=== PATIENT | female | born 1950 | race Caucasian/White ===

== ENCOUNTER → 2016-09-26 | Outpatient (CLI) | payer OTHER ==
[~2016-09-26] MED LIST: AMOX875T PO; ASPI81TA28 PO; BUPR150T7 PO; BUSP-8 PO; CALCTAB5 PO; CYAN100020 PO; DSY100 PO; FLNIN NAE; FOLI1TAB8 PO; HYDR-5688 PO; HYDR12.56 PO; HYDR1TAB2 PO; HYDR25CA PO; LEVO75TA5 PO; LISI-461 PO; MAGIC1 PO; METO5TAB2 PO; MTH25 PO; OMEP20CA59 PO; PHYT100T PO; POTA20TA16 PO; PRC4 PO; RANI300T PO; RGL5 PO; SENNTAB13 PO
--- NOTE | 2016-09-26 14:32 | DIAGNOSTIC IMAGING REPORT ---
VIDEO SWALLOW HISTORY: Dysphagia PHARYNGEAL ESOPHAGEAL DYSPHAGIA TECHNIQUE: Video fluoroscopic evaluation of swallowing was performed in the AP and lateral projections by the speech pathology staff. The patient is fed nectar-thick and thin liquid barium, a barium coated wafer, and barium pudding. FLUOROSCOPY TIME: 3.5 minutes. COMPARISON STUDY: 02/21/2009 FINDINGS: Unremarkable oral and hypopharyngeal motility. No evidence for aspiration. Mild esophageal dysmotility and/or spasm. Operative findings of the gastroesophageal junction consistent with a prior Americo fundoplication. Mild gastroesophageal reflux. IMPRESSION: 1. No aspiration identified. Postoperative change gastroesophageal junction. Mild gastroesophageal reflux. Mild esophageal dysmotility 2. Please see the speech pathologist report for detailed findings and recommendations. Electronically signed by: Oliver Cisse M.D. 09/26/2016 2:30 PM Dictated Date/Time: 09/26/2016 2:27 PM
--- NOTE | 2016-09-27 15:15 | SWALLOWING EVALUATION ---
HISTORY: This 66 year-old woman was referred for a VFSS at [facility] in order to rule out aspiration and address c/o food becoming "stuck" in her throat and esophagus. The patient has a PMH significant for Americo fundoplication, gastroparesis, GERD, hypertension, falls, LE edema, and rhabdomyolysis. Currently the patient's diet level is regular. PROCEDURE: The patient was seen in the Radiology Department of [facility] for the VFSS. Cursory examination of the oral cavity revealed an upper partial of adequate fit, natural lowers in good condition. Movement of the articulators was WNL. The patient was seated on a stool and was viewed in both the Anterior-Posterior (A-P) and Lateral planes. Volitional phonation exercises completed in the A-P plane revealed bilateral vocal fold movement and vocal intensity within functional limits. In the lateral plane, the patient was given the following boluses: 1 tsp. thin liquid barium x 2, single swallow thin liquid barium self-presented from a cup, sequential swallows of thin liquid barium self-presented from a straw, 1 tsp. nectar-thick liquid barium, single swallow nectar-thick liquid barium self-presented from a cup, 1 tsp. barium pudding, and 1 club cracker with barium paste. The patient was then repositioned into the A-P plane and given the following boluses: 1 tsp. nectar-thick liquid barium and 1 tsp. barium pudding. RESULTS: Oral Stage: There was no anterior loss of bolus, indicating good lip closure. The patient was able to maintain a cohesive liquid bolus upon command without any lateral or posterior loss. Mastication was timely and efficient. Lingual motion for bolus transport was mildly slow. There was trace retention lining the tongue after the swallow. The initiation of the pharyngeal swallow occurred when the bolus head reached the valleculae. Pharyngeal Stage: Soft palate elevation was complete. Laryngeal elevation revealed complete superior movement of the thyroid cartilage with complete approximation of the arytenoids to the epiglottic base. Anterior hyoid excursion, epiglottic deflection, and laryngeal vestibular closure were complete. The pharyngeal stripping wave was present and complete. Pharyngeal contraction in the A-P plane was complete. The opening to the pharyngoesophageal segment (PES) was complete with distention and duration of the opening, no obstruction of bolus flow. Trace retention was located between the tongue base and pharyngeal wall during the swallow, indicating mild impairment. There was trace retention lining the base of the tongue and pyriforms after the swallow. There was no evidence of laryngeal penetration or aspiration during this study. Esophageal Stage: There was noted esophageal retention (mid-distal) with retrograde flow below the PES. SUMMARY/RECOMMENDATIONS: This patient presents with normal lester-pharyngeal swallowing mechanics. The patient presents with s/s esophageal dysfunction. The following is recommended: 1. Regular "slippery" diet 2. Aspiration and GERD precautions, straws OK 3. Small frequent meals. Frequent rest breaks and alternating solids and liquids throughout the meal. Begin each meal with a warm, decaffeinated beverage. 4. Follow up with PCP and GI as indicated with any increased difficulty. A summary of the results and recommendations was discussed with the patient and understanding was verbalized. The patient was provided with both verbal and written education re: a slippery diet, used with individual with esophageal dysfunction to assist with comfort while eating. These included examples of different "slippery" food consistencies and strategies for swallow safety as outlined above. Verbal understanding was given. Thank you for referral of this patient. Please contact me at if any additional information is needed.
== END | disposition home or self-care (01) ==
LOC: C.RAD 13:46
PROVIDERS: ATTEND Internal Medicine
DX: R13.14 Dysphagia, pharyngoesophageal phase (principal); K21.9 Gastro-esophageal reflux disease without esophagitis; K22.4 Dyskinesia of esophagus

== ENCOUNTER 2017-03-31 17:41 | Emergency (ER) | payer OTHER ==
[~2017-03-31] VITALS: Ht 162.6 cm; Wt 105.1 kg
[~2017-03-31 17:41] MED LIST changes: -AMOX875T PO; -FOLI1TAB8 PO; -HYDR-5688 PO; -MAGIC1 PO; -METO5TAB2 PO; -MTH25 PO; -PHYT100T PO; -PRC4 PO
[2017-03-31 17:44] VITALS: TEMP 36.9; Ht 162.6 cm; Wt 105.1 kg
[2017-03-31] MEDS ORDERED: MAGIC1 PO (18:44)
--- NOTE | 2017-03-31 18:51 | EMERGENCY ROOM VISIT NOTE ---
ED Visit Note First contact with patient: 18:17 CHIEF COMPLAINT: Mouth ulcer HISTORY OF PRESENT ILLNESS: This 66-year-old female patient presents to the emergency department with her daughter, complaining of an ulcer on her left upper gum x1 week. The patient states since she initially noticed the ulcer, she has been doing salt water gargles, using dental gel, and taking a medication with lidocaine which her daughter gave her. She states she feels that the ulcer is spreading, and getting larger toward her intercom on the roof of her mouth. The patient does state she recently had her knee replaced and back surgery, so is concerned that she could have an infection that may spread to the surgical sites. The patient denies recent illness, fever, chills, nausea , diarrhea, constipation. She also denies drainage from the lesion. The patient has not taken any OTC pain medications. She has not seen her family doctor or dentist regarding the lesion. The patient does wear dentures, however she has been unable to wear them since she initially noticed the ulcer. REVIEW OF SYSTEMS: A 6-system review of systems was performed with positives and pertinent negatives listed in the history of present illness. All other systems were reviewed and are negative. ALLERGIES: Morphine, statins MEDICATIONS: Reglan, Lortab, Prilosec, Wellbutrin, buspirone, lisinopril, potassium supplement, Synthroid, Flonase, aspirin, calcium, ranitidine, vitamin B12, trazodone, hydroxyzine, stool softener plus laxative. I did personally review the patient's medications with her. PMH: Chronic pain, depression, anxiety, hypertension, hypothyroidism, hypokalemia, GERD, seasonal allergies SOCIAL HISTORY: The patient lives locally with her family. She denies drug, alcohol, tobacco use. PHYSICAL EXAM: VITALS: Vitals are noted on the nurse's note and reviewed by myself. Vital signs stable. GENERAL: 36-year-old female, in no acute distress, nondiaphoretic, well- developed well-nourished. SKIN: Capillary reflex less than 2 seconds. HEENT: Normocephalic. PERRLA. EOMI. Nares patent. Mucous membranes moist. Approximately 1 cm ulcer noted noted on left upper gum. Patient does not have natural teeth. There is no drainage, discharge, bleeding coming from the ulceration at this time. Neck is supple without nuchal rigidity. HEART: Regular rate and rhythm without murmurs gallops or rubs. LUNGS: Clear to auscultation bilaterally without wheezes, rales or rhonchi. No retractions or accessory muscle use. MUSCULOSKELETAL: No gross musculoskeletal defects. No pedal edema. No calf tenderness. NEURO: Patient was alert and oriented to person place and time. Normal sensation to light and sharp touch. Deep tendon reflexes 2+ throughout. No focal neurological deficits. EMERGENCY DEPARTMENT COURSE: The patient was seen and evaluated as above. I discussed with her proper treatment for ulcers, and also discussed with her the most likely viral etiology of illness. I advised her of home care instructions , and strongly encouraged her to follow up outpatient with her primary care provider and/or dentist. DIFFERENTIAL DIAGNOSIS: Tench mouth, abscess, bacterial infection, viral infection, HIV, diabetes skin lesion, malignancy, and others DIAGNOSIS: Mouth ulcer DISCHARGE INSTRUCTIONS & TREATMENT: For pain control, you can use the following [id number]-[id number] medicines (if >12 yo): - Regular strength (325mg/tab) Tylenol (acetaminophen) 2 tabs every 4-6 hours as needed. Do not exceed 12 tablets in a 24 hour period. Avoid taking more than 4 grams (4000 mg) of Tylenol per day. This includes any other sources of acetaminophen you may take on a regular basis. - Regular strength (200 mg/tab) Advil (ibuprofen) 1-2 tabs every 4-6 hours as needed. Do not exceed a dose of 3200 mg per day. Use Magic swizzle as directed for discomfort of your mouth related to mouth ulcer. Do not wear dentures until lesion has completely resolved. Eat soft, lukewarm foods until lesion has resolved. Please follow-up with your primary care provider at your regularly scheduled appointment on April 03, this week, for further evaluation and care. Return to the emergency department if you experience fever, chills, nausea, vomiting, body aches, drainage from the lesion, or other associated symptoms. Problem List Medical Problems: (1) Anemia Status: Chronic (2) Anxiety Status: Chronic (3) Depression Status: Chronic (4) Diverticulitis Of Colon With Hemorrhage Status: Resolved (5) Dyslipidemia Status: Chronic (6) Gastroparesis Status: Chronic (7) GERD (gastroesophageal reflux disease) Status: Chronic (8) Hiatal hernia Status: Chronic (9) History of Americo fundoplication Status: Resolved (10) HTN (hypertension) Status: Chronic (11) Hypothyroidism Status: Chronic Surgical Problems: (1) H/O nasal septoplasty Status: Resolved (2) H/O total knee replacement Permanent Comment: bilateral Status: Resolved (3) History of cholecystectomy Status: Resolved (4) History of Americo fundoplication Status: Resolved Current/Historical Medications Scheduled Aspirin (Aspirin Ec), 81 MG PO DAILY Bupropion Hcl (Wellbutrin Sr), 150 MG PO DAILY Buspirone Hcl (Buspirone Hcl), 20 MG PO TID Calcium (Caltrate), 600 MG PO BID Cyanocobalamin (Vitamin B12), 1,000 MCG PO DAILY Fluticasone Propionate (Fluticasone Propionate), 2 SPRAY JOSE LUIS DAILY Hydrochlorothiazide (Hctz), 1 CAP PO DAILY Hydrocodone/Acetaminophen 5MG/500MG (Lortab 5MG/500MG), 1 TABLET PO Q4-6HR PRN Hydroxyzine Pamoate (Vistaril), 1 CAP PO DAILY Levothyroxine Sodium (Levothyroxine Sodium), 75 MCG PO DAILY Lisinopril (Lisinopril), 10 MG PO DAILY Metoclopramide (Reglan *), 5 MG PO ACHS Omeprazole (Prilosec), 20 MG PO DAILY Potassium Ext Rel (Klor-Con), 20 MEQ PO DAILY Ranitidine Hcl (Zantac), 300 MG PO HS Sennosides-Docusate Sodium (Stool Softener Plus Laxat), 4 TABS PO HS Trazodone HCl (Trazodone HCl), 200 MG PO HS Scheduled PRN Diphenhy/Alum/Mag/Sucralfa (Magic Swizzle - Diphenhy/Alum/Mag/Sucralfa), 1 TSP PO Q4H PRN for Pain Allergies Coded Allergies: Morphine (Verified Adverse Reaction, Intermediate, HYPOTENSION, 03/31/17) Statins (Verified Adverse Reaction, Intermediate, SHORTNESS OF BREATH, 07/08) Rhabdomyolysis Vital Signs Date Time Temp Pulse Resp B/P (MAP) Pulse Ox O2 Delivery O2 Flow Rate FiO2 03/31/17 18:59 79 16 143/81 96 03/31/17 17:44 36.9 88 20 122/73 95 Room Air Departure Information Impression Primary Impression: Mouth ulceration Dispostion Home / Self-Care Condition GOOD Prescriptions Diphenhy/Alum/Mag/Sucralfa (Magic Swizzle - Diphenhy/Alum/Mag/Sucralfa) Susp 1 TSP PO Q4H Y for Pain, #200 ML 1 Refill 30ML DIPHENHYDRAMINE SLN 12.5/5ML 60ML MAALOX 4GM CARAFATE SWISH AND SPIT Prov: June Cannon PA-C 03/31/17 Referrals Rae Dominguez M.D. (PCP) Patient Instructions My [facility], Sores Mouth Ch Additional Instructions For pain control, you can use the following hpbo-rni-flvbflf medicines (if >12 yo): - Regular strength (325mg/tab) Tylenol (acetaminophen) 2 tabs every 4-6 hours as needed. Do not exceed 12 tablets in a 24 hour period. Avoid taking more than 4 grams (4000 mg) of Tylenol per day. This includes any other sources of acetaminophen you may take on a regular basis. - Regular strength (200 mg/tab) Advil (ibuprofen) 1-2 tabs every 4-6 hours as needed. Do not exceed a dose of 3200 mg per day. Use Magic swizzle as directed for discomfort of your mouth related to mouth ulcer. Do not wear dentures until lesion has completely resolved. Eat soft, lukewarm foods until lesion has resolved. Please follow-up with your primary care provider at your regularly scheduled appointment on April 03, this week, for further evaluation and care. Return to the emergency department if you experience fever, chills, nausea, vomiting, body aches, drainage from the lesion, or other associated symptoms.
[2017-03-31 18:59] VITALS: BP 143/81; PULSE 79; O2SAT 96
== END 2017-03-31 19:00 | disposition home or self-care (01) ==
LOC: C.EDB 17:41 → C.EDD 19:00
DX: K06.8 Other specified disorders of gingiva and edentulous alveolar ridge (principal); Z98.890 Other specified postprocedural states; Z79.899 Other long term (current) drug therapy; G89.29 Other chronic pain; F32.9 Major depressive disorder, single episode, unspecified; F41.9 Anxiety disorder, unspecified; I10 Essential (primary) hypertension; E03.9 Hypothyroidism, unspecified; E87.6 Hypokalemia; K21.9 Gastro-esophageal reflux disease without esophagitis; D64.9 Anemia, unspecified; E78.5 Hyperlipidemia, unspecified; K31.84 Gastroparesis; Z96.653 Presence of artificial knee joint, bilateral; Z90.49 Acquired absence of other specified parts of digestive tract; Z79.82 Long term (current) use of aspirin

== ENCOUNTER 2017-06-26 12:46 | Emergency (ER) | payer OTHER ==
[~2017-06-26] VITALS: Ht 162.6 cm; Wt 103.4 kg
[~2017-06-26 12:46] MED LIST changes: +MAGIC1 PO
[2017-06-26 12:55] VITALS: TEMP 36.6; Ht 162.6 cm; Wt 103.4 kg
--- NOTE | 2017-06-26 13:16 | EMERGENCY ROOM VISIT NOTE ---
History First contact with patient: 13:06 Chief Complaint: FLANK PAIN Stated Complaint: PAIN IN LOWER LEFT SIDE History of Present Illness The patient is a 66 year old female who presents to the Emergency Room with complaints of lower abdominal pain which started approx 3 days prior . She states that the pain is a cramping nature with gradual onset and affects the LLQ > RLQ. The patient states that it is a 4/10 pain with no specific aggravating factors. The patient notes that she has a history of diverticulitis and this is similar in nature to previous episodes. She has a history of cholecystectomy and hiatal hernia repair. The patient also notes that she has no history of nephrolithiasis. She denies change in bowel habits, hematuria, hematochezia, fever or chest pain. Review of Systems A 10 point review of systems was completed and negative aside from above Past Medical/Surgical History Medical Problems: (1) Anemia (2) Anxiety (3) Depression (4) Diverticulitis Of Colon With Hemorrhage (5) Dyslipidemia (6) Gastroparesis (7) GERD (gastroesophageal reflux disease) (8) Hiatal hernia (9) History of Americo fundoplication (10) HTN (hypertension) (11) Hypothyroidism (12) Myopathy Surgical Problems: (1) H/O nasal septoplasty (2) H/O total knee replacement (3) History of cholecystectomy (4) History of Americo fundoplication Family History Cancer Diabetes mellitus Gallbladder disease Heart disease Hypertension Kidney disease Kidney stones Social History Smoking Status: Never Smoker Smokeless Tobacco Use: No Alcohol Use: occasionally Drug Use: none Marital Status: Housing Status: lives with family Occupation Status: retired Current/Historical Medications Scheduled Amoxicillin & Pot Clavulanate (Augmentin 875-125 mg), 1 TAB PO BID Aspirin (Aspirin Ec), 81 MG PO DAILY Bupropion Hcl (Wellbutrin Sr), 150 MG PO DAILY Buspirone Hcl (Buspirone Hcl), 20 MG PO TID Cyanocobalamin (Vitamin B12), 1,000 MCG PO DAILY Cyproheptadine HCl (Cyproheptadine HCl), 4 MG PO DAILY Folic Acid (Folvite), 1 MG PO DAILY Levothyroxine Sodium (Levothyroxine Sodium), 75 MCG PO DAILY Lisinopril (Lisinopril), 10 MG PO DAILY Methotrexate (Methotrexate), 6 TAB PO WK Metoclopramide Hcl (Metoclopramide Hcl), 5 MG PO TID Omeprazole (Prilosec), 20 MG PO DAILY Phytonadione (Vitamin K), 200 MCG PO DAILY Potassium Ext Rel (Klor-Con), 20 MEQ PO DAILY Trazodone HCl (Trazodone HCl), 200 MG PO HS Scheduled PRN Hydrocodone/Acetaminophen 5MG/325MG ([place] 5MG/325MG), 1 TAB PO Q4H PRN for Pain Allergies morphine, statins Physical Exam Vital Signs Date Time Temp Pulse Resp B/P (MAP) Pulse Ox O2 Delivery O2 Flow Rate FiO2 06/26/17 14:04 74 18 167/96 96 Room Air 06/26/17 12:55 36.6 75 18 159/86 97 Room Air Physical Exam General: ambulatory, not in acute distress Skin: no rashes noted, no suspicious lesions, no areas of inflammations/ lacerations/ erythema noted CVS: S1/ S2 noted, RRR, no rubs/ murmurs noted, no cyanosis RVS: Clear throughout bilaterally, not in acute respiratory distress, no wheezing/ rales/ crackles noted ENT: no erythema/ injection/ ulcerations noted in the pharynx, no lymphadenopathy Neck: inspection WNL, full ROM of neck ABD: BSx4, mild pain/ tenderness on palpation to lower abdomen without rebound , no organomegaly, negative salazar's, psoas, Rovsing, CVA tenderness MSK: inspection of all limbs WNL, motor and sensation intact in all limbs, no swelling/ pain on palpation of joints NVS: PERRL, EOMI, sensation intact in all extremities Lymph: No lymphadenopathy palpable Medical Decision & Procedures ER Provider Diagnostic Interpretation: [~ rep ct add3]] CT OF THE ABDOMEN AND PELVIS WITHOUT CONTRAST, STONE PROTOCOL CLINICAL HISTORY: Left lower quadrant abdominal pain. COMPARISON STUDY: CT of the abdomen and pelvis April 30, 2009. TECHNIQUE: Helical axial images of the abdomen and pelvis were obtained without IV or oral contrast according to renal stone protocol. A dose lowering technique was utilized adhering to the principles of ALARA. FINDINGS: Visualized portions of the lower chest demonstrate a small hiatal hernia and a trace left pleural effusion. No renal, ureteral or bladder calculi are present. There is no hydronephrosis or hydroureter. Evaluation of the remainder of the abdomen and pelvis is suboptimal on this unenhanced exam. There is no biliary ductal dilatation status post cholecystectomy. Unenhanced images of liver, spleen, adrenal glands and pancreas are normal. There is no evidence for a bowel obstruction. There is extensive colonic diverticulosis. There is minimal infiltration adjacent to a diverticulum of the posterior aspect of the distal descending colon shown best on axial image 313 of 481. This reflects mild acute diverticulitis. No free air or abscess is present. There is no lymphadenopathy. No suspicious skeletal lesions are identified. Postoperative findings within the lumbar spine are noted. IMPRESSION: 1. Mild acute diverticulitis of the distal descending colon. No free air or abscess. 2. No urinary calculi or hydronephrosis. 3. Small hiatal hernia and trace left pleural effusion. Laboratory Results 06/26/17 13:11 Red Blood Count 3.63, Mean Corpuscular Volume 94.2, Mean Corpuscular Hemoglobin 30.9, Mean Corpuscular Hemoglobin Concent 32.7, Mean Platelet Volume 8.4, Neutrophils (%) (Auto) 50.7, Lymphocytes (%) (Auto) 33.0, Monocytes (%) (Auto) 11.9, Eosinophils (%) (Auto) 3.8, Basophils (%) (Auto) 0.4, Neutrophils # (Auto ) 5.19, Lymphocytes # (Auto) 3.38, Monocytes # (Auto) 1.22, Eosinophils # (Auto ) 0.39, Basophils # (Auto) 0.04 06/26/17 13:11 Test 06/26/17 13:06 06/26/17 13:11 Creatine Kinase MB Ratio (0-3.0) White Blood Count 10.24 K/uL (4.8-10.8) Red Blood Count 3.63 M/uL (4.2-5.4) Hemoglobin 11.2 g/dL (12.0-16.0) Hematocrit 34.2 % (37-47) Mean Corpuscular Volume 94.2 fL (80-100) Mean Corpuscular Hemoglobin 30.9 pg (25-34) Mean Corpuscular Hemoglobin Concent 32.7 g/dl (32-36) Platelet Count 275 K/uL (130-400) Mean Platelet Volume 8.4 fL (7.4-10.4) Neutrophils (%) (Auto) 50.7 % Lymphocytes (%) (Auto) 33.0 % Monocytes (%) (Auto) 11.9 % Eosinophils (%) (Auto) 3.8 % Basophils (%) (Auto) 0.4 % Neutrophils # (Auto) 5.19 K/uL (1.4-6.5) Lymphocytes # (Auto) 3.38 K/uL (1.2-3.4) Monocytes # (Auto) 1.22 K/uL (0.11-0.59) Eosinophils # (Auto) 0.39 K/uL (0-0.5) Basophils # (Auto) 0.04 K/uL (0-0.2) RDW Standard Deviation 49.5 fL (36.4-46.3) RDW Coefficient of Variation 14.6 % (11.5-14.5) Immature Granulocyte % (Auto) 0.2 % Immature Granulocyte # (Auto) 0.02 K/uL (0.00-0.02) Urine Color YELLOW Urine Appearance CLEAR (CLEAR) Urine pH 6.0 (4.5-7.5) Urine Specific [place] 1.010 (1.000-1.030) Urine Protein NEG (NEG) Urine Glucose (UA) NEG (NEG) Urine Ketones NEG (NEG) Urine Occult Blood NEG (NEG) Urine Nitrite NEG (NEG) Urine Bilirubin NEG (NEG) Urine Urobilinogen NEG (NEG) Urine Leukocyte Esterase NEG (NEG) Anion Gap 9.0 mmol/L (3-11) Est Creatinine Clear Calc Drug Dose 81.1 ml/min Estimated GFR () 88.3 Estimated GFR (Non- 76.2 BUN/Creatinine Ratio 10.5 (10-20) Calcium Level 8.6 mg/dl (8.5-10.1) Total Bilirubin 0.2 mg/dl (0.2-1) Aspartate Amino Transf (AST/SGOT) 23 U/L (15-37) Alanine Aminotransferase (ALT/SGPT) 35 U/L (12-78) Alkaline Phosphatase 69 U/L (45-117) Creatine Kinase MB 37.8 ng/ml (0.5-3.6) Troponin I < 0.015 ng/ml (0-0.045) Total Protein 7.2 gm/dl (6.4-8.2) Albumin 3.2 gm/dl (3.4-5.0) Globulin 4.0 gm/dl (2.5-4.0) Albumin/Globulin Ratio 0.8 (0.9-2) Lipase 120 U/L (73-393) Medications Administered Medications (Trade) Dose Ordered Sig/Michel Route Start Time Stop Time Status Last Admin Dose Admin Sodium Chloride 1,000 ml @ 999 mls/hr Q1H1M ONCE IV 06/26/17 14:00 06/26/17 15:00 06/26/17 14:04 999 MLS/HR ED Course 1300: Patient was assessed by resident 1400: NSS 1 L bolus x 1 1415: Augmentin 875 mg x 1 PO and discussed results with patient, agreeable to d /c Medical Decision Differential diagnosis: Etiologies such as appendicitis, diverticulitis, PUD, biliary pathology, UTI, pancreatitis, obstruction, mesenteric ischemia, aortic pathology, infections, inflammatory bowel disease, renal colic, as well as others were entertained. This is a 66 yo f that is suffering from LLQ pain. CBC did not reveal any leukocytosis however did reveal an anemia of 11 however this hgb is better than her BL of 9.5-10. The patient's CMP was unremarkable and no acute processes noted. Troponin was negative with an elevated CKMB. The patient has a chronically elevated CKMB and is actually better than her BL. The patient has a normal lipase making pancreatitis unlikely. UA was unremarkable. Ct abd reflective of acute diverticulitis. Patient was given Augmentin along with a script and discussed discharge with patient along with red flags. Patient reflected understanding and was d/c home. Blood Pressure Screening Patient's blood pressure: Elevated blood pressure Blood pressure disposition: Elevated BP felt to be situational, Referred to PCP Impression Primary Impression: Diverticulitis Departure Information Dispostion Home / Self-Care Condition GOOD Prescriptions Amoxicillin & Pot Clavulanate (Augmentin 875-125 mg) 1 Tab Tab 1 TAB PO BID for 10 Days, #20 TAB Prov: Chula Ledbetter MD 06/26/17 Referrals Rae Dominguez M.D. (PCP) Patient Instructions My [facility] Problem Qualifiers Primary Impression: Diverticulitis Diverticulitis site: large intestine Diverticulitis bleeding: without bleeding Diverticulitis complication: without perforation or abscess Qualified Codes: K57.32 - Diverticulitis of large intestine without perforation or abscess without bleeding
[2017-06-26] MEDS ORDERED: FOLI1TAB7 PO (13:35)
[2017-06-26] MEDS ORDERED: PHYT100T PO (13:35)
[2017-06-26] MEDS ORDERED: HYDR-5688 PO (13:35)
[2017-06-26] MEDS ORDERED: PRC4 PO (13:35)
[2017-06-26] MEDS ORDERED: MTH25 PO (13:35)
[2017-06-26] MEDS ORDERED: METO5TAB2 PO (13:35)
[2017-06-26 13:37] LABS: BASO % 0.4 %; BASO ABS # 0.04 K/uL (0-0.2); COMPLETE YES; EOS % 3.8 %; HEMATOCRIT 34.2 % (37-47); IG% 0.2 %; LYMPH ABS # 3.38 K/uL (1.2-3.4); MEAN CELL VOLUME 94.2 fL (80-100); MEAN CORPUSCULAR HEMOGLOBIN 30.9 pg (25-34); MEAN CORPUSCULAR HGB CONC 32.7 g/dl (32-36); MEAN PLATELET VOLUME 8.4 fL (7.4-10.4); MONO % 11.9 %; NEUT % 50.7 %; PLATELET COUNT 275 K/uL (130-400); RED BLOOD COUNT 3.63 M/uL (4.2-5.4); WHITE BLOOD COUNT 10.24 K/uL (4.8-10.8)
[2017-06-26 13:41] LABS: URINE APPEARANCE CLEAR (CLEAR); URINE BILIRUBIN NEG (NEG); URINE COLOR YELLOW; URINE NITRITE NEG (NEG); UROBILINOGEN NEG (NEG); ZZUR CULT IF INDIC CLEAN CATCH NO
[2017-06-26 13:45] LABS: ALT/SGPT 35 U/L (12-78); BLOOD UREA NITROGEN 9 mg/dl (7-18); BUN/CREATININE RATIO 10.5 (10-20); CALCIUM 8.6 mg/dl (8.5-10.1); CARBON DIOXIDE 21 mmol/L (21-32); CHLORIDE 106 mmol/L (98-107); CREATININE 0.81 mg/dl (0.60-1.20); GLUCOSE 111 mg/dl (70-99); POTASSIUM 3.9 mmol/L (3.5-5.1); SODIUM 136 mmol/L (136-145)
[2017-06-26 13:50] LABS: ALB/GLOB RATIO 0.8 (0.9-2); ALKALINE PHOSPHATASE 69 U/L (45-117); AST/SGOT 23 U/L (15-37)
[2017-06-26 13:51] LABS: MANUAL MICROSCOPIC REQUIRED? NO; REVIEW REQ? NO
[2017-06-26] MEDS ORDERED: SODIUM CHLORIDE 0.9% 1000ML 1,000 ML IV ONE (14:00)
[2017-06-26 14:04] VITALS: BP 167/96; PULSE 74; O2SAT 96
--- NOTE | 2017-06-26 14:07 | DIAGNOSTIC IMAGING REPORT ---
CT OF THE ABDOMEN AND PELVIS WITHOUT CONTRAST, STONE PROTOCOL CLINICAL HISTORY: Left lower quadrant abdominal pain. COMPARISON STUDY: CT of the abdomen and pelvis April 30, 2009. TECHNIQUE: Helical axial images of the abdomen and pelvis were obtained without IV or oral contrast according to renal stone protocol. A dose lowering technique was utilized adhering to the principles of ALARA. FINDINGS: Visualized portions of the lower chest demonstrate a small hiatal hernia and a trace left pleural effusion. No renal, ureteral or bladder calculi are present. There is no hydronephrosis or hydroureter. Evaluation of the remainder of the abdomen and pelvis is suboptimal on this unenhanced exam. There is no biliary ductal dilatation status post cholecystectomy. Unenhanced images of liver, spleen, adrenal glands and pancreas are normal. There is no evidence for a bowel obstruction. There is extensive colonic diverticulosis. There is minimal infiltration adjacent to a diverticulum of the posterior aspect of the distal descending colon shown best on axial image 313 of 481. This reflects mild acute diverticulitis. No free air or abscess is present. There is no lymphadenopathy. No suspicious skeletal lesions are identified. Postoperative findings within the lumbar spine are noted. IMPRESSION: 1. Mild acute diverticulitis of the distal descending colon. No free air or abscess. 2. No urinary calculi or hydronephrosis. 3. Small hiatal hernia and trace left pleural effusion. Electronically signed by: Ahsan Mejia M.D. 06/26/2017 2:05 PM Dictated Date/Time: 06/26/2017 1:59 PM
[2017-06-26] MEDS ORDERED: AMOXICILLIN/CLAVULANATE TAB 875 MG TAB PO ONE (14:15)
[2017-06-26] MEDS ORDERED: AMOX875T PO (14:24)
--- NOTE | 2017-06-26 14:54 | EMERGENCY ROOM VISIT NOTE ---
History Report prepared by Pauline: Satinder Garcia Under the Supervision of: Dr. Shayne Jewell D.O. First contact with patient: 13:06 Chief Complaint: FLANK PAIN Stated Complaint: PAIN IN LOWER LEFT SIDE History of Present Illness The patient is a 66 year old female who presents to the Emergency Room with complaints of intermittent LLQ abdominal pain that began 3 days ago. She rates her pain mild in severity. She has a past medical history of diverticulitis and believes that she may be having episode of this. She denies any abnormal urinary symptoms, hematuria, hematochezia, melena, nausea, vomiting, diarrhea, or fevers. Source of History: patient Onset: 3 days ago Position: abdomen (LLQ) Symptom Intensity: mild Quality: other (Cramping) Timing: constant Associated Symptoms: No fevers, No nausea, No vomiting, No diarrhea, No urinary symptoms Review of Systems See HPI for pertinent positives & negatives. A total of 10 systems reviewed and were otherwise negative. Past Medical & Surgical Medical Problems: (1) Anemia (2) Anxiety (3) Depression (4) Diverticulitis Of Colon With Hemorrhage (5) Dyslipidemia (6) Gastroparesis (7) GERD (gastroesophageal reflux disease) (8) Hiatal hernia (9) History of Americo fundoplication (10) HTN (hypertension) (11) Hypothyroidism (12) Myopathy Surgical Problems: (1) H/O nasal septoplasty (2) H/O total knee replacement (3) History of cholecystectomy (4) History of Americo fundoplication Family History Cancer Diabetes mellitus Gallbladder disease Heart disease Hypertension Kidney disease Kidney stones Social History Smoking Status: Never Smoker Alcohol Use: occasionally Drug Use: none Marital Status: Housing Status: lives with family Occupation Status: retired Current/Historical Medications Scheduled Amoxicillin & Pot Clavulanate (Augmentin 875-125 mg), 1 TAB PO BID Aspirin (Aspirin Ec), 81 MG PO DAILY Bupropion Hcl (Wellbutrin Sr), 150 MG PO DAILY Buspirone Hcl (Buspirone Hcl), 20 MG PO TID Cyanocobalamin (Vitamin B12), 1,000 MCG PO DAILY Cyproheptadine HCl (Cyproheptadine HCl), 4 MG PO DAILY Folic Acid (Folvite), 1 MG PO DAILY Levothyroxine Sodium (Levothyroxine Sodium), 75 MCG PO DAILY Lisinopril (Lisinopril), 10 MG PO DAILY Methotrexate (Methotrexate), 6 TAB PO WK Metoclopramide Hcl (Metoclopramide Hcl), 5 MG PO TID Omeprazole (Prilosec), 20 MG PO DAILY Phytonadione (Vitamin K), 200 MCG PO DAILY Potassium Ext Rel (Klor-Con), 20 MEQ PO DAILY Trazodone HCl (Trazodone HCl), 200 MG PO HS Scheduled PRN Hydrocodone/Acetaminophen 5MG/325MG ([place] 5MG/325MG), 1 TAB PO Q4H PRN for Pain Allergies Coded Allergies: Morphine (Verified Adverse Reaction, Intermediate, HYPOTENSION, 03/31/17) Statins (Verified Adverse Reaction, Intermediate, SHORTNESS OF BREATH, 07/08) Rhabdomyolysis Physical Exam Vital Signs Date Time Temp Pulse Resp B/P (MAP) Pulse Ox O2 Delivery O2 Flow Rate FiO2 06/26/17 14:04 74 18 167/96 96 Room Air 06/26/17 12:55 36.6 75 18 159/86 97 Room Air Physical Exam CONSTITUTIONAL/VITAL SIGNS: Reviewed / noted above. GENERAL: Non-toxic in appearance. INTEGUMENTARY: Warm, dry, and [place]. HEAD: Normocephalic. EYES: without scleral icterus or trauma. ENT/OROPHARYNX: clear and moist. LYMPHADENOPATHY/NECK: Is supple without lymphadenopathy or meningismus. RESPIRATORY: Lungs clear and equal. CARDIOVASCULAR: Regular rate and rhythm. GI/ABDOMEN: Soft with mild LLQ tenderness. No organomegaly or pulsatile mass. No rebound or guarding. Normal bowel sounds. EXTREMITIES: Warm and well perfused. BACK: No CVA tenderness. NEUROLOGICAL: Intact without focal deficits. PSYCHIATRIC: normal affect. MUSCULOSKELETAL: Normally developed with good muscle tone. Medical Decision & Procedures ER Provider Diagnostic Interpretation: Radiology results as stated below per my review and radiologist interpretation: CT OF THE ABDOMEN AND PELVIS WITHOUT CONTRAST, STONE PROTOCOL CLINICAL HISTORY: Left lower quadrant abdominal pain. COMPARISON STUDY: CT of the abdomen and pelvis April 30, 2009. TECHNIQUE: Helical axial images of the abdomen and pelvis were obtained without IV or oral contrast according to renal stone protocol. A dose lowering technique was utilized adhering to the principles of ALARA. FINDINGS: Visualized portions of the lower chest demonstrate a small hiatal hernia and a trace left pleural effusion. No renal, ureteral or bladder calculi are present. There is no hydronephrosis or hydroureter. Evaluation of the remainder of the abdomen and pelvis is suboptimal on this unenhanced exam. There is no biliary ductal dilatation status post cholecystectomy. Unenhanced images of liver, spleen, adrenal glands and pancreas are normal. There is no evidence for a bowel obstruction. There is extensive colonic diverticulosis. There is minimal infiltration adjacent to a diverticulum of the posterior aspect of the distal descending colon shown best on axial image 313 of 481. This reflects mild acute diverticulitis. No free air or abscess is present. There is no lymphadenopathy. No suspicious skeletal lesions are identified. Postoperative findings within the lumbar spine are noted. IMPRESSION: 1. Mild acute diverticulitis of the distal descending colon. No free air or abscess. 2. No urinary calculi or hydronephrosis. 3. Small hiatal hernia and trace left pleural effusion. Electronically signed by: Ahsan Mejia M.D. 06/26/2017 2:05 PM Dictated Date/Time: 06/26/2017 1:59 PM Laboratory Results 06/26/17 13:11 Red Blood Count 3.63, Mean Corpuscular Volume 94.2, Mean Corpuscular Hemoglobin 30.9, Mean Corpuscular Hemoglobin Concent 32.7, Mean Platelet Volume 8.4, Neutrophils (%) (Auto) 50.7, Lymphocytes (%) (Auto) 33.0, Monocytes (%) (Auto) 11.9, Eosinophils (%) (Auto) 3.8, Basophils (%) (Auto) 0.4, Neutrophils # (Auto ) 5.19, Lymphocytes # (Auto) 3.38, Monocytes # (Auto) 1.22, Eosinophils # (Auto ) 0.39, Basophils # (Auto) 0.04 06/26/17 13:11 Test 06/26/17 13:06 06/26/17 13:11 Creatine Kinase MB Ratio (0-3.0) White Blood Count 10.24 K/uL (4.8-10.8) Red Blood Count 3.63 M/uL (4.2-5.4) Hemoglobin 11.2 g/dL (12.0-16.0) Hematocrit 34.2 % (37-47) Mean Corpuscular Volume 94.2 fL (80-100) Mean Corpuscular Hemoglobin 30.9 pg (25-34) Mean Corpuscular Hemoglobin Concent 32.7 g/dl (32-36) Platelet Count 275 K/uL (130-400) Mean Platelet Volume 8.4 fL (7.4-10.4) Neutrophils (%) (Auto) 50.7 % Lymphocytes (%) (Auto) 33.0 % Monocytes (%) (Auto) 11.9 % Eosinophils (%) (Auto) 3.8 % Basophils (%) (Auto) 0.4 % Neutrophils # (Auto) 5.19 K/uL (1.4-6.5) Lymphocytes # (Auto) 3.38 K/uL (1.2-3.4) Monocytes # (Auto) 1.22 K/uL (0.11-0.59) Eosinophils # (Auto) 0.39 K/uL (0-0.5) Basophils # (Auto) 0.04 K/uL (0-0.2) RDW Standard Deviation 49.5 fL (36.4-46.3) RDW Coefficient of Variation 14.6 % (11.5-14.5) Immature Granulocyte % (Auto) 0.2 % Immature Granulocyte # (Auto) 0.02 K/uL (0.00-0.02) Urine Color YELLOW Urine Appearance CLEAR (CLEAR) Urine pH 6.0 (4.5-7.5) Urine Specific Broadbent 1.010 (1.000-1.030) Urine Protein NEG (NEG) Urine Glucose (UA) NEG (NEG) Urine Ketones NEG (NEG) Urine Occult Blood NEG (NEG) Urine Nitrite NEG (NEG) Urine Bilirubin NEG (NEG) Urine Urobilinogen NEG (NEG) Urine Leukocyte Esterase NEG (NEG) Anion Gap 9.0 mmol/L (3-11) Est Creatinine Clear Calc Drug Dose 81.1 ml/min Estimated GFR () 88.3 Estimated GFR (Non- 76.2 BUN/Creatinine Ratio 10.5 (10-20) Calcium Level 8.6 mg/dl (8.5-10.1) Total Bilirubin 0.2 mg/dl (0.2-1) Aspartate Amino Transf (AST/SGOT) 23 U/L (15-37) Alanine Aminotransferase (ALT/SGPT) 35 U/L (12-78) Alkaline Phosphatase 69 U/L (45-117) Creatine Kinase MB 37.8 ng/ml (0.5-3.6) Troponin I < 0.015 ng/ml (0-0.045) Total Protein 7.2 gm/dl (6.4-8.2) Albumin 3.2 gm/dl (3.4-5.0) Globulin 4.0 gm/dl (2.5-4.0) Albumin/Globulin Ratio 0.8 (0.9-2) Lipase 120 U/L (73-393) Laboratory results as stated above per my review. Medications Administered Medications (Trade) Dose Ordered Sig/Michel Route Start Time Stop Time Status Last Admin Dose Admin Sodium Chloride 1,000 ml @ 999 mls/hr Q1H1M ONCE IV 06/26/17 14:00 06/26/17 15:00 06/26/17 14:04 999 MLS/HR Amoxicillin/ Clavulanate Potassium (Augmentin Tab) 875 mg NOW ONCE PO 06/26/17 14:15 06/26/17 14:17 DC 06/26/17 14:42 875 MG ED Course 1306: Previous medical records were reviewed. The patient was evaluated in room C7. A complete history and physical examination was performed. 1400: Sodium Chloride 1000 ml @ 999 mls/hr IV 1415: Augmentin Tab 875 mg PO 1435: On reevaluation, the patient is resting. I discussed the results and findings with the patient. She verbalized agreement of the treatment plan. She was discharged home. Medical Decision Differential considered: pancreatitis, hepatitis, or acute cholecystitis, AAA, UTI, pyelonephritis, kidney stones, appendicitis, diverticulitis, shingles, bowel obstruction mesenteric ischemia, intussusception,hernia, ovarian torsion, ruptured ovarian cyst. This is a 66-year-old female who presents to the ED with a chief complaint of left lower quadrant abdominal pain for the past 3 days. The patient reports history of diverticulitis. She denies any nausea, vomiting or diarrhea. She does not have fevers or urinary symptoms. Her exam reveals left lower quadrant abdominal tenderness. A CT scan reveals mild acute descending colonic diverticulitis. CBC and complete metabolic panel were normal and lipase is normal. Urine did not show infection. The patient was treated with Augmentin. She is felt to be stable for discharge and outpatient follow-up. Medication Reconcilliation Current Medication List: was personally reviewed by me Blood Pressure Screening Patient's blood pressure: Elevated blood pressure Blood pressure disposition: Elevated BP felt to be situational Impression Primary Impression: Diverticulitis Scribe Attestation The scribe's documentation has been prepared under my direction and personally reviewed by me in its entirety. I confirm that the note above accurately reflects all work, treatment, procedures, and medical decision making performed by me. Departure Information Dispostion Home / Self-Care Prescriptions Amoxicillin & Pot Clavulanate (Augmentin 875-125 mg) 1 Tab Tab 1 TAB PO BID for 10 Days, #20 TAB Prov: Chula Ledbetter MD 06/26/17 Referrals Rae Dominguez M.D. (PCP) Forms HOME CARE DOCUMENTATION FORM, IMPORTANT VISIT INFORMATION Patient Instructions My [facility] Additional Instructions You have been diagnosed with diverticulitis. We recommend a clear liquid diet for the next 24 hours and slowly advance diet as tolerated. You will be placed on Augmentin for treatment of the diverticulitis. Take this twice a day with food as this can cause stomach upset as well as diarrhea. If you develop worsening of changing symptoms please return to the ED. Please follow with PCP over the next week Problem Qualifiers Primary Impression: Diverticulitis Diverticulitis site: large intestine Diverticulitis bleeding: without bleeding Diverticulitis complication: without perforation or abscess Qualified Codes: K57.32 - Diverticulitis of large intestine without perforation or abscess without bleeding
== END 2017-06-26 14:54 | disposition home or self-care (01) ==
LOC: C.EDB 12:46 → C.EDC 14:54
DX: K57.32 Diverticulitis of large intestine without perforation or abscess without bleeding (principal); D64.9 Anemia, unspecified; F41.9 Anxiety disorder, unspecified; F32.9 Major depressive disorder, single episode, unspecified; E78.5 Hyperlipidemia, unspecified; K21.9 Gastro-esophageal reflux disease without esophagitis; I10 Essential (primary) hypertension; E03.9 Hypothyroidism, unspecified; Z83.3 Family history of diabetes mellitus; Z82.49 Family history of ischemic heart disease and other diseases of the circulatory system; Z79.82 Long term (current) use of aspirin

== ENCOUNTER 2017-10-28 14:30 | Inpatient (IN) | payer OTHER ==
[~2017-10-28] VITALS: Ht 160 cm; Wt 100.0 kg
[~2017-10-28 14:30] MED LIST changes: -CALCTAB5 PO; -FLNIN NAE; +FOLI1TAB8 PO; +HYDR-5688 PO; -HYDR12.56 PO; -HYDR1TAB2 PO; -HYDR25CA PO; -MAGIC1 PO; +METO5TAB2 PO; +MTH25 PO; +PHYT100T PO; +PRC4 PO; -RANI300T PO; -RGL5 PO; -SENNTAB13 PO
[2017-10-28 16:47] VITALS: BP 143/68; PULSE 81; TEMP 36.6; O2SAT 96; Ht 160 cm; Wt 100.0 kg
[2017-10-28] MEDS ORDERED: POLYETHYLENE (MIRALAX) 17 GM PACK PO PRN (17:30)
[2017-10-28] MEDS ORDERED: ACETAMINOPHEN 325 MG TAB PO PRN (17:30)
[2017-10-28] MEDS ORDERED: ONDANSETRON INJ 2 MG/ML 2 ML VIAL IV PRN (17:30)
[2017-10-28] MEDS ORDERED: SENNTAB13 PO (17:31)
[2017-10-28] MEDS ORDERED: FERR50TA3 (17:31)
[2017-10-28 17:59] LABS: HEMATOCRIT 30.7 % (37-47); HEMOGLOBIN 10.5 g/dL (12.0-16.0); MEAN CELL VOLUME 94.2 fL (80-100); MEAN CORPUSCULAR HEMOGLOBIN 32.2 pg (25-34); MEAN CORPUSCULAR HGB CONC 34.2 g/dl (32-36); MEAN PLATELET VOLUME 8.2 fL (7.4-10.4); PLATELET COUNT 255 K/uL (130-400); RED CELL DISTRIBUTION WIDTH CV 15.1 % (11.5-14.5); RED CELL DISTRIBUTION WIDTH SD 50.8 fL (36.4-46.3); WHITE BLOOD COUNT 9.74 K/uL (4.8-10.8)
[2017-10-28 18:25] LABS: INR 0.9 (0.9-1.1)
[2017-10-28 18:30] LABS: CALCIUM 8.7 mg/dl (8.5-10.1); CREATININE 0.72 mg/dl (0.60-1.20); POTASSIUM 4.4 mmol/L (3.5-5.1)
[2017-10-28] MEDS ORDERED: FLUT0.15 NAE (18:30)
[2017-10-28] MEDS ORDERED: MULT-190 PO (18:30)
[2017-10-28] MEDS ORDERED: MENA1CAP PO (18:30)
[2017-10-28] MEDS ORDERED: FERR325T5 PO (18:30)
[2017-10-28] MEDS ORDERED: RANI300T2 PO (18:30)
[2017-10-28] MEDS ORDERED: DOCUSATE SODIUM/SENNA 50/8.6MG TAB PO PRN (18:45)
[2017-10-28] MEDS: HYDROCODONE/ACETAMIN 5/325MG TAB PO PRN (19:35)
[2017-10-28] MEDS: TRAZODONE HCL 100 MG TAB PO SCH (20:47)
[2017-10-28] MEDS: ENOXAPARIN 40 MG/0.4 ML SYR SQ SCH (20:48)
[2017-10-28] MEDS: METOCLOPRAMIDE HCL 5 MG TAB PO SCH (20:50)
[2017-10-28] MEDS: RANITIDINE HCL 150 MG TAB PO SCH (20:50)
--- NOTE | 2017-10-28 23:21 | History and Physical ---
History & Physical Date & Time of Service: Oct 28, 2017 at 22:50 Chief Complaint: Hyponatremia Primary Care Physician: Rae Dominguez M.D. History of Present Illness Source: patient, clinic records, hospital records Pt is 67 y/o F with PMH HTN, polymyositis on methotrexate, OA, anxiety, depression, hyperlipidemia seen as direct admission for hyponatremia. Pt been seen by PCP and seen by Dr Bustamante today for hyponatremia. on 10/16/17 Na was 125, on 10/23/17 Na was 125, today was 123 out pt. Pt admits has been drinking approx 10 cups water, juice, tea and just started drinking this much over past couple of weeks. She states "I'm just bored so I go get something to drink". Denies excessive thirst. She states tried to cut back over past several days, but she is unsure exactly how much she is drinking, maybe 6 cups daily? Reports some intermittent frontal DUKE past couple of weeks, resolves with aleve. Follows with Dr Garcia for polymyositis. Uses hydrocodone daily and aleve prn. She reports chronic leg weakness with walking and chronic fatigue. Denies worsening. uses a cane sometimes to assist in walking. Pt lives in basement apartment of [facility] and states is able to do her ADLs. Denies fever/chills, diaphoresis, N/V/D/C, dizziness, syncope, vision changes, neck pain, CP, SOB, orthopnea, palpitations, cough, sore throat, choking, otalgia, rhinorrhea, abdominal pain, paresthesias, extremity edema, rashes, urinary symptoms, muscle cramps. Past Medical/Surgical History Medical Problems: (1) Anemia Status: Chronic (2) Anxiety Status: Chronic (3) Depression Status: Chronic (4) Diverticulitis Of Colon With Hemorrhage Status: Resolved (5) Dyslipidemia Status: Chronic (6) Gastroparesis Status: Chronic (7) GERD (gastroesophageal reflux disease) Status: Chronic (8) Hiatal hernia Status: Chronic (9) History of Americo fundoplication Status: Resolved (10) HTN (hypertension) Status: Chronic (11) Hypothyroidism Status: Chronic (12) Osteoarthritis Status: Chronic (13) Polymyositis Status: Chronic (14) Rhabdomyolysis Status: Resolved (15) Shortness of breath Status: Resolved Surgical Problems: (1) H/O nasal septoplasty Status: Resolved (2) H/O total knee replacement Permanent Comment: bilateral Status: Resolved (3) History of cholecystectomy Status: Resolved (4) History of Ameirco fundoplication Status: Resolved Family History Cancer Diabetes mellitus Gallbladder disease Heart disease Hypertension Kidney disease Kidney stones Social History Smoking Status: Never Smoker Smokeless Tobacco Use: No Alcohol Use: occasionally (1 glass a wine a month) Drug Use: none Marital Status: Housing status: other (lives alone in ) Occupational Status: retired Immunizations History of Influenza Vaccine: No Influenza Vaccine Date: Aug 30, 2009 History of Tetanus Vaccine?: Yes History of Pneumococcal: No History of Hepatitis B Vaccine: No Multi-Drug Resistant Organisms History of MDRO: No Allergies Coded Allergies: Morphine (Verified Adverse Reaction, Intermediate, HYPOTENSION, 03/31/17) Statins (Verified Adverse Reaction, Intermediate, SHORTNESS OF BREATH, 07/08) Rhabdomyolysis Home Medications Scheduled Aspirin (Aspirin Ec), 81 MG PO DAILY Bupropion Hcl (Wellbutrin Sr), 150 MG PO DAILY Buspirone Hcl (Buspirone Hcl), 20 MG PO TID Cyanocobalamin (Vitamin B12), 1,000 MCG PO DAILY Cyproheptadine HCl (Cyproheptadine HCl), 4 MG PO DAILY Ferrous Sulfate (Ferrous Sulfate), 1 TAB PO DAILY Fluticasone Propionate (Nasal) (Flonase Allergy Relief), 2 SPRAYS JOSE LUIS DAILY Folic Acid (Folvite), 1 MG PO DAILY Levothyroxine Sodium (Levothyroxine Sodium), 75 MCG PO DAILY Lisinopril (Lisinopril), 10 MG PO DAILY Menaquinone-7 (Vitamin K2), 1 CAP PO DAILY Methotrexate (Methotrexate), 20 MG PO WK Metoclopramide Hcl (Metoclopramide Hcl), 5 MG PO TID Ocuvite Preservision (Ocuvite Preservision), 1 TAB PO DAILY Omeprazole (Prilosec), 20 MG PO DAILY Potassium Ext Rel (Klor-Con), 20 MEQ PO DAILY Ranitidine (Zantac), 300 MG PO HS Trazodone HCl (Trazodone HCl), 200 MG PO HS Scheduled PRN Hydrocodone/Acetaminophen 5MG/325MG ([place] 5MG/325MG), 1 TAB PO Q4H PRN for Pain Sennosides-Docusate Sodium (Stool Softener Plus Laxat), 1 TAB PO DAILY PRN for Constipation Review of Systems See HPI for pertinent positives & negatives. All other systems reviewed and were otherwise negative Physical Exam Vital Signs Date Time Temp Pulse Resp B/P (MAP) Pulse Ox O2 Delivery O2 Flow Rate FiO2 10/28/17 16:47 36.6 81 18 143/68 96 Room Air General Appearance: WD/WN, no apparent distress Head: normocephalic, atraumatic Eyes: normal inspection, PERRL, EOMI, sclerae normal ENT: hearing grossly normal, pharynx normal, + pertinent finding (mucous membranes moist) Neck: supple, no JVD, trachea midline Respiratory/Chest: lungs clear, normal breath sounds, no respiratory distress Cardiovascular: regular rate, rhythm, no murmur, normal peripheral pulses Abdomen/GI: normal bowel sounds, non tender, soft Extremities/Musculoskelatal: normal inspection, no calf tenderness, normal capillary refill, no pedal edema, non-tender Neurologic/Psych: alert, normal mood/affect, oriented x 3 Skin: normal color, warm/dry Diagnostics Laboratory Results Results Past 24 Hours Test 10/28/17 17:42 10/28/17 19:14 Range/Units White Blood Count 9.74 4.8-10.8 K/uL Red Blood Count 3.26 4.2-5.4 M/uL Hemoglobin 10.5 12.0-16.0 g/dL Hematocrit 30.7 37-47 % Mean Corpuscular Volume 94.2 80-100 fL Mean Corpuscular Hemoglobin 32.2 25-34 pg Mean Corpuscular Hemoglobin Concent 34.2 32-36 g/dl RDW Standard Deviation 50.8 36.4-46.3 fL RDW Coefficient of Variation 15.1 11.5-14.5 % Platelet Count 255 130-400 K/uL Mean Platelet Volume 8.2 7.4-10.4 fL Prothrombin Time 9.8 9.0-12.0 SECONDS Prothromb Time International Ratio 0.9 0.9-1.1 Sodium Level 124 136-145 mmol/L Potassium Level 4.4 3.5-5.1 mmol/L Chloride Level 94 98-107 mmol/L Carbon Dioxide Level 22 21-32 mmol/L Anion Gap 8.0 3-11 mmol/L Blood Urea Nitrogen 15 7-18 mg/dl Creatinine 0.72 0.60-1.20 mg/dl Est Creatinine Clear Calc Drug Dose 86.7 ml/min Estimated GFR () 101.1 Estimated GFR (Non- 87.3 BUN/Creatinine Ratio 21.2 10-20 Random Glucose 89 70-99 mg/dl Osmolality 265 280-300 mOsm/kg Calcium Level 8.7 8.5-10.1 mg/dl Magnesium Level 1.8 1.8-2.4 mg/dl Urine Osmolality 188 500-800 mOms/kg Impression Assessment and Plan Hyponatremia Pt with hyponatremia past couple weeks (Na: 126-123). has had increased oral fluid intake secondary to boredom. has TSH WNL out pt. Suspect cause pt too much fluid intake. -urine and serum osmolality -fluid restriction 1200ml -repeat electrolytes and monitor -nephrology consult Polymyositis Follows with Dr Garcia -continue methotrexate -continue hydrocodone prn pain Anxiety/Depression pt follows with psychiatrist. stable -continue Wellbutrin, BuSpar, trazodone HS HTN stable -continue lisinopril Chronic Anemia Hgb: 10.5 (baseline ~11). No active bleeding -continue iron, folic acid Hypothyroidism -continue levothyroxine GERD -continue ranitidine, PPI, Reglan DVT Prophylaxis -lovenox Disposition admit med/surg DNR as per discussion with pt Follows with Dr Rae Dominguez for routine care Pt was seen with Dr Taveras. See addendum ATTENDING ADDENDUM ; pt seen and examined, care co ordinated with Niharika Knox PA-C 67 yo F sent as a direct admit by nephrology for Hyponatremia pt denies of any symptom of dizzy spell ,confusion , headache or visual problem Na 123 pt reports of increased fluid intake -Drinks ~10 cups water every day ordered for fluid restriction follow BMP Nephrology consult requested please refer to Niharika Knox PA-C documentation for further discussion of other issues Agatha Taveras MD Level of Care Med/Surg Advanced Directives Existing Living Will: Yes Existing Power of Marine Rigger: Yes Resuscitation Status DO NOT RESUSCITATE VTE Prophylaxis VTE Risk Assessment Done? Y/N: Yes Risk Level: Moderate Given or contraindicated: Enoxaparin (Lovenox)SQ Additional Copies To Rae Dominguez M.D.
[2017-10-28] MEDS: FLUTICASONE PROPIONATE NA SPR 16 GM BTL NAE SCH (23:51)
[2017-10-29 00:19] LABS: CALCIUM 8.2 mg/dl (8.5-10.1); CREATININE 1.08 mg/dl (0.60-1.20); POTASSIUM 4.5 mmol/L (3.5-5.1)
[2017-10-29 00:24] VITALS: BP 105/63; PULSE 74; TEMP 36.9; O2SAT 96
[2017-10-29] MEDS: LEVOTHYROXINE 75 MCG TAB PO SCH (05:56)
[2017-10-29 07:05] LABS: HEMATOCRIT 29.1 % (37-47); HEMOGLOBIN 9.7 g/dL (12.0-16.0); MEAN CELL VOLUME 95.7 fL (80-100); MEAN CORPUSCULAR HEMOGLOBIN 31.9 pg (25-34); MEAN CORPUSCULAR HGB CONC 33.3 g/dl (32-36); PLATELET COUNT 240 K/uL (130-400); RED CELL DISTRIBUTION WIDTH CV 15.5 % (11.5-14.5); RED CELL DISTRIBUTION WIDTH SD 53.4 fL (36.4-46.3)
[2017-10-29 07:09] VITALS: BP 142/82; PULSE 72; TEMP 36.4; O2SAT 93
[2017-10-29 07:31] LABS: CALCIUM 8.1 mg/dl (8.5-10.1); CREATININE 0.84 mg/dl (0.60-1.20); POTASSIUM 4.3 mmol/L (3.5-5.1)
[2017-10-29] MEDS: ASPIRIN 81 MG ECTAB PO SCH (07:48)
[2017-10-29] MEDS: PANTOprazole SOD 40 MG TAB PO SCH (07:48)
[2017-10-29] MEDS: CYANOCOBALAMIN 500 MCG TAB (VIT B-12) PO SCH (07:48)
[2017-10-29] MEDS: FERROUS SULFATE 325 MG TAB PO SCH (07:49)
[2017-10-29] MEDS: CEROVITE ADV FORMULA TAB PO SCH (07:49)
[2017-10-29] MEDS: CYPROHEPTADINE HCL 4 MG TAB PO SCH (07:49)
[2017-10-29] MEDS: BuPROPion SR 150 MG TABCR PO SCH (07:50)
[2017-10-29] MEDS: LISINOPRIL 10 MG TAB PO SCH (07:50)
[2017-10-29] MEDS: POTASSIUM CHLORIDE 20 MEQ TABCR PO SCH (07:50)
[2017-10-29] MEDS: FLUTICASONE PROPIONATE NA SPR 16 GM BTL NAE SCH ×2 (07:51→09:00)
[2017-10-29] MEDS: METOCLOPRAMIDE HCL 5 MG TAB PO SCH ×3 (07:51→20:52)
[2017-10-29] MEDS ORDERED: [UNRECOGNIZED DRUG - OTHER] PO SCH (09:00)
[2017-10-29] MEDS: SODIUM CHLORIDE 0.9% 1000ML 1,000 ML IV SCH (10:04)
--- NOTE | 2017-10-29 10:09 | NEPHROLOGY CONSULTATION ---
DATE OF CONSULTATION: 10/29/2017 ATTENDING OF RECORD: Dr. Woods. REASON FOR CONSULTATION: Hyponatremia. HISTORY OF PRESENT ILLNESS: This is a 67-year-old female who I saw in my outpatient clinic yesterday for the first time for hyponatremia. The patient does have underlying hypertension diagnosed in her 30s. No diabetes. No tobacco. She does have a history of osteoarthritis and polymyositis and follows with rheumatology, Dr. Moyer, who evaluated the patient yesterday as well. She has been on methotrexate since the summer. She takes Aleve every couple weeks. She does also have a history of anxiety and depression and is on Wellbutrin, trazodone, BuSpar as well as cyproheptadine. The patient drinks more water recently, which she states out of boredom. The patient's sodium levels were found to be low and despite restricting fluids, sodium levels continue to drop. Sodium level was down to 123 in the setting of restricting the fluids even further and decided to directly admit the patient to the hospital. The patient's sodium level was 124 last night and is up to 125 this morning. The patient is currently on a fluid restriction of 1200 mL. The patient feels that she is restricting her fluids much more here in the hospital than she had been. PAST MEDICAL HISTORY: Hypertension, osteoarthritis, polymyositis, anxiety, and depression. PAST SURGICAL HISTORY: Arthroscopy of the knee, cholecystectomy, and nasal septal repair. FAMILY HISTORY: Significant for diabetes and colon cancer. REVIEW OF SYSTEMS: Positive fatigue. No change in weight. Positive slight headaches. No shortness of breath. No chest pain. No edema. No nausea or vomiting. Positive intermittent abdominal pain. No nocturia. She does have arthritis in the hands and low back. No seizures. No tremors. No rash. No itching. All other review of systems otherwise negative. SOCIAL HISTORY: The patient is . No smoking. Rarely uses alcohol. No drugs. CURRENT MEDICATIONS: Methotrexate 20 mg weekly, aspirin 81 mg a day, Wellbutrin 150 mg daily, cyproheptadine 4 mg daily, iron sulfate 325 daily, Flonase 2 sprays daily, folic acid 1 mg daily, lisinopril 10 mg daily, multivitamin daily, potassium 20 mEq daily, Protonix 40 mg daily, vitamin B12 of 1000 mcg daily, Synthroid 75 mcg daily, Lovenox 40 mg at night, Reglan 5 mg p.o. t.i.d., trazodone 200 mg at night, BuSpar 20 mg p.o. t.i.d., and Zantac 300 mg at night. PHYSICAL EXAMINATION: VITAL SIGNS: Temperature 36.4, pulse 72, respiratory rate 18, blood pressure 142/82, and satting 93% on room air. GENERAL: Awake, alert, and oriented x3. EYES: No scleral icterus. ENT: Moist mucous membranes. NECK: Supple. PULMONARY: Clear to auscultation. CARDIAC: Regular rate and rhythm. ABDOMEN: Bowel sounds positive. Soft and nontender. EXTREMITIES: No clubbing, cyanosis or edema. NEUROLOGICALLY: Nonfocal. DERMATOLOGIC: No rash or ulcers noted. LABORATORY DATA: Sodium level is 125, potassium 4.3, chloride is 95, bicarbonate is 24, BUN 17, creatinine 0.84, glucose 95, and calcium is 8.1. Urine osmolality is 188. INR is 0.9. Hemoglobin level is 9.7. IMPRESSION AND PLAN: Hyponatremia. For now, doing a 1200-mL fluid restriction trying to raise the sodium levels up into the 130s. The patient is asymptomatic with no neurologic deficits and no role for 3% normal saline. Given the fact that the urine osmolality is 188, we would like to add normal saline at 50 mL an hour to see if we can help continue to improve the sodium levels in the setting of fluid restriction. I would continue fluid restriction as an outpatient and recheck sodium levels as an outpatient once the sodium levels stabilized above 130 and stable for discharge. Thyroid levels have been checked recently and were good. The patient is up to date with cancer screenings and was not on any medications provoking the hyponatremia. I feel that she may have an element of syndrome of inappropriate antidiuretic hormone of unclear etiology at baseline and has worsened in the setting of increased fluid intake. I appreciate the consultation. JEROD
[2017-10-29] MEDS: HYDROCODONE/ACETAMIN 5/325MG TAB PO PRN ×2 (14:10→23:38)
[2017-10-29] MEDS ORDERED: ROPINIROLE HCL 1 MG TAB PO PRN (15:45)
--- NOTE | 2017-10-29 15:48 | Progress Note ---
Medicine Progress Note Date & Time of Visit: Oct 29, 2017 at 15:45. Subjective seen sitting up in bed, comfortable states she feels better than yesterday feels fine overall except for mild headache, improving denies other symptoms Objective Last 8 Hrs Date Time Temp Pulse Resp B/P (MAP) Pulse Ox O2 Delivery O2 Flow Rate FiO2 10/29/17 08:00 Room Air Physical Exam: General- oriented x 3, not in distress, speaks in sentences with no effort Head- atraumatic Eyes- PERRL, EOMI, anicteric ENT- oropharynx clear Neck- supple, no JVD, no adenopathy, no thyromegaly Lungs- clear breath sounds bilaterally Heart- regular rhythm; no murmur, normal rate Abdomen- normal bowel sounds, soft, nontender Extremities- no pretibial edema, no calf tenderness; peripheral pulses intact Neuro- alert, oriented x 3; no gross focal deficits Skin- warm & dry Laboratory Results: Last 24 Hours Test 10/28/17 17:42 10/28/17 19:14 10/28/17 23:30 10/29/17 06:50 White Blood Count 9.74 K/uL 7.90 K/uL Red Blood Count 3.26 M/uL 3.04 M/uL Hemoglobin 10.5 g/dL 9.7 g/dL Hematocrit 30.7 % 29.1 % Mean Corpuscular Volume 94.2 fL 95.7 fL Mean Corpuscular Hemoglobin 32.2 pg 31.9 pg Mean Corpuscular Hemoglobin Concent 34.2 g/dl 33.3 g/dl RDW Standard Deviation 50.8 fL 53.4 fL RDW Coefficient of Variation 15.1 % 15.5 % Platelet Count 255 K/uL 240 K/uL Mean Platelet Volume 8.2 fL 8.0 fL Prothrombin Time 9.8 SECONDS Prothromb Time International Ratio 0.9 Sodium Level 124 mmol/L 126 mmol/L 125 mmol/L Potassium Level 4.4 mmol/L 4.5 mmol/L 4.3 mmol/L Chloride Level 94 mmol/L 95 mmol/L 95 mmol/L Carbon Dioxide Level 22 mmol/L 24 mmol/L 24 mmol/L Anion Gap 8.0 mmol/L 7.0 mmol/L 6.0 mmol/L Blood Urea Nitrogen 15 mg/dl 16 mg/dl 17 mg/dl Creatinine 0.72 mg/dl 1.08 mg/dl 0.84 mg/dl Est Creatinine Clear Calc Drug Dose 86.7 ml/min 57.8 ml/min 74.3 ml/min Estimated GFR () 101.1 61.9 83.9 Estimated GFR (Non- 87.3 53.5 72.4 BUN/Creatinine Ratio 21.2 15.2 19.9 Random Glucose 89 mg/dl 115 mg/dl 95 mg/dl Osmolality 265 mOsm/kg Calcium Level 8.7 mg/dl 8.2 mg/dl 8.1 mg/dl Magnesium Level 1.8 mg/dl Urine Osmolality 188 mOms/kg Assessment & Plan Hyponatremia Pt with hyponatremia past couple weeks (Na: 126-123). has had increased oral fluid intake secondary to boredom. has TSH WNL out pt. Suspect cause pt too much fluid intake. -- likely from Polydipsia, possible SIADH Fluid restriction, trial of NSS -- repeat Na in Am -- Dr. Bustamante on board Polymyositis Follows with Dr Garcia -continue methotrexate -continue hydrocodone prn pain Anxiety/Depression pt follows with psychiatrist. stable -continue Wellbutrin, BuSpar, trazodone HS HTN stable -continue lisinopril Chronic Anemia Hgb: 10.5 (baseline ~11). No active bleeding -continue iron, folic acid Hypothyroidism -continue levothyroxine GERD -continue ranitidine, PPI, Reglan DVT Prophylaxis -lovenox Disposition anticipate d/c home when medically stable Current Inpatient Medications: Current Inpatient Medications Medications (Trade) Dose Ordered Sig/Michel Route Start Time Stop Time Status Last Admin Dose Admin Enoxaparin Sodium (Lovenox Inj) 40 mg QPM SQ 10/28/17 21:00 11/27/17 20:59 10/28/17 20:48 40 MG Acetaminophen (Tylenol Tab) 650 mg Q4H PRN PO 10/28/17 17:30 11/27/17 17:29 Polyethylene (Miralax Powder Packet) 17 gm DAILY PRN PO 10/28/17 17:30 11/27/17 17:29 Ondansetron HCl (Zofran Inj) 4 mg Q6H PRN IV 10/28/17 17:30 11/27/17 17:29 Aspirin (Ecotrin Tab) 81 mg DAILY PO 10/29/17 09:00 3/9/18 08:59 10/29/17 07:48 81 MG Bupropion HCl (Wellbutrin-Sr Tab) 150 mg DAILY PO 10/29/17 09:00 11/28/17 08:59 10/29/17 07:50 150 MG Cyproheptadine HCl (Periactin Tab) 4 mg DAILY PO 10/29/17 09:00 11/28/17 08:59 10/29/17 07:49 4 MG Ferrous Sulfate (Feosol Tab) 325 mg DAILY PO 10/29/17 09:00 11/28/17 08:59 10/29/17 07:49 325 MG Fluticasone Propionate (Flonase Nasal [place]) 2 sprays DAILY JOSE LUIS 10/29/17 09:00 11/28/17 08:59 10/28/17 23:51 2 SPRAYS Folic Acid (Folvite Tab) 1 mg DAILY PO 10/29/17 09:00 11/28/17 08:59 10/29/17 07:49 1 MG Acetaminophen/ Hydrocodone Bitart ([place] 5/325 Tab) 1 tab Q4H PRN PO 10/28/17 18:45 11/11/17 18:44 10/29/17 14:10 1 TAB Levothyroxine Sodium (Synthroid Tab) 75 mcg DAILYBB PO 10/29/17 06:30 11/28/17 06:29 10/29/17 05:56 75 MCG Lisinopril (Zestril Tab) 10 mg DAILY PO 10/29/17 09:00 11/28/17 08:59 10/29/17 07:50 10 MG Metoclopramide HCl (Reglan Tab) 5 mg TID PO 10/28/17 21:00 11/27/17 20:59 10/29/17 14:04 5 MG Multivitamins/ Minerals (Multivitamin W/ Minerals Tab) 1 tab DAILY PO 10/29/17 09:00 11/28/17 08:59 10/29/17 07:49 1 TAB Potassium Chloride (Klor-Con Tab) 20 meq DAILY PO 10/29/17 09:00 11/28/17 08:59 10/29/17 07:50 20 MEQ Senna/Docusate Sodium (Senokot S Tab) 1 tab DAILY PRN PO 10/28/17 18:45 11/27/17 18:44 Trazodone HCl (Desyrel Tab) 200 mg HS PO 10/28/17 21:00 11/27/17 20:59 10/28/17 20:47 200 MG Buspirone HCl (Buspar Tab) 20 mg TID PO 10/28/17 21:00 11/27/17 20:59 10/29/17 14:05 20 MG Pantoprazole Sodium (Protonix Tab) 40 mg DAILY PO 10/29/17 09:00 11/28/17 08:59 10/29/17 07:48 40 MG Ranitidine HCl (zANTac TAB) 300 mg HS PO 10/28/17 21:00 11/27/17 20:59 10/28/17 20:50 300 MG Methotrexate (Methotrexate Tab) 20 mg Fr@0900 PO 10/31/17 09:00 11/30/17 08:59 Cyanocobalamin (Vitamin B-12 Tab) 1,000 mcg DAILY PO 10/29/17 09:00 11/28/17 08:59 10/29/17 07:48 1,000 MCG Sodium Chloride 1,000 ml @ 50 mls/hr Q20H IV 10/29/17 09:30 11/28/17 09:29 10/29/17 10:04 50 MLS/HR
[2017-10-29 15:50] VITALS: BP 126/74; PULSE 64; TEMP 36.3; O2SAT 95
[2017-10-29] MEDS: TRAZODONE HCL 100 MG TAB PO SCH (20:52)
[2017-10-29] MEDS: RANITIDINE HCL 150 MG TAB PO SCH (20:52)
[2017-10-29] MEDS: ENOXAPARIN 40 MG/0.4 ML SYR SQ SCH (20:53)
[2017-10-29 22:30] VITALS: BP 117/81; PULSE 63; TEMP 36.5; O2SAT 95
[2017-10-30] MEDS: FLUTICASONE PROPIONATE NA SPR 16 GM BTL NAE SCH ×2 (01:25→08:11)
[2017-10-30] MEDS: SODIUM CHLORIDE 0.9% 1000ML 1,000 ML IV SCH (05:40)
[2017-10-30] MEDS: LEVOTHYROXINE 75 MCG TAB PO SCH (05:46)
[2017-10-30 07:28] VITALS: BP 129/79; PULSE 57; TEMP 36.4; O2SAT 95
[2017-10-30] MEDS: CYANOCOBALAMIN 500 MCG TAB (VIT B-12) PO SCH (08:05)
[2017-10-30] MEDS: ASPIRIN 81 MG ECTAB PO SCH (08:05)
[2017-10-30] MEDS: METOCLOPRAMIDE HCL 5 MG TAB PO SCH ×2 (08:06→14:07)
[2017-10-30] MEDS: FERROUS SULFATE 325 MG TAB PO SCH (08:06)
[2017-10-30] MEDS: CYPROHEPTADINE HCL 4 MG TAB PO SCH (08:07)
[2017-10-30] MEDS: CEROVITE ADV FORMULA TAB PO SCH (08:07)
[2017-10-30] MEDS: BuPROPion SR 150 MG TABCR PO SCH (08:09)
[2017-10-30] MEDS: PANTOprazole SOD 40 MG TAB PO SCH (08:09)
[2017-10-30] MEDS: LISINOPRIL 10 MG TAB PO SCH (08:10)
[2017-10-30] MEDS: POTASSIUM CHLORIDE 20 MEQ TABCR PO SCH (08:12)
[2017-10-30 08:13] LABS: ALT/SGPT 24 U/L (12-78); BLOOD UREA NITROGEN 19 mg/dl (7-18); CALCIUM 8.6 mg/dl (8.5-10.1); CARBON DIOXIDE 24 mmol/L (21-32); CREATININE 0.85 mg/dl (0.60-1.20); GLUCOSE 80 mg/dl (70-99); POTASSIUM 4.3 mmol/L (3.5-5.1); SODIUM 131 mmol/L (136-145)
[2017-10-30 08:16] LABS: ALKALINE PHOSPHATASE 49 U/L (45-117); AST/SGOT 17 U/L (15-37); TOTAL PROTEIN 6.6 gm/dl (6.4-8.2)
[2017-10-30] MEDS: HYDROCODONE/ACETAMIN 5/325MG TAB PO PRN (11:25)
--- NOTE | 2017-10-30 14:32 | Progress Note ---
Medicine Progress Note Date & Time of Visit: Oct 30, 2017 at 14:28. Subjective patient seen resting in bed, comfortable alert, oriented in good spirits denies dizziness, nausea, abdominal pain no other symptoms states she is ready and would like to be discharged today Objective Last 8 Hrs Date Time Temp Pulse Resp B/P (MAP) Pulse Ox O2 Delivery O2 Flow Rate FiO2 10/30/17 07:28 36.4 57 18 129/79 (96) 95 Room Air 10/30/17 07:26 Room Air Physical Exam: General- oriented x 3, not in distress, speaks in sentences with no effort Eyes- anicteric Neck- supple, no JVD Lungs- clear breath sounds bilaterally, no rales/wheezes Heart- regular rhythm; no murmur, normal rate Abdomen- normal bowel sounds, soft, nontender Extremities- no pretibial edema, no calf tenderness Neuro- alert, oriented x 3; no gross focal deficits Skin- warm & dry Laboratory Results: Last 24 Hours Test 10/30/17 07:08 Sodium Level 131 mmol/L Potassium Level 4.3 mmol/L Chloride Level 100 mmol/L Carbon Dioxide Level 24 mmol/L Anion Gap 7.0 mmol/L Blood Urea Nitrogen 19 mg/dl Creatinine 0.85 mg/dl Est Creatinine Clear Calc Drug Dose 73.4 ml/min Estimated GFR () 82.8 Estimated GFR (Non- 71.4 BUN/Creatinine Ratio 22.1 Random Glucose 80 mg/dl Calcium Level 8.6 mg/dl Total Bilirubin 0.2 mg/dl Direct Bilirubin < 0.1 mg/dl Aspartate Amino Transf (AST/SGOT) 17 U/L Alanine Aminotransferase (ALT/SGPT) 24 U/L Alkaline Phosphatase 49 U/L Total Creatine Kinase 382 U/L Total Protein 6.6 gm/dl Albumin 3.0 gm/dl Assessment & Plan Hyponatremia - Pt with hyponatremia past couple weeks (Na: 126-123). has had increased oral fluid intake -- likely from Polydipsia, possible SIADH placed on Fluid restriction, IV NSS -- Na improved from 125 to 131 -- Dr. Bustamante consulted -- recommend to continue fluid restriction 1500ml/day repeat Na on Friday c/o PCP Polymyositis Follows with Dr Garcia -continue methotrexate -continue hydrocodone prn pain Anxiety/Depression pt follows with psychiatrist. stable -continue Wellbutrin, BuSpar, trazodone HS HTN stable -continue lisinopril Chronic Anemia Hgb: 10.5 (baseline ~11). No active bleeding -continue iron, folic acid Hypothyroidism -continue levothyroxine GERD -continue ranitidine, PPI, Reglan DVT Prophylaxis -lovenox Disposition d/c home ff up with PCP in 3-5 days Current Inpatient Medications: Current Inpatient Medications Medications (Trade) Dose Ordered Sig/Michel Route Start Time Stop Time Status Last Admin Dose Admin Enoxaparin Sodium (Lovenox Inj) 40 mg QPM SQ 10/28/17 21:00 11/27/17 20:59 10/29/17 20:53 40 MG Acetaminophen (Tylenol Tab) 650 mg Q4H PRN PO 10/28/17 17:30 11/27/17 17:29 Polyethylene (Miralax Powder Packet) 17 gm DAILY PRN PO 10/28/17 17:30 11/27/17 17:29 10/29/17 23:37 17 GM Ondansetron HCl (Zofran Inj) 4 mg Q6H PRN IV 10/28/17 17:30 11/27/17 17:29 Aspirin (Ecotrin Tab) 81 mg DAILY PO 10/29/17 09:00 11/28/17 08:59 10/30/17 08:05 81 MG Bupropion HCl (Wellbutrin-Sr Tab) 150 mg DAILY PO 10/29/17 09:00 11/28/17 08:59 10/30/17 08:09 150 MG Cyproheptadine HCl (Periactin Tab) 4 mg DAILY PO 10/29/17 09:00 11/28/17 08:59 10/30/17 08:07 4 MG Ferrous Sulfate (Feosol Tab) 325 mg DAILY PO 10/29/17 09:00 11/28/17 08:59 10/30/17 08:06 325 MG Fluticasone Propionate (Flonase Nasal [place]) 2 sprays DAILY JOSE LUIS 10/29/17 09:00 11/28/17 08:59 10/30/17 01:25 2 SPRAYS Folic Acid (Folvite Tab) 1 mg DAILY PO 10/29/17 09:00 11/28/17 08:59 10/30/17 08:09 1 MG Acetaminophen/ Hydrocodone Bitart ([place] 5/325 Tab) 1 tab Q4H PRN PO 10/28/17 18:45 11/11/17 18:44 10/30/17 11:25 1 TAB Levothyroxine Sodium (Synthroid Tab) 75 mcg DAILYBB PO 10/29/17 06:30 11/28/17 06:29 10/30/17 05:46 75 MCG Lisinopril (Zestril Tab) 10 mg DAILY PO 10/29/17 09:00 11/28/17 08:59 10/30/17 08:10 10 MG Metoclopramide HCl (Reglan Tab) 5 mg TID PO 10/28/17 21:00 11/27/17 20:59 10/30/17 14:07 5 MG Multivitamins/ Minerals (Multivitamin W/ Minerals Tab) 1 tab DAILY PO 10/29/17 09:00 11/28/17 08:59 10/30/17 08:07 1 TAB Potassium Chloride (Klor-Con Tab) 20 meq DAILY PO 10/29/17 09:00 11/28/17 08:59 10/30/17 08:12 20 MEQ Senna/Docusate Sodium (Senokot S Tab) 1 tab DAILY PRN PO 10/28/17 18:45 11/27/17 18:44 10/29/17 20:51 1 TAB Trazodone HCl (Desyrel Tab) 200 mg HS PO 10/28/17 21:00 11/27/17 20:59 10/29/17 20:52 200 MG Buspirone HCl (Buspar Tab) 20 mg TID PO 10/28/17 21:00 11/27/17 20:59 10/30/17 14:06 20 MG Pantoprazole Sodium (Protonix Tab) 40 mg DAILY PO 10/29/17 09:00 11/28/17 08:59 10/30/17 08:09 40 MG Ranitidine HCl (zANTac TAB) 300 mg HS PO 10/28/17 21:00 11/27/17 20:59 10/29/17 20:52 300 MG Methotrexate (Methotrexate Tab) 20 mg Fr@0900 PO 10/31/17 09:00 11/30/17 08:59 Cyanocobalamin (Vitamin B-12 Tab) 1,000 mcg DAILY PO 10/29/17 09:00 11/28/17 08:59 10/30/17 08:05 1,000 MCG Sodium Chloride 1,000 ml @ 50 mls/hr Q20H IV 10/29/17 09:30 11/28/17 09:29 10/30/17 05:40 50 MLS/HR Ropinirole HCl (Requip Tab) 0.5 mg HS PRN PO 10/29/17 15:45 11/28/17 15:44 10/30/17 00:09 0.5 MG
--- NOTE | 2017-10-30 14:41 | Discharge Instructions ---
Discharge Instructions Date of Service Oct 30, 2017. Admission Reason for Admission: Hyponatremia Discharge Discharge Diagnosis / Problem: HYPONATREMIA Discharge Goals Goal(s): Diagnostic testing, Therapeutic intervention Activity Recommendations Activity Limitations: resume your previous activity Driving or Machine Use: NO DRIVING UNTIL SEEN BY PRIMARY CARE PHYSICIAN . Instructions / Follow-Up Instructions / Follow-Up RESTRICT YOUR TOTAL FLUID INTAKE TO NOT MORE THAN 1,500ML / DAY. CALL PRIMARY CARE PHYSICIAN OR RETURN TO THE ER IMMEDIATELY IF WITH WORSENING OF SYMPTOMS, WEAKNESS, DIZZINESS, CONFUSION, DROWSINESS. FOLLOW UP WITH PRIMARY CARE PHYSICIAN DR. PAREKH (ASSOCIATE OF DR. VALENTIN PETERSON) ON Friday11/03/17 AT 10:0AM. Current Hospital Diet Patient's current hospital diet: AHA Diet (Heart Healthy) Discharge Diet Recommended Diet: AHA Diet (Heart Healthy) Fluid Restriction: 1500 ml (6 cups) Pending Studies Studies pending at discharge: yes List of pending studies: REPEAT SODIUM LEVEL ON Friday11/03/17 C/O PRIMARY CARE PHYSICIAN Medical Emergencies . Who to Call and When: Medical Emergencies: If at any time you feel your situation is an emergency, please call 911 immediately. . Non-Emergent Contact Non-Emergency issues call your: Primary Care Provider Call Non-Emergent contact if: you have a fever, you have any medication questions . . "Provider Documentation" section prepared by García Woods. . VTE Core Measure Inpt VTE Proph given/why not?: Enoxaparin (Lovenox)SQ
--- NOTE | 2017-10-30 14:42 | Discharge Summary ---
Discharge Summary Date of Service Oct 30, 2017. Discharge Summary Admission Date: Oct 28, 2017 at 17:39 Discharge Date: Oct 30, 2017 Discharge Disposition: Home Principal Diagnosis: Hyponatremia Secondary Diagnoses/Problems: Please refer to hospital course below. Consultations: Nephrology Dr. Bustamante Pending Studies/Follow-Up: Please refer to hospital course below. Medication Reconciliation Continued Medications: Aspirin (Aspirin Ec) 81 Mg Tab 81 MG PO DAILY Bupropion Hcl (Wellbutrin Sr) 150 Mg Tab 150 MG PO DAILY, TAB Buspirone Hcl (Buspirone Hcl) 10 Mg Tab 20 MG PO TID, TAB Cyanocobalamin (Vitamin B12) 1,000 Mcg Tab 1000 MCG PO DAILY Cyproheptadine HCl (Cyproheptadine HCl) 4 Mg Tab 4 MG PO DAILY Ferrous Sulfate (Ferrous Sulfate) 325 Mg Tab 1 TAB PO DAILY Fluticasone Propionate (Nasal) (Flonase Allergy Relief) 50 Mcg/Act Spr 2 SPRAYS JOSE LUIS DAILY Folic Acid (Folvite) 1 Mg Tab 1 MG PO DAILY, TAB Hydrocodone/Acetaminophen 5MG/325MG ([place] 5MG/325MG) Tab 1 TAB PO Q4H PRN for Pain Levothyroxine Sodium (Levothyroxine Sodium) 75 Mcg Tab 75 MCG PO DAILY, #30 Lisinopril (Lisinopril) 10 Mg Tab 10 MG PO DAILY, #30 Menaquinone-7 (Vitamin K2) 100 Mcg Cap 1 CAP PO DAILY Methotrexate (Methotrexate) 2.5 Mg Tab 20 MG PO WK TAKES ON FRIDAY Metoclopramide Hcl (Metoclopramide Hcl) 5 Mg Tab 5 MG PO TID 30 minutes before meals Ocuvite Preservision (Ocuvite Preservision) 1 Tab Tab 1 TAB PO DAILY, TAB Omeprazole (Prilosec) 20 Mg Capcr 20 MG PO DAILY Potassium Ext Rel (Klor-Con) 20 Meq Tabcr 20 MEQ PO DAILY, #30 Ranitidine (Zantac) 300 Mg Tab 300 MG PO HS, TAB Sennosides-Docusate Sodium (Stool Softener Plus Laxat) 1 Tab Tab 1 TAB PO DAILY PRN for Constipation Trazodone HCl (Trazodone HCl) 100 Mg Tab 200 MG PO HS Admission Information HPI (per Admitting provider): Pt is 67 y/o F with PMH HTN, polymyositis on methotrexate, OA, anxiety, depression, hyperlipidemia seen as direct admission for hyponatremia. Pt been seen by PCP and seen by Dr Bustamante today for hyponatremia. on 10/16/17 Na was 125, on 10/23/17 Na was 125, today was 123 out pt. Pt admits has been drinking approx 10 cups water, juice, tea and just started drinking this much over past couple of weeks. She states "I'm just bored so I go get something to drink". Denies excessive thirst. She states tried to cut back over past several days, but she is unsure exactly how much she is drinking, maybe 6 cups daily? Reports some intermittent frontal DUKE past couple of weeks, resolves with aleve. Follows with Dr Garcia for polymyositis. Uses hydrocodone daily and aleve prn. She reports chronic leg weakness with walking and chronic fatigue. Denies worsening. uses a cane sometimes to assist in walking. Pt lives in basement apartment of [facility] and states is able to do her ADLs. Denies fever/chills, diaphoresis, N/V/D/C, dizziness, syncope, vision changes, neck pain, CP, SOB, orthopnea, palpitations, cough, sore throat, choking, otalgia, rhinorrhea, abdominal pain, paresthesias, extremity edema, rashes, urinary symptoms, muscle cramps. Physical Exam (per Admitting): General Appearance: WD/WN, no apparent distress Head: normocephalic, atraumatic Eyes: normal inspection, PERRL, EOMI, sclerae normal ENT: hearing grossly normal, pharynx normal, + pertinent finding (mucous membranes moist) Neck: supple, no JVD, trachea midline Respiratory/Chest: lungs clear, normal breath sounds, no respiratory distress Cardiovascular: regular rate, rhythm, no murmur, normal peripheral pulses Abdomen/GI: normal bowel sounds, non tender, soft Extremities/Musculoskelatal: normal inspection, no calf tenderness, normal capillary refill, no pedal edema, non-tender Neurologic/Psych: alert, normal mood/affect, oriented x 3 Skin: normal color, warm/dry Hospital Course Hyponatremia - Pt with hyponatremia past couple weeks (Na: 126-123). has had increased oral fluid intake -- likely from Polydipsia, possible SIADH placed on Fluid restriction, IV NSS Nephro consulted Dr. Bustamante -- Na improved from 125 to 131 -- recommend to continue fluid restriction 1500ml/day repeat Na on Friday11/03/17 c/o PCP Polymyositis Follows with Dr Garcia -continue methotrexate -continue hydrocodone prn pain Anxiety/Depression pt follows with psychiatrist. stable -continue Wellbutrin, BuSpar, trazodone HS HTN stable -continue lisinopril Chronic Anemia Hgb: 10.5 (baseline ~11). No active bleeding -continue iron, folic acid Hypothyroidism -continue levothyroxine GERD -continue ranitidine, PPI, Reglan Disposition d/c home ff up with PCP in 3-5 days Total time spent on discharge = This includes examination of the patient, discharge planning, medication reconciliation, and communication with other providers. Discharge Instructions Discharge Instructions Date of Service Oct 30, 2017. Admission Reason for Admission: Hyponatremia Discharge Discharge Diagnosis / Problem: HYPONATREMIA Discharge Goals Goal(s): Diagnostic testing, Therapeutic intervention Activity Recommendations Activity Limitations: resume your previous activity Driving or Machine Use: NO DRIVING UNTIL SEEN BY PRIMARY CARE PHYSICIAN . Instructions / Follow-Up Instructions / Follow-Up RESTRICT YOUR TOTAL FLUID INTAKE TO NOT MORE THAN 1,500ML / DAY. CALL PRIMARY CARE PHYSICIAN OR RETURN TO THE ER IMMEDIATELY IF WITH WORSENING OF SYMPTOMS, WEAKNESS, DIZZINESS, CONFUSION, DROWSINESS. FOLLOW UP WITH PRIMARY CARE PHYSICIAN DR. PAREKH (ASSOCIATE OF DR. VALENTIN PETERSON) ON Friday11/03/17 AT 10:0AM. Current Hospital Diet Patient's current hospital diet: AHA Diet (Heart Healthy) Discharge Diet Recommended Diet: AHA Diet (Heart Healthy) Fluid Restriction: 1500 ml (6 cups) Pending Studies Studies pending at discharge: yes List of pending studies: REPEAT SODIUM LEVEL ON Friday11/03/17 C/O PRIMARY CARE PHYSICIAN
[2017-10-30 15:13] VITALS: BP 129/79; PULSE 57; TEMP 36.4; O2SAT 95
[2017-10-31] MEDS ORDERED: METHOTREXATE 2.5 MG TAB PO SCH (09:00)
== END 2017-10-30 16:02 | disposition home health service (06) | DRG 641 ==
LOC: C.MS2W 16:31 → OBSVTOIN 17:39
PROVIDERS: ADMIT Hospitalist; ATTEND Internal Medicine
DX: E87.1 Hypo-osmolality and hyponatremia (principal); M33.20 Polymyositis, organ involvement unspecified; F32.9 Major depressive disorder, single episode, unspecified; F41.9 Anxiety disorder, unspecified; I10 Essential (primary) hypertension; D64.9 Anemia, unspecified; E03.9 Hypothyroidism, unspecified; K21.9 Gastro-esophageal reflux disease without esophagitis; Z66 Do not resuscitate; Z79.82 Long term (current) use of aspirin; Z79.899 Other long term (current) drug therapy; Z88.5 Allergy status to narcotic agent

== ENCOUNTER 2022-10-04 07:00 | Observation (INO) ==
--- NOTE | 2022-08-19 13:57 | PAT Medication Instructions ---
Medication Instructions Date of Service August 19, 2022 Home Medications bupropion HCl 150 mg 24 hr tablet, extended release (Wellbutrin XL) 150 mg PO QAM buspirone 10 mg tablet 10 mg PO TID calcium carbonate 600 mg calcium (1,500 mg) tablet (Calcium) 600 mg PO BID cholecalciferol (vitamin D3) 125 mcg (5,000 unit) tablet (Vitamin D3) 5,000 unit PO QAM cyproheptadine 4 mg tablet 8 mg PO HS docusate sodium 100 mg capsule 300 mg PO HS ferrous sulfate 325 mg (65 mg iron) tablet 325 mg PO Q2D fluticasone propionate 50 mcg/actuation nasal spray,suspension (Flonase Allergy Relief) 2 spray intranasal HS folic acid 1 mg tablet 1 mg PO QAM magnesium 250 mg tablet 250 mg PO QAM methotrexate (PF) 17.5 mg/0.35 mL subcutaneous auto-injector 17.5 mg subcut Q7D omeprazole 20 mg capsule,delayed release 20 mg PO BID rosuvastatin 5 mg tablet (Crestor) 5 mg PO HS thiamine HCl (vitamin B1) 100 mg tablet (Vitamin B-1) 100 mg PO QAM vit C,E,zinc,[id number] 250 mg-lutein 5 mg-zeaxanthin 1 mg capsule (Ocuvite Adult 50 Plus) 1 cap PO QAM aspirin 81 mg tablet,delayed release 81 mg PO QAM trazodone 100 mg tablet 200 mg PO HS atenolol 25 mg tablet 25 mg PO HS buprenorphine 7.5 mcg/hour weekly transdermal patch (Butrans) 1 patch transdermal Q7D levothyroxine 88 mcg tablet 88 mcg PO QAM losartan 50 mg tablet 50 mg PO BID pramipexole 0.5 mg tablet 0.5 mg PO HS STOP 7 days before surgery if okay with prescriber methotrexate (PF) 17.5 mg/0.35 mL subcutaneous auto-injector 17.5 mg subcut Q7D Continue as directed buprenorphine 7.5 mcg/hour weekly transdermal patch ([place]) 1 patch transdermal Q7D (do not apply on or near surgical site) STOP taking 2 weeks before surgery vit C,E,zinc,copper-[id number] 250 mg-lutein 5 mg-zeaxanthin 1 mg capsule (Ocuvite Adult 50 Plus) 1 cap PO QAM DO NOT take the morning of surgery calcium carbonate 600 mg calcium (1,500 mg) tablet (Calcium) 600 mg PO BID cholecalciferol (vitamin D3) 125 mcg (5,000 unit) tablet (Vitamin D3) 5,000 unit PO QAM ferrous sulfate 325 mg (65 mg iron) tablet 325 mg PO Q2D folic acid 1 mg tablet 1 mg PO QAM magnesium 250 mg tablet 250 mg PO QAM thiamine HCl (vitamin B1) 100 mg tablet (Vitamin B-1) 100 mg PO QAM losartan 50 mg tablet 50 mg PO BID Take morning of surgery With a small sip of water, OTHERWISE NOTHING TO EAT OR DRINK AFTER MIDNIGHT: bupropion HCl 150 mg 24 hr tablet, extended release (Wellbutrin XL) 150 mg PO QAM buspirone 10 mg tablet 10 mg PO TID omeprazole 20 mg capsule,delayed release 20 mg PO BID aspirin 81 mg tablet,delayed release 81 mg PO QAM (unless directed otherwise by surgeon) levothyroxine 88 mcg tablet 88 mcg PO QAM Take evening before surgery buspirone 10 mg tablet 10 mg PO TID calcium carbonate 600 mg calcium (1,500 mg) tablet (Calcium) 600 mg PO BID cyproheptadine 4 mg tablet 8 mg PO HS docusate sodium 100 mg capsule 300 mg PO HS fluticasone propionate 50 mcg/actuation nasal spray,suspension (Flonase Allergy Relief) 2 spray intranasal HS omeprazole 20 mg capsule,delayed release 20 mg PO BID rosuvastatin 5 mg tablet (Crestor) 5 mg PO HS trazodone 100 mg tablet 200 mg PO HS atenolol 25 mg tablet 25 mg PO HS losartan 50 mg tablet 50 mg PO BID pramipexole 0.5 mg tablet 0.5 mg PO HS Other Notes If you have any questions please call us at [phone] or [phone] or [phone] or [phone]
--- NOTE | 2022-08-22 11:41 | Anesthesiology Consultation ---
Date of Service August 22, 2022 Assessment & Plan (1) Encounter for pre-operative examination: - worsening dysphagia and dyspnea with usual activities, choking including waking from sleep, patient advised to follow aspiration precautions by pulmonology. 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 Case discussed in detail with Dr. Calderon who advised no further evaluation, testing or intervention needed prior to surgery from anesthesia standpoint. Pt was advised to contact office if ulcers recur, surgeon's office made aware. 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 GERD without esophagitis status post Americo fundoplication. Esophageal dysmotility...Ground-glass opacity secondary to interstitial lung disease most likely...continue aspiration precautions...get previously ordered PFTs in [facility] which appear to be scheduled for August..." - no blood products per pt d/t restoration beliefs. Type and screen discussed with pt and she did not want testing done given refusal of blood products, surgeon's office made aware. - Outpatient joint assessment: Patient is currently scheduled for inpatient pathway. If re-evaluated pending system levels during current pandemic/surgeon requests outpatient pathway, patient is not acceptable candidate for outpatient joint program from anesthesia standpoint. Chart Review Chart Review: Acceptable Risk for Surgery and Patient seen in Pre Admission Testing Teaching & Discussion Pre-Anesthesia Teaching/Discussion Notes: Instructed NPO after midnight before surgery, except medications with 15 cc of water. Medication instructions provided according to the PAT guidelines. History Surgery Operation Date: 09/20/22 09:20 Proposed Procedures p Left Total Knee Arthroplasty - Ramone Tanner DO Height/Weight Height: 5 ft 2.75 in Weight: 87.543 kg Allergies Allergy/AdvReac Type Severity Reaction Status Date / Time morphine AdvReac Severe Low BP Verified 08/20/22 12:10 lisinopril AdvReac Intermediate Cough Verified 08/20/22 12:10 Medications Home Medications Medication Instructions Recorded Confirmed Last Taken bupropion HCl 150 mg 24 hr tablet, 150 mg PO QAM 07/11/19 08/19/22 06/16/21 extended release (Wellbutrin XL) buspirone 10 mg tablet 10 mg PO TID 07/11/19 08/19/22 06/16/21 calcium carbonate 600 mg calcium 600 mg PO BID 07/11/19 08/19/22 06/16/21 (1,500 mg) tablet (Calcium) cholecalciferol (vitamin D3) 125 5,000 unit PO QAM 07/11/19 08/19/22 06/16/21 mcg (5,000 unit) tablet (Vitamin D3) cyproheptadine 4 mg tablet 8 mg PO HS 07/11/19 08/19/22 06/15/21 docusate sodium 100 mg capsule 300 mg PO HS 07/11/19 08/19/22 06/15/21 ferrous sulfate 325 mg (65 mg 325 mg PO Q2D 07/11/19 08/19/22 06/14/21 iron) tablet fluticasone propionate 50 2 spray intranasal HS 07/11/19 08/19/22 06/15/21 mcg/actuation nasal spray,suspension (Flonase Allergy Relief) folic acid 1 mg tablet 1 mg PO QAM 07/11/19 08/19/22 06/16/21 magnesium 250 mg tablet 250 mg PO QAM 07/11/19 08/19/22 06/16/21 methotrexate (PF) 17.5 mg/0.35 mL 17.5 mg subcut Q7D 07/11/19 08/19/22 06/10/21 subcutaneous auto-injector omeprazole 20 mg capsule,delayed 20 mg PO BID 07/11/19 08/19/22 06/16/21 release rosuvastatin 5 mg tablet (Crestor) 5 mg PO HS 07/11/19 08/19/22 06/15/21 thiamine HCl (vitamin B1) 100 mg 100 mg PO QAM 07/11/19 08/19/22 06/16/21 tablet (Vitamin B-1) vit C,E,zinc,copper-[id number] 250 1 cap PO QAM 07/11/19 08/19/22 06/16/21 mg-lutein 5 mg-zeaxanthin 1 mg capsule (Ocuvite Adult 50 Plus) aspirin 81 mg tablet,delayed 81 mg PO QAM 06/30/20 08/19/22 06/16/21 release trazodone 100 mg tablet 200 mg PO HS 06/16/21 08/19/22 06/15/21 atenolol 25 mg tablet 25 mg PO HS 08/19/22 08/19/22 Unknown buprenorphine 7.5 mcg/hour weekly 1 patch transdermal Q7D 08/19/22 08/19/22 Unknown transdermal patch (Butrans) levothyroxine 88 mcg tablet 88 mcg PO QAM 08/19/22 08/19/22 Unknown losartan 50 mg tablet 50 mg PO BID 08/19/22 08/19/22 Unknown pramipexole 0.5 mg tablet 0.5 mg PO HS 08/19/22 08/19/22 Unknown Docusate Plus 08/22/22 Unknown amoxicillin 500 mg tablet 500 mg PO QID PRN dental 08/22/22 08/22/22 Unknown azelastine 137 mcg (0.1 %) nasal intranasal 08/22/22 Unknown spray aerosol cyanocobalamin (vitamin B-12) mcg 08/22/22 Unknown 1,000 mcg tablet duloxetine 20 mg capsule,delayed 40 mg PO BID 08/22/22 08/22/22 Unknown release loratadine 10 mg tablet 10 mg PO DAILY PRN Nasal Congestion 08/22/22 08/22/22 Unknown meclizine PRN Dizziness 08/22/22 Unknown tizanidine PRN Spasms 08/22/22 Unknown vitamin A-vitamin C-vitamin E 1 tab PO DAILY 08/22/22 08/22/22 Unknown Past Medical History Medical History (Updated 08/22/22 @ 11:58 by Christina Grant PA-C) Anemia Anxiety Closed fracture of right distal femur 2019 Depression Diverticulitis Hx, 2017 Dyslipidemia Dysphagia liquids and food, worsening per pt-occasionally choking including waking from sleep choking or coughing Elevated hemidiaphragm right Gastroparesis GERD (gastroesophageal reflux disease) controlled symptoms per pt History of carotid artery disease mild bilateral intracranial ICA stenoses-head MRA 02/2022 History of COVID-19 08/2020, loss taste/smell, body aches, sinus issues > resolved (after sinus surgery) HTN (hypertension) controlled, stable per pt Hx of migraines Hypothyroidism Interstitial lung disease Follows with Dr. Eid/[place]az[place] Polymyositis MTX Refusal of blood product d/t restoration beliefs Rhabdomyolysis 2016 suspected r/t recent fall and/or statin use at that time Patient denies h/o stroke, seizures, heart attack, heart failure, DM, blood clots or blood transfusions. Exercise / Class Metabolic Activity III < 4 Walking/Shop/Light housework (ambulates with rolling walker, SOB with usual activities ongoing x several yrs gradually worsening per pt; denies chest discomfort) Past Family History Family History Other No significant family history Past Surgical History Surgical History (Updated 08/22/22 @ 12:01 by Christina Grant PA-C) H/O nasal septoplasty H/O total knee replacement Right History of back surgery History of cholecystectomy History of esophagogastroduodenoscopy (EGD) History of Americo fundoplication History of tubal ligation Hx of colonoscopy Hx of squamous cell carcinoma excision Excision (head) Nausea and vomiting after administration of anesthetic agent Years ago, denies needing scop patch Past Anesthesia History No Hx of Anesthesia Complications and No Family Hx of Anesthesia Complications History of PONV History of PONV (denies needing scop patch) and Hx of Motion Sickness Social History Smoking Status: Never smoker Do You Dip or Chew Tobacco: No Hx Alcohol Use: Yes alcohol intake frequency: other Alcohol Intake Frequency Comment: very rare Hx Substance Use: No substance use type: does not use Review of Systems Snoring, denies witnessed apneas. Patient denies chest pain, shortness of breath, dyspnea on exertion, fever, chills, cough, wheezing, or palpitations. Physical Exam Vital Signs Vitals BP 134/80 P 72 TEMP 98.5 SP02 97% on RA RESP 18 Physical Full cervical extension range of motion without pain TMD 3.5 finger breadths Mallampati Score 2 Dentition: full upper denture, missing several lower teeth, several caps/crowns; denies chipped or loose teeth, implants or bridges Lungs: normal respiratory effort. Clear throughout to auscultation, no adventitious breath sounds Cardiac: regular rate and rhythm, no murmurs noted Carotid arteries: negative bruit bilat Lab Results Anesthesia Preop Results Results Anesthesia Widget: PT 10.3 Seconds (9.0-12.0) 08/22/22 PTT 25.7 Seconds (21.0-31.0) 08/22/22 INR 1.0 (0.9-1.1) 08/22/22 Testing Laboratory Results 07/31/2022 WBC: 7.8 H/H: 11/ PLATELETS: 269 SODIUM: 134 POTASSIUM: 5 CHLORIDE: 99 CO2: 27 BUN: 21 CREATININE: 0.7 GLUCOSE: 88 Electrocardiogram Date: 08/22/22 NSR, rate 72 bpm RBBB Minimal voltage criteria for LVH, may be normal variant Echocardiogram Date: 07/20/21 EF 60-64% Mild cLVH Normal LV wall motion No significant valvular heart disease Grade I diastolic dysfunction Other Testing CT chest, abdomen, pelvis 03/08/22 No acute findings. Streaky bibasilar and right middle lobe opacities favor atelectasis. MRI, MRA brain 03/07/22 1. No acute intracranial abnormality. No restricted diffusion concerning for acute CVA. No abnormal enhancement. 2. Interval bilateral ethmoidectomy, bilateral partial middle turbinectomy, bilateral uncinectomy, and bilateral maxillary antrectomy compared with November [address] Bilateral maxillary sinus air-fluid levels may represent acute sinusitis. 3. Scattered cerebral white matter T2/FLAIR hyperintense and nonenhancing foci are present, which are nonspecific but compatible with chronic microvascular ischemic changes, greater in number than expected for stated age. 4. Mild chronic brain parenchymal volume loss. HEAD MRA: 1. At worst mild bilateral intracranial ICA stenoses. 2. Otherwise, negative noncontrast head MR angiogram. No additional stenosis. Within limitations of MR technique, no intracranial arterial occlusion, aneurysm, or dissection. COVID-19 Risk Screen Screening Information COVID-19 Screen Date: 08/22/22 Exposure 21 Days Family/Household +COVID Last 21 Days: No Exposure 10 Days Any COVID Exposure Last 10 Days: No Symptoms Last 10 Days Experienced COVID Sx Last 10 Days: No + COVID 0-90 Days COVID + in Last 0-90 Days: No
--- NOTE | 2022-08-22 12:51 | PAT Medication Instructions ---
Medication Instructions Date of Service August 22, 2022 Home Medications bupropion HCl 150 mg 24 hr tablet, extended release (Wellbutrin XL) 150 mg PO QAM buspirone 10 mg tablet 10 mg PO TID calcium carbonate 600 mg calcium (1,500 mg) tablet (Calcium) 600 mg PO BID cholecalciferol (vitamin D3) 125 mcg (5,000 unit) tablet (Vitamin D3) 5,000 unit PO QAM cyproheptadine 4 mg tablet 8 mg PO HS docusate sodium 100 mg capsule 300 mg PO HS ferrous sulfate 325 mg (65 mg iron) tablet 325 mg PO Q2D fluticasone propionate 50 mcg/actuation nasal spray,suspension (Flonase Allergy Relief) 2 spray intranasal HS folic acid 1 mg tablet 1 mg PO QAM magnesium 250 mg tablet 250 mg PO QAM methotrexate (PF) 17.5 mg/0.35 mL subcutaneous auto-injector 17.5 mg subcut Q7D omeprazole 20 mg capsule,delayed release 20 mg PO BID rosuvastatin 5 mg tablet (Crestor) 5 mg PO HS thiamine HCl (vitamin B1) 100 mg tablet (Vitamin B-1) 100 mg PO QAM vit C,E,zinc,copper-[id number] 250 mg-lutein 5 mg-zeaxanthin 1 mg capsule (Ocuvite Adult 50 Plus) 1 cap PO QAM aspirin 81 mg tablet,delayed release 81 mg PO QAM trazodone 100 mg tablet 200 mg PO HS atenolol 25 mg tablet 25 mg PO HS buprenorphine 7.5 mcg/hour weekly transdermal patch (Butrans) 1 patch transdermal Q7D levothyroxine 88 mcg tablet 88 mcg PO QAM losartan 50 mg tablet 50 mg PO BID pramipexole 0.5 mg tablet 0.5 mg PO HS Docusate Plus amoxicillin 500 mg tablet 500 mg PO QID PRN azelastine 137 mcg (0.1 %) nasal spray aerosol intranasal cyanocobalamin (vitamin B-12) 1,000 mcg tablet mcg duloxetine 20 mg capsule,delayed release 40 mg PO BID loratadine 10 mg tablet 10 mg PO DAILY PRN meclizine PRN tizanidine PRN vitamin A-vitamin C-vitamin E 1 tab PO DAILY STOP 7 days before surgery methotrexate (PF) 17.5 mg/0.35 mL subcutaneous auto-injector 17.5 mg subcut Q7D Continue as directed buprenorphine 7.5 mcg/hour weekly transdermal patch (Butrans) 1 patch transdermal Q7D (do not apply on or near surgical site) meclizine PRN(if needed) azelastine 137 mcg (0.1 %) nasal spray aerosol intranasal amoxicillin 500 mg tablet 500 mg PO QID PRN(if needed) STOP taking 2 weeks before surgery vit C,E,zinc,copper-[id number] 250 mg-lutein 5 mg-zeaxanthin 1 mg capsule (Ocuvite Adult 50 Plus) 1 cap PO QAM vitamin A-vitamin C-vitamin E 1 tab PO DAILY DO NOT take the morning of surgery calcium carbonate 600 mg calcium (1,500 mg) tablet (Calcium) 600 mg PO BID cholecalciferol (vitamin D3) 125 mcg (5,000 unit) tablet (Vitamin D3) 5,000 unit PO QAM ferrous sulfate 325 mg (65 mg iron) tablet 325 mg PO Q2D folic acid 1 mg tablet 1 mg PO QAM magnesium 250 mg tablet 250 mg PO QAM thiamine HCl (vitamin B1) 100 mg tablet (Vitamin B-1) 100 mg PO QAM losartan 50 mg tablet 50 mg PO BID tizanidine PRN loratadine 10 mg tablet 10 mg PO DAILY PRN cyanocobalamin (vitamin B-12) 1,000 mcg tablet mcg Docusate Plus Take morning of surgery With a small sip of water, OTHERWISE NOTHING TO EAT OR DRINK AFTER MIDNIGHT: bupropion HCl 150 mg 24 hr tablet, extended release (Wellbutrin XL) 150 mg PO QAM buspirone 10 mg tablet 10 mg PO TID omeprazole 20 mg capsule,delayed release 20 mg PO BID aspirin 81 mg tablet,delayed release 81 mg PO QAM (unless directed otherwise by surgeon) levothyroxine 88 mcg tablet 88 mcg PO QAM duloxetine 20 mg capsule,delayed release 40 mg PO BID Take evening before surgery buspirone 10 mg tablet 10 mg PO TID calcium carbonate 600 mg calcium (1,500 mg) tablet (Calcium) 600 mg PO BID cyproheptadine 4 mg tablet 8 mg PO HS docusate sodium 100 mg capsule 300 mg PO HS fluticasone propionate 50 mcg/actuation nasal spray,suspension (Flonase Allergy Relief) 2 spray intranasal HS omeprazole 20 mg capsule,delayed release 20 mg PO BID rosuvastatin 5 mg tablet (Crestor) 5 mg PO HS trazodone 100 mg tablet 200 mg PO HS atenolol 25 mg tablet 25 mg PO HS losartan 50 mg tablet 50 mg PO BID tizanidine PRN(if needed) duloxetine 20 mg capsule,delayed release 40 mg PO BID pramipexole 0.5 mg tablet 0.5 mg PO HS Other Notes If you have any questions please call us at [phone] or [phone] or [phone] or [phone]
--- NOTE | 2022-10-03 07:31 | History & Physical Report ---
Date of Service October 03, 2022 Assessment & Plan (1) Osteoarthritis of left knee: We will proceed with a left total knee arthroplasty. Postoperatively she will be started on aspirin for DVT prophylaxis and kept overnight in the hospital for postop medical management. She plans [facility] if she qualifies. History of Present Illness Chief Complaint: Osteoarthritis of the left knee. Primary Care Provider: Uma GuillermoDO Granda is a pleasant 71-year-old female who had a right knee replacement by Dr. Dodosn about 20 years ago. She has done well with that. Unfortunately she has been dealing with left knee pain. X-rays and clinical examination have been diagnostic for advanced arthritis of the left knee. She ambulates with a walker. After failing conservative treatment, she has elected to proceed with a left total knee arthroplasty. Allergies Allergy/AdvReac Type Severity Reaction Status Date / Time morphine AdvReac Severe Low BP Verified 08/20/22 12:10 lisinopril AdvReac Intermediate Cough Verified 08/20/22 12:10 Home Medications Medication Instructions Recorded Confirmed Type bupropion HCl 150 mg 24 hr tablet, 150 mg PO QAM 07/11/19 08/19/22 History extended release (Wellbutrin XL) buspirone 10 mg tablet 10 mg PO TID 07/11/19 08/19/22 History calcium carbonate 600 mg calcium 600 mg PO BID 07/11/19 08/19/22 History (1,500 mg) tablet (Calcium) cholecalciferol (vitamin D3) 125 5,000 unit PO QAM 07/11/19 08/19/22 History mcg (5,000 unit) tablet (Vitamin D3) cyproheptadine 4 mg tablet 8 mg PO HS 07/11/19 08/19/22 History docusate sodium 100 mg capsule 300 mg PO HS 07/11/19 08/19/22 History ferrous sulfate 325 mg (65 mg 325 mg PO Q2D 07/11/19 08/19/22 History iron) tablet fluticasone propionate 50 2 spray intranasal HS 07/11/19 08/19/22 History mcg/actuation nasal spray,suspension (Flonase Allergy Relief) folic acid 1 mg tablet 1 mg PO QAM 07/11/19 08/19/22 History magnesium 250 mg tablet 250 mg PO QAM 07/11/19 08/19/22 History methotrexate (PF) 17.5 mg/0.35 mL 17.5 mg subcut Q7D 07/11/19 08/19/22 History subcutaneous auto-injector omeprazole 20 mg capsule,delayed 20 mg PO BID 07/11/19 08/19/22 History release rosuvastatin 5 mg tablet (Crestor) 5 mg PO HS 07/11/19 08/19/22 History thiamine HCl (vitamin B1) 100 mg 100 mg PO QAM 07/11/19 08/19/22 History tablet (Vitamin B-1) vit C,E,zinc,copper-[id number] 250 1 cap PO QAM 07/11/19 08/19/22 History mg-lutein 5 mg-zeaxanthin 1 mg capsule (Ocuvite Adult 50 Plus) aspirin 81 mg tablet,delayed 81 mg PO QAM 06/30/20 08/19/22 History release trazodone 100 mg tablet 200 mg PO HS 06/16/21 08/19/22 History atenolol 25 mg tablet 25 mg PO HS 08/19/22 08/19/22 History buprenorphine 7.5 mcg/hour weekly 1 patch transdermal Q7D 08/19/22 08/19/22 History transdermal patch (Butrans) levothyroxine 88 mcg tablet 88 mcg PO QAM 08/19/22 08/19/22 History losartan 50 mg tablet 50 mg PO BID 08/19/22 08/19/22 History pramipexole 0.5 mg tablet 0.5 mg PO HS 08/19/22 08/19/22 History Docusate Plus 08/22/22 History amoxicillin 500 mg tablet 500 mg PO QID PRN dental 08/22/22 08/22/22 History azelastine 137 mcg (0.1 %) nasal intranasal 08/22/22 History spray aerosol cyanocobalamin (vitamin B-12) mcg 08/22/22 History 1,000 mcg tablet duloxetine 20 mg capsule,delayed 40 mg PO BID 08/22/22 08/22/22 History release loratadine 10 mg tablet 10 mg PO DAILY PRN Nasal Congestion 08/22/22 08/22/22 History meclizine PRN Dizziness 08/22/22 History tizanidine PRN Spasms 08/22/22 History vitamin A-vitamin C-vitamin E 1 tab PO DAILY 08/22/22 08/22/22 History mupirocin 2 % topical ointment 1 applic topical BID #15 grams 09/14/22 Rx Past Med/Surg History Medical History Anemia Anxiety Closed fracture of right distal femur 2019 Depression Diverticulitis Hx, 2018 Dyslipidemia Dysphagia liquids and food, worsening per pt-occasionally choking including waking from sleep choking or coughing Elevated hemidiaphragm right Gastroparesis GERD (gastroesophageal reflux disease) controlled symptoms per pt History of carotid artery disease mild bilateral intracranial ICA stenoses-head MRA 02/2022 History of COVID-19 08/2020, loss taste/smell, body aches, sinus issues > resolved (after sinus surgery) HTN (hypertension) controlled, stable per pt Hx of migraines Hypothyroidism Interstitial lung disease Follows with Dr. Eid/XANDER Polymyositis MTX Refusal of blood product d/t yazdanism beliefs Rhabdomyolysis 2015 suspected r/t recent fall and/or statin use at that time Surgical History H/O nasal septoplasty H/O total knee replacement Right History of back surgery History of cholecystectomy History of esophagogastroduodenoscopy (EGD) History of Americo fundoplication History of tubal ligation Hx of colonoscopy Hx of squamous cell carcinoma excision Excision (head) Nausea and vomiting after administration of anesthetic agent Years ago, denies needing scop patch Family History Other No significant family history Social History Smoking Status: Never smoker Second Hand Exposure: Yes (as a child); Do You Dip or Chew Tobacco: No; Tobacco Cessation Education Requested by Patient: No Hx Alcohol Use: Yes Hx Substance Use: No Preferred Language: French Communication Ability: Effective Crm System Administrator Required: No Beliefs That Will Affect Care: Muslim Muslim Beliefs: [employer]ybeterian Current Living Situation: Other Current Living Situation Comment: lives in her own apt in dtr's basement Other Information That Helps Us Care for You: No Feels Safe at Home: Yes Safety Concerns: Feels Safe At This Time Assistive Devices: Denture - Upper, Glasses and Walker Review of Systems All systems reviewed & are unremarkable except as noted in HPI & below. Physical Exam On physical examination of the left knee, she has a slight valgus deformity. She is range of motion of 0 to 120 degrees. No instability. Pain of the distal lateral femoral condyle.. Constitutional WD/WN, vitals as above Eyes PERRL, conjunctivae normal, anicteric sclerae ENMT external ear and nose normal, oropharynx normal Neck trachea midline, no thyromegaly Respiratory normal respiratory effort, lungs clear to auscultation Cardiovascular RRR, no murmur, no edema Gastrointestinal (Abdomen) normal bowel sounds, soft, nontender, no hepatosplenomegaly Skin no rashes, warm and dry Psychiatric A+Ox3, euthymic affect Results & Data Results & Data Laboratory Results . Diagnostic Findings X-rays of the left knee do show some lateral compartmental arthritis with joint space narrowing, osteophyte formation, and near [id number] articulation. PG Care Time/CCT Total # of Minutes Spent Total Time Spent with Patient: Total time spent is greater than 50% in coordination of care (as documented) at patient's floor/unit and/or counseling patient: Coding Level of Care Code None Diagnoses Osteoarthritis of left knee M17.12
[~2022-10-04 07:00] MED LIST changes: +ACETAMINOPHEN 500 MG TAB PO SCH; -ASPI81TA28 PO; +BUPIVACAINE 0.5 % 5 MG/1 ML PF 10ML VIAL ONE; -BUPR150T7 PO; -BUSP-8 PO; -CYAN100020 PO; -DSY100 PO; +FAMOTIDINE 20 MG TAB PO SCH; -FOLI1TAB8 PO; +GABAPENTIN 300 MG CAP PO SCH; -HYDR-5688 PO; -LEVO75TA5 PO; -LISI-461 PO; +LR 500ML BOLUS, THEN 15ML/HR IV SCH; +LR 60ML/HR IV SCH; -METO5TAB2 PO; -MTH25 PO; -OMEP20CA59 PO; +ORTHO JOINT MIX INFIL SCH; -PHYT100T PO; -POTA20TA16 PO; -PRC4 PO; +ROPIVACAINE 0.5% 5 MG/ML 30 ML VIAL ONE; +TRANEXAMIC ACID 1,000 MG **IV Intra-op IV SCH; +TRANEXAMIC ACID 1,000 MG **IV Pre-op IV SCH; +ceFAZolin 2000MG 2,000 MG/15 ML SYR IV SCH; +dexAMETHasone 4 MG TAB PO SCH
[2022-10-04] MEDS ORDERED: ATROPINE SULFATE 0.1 MG/ML 10ML SYR IV PRN (08:14)
[2022-10-04] MEDS ORDERED: ONDANSETRON INJ 2 MG/ML 2 ML VIAL IV PRN ×2 (08:14→13:31)
[2022-10-04] MEDS ORDERED: ePHEDrine sulfate 50 MG/ML AMP IV PRN (08:14)
[2022-10-04] MEDS ORDERED: fentaNYL citrate 100 MCG/2 ML VIAL ONE ×2 (08:40→09:37)
[2022-10-04] MEDS ORDERED: MIDAZOLAM HCL 1 MG/ML 2ML VIAL ONE (08:41)
[2022-10-04] MEDS ORDERED: ONDANSETRON INJ 2 MG/ML 2 ML VIAL ONE (08:51)
[2022-10-04] MEDS ORDERED: ROCURONIUM BROMIDE 10 MG/ML 5 ML VIAL IV ONE (08:51)
[2022-10-04] MEDS ORDERED: PROPOFOL IV EMULSION 10 MG/ML 20 ML VIAL IV ONE (08:51)
[2022-10-04] MEDS ORDERED: LIDOCAINE 2% MPF LOCAL 5 ML VIAL INFIL ONE (08:51)
[2022-10-04] MEDS ORDERED: DEXAMETHASONE SOD INJ 4 MG/ML VIAL ONE (08:51)
[2022-10-04] MEDS ORDERED: GLYCOPYRROLATE 0.2 MG/ML VIAL ONE (08:51)
[2022-10-04] MEDS ORDERED: NEOSTIGMINE METHYLSULFATE 1 MG/ML 10ML VIAL ONE (08:51)
[2022-10-04] MEDS ORDERED: SUCCINYLCHOLINE CHLORIDE 20 MG/ML 10 ML VIAL IV ONE (08:51)
[2022-10-04] MEDS ORDERED: ORTHO JOINT ANESTHETIC ONE (09:09)
--- NOTE | 2022-10-04 09:14 | History & Physical Bridge Note ---
Date of Service October 04, 2022 History & Physical Bridge Note I have examined the patient, reviewed the History & Physical and in the interval since the performance of the History & Physical I have noted the following changes of clinical significance: no changes noted
--- NOTE | 2022-10-04 10:38 | Operative Report ---
PG Post Operative Report Pre & Post Diagnosis Operation Date: 09/20/22 08:10 <No data on this case meets the specified criteria> Operation Date: 10/04/22 09:15 Pre-Op Diagnosis: Osteoarthritis of left knee Post-Op Diagnosis: Osteoarthritis of left knee I identified the patient and participated in the time-out.: Yes Procedure Operation Date: 09/20/22 08:10 <No data on this case meets the specified criteria> Operation Date: 10/04/22 09:15 Actual Procedures p Left Total Knee Arthroplasty(Left) - Ramone Tanner DO Surgeon Ramone Tanner DO Cabinet Mounter Ramone Sarmiento PA-C Estimated Blood Loss 50 Findings Consistent with Post-Op Diagnosis Specimens Left femoral and tibial bone Description of Procedure Implants used: I used a [employer] total knee arthroplasty system with a size 7 standard femur, E tibia, 31 oval patella, and a size 14 medial congruent polyethylene bearing. All components were cemented in place with Biomet cement. Kalee arrived [facility] for the above procedure. She was seen in the preoperative holding area and the operative extremity was identified and signed. She was given a preoperative antibiotic, TXA, a spinal anesthetic and an adductor nerve block. She was taken back to the operating room and laid on the table in supine position. She was given basic sedation. The operative knee was then prepped and draped in sterile fashion. A timeout was done, and the patient and the operative extremity was properly identified. A midline incision was made directly over the patella. Dissection was taken down to the extensor mechanism. A midvastus arthrotomy was used. The medial retinaculum was released and the fat pad was mostly excised. The knee was flexed and the ACL, PCL, and meniscus were removed. A drill was sent down the center of the femoral canal followed by an intramedullary fabian. Off that fabian a distal femoral cutting block was placed. 9 mm was resected off the distal femur at 5 of valgus. A posterior referencing AP sizing guide was then placed on the distal femur. The femur measured to be a size 7. 2 drill holes were placed in 3 of external rotation. A 4-in-1 cutting block was then impacted into place. Anterior, posterior, and chamfer cuts were then made. The proximal tibia was then exposed. An external tibial alignment guide was placed. A tibial cut guide was then anchored in place and the proximal tibia was then resected. The posterior aspect of the knee was then opened up and any additional meniscus fragments and osteophytes were removed. The tibia measured to be a size E. The tibial plate was then placed in the appropriate rotation and the tibia was drilled and punched. Trial components were then placed. I used a size 14 medial congruent polyethylene insert. The knee was brought through a full range of motion and felt to be stable. The peg holes for the femoral component were then drilled. The patella was then everted and 9 mm was resected off the posterior aspect of the patella. The patella measured to be a size 31 oval. 3 peg holes were then drilled. A trial patella was placed. The knee was once again brought through a full range of motion and felt to be stable. Trial components were then removed. The surrounding soft tissues were injected with 100 cc of an orthopedic pain control cocktail. All components were then cemented into place with Biomet cement. The final polyethylene insert was then snapped into place. Once cement was dry the tourniquet was deflated. Hemostasis was obtained. A dilute betadyne lavage was then done for 3 minutes. The joint was then irrigated with normal saline solution. The subvastus arthrotomy was then closed with #1 Vicryl suture. The skin was closed with 2-0 Vicryl, 3-0V lock suture, and saul. A soft compressive dressing was placed. She was then transferred to a hospital bed and taken to the postanesthesia care unit in stable condition. She tolerated the procedure well. Ramone Sarmiento PA-C, was present for the entire procedure. He was critical for patient positioning, prepping, draping, retraction exposure, wound closure and application of sterile dressing. I attest to the content of the Intraoperative Record and any orders documented therein. Any exceptions are noted below.
[2022-10-04] MEDS ORDERED: KETOROLAC 30 MG/ML VIAL ONE (10:55)
[2022-10-04] MEDS: fentaNYL citrate 100 MCG/2 ML VIAL IV PRN ×5 (11:24→11:57)
--- NOTE | 2022-10-04 12:22 | Anesthesiology Progress Note ---
Date of Service October 04, 2022 Anesthesia Post Procedure Vital Signs Vital Signs: Temp Pulse Pulse Resp BP Pulse Ox O2 Del Method 10/04/22 11:50 58 L 15 130/69 91 Room Air 10/04/22 11:30 59 L 12 152/67 H 96 Room Air 10/04/22 11:40 59 L 20 149/59 H 96 Room Air 10/04/22 11:20 68 25 H 161/88 H 100 Oxymask 10/04/22 11:13 97.3 F L 92 H 22 157/83 H 100 Oxymask 10/04/22 07:46 98.1 F 69 20 136/95 96 Room Air O2 Flow Rate 10/04/22 11:50 10/04/22 11:30 10/04/22 11:40 10/04/22 11:20 3 10/04/22 11:13 5 10/04/22 07:46 Pain Intensity Left Knee: Pain Intensity: 4 Transfer of Care Handoff Completed per policy Notes Mental Status: alert / awake / arousable and participated in evaluation Patient Amnestic to Procedure: Yes Nausea / Vomiting: adequately controlled Pain: adequately controlled Airway Patency, RR, SpO2: stable & adequate BP & HR: stable & adequate Hydration State: stable & adequate Anesthetic Complications: no major complications apparent and Pt Satisfied with anesthetic care
--- NOTE | 2022-10-04 12:25 | XRay Report ---
TWO VIEWS LEFT KNEE CLINICAL HISTORY: Postoperative examination. FINDINGS: AP and crosstable lateral portable views of the left knee are obtained. A left knee arthrop lasty is in near anatomic alignment. There has been undersurface remodeling of the patella. No acute fracture is seen. There are expected postoperative changes around the knee including skin clips, soft tissue edema, and subcutaneous gas. IMPRESSION: Expected postoperative changes status post left knee arthroplasty. No acute fracture is s een. ACT 112: Negative or not required by law. Electronically signed by: Sd Sutherland M.D. 10/04/2022 12:24 PM
[2022-10-04] MEDS: SODIUM CHLORIDE 0.9% 1000ML 1,000 ML IV SCH (13:10)
[2022-10-04] MEDS ORDERED: bisacodyL 10 MG SUPP PR PRN (13:31)
[2022-10-04] MEDS ORDERED: METOCLOPRAMIDE HCL INJ 5 MG/ML 2 ML VIAL IV PRN (13:31)
[2022-10-04] MEDS ORDERED: LORATADINE 10 MG TAB PO PRN (13:31)
[2022-10-04] MEDS ORDERED: MAGNESIUM HYDROXIDE SUSP 30 ML UDC PO PRN (13:31)
[2022-10-04] MEDS ORDERED: NALOXONE HCL 0.4 MG/1 ML VIAL/CARP IV PRN (13:31)
[2022-10-04] MEDS ORDERED: tiZANidine HCL 4 MG TABLET PO PRN ×2 (13:59→14:15)
[2022-10-04] MEDS: KETOROLAC TROMETHAMINE 15 MG/ML VIAL IV SCH ×2 (14:19→19:59)
[2022-10-04] MEDS: busPIRone 5 MG TAB PO SCH ×2 (15:05→20:21)
[2022-10-04] MEDS: ACETAMINOPHEN 500 MG TAB PO SCH ×2 (15:05→22:11)
[2022-10-04] MEDS: oxyCODONE HCL IR 5 MG TAB (IMMEDIATE RELEASE) PO PRN ×2 (15:12→22:11)
[2022-10-04] MEDS: ceFAZolin 2000MG 2,000 MG/15 ML SYR IV SCH (18:08)
[2022-10-04] MEDS: ASPIRIN 81 MG ECTAB PO SCH (20:20)
[2022-10-04] MEDS: DOCUSATE SODIUM 100 MG CAP PO SCH (20:21)
[2022-10-04] MEDS: DULoxetine HCL 20 MG CAP PO SCH (20:22)
[2022-10-04] MEDS: PANTOprazole 40 MG TAB PO SCH (20:23)
[2022-10-04] MEDS: LOSARTAN POTASSIUM 50 MG TAB PO SCH (20:23)
[2022-10-04] MEDS ORDERED: ROSUVASTATIN CALCIUM 5 MG TAB PO SCH (21:00)
[2022-10-04] MEDS ORDERED: traZODone HCL 100 MG TAB PO SCH (21:00)
[2022-10-04] MEDS ORDERED: ATENOLOL 25 MG TABLET PO SCH (21:00)
[2022-10-04] MEDS ORDERED: PRAMIPEXOLE DIHYDROCHLO 0.5 MG TAB PO SCH (21:00)
[2022-10-04] MEDS ORDERED: FLUTICASONE PROPIONATE NA SPR 16 GM BTL SCH (21:00)
[2022-10-04] MEDS ORDERED: CYPROHEPTADINE HCL 4 MG TAB PO SCH (21:00)
[2022-10-04] MEDS ORDERED: SENNA 8.6 MG TAB PO SCH (21:00)
[2022-10-05] MEDS: SODIUM CHLORIDE 0.9% 1000ML 1,000 ML IV SCH (00:08)
[2022-10-05] MEDS: ceFAZolin 2000MG 2,000 MG/15 ML SYR IV SCH (01:38)
[2022-10-05] MEDS: KETOROLAC TROMETHAMINE 15 MG/ML VIAL IV SCH ×3 (01:38→13:09)
[2022-10-05] MEDS: oxyCODONE HCL IR 5 MG TAB (IMMEDIATE RELEASE) PO PRN ×2 (03:15→09:03)
[2022-10-05] MEDS ORDERED: LEVOTHYROXINE SODIUM 88 MCG TABLET PO SCH (06:30)
[2022-10-05] MEDS: ACETAMINOPHEN 500 MG TAB PO SCH (06:32)
[2022-10-05] MEDS ORDERED: dexAMETHasone 4 MG TAB PO SCH (08:00)
--- NOTE | 2022-10-05 08:06 | Orthopedic Progress Note ---
Date of Service October 05, 2022 Assessment & Plan (1) Status post left knee replacement: Overall she is doing very well. She is not having much pain in the left knee. She will be seen by physical therapy today for ambulation and range of motion exercises. The nursing staff can change the dressing after physical therapy before discharge. She is on aspirin for DVT prophylaxis. [facility]. She will follow-up orthopedics in 2 weeks. Bryon Granda was seen and examined at bedside this morning. Overall she is doing very well. She is not having much pain in the left knee. She has been up and ambulating to the bathroom. She has no complaints.. Review of Systems All systems reviewed & are unremarkable except as noted in HPI & below. Physical Exam On physical examination of the left knee, the dressing is clean and dry. She has active dorsiflexion plantarflexion of her left ankle. Sensation is intact throughout.. Results & Data Results & Data Laboratory Results . Diagnostic Findings Postoperative x-rays of the left knee show the prosthesis to be in anatomic alignment without any evidence of fracture, screws, or loosening. PG Care Time/CCT Total # of Minutes Spent Total Time Spent with Patient: Total time spent is greater than 50% in coordination of care (as documented) at patient's floor/unit and/or counseling patient: Coding Level of Care Code 24479 Post Operative Follow-Up Diagnoses Status post left knee replacement Z96.652
[2022-10-05] MEDS: LOSARTAN POTASSIUM 50 MG TAB PO SCH (08:50)
[2022-10-05] MEDS: PANTOprazole 40 MG TAB PO SCH (08:50)
[2022-10-05] MEDS: busPIRone 5 MG TAB PO SCH (08:51)
[2022-10-05] MEDS: ASPIRIN 81 MG ECTAB PO SCH (08:51)
[2022-10-05] MEDS: DULoxetine HCL 20 MG CAP PO SCH (08:52)
[2022-10-05] MEDS: DOCUSATE SODIUM 100 MG CAP PO SCH (08:53)
[2022-10-05] MEDS ORDERED: AZELASTINE HCL 0.1% NASAL 200 SPRAYS/27,400 MCG BTL SCH (09:00)
[2022-10-05] MEDS ORDERED: buPROPion XL 150 MG TABCR PO SCH (09:00)
[2022-10-05] MEDS ORDERED: THIAMINE HCL 100 MG TAB PO SCH (09:00)
[2022-10-05] MEDS ORDERED: FOLIC ACID 1 MG TAB PO SCH (09:00)
[2022-10-05] MEDS ORDERED: MAGNESIUM OXIDE 400 MG TAB PO SCH (09:00)
[2022-10-05] MEDS ORDERED: MULTIVITAMIN TAB PO SCH (09:00)
--- NOTE | 2022-10-08 07:27 | Discharge Summary ---
Date of Service October 08, 2022 Principal Diagnosis Same as "Discharge Diagnosis" noted below under Discharge Instructions. Discharge Exam On physical examination of the left knee, the dressing is clean and dry. She has active dorsiflexion plantarflexion of her left ankle. Sensation is intact throughout.. Discharge Data Procedures Performed Operation Date: 09/20/22 08:10 <No data on this case meets the specified criteria> Operation Date: 10/04/22 09:15 Actual Procedures p Left Total Knee Arthroplasty(Left) - Ramone Tanner DO Ordered Studies 10/04/22 05:00 US - OR guided needle placemen Routine Hospital Course (1) Status post left knee replacement: On October 04, [address] [facility] and underwent a left knee replacement without complication. Postoperatively she was started on aspirin for DVT prophylaxis and transferred to the general orthopedic floors. Her hospital course was uneventful. On postop day #1, her vital signs were stable and her pain was well controlled. She was able to participate well with physical therapy doing ambulation and range of motion exercises. She was initially thinking about being discharged to [facility], however, she did very well with therapy and decided to be discharged home. She was then discharged home. She will follow-up with orthopedics in 2 weeks. PG Care Time/CCT Total # of Minutes Spent Total Time Spent with Patient: Total time spent is greater than 50% in coordination of care (as documented) at patient's floor/unit and/or counseling patient: Discharge Plan Discharge Items Patient Disposition: Home - Home Health Services Reason For Visit: POST OP Discharge Diagnosis: Left knee replacement Activity: Per Instructions section Non-emergency contact: Surgeon Call non-emergency contact if: your wound has increased redness and your wound has increased drainage Follow-up/Referrals: Uma Guillermo DO [Primary Care Provider] - Diet: Regular Addtl Attending Provider Instructions: Activity and Therapy Recommendations: * If you are using [facility] then therapy will be provided at your home until they feel you have accomplished all of your goals. * If you are using [facility] then Physical Therapy will be provided until they feel you are ready to start Outpatient Physical Therapy. * If you are not using home therapy then Outpatient Physical Therapy should start about 3-5 days from your day of surgery. Therapy will last about 6-10 weeks * It is important not to put a pillow under your knee when you are relaxing or sleeping. It is just as important to make sure you are getting your knee perfectly straight as it is to regain your knee bend. * You were shown a series of exercises in the hospital. Do these exercises three times each day including the exercises you were shown in physical therapy. * Get up and walk several times each day. For the first four weeks, try not to stand or walk for more than one hour at a time. If you do stand or walk for more than one hour, you will not hurt anything, but your leg will likely swel l. * As you feel comfortable, you may change from the walker or crutches to a cane and then to independent walking. Medications: * Narcotic You will likely be sent home from the hospital with a prescription for the narcotic pain medication that worked best throughout your stay. * Aspirin Most patients will be required to take Aspirin 81mg twice a day for 6 weeks after surgery. This is obtained [id number] and a prescription is not necessary. * Other medications may be prescribed for specific circumstances. If you have any questions, please call the office at . * Resume previous home medications unless otherwise instructed TEDs/Elastic Stockings: The white elastic stockings help limit swelling and prevent blood clots from forming in your legs.~ The more you wear them, the more they work. Wear them for six weeks. Dressing Care: The dressing can be changed after physical therapy on postop day #1. Daily dry dressing changes for a few days, especially if the incision is still draining some. If the incision is not draining then you may leave the saul open to air. If there is a little bit of drainage or if the saul are getting stuck on your clothing then cover the incision with a dry dressing. The saul will be removed at your 2 week follow-up appointment. Showering: You may shower 5 days from the day of surgery as long as the incision is no longer draining. You may shower with the saul exposed. Let soapy water run over the saul and pat them dry. Do not scrub or soak the incision. Things To Watch For: * Drainage from the incision site that occurs more than one week after your surgery. * Increased redness at the incision site. * Fever above 102 degrees Fahrenheit. * Unusual chest pain or shortness of breath. * Call [facility] at with any of the above problems Follow-Up Visit: Follow-up with Dr. Tanner's PA (Ramone Sarmiento) 2-3 weeks after your day of surgery. He will remove your saul and answer any questions. If you have any additional questions or concerns, Dr Tanner is usually in the office at the same time and will be available An appointment was probably scheduled when you signed-up for surgery in the office. If you have any questions call Office Instructions: More detailed instructions as well as Frequently Asked Questions were provided in a folder by our office when you signed-up for surgery. Please review these instructions when you get home. If you have any further questions or concerns, please feel free to call the office at [phone] Pending Studies at Discharge: No Stand-Alone Forms: My [facility] SnackFeed, Smoking Cessation Medications and DC Order Prescriptions: New oxycodone-acetaminophen 5-325 mg tablet 1 tab PO Q6H PRN (Reason: pain) Qty: 30 0RF Continued thiamine HCl (vitamin B1) [Vitamin B-1] 100 mg Tablet 100 mg PO QAM cyproheptadine 4 mg Tablet 8 mg PO HS calcium carbonate [Calcium 600] 600 mg calcium (1,500 mg) Tablet 600 mg PO BID ferrous sulfate 325 mg (65 mg iron) Tablet 325 mg PO Q2D buspirone 10 mg Tablet 10 mg PO TID docusate sodium 100 mg Capsule 300 mg PO HS omeprazole 20 mg Capsule,Delayed Release(Dr/Ec) 20 mg PO BID folic acid 1 mg Tablet 1 mg PO QAM magnesium 250 mg Tablet 250 mg PO QAM fluticasone propionate [Flonase Allergy Relief] 50 mcg/actuation [place],Suspension 2 spray INTRANASAL HS rosuvastatin [Crestor] 5 mg Tablet 5 mg PO HS bupropion HCl [Wellbutrin XL] 150 mg Tablet Extended Release 24 Hr 150 mg PO QAM cholecalciferol (vitamin D3) [Vitamin D3] 5,000 unit Tablet 5,000 unit PO QAM Ocuvite Adult 50 Plus 250-5-1 mg Capsule 1 cap PO QAM methotrexate (PF) 17.5 mg/0.35 mL Auto-Injector 17.5 mg SUBCUT Q7D Rx Instructions: TAKE EVERY FRIDAY trazodone 100 mg tablet 200 mg PO HS losartan 50 mg Tablet 50 mg PO BID atenolol 25 mg Tablet 25 mg PO HS pramipexole 0.5 mg Tablet 0.5 mg PO HS levothyroxine 88 mcg Tablet 88 mcg PO QAM Rx Instructions: before breakfast buprenorphine [Butrans] 7.5 mcg/hour Patch Weekly 1 patch TRANSDERMAL Q7D Rx Instructions: left shoulder amoxicillin 500 mg Tablet 500 mg PO QID PRN (Reason: dental) azelastine 137 mcg (0.1 %) Aerosol,[place] 1 spray INTRANASAL DAILY loratadine 10 mg Tablet 10 mg PO DAILY PRN (Reason: Nasal Congestion) vitamin A-vitamin C-vitamin E Tablet 1 tab PO DAILY Label Comments: homeopathic supplement Rx Instructions: administer with a meal duloxetine [Cymbalta] 20 mg Capsule,Delayed Release(Dr/Ec) 40 mg PO BID Docusate Plus 3 tab PO HS tizanidine 1 tab PO DAILY PRN (Reason: Spasms) mupirocin 2 % ointment 1 applic topical BID Qty: 15 0RF Changed aspirin 81 mg Tablet,Delayed Release (Dr/Ec) 81 mg PO BID 42 Days Qty: 0 0RF No Action oxycodone 5 mg tablet 5 - 10 mg PO Q6 PRN (Reason: pain) Qty: 40 0RF Rx Instructions: Take as needed for Pain. Discharge Orders: Discharge Order (Routine); Ordered 10/05/22 Ordered By: Ramone Tanner Admission Data Admit Date/Time: 10/04/22 11:06 Attending Provider: Ramone Tanner Admit Provider: Ramone Tanner Primary Care Provider: Uma Guillermo Other Providers: [facility] Other Interventions: Discharge Summary Assessment (RN) Last Done: 10/05/22 13:08
== END 2022-10-05 14:40 | disposition home health service (06) ==
LOC: ASU 07:00 → 3E 07:00

== ENCOUNTER 2023-01-22 12:14 | Inpatient (IN) ==
[2023-01-22] MEDS ORDERED: SODIUM CHLORIDE 0.9% 1000ML 1,000 ML IV SCH (14:00)
--- NOTE | 2023-01-22 14:32 | XRay Report ---
SINGLE VIEW CHEST CLINICAL HISTORY: Generalized weakness. FINDINGS: An AP, portable, upright chest radiograph is compared to study dated 07/04/2021. The cardio mediastinal silhouette is unremarkable noting atherosclerotic calcification of the thoracic aorta. Th e lungs and pleural spaces are clear noting bibasilar atelectasis. No pneumothorax is seen. The skele thea structures are osteopenic. The bony thorax is grossly intact. Cholecystectomy clips are seen in t he right upper quadrant. IMPRESSION: No active disease in the chest. ACT 112: Negative or not required by law. Electronically signed by: Sd Sutherland M.D. 01/22/2023 2:30 PM
[2023-01-22 14:34] LABS: Basophils # (auto) 0.03 K/uL (0-0.2); Basophils % (auto) 0.2 %; Eosinophils # (auto) 0.02 K/uL (0-0.50); Eosinophils % (auto) 0.2 %; Hematocrit (blood only) 40.1 % (37.0-47.0); Hemoglobin 14.1 g/dl (12.0-16.0); Immature Granulocytes # (auto) 0.05 K/uL (0.01-0.20); Immature Granulocytes % (auto) 0.4 %; Lymphocytes # (auto) 2.43 K/uL (1.2-3.4); Lymphocytes % (auto) 18.6 %; Mean Corpuscular Hemoglobin 34.6 pg (25.0-34.0); Mean Corpuscular Hgb Conc 35.2 g/dL (32.0-36.0); Mean Corpuscular Volume 98.3 fL (80.0-100.0); Mean Platelet Volume 8.4 fL (9.4-12.4); Monocytes % (auto) 5.4 %; Neutrophils # (auto) 9.82 K/uL (1.40-6.50); Neutrophils % (auto) 75.2 %; Platelet Count 356 K/uL (130-400); RDW Coefficient of Variation 13.1 % (11.5-14.5); RDW Standard Deviation 46.1 fL (36.4-46.3); Red Blood Count 4.08 M/uL (4.20-5.40); White Blood Count 13.05 K/ul (4.8-10.8)
[2023-01-22 14:50] LABS: Albumin Globulin Ratio 1.5 (0.9-2); Albumin Level 4.4 gm/dl (3.4-5.0); BUN Creatinine Ratio 27.8 (10-20); Bilirubin,Total 0.9 mg/dl (0.2-1.0); Calcium 9.5 mg/dl (8.6-10.3); Creatinine Clr Calc Pharmacy 93.2 ml/min; Est GFR (Non-African American) 94.9 ml/min; Magnesium 1.9 mg/dl (1.7-2.4); Phosphorus 3.2 mg/dl (2.5-4.9); Potassium 3.8 mmol/L (3.5-5.1); Total Protein 7.4 gm/dl (6.0-8.3)
[2023-01-22 14:55] LABS: Troponin I High Sensitivity 11.4 pg/ml (0-14)
[2023-01-22 15:09] LABS: Prothrombin Time 10.7 Seconds (9.0-12.0)
[2023-01-22] MEDS ORDERED: OPTIRAY 320 100ml IV ONE (15:17)
--- NOTE | 2023-01-22 15:17 | Electrocardiogram Report ---
Test Reason : Blood Pressure : / mmHG Vent. Rate : 071 BPM Atrial Rate : 071 BPM P-R Int : 140 ms QRS Dur : 120 ms QT Int : 444 ms P-R-T Axes : 029 -22 004 degrees QTc Int : 482 ms Normal sinus rhythm Left ventricular hypertrophy with QRS widening ( R in aVL , Ramesh product ) Right bundle branch block Nonspecific ST and T wave abnormality Abnormal ECG When compared with ECG of 22-JAN-2023 06:02, No significant change Confirmed by Manish Mcmillan ([id number]) on 01/22/2023 3:16:31 PM Referred By: Confirmed By:Manish Mcmillan
--- NOTE | 2023-01-22 15:43 | CT Scan Report ---
CT OF THE HEAD WITHOUT CONTRAST CLINICAL HISTORY: confusion, hallucinations COMPARISON STUDY: Head CT January 22, 2023 and March 12, 2015. TECHNIQUE: Helical axial images of the head were obtained without IV contrast. Automated exposure con trol was utilized for the study. A dose lowering technique was utilized adhering to the principles o f ALARA. FINDINGS: No acute intracranial hemorrhage, midline shift or mass effect is present. The ventricular system is unremarkable. The basal cisterns are patent. No extra-axial collections are present. There are no findings to suggest acute dural sinus thrombosis or acute territorial infarct. Left posterior scalp contusion is again noted. There are skin saul. There is no acute calvarial fracture. Mucosal thickening of the left maxillary sinus is noted. A small amount of fluid within the left mastoid air cells is present. IMPRESSION: 1. No acute intracranial findings. 2. Left posterior scalp contusion. No acute calvarial fracture. ACT 112: Negative or not required by law. Electronically signed by: Ahsan Mejia M.D. 01/22/2023 3:40 PM
--- NOTE | 2023-01-22 15:51 | CT Scan Report ---
CT ANGIOGRAM OF THE NECK CLINICAL HISTORY: Change in mental status. Hallucinations. COMPARISON STUDY: CT of the cervical spine dated 03/12/2015 TECHNIQUE: Following the IV administration of 116 of Optiray 320, CT angiogram of the neck was perfor med from the aortic arch to the skull base. Images are reviewed in the axial, sagittal, and coronal p lanes. 3-D MIPS images are created and assessed. IV contrast was administered without complication. A ll measurements were calculated based on NASCET criteria. A dose lowering technique was utilized adh ering to the principles of ALARA. CT DOSE: 963.47 mGy.cm FINDINGS: Thoracic aorta: Visualized portions of the thoracic aorta are normal in caliber. The aortic arch demo nstrates standard 3-vessel anatomy. Right carotid arterial system: The right common carotid artery is widely patent, as are the right int ernal and external carotid arteries. Calcified plaque is noted in the carotid bulb. The internal pro tid artery demonstrates a beaded appearance suggesting fibromuscular dysplasia. Left carotid arterial system: The left common carotid artery is widely patent, as are the left risk management intern al and external carotid arteries. Calcified plaque is noted in the carotid bulb. Vertebral arteries: The vertebral arteries are widely patent bilaterally and codominant. Subclavian arteries: Widely patent bilaterally. Intracranial vasculature: The visualized intracranial vessels at the skull base appear patent. Jugular veins: Widely patent bilaterally. Brain parenchyma: The visualized brain parenchyma the skull base is within normal limits. Lung apices: Partially visualized upper lobe lung parenchyma appears clear. Soft tissues: The visualized pharyngeal soft tissues are normal in appearance noting angiographic pha se technique. The oropharyngeal airway appears widely patent. The salivary and thyroid glands are nor mal in appearance. No cervical lymphadenopathy is seen. Skeletal structures: The skeletal structures are osteopenic. The visualized calvarium at the skull ba se appears intact. The imaged cervical spine is maintained. No lytic or blastic lesion is seen. Sinuses and mastoids: There is evidence of previous paranasal sinus surgery. There is moderate mucosa l thickening and fluid within the left maxillary antrum. Mucosal thickening is also seen within the l eft ethmoid and frontal sinuses. There is a small left mastoid effusion. The right mastoid air cells are clear. IMPRESSION: 1. The internal carotid arteries demonstrate a beaded appearance bilaterally suggesting fibromuscular dysplasia. 2. Otherwise normal CT angiogram of the neck. The carotid and vertebral arteries are patent bilateral ly. ACT 112: Negative or not required by law. Electronically signed by: Sd Sutherland M.D. 01/22/2023 3:48 PM
--- NOTE | 2023-01-22 15:56 | CT Scan Report ---
HEAD CTA HISTORY: confusion, hallucinations TECHNIQUE: Multiaxial CT images of the head were performed both before and after the intravenous admi nistration of contrast to evaluate the major cerebral vessels. Maximum intensity projection images we re also obtained. A dose lowering technique was utilized adhering to the principles of ALARA. COMPARISON: Head CT 01/22/2023. FINDINGS: Left posterior scalp swelling is again noted with associated sutures. Moderate mucosal thic kening within the left maxillary sinus. There is partial opacification of the left ethmoid air cells. The major dural venous sinuses are patent. 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 There is a 3 mm saccular aneurysm with in the right cervical internal carotid artery. Visualized intracranial internal carotid arteries, dis thea vertebral arteries, and basilar artery are widely patent. There is no significant stenosis, occlu ranjit, or aneurysm seen within the bilateral ACAs, MCAs, or shipwright supervisor. IMPRESSION: 1. No significant stenosis, occlusion, or aneurysm within the [place]. 2. 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 3. Left posterior scalp swelling again noted. ACT 112: Negative or not required by law. Electronically signed by: Cheng Hoover M.D. 01/22/2023 3:55 PM
[2023-01-22] MEDS ORDERED: PRAMIPEXOLE DIHYDROCHLO 0.25 MG TAB PO ONE (16:30)
--- NOTE | 2023-01-22 16:53 | Emergency Department Note ---
Impression & Plan Hyponatremia, Myopathy, Acute confusion, Hallucinations, visual, Polypharmacy ED Provider Note NAME: KIRSTEN BANUELOS AGE: 72 SEX: F ARRIVES VIA: Ambulance INFORMANT: Patient ED PROVIDER(S): Stewart Shaver MD CHIEF COMPLAINT: Visual hallucinations, wweakness. PLAN: Disposition: Admit MEDICAL DECISION MAKING: The patient is a pleasant 72-year-old woman with a past medical history of polymyositis, osteoarthritis, GERD, history of Americo fundoplication duplicatio n, hypertension, hyperlipidemia, hypothyroidism, chronic pain, restless leg syndrome, anxiety who presents emerged department via EMS and then accompanied by her daughters for evaluation of ongoing visual hallucinations since being seen emergency department 2 additional times in the past 24 hours. Patient was initially seen yesterday afternoon for symptoms of burning throughout her body which were suspected to be related to her history of neuropathic pain. She attributed this new pain to recently being started on Lyrica for her chronic neuropathy. To manage her symptoms she was given Ativan and ropinirole as well as diphenhydramine emergency department. She was subsequent discharged home but got up early this morning to eat something and fell suddenly in the Kitchen. She was unable to get up but was able to call for help. She was then seen emergency department had negative CT imaging and laceration repair. The patient's daughter reports that they brought the patient home but even as they were leaving he was hallucinating saying that she thought it had snowed. She urged her mother to return reach department at that moment but she thought she would be okay. Given her symptoms persisted the patient presents for evaluation. On arrival to emergency department patient is anxious appearing but no acute distress, afebrile with blood pressure initially 190s/70s and thus is otherwise stable. She appears euvolemic-dry. She has no focal neurologic deficits. The patient will have intermittent restlessness of her legs but when distracted this resolved. DTRs within normal limits. No clonus. EKG without overt acute ischemia. Chest x-ray negative for acute cardiopulmonary process. WBC 13K nonspecific. H/H and platelets within normal limits. Chemistry without metabolic acidosis. Sodium 125 with osmolality decreased at 268. CPK mildly above normal at 243 in the setting of history of myositis. High-sensitivity troponin 11.4, within normal limits. TSH within normal limits. COVID-19 RNA, FERNANDO test was negative. UA pending. CT of the head and CTA of the head and neck w ere performed and were negative for acute abnormalities. 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 The patient and daughters at bedside agree with plan for admission for further management. Suspect symptoms likely related to the patient's hyponatremia as well as component of polypharmacy. Case was discussed with Cynthia JUAREZ with Dr. Bright, [facility] hospitalist, who will evaluate the patient for admission. Plain films of the right elbow and hip and pelvis were negative for acute fracture. Triage Nursing notes reviewed and agree them. Prior/outside medical records reviewed Vital Signs: reviewed Differential diagnosis: Infection, dehydration, metabolic abnormality, hypo/hyperglycemia, electrolyte disturbance, anemia, hypoxia, cardiac sources, intracerebral event, toxicologic, neurologic, as well as other pathologies. ER treatment provided: See below. Diagnostics interpreted by me: ECG: Normal sinus rhythm, 71 bpm, LVH, regular branch block, nonspecific ST and T wave abnormality, no overt ST elevation or depression, QTc 42, QRS 120 Cardiac Monitoring: An order for continuous cardiac monitoring was placed and demonstrated Normal sinus rhythm, 71 bpm, no ectopy. Laboratory studies: See below Imaging studies: See below Consultation(s): Case was discussed with Cynthia JUAREZ with Dr. Bright, [facility] hospitalist, who will evaluate the patient for admission. HPI: The patient is a pleasant 72-year-old woman with a past medical history of polymyositis, osteoarthritis, GERD, history of Americo fundoplication duplication, hypertension, hyperlipidemia, hypothyroidism, chronic pain, restless leg syndrome, anxiety who presents emerged department via EMS and then accompanied by her daughters for evaluation of ongoing visual hallucinations since being seen emergency department 2 additional times in the past 24 hours. Patient was initially seen yesterday afternoon for symptoms of burning throughout her body which were suspected to be related to her history of neuropathic pain. She attributed this new pain to recently being started on Lyrica for her chronic neuropathy. To manage her symptoms she was given Ativan and ropinirole as well as diphenhydramine emergency department. She was subsequent discharged home but got up early this morning to eat something and fell suddenly in the Kitchen. She was unable to get up but was able to call for help. She was then seen emergency department had negative CT imaging and laceration repair. The patient's daughter reports that they brought the patient home but even as they were leaving he was hallucinating saying that she thought it had snowed. She urged her mother to return reach department at that moment but she thought she would be okay. Given her symptoms persisted the patient presents for evaluation. ROS: See above HPI for pertinent positives & negatives. A total of 10 systems reviewed and were otherwise negative. VITALS:See Below PHYSICAL EXAMINATION: GENERAL: Awake, alert, well-appearing, in no distress HENT: Normocephalic, No new trauma. Oropharynx with dry mucous membranes and otherwise unremarkable. EYES: Normal conjunctiva. Sclera non-icteric. EOMI. No nystamgus. PEARRL. NECK: Supple. No nuchal rigidity. FROM. No JVD. RESPIRATORY: Clear to auscultation. CARDIAC: Regular rate, normal rhythm. Extremities warm and well perfused. Pulses equal. ABDOMEN: Soft, non-distended. No tenderness to palpation. No rebound or guarding. No masses. RECTAL: Deferred. MUSCULOSKELETAL: Chest examination reveals no tenderness. The back is symmetrical on inspection without obvious abnormality. There is no CVA tenderness to palpation. 5cm right hip contusion/hematoma. LOWER EXTREMITIES: Calves are equal size bilaterally and non-tender. No edema. No discoloration. NEURO: Normal sensorium. No focal sensory or motor deficits noted. Intact finger to nose. Intermittent restlessness of her legs but when distracted this resolved. DTRs within normal limits. No clonus. SKIN: No rash or jaundice noted. Stewart Shaver MD Past Med/Surg History Medical History Anemia Anxiety Chronic pain Closed fracture of right distal femur 2019 Depression Diverticulitis Hx, 2018 Dyslipidemia Dysphagia liquids and food, worsening per pt-occasionally choking including waking from sleep choking or coughing Elevated hemidiaphragm right Gastroparesis GERD (gastroesophageal reflux disease) controlled symptoms per pt History of carotid artery disease mild bilateral intracranial ICA stenoses-head MRA 02/2022 History of COVID-19 08/2020, loss taste/smell, body aches, sinus issues > resolved (after sinus surgery) HTN (hypertension) controlled, stable per pt Hx of migraines Hyponatremia Hx Hypothyroidism Interstitial lung disease Follows with Dr. Eid/XANDER Polymyositis MTX Refusal of blood product d/t buddhist beliefs Rhabdomyolysis 2016 suspected r/t recent fall and/or statin use at that time RLS (restless legs syndrome) Surgical History H/O nasal septoplasty H/O total knee replacement Right History of back surgery History of cholecystectomy History of esophagogastroduodenoscopy (EGD) History of Americo fundoplication History of tubal ligation Hx of colonoscopy Hx of squamous cell carcinoma excision Excision (head) Nausea and vomiting after administration of anesthetic agent Years ago, denies needing scop patch Family History Other No significant family history Social History Smoking Status: Never smoker Second Hand Exposure: Yes (as a child); Do You Dip or Chew Tobacco: No; Hx Alcohol Use: No Hx Substance Use: No Preferred Language: Maldivian Communication Ability: Effective Building Operator Required: No Beliefs That Will Affect Care: Mosque Mosque Beliefs: Jehovah's Witnesses - no blood product Current Living Situation: Family Current Living Situation Comment: Lives in a mother in law suite Feels Safe at Home: Yes Safety Concerns: Feels Safe At This Time Assistive Devices: Denture - Upper, Glasses and Walker Allergies Allergies Allergy/AdvReac Type Severity Reaction Status Date / Time morphine AdvReac Severe Low BP Verified 01/14/23 08:35 gabapentin AdvReac Intermediate swelling Verified 01/14/23 08:35 of lower legs lisinopril AdvReac Intermediate Cough Verified 01/14/23 08:35 Home Meds Home Medications Medication Instructions Recorded Confirmed bupropion HCl 150 mg 24 hr tablet, 150 mg PO QAM 07/11/19 01/22/23 extended release (Wellbutrin XL) buspirone 10 mg tablet 20 mg PO TID 07/11/19 01/22/23 calcium carbonate 600 mg calcium 600 mg PO BID 07/11/19 01/22/23 (1,500 mg) tablet (Calcium) cholecalciferol (vitamin D3) 125 5,000 unit PO QAM 07/11/19 01/22/23 mcg (5,000 unit) tablet (Vitamin D3) cyproheptadine 4 mg tablet 8 mg PO HS 07/11/19 01/22/23 docusate sodium 100 mg capsule 100 mg PO AMHS 07/11/19 01/22/23 ferrous sulfate 325 mg (65 mg 325 mg PO Q2D 07/11/19 01/22/23 iron) tablet fluticasone propionate 50 2 spray intranasal HS 07/11/19 01/22/23 mcg/actuation nasal spray,suspension (Flonase Allergy Relief) folic acid 1 mg tablet 1 mg PO QAM 07/11/19 01/22/23 magnesium 250 mg tablet 250 mg PO QAM 07/11/19 01/22/23 methotrexate (PF) 17.5 mg/0.35 mL 17.5 mg subcut Q7D 07/11/19 01/22/23 subcutaneous auto-injector omeprazole 20 mg capsule,delayed 20 mg PO AMHS 07/11/19 01/22/23 release rosuvastatin 5 mg tablet (Crestor) 5 mg PO HS 07/11/19 01/22/23 trazodone 100 mg tablet 100 mg PO HS 06/16/21 01/22/23 atenolol 25 mg tablet 25 mg PO QAM 08/19/22 01/22/23 levothyroxine 88 mcg tablet 88 mcg PO QAM 08/19/22 01/22/23 losartan 50 mg tablet 50 mg PO BID 08/19/22 01/22/23 pramipexole 0.5 mg tablet 0.5 mg PO TID 08/19/22 01/22/23 azelastine 137 mcg (0.1 %) nasal 1 spray intranasal BID 08/22/22 01/22/23 spray aerosol duloxetine 20 mg capsule,delayed 40 mg PO QAM 08/22/22 01/22/23 release (Cymbalta) loratadine 10 mg tablet 10 mg PO DAILY PRN Nasal Congestion 08/22/22 01/22/23 buprenorphine 10 mcg/hour weekly 1 patch transdermal Q7D 01/14/23 01/22/23 transdermal patch amino acids-multivit with iron and 1 tab PO DAILY 01/22/23 01/22/23 minerals tablet aspirin 81 mg tablet,delayed 81 mg PO DAILY 01/22/23 01/22/23 release meclizine 12.5 mg tablet 12.5 mg PO TID PRN Dizziness 01/22/23 01/22/23 ondansetron HCl 4 mg tablet 4 mg PO Q6 PRN Nausea 01/22/23 01/22/23 tizanidine 2 mg tablet 2 - 4 mg PO HS PRN Pain 01/22/23 01/22/23 valacyclovir 500 mg tablet 500 mg PO QAM 01/22/23 01/22/23 Results & Data (ED) Vital Signs Vital Signs - 24 hr 01/22/23 12:31 01/22/23 13:10 01/22/23 13:07 Temperature 36.7 C Temperature Source Oral Pulse Rate 65 74 72 Pulse Rate from SpO2 Sensor 74 Pulse Rhythm Respiratory Rate 18 19 Respiratory Effort / Characteristics Non-Labored Respiratory Depth Normal Blood Pressure 195/78 H 143/85 H Blood Pressure Mean 117 104 Pulse Oximetry 99 97 Oxygen Delivery Method Room Air Sepsis Recent Fever Within 48 Hours No Sepsis New/Unexplained Change in Mental Status No Sepsis Action Taken by Nursing No Action Required 01/22/23 14:06 01/22/23 13:30 01/22/23 14:00 Temperature Temperature Source Pulse Rate 76 75 Pulse Rate from SpO2 Sensor 74 Pulse Rhythm Regular Respiratory Rate 19 22 Respiratory Effort / Characteristics Respiratory Depth Blood Pressure 150/95 H Blood Pressure Mean 113 Pulse Oximetry 97 98 Oxygen Delivery Method Room Air Sepsis Recent Fever Within 48 Hours Sepsis New/Unexplained Change in Mental Status Sepsis Action Taken by Nursing 01/22/23 14:00 01/22/23 14:30 01/22/23 14:31 Temperature Temperature Source Pulse Rate 71 57 L Pulse Rate from SpO2 Sensor 71 57 L Pulse Rhythm Respiratory Rate 19 17 Respiratory Effort / Characteristics Respiratory Depth Blood Pressure 136/98 Blood Pressure Mean 110 Pulse Oximetry 96 99 Oxygen Delivery Method Sepsis Recent Fever Within 48 Hours Sepsis New/Unexplained Change in Mental Status Sepsis Action Taken by Nursing 01/22/23 14:31 Temperature Temperature Source Pulse Rate 78 Pulse Rate from SpO2 Sensor 64 Pulse Rhythm Respiratory Rate 17 Respiratory Effort / Characteristics Respiratory Depth Blood Pressure Blood Pressure Mean Pulse Oximetry 94 Oxygen Delivery Method Sepsis Recent Fever Within 48 Hours Sepsis New/Unexplained Change in Mental Status Sepsis Action Taken by Nursing Laboratory Data Attestation: I reviewed the patient's lab results. 01/22/23 14:00 01/22/23 14:00 Lab Results 01/22/23 01/22/23 01/22/23 Range/Units 14:00 14:00 14:00 WBC 13.05 H (4.8-10.8) K/ul RBC 4.08 L (4.20-5.40) M/uL Hgb 14.1 (12.0-16.0) g/dl Hct 40.1 (37.0-47.0) % MCV 98.3 (80.0-100.0) fL MCH 34.6 H (25.0-34.0) pg MCHC 35.2 (32.0-36.0) g/dL RDW Std Deviation 46.1 (36.4-46.3) fL RDW Coeff of Alo 13.1 (11.5-14.5) % Plt Count 356 (130-400) K/uL MPV 8.4 L (9.4-12.4) fL Immature Gran % (Auto) 0.4 % Neut % (Auto) 75.2 % Lymph % (Auto) 18.6 % Davis % (Auto) 5.4 % Eos % (Auto) 0.2 % Baso % (Auto) 0.2 % Neut # (Auto) 9.82 H (1.40-6.50) K/uL Lymph # (Auto) 2.43 (1.2-3.4) K/uL Davis # (Auto) 0.70 H (0.11-0.59) K/uL Eos # (Auto) 0.02 (0-0.50) K/uL Baso # (Auto) 0.03 (0-0.2) K/uL Immature Gran # (Auto) 0.05 (0.01-0.20) K/uL PT 10.7 (9.0-12.0) Seconds INR 1.0 (0.9-1.1) Sodium 125 L (136-145) mmol/L Potassium 3.8 (3.5-5.1) mmol/L Chloride 92 L (98-107) mmol/L Carbon Dioxide 22 (21-32) mmol/L Anion Gap 11 (3-11) BUN 15 (6-23) mg/dl Creatinine 0.54 L (0.6-1.2) mg/dl Est Cr Clr Drug Dosing 93.2 ml/min Est GFR ( Amer) 110.0 ml/min Est GFR (Non-Af Amer) 94.9 ml/min BUN/Creatinine Ratio 27.8 H (10-20) Glucose 108 H (70-99(Fasting)) mg/dl Osmolality (280-300) mOsm/kg Calcium 9.5 (8.6-10.3) mg/dl Phosphorus 3.2 (2.5-4.9) mg/dl Magnesium 1.9 (1.7-2.4) mg/dl Iron 62 (35-150) mcg/dl Total Bilirubin 0.9 (0.2-1.0) mg/dl AST 27 (13-39) U/L ALT 24 (7-52) U/L Alkaline Phosphatase 70 (34-104) U/L Total Creatine Kinase 243 H (26-192) U/L Troponin I High Sens 11.4 (0-14) pg/ml Total Protein 7.4 (6.0-8.3) gm/dl Albumin 4.4 (3.4-5.0) gm/dl Globulin 3.0 (2.5-4.0) gm/dl Albumin/Globulin Ratio 1.5 (0.9-2) Lipase 26 (11-82) U/L Vitamin B12 (180-914) pg/ml Folate (>5.38) ng/ml TSH (0.300-4.500) uIu/ml SARS-CoV-2, RNA, NAAT (NEGATIVE) 01/22/23 01/22/23 01/22/23 Range/Units 14:00 14:00 14:00 WBC (4.8-10.8) K/ul RBC (4.20-5.40) M/uL Hgb (12.0-16.0) g/dl Hct (37.0-47.0) % MCV (80.0-100.0) fL MCH (25.0-34.0) pg MCHC (32.0-36.0) g/dL RDW Std Deviation (36.4-46.3) fL RDW Coeff of Alo (11.5-14.5) % Plt Count (130-400) K/uL MPV (9.4-12.4) fL Immature Gran % (Auto) % Neut % (Auto) % Lymph % (Auto) % Davis % (Auto) % Eos % (Auto) % Baso % (Auto) % Neut # (Auto) (1.40-6.50) K/uL Lymph # (Auto) (1.2-3.4) K/uL Davis # (Auto) (0.11-0.59) K/uL Eos # (Auto) (0-0.50) K/uL Baso # (Auto) (0-0.2) K/uL Immature Gran # (Auto) (0.01-0.20) K/uL PT (9.0-12.0) Seconds INR (0.9-1.1) Sodium (136-145) mmol/L Potassium (3.5-5.1) mmol/L Chloride (98-107) mmol/L Carbon Dioxide (21-32) mmol/L Anion Gap (3-11) BUN (6-23) mg/dl Creatinine (0.6-1.2) mg/dl Est Cr Clr Drug Dosing ml/min Est GFR ( Amer) ml/min Est GFR (Non-Af Amer) ml/min BUN/Creatinine Ratio (10-20) Glucose (70-99(Fasting)) mg/dl Osmolality 268 L (280-300) mOsm/kg Calcium (8.6-10.3) mg/dl Phosphorus (2.5-4.9) mg/dl Magnesium (1.7-2.4) mg/dl Iron (35-150) mcg/dl Total Bilirubin (0.2-1.0) mg/dl AST (13-39) U/L ALT (7-52) U/L Alkaline Phosphatase (34-104) U/L Total Creatine Kinase (26-192) U/L Troponin I High Sens (0-14) pg/ml Total Protein (6.0-8.3) gm/dl Albumin (3.4-5.0) gm/dl Globulin (2.5-4.0) gm/dl Albumin/Globulin Ratio (0.9-2) Lipase (11-82) U/L Vitamin B12 (180-914) pg/ml Folate (>5.38) ng/ml TSH 1.369 (0.300-4.500) uIu/ml SARS-CoV-2, RNA, NAAT NEGATIVE (NEGATIVE) 05/03/23 Range/Units 14:00 WBC (4.8-10.8) K/ul RBC (4.20-5.40) M/uL Hgb (12.0-16.0) g/dl Hct (37.0-47.0) % MCV (80.0-100.0) fL MCH (25.0-34.0) pg MCHC (32.0-36.0) g/dL RDW Std Deviation (36.4-46.3) fL RDW Coeff of Alo (11.5-14.5) % Plt Count (130-400) K/uL MPV (9.4-12.4) fL Immature Gran % (Auto) % Neut % (Auto) % Lymph % (Auto) % Davis % (Auto) % Eos % (Auto) % Baso % (Auto) % Neut # (Auto) (1.40-6.50) K/uL Lymph # (Auto) (1.2-3.4) K/uL Davis # (Auto) (0.11-0.59) K/uL Eos # (Auto) (0-0.50) K/uL Baso # (Auto) (0-0.2) K/uL Immature Gran # (Auto) (0.01-0.20) K/uL PT (9.0-12.0) Seconds INR (0.9-1.1) Sodium (136-145) mmol/L Potassium (3.5-5.1) mmol/L Chloride (98-107) mmol/L Carbon Dioxide (21-32) mmol/L Anion Gap (3-11) BUN (6-23) mg/dl Creatinine (0.6-1.2) mg/dl Est Cr Clr Drug Dosing ml/min Est GFR ( Amer) ml/min Est GFR (Non-Af Amer) ml/min BUN/Creatinine Ratio (10-20) Glucose (70-99(Fasting)) mg/dl Osmolality (280-300) mOsm/kg Calcium (8.6-10.3) mg/dl Phosphorus (2.5-4.9) mg/dl Magnesium (1.7-2.4) mg/dl Iron (35-150) mcg/dl Total Bilirubin (0.2-1.0) mg/dl AST (13-39) U/L ALT (7-52) U/L Alkaline Phosphatase (34-104) U/L Total Creatine Kinase (26-192) U/L Troponin I High Sens (0-14) pg/ml Total Protein (6.0-8.3) gm/dl Albumin (3.4-5.0) gm/dl Globulin (2.5-4.0) gm/dl Albumin/Globulin Ratio (0.9-2) Lipase (11-82) U/L Vitamin B12 454 (180-914) pg/ml Folate > 22.30 (>5.38) ng/ml TSH (0.300-4.500) uIu/ml SARS-CoV-2, RNA, NAAT (NEGATIVE) Administered Medications Buprenorphine HCl (Buprenorphine 5 Mcg/Hr Tdsy) 10 mcg TD Q7D@1900 [facility] Stop: 02/21/23 19:29 Last Admin: 01/22/23 20:25 Dose: 10 mcg Documented By: [id number] Bupropion HCl (Bupropion Xl 150 Mg Tabcr) 150 mg PO QAM [facility] Stop: 02/21/23 18:02 Last Admin: 01/22/23 18:49 Dose: 150 mg Documented By: NMS Buspirone HCl (Buspirone 5 Mg Tab) 20 mg PO TID [facility] Stop: 02/21/23 20:59 Last Admin: 01/22/23 20:25 Dose: 20 mg Documented By: [id number] Calcium Carbonate (Calcium Carbonate 1250mg Tab) 1,250 mg PO BID [facility] Stop: 02/21/23 20:59 Last Admin: 01/22/23 20:26 Dose: 1,250 mg Documented By: [id number] Cyproheptadine HCl (Cyproheptadine Hcl 4 Mg Tab) 8 mg PO HS [facility] Stop: 02/21/23 20:59 Last Admin: 01/22/23 20:27 Dose: 8 mg Documented By: [id number] Docusate Sodium (Docusate Sodium 100 Mg Cap) 100 mg PO AMHS [facility] [place] Stop: 02/21/23 20:59 Last Admin: 01/22/23 20:29 Dose: 100 mg Documented By: [id number] Duloxetine HCl (Duloxetine Hcl 20 Mg Cap) 40 mg PO QAM [facility] Stop: 02/21/23 18:02 Last Admin: 01/22/23 18:50 Dose: 40 mg Documented By: ASCENCION Enoxaparin Sodium (Enoxaparin Inj 40 Mg/0.4 Ml Syr) 40 mg SQ Q24H [facility] Stop: 02/21/23 18:02 Last Admin: 01/22/23 18:50 Dose: 40 mg Documented By: ASCENCION Ferrous Sulfate (Ferrous Sulfate 325 Mg Tab) 325 mg PO Q2D@0900 [facility] Stop: 02/21/23 18:14 Last Admin: 01/22/23 18:50 Dose: 325 mg Documented By: ASCENCION Losartan Potassium (Losartan Potassium 50 Mg Tab) 50 mg PO BID [facility] Stop: 02/21/23 20:59 Last Admin: 01/22/23 20:28 Dose: 50 mg Documented By: [id number] Multivitamins/Minerals (Cerovite Adv Formula Tab) 1 tab PO [facility] Stop: 02/21/23 21:29 Last Admin: 01/22/23 22:00 Dose: 1 tab Documented By: [id number] Pantoprazole Sodium (Pantoprazole 40 Mg Tab) 40 mg PO AMHS [facility] Stop: 02/21/23 20:59 Last Admin: 01/22/23 20:29 Dose: 40 mg Documented By: [id number] Pramipexole Dihydrochloride (Pramipexole Dihydrochlo 0.5 Mg Tab) 0.5 mg PO TID [facility] Stop: 02/21/23 20:59 Last Admin: 01/22/23 20:30 Dose: 0.5 mg Documented By: [id number] Rosuvastatin Calcium (Rosuvastatin Calcium 5 Mg Tab) 5 mg PO [facility] Stop: 02/21/23 20:59 Last Admin: 01/22/23 20:30 Dose: 5 mg Documented By: [id number] Trazodone HCl (Trazodone Hcl 100 Mg Tab) 100 mg PO [facility] Stop: 02/21/23 20:59 Last Admin: 01/22/23 20:32 Dose: 100 mg Documented By: [id number] Discontinued Medications Sodium Chloride (Nss 1000ml) 1,000 mls @ 999 mls/hr IV .Q1H1M [facility] Stop: 01/22/23 15:00 Last Infusion: 01/22/23 16:52 Dose: 0 mls/hr Documented By: Admin: 01/22/23 14:13 Dose: 999 mls/hr Documented By: JOSE MARTIN Ioversol (Optiray 320 100ml) 116 ml IV ONCE ONE Stop: 01/22/23 15:18 Last Admin: 01/22/23 15:18 Dose: 116 ml Documented By: MAI Potassium Chloride (Potassium Chloride Pwd 20 Meq Pack) 40 meq PO NOW STA Stop: 01/23/23 00:23 Last Admin: 01/23/23 00:56 Dose: 40 meq Documented By: [id number] Pramipexole Dihydrochloride (Pramipexole Dihydrochlo 0.25 Mg Tab) 0.25 mg PO ONE ONE Stop: 01/22/23 16:31 Last Admin: 01/22/23 17:41 Dose: 0.25 mg Documented By: RSL Imaging Data Radiologist's Impression: Head CT 01/22/23 13:54 CT OF THE HEAD WITHOUT CONTRAST CLINICAL HISTORY: confusion, hallucinations COMPARISON STUDY: Head CT January 22, 2023 and March 12, 2015. TECHNIQUE: Helical axial images of the head were obtained without IV contrast. Automated exposure control was utilized for the study. A dose lowering techni que was utilized adhering to the principles of ALARA. FINDINGS: No acute intracranial hemorrhage, midline shift or mass effect is present. The ventricular system is unremarkable. The basal cisterns are patent. No extra-axial collections are present. There are no findings to suggest acute dural sinus thrombosis or acute territorial infarct. Left posterior scalp contusion is again noted. There are skin saul. There is no acute calvarial fracture. Mucosal thickening of the left maxillary sinus is noted. A small amount of fluid within the left mastoid air cells is present. IMPRESSION: 1. No acute intracranial findings. 2. Left posterior scalp contusion. No acute calvarial fracture. ACT 112: Negative or not required by law. Electronically signed by: Ahsan Mejia M.D. 01/22/2023 3:40 PM Head CTA 01/22/23 13:54 HEAD CTA HISTORY: confusion, hallucinations TECHNIQUE: Multiaxial CT images of the head were performed both before and after the intravenous administration of contrast to evaluate the major cerebral vessels. Maximum intensity projection images were also obtained. A dose lowering technique was utilized adhering to the principles of ALARA. COMPARISON: Head CT 01/22/2023. FINDINGS: Left posterior scalp swelling is again noted with associated sutures. Moderate mucosal thickening within the left maxillary sinus. There is partial opacification of the left ethmoid air cells. The major dural venous sinuses are patent. 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 This is likely developmental. There is a 3 mm saccular aneurysm within the right cervical internal carotid artery. Visualized intracranial internal carotid arteries, distal vertebral arteries, and basilar artery are widely patent. There is no significant stenosis, occlusion, or aneurysm seen within the bilateral ACAs, MCAs, or director of residence life. IMPRESSION: 1. No significant stenosis, occlusion, or aneurysm within the [place]. 2. 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 3. Left posterior scalp swelling again noted. ACT 112: Negative or not required by law. Electronically signed by: Cheng Hoover M.D. 01/22/2023 3:55 PM Neck CTA 01/22/23 13:54 CT ANGIOGRAM OF THE NECK CLINICAL HISTORY: Change in mental status. Hallucinations. COMPARISON STUDY: CT of the cervical spine dated 03/12/2015 TECHNIQUE: Following the IV administration of 116 of Optiray 320, CT angiogram of the neck was performed from the aortic arch to the skull base. Images are reviewed in the axial, sagittal, and coronal planes. 3-D MIPS images are created and assessed. IV contrast was administered without complication. All measurements were calculated based on NASCET criteria. A dose lowering technique was utilized adhering to the principles of ALARA. CT DOSE: 963.47 mGy.cm FINDINGS: Thoracic aorta: Visualized portions of the thoracic aorta are normal in caliber. The aortic arch demonstrates standard 3-vessel anatomy. Right carotid arterial system: The right common carotid artery is widely patent, as are the right internal and external carotid arteries. Calcified plaque is noted in the carotid bulb. The internal carotid artery demonstrates a beaded appearance suggesting fibromuscular dysplasia. Left carotid arterial system: The left common carotid artery is widely patent, as are the left internal and external carotid arteries. Calcified plaque is noted in the carotid bulb. Vertebral arteries: The vertebral arteries are widely patent bilaterally and codominant. Subclavian arteries: Widely patent bilaterally. Intracranial vasculature: The visualized intracranial vessels at the skull base appear patent. Jugular veins: Widely patent bilaterally. Brain parenchyma: The visualized brain parenchyma the skull base is within normal limits. Lung apices: Partially visualized upper lobe lung parenchyma appears clear. Soft tissues: The visualized pharyngeal soft tissues are normal in appearance noting angiographic phase technique. The oropharyngeal airway appears widely patent. The salivary and thyroid glands are normal in appearance. No cervical lymphadenopathy is seen. Skeletal structures: The skeletal structures are osteopenic. The visualized calvarium at the skull base appears intact. The imaged cervical spine is maintained. No lytic or blastic lesion is seen. Sinuses and mastoids: There is evidence of previous paranasal sinus surgery. There is moderate mucosal thickening and fluid within the left maxillary antrum. Mucosal thickening is also seen within the left ethmoid and frontal sinuses. There is a small left mastoid effusion. The right mastoid air cells are clear. IMPRESSION: 1. The internal carotid arteries demonstrate a beaded appearance bilaterally suggesting fibromuscular dysplasia. 2. Otherwise normal CT angiogram of the neck. The carotid and vertebral arteries are patent bilaterally. ACT 112: Negative or not required by law. Electronically signed by: Sd Sutherland M.D. 01/22/2023 3:48 PM Chest X-Ray 01/22/23 13:56 SINGLE VIEW CHEST CLINICAL HISTORY: Generalized weakness. FINDINGS: An AP, portable, upright chest radiograph is compared to study dated 07/04/2021. The cardiomediastinal silhouette is unremarkable noting atherosclerotic calcification of the thoracic aorta. The lungs and pleural spaces are clear noting bibasilar atelectasis. No pneumothorax is seen. The skeletal structures are osteopenic. The bony thorax is grossly intact. Cholecystectomy clips are seen in the right upper quadrant. IMPRESSION: No active disease in the chest. ACT 112: Negative or not required by law. Electronically signed by: Sd Sutherland M.D. 01/22/2023 2:30 PM Hip/Pelvis X-Ray 01/22/23 15:45 SINGLE VIEW PELVIS; 2 VIEWS RIGHT HIP CLINICAL HISTORY: Fall. Pain. FINDINGS: An AP view of the pelvis with AP and frog-leg views of the right hip are correlated with pelvic CT dated 09/14/2012. The skeletal structures are osteopenic. There is no radiographic evidence of acute fracture involving the hips or bony pelvis. Mild arthritic change and joint space narrowing is seen in the hips. Degenerative sclerosis is noted in the sacroiliac joints and pubic symphysis. Postoperative and spondylotic change is noted in the lumbar spine. Excreted IV contrast fills the bladder. Soft tissue contusion is suggested overlying the right proximal femur. IMPRESSION: No acute bony abnormality is identified. Electronically signed by: Sd Sutherland M.D. 01/22/2023 5:08 PM Discharge Plan Visit Data Chief Complaint: Neuro Symptoms/Deficit Stated Complaint: thinks hallucinating from lyrica ED Provider: Stewart Shaver Discharge Problem: Hyponatremia, Myopathy, Acute confusion, Hallucinations, visual, Polypharmacy Patient Disposition: Admitted As Inpatient Discharge Instructions Interventions: ED Discharge Assessment Last Done: 01/22/23 17:50
--- NOTE | 2023-01-22 17:10 | XRay Report ---
SINGLE VIEW PELVIS; 2 VIEWS RIGHT HIP CLINICAL HISTORY: Fall. Pain. FINDINGS: An AP view of the pelvis with AP and frog-leg views of the right hip are correlated with pe lvic CT dated 09/14/2012. The skeletal structures are osteopenic. There is no radiographic evidence o f acute fracture involving the hips or bony pelvis. Mild arthritic change and joint space narrowing i s seen in the hips. Degenerative sclerosis is noted in the sacroiliac joints and pubic symphysis. Pos toperative and spondylotic change is noted in the lumbar spine. Excreted IV contrast fills the bladde r. Soft tissue contusion is suggested overlying the right proximal femur. IMPRESSION: No acute bony abnormality is identified. Electronically signed by: Sd Sutherland M.D. 01/22/2023 5:08 PM
--- NOTE | 2023-01-22 17:18 | History & Physical Report ---
Date of Service January 22, 2023 Assessment & Plan (1) Hyponatremia: Plan: Admit to tele Patient presenting from home (3 ED visits in 24 hours) for falls and AMS. In the ED, Na+ 125 (138 on 12/20/22 on outpt labs) Patient reports poor PO intake the past few days. Received 1L NSS in ED. Await urine and serum osmolality, urine sodium before ordering additional IVF. 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 Patient reports compliance with 1.5 L fluid restriction. Noted that patient is on bupropion and trazodone however these are not new medications to her and seem to be crucial to her mental health stability. Will continue for now. 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 Correct sodium, monitor response Fall precautions (5) Chronic pain: (6) RLS (restless legs syndrome): Plan: Seems to be flaring now due to patient not receiving any medications in the past 24 hours Check iron, Vit B12, folate Continue home dose pramipexole Noted the patient has been trialed on Requip in the past and has been ineffective. Gabapentin caused lower extremity edema. On Butrans patch Recently trialed on Lyrica however caused side effects. Continue Cymbalta (7) Anxiety: (8) Depression: Plan: Follows closely with psychiatry Continue home meds --duloxetine, BuSpar, trazodone, cyproheptadine (9) Polymyositis: Plan: On methotrexate (10) HTN (hypertension): Plan: BP controlled, continue losartan and atenolol (11) Hypothyroidism: Plan: TSH 1.369 Continue with thyroxine DVT PROPHYLAXIS SQ Lovenox Patient seen in collaboration with Dr. Bright. I spent a total of 90 minutes coordinating, documenting, and providing care for this patient excluding time spent in the performance of separately billed services. This included personally reviewing all current laboratories and imaging studies, medication reconciliation, outpatient chart review, and discussion with specialists. History of Present Illness Chief Complaint: Fall, weakness, confusion Primary Care Provider: Uma Mark DO 72-year-old female with PMH hypothyroidism, interstitial lung disease, HTN, GERD s/p Americo fundoplication, polymyositis on methotrexate, osteoarthritis, chronic pain, RLS, depression, anxiety, and other problems listed below who presents to the ED for evaluation of fall, weakness, confusion. History obtained from patient and daughters at the bedside as well as review of outpatient PCP, rheumatology, pain management notes. Patient initially seen in the ED last evening for complaints of a generalized burning sensation over her entire body. Patient felt that the symptoms came on after starting Lyrica recently. Patient was given Benadryl and Ativan and discharged home. Daughter states that on the way home, patient was hallucinating. Shortly after arriving home, patient suffered a fall and struck her head. She was brought back to the ED and had saul placed. Patient was discharged home once again and had another fall upon returning home. Daughter also noted her to be confused and hallucinating. Patient brought back to the ED for further evaluation. Patient with a longstanding history of chronic pain, anxiety, depression on several medications and history of trialing several different medications. Patient has not had any medications for the past 24 hours. Patient notes decreased oral intake over the past few days due to the side effects of Lyrica. She denies abdominal pain, nausea, vomiting, diarrhea. No chest pain or shortness of breath. She denies lightheadedness, dizziness, diaphoresis, syncopal events. No other recent illnesses, fevers, chills. She denies urinary symptoms. Reports increased anxiety and RLS symptoms over the past few weeks. In the ED, labs show Na+ 125. Head CT, head and neck CTAs unremarkable. Patient was given 1 L NSS. Allergies Allergy/AdvReac Type Severity Reaction Status Date / Time morphine AdvReac Severe Low BP Verified 01/14/23 08:35 gabapentin AdvReac Intermediate swelling Verified 01/14/23 08:35 of lower legs lisinopril AdvReac Intermediate Cough Verified 01/14/23 08:35 Home Medications Medication Instructions Recorded Confirmed Type bupropion HCl 150 mg 24 hr tablet, 150 mg PO QAM 07/11/19 01/22/23 History extended release (Wellbutrin XL) buspirone 10 mg tablet 20 mg PO TID 07/11/19 01/22/23 History calcium carbonate 600 mg calcium 600 mg PO BID 07/11/19 01/22/23 History (1,500 mg) tablet (Calcium) cholecalciferol (vitamin D3) 125 5,000 unit PO QAM 07/11/19 01/22/23 History mcg (5,000 unit) tablet (Vitamin D3) cyproheptadine 4 mg tablet 8 mg PO HS 07/11/19 01/22/23 History docusate sodium 100 mg capsule 100 mg PO AMHS 07/11/19 01/22/23 History ferrous sulfate 325 mg (65 mg 325 mg PO Q2D 07/11/19 01/22/23 History iron) tablet fluticasone propionate 50 2 spray intranasal HS 07/11/19 01/22/23 History mcg/actuation nasal spray,suspension (Flonase Allergy Relief) folic acid 1 mg tablet 1 mg PO QAM 07/11/19 01/22/23 History magnesium 250 mg tablet 250 mg PO QAM 07/11/19 01/22/23 History methotrexate (PF) 17.5 mg/0.35 mL 17.5 mg subcut Q7D 07/11/19 01/22/23 History subcutaneous auto-injector omeprazole 20 mg capsule,delayed 20 mg PO AMHS 07/11/19 01/22/23 History release rosuvastatin 5 mg tablet (Crestor) 5 mg PO HS 07/11/19 01/22/23 History trazodone 100 mg tablet 100 mg PO HS 06/16/21 01/22/23 History atenolol 25 mg tablet 25 mg PO QAM 08/19/22 01/22/23 History levothyroxine 88 mcg tablet 88 mcg PO QAM 08/19/22 01/22/23 History losartan 50 mg tablet 50 mg PO BID 08/19/22 01/22/23 History pramipexole 0.5 mg tablet 0.5 mg PO TID 08/19/22 01/22/23 History azelastine 137 mcg (0.1 %) nasal 1 spray intranasal BID 08/22/22 01/22/23 History spray aerosol duloxetine 20 mg capsule,delayed 40 mg PO QAM 08/22/22 01/22/23 History release (Cymbalta) loratadine 10 mg tablet 10 mg PO DAILY PRN Nasal Congestion 08/22/22 01/22/23 History buprenorphine 10 mcg/hour weekly 1 patch transdermal Q7D 01/14/23 01/22/23 History transdermal patch amino acids-multivit with iron and 1 tab PO DAILY 01/22/23 01/22/23 History minerals tablet aspirin 81 mg tablet,delayed 81 mg PO DAILY 01/22/23 01/22/23 History release meclizine 12.5 mg tablet 12.5 mg PO TID PRN Dizziness 01/22/23 01/22/23 History ondansetron HCl 4 mg tablet 4 mg PO Q6 PRN Nausea 01/22/23 01/22/23 History tizanidine 2 mg tablet 2 - 4 mg PO HS PRN Pain 01/22/23 01/22/23 History valacyclovir 500 mg tablet 500 mg PO QAM 01/22/23 01/22/23 History Past Med/Surg History Medical History (Updated 01/22/23 @ 17:28 by LARRY Buitrago) Anemia Anxiety Chronic pain Closed fracture of right distal femur 2019 Depression Diverticulitis Hx, 2018 Dyslipidemia Dysphagia liquids and food, worsening per pt-occasionally choking including waking from sleep choking or coughing Elevated hemidiaphragm right Gastroparesis GERD (gastroesophageal reflux disease) controlled symptoms per pt History of carotid artery disease mild bilateral intracranial ICA stenoses-head MRA 02/2022 History of COVID-19 08/2020, loss taste/smell, body aches, sinus issues > resolved (after sinus surgery) HTN (hypertension) controlled, stable per pt Hx of migraines Hyponatremia Hx Hypothyroidism Interstitial lung disease Follows with Dr. Eid/Hazel Polymyositis MTX Refusal of blood product d/t congregation beliefs Rhabdomyolysis 2016 suspected r/t recent fall and/or statin use at that time RLS (restless legs syndrome) Surgical History H/O nasal septoplasty H/O total knee replacement Right History of back surgery History of cholecystectomy History of esophagogastroduodenoscopy (EGD) History of Americo fundoplication History of tubal ligation Hx of colonoscopy Hx of squamous cell carcinoma excision Excision (head) Nausea and vomiting after administration of anesthetic agent Years ago, denies needing scop patch Family History Other No significant family history Social History Smoking Status: Never smoker Second Hand Exposure: Yes (as a child); Do You Dip or Chew Tobacco: No; Hx Alcohol Use: Yes Hx Substance Use: No Preferred Language: Yemeni Communication Ability: Effective 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 Beliefs That Will Affect Care: Roman Catholic Roman Catholic Beliefs: Mormon Current Living Situation: Other Current Living Situation Comment: lives in her own apt in dtr's basement Feels Safe at Home: Yes Assistive Devices: Walker Review of Systems Review of Systems: ROS per HPI, all other systems reviewed and negative Physical Exam Constitutional: WD/WN, vitals as above constant jerking movements of the BL legs Eyes: PERRL, conjunctivae normal, anicteric sclerae ENMT: external ear and nose normal, oropharynx normal Respiratory: normal respiratory effort, lungs clear to auscultation Cardiovascular: Rate/Rhythm: regular rate and regular rhythm Vessels: normal peripheral pulses Extremities: no edema Gastrointestinal (Abdomen): normal bowel sounds, soft, nontender, no hepatosplenomegaly Musculoskeletal: no cyanosis or clubbing, extremities motor strength 5/5 Skin: no rashes, warm and dry 3 saul noted to right parietal area on head Neurologic: PERRL, EOMI, accommodation nl, no face palsy, no dysarthria Psychiatric: Orientation: alert and oriented x 3 Affect: + anxious affect and + flat affect Results & Data Results & Data Vital Signs (Past 12 Hours) Vital Signs Temp Pulse Resp BP Pulse Ox O2 Del Method 01/22/23 14:31 78 17 94 01/22/23 14:31 136/98 01/22/23 14:30 57 L 17 99 01/22/23 14:00 71 19 96 01/22/23 14:00 150/95 H 01/22/23 13:30 75 22 98 01/22/23 14:06 76 19 97 Room Air 01/22/23 13:07 72 19 143/85 H 97 01/22/23 13:10 74 01/22/23 12:31 36.7 C 65 18 195/78 H 99 Room Air Laboratory Results Short CBC 01/22/23 Range/Units 14:00 WBC 13.05 H (4.8-10.8) K/ul Hgb 14.1 (12.0-16.0) g/dl Hct 40.1 (37.0-47.0) % Plt Count 356 (130-400) K/uL BMP 01/22/23 14:00 Sodium 125 L Potassium 3.8 Chloride 92 L Carbon Dioxide 22 BUN 15 Creatinine 0.54 L Glucose 108 H Calcium 9.5 Cardiac Enzymes 01/22/23 Range/Units 14:00 Total Creatine Kinase 243 H (26-192) U/L Liver Function 01/22/23 Range/Units 14:00 Total Bilirubin 0.9 (0.2-1.0) mg/dl AST 27 (13-39) U/L ALT 24 (7-52) U/L Alkaline Phosphatase 70 (34-104) U/L Albumin 4.4 (3.4-5.0) gm/dl Code Status & VTE Plan VTE Prophylaxis Plan VTE Prophylaxis will be ordered: Yes Supervising Physician Co-Signing Physician Notes Attending addendum: The patient was seen and examined in telemetry unit in presence of the daughter This is her third visit to the emergency room within about 12 hours timeframe- please see H&P for details She was noted to have hyponatremia and has been complaining of hallucination since about yesterday and admits to taking Lyrica since 01/17 and has been feeling generally fiery as per the patient She has been having diarrhea as well for the last 3 days and has had about 3 or 4 loose bowel movements for the last 3 days Generally weak and lethargic and has loss of taste and loss of appetite with visual hallucination as well Denies any more hallucination during examination but complains to weakness On examination No apparent distress at rest but very anxious Clearly has restless legs Hemodynamically stable Chest-clear to auscultate bilaterally Heart-S1, I2tsojose Abdomen-benign Extremities-trace edema bilaterally 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 No more hallucination during my examination. Moving all limbs equally and has restless legs Her admission labs, EKG and imaging studies reviewed Noted to have hyponatremia with a sodium of 124, white count minimally elevated likely secondary to his stress Received 1 L of fluid to correct possible dehydration and was admitted to telemetry unit for continuation of care Her serum osmolarity is little bit low at 268 and urine osmolality and electrolytes are pending We will monitor serum sodium and other electrolytes Nephrology has been consulted We will continue her home medications for restless leg syndrome and hold Lyrica Agree with assessment plan as outlined above by Cynthia Bright (10) HTN (hypertension) Hypertension type: unspecified secondary hypertension Qualified Code(s): I15.9 - Secondary hypertension, unspecified
[2023-01-22] MEDS ORDERED: tiZANidine HCL 4 MG TABLET PO PRN (18:03)
[2023-01-22] MEDS ORDERED: ACETAMINOPHEN 325 MG TAB PO PRN (18:03)
[2023-01-22 18:11] LABS: Vitamin B12 454 pg/ml (180-914)
--- NOTE | 2023-01-22 18:45 | XRay Report ---
XR elbow RT min 3V routine CLINICAL HISTORY: Right elbow pain following fall. COMPARISON: None FINDINGS: An IV within the antecubital fossa is incidentally noted. Alignment of the right elbow is anatomic. There is no acute fracture. No definite evidence for joint effusion. IMPRESSION: No acute fracture. No evidence for a right elbow joint effusion. ACT 112: Negative or not required by law. Electronically signed by: Ahsan Mejia M.D. 01/22/2023 6:43 PM
[2023-01-22] MEDS: buPROPion XL 150 MG TABCR PO SCH (18:49)
[2023-01-22] MEDS: FERROUS SULFATE 325 MG TAB PO SCH (18:50)
[2023-01-22] MEDS: DULoxetine HCL 20 MG CAP PO SCH (18:50)
[2023-01-22] MEDS: ENOXAPARIN INJ 40 MG/0.4 ML SYR SQ SCH (18:50)
[2023-01-22] MEDS ORDERED: BUPRENORPHINE 5 MCG/HR TDSY TD SCH (19:30)
[2023-01-22] MEDS: busPIRone 5 MG TAB PO SCH (20:25)
[2023-01-22] MEDS: CALCIUM CARBONATE 1250MG TAB PO SCH (20:26)
[2023-01-22] MEDS: CYPROHEPTADINE HCL 4 MG TAB PO SCH (20:27)
[2023-01-22] MEDS: LOSARTAN POTASSIUM 50 MG TAB PO SCH (20:28)
[2023-01-22] MEDS: PANTOprazole 40 MG TAB PO SCH (20:29)
[2023-01-22] MEDS: DOCUSATE SODIUM 100 MG CAP PO SCH (20:29)
[2023-01-22] MEDS: ROSUVASTATIN CALCIUM 5 MG TAB PO SCH (20:30)
[2023-01-22] MEDS: PRAMIPEXOLE DIHYDROCHLO 0.5 MG TAB PO SCH (20:30)
[2023-01-22] MEDS: traZODone HCL 100 MG TAB PO SCH (20:32)
[2023-01-22 21:55] LABS: Calcium 8.5 mg/dl (8.6-10.3); Creatinine Clr Calc Pharmacy 120.2 ml/min; Est GFR (African American) 119.5 ml/min; Est GFR (Non-African American) 103.1 ml/min; Potassium 3.4 mmol/L (3.5-5.1)
[2023-01-22] MEDS: CEROVITE ADV FORMULA TAB PO SCH (22:00)
[2023-01-23] MEDS ORDERED: POTASSIUM CHLORIDE PWD 20 MEQ PACK PO STA (00:22)
[2023-01-23] MEDS: LEVOTHYROXINE SODIUM 88 MCG TABLET PO SCH (06:29)
[2023-01-23 06:30] LABS: Hematocrit (blood only) 34.1 % (37.0-47.0); Hemoglobin 11.8 g/dl (12.0-16.0); Mean Corpuscular Hemoglobin 34.5 pg (25.0-34.0); Mean Corpuscular Hgb Conc 34.6 g/dL (32.0-36.0); Mean Corpuscular Volume 99.7 fL (80.0-100.0); Mean Platelet Volume 8.1 fL (9.4-12.4); Platelet Count 284 K/uL (130-400); RDW Coefficient of Variation 13.5 % (11.5-14.5); RDW Standard Deviation 49.1 fL (36.4-46.3); Red Blood Count 3.42 M/uL (4.20-5.40); White Blood Count 9.82 K/ul (4.8-10.8)
[2023-01-23 06:47] LABS: BUN Creatinine Ratio 26.7 (10-20); Calcium 8.7 mg/dl (8.6-10.3); Creatinine Clr Calc Pharmacy 112.4 ml/min; Est GFR (African American) 116.8 ml/min; Est GFR (Non-African American) 100.8 ml/min; Potassium 4.5 mmol/L (3.5-5.1)
[2023-01-23] MEDS: ASPIRIN 81 MG ECTAB PO SCH (07:58)
[2023-01-23] MEDS: MAGNESIUM OXIDE 400 MG TAB PO SCH (07:58)
[2023-01-23] MEDS: ATENOLOL 25 MG TABLET PO SCH (07:59)
[2023-01-23] MEDS: busPIRone 5 MG TAB PO SCH ×3 (07:59→21:22)
[2023-01-23] MEDS: DULoxetine HCL 20 MG CAP PO SCH (07:59)
[2023-01-23] MEDS: CHOLECALCIFEROL 5,000 UNITS 125 MCG TAB PO SCH (07:59)
[2023-01-23] MEDS: valACYclovir HCL 500 MG TABLET PO SCH (07:59)
[2023-01-23] MEDS: buPROPion XL 150 MG TABCR PO SCH (07:59)
[2023-01-23] MEDS: PRAMIPEXOLE DIHYDROCHLO 0.5 MG TAB PO SCH ×3 (08:00→21:29)
[2023-01-23] MEDS: DOCUSATE SODIUM 100 MG CAP PO SCH ×2 (08:00→21:26)
[2023-01-23] MEDS: LOSARTAN POTASSIUM 50 MG TAB PO SCH ×2 (08:00→21:26)
[2023-01-23] MEDS: FOLIC ACID 1 MG TAB PO SCH (08:00)
[2023-01-23] MEDS: PANTOprazole 40 MG TAB PO SCH ×2 (08:00→21:28)
[2023-01-23] MEDS: CALCIUM CARBONATE 1250MG TAB PO SCH ×2 (08:00→21:24)
--- NOTE | 2023-01-23 09:11 | Hospitalist Progress Note ---
Date of Service January 23, 2023 Assessment & Plan (1) Hyponatremia: Plan: per admitting service notes with addendum: Patient presenting from home (3 ED visits in 24 hours) for falls and AMS. In the ED, Na+ 125 (138 on 12/20/22 on outpt labs) Patient reports poor PO intake the past few days. Received 1L NSS in ED. Await urine and serum osmolality, urine sodium before ordering additional IVF. 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 Patient reports compliance with 1.5 L fluid restriction. Noted that patient is on bupropion and trazodone however these are not new medications to her and seem to be crucial to her mental health stability. Will continue for now. 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 Correct sodium, monitor response Fall precautions 5/4 d/c Lyrica no neurologic symptoms continue to monitor (5) Chronic pain: (6) RLS (restless legs syndrome): Plan: Seems to be flaring now due to patient not receiving any medications in the past 24 hours Check iron, Vit B12, folate Continue home dose pramipexole Noted the patient has been trialed on Requip in the past and has been ineffective. Gabapentin caused lower extremity edema. On Butrans patch Recently trialed on Lyrica however caused side effects. Continue Cymbalta 5/4 stable (7) Anxiety: (8) Depression: Plan: Follows closely with psychiatry Continue home meds --duloxetine, BuSpar, trazodone, cyproheptadine 5/4 stable (9) Polymyositis: Plan: On methotrexate (10) HTN (hypertension): Plan: BP controlled, continue losartan and atenolol (11) Hypothyroidism: Plan: TSH 1.369 Continue with thyroxine DVT PROPHYLAXIS SQ Lovenox Disposition PT/OT evaluation pending lives with daughter plan of care discussed with patient in detail and at length all questions answered she is understanding, agreeable, comfortable with the plan of care Admission and Anticipated Discharge Date Admission Date: January 22, 2023 Subjective ff up for hyponatremia, etc seen resting in bed, sitting up comfortable, in good spirits states she feels better compared to yesterday feels sleepy denies weakness, headache, nausea, chest pain, dyspnea, abdominal pain no burning sensation, no pain no other symptoms Review of Systems Review of Systems: all noted and negative except for above Physical Exam Physical Exam: General- oriented x 3, not in distress, speaks in sentences with no effort or accessory muscle use Eyes- anicteric Neck- no JVD Lungs- clear BS bilaterally Heart- normal rate, regular rhythm, no murmurs Abdomen- normal bowel sounds, nondistended, soft, nontender Extremities- no pretibial edema, no calf tenderness Neuro- alert, oriented x 3; no gross focal neurologic deficits Skin- warm & dry Results & Data Results & Data Vital Signs (Past 12 Hours) Vital Signs Temp Pulse Pulse Resp BP Pulse Ox O2 Del Method 01/23/23 08:00 Room Air 01/23/23 07:33 36.4 C L 72 18 148/78 H 96 Room Air 01/23/23 03:08 36.9 C 74 19 95/65 L 95 Room Air 01/22/23 22:07 69 01/22/23 23:17 36.9 C 75 18 131/76 94 Room Air 01/22/23 21:18 Room Air all noted and reviewed including below (10) HTN (hypertension) Hypertension type: unspecified secondary hypertension Qualified Code(s): I15.9 - Secondary hypertension, unspecified
[2023-01-23 14:05] LABS: Appearance Urine Clear (Clear); Bacteria Urine Automated Negative (Negative); Bilirubin Urine Negative (Negative); Blood Urine Negative (Negative); Color Urine Dark Yellow; Glucose Urine UA Negative (Negative); Ketones Urine Negative (Negative); Leukocyte Esterase Urine 2+ (Negative); Nitrite Urine Negative (Negative); Protein Urine Negative (Negative); RBC Urine Automated 0-4 /hpf (0-4); Specific Gravity Urine 1.029 (1.000-1.030); Urobilinogen Urine Negative (Negative)
[2023-01-23] MEDS ORDERED: SODIUM CHLORIDE 0.9% 1000ML 1,000 ML IV SCH (16:45)
[2023-01-23] MEDS: ENOXAPARIN INJ 40 MG/0.4 ML SYR SQ SCH (17:38)
--- NOTE | 2023-01-23 18:01 | Nephrology Consultation ---
Date of Consultation January 23, 2023 Assessment & Plan (1) Hyponatremia: presenting sodium 125 at 1400 on 01/22/23; improved to 131 by 0600 on 01/23. behaving like hypovolemic hyponatremia; however at risk for SIADH type picture given ILD and hypothyroid hx. target is normal sNa by morning. Had 1L NS and now on NS at 60 mL /hr Had K repletion Taking po >recheck bmp now >> came back at 127 so stopped NS and started FR 1.5L History of Present Illness Reason for Consultation: hyponatremia Requesting Physician: Dr Woods Attending Physician: García Woods MD History of Present Illness 72 y/o F whom I'm asked to see for hyponatremia was admitted yesterday after presenting to ER 3X in 24 hrs for AMS and falls. Her presenting sodium was 125. PMH includes hypothyroid, interstitial lung dz, remote hx of chronic hyponatremia with psychogenic polydipsia and SIADH, HTN, GERD s/p fundiplication, polymyositis on methotrexate, OA, RLS, chronic pain, depression/anxiety. states she started lyrica 01/17 and it altered her sense of smell >> wonders in hindsight could this be d/t low Na. She hit her head with the fall w/ confusion and hallucinations after receiving ativan and benadryl during first ER visit. Pt did report decreased po intake over days prior to ER, attributed to Lyrica. Pt brought back to ER w/ labs above and w/ unremarkable head CT and head/neck CTA. She had 1L NS in ER. sNa this am is 131. K wnl (one time read last evening 3.4, lynn). feels much improved over yesterday> no further hallucinations or confusion (per both pt and her duaghter); toelrating po intake; no sob, no edema, no n/v. endorses intentional 55 lb wt loss past year. Allergies Allergy/AdvReac Type Severity Reaction Status Date / Time morphine AdvReac Severe Low BP Verified 01/14/23 08:35 gabapentin AdvReac Intermediate swelling Verified 01/14/23 08:35 of lower legs lisinopril AdvReac Intermediate Cough Verified 01/14/23 08:35 Home Medications Medication Instructions Recorded Confirmed Type bupropion HCl 150 mg 24 hr tablet, 150 mg PO QAM 10/20/19 05/03/23 History extended release (Wellbutrin XL) buspirone 10 mg tablet 20 mg PO TID 07/11/19 01/22/23 History calcium carbonate 600 mg calcium 600 mg PO BID 07/11/19 01/22/23 History (1,500 mg) tablet (Calcium) cholecalciferol (vitamin D3) 125 5,000 unit PO QAM 07/11/19 01/22/23 History mcg (5,000 unit) tablet (Vitamin D3) cyproheptadine 4 mg tablet 8 mg PO HS 07/11/19 01/22/23 History docusate sodium 100 mg capsule 100 mg PO AMHS 07/11/19 01/22/23 History ferrous sulfate 325 mg (65 mg 325 mg PO Q2D 07/11/19 01/22/23 History iron) tablet fluticasone propionate 50 2 spray intranasal HS 07/11/19 01/22/23 History mcg/actuation nasal spray,suspension (Flonase Allergy Relief) folic acid 1 mg tablet 1 mg PO QAM 07/11/19 01/22/23 History magnesium 250 mg tablet 250 mg PO QAM 07/11/19 01/22/23 History methotrexate (PF) 17.5 mg/0.35 mL 17.5 mg subcut Q7D 07/11/19 01/22/23 History subcutaneous auto-injector omeprazole 20 mg capsule,delayed 20 mg PO AMHS 07/11/19 01/22/23 History release rosuvastatin 5 mg tablet (Crestor) 5 mg PO HS 07/11/19 01/22/23 History trazodone 100 mg tablet 100 mg PO HS 06/16/21 01/22/23 History atenolol 25 mg tablet 25 mg PO QAM 08/19/22 01/22/23 History levothyroxine 88 mcg tablet 88 mcg PO QAM 08/19/22 01/22/23 History losartan 50 mg tablet 50 mg PO BID 08/19/22 01/22/23 History pramipexole 0.5 mg tablet 0.5 mg PO TID 08/19/22 01/22/23 History azelastine 137 mcg (0.1 %) nasal 1 spray intranasal BID 08/22/22 01/22/23 History spray aerosol duloxetine 20 mg capsule,delayed 40 mg PO QAM 08/22/22 01/22/23 History release (Cymbalta) loratadine 10 mg tablet 10 mg PO DAILY PRN Nasal Congestion 08/22/22 01/22/23 History buprenorphine 10 mcg/hour weekly 1 patch transdermal Q7D 01/14/23 01/22/23 History transdermal patch amino acids-multivit with iron and 1 tab PO DAILY 01/22/23 01/22/23 History minerals tablet aspirin 81 mg tablet,delayed 81 mg PO DAILY 01/22/23 01/22/23 History release meclizine 12.5 mg tablet 12.5 mg PO TID PRN Dizziness 01/22/23 01/22/23 History ondansetron HCl 4 mg tablet 4 mg PO Q6 PRN Nausea 01/22/23 01/22/23 History tizanidine 2 mg tablet 2 - 4 mg PO HS PRN Pain 01/22/23 01/22/23 History valacyclovir 500 mg tablet 500 mg PO QAM 01/22/23 01/22/23 History Patient History Medical History Anemia Anxiety Chronic pain Closed fracture of right distal femur 2019 Depression Diverticulitis Hx, 2018 Dyslipidemia Dysphagia liquids and food, worsening per pt-occasionally choking including waking from sleep choking or coughing Elevated hemidiaphragm right Gastroparesis GERD (gastroesophageal reflux disease) controlled symptoms per pt History of carotid artery disease mild bilateral intracranial ICA stenoses-head MRA 02/2022 History of COVID-19 08/2020, loss taste/smell, body aches, sinus issues > resolved (after sinus surgery) HTN (hypertension) controlled, stable per pt Hx of migraines Hyponatremia Hx Hypothyroidism Interstitial lung disease Follows with Dr. Eid/[facility] Polymyositis MTX Refusal of blood product d/t orthodox beliefs Rhabdomyolysis 2016 suspected r/t recent fall and/or statin use at that time RLS (restless legs syndrome) Surgical History H/O nasal septoplasty H/O total knee replacement Right History of back surgery History of cholecystectomy History of esophagogastroduodenoscopy (EGD) History of Americo fundoplication History of tubal ligation Hx of colonoscopy Hx of squamous cell carcinoma excision Excision (head) Nausea and vomiting after administration of anesthetic agent Years ago, denies needing scop patch Family History Other No significant family history Social History Smoking Status: Never smoker Second Hand Exposure: Yes (as a child); Do You Dip or Chew Tobacco: No; Hx Alcohol Use: No Hx Substance Use: No Preferred Language: [place] Communication Ability: Effective 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 Beliefs That Will Affect Care: Muslim Muslim Beliefs: Jehovah's Witnesses - no blood product Current Living Situation: Family Current Living Situation Comment: Lives in a mother in law suite Feels Safe at Home: Yes Safety Concerns: Feels Safe At This Time Assistive Devices: Walker Review of Systems Review of Systems: All systems reviewed & are unremarkable except as noted in HPI & below Physical Exam Constitutional: well developed and well nourished Eyes: EOM intact bilaterally ENMT: Ears: no external ear abnormality Nose: no external nose abnormality Mouth: + dry oral mucous membranes Neck: no nuchal rigidity Respiratory: normal respiratory effort Auscultation: + diminished lung sounds Gastrointestinal (Abdomen): Inspection/Auscultation: normal bowel sounds Percussion/Palpation: abdomen soft; abdomen nontender Musculoskeletal: Extremities: strength 5/5 throughout Skin: no rashes, warm and dry Neurologic: hughes, fluent speech, no tremor Results & Data Vital Signs (Past 12 Hours) Vital Signs Temp Pulse Resp BP Pulse Ox O2 Del Method 01/23/23 14:57 36.6 C 58 L 16 115/63 97 Room Air 01/23/23 11:49 36.5 C 56 L 18 138/76 98 Room Air 01/23/23 08:00 Room Air 01/23/23 07:33 36.4 C L 72 18 148/78 H 96 Room Air Laboratory Results 01/23/23 06:14 01/23/23 06:14 uOsm 539, Adam 28; sOsm 268 Diagnostic Findings CXR w/o active CP disease other imaging reviewed
[2023-01-23 19:25] LABS: BUN Creatinine Ratio 24.3 (10-20); Calcium 8.6 mg/dl (8.6-10.3); Creatinine Clr Calc Pharmacy 68.3 ml/min; Est GFR (African American) 94.5 ml/min; Est GFR (Non-African American) 81.5 ml/min; Potassium 4.2 mmol/L (3.5-5.1)
[2023-01-23] MEDS: CYPROHEPTADINE HCL 4 MG TAB PO SCH (21:24)
[2023-01-23] MEDS: CEROVITE ADV FORMULA TAB PO SCH (21:27)
[2023-01-23] MEDS: ROSUVASTATIN CALCIUM 5 MG TAB PO SCH (21:29)
[2023-01-23] MEDS: traZODone HCL 100 MG TAB PO SCH (21:30)
[2023-01-24] MEDS: LEVOTHYROXINE SODIUM 88 MCG TABLET PO SCH (06:03)
[2023-01-24 06:38] LABS: BUN Creatinine Ratio 26.8 (10-20); Calcium 8.5 mg/dl (8.6-10.3); Creatinine Clr Calc Pharmacy 91.1 ml/min; Est GFR (African American) 108.7 ml/min; Est GFR (Non-African American) 93.8 ml/min; Potassium 4.3 mmol/L (3.5-5.1)
[2023-01-24] MEDS: FOLIC ACID 1 MG TAB PO SCH (08:42)
[2023-01-24] MEDS: buPROPion XL 150 MG TABCR PO SCH (08:42)
[2023-01-24] MEDS: DOCUSATE SODIUM 100 MG CAP PO SCH (08:42)
[2023-01-24] MEDS: FERROUS SULFATE 325 MG TAB PO SCH (08:42)
[2023-01-24] MEDS: ATENOLOL 25 MG TABLET PO SCH (08:42)
[2023-01-24] MEDS: ASPIRIN 81 MG ECTAB PO SCH (08:42)
[2023-01-24] MEDS: DULoxetine HCL 20 MG CAP PO SCH (08:42)
[2023-01-24] MEDS: busPIRone 5 MG TAB PO SCH ×2 (08:43→13:38)
[2023-01-24] MEDS: LOSARTAN POTASSIUM 50 MG TAB PO SCH (08:43)
[2023-01-24] MEDS: CHOLECALCIFEROL 5,000 UNITS 125 MCG TAB PO SCH (08:43)
[2023-01-24] MEDS: PRAMIPEXOLE DIHYDROCHLO 0.5 MG TAB PO SCH ×2 (08:43→13:38)
[2023-01-24] MEDS: CALCIUM CARBONATE 1250MG TAB PO SCH (08:43)
[2023-01-24] MEDS: MAGNESIUM OXIDE 400 MG TAB PO SCH (08:43)
[2023-01-24] MEDS: PANTOprazole 40 MG TAB PO SCH (08:43)
[2023-01-24] MEDS: valACYclovir HCL 500 MG TABLET PO SCH (08:43)
--- NOTE | 2023-01-24 12:06 | Nephrology Progress Note ---
Date of Service January 24, 2023 Assessment & Plan (1) Hyponatremia: Plan: presenting sodium 125 at 1400 on 01/22/23; improved to 131 by 0600 on 01/23. behaved at first like hypovolemic hyponatremia; however then more of an SIADH type picture given ILD and hypothyroid hx. Had 1L NS and then NS at 60 mL /hr >> maintenance IVF actually dropped her sodium K appropriate today; feeling better Taking po will sign off NEPHRO D/C RECOMMENDATIONS -daily bmp while in house -continue 1.5L FR while in house; if ongoing sodium issues, d/c on 1.8L FR -no changes or additions to OP meds from sodium standpoint -PCP to check BMP weekly x 3 >> if ongoing electrolyte issues recommend neph referral prn Admission and Anticipated Discharge Date Admission Date: January 22, 2023 Subjective seen on early AM rounds; slept well; no futher hallucinations or confusion; no n/v or sob Review of Systems Review of Systems: All systems reviewed & are unremarkable except as noted in Subjective Physical Exam Constitutional: well developed and well nourished Eyes: EOM intact bilaterally ENMT: Ears: no external ear abnormality Nose: no external nose abnormality Mouth: + dry oral mucous membranes Neck: no nuchal rigidity Respiratory: normal respiratory effort Auscultation: + diminished lung sounds and + crackles (bibasilar) Gastrointestinal (Abdomen): Inspection/Auscultation: normal bowel sounds Percussion/Palpation: abdomen soft; abdomen nontender Musculoskeletal: Extremities: strength 5/5 throughout Skin: no rashes, warm and dry Results & Data Vital Signs (Past 12 Hours) Vital Signs Temp Pulse Pulse Resp BP Pulse Ox O2 Del Method 01/24/23 11:57 36.6 C 64 16 129/73 97 Room Air 01/24/23 07:30 56 L 01/24/23 07:30 Room Air 01/24/23 08:17 36.5 C 65 16 133/76 98 Room Air 01/24/23 02:48 36.4 C L 61 16 147/78 H 97 Room Air Laboratory Results 01/23/23 06:14 01/24/23 05:28
--- NOTE | 2023-01-24 14:29 | Hospitalist Progress Note ---
Date of Service January 24, 2023 Assessment & Plan (1) Hyponatremia: Plan: per admitting service notes with addendum: Patient presenting from home (3 ED visits in 24 hours) for falls and AMS. In the ED, Na+ 125 (138 on 12/20/22 on outpt labs) Patient reports poor PO intake the past few days. Received 1L NSS in ED. Await urine and serum osmolality, urine sodium before ordering additional IVF. 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 Patient reports compliance with 1.5 L fluid restriction. Noted that patient is on bupropion and trazodone however these are not new medications to her and seem to be crucial to her mental health stability. Will continue for now. 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 Correct sodium, monitor response Fall precautions 01/24 d/c Lyrica no neurologic symptoms PT/OT recommending home health with PT/OT (5) Chronic pain: (6) RLS (restless legs syndrome): Plan: Seems to be flaring now due to patient not receiving any medications in the past 24 hours Continue home dose pramipexole Noted the patient has been trialed on Requip in the past and has been ineffective. Gabapentin caused lower extremity edema. On Butrans patch Recently trialed on Lyrica however caused side effects. Continue Cymbalta 5/ stable (7) Anxiety: (8) Depression: Plan: Follows closely with psychiatry Continue home meds --duloxetine, BuSpar, trazodone, cyproheptadine 5/ stable (9) Polymyositis: Plan: On methotrexate (10) HTN (hypertension): Plan: BP controlled, continue losartan and atenolol (11) Hypothyroidism: Plan: TSH 1.369 Continue with thyroxine DVT PROPHYLAXIS SQ Lovenox Disposition d/c home with home health services plan of care discussed with patient in detail and at length all questions answered she is understanding, agreeable, comfortable with the plan of care Admission and Anticipated Discharge Date Admission Date: January 22, 2023 Subjective ff up for altered mental status, hyponatremia, etc seen resting in bed, comfortable in good spirits sitting up states she feels much better overall ambulating to the bathroom with no problems no dizziness, weakness no chest pain, dyspnea, palpitations no abdominal pain ,nausea, problems with urination no other symptoms states she is ready and would like to be discharged today Review of Systems Review of Systems: all noted and negative except for above Physical Exam Physical Exam: General- oriented x 3, not in distress, speaks in sentences with no effort or accessory muscle use Eyes- anicteric Neck- no JVD Lungs- clear breath sounds bilaterally, no rales/wheezes Heart- normal rate, regular rhythm; no murmurs Abdomen- normal bowel sounds, nondistended, soft, nontender Extremities- no pretibial edema, no calf tenderness Neuro- alert, oriented x 3; no gross focal neurologic deficits Skin- warm & dry Results & Data Results & Data Vital Signs (Past 12 Hours) Vital Signs Temp Pulse Pulse Resp BP Pulse Ox O2 Del Method 01/24/23 11:57 36.6 C 64 16 129/73 97 Room Air 01/24/23 07:30 56 L 01/24/23 07:30 Room Air 01/24/23 08:17 36.5 C 65 16 133/76 98 Room Air 01/24/23 02:48 36.4 C L 61 16 147/78 H 97 Room Air all noted and reviewed including below (10) HTN (hypertension) Hypertension type: unspecified secondary hypertension Qualified Code(s): I15.9 - Secondary hypertension, unspecified
--- NOTE | 2023-01-27 16:27 | Discharge Summary ---
Discharge Summary Date of Service January 27, 2023 delayed entry date of service 01/24/23 Notes For Next Care Provider Medication Changes From Visit Lyrica discontinued Admission HPI Per Admitting Provider 72-year-old female with PMH hypothyroidism, interstitial lung disease, HTN, GERD s/p Americo fundoplication, polymyositis on methotrexate, osteoarthritis, chronic pain, RLS, depression, anxiety, and other problems listed below who presents to the ED for evaluation of fall, weakness, confusion. History obtained from patient and daughters at the bedside as well as review of outpatient PCP, rheumatology, pain management notes. Patient initially seen in the ED last evening for complaints of a generalized burning sensation over her entire body. Patient felt that the symptoms came on after starting Lyrica recently. Patient was given Benadryl and Ativan and discharged home. Daughter states that on the way home, patient was hallucinating. Shortly after arriving home, patient suffered a fall and struck her head. She was brought back to the ED and had saul placed. Patient was discharged home once again and had another fall upon returning home. Daughter also noted her to be confused and hallucinating. Patient brought back to the ED for further evaluation. Patient with a longstanding history of chronic pain, anxiety, depression on several medications and history of trialing several different medications. Patient has not had any medications for the past 24 hours. Patient notes decreased oral intake over the past few days due to the side effects of Lyrica. She denies abdominal pain, nausea, vomiting, diarrhea. No chest pain or shortness of breath. She denies lightheadedness, dizziness, diaphoresis, syncopal events. No other recent illnesses, fevers, chills. She denies urinary symptoms. Reports increased anxiety and RLS symptoms over the past few weeks. In the ED, labs show Na+ 125. Head CT, head and neck CTAs unremarkable. Patient was given 1 L NSS. Admission Exam Per Admitting Provider Constitutional: WD/WN, vitals as above constant jerking movements of the BL legs Eyes: PERRL, conjunctivae normal, anicteric sclerae ENMT: external ear and nose normal, oropharynx normal Respiratory: normal respiratory effort, lungs clear to auscultation Cardiovascular: Rate/Rhythm: regular rate and regular rhythm Vessels: normal peripheral pulses Extremities: no edema Gastrointestinal (Abdomen): normal bowel sounds, soft, nontender, no hepatosplenomegaly Musculoskeletal: no cyanosis or clubbing, extremities motor strength 5/ Skin: no rashes, warm and dry 3 saul noted to right parietal area o n head Neurologic: PERRL, EOMI, accommodation nl, no face palsy, no dysarthria Psychiatric: Orientation: alert and oriented x 3 Affect: + anxious affect and + flat affect Principal Dx & Hospital Course #1 = Principal Diagnosis (1) Hyponatremia: (2) Fall: (3) Polypharmacy: (4) AMS (altered mental status): (5) Chronic pain: (6) RLS (restless legs syndrome): (7) Anxiety: (8) Depression: (9) Polymyositis: (10) HTN (hypertension): (11) Hypothyroidism: (1) Hyponatremia: Plan: per admitting service notes with addendum: Patient presenting from home (3 ED visits in 24 hours) for falls and AMS. In the ED, Na+ 125 (138 on 12/20/22 on outpt labs) Patient reports poor PO intake the past few days. Received 1L NSS in ED. Await urine and serum osmolality, urine sodium before ordering additional IVF. 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 Patient reports compliance with 1.5 L fluid restriction. Noted that patient is on bupropion and trazodone however these are not new medications to her and seem to be crucial to her mental health stability. Will continue for now. 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 Correct sodium, monitor response Fall precautions 5/5 d/c Lyrica no neurologic symptoms PT/OT recommending home health with PT/OT (5) Chronic pain: (6) RLS (restless legs syndrome): Plan: Seems to be flaring now due to patient not receiving any medications in the past 24 hours Continue home dose pramipexole Noted the patient has been trialed on Requip in the past and has been ineffective. Gabapentin caused lower extremity edema. On Butrans patch Recently trialed on Lyrica however caused side effects. 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 The internal carotid arteries demonstrate a beaded appearance bilaterally suggesting fibromuscular dysplasia. Please refer to full report in the Ordered Studies section above Further work up, management, and ff up as outpatient DVT PROPHYLAXIS SQ Lovenox Disposition d/c home with home health services plan of care discussed with patient in detail and at length all questions answered Discharge Exam General- oriented x 3, not in distress, speaks in sentences with no effort or accessory muscle use Eyes- anicteric Neck- no JVD Lungs- clear breath sounds bilaterally, no rales/wheezes Heart- normal rate, regular rhythm; no murmurs Abdomen- normal bowel sounds, nondistended, soft, nontender Extremities- no pretibial edema, no calf tenderness Neuro- alert, oriented x 3; no gross focal neurologic deficits Skin- warm & dry Updated Medication List Medication Instructions Recorded Confirmed Type bupropion HCl 150 mg 24 hr tablet, 150 mg PO QAM 07/11/19 01/22/23 History extended release (Wellbutrin XL) buspirone 10 mg tablet 20 mg PO TID 07/11/19 01/22/23 History calcium carbonate 600 mg calcium 600 mg PO BID 07/11/19 01/22/23 History (1,500 mg) tablet (Calcium) cholecalciferol (vitamin D3) 125 5,000 unit PO QAM 07/11/19 01/22/23 History mcg (5,000 unit) tablet (Vitamin D3) cyproheptadine 4 mg tablet 8 mg PO HS 10/20/19 05/03/23 History docusate sodium 100 mg capsule 100 mg PO AMHS 07/11/19 01/22/23 History ferrous sulfate 325 mg (65 mg 325 mg PO Q2D 07/11/19 01/22/23 History iron) tablet fluticasone propionate 50 2 spray intranasal HS 07/11/19 01/22/23 History mcg/actuation nasal spray,suspension (Flonase Allergy Relief) folic acid 1 mg tablet 1 mg PO QAM 07/11/19 01/22/23 History magnesium 250 mg tablet 250 mg PO QAM 07/11/19 01/22/23 History methotrexate (PF) 17.5 mg/0.35 mL 17.5 mg subcut Q7D 07/11/19 01/22/23 History subcutaneous auto-injector omeprazole 20 mg capsule,delayed 20 mg PO AMHS 07/11/19 01/22/23 History release rosuvastatin 5 mg tablet (Crestor) 5 mg PO HS 07/11/19 01/22/23 History trazodone 100 mg tablet 100 mg PO HS 06/16/21 01/22/23 History atenolol 25 mg tablet 25 mg PO QAM 08/19/22 01/22/23 History levothyroxine 88 mcg tablet 88 mcg PO QAM 08/19/22 01/22/23 History losartan 50 mg tablet 50 mg PO BID 08/19/22 01/22/23 History pramipexole 0.5 mg tablet 0.5 mg PO TID 08/19/22 01/22/23 History azelastine 137 mcg (0.1 %) nasal 1 spray intranasal BID 08/22/22 01/22/23 History spray aerosol duloxetine 20 mg capsule,delayed 40 mg PO QAM 08/22/22 01/22/23 History release (Cymbalta) loratadine 10 mg tablet 10 mg PO DAILY PRN Nasal Congestion 08/22/22 01/22/23 History buprenorphine 10 mcg/hour weekly 1 patch transdermal Q7D 01/14/23 01/22/23 History transdermal patch amino acids-multivit with iron and 1 tab PO DAILY 01/22/23 01/22/23 History minerals tablet aspirin 81 mg tablet,delayed 81 mg PO DAILY 01/22/23 01/22/23 History release meclizine 12.5 mg tablet 12.5 mg PO TID PRN Dizziness 01/22/23 01/22/23 History ondansetron HCl 4 mg tablet 4 mg PO Q6 PRN Nausea 01/22/23 01/22/23 History tizanidine 2 mg tablet 2 - 4 mg PO HS PRN Pain 01/22/23 01/22/23 History valacyclovir 500 mg tablet 500 mg PO QAM 01/22/23 01/22/23 History Hospital Stay Data Consultations 01/22/23 16:52 ED Decision to Admit Stat 01/22/23 18:03 Consult Nephrology Routine Diagnostic Imagining Performed 01/22/23 13:54 CT angio head w con Stat FINDINGS: Left posterior scalp swelling is again noted with associated sutures. Moderate mucosal thickening within the left maxillary sinus. There is partial opacification of the left ethmoid air cells. The major dural venous sinuses are patent. 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 This is likely developmental. There is a 3 mm saccular aneurysm within the right cervical internal carotid artery. Visualized intracranial internal carotid arteries, distal vertebral arteries, and basilar artery are widely patent. There is no significant stenosis, occlusion, or aneurysm seen within the bilateral ACAs, MCAs, or straightener hand. IMPRESSION: 1. No significant stenosis, occlusion, or aneurysm within the k[place] of [place]. 2. 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 3. Left posterior scalp swelling again noted. ACT 112: Negative or not required by law. Electronically signed by: Cheng Hoover M.D. 01/22/2023 3:[address] angio neck with con Stat IMPRESSION: 1. The internal carotid arteries demonstrate a beaded appearance bilaterally suggesting fibromuscular dysplasia. 2. Otherwise normal CT angiogram of the neck. The carotid and vertebral arteries are patent bilaterally. CT head/brain wo con Stat FINDINGS: No acute intracranial hemorrhage, midline shift or mass effect is present. The ventricular system is unremarkable. The basal cisterns are patent. No extra-axial collections are present. There are no findings to suggest acute dural sinus thrombosis or acute territorial infarct. Left posterior scalp contusion is again noted. There are skin saul. There is no acute calvarial fracture. Mucosal thickening of the left maxillary sinus is noted. A small amount of fluid within the left mastoid air cells is present. IMPRESSION: 1. No acute intracranial findings. 2. Left posterior scalp contusion. No acute calvarial fracture. ACT 112: Negative or not required by law. Pending Results Patient Have Any Pending Studies at Discharge: Yes Discharge Instructions Given to Patient (Per Discharging Provider) PLEASE REFER TO YOUR NEW MEDICATION LIST AND FOLLOW INSTRUCTIONS CAREFULLY. Please discontinue Lyrica. Please observe fluid restriction 1.8 L/day to prevent low sodium. PLEASE CALL YOUR PRIMARY CARE PHYSICIAN OR RETURN TO THE ER IF WITH WORSENING OF SYMPTOMS, INCLUDING Weakness, confusion, fevers or chills, etc. FOLLOW UP WITH PRIMARY CARE PHYSICIAN OUTLINED ABOVE. Total Time Total Time Spent Total Time Spent (In Minutes): >30 minutes
== END 2023-01-24 17:09 | disposition home health service (06) | DRG 643 ==
LOC: ED 12:14 → 2S 16:00 → SUATTDRO 16:00 → 2S 17:50

== ENCOUNTER 2023-11-28 10:42 | Observation (INO) ==
--- NOTE | 2023-11-25 13:50 | Anesthesiology Consultation ---
Date of Service November 25, 2023 Assessment & Plan (1) Encounter for pre-operative examination: Plan - hyponatremia 124 10/26/23. Updated labs 10/28/23 showing Na improvement to 130. Case was discussed with Dr. Calderon who advised patient is acceptable to proceed without PCP clearance-to have repeat BMP DOS. Fluid orders to anesthesiologist review DOS. - ER [facility] 10/26/23: "...concern for right-sided hip and sciatica pain. Patient does have a prior history of neuropathy. IV was established and blood work is obtained...buttock and hip pain without midline L-spine TTP. The patient does have a prior lumbar spine surgery but no overlying skin changes. Blood work shows a normal white count H&H and platelet count...kidney function is unremarkable. Hyponatremia noted at 124 which is worse compared to before...sodium was normal at 138 in August and 129 on October 22...plain films do not show any obvious fracture or dislocation...After further discussion with the patient patient would like [facility]...patient was seen and evaluated by the casework specialist referrals were made the patient may continue the referral at home but does not require inpatient treatment to do so. Patient as well as family with whom the patient had been in contact with were both comfortable with plan of care..." - s/p left TKA Grade 1 view, MAC 3, ETT 7. - no blood products per pt d/t faith beliefs. Type and screen discussed with pt and she did not want testing done given refusal of blood products, surgeon's office made aware. - Outpatient joint assessment: Patient is currently scheduled for inpatient pathway. If re-evaluated pending system levels during current pandemic/surgeon requests outpatient pathway, patient is not acceptable candidate for outpatient joint program from anesthesia standpoint. - Per dedicated driver on 11/25/23: No known infectious disease contacts, current infectious disease symptoms in past 10 days or COVID positive test result in the past 30 days. Chart Review Chart Review: Acceptable Risk for Surgery and Patient NOT seen in Pre Admission Testing Consults Requested medical & cardiac Pulmonary History Surgery Operation Date: 11/28/23 12:00 Proposed Procedures p Revision Left Total Knee Arthroplasty - Ramone Tanner DO Height/Weight Height: 5 ft 2 in Weight: 83.915 kg Allergies Allergy/AdvReac Type Severity Reaction Status Date / Time diphenhydramine Allergy Intermediate Hallucinati Verified 11/28/23 11:05 [From Benadryl] ng morphine AdvReac Severe Low BP Verified 11/28/23 11:05 gabapentin AdvReac Intermediate swelling Verified 11/28/23 11:05 of lower legs lisinopril AdvReac Intermediate Cough Verified 11/28/23 11:05 pregabalin [From Lyrica] AdvReac Intermediate sweating/ho Verified 11/28/23 11:05 t Medications Home Medications Medication Instructions Recorded Confirmed Last Taken bupropion HCl 150 mg 24 hr tablet, 150 mg PO QAM 07/11/19 11/28/23 11/28/23 06:00 extended release (Wellbutrin XL) buspirone 10 mg tablet 20 mg PO TID 07/11/19 11/28/23 11/28/23 06:00 calcium carbonate 600 mg calcium 600 mg PO BID 07/11/19 11/28/23 11/27/23 22:00 (1,500 mg) tablet (Calcium) cholecalciferol (vitamin D3) 125 5,000 unit PO QAM 07/11/19 11/28/23 11/27/23 08:00 mcg (5,000 unit) tablet (Vitamin D3) cyproheptadine 4 mg tablet 8 mg PO 07/11/19 11/28/23 11/27/23 22:00 docusate sodium 100 mg capsule 100 mg PO [facility] 07/11/19 11/28/23 10/03/22 23:30 ferrous sulfate 325 mg (65 mg 325 mg PO Q2D 07/11/19 11/28/23 11/27/23 08:00 iron) tablet folic acid 1 mg tablet 1 mg PO QAM 07/11/19 11/28/23 11/27/23 08:00 magnesium 250 mg tablet 250 mg PO [facility] 07/11/19 11/28/23 11/27/23 08:00 omeprazole 20 mg capsule,delayed 20 mg PO [facility] 07/11/19 11/28/23 11/28/23 06:00 release rosuvastatin 5 mg tablet (Crestor) 5 mg PO 07/11/19 11/28/23 11/28/23 06:00 trazodone 100 mg tablet 150 mg PO 06/16/21 11/28/23 11/27/23 22:00 atenolol 25 mg tablet 25 mg PO QAM 08/19/22 11/28/23 11/28/23 06:00 levothyroxine 88 mcg tablet 88 mcg PO QAM 08/19/22 11/28/23 11/28/23 06:00 losartan 50 mg tablet 50 mg PO BID 08/19/22 11/28/23 11/28/23 06:00 pramipexole 0.5 mg tablet 0.25 mg PO TID 08/19/22 11/28/23 11/27/23 22:00 duloxetine 20 mg capsule,delayed 60 mg PO QAM 08/22/22 11/28/23 11/28/23 06:00 release (Cymbalta) loratadine 10 mg tablet 10 mg PO DAILY PRN Nasal Congestion 08/22/22 11/28/23 11/27/23 22:00 amino acids-multivit with iron and 1 tab PO HS 01/22/23 11/28/23 11/27/23 08:00 minerals tablet aspirin 81 mg tablet,delayed 81 mg PO QAM 01/22/23 11/28/23 11/21/23 08:00 release meclizine 12.5 mg tablet 12.5 mg PO TID PRN Dizziness 01/22/23 11/28/23 Unknown ondansetron HCl 4 mg tablet 4 mg PO Q6 PRN Nausea 01/22/23 11/28/23 Unknown tizanidine 2 mg tablet 2 - 4 mg PO HS PRN Pain 01/22/23 11/28/23 Unknown valacyclovir 500 mg tablet 500 mg PO QAM 01/22/23 11/28/23 11/27/23 08:00 cyanocobalamin (vitamin B-12) 1,000 mcg PO DAILY 08/11/23 11/28/23 11/27/23 08:00 1,000 mcg tablet duloxetine 30 mg capsule,delayed 30 mg PO HS 08/11/23 11/28/23 11/27/23 22:00 release sprinkle amoxicillin 875 mg-potassium 1 tab PO BID #14 tabs 08/31/23 11/28/23 Unknown clavulanate 125 mg tablet oxycodone 5 mg tablet 5 mg PO Q6H PRN pain #6 tabs 10/22/23 11/28/23 Unknown lidocaine 5 % topical patch 1 patch topical DAILY PRN pain #15 10/26/23 11/28/23 Unknown ea azathioprine 50 mg tablet 50 mg PO QAM 11/25/23 11/28/23 11/28/23 06:00 naltrexone 50 mg tablet 50 mg PO QAM 11/25/23 11/28/23 11/27/23 08:00 Active Medications Generic Name Dose Route Start Last Admin Trade Name Sandie PRN Reason Stop Dose Admin Acetaminophen 1,000 mg 11/28/23 06:00 11/28/23 11:26 Acetaminophen 500 Mg Tab PO 11/28/23 18:00 1,000 mg PREOP UTE Administration Dexamethasone Sodium Phosphate 10 mg 11/28/23 06:00 11/28/23 11:27 DexamethasonePf 10 Mg/Ml Vial IV 11/28/23 18:00 10 mg PREOP UTE Administration Famotidine 20 mg 11/28/23 06:00 11/28/23 11:27 Famotidine 20 Mg Tab PO 11/28/23 18:00 20 mg PREOP UTE Administration Gabapentin 300 mg 11/28/23 06:00 11/28/23 11:27 Gabapentin 300 Mg Cap PO 11/28/23 18:00 Not Given PREOP UTE Lactated Ringer's 1,000 mls @ 60 mls/hr 11/28/23 06:00 11/28/23 11:26 Lr IV 11/28/23 22:39 60 mls/hr .[id number] UTE Administration Past Medical History Medical History Anxiety Chronic pain Chronic rhinitis Closed fracture of right distal femur 2019 no surgery Depression Diverticulitis Hx, 2018 Dyslipidemia Dysphagia worse with meat, happens on occasion Elevated hemidiaphragm right Gastroparesis GERD (gastroesophageal reflux disease) controlled symptoms per pt Hiatal hernia h/o of repair in past, and has at present too History of carotid artery disease mild bilateral intracranial ICA stenoses-head MRA 02/2022 History of COVID-19 08/2020, loss taste/smell, body aches, sinus issues > resolved (after sinus surgery) none since HTN (hypertension) controlled, stable per pt Hx of migraines Hyponatremia Hx Hypothyroidism Interstitial lung disease Follows with Dr. Eid/[facility] Neuropathy feet Polymyositis MTX Refusal of blood product d/t faith beliefs Rhabdomyolysis 2016 suspected r/t recent fall and/or statin use at that time RLS (restless legs syndrome) Seasonal allergies Past Family History Family History Other No significant family history Past Surgical History Surgical History H/O hemorrhoidectomy H/O nasal septoplasty H/O total knee replacement bilat History of back surgery lumbar History of cholecystectomy History of esophagogastroduodenoscopy (EGD) History of Americo fundoplication History of tubal ligation Hx of cataract extraction Hx of colonoscopy Hx of right cataract extraction will see Dr Huff 08/28/23 for F/U Hx of squamous cell carcinoma excision Excision (head) Nausea and vomiting after administration of anesthetic agent Years ago, denies needing scop patch Social History Smoking Status: Never smoker Do You Dip or Chew Tobacco: No Hx Alcohol Use: No alcohol intake frequency: other Hx Substance Use: No substance use type: does not use Review of Systems Snoring, denies witnessed apneas. Patient denies chest pain, shortness of breath, dyspnea on exertion, fever, chills, cough, wheezing, or palpitations. Physical Exam Vital Signs Last Vital Signs Temp 36.5 C 11/28/23 11:32 Pulse 78 11/28/23 11:32 Resp 20 11/28/23 11:32 BP 128/72 11/28/23 11:32 Pulse Ox 93 11/28/23 11:32 O2 Del Method Room Air 11/28/23 11:32 Lab Results Anesthesia Preop Results Results Anesthesia Widget: 2 WBC 8.96 K/ul (4.8-10.8) 10/26/23 Hgb 12.5 g/dl (12.0-16.0) 10/26/23 Hct 37.0 % (37.0-47.0) 10/26/23 Plt 253 K/uL (130-400) 10/26/23 Na 134 mmol/L (136-145) L 11/28/23 K 4.2 mmol/L (3.5-5.1) 11/28/23 Cl 100 mmol/L (98-107) 11/28/23 CO2 27 mmol/L (21-32) 11/28/23 BUN 20 mg/dl (6-23) 11/28/23 Creat 0.60 mg/dl (0.6-1.2) 11/28/23 Glucose Level 110 mg/dl (70-99(Fasting)) H 11/28/23 PT 10.1 Seconds (9.0-12.0) 10/26/23 PTT 24 Seconds (21-31) 10/26/23 INR 0.9 (0.9-1.1) 10/26/23 Blood Type A Negative 11/19/23 Antibody Screen NEGATIVE 11/19/23 Testing Laboratory Results 11/28/23 10:56 10/28/23 SODIUM: 130 POTASSIUM: 4.7 CHLORIDE: 94 CO2: 25 BUN: 23 CREATININE: 0.7 GLUCOSE: 86 Electrocardiogram Date: 08/31/23 NSR, rate 70 bpm RBBB Minimal voltage criteria for LVH, may be normal variant Chest X-Ray Date: 01/22/23 *1view* No active disease in the chest. Echocardiogram Date: 07/20/21 EF 60-64% Mild cLVH Normal LV wall motion No significant valvular heart disease Grade I diastolic dysfunction Cervical Spine Date: 01/22/23 CT No fractures within the cervical spine. Other Testing Head and neck CTA 01/22/23 1. The internal carotid arteries demonstrate a beaded appearance bilaterally suggesting fibromuscular dysplasia. 2. Otherwise normal CT angiogram of the neck. The carotid and vertebral arteries are patent bilaterally.
[~2023-11-28 10:42] MED LIST changes: -ACETAMINOPHEN 500 MG TAB PO SCH; +DEXAMETHASONE SOD INJ 4 MG/ML VIAL ONE; -FAMOTIDINE 20 MG TAB PO SCH; -GABAPENTIN 300 MG CAP PO SCH; -LR 500ML BOLUS, THEN 15ML/HR IV SCH; -LR 60ML/HR IV SCH; -ORTHO JOINT MIX INFIL SCH; -TRANEXAMIC ACID 1,000 MG **IV Intra-op IV SCH; -TRANEXAMIC ACID 1,000 MG **IV Pre-op IV SCH; -ceFAZolin 2000MG 2,000 MG/15 ML SYR IV SCH; -dexAMETHasone 4 MG TAB PO SCH
[2023-11-28] MEDS ORDERED: MIDAZOLAM HCL 1 MG/ML 2ML VIAL ONE (11:12)
[2023-11-28] MEDS: LR 60ML/HR IV SCH (11:26)
[2023-11-28] MEDS: ACETAMINOPHEN 500 MG TAB PO SCH ×2 (11:26→21:37)
[2023-11-28] MEDS: FAMOTIDINE 20 MG TAB PO SCH (11:27)
[2023-11-28] MEDS: dexAMETHasone**PF** 10 MG/ML VIAL IV SCH (11:27)
[2023-11-28] MEDS: GABAPENTIN 300 MG CAP PO SCH (11:27)
--- NOTE | 2023-11-28 11:33 | History & Physical Bridge Note ---
Date of Service November 28, 2023 History & Physical Bridge Note I have examined the patient, reviewed the History & Physical and in the interval since the performance of the History & Physical I have noted the following changes of clinical significance: no changes noted
[2023-11-28 11:42] LABS: BUN Creatinine Ratio 33.3 (10-20); Calcium 9.4 mg/dl (8.6-10.3); Creatinine Clr Calc Pharmacy 85.7 ml/min; Est GFR (African American) 105.5 ml/min; Est GFR (Non-African American) 91.1 ml/min; Potassium 4.2 mmol/L (3.5-5.1)
--- NOTE | 2023-11-28 11:52 | Anesthesiology Consultation ---
Date of Service November 28, 2023 Assessment & Plan Consults Requested medical & cardiac Pulmonary History Surgery Operation Date: 11/28/23 12:00 Proposed Procedures p Revision Left Total Knee Arthroplasty - Ramone Tanner, Height/Weight Height: 5 ft 2 in Weight: 85 kg Allergies Allergy/AdvReac Type Severity Reaction Status Date / Time diphenhydramine Allergy Intermediate Hallucinati Verified 11/28/23 11:05 [From Benadryl] ng morphine AdvReac Severe Low BP Verified 11/28/23 11:05 gabapentin AdvReac Intermediate swelling Verified 11/28/23 11:05 of lower legs lisinopril AdvReac Intermediate Cough Verified 11/28/23 11:05 pregabalin [From Lyrica] AdvReac Intermediate sweating/ho Verified 11/28/23 11:05 t Medications Home Medications Medication Instructions Recorded Confirmed Last Taken bupropion HCl 150 mg 24 hr tablet, 150 mg PO QAM 07/11/19 11/28/23 11/28/23 06:00 extended release (Wellbutrin XL) buspirone 10 mg tablet 20 mg PO TID 07/11/19 11/28/23 11/28/23 06:00 calcium carbonate 600 mg calcium 600 mg PO BID 07/11/19 11/28/23 11/27/23 22:00 (1,500 mg) tablet (Calcium) cholecalciferol (vitamin D3) 125 5,000 unit PO QAM 07/11/19 11/28/23 11/27/23 08:00 mcg (5,000 unit) tablet (Vitamin D3) cyproheptadine 4 mg tablet 8 mg PO HS 07/11/19 11/28/23 11/27/23 22:00 docusate sodium 100 mg capsule 100 mg PO AMHS 07/11/19 11/28/23 10/03/22 23:30 ferrous sulfate 325 mg (65 mg 325 mg PO Q2D 07/11/19 11/28/23 11/27/23 08:00 iron) tablet folic acid 1 mg tablet 1 mg PO QAM 07/11/19 11/28/23 11/27/23 08:00 magnesium 250 mg tablet 250 mg PO QAM 07/11/19 11/28/23 11/27/23 08:00 omeprazole 20 mg capsule,delayed 20 mg PO AMHS 07/11/19 11/28/23 11/28/23 06:00 release rosuvastatin 5 mg tablet (Crestor) 5 mg PO HS 07/11/19 11/28/23 11/28/23 06:00 trazodone 100 mg tablet 150 mg PO HS 06/16/21 11/28/23 11/27/23 22:00 atenolol 25 mg tablet 25 mg PO QAM 08/19/22 11/28/23 11/28/23 06:00 levothyroxine 88 mcg tablet 88 mcg PO QAM 08/19/22 11/28/23 11/28/23 06:00 losartan 50 mg tablet 50 mg PO BID 08/19/22 11/28/23 11/28/23 06:00 pramipexole 0.5 mg tablet 0.25 mg PO TID 08/19/22 11/28/23 11/27/23 22:00 duloxetine 20 mg capsule,delayed 60 mg PO QAM 08/22/22 11/28/23 11/28/23 06:00 release (Cymbalta) loratadine 10 mg tablet 10 mg PO DAILY PRN Nasal Congestion 08/22/22 11/28/23 11/27/23 22:00 amino acids-multivit with iron and 1 tab PO HS 01/22/23 11/28/23 11/27/23 08:00 minerals tablet aspirin 81 mg tablet,delayed 81 mg PO QAM 01/22/23 11/28/23 11/21/23 08:00 release meclizine 12.5 mg tablet 12.5 mg PO TID PRN Dizziness 01/22/23 11/28/23 Unknown ondansetron HCl 4 mg tablet 4 mg PO Q6 PRN Nausea 01/22/23 11/28/23 Unknown tizanidine 2 mg tablet 2 - 4 mg PO HS PRN Pain 01/22/23 11/28/23 Unknown valacyclovir 500 mg tablet 500 mg PO QAM 01/22/23 11/28/23 11/27/23 08:00 cyanocobalamin (vitamin B-12) 1,000 mcg PO DAILY 08/11/23 11/28/23 11/27/23 08:00 1,000 mcg tablet duloxetine 30 mg capsule,delayed 30 mg PO HS 11/11/28/23 11/27/23 22:00 release sprinkle amoxicillin 875 mg-potassium 1 tab PO BID #14 tabs 08/31/23 11/28/23 Unknown clavulanate 125 mg tablet oxycodone 5 mg tablet 5 mg PO Q6H PRN pain #6 tabs 10/22/23 11/28/23 Unknown lidocaine 5 % topical patch 1 patch topical DAILY PRN pain #15 10/26/23 11/28/23 Unknown ea azathioprine 50 mg tablet 50 mg PO QAM 11/25/23 11/28/23 11/28/23 06:00 naltrexone 50 mg tablet 50 mg PO QAM 11/25/23 11/28/23 11/27/23 08:00 Active Medications Generic Name Dose Route Start Last Admin Trade Name Freq PRN Reason Stop Dose Admin Acetaminophen 1,000 mg 11/28/23 06:00 11/28/23 11:26 Acetaminophen 500 Mg Tab PO 11/28/23 18:00 1,000 mg PREOP UTE Administration Dexamethasone Sodium Phosphate 10 mg 11/28/23 06:00 11/28/23 11:27 DexamethasonePf 10 Mg/Ml Vial IV 11/28/23 18:00 10 mg PREOP UTE Administration Famotidine 20 mg 11/28/23 06:00 11/28/23 11:27 Famotidine 20 Mg Tab PO 11/28/23 18:00 20 mg PREOP UTE Administration Gabapentin 300 mg 11/28/23 06:00 11/28/23 11:27 Gabapentin 300 Mg Cap PO 11/28/23 18:00 Not Given PREOP UTE Lactated Ringer's 1,000 mls @ 60 mls/hr 11/28/23 06:00 11/28/23 11:26 Lr IV 11/28/23 22:39 60 mls/hr .[id number] UTE Administration NPO Date Last Intake of Fluids: 11/28/23 Time Last Intake of Fluids: 06:30 Last Intake of Fluids Comment: sip with meds Date Last Intake of Solids: 11/27/23 Time Last Intake of Solids: 00:00 Past Medical History Medical History Anxiety Chronic pain Chronic rhinitis Closed fracture of right distal femur 2019 no surgery Depression Diverticulitis Hx, 2018 Dyslipidemia Dysphagia worse with meat, happens on occasion Elevated hemidiaphragm right Gastroparesis GERD (gastroesophageal reflux disease) controlled symptoms per pt Hiatal hernia h/o of repair in past, and has at present too History of carotid artery disease mild bilateral intracranial ICA stenoses-head MRA 02/2022 History of COVID-19 08/2020, loss taste/smell, body aches, sinus issues > resolved (after sinus surgery) none since HTN (hypertension) controlled, stable per pt Hx of migraines Hyponatremia Hx Hypothyroidism Interstitial lung disease Follows with Dr. Eid/Hazel Neuropathy feet Polymyositis MTX Refusal of blood product d/t holiness beliefs Rhabdomyolysis 2016 suspected r/t recent fall and/or statin use at that time RLS (restless legs syndrome) Seasonal allergies Past Family History Family History Other No significant family history Past Surgical History Surgical History H/O hemorrhoidectomy H/O nasal septoplasty H/O total knee replacement bilat History of back surgery lumbar History of cholecystectomy History of esophagogastroduodenoscopy (EGD) History of Americo fundoplication History of tubal ligation Hx of cataract extraction Hx of colonoscopy Hx of right cataract extraction will see Dr Huff 08/28/23 for F/U Hx of squamous cell carcinoma excision Excision (head) Nausea and vomiting after administration of anesthetic agent Years ago, denies needing scop patch Social History Smoking Status: Never smoker Do You Dip or Chew Tobacco: No Hx Alcohol Use: No alcohol intake frequency: other Hx Substance Use: No substance use type: does not use Physical Exam Vital Signs Last Vital Signs Temp 36.5 C 11/28/23 11:32 Pulse 78 11/28/23 11:32 Resp 20 11/28/23 11:32 BP 128/72 11/28/23 11:32 Pulse Ox 93 11/28/23 11:32 O2 Del Method Room Air 11/28/23 11:32 Testing Laboratory Results 11/28/23 10:56 Electrocardiogram Date: 08/31/23 NSR, rate 70 bpm RBBB Minimal voltage criteria for LVH, may be normal variant Chest X-Ray Date: 01/22/23 *1view* No active disease in the chest. Echocardiogram Date: 07/20/21 EF 60-64% Mild cLVH Normal LV wall motion No significant valvular heart disease Grade I diastolic dysfunction Cervical Spine Date: 01/22/23 CT No fractures within the cervical spine. Other Testing Head and neck CTA 01/22/23 1. The internal carotid arteries demonstrate a beaded appearance bilaterally suggesting fibromuscular dysplasia. 2. Otherwise normal CT angiogram of the neck. The carotid and vertebral arteries are patent bilaterally.
[2023-11-28] MEDS ORDERED: ATROPINE SULFATE 0.1 MG/ML 10ML SYR IV PRN (11:57)
[2023-11-28] MEDS ORDERED: PROMETHAZINE HCL 6.25 MG in SODIUM CHLORIDE 0.9% 50 ML IV PRN (11:57)
[2023-11-28] MEDS ORDERED: PROPOFOL IV EMULSION 10 MG/ML 20 ML VIAL IV ONE (11:57)
[2023-11-28] MEDS ORDERED: ePHEDrine sulfate 50 MG/ML AMP IV PRN (11:57)
[2023-11-28] MEDS: TRANEXAMIC ACID 1,000 MG **IV Pre-op IV SCH (12:10)
[2023-11-28] MEDS: ceFAZolin 2000MG 2,000 MG/15 ML SYR IV SCH ×2 (12:30→21:38)
[2023-11-28] MEDS ORDERED: SUCCINYLCHOLINE 100MG/5ML SYR IV ONE (12:32)
[2023-11-28] MEDS ORDERED: fentaNYL citrate PF 100 MCG/2 ML VIAL ONE (12:32)
[2023-11-28] MEDS ORDERED: DEXAMETHASONE SOD INJ 4 MG/ML VIAL ONE (12:32)
[2023-11-28] MEDS ORDERED: ROCURONIUM BROMIDE 10 MG/ML 5 ML VIAL IV ONE (12:32)
[2023-11-28] MEDS ORDERED: ONDANSETRON INJ 2 MG/ML 2 ML VIAL ONE (12:32)
[2023-11-28] MEDS: ROPIV 0.5% 246mg, Ketorolac 30mg, EPINEPHrine 0.5mg in NSS INFIL SCH (13:03)
[2023-11-28] MEDS ORDERED: HYDROmorphone INJ 2 MG/ML SYR/VIAL ONE (13:15)
[2023-11-28] MEDS ORDERED: LABETALOL HCL IV 5 MG/ML 20ML IV ONE (13:19)
[2023-11-28] MEDS ORDERED: SUGAMMADEX SODIUM 200 MG/2 ML VIAL IV ONE (13:52)
[2023-11-28] MEDS: TRANEXAMIC ACID 1,000 MG **IV Intra-op IV SCH (13:56)
--- NOTE | 2023-11-28 15:05 | Operative Report ---
PG Post Operative Report Pre & Post Diagnosis Operation Date: 11/28/23 12:00 Pre-Op Diagnosis: Valgus instability following total knee arthroplasty Post-Op Diagnosis: Valgus instability following total knee arthroplasty I identified the patient and participated in the time-out.: Yes Procedure Operation Date: 11/28/23 12:00 Actual Procedures p Revision Left Total Knee Arthroplasty with revision of femoral component only. (Left) - Ramone Tanner DO Surgeon Ramone Tanner DO Lokie Engineer Ramone Mc PA-C and Jonathan Raya PA-C Estimated Blood Loss 30 Findings Consistent with Post-Op Diagnosis Specimens None Description of Procedure On November 28, 2023 Philip arrived at [facility] for blood procedure. She was seen in the preoperative holding area and the operative extremity identified and signed. She was given a preoperative antibiotic and a regional block. She was taken back to the operative room and laid on table in supine position. She was put under general anesthesia. The left leg was prepped and draped sterile fashion. A timeout was done. The patient and the operative extremity was properly identified. The leg did appear to be an excessive valgus. She also had some valgus instability. She also had hyperextension of the knee. There is no effusion. The previous midline incision was opened back up. Dissection was taken down to the extensor mechanism. A standard medial parapatellar arthrotomy was used. There was normal synovial fluid in the knee joint. The knee joint itself actually look very good. There was not much scar tissue formation and the implants appeared well-seated. The polyethylene implant was removed. Alignment of the tibial component was immediately checked and it appeared to be in anatomic alignment. The femur seem to be in some valgus. She also has significant laxity. At this point I thought it was best to remove the femoral component and to realign her and do a more constrained implant. An oscillating saw and osteotomes were used to remove the femoral implant. Once the femoral implant was removed sequential reaming up to a size 11 reamer was done. Off that reamer a cutting block was placed. Anterior posterior and chamfer cuts were made. Cuts were made for a 10 mm lateral augment and a 5 mm medial augment. The reamer and the cutting block were then removed. The trial femoral implant was assembled on the back table. The trial implant was impacted into place. A 18 mm polyethylene implant was trialed. The knee was brought through full range of motion and felt to be very stable. The trials were then removed. The final size 7 PRK femoral implant with a 10 mm lateral augment and a 5 mm medial augment and a 70 millimeter stem extension was then cemented into place with Palacos cement. Once cement had hardened a size 18 CCK polyethylene implant was then snapped into place. A locking screw was then tightened. The knee was brought through full range of motion and felt to be stable. The wound was then irrigated. Surrounding soft tissues were injected with 100 cc of an orthopedic pain control cocktail. The extensor mechanism was closed with #1 Vicryl. 3-minute Betadine lavage was done. Skin was closed with 2-0 Vicryl, 3- 0 V-Loc sutures, and saul. She was placed in a soft compressive dressing. She was then extubated and transferred to a hospital bed. She was taken to the postanesthesia care unit in stable condition. She tolerated the procedure well. Jonathan Raya PA-C and Ramone Sarmiento PA-C, was present for the entire procedure. He was critical for patient positioning, prepping, draping, retraction exposure, wound closure and application of sterile dressing. I attest to the content of the Intraoperative Record and any orders documented therein. Any exceptions are noted below.
--- NOTE | 2023-11-28 15:05 | XRay Report ---
TWO VIEWS LEFT KNEE CLINICAL HISTORY: Postoperative examination. FINDINGS: AP and crosstable lateral portable views of the left knee are obtained. A left knee arthrop lasty is in near anatomic alignment. There is a long femoral stem. There has been undersurface remode ling of the patella. No acute fracture is seen. There are expected postoperative changes around the k nee including skin clips, soft tissue edema, and subcutaneous gas. IMPRESSION: Expected postoperative changes status post left knee arthroplasty. No acute fracture is s een. ACT 112: Negative or not required by law. Electronically signed by: Sd Sutherland M.D. 11/28/2023 3:04 PM
[2023-11-28] MEDS: HYDROmorphone INJ 2 MG/ML SYR/VIAL IV PRN (15:09)
--- NOTE | 2023-11-28 16:23 | Anesthesiology Progress Note ---
Date of Service November 28, 2023 Anesthesia Post Procedure Vital Signs Vital Signs: Temp Pulse Pulse Resp BP Pulse Ox O2 Del Method 11/28/23 15:50 72 15 144/65 H 95 Room Air 11/28/23 15:40 36.4 C L 74 16 140/87 96 Room Air 11/28/23 15:30 75 18 125/72 94 Room Air 11/28/23 15:20 73 20 134/67 96 Room Air 11/28/23 15:10 74 18 149/60 H 96 Room Air 11/28/23 15:00 76 21 132/70 94 Room Air 11/28/23 14:50 84 18 136/63 94 Room Air 11/28/23 14:43 36.0 C L 78 20 160/84 H 99 Room Air 11/28/23 11:32 36.5 C 78 20 128/72 93 Room Air 11/28/23 11:15 Room Air Pain Intensity Left Knee: Pain Intensity: 3 Transfer of Care Handoff Completed per policy Notes Mental Status: alert / awake / arousable Patient Amnestic to Procedure: Yes Nausea / Vomiting: adequately controlled Pain: adequately controlled Airway Patency, RR, SpO2: stable & adequate BP & HR: stable & adequate Hydration State: stable & adequate Anesthetic Complications: no major complications apparent
[2023-11-28] MEDS ORDERED: METOCLOPRAMIDE HCL INJ 5 MG/ML 2 ML VIAL IV PRN (16:44)
[2023-11-28] MEDS ORDERED: NALOXONE HCL 0.4 MG/1 ML VIAL/CARP IV PRN (16:44)
[2023-11-28] MEDS ORDERED: HYDROmorphone INJ 0.5 MG/0.5 ML SYR IV PRN (16:44)
[2023-11-28] MEDS ORDERED: ONDANSETRON INJ 2 MG/ML 2 ML VIAL IV PRN (16:44)
[2023-11-28] MEDS ORDERED: MAGNESIUM HYDROXIDE SUSP 30 ML UDC PO PRN (16:44)
[2023-11-28] MEDS ORDERED: oxyCODONE HCL IR 5 MG TAB (IMMEDIATE RELEASE) PO PRN (16:44)
[2023-11-28] MEDS ORDERED: tiZANidine HCL 4 MG TABLET PO PRN (16:44)
[2023-11-28] MEDS ORDERED: ONDANSETRON 4 MG OD TAB PO PRN (16:44)
[2023-11-28] MEDS ORDERED: bisacodyL 10 MG SUPP PR PRN (16:44)
[2023-11-28] MEDS ORDERED: MECLIZINE 12.5 MG TAB PO PRN (16:44)
[2023-11-28] MEDS: ORTHO JOINT ANESTHETIC ONE (17:15)
[2023-11-28] MEDS: SODIUM CHLORIDE 0.9% 1,000 ML IV SCH (17:33)
[2023-11-28] MEDS: KETOROLAC TROMETHAMINE 15 MG/ML VIAL IV SCH (17:35)
[2023-11-28] MEDS: PRAMIPEXOLE DIHYDROCHLO 0.25 MG TAB PO SCH (17:36)
[2023-11-28] MEDS: busPIRone 5 MG TAB PO SCH (18:13)
[2023-11-28] MEDS: CYPROHEPTADINE HCL 4 MG TAB PO SCH (21:37)
[2023-11-28] MEDS: ASPIRIN 81 MG ECTAB PO SCH (21:37)
[2023-11-28] MEDS: DULoxetine HCL 30 MG CAP PO SCH (21:37)
[2023-11-28] MEDS: PANTOprazole 40 MG TAB PO SCH (21:37)
[2023-11-28] MEDS: SENNA 8.6 MG TAB PO SCH (21:37)
[2023-11-28] MEDS: LOSARTAN POTASSIUM 50 MG TAB PO SCH (21:38)
[2023-11-28] MEDS: traZODone HCL 50 MG TAB PO SCH (21:38)
[2023-11-28] MEDS: ROSUVASTATIN CALCIUM 5 MG TAB PO SCH (21:38)
[2023-11-28] MEDS: DOCUSATE SODIUM 100 MG CAP PO SCH (21:38)
[2023-11-28] MEDS: LORATADINE 10 MG TAB PO PRN (22:12)
--- OUTSIDE RECORDS SUMMARY | 2023-11-28 23:06 | External Medical Summary | Summary of Care ---
Author Name Unknown Organization [facility] Address [address] [place] [address] Phone [phone] Care Team Providers Care Top Steep Tender Name Role Phone Uma Mark DO Primary Care Provider Reason for Visit * Reason Onset Date Comments Fax 11/26/2023 Letter Requests 11/26/2023 Encounter Details Date Type Department Care Team (Late st Contact Info) Description 11/26/2023 Telephone [facility] [address] [place] [address] Uma Mark DO [address] [place] [address] Fax; Letter Requests Allergies Active Allergy Reactions Criticality Noted Date Comments Diphenhydramine 06/12/2023 HALLUCINATIONS. Gabapentin 10/10/2022 Retained fluid Lisinopril Cough 08/09/2019 Pregabalin Other (Please comment) 02/14/2023 Hot all over " I felt like I was on fire inside and out" Morphine Sulfate 07/19/2010 Lowers her blood pressure documented as of this encounter (statuses as of 11/27/2023) Medications Medication Sig Dispensed Refills Start Date End Date Status CALCIUM 600 600 MG PO TABSIndications:in pm Take by mouth. 0 Active OCUVITE EXTRA PO TABS once daily 0 06/15/2013 Active ECOTRIN LOW STRENGTH 81 MG PO TBEC One pill by mouth once a day 100 Tab 5 12/14/2013 Active Cyanocobalamin 1000 MCG Oral TabletIndications:at lunchtime Take 1 Tablet by mouth in the morning. 0 12/28/2015 Active Magnesium 250 MG Tablet Take 1 Tablet by mouth in the morning. 0 Active Cholecalciferol (VITAMIN D-3) 5000 units Tablet Take 1 Tablet by mouth in the morning. 0 Active Docusate Sodium 100 MG Oral Capsule Take 1 Capsule by mouth in the morning and 1 Capsule before bedtime. 0 Active Amoxicillin 500 MG Oral Capsule (Amoxil) 0 05/31/2021 Active Tuberculin Syringe 27G X 1/2" 1 ML (BD TB Syringe) USE TO INJECT METHOTREXATE 12 Each 3 07/18/2022 Active Ferrous Sulfate 325 (65 Fe) MG Oral Tablet (Feosol) One pill every other day 90 Tablet 1 02/20/2023 Active buPROPion HCl ER (SR) 150 MG Oral Tablet Extended Release 12 Hour (Wellbutrin SR) Take 1 Tablet by mouth in the morning. In the morning.. 30 Tablet 1 02/20/2023 Active Azelastine HCl 0.1 % Nasal Solution (Astelin) Administer 1 Patterson into nostril in the morning and 1 Patterson before bedtime. 30 mL 12 02/25/2023 Active traZODone HCl 100 MG Oral Tablet (Desyrel) Take 1 Tablet by mouth at bedtime. 2 at bedtime 180 Tablet 0 04/02/2023 Active Rosuvastatin Calcium 5 MG Oral Tablet (Crestor)Indications :Hyperlipidemia TAKE 1 TABLET BY MOUTH EVERY DAY IN THE MORNING 90 Tablet 1 04/10/2023 Active Fluticasone Propionate 50 MCG/ACT Nasal Suspension (Flonase)Indications :Allergic rhinitis SPRAY 2 SPRAYS INTO EACH NOSTRIL IN THE MORNING 48 mL 1 05/22/2023 Active tiZANidine HCl 2 MG Oral Tablet (Zanaflex) Take 1-2 tablets by mouth at night as needed for pain or muscle spasm and tightness 180 Tablet 3 06/02/2023 Active Folic Acid 1 MG Oral Tablet TAKE 1 TABLET BY MOUTH EVERY DAY IN THE MORNING 90 Tablet 1 06/16/2023 Active Loratadine 10 MG Oral Tablet (Claritin)Indication s:Other chronic sinusitis TAKE 1 TABLET BY MOUTH EVERY DAY IN THE MORNING 90 Tablet 1 06/16/2023 Active Lysine 500 MG Oral Tablet Take by mouth. 0 Active DULoxetine HCl 30 MG Oral Capsule Delayed Release Particles (Cymbalta) Take 1 Capsule by mouth in the morning. Take along with 60mg capsule. Total dose or 90mg.. 90 Capsule 3 06/23/2023 Active DULoxetine HCl 60 MG Oral Capsule Delayed Release Particles (Cymbalta)Indication s:Primary osteoarthritis of both hands,Primary osteoarthritis of both knees,Primary osteoarthritis of hip, unspecified laterality TAKE 1 CAPSULE BY MOUTH EVERY MORNING 30 Capsule 5 07/11/2023 Active Lidocaine Viscous HCl 2 % Mouth/Throat SolutionIndications: Thrush SWISH AND SPIT EVERY 2 HOURS NEEDED FOR PAIN, BREAKTHROUGH. 100 mL 0 07/18/2023 Active valACYclovir HCl 500 MG Oral Tablet (Valtrex)Indications :Oral ulcer TAKE 1 TABLET BY MOUTH IN THE MORNING. FOR TRANSMISSION REDUCTION. 90 Tablet 1 07/22/2023 Active Cyproheptadine HCl 4 MG Oral Tablet (Periactin)Indicatio ns:in evening 1 tablet daily 90 Tablet 5 07/28/2023 Active Losartan Potassium 50 MG Oral Tablet (Cozaar)Indications: HTN, goal below 140/90 Take 1 Tablet by mouth in the morning and 1 Tablet before bedtime. 180 Tablet 1 08/06/2023 Active Levothyroxine Sodium 88 MCG Oral Tablet (Levoxyl)Indications :Hypothyroidism TAKE 1 TABLET BY MOUTH EVERY MORNING ON AN EMPTY STOMACH 90 Tablet 3 08/06/2023 Active Pramipexole Dihydrochloride 0.25 MG Oral Tablet (Mirapex)Indications :Restless legs syndrome TAKE 1 TABLET BY MOUTH IN THE MORNING, 1 AT NOON AND 1 BEFORE BEDTIME 270 Tablet 1 08/07/2023 Active Omeprazole 20 MG Oral Capsule Delayed Release (PriLOSEC)Indication s:Gastroesophageal reflux disease without esophagitis TAKE 1 CAPSULE IN THE MORNING AND 1 CAPSULE BEFORE BEDTIME (DOSE INCREASE) 180 Capsule 0 09/02/2023 Active Ondansetron HCl 4 MG Oral Tablet (Zofran)Indications: Nausea TAKE 1 TABLET BY MOUTH EVERY 6 HOURS NEEDED FOR NAUSEA 60 Tablet 1 09/01/2023 Active Meclizine HCl 12.5 MG Oral Tablet (Antivert)Indication s:Vertigo TAKE 1 TABLET BY MOUTH THREE TIMES A DAY NEEDED FOR DIZZINESS 45 Tablet 1 09/01/2023 Active Atenolol 25 MG Oral Tablet (Tenormin) TAKE 1 TABLET IN THE MORNING STRENGTH: 25 MG 90 Tablet 1 09/03/2023 Active Celecoxib 100 MG Oral Capsule (CeleBREX) Take 1 Capsule by mouth in the morning and 1 Capsule before bedtime. 90 Capsule 3 09/09/2023 Active Additional Information Patient not taking.Reported on 11/17/2023 azaTHIOprine 50 MG Oral Tablet (Imuran) Take 1 Tablet by mouth in the morning. 60 Tablet 3 09/26/2023 Active Naltrexone HCl 50 MG Oral Tablet (Revia) Take 1 Tablet by mouth in the morning. 30 Tablet 5 10/08/2023 Active Diclofenac Sodium 1 % External Gel (Voltaren) APPLY TO AFFECTED AREA 4 TIMES A DAY 100 g 1 10/22/2023 Active busPIRone HCl 10 MG Oral Tablet (Buspar)Indications: Anxiety state,Adjustment disorder with depressed mood TAKE 1 TABLET BY MOUTH IN THE MORNING, 1 AT NOON AND 1 BEFORE BEDTIME 20 Tablet 0 11/12/2023 Active documented as of this encounter (statuses as of 11/27/2023) Active Problems Problem Noted Date Diagnosed Date Pain in both feet 05/30/2023 Food insecurity 03/31/2023 Overview: Per [facility] Protocol ILD (interstitial lung disease) 04/12/2021 History of squamous cell carcinoma in situ 11/17 Major depressive disorder, single episode, unspe cified 10/08/2019 Ground glass opacity present on imaging of lung 10/01/2019 Atelectasis of both lungs 10/01/2019 Dysphagia 10/01/2019 GERD (gastroesophageal reflux disease) 9 Major depressive disorder wi th single episode, in partial remission 07/09/2019 Squamous cell carcinoma in situ (SCCIS) of scalp 11/25/2018 Generalized osteoarthritis 10/26/2018 Restless legs syndrome 11/03/2017 Encounter for therapeutic drug monitoring 2016 MEDICATION USE AGREEMENT 07/02/2017 CMC arthritis 09/19/2016 Polymyositis 09/19/2016 S/P Americo fundoplication (w ithout gastrostomy tube) procedure 05/21/2016 Osteoarthritis of hand 05/22/2012 BMI 35-39 ISOLATED (SEE ACTUAL BMI) 03/05/2010 Overview: Per Obesity Protocol, #19 HTN, GOAL BELOW 140/90 08/10/2009 Overview: Modified per HTN protocol #16. ADVANCE DIRECTIVE INFORMATION 05/17/2009 Overview: Yes, Patient instructed to provide copy of advance directive for provider to review and to be scanned into Electronic Medical Record Other chronic sinusitis 09/23/2005 Overview: Dr. Tenorio Allergic rhinitis 09/23/2005 Overview: Dr. Tenorio Acquired hypothyroidism Osteoarthritis of knee Osteoarthritis of hip Anxiety state Diverticulitis large intesti ne w/o perforation or abscess w/o bleeding Hyperlipidemia with target LDL less than 160 Overview: ICD-10 update of inactive term documented as of this encounter (statuses as of 11/27/2023) Resolved Problems Problem Noted Date Diagnosed Date Resolved Date Occupational exposure in workplace 04/12/2021 01/28/2023 Prediabetes 05/01/2020 11/30/2020 Overview: Per Prediabetes protocol ILD (interstitial lung disease) 10/08/2019 03/23/2020 KING (dyspnea on exertion) 10/01/2019 Adenomatous colon polyp 05/21/201611/21 Kidney disease, chronic, sta ge III (GFR 30-59 ml/min) 02/10/2012 06/15/2013 Overview: Per CKD protocol #1 Encounter for long-term (cur rent) use of medications 02/21/2011 04/04/2021 Overview: ICD-10 update of inactive term HTN, GOAL BELOW 140/90 08/10/200905/14 Overview: Modified per HTN protocol #16. Sleep behavior disorder, REM 12/10/2018 Adjustment disorder with depressed mood 07/18/2020 Dyslipidemia, goal to be determined 12/14/2013 HTN, goal to be determined 1 10/14/2008 Overview: Modified per HTN protocol #16. HTN, goal to be determined 1 10/14/2008 Overview: Modified per HTN protocol #16. documented as of this encounter (statuses as of 11/27/2023) Immunizations Name Administration Dates Next Due COVID-19 mRNA, LNP-s, No Pre serve, 2-Dose Series (Moderna) 06/12/2021,11/23/2020,10/26/2020 DTWP - Dipth/Tet/Whole Cell Pertussis 06/22/2007 Pneumococcal Conjugate Vacc, 13 Valent (Prevnar) 06/23/2015 Pneumococcal Polysaccharide PPV23 (Pneumovax) 10/04/2016 Season Influenza, Quad, PF, Adjuvanted, 65+ Yrs, IM (FLUAD) 07/18/2020 Seasonal Influenza Virus Vac cine, Unspecified Formulation 05/23/2022,06/12/2021,07/18/2020,06/29,07/24/2018,05/31/2017,06/28/2016 ,05/26/2014,06/15/2013,07/01/2012,06/23,08/09/2010,08/26/2009, 8 Seasonal Influenza, PF, 6 M & above, IM , (FluLaval or Fluzone) 07/24/2018 Seasonal Influenza, Quadriva lent Hd (Fluzone Hd) 06/23/2023,05/23/2022,06/12/2021 Seasonal Influenza, Quadriva lent, No Preserve, IM 06/28/2016,06/23/2015 Seasonal Influenza, Split, I IV3, With Preserve, Inj 05/26/2014,06/15/2013,07/01/2012,07/17,08/09/2010,08/26/2009,08/31/2008 Seasonal Influenza, Trivalen t, Adjuvanted, 65+ yrs 06/29/2019 Seasonal Influenza, Trivalen t, High Dose, No Preserve, IM 05/31/2017 TDAP (age 10 and older)(Boostrix) 08/09/2019 Zoster Vaccine Recombinant (Shingrix) 11/06/2021 ,08/02/2021 documented as of this encounter Social History Tobacco Use Types Packs/Day Years Used Date Smoking Tobacco: Never Passive Smoke Exposure: Past Smokeless Tobacco: Never Alcohol Use Standard Drinks/Week Comments Not Currently 0 (1 standard drink = 0.6 oz pur e alcohol) seldom PHQ-2 Answer Date Recorded PHQ Adult Total Score 2 03/21/2023 Hunger Vital Sign Answer Date Recorded Within the past 12 months, y ou worried that your food would run out before you got the money to buy more. Never true Within the past 12 months, t he food you bought just didn't last and you didn't have money to get more. Sometimes true Sex and Gender Information Value Date Recorded Sex Assigned at Female 05/03/2019 2:11 PM EDT Gender Identity Female 05/03/2019 2:11 PM EDT Sexual Orientation Straight 03/06/2023 8: 56 AM EDT Job Start Date Occupation Industry Not on file Not on file Not on file documented as of this encounter Miscellaneous Notes * Telephone Encounter - Cynthia Cortez OSA - 11/27/2023 10:13 AM EST Per Aleyda Maldonado, [facility] called stating they no longer need a Pre Op because they have updated labs and documentation. Pre Op Appointment is no longer needed. 11/27/2023 * Telephone Encounter - Em Baxter PA-C - 11/26/2023 12:45 PM EST Needs ov Not seen in person in office since June Em Baxter PA-C 11/26/2023 12:45 PM * Telephone Encounter - Alicia Azevedo OSA - 11/26/2023 12:44 PM EST 11/26/23 Rec paperwork from [facility] for Pre-op Clearance. Paperwork needs completed and faxed back STAT. Surgery scheduled for November 27.. Paperwork placed in provider's mail bin. * Telephone Encounter - Priti Galdamez OSA - 11/26/2023 8:10 AM EST Received a call asking if fax was received by office. Name/Company sending fax: [facility] What fax is pertaining to: labs Date(s) they sent request: 11.25.2023 Verified fax number they are sending to is correct (Y or N): y Callback Number for the clinic to call to verified if fax was received: [phone] Patient is scheduled for surgery on Friday11.28.2023. Olamide would like office to verify if patientis cleared for surgery due to low sodium level. Please call Olamide back to advise or fax letter of clearance to [phone] documented in this encounter Plan of Treatment Upcoming Encounters Date Type Department Care Team (Latest Contact Info) Description 12/10/2023 10:30 AM EDT Telemedicine Pharmacy, [facility] [address] [place] [address] [facility] [address] [place] [address] 12/11/2023 9:15 AM EDT Office Visit Orthopaedics [facility] [address] [place] [address] Vega Farah DO [address] [facility] [place] [address] 12/24/2023 9:50 AM EDT Office Visit [address] [place] [phone] Uma Mark [address] [place] [address] [place] [address] 01/14/2024 10:55 AM EDT Hospital Encounter OR [facility], Operating Room [facility] [address] [place] [phone] Natan Collins, DO [address] [place] [address] 01/14/2024 10:55 AM EDT - 01/14/2024 11:20 AM EDT Surgery OR [facility], Operating Room [facility] [address] [place] [phone] Natan Collins, DO [address] [place] [phone] INJECTION SACROILIAC JOINT 03/03/2024 3:00 PM EDT Office Visit Cosmetic Surgery & Aesthetics [place] [address] [place] [address] Nikky Trinidad MD [address] [place] [address] 03/24/2024 8:30 AM EDT Office Visit Rheumatology [place] [address] [facility] [place] [address] Lance Castanon CRNP [facility] [place] [address] Scheduled Procedures Name Priority Associated Diagnoses Date/Ti me INJECTION SACROILIAC JOINT Inflammation of sacroiliac joint (HCC) 01/14/2024 10:55 AM EDT COLONOSCOPY FLEXIBLE PROXIMAL DIAGNOSTIC Recall History of colon polyps Health Maintenance Due Date Last Done Comments Depression Screening 03/21/2024 03/21/2023 Mammogram 04/18/2024 04/18/2023, 03/23, 04/15/2022, Additional history exists TSH 06/23/2024 06/23/2023, 09/0 09/2021, 04/12/2021, Additional history exists DXA Scan 10/28/2024 10/28/2017, 09/2009, 10/23/2009 GFR 10/28/2024 10/28/2023, 12/2023, 09/11/2023, Additional history exists Albumin/Creatinine Ratio 06/23/2026 023, 05/23/2022, 07/01/2012, Additional history exists COLONOSCOPY-EVERY 5 YRS AGES 18-100 10/03/2026 10/03/2021, 10/03/2021, 02/17/2018, Additional history exists Lipid Panel 05/23/2027 05/23/2022, 03/23, 04/07/2020, Additional history exists DTaP,Tdap,and Td Vaccines (3 - Td or Tdap) 08/09/2029 08/09/2019, 06/22/2007 COLONOSCOPY-EVERY 3 YRS AGES 18-100 Discontinued 10/03/2021, 10/03/2021, 02/17/2018, Additional history exists Zoster Vaccines Completed 11/06/2021, 08/02/2021 Influenza Vaccine (FLU shot) Completed 06/23/2023, 05/23/2022, 05/23/2022, Additional history exists COVID-19 Vaccine Completed 08/28/2023, , 11/23/2020, Additional history exists Pneumococcal Vaccine: 65+ Years Completed 09/01/2023, 10/04/2016, 06/23/2015 GARDASIL-HPV IMMUNIZATION SERIES Aged Out No longer eligible based on patient's age to complete this topic Hepatitis B Aged Out No longer eligi ble based on patient's age to complete this topic MENINGOCOCCAL (MENACTRA/MENVEO) Aged Out No longer eligible based on patient's age to complete this topic documented as of this encounter Medical Devices Not on filedocumented as of this encounter Advance Directives Documents on File Type Date Recorded Patient Director Of Anesthesia Services Expl anation Power of Animal Behaviorist 08/28/2016 POWER OF A TTORNEY POWER OF AIRCRAFT MAGNETO MECHANIC [facility] Care Teams Top Steep Tender Relationship Specialty Start Date End Date Uma Mark DO [address] [place] [address] PCP - General Family Medicine 12/20/22 documented as of this encounter
--- OUTSIDE RECORDS SUMMARY | 2023-11-28 23:06 | External Medical Summary | Summary of Care ---
Author Name Unknown Organization [facility] Address [address] [facility] [place] [address] Phone [phone] Care Team Providers Care Manager Completions Name Role Phone Uma Mark DO Primary Care Provider [phone] Reason for Visit * Reason Onset Date Comments FYI 11/25/2023 Right shoulder Encounter Details Date Type Department Care Team (Late st Contact Info) Description 11/25/2023 Telephone Access Center, [facility] [address] [facility] *DO NOT REMOVE THIS DEPARTMENT* [place] [address] Services, Scheduling [address] [facility] [place] [address] FYI (Right shoulder) Allergies Active Allergy Reactions Criticality Noted Date [...] 0.1 % Nasal Solution (Astelin) Administer 1 [place] into nostril in the morning and 1 [place] before bedtime. 30 mL 12 02/25/2023 Active [...] feet 05/30/2023 Food insecurity 03/31/2023 Overview: Per [facility] Protocol ILD (interstitial lung disease) 04/12/2021 [...] encounter Miscellaneous Notes * Telephone Encounter - Ofelia Rivero OSA - 11/27/2023 9:51 AM EST [facility] from [facility] Anaesthesia dept called & stated they no longer need a clearance. * Telephone Encounter - Joselin Morales OSA - 11/25/2023 1:57 PM EST Pt called to say she missed her telemed appointment (phone) with [facility] yesterday about her right shoulder. She states she doesn't need to reschedule because she is felling better and doesn't want any injections at this time. documented in this encounter Plan of Treatment Upcoming Encounters Date Type Department Care Team (Latest Contact Info) Description 12/10/2023 10:30 AM EDT Telemedicine Pharmacy, [place] [place] [address] [facility] [place] [address] 12/11/2023 9:15 AM EDT Office Visit Orthopaedics [address] [place] [address] Vega Farah, DO [address] [place] [address] 12/24/2023 9:50 AM EDT Office Visit [facility] [address] [facility] [place] [place] [address] Uma Mark, DO [address] [place] [facility] [address] 01/14/2024 10:55 AM EDT Hospital Encounter OR [facility], Operating Room [facility] [address] [place] [phone] Natan Collins, DO [address] [place] [phone] 01/14/2024 10:55 AM EDT - 01/14/2024 11:20 AM EDT Surgery OR [facility], Operating Room [facility] [address] [place] [phone] Natan Collins, DO [address] [place] [address] INJECTION SACROILIAC JOINT 03/03/2024 3:00 PM EDT Office Visit Cosmetic Surgery & Aesthetics [facility] [address] [place] [address] Nikky Trinidad MD [address] [place] [address] 03/24/2024 8:30 AM EDT Office Visit Rheumatology [place] [address] [facility] [place] [address] Lance Castanon CRNP [facility] [address] [facility] [place] [address] Scheduled Procedures Name Priority Associated Diagnoses Date/Ti me INJECTION SACROILIAC JOINT Inflammation of sacroiliac joint (HCC) 01/14/2024 10:55 AM EDT COLONOSCOPY FLEXIBLE PROXIMAL DIAGNOSTIC Recall History of colon polyps Health Maintenance Due Date Last Done Comments Depression Screening 03/21/2024 03/21/2023 Mammogram 04/18/2024 04/18/2023, 03/23, 04/15/2022, Additional history exists TSH 06/23/2024 06/23/2023, 09/2021, 04/12/2021, Additional history exists DXA Scan 10/28/2024 10/28/2017, 0 09/2009, 10/23/2009 GFR 10/28/2024 10/28/2023, 0 12/2023, 09/11/2023, Additional history exists Albumin/Creatinine Ratio [...] Documents on File Type Date Recorded Patient Security Officer Supervisor Expl anation Power of Associate Professor Of Economics 08/28/2016 POWER OF A TTORNEY POWER OF TAG WRITER [facility] Care Teams Manager Completions Relationship Specialty Start Date End Date Uma Mark DO [address] [place] [facility] [place] [address] PCP - General Family Medicine 12/20/22 documented as of this encounter
--- OUTSIDE RECORDS SUMMARY | 2023-11-28 23:06 | External Medical Summary | Summary of Care ---
Author Name Unknown Organization [facility] Address [address] [place] [address] Phone [phone] Care Team Providers Care Greige Goods Marker Name Role Phone Uma Mark DO Primary Care Provider [phone] Reason for Visit * Reason Onset Date Comments Fax 11/26/2023 Letter Requests 11/26/2023 Encounter Details Date Type Department Care Team (Late st Contact Info) Description 11/26/2023 Telephone [facility] [address] [place] [address] Uma Mark DO [address] [place] [address] Fax; Letter Requests Allergies Active Allergy Reactions Criticality Noted Date Comments Diphenhydramine 06/12/2023 HALLUCINATIONS. Gabapentin 10/10/2022 Retained fluid Lisinopril Cough 08/09/2019 Pregabalin Other (Please comment) 02/14/2023 Hot all over " I felt like I was on fire inside and out" Morphine Sulfate 07/19/2010 Lowers her blood pressure documented as of this encounter (statuses as of 11/26/2023) Medications Medication Sig Dispensed Refills Start Date [...] 0.1 % Nasal Solution (Astelin) Administer 1 [place] into nostril in the morning and 1 [place] before bedtime. 30 mL 12 02/25/2023 Active [...] as of this encounter (statuses as of 11/26/2023) Active Problems Problem Noted Date Diagnosed Date Pain in both feet 05/30/2023 Food insecurity 03/31/2023 Overview: Per [facility] Protocol ILD (interstitial lung disease) 04/12/2021 [...] as of this encounter (statuses as of 11/26/2023) Resolved Problems Problem Noted Date Diagnosed Date [...] as of this encounter (statuses as of 11/26/2023) Immunizations Name Administration Dates Next Due COVID-19 [...] encounter Miscellaneous Notes * Telephone Encounter - Em Baxter PA-C [...] call to verified if fax was received: [phone] Patient is scheduled for surgery on Friday11.28.2023. Olamide would like office to verify if patientis cleared for surgery due to low sodium level. Please call Olamide back to advise or fax letter of clearance to [phone] documented in this encounter Plan of Treatment Upcoming Encounters Date Type Department Care Team (Latest Contact Info) Description 11/26/2023 3:40 PM EST Office Visit Cosmetic Surgery & Aesthetics [place] [address] [place] [address] Nikky Trinidad MD [address] [place] [address] 12/10/2023 10:30 AM EDT Telemedicine Pharmacy, [facility] [address] [facility] [place] [address] [facility] 132 [facility] [place] [address] 12/11/2023 9:15 AM EDT Office Visit Orthopaedics [facility] [address] [facility] [place] [address] Vega Farah, 132 [facility] [place] [address] 12/24/2023 9:50 AM EDT Office Visit [address] [phone] Uma Mark DO [address] [place] [address] 01/14/2024 10:55 AM EDT Hospital Encounter OR [facility], Operating Room [facility] [address] [place] [address] Natan Collins, DO [address] [place] [address] 01/14/2024 10:55 AM EDT - 01/14/2024 11:20 AM EDT Surgery OR [facility], Operating Room [facility] [address] [place] [phone] Natan Collins, DO [address] [place] [phone] INJECTION SACROILIAC JOINT 03/24/2024 8:30 AM EDT Office Visit Rheumatology [place] [address] [facility] [place] [address] Lance Castanon CRNP [facility] [place] [address] Scheduled Procedures Name Priority Associated Diagnoses Date/Ti [...] Documents on File Type Date Recorded Patient Cancer Center Director Expl anation Power of Flatbed Truck Driver 08/28/2016 POWER OF A TTORNEY POWER OF GYMNASIUM TEACHER [facility] Care Teams Greige Goods Marker Relationship Specialty Start Date End Date Uma Mark DO [address] [facility] [place] [address] PCP - General Family Medicine 12/20/22 documented as of this encounter
--- OUTSIDE RECORDS SUMMARY | 2023-11-28 23:06 | External Medical Summary | Summary of Care ---
Author Name Unknown Organization [facility] Address [address] [place] [address] Phone [phone] Care Team Providers Care Automation Architect Name Role Phone Uma Mark DO Primary Care Provider Reason for Visit * Reason Onset Date Comments Fax 11/26/2023 Letter Requests 11/26/2023 Encounter Details Date Type Department Care Team (Late st Contact Info) Description 11/26/2023 Telephone [facility] [address] [place] [address] Uma Mark DO [address] [place] [address] Fax; Letter Requests Allergies Active [...] 0.1 % Nasal Solution (Astelin) Administer 1 [place] into nostril in the morning and 1 [place] before bedtime. 30 mL 12 02/25/2023 Active [...] feet 05/30/2023 Food insecurity 03/31/2023 Overview: Per [facility] Protocol ILD (interstitial lung disease) 04/12/2021 [...] call to verified if fax was received: [phone] Patient is scheduled for surgery on Friday11.28.2023. Olamide would like office to verify if patientis cleared for surgery due to low sodium level. Please call Olamide back to advise or fax letter of clearance to [phone] documented in this encounter Plan of Treatment Upcoming Encounters Date Type Department Care Team (Latest Contact Info) Description 11/26/2023 3:40 PM EST Office Visit Cosmetic Surgery & Aesthetics [place] Wright [address] [place] [address] Nikky Trinidad MD [address] [place] [address] 12/10/2023 10:30 AM EDT Telemedicine Pharmacy, [facility] [address] [facility] [place] [address] [facility] [address] [facility] [place] [address] 12/11/2023 9:15 AM EDT Office Visit Orthopaedics [facility] [address] [facility] [place] [address] Vega Farah, 132 [facility] [place] [address] 12/24/2023 9:50 AM EDT Office Visit [address] [phone] Uma Mark DO [address] [place] [address] 01/14/2024 10:55 AM EDT Hospital Encounter OR [facility], Operating Room [facility] [address] [place] [address] Natan Collins, DO [address] [place] [address] 01/14/2024 10:55 AM EDT - 01/14/2024 11:20 AM EDT Surgery OR [facility], Operating Room [facility] [address] [place] [address] Natan Collins, DO [address] [place] [phone] INJECTION SACROILIAC JOINT 03/24/2024 8:30 AM EDT Office Visit Rheumatology [place] [address] [place] [address] Lance Castanon CRNP [facility] [place] [address] Scheduled Procedures Name Priority Associated Diagnoses Date/Ti [...] Documents on File Type Date Recorded Patient Pressing Department Supervisor Expl anation Power of Advertising Sales Manager 08/28/2016 POWER OF A TTORNEY POWER [facility] Care Teams Automation Architect Relationship Specialty Start Date End Date Uma Mark DO [address] [facility] [place] [id number] PCP - General Family Medicine 12/20/22 documented as of this encounter
--- OUTSIDE RECORDS SUMMARY | 2023-11-28 23:07 | External Medical Summary | Summary of Care ---
Author Name Unknown Organization [facility] Address [address] [place] [address] Phone [phone] Care Team Providers Care Medicare Contact Specialist Name Role Phone Uma Mark DO Primary Care Provider Encounter Details Date Type Department Care Team (Late st Contact Info) Description 2023 Telephone [facility] [address] [place] [address] Uma Mark DO [address] [place] [address] Allergies Active Allergy Reactions Criticality Noted Date Comments Diphenhydramine 06/12/2023 HALLUCINATIONS. Gabapentin 10/10/2022 Retained fluid Lisinopril Cough 08/09/2019 Pregabalin Other (Please comment) 02/14/2023 Hot all over " I felt like I was on fire inside and out" Morphine Sulfate 07/19/2010 Lowers her blood pressure documented as of this encounter (statuses as of 11/19/2023) Medications Medication Sig Dispensed Refills Start Date End Date Status CALCIUM 600 600 MG PO TABSIndications:in pm Take by mouth. 0 Active OCUVITE EXTRA PO TABS once daily 0 06/15/20 13 Active ECOTRIN LOW STRENGTH 81 MG PO TBEC One pill by mouth once a day 100 Tab 5 12/15/19 14 Active Cyanocobalamin 1000 MCG Oral TabletIndications:a t lunchtime Take 1 Tablet by mouth in the morning. 0 12/28/19 16 Active Magnesium 250 MG Tablet Take 1 Tablet by mouth in the morning. 0 Active Cholecalciferol (VITAMIN D-3) 5000 units Tablet Take 1 Tablet by mouth in the morning. 0 Active Docusate Sodium 100 MG Oral Capsule Take 1 Capsule by mouth in the morning and 1 Capsule before bedtime. 0 Active Amoxicillin 500 MG Oral Capsule (Amoxil) 0 05/31/20 21 Active Tuberculin Syringe 27G X 1/2" 1 ML (BD TB Syringe) USE TO INJECT METHOTREXATE 12 Each 3 07/18/20 22 Active Ferrous Sulfate 325 (65 Fe) MG Oral Tablet (Feosol) One pill every other day 90 Tablet 1 02/21/20 23 Active buPROPion HCl ER (SR) 150 MG Oral Tablet Extended Release 12 Hour (Wellbutrin SR) Take 1 Tablet by mouth in the morning. In the morning.. 30 Tablet 1 02/21/20 23 Active Azelastine HCl 0.1 % Nasal Solution (Astelin) Administer 1 [place] into nostril in the morning and 1 [place] before bedtime. 30 mL 12 02/26/20 23 Active traZODone HCl 100 MG Oral Tablet (Desyrel) Take 1 Tablet by mouth at bedtime. 2 at bedtime 180 Tablet 0 04/02/20 23 Active Rosuvastatin Calcium 5 MG Oral Tablet (Crestor)Indication s:Hyperlipidemia TAKE 1 TABLET BY MOUTH EVERY DAY IN THE MORNING 90 Tablet 1 04/10/20 23 Active Fluticasone Propionate 50 MCG/ACT Nasal Suspension (Flonase)Indication s:Allergic rhinitis SPRAY 2 SPRAYS INTO EACH NOSTRIL IN THE MORNING 48 mL 1 05/22/20 23 Active tiZANidine HCl 2 MG Oral Tablet (Zanaflex) Take 1-2 tablets by mouth at night as needed for pain or muscle spasm and tightness 180 Tablet 3 06/02/20 23 Active Folic Acid 1 MG Oral Tablet TAKE 1 TABLET BY MOUTH EVERY DAY IN THE MORNING 90 Tablet 1 06/16/20 23 Active Loratadine 10 MG Oral Tablet (Claritin)Indicatio ns:Other chronic sinusitis TAKE 1 TABLET BY MOUTH EVERY DAY IN THE MORNING 90 Tablet 1 06/16/20 23 Active Lysine 500 MG Oral Tablet Take by mouth. 0 Active DULoxetine HCl 30 MG Oral Capsule Delayed Release Particles (Cymbalta) Take 1 Capsule by mouth in the morning. Take along with 60mg capsule. Total dose or 90mg.. 90 Capsule 3 06/23/20 23 Active DULoxetine HCl 60 MG Oral Capsule Delayed Release Particles (Cymbalta)Indicatio ns:Primary osteoarthritis of both hands,Primary osteoarthritis of both knees,Primary osteoarthritis of hip, unspecified laterality TAKE 1 CAPSULE BY MOUTH EVERY MORNING 30 Capsule 5 07/11/20 23 Active Lidocaine Viscous HCl 2 % Mouth/Throat SolutionIndications :Thrush SWISH AND SPIT EVERY 2 HOURS NEEDED FOR PAIN, BREAKTHROUGH. 100 mL 0 07/18/20 23 Active valACYclovir HCl 500 MG Oral Tablet (Valtrex)Indication s:Oral ulcer TAKE 1 TABLET BY MOUTH IN THE MORNING. FOR TRANSMISSION REDUCTION. 90 Tablet 1 07/22/20 23 Active Cyproheptadine HCl 4 MG Oral Tablet (Periactin)Indicati ons:in evening 1 tablet daily 90 Tablet 5 07/28/20 23 Active Losartan Potassium 50 MG Oral Tablet (Cozaar)Indications :HTN, goal below 140/90 Take 1 Tablet by mouth in the morning and 1 Tablet before bedtime. 180 Tablet 1 08/06/20 23 Active Levothyroxine Sodium 88 MCG Oral Tablet (Levoxyl)Indication s:Hypothyroidism TAKE 1 TABLET BY MOUTH EVERY MORNING ON AN EMPTY STOMACH 90 Tablet 3 08/06/20 23 Active Pramipexole Dihydrochloride 0.25 MG Oral Tablet (Mirapex)Indication s:Restless legs syndrome TAKE 1 TABLET BY MOUTH IN THE MORNING, 1 AT NOON AND 1 BEFORE BEDTIME 270 Tablet 1 08/07/20 23 Active Omeprazole 20 MG Oral Capsule Delayed Release (PriLOSEC)Indicatio ns:Gastroesophageal reflux disease without esophagitis TAKE 1 CAPSULE IN THE MORNING AND 1 CAPSULE BEFORE BEDTIME (DOSE INCREASE) 180 Capsule 0 09/02/20 23 Active busPIRone HCl 10 MG Oral Tablet (Buspar)Indications :Anxiety state,Adjustment disorder with depressed mood Take 1 Tablet by mouth in the morning and 1 Tablet at noon and 1 Tablet before bedtime. 20 Tablet 0 02/21/20 23 024 Discontinued magic swizzle 15 ML OR Take 30 mL by mouth in the morning and 30 mL at noon and 30 mL in the evening and 30 mL before bedtime. Coat mouth ulcers. 120 mL 1 06/13/20 23 024 Discontinued(Julien grant preference/disc ontinuation) Diclofenac Sodium 1 % External Gel (Voltaren) APPLY TO AFFECTED AREA 4 TIMES A DAY 100 g 1 07/23/20 23 024 Discontinued documented as of this encounter (statuses as of 11/19/2023) Active Problems Problem Noted Date Diagnosed Date [...] as of this encounter (statuses as of 11/19/2023) Resolved Problems Problem Noted Date Diagnosed Date [...] determined 12/14/2013 HTN, goal to be determined 10/14/2008 Overview: Modified per HTN protocol #16. HTN, goal to be determined 1 10/14/2008 Overview: Modified per HTN protocol #16. documented as of this encounter (statuses as of 11/19/2023) Immunizations Name Administration Dates Next Due COVID-19 [...] encounter Miscellaneous Notes * Telephone Encounter - Bere Tamez LPN - 09/02/2023 1:17 PM EST Contacted office and obtained fax number [phone]; DME faxed * Telephone Encounter - Adeline Dozier LPN - 08/29/2023 2:45 PM EST If [facility] calls back, please obtain a fax number for us to send the DME to * Telephone Encounter - Nilo Treadwell OSA - 2023 3:34 PM EST Aletha with with [employer] asks that a refill form on Pt's incontinents supplies befilled out and sent back in so Pt can have what's needed for the next couple months documented in this encounter Plan of Treatment Upcoming Encounters Date Type Department Care Team (Latest Contact Info) Description 11/24/2023 3:45 PM EST Telemedicine Orthopaedics, [place] [address] [place] [address] [place] [address] Colin Blum PA-C [address] [place] [address] 11/26/2023 3:40 PM EST Office Visit Cosmetic Surgery & Aesthetics [place] Wright [address] [place] [phone] Nikky Trinidad MD 16 [facility] [place] [address] 12/10/2023 10:30 AM EDT Telemedicine Pharmacy, [facility] [address] [place] [address] [facility] [address] [place] [address] 12/11/2023 9:15 AM EDT Office Visit Orthopaedics [facility] [address] [place] [address] Vega Farah, DO [address] [place] [address] 12/24/2023 9:50 AM EDT Office Visit [address] [phone] Uma Mark, [address] [place] [address] 01/14/2024 10:55 AM EDT Hospital Encounter OR [facility], Operating Room [facility] [address] [place] [phone] Natan Collins, DO [address] [place] [phone] 01/14/2024 10:55 AM EDT - 01/14/2024 11:20 AM EDT Surgery OR [facility], Operating Room [facility] [address] [place] [phone] Natan Collins, DO [address] [place] [phone] INJECTION SACROILIAC JOINT 03/24/2024 8:30 AM EDT Office Visit Rheumatology [address] [place] [address] Lance Castanon CRNP [address] [place] [address] Scheduled Procedures Name Priority Associated Diagnoses Date/Ti [...] 10/28/2024 10/28/2017, 09/2009, 10/23/2009 GFR 10/28/2024 10/28/2023, 08/23, 03/14/2023, Additional history exists Albumin/Creatinine Ratio 06/23/2026 023, [...] Not on filedocumented as of this encounter Visit Diagnoses Diagnosis Female stress incontinence- Primary Inflammation of sacroiliac joint (HCC) Sacroiliitis, not elsewhere classified documented in this encounter Advance Directives Documents on File Type Date Recorded Patient International Project Manager Expl anation Power of Syrup Mixer Assistant 08/28/2016 POWER OF A TTORNEY POWER OF STONEWORK TRACER INFO Care Teams Medicare Contact Specialist Relationship Specialty Start Date End Date Uma Mark DO [address] [place] [address] PCP - General Family Medicine 12/20/22 documented as of this encounter
--- OUTSIDE RECORDS SUMMARY | 2023-11-28 23:07 | External Medical Summary | Summary of Care ---
Author Name Unknown Organization [facility] Address [address] [facility] [place] [address] Phone [phone] Care Team Providers Care Extension Supervisor Name Role Phone Uma Mark DO Primary Care Provider Reason for Visit * Evaluate & Treat - Unlimited Visits (Within 10 days (routine)) - Authorized Specialty Diagnoses / Procedures Referred By Contramirez t Referred To Contact Orthopaedic Surgery / Orthopedics Diagnoses Generalized osteoarthritis Blanca Bedolla PA-C [address] [facility] [address] [place] [address] Referral ID Status Reason Start Date Expiration Date Visits Requested Visits Authorized [id number] Authorized Specialty Services Required 01/02/2023 01/03/[phone] Encounter Details Date Type Department Care Team (Latest Contact Info) Description 11/24/2023 3:45 PM EST Telemedicine Orthopaedics, [place] [address] [place] [address] Colin Blum PA-C [address] [place] [address] Osteoarthritis of right acromioclavicular joint* Allergies Active Allergy Reactions Criticality Noted Date Comments Diphenhydramine 06/12/2023 HALLUCINATIONS. Gabapentin 10/10/2022 Retained fluid Lisinopril Cough 08/09/2019 Pregabalin Other (Please comment) 02/14/2023 Hot all over " I felt like I was on fire inside and out" Morphine Sulfate 07/19/2010 Lowers her blood pressure documented as of this encounter (statuses as of 11/24/2023) Medications Medication Sig Dispensed Refills Start Date [...] 0.1 % Nasal Solution (Astelin) Administer 1 [place] into nostril in the morning and 1 [place] before bedtime. 30 mL 12 02/25/2023 Active [...] as of this encounter (statuses as of 11/24/2023) Active Problems Problem Noted Date Diagnosed Date Pain in both feet 05/30/2023 Food insecurity 03/31/2023 Overview: Per [facility] Protocol ILD (interstitial lung disease) 04/12/2021 [...] as of this encounter (statuses as of 11/24/2023) Resolved Problems Problem Noted Date Diagnosed Date [...] as of this encounter (statuses as of 11/24/2023) Immunizations Name Administration Dates Next Due COVID-19 [...] on file documented as of this encounter Progress Notes * Colin Blum PA-C - 11/24/2023 3:47 PM EST After connecting to the patient via telephone, the patient was identified by name and date of . Patient was then informed that this was a telephone call only visit. The patient agreed to participate. Visit Disposition: Routine follow-up Total call duration was 0 minutes. Left message for the patient to call or let me know how her right shoulder is feeling after the anatomically driven right AC joint corticosteroid injection. Minimal relief and we have discussed previously that I would refer to our Sports Medicine team for ultrasound guidance. The patient was instructed to either message me or call the office directly and I would be happy to speak with further with a subsequent telephonic or call patient back and discuss results, whichever they prefer. documented in this encounter Plan of Treatment Upcoming Encounters Date Type Department Care Team (Latest Contact Info) Description 11/26/2023 3:40 PM EST Office Visit Cosmetic Surgery & Aesthetics [place] [address] [place] [address] Nikky Trinidad MD [address] [place] [address] 12/10/2023 10:30 AM EDT Telemedicine Pharmacy, [facility] [address] [place] [address] [facility] [address] [place] [address] 12/11/2023 9:15 AM EDT Office Visit Orthopaedics [facility] [address] [place] [address] Vega Farah, DO [address] [place] [address] 12/24/2023 9:50 AM EDT Office Visit [address] [place] [phone] Uma Mark, [address] [address] 01/14/2024 10:55 AM EDT Hospital Encounter OR [facility], Operating Room [facility] [address] [place] [phone] Natan Collins, DO [address] [place] [phone] 01/14/2024 10:55 AM EDT - 01/14/2024 11:20 AM EDT Surgery OR [facility], Operating Room [facility] [address] [place] [address] Natan Collins DO [address] [place] [address] INJECTION SACROILIAC JOINT 03/24/2024 8:30 AM EDT Office Visit Rheumatology [facility] [address] [place] [place] [address] Lance Castanon CRNP [address] [place] [address] Scheduled Procedures Name Priority Associated Diagnoses Date/Ti [...] as of this encounter Visit Diagnoses Diagnosis Osteoarthritis of right acromioclavicular joint- Primary Inflammation of sacroiliac joint (HCC) Sacroiliitis, not elsewhere classified documented in this encounter Advance Directives Documents on File Type Date Recorded Patient Cruise Counselor Expl anation Power of Locomotive Engineer Electric 08/28/2016 POWER OF A TTORNEY POWER OF TRACTOR CRANE ENGINEER INFO Care Teams Extension Supervisor Relationship Specialty Start Date End Date Uma Mark DO [address] [place] [address] PCP - General Family Medicine 12/20/22 documented as of this encounter
--- OUTSIDE RECORDS SUMMARY | 2023-11-28 23:07 | External Medical Summary | Summary of Care ---
Author Name Unknown Organization [facility] Address [address] [place] [address] Phone [phone] Care Team Providers Care Driver/Refuse Collector Name Role Phone Uma Mark DO Primary Care Provider Encounter Details Date Type Department Care Team (Late st Contact Info) Description 11/26/2023 Orders Only [facility] [address] [place] [address] Uma Mark DO [address] [place] [address] Allergies Active Allergy Reactions Criticality [...] 0.1 % Nasal Solution (Astelin) Administer 1 [place] into nostril in the morning and 1 [place] before bedtime. 30 mL 12 02/25/2023 Active [...] on file documented as of this encounter Plan of Treatment Upcoming Encounters Date Type Department Care Team (Latest Contact Info) Description 11/26/2023 3:40 PM EST Office Visit Cosmetic Surgery & Aesthetics [place] Wright [address] [place] [address] Nikky Trinidad MD [address] [place] [facility] [place] [address] 12/10/2023 10:30 AM EDT Telemedicine Pharmacy, [facility] [address] [facility] [place] [address] [facility] [place] [address] 12/11/2023 9:15 AM EDT Office Visit Orthopaedics [facility] [address] [place] [address] Vega Farah DO [address] [place] [address] 12/24/2023 9:50 AM EDT Office Visit [address] [phone] Uma Mark, DO [address] [facility] [address] 01/14/2024 10:55 AM EDT Hospital Encounter OR [facility], Operating Room [facility] [address] [place] [phone] Natan Collins, DO [address] [place] [phone] 01/14/2024 10:55 AM EDT - 01/14/2024 11:20 AM EDT Surgery OR [facility], Operating Room [facility] [address] [place] [phone] Natan Collins, DO [address] [place] [address] INJECTION SACROILIAC JOINT 03/24/2024 8:30 AM EDT Office Visit Rheumatology [address] [place] [address] Lance Castanon CRNP [address] [place] [address] [place] [address] Scheduled Procedures Name Priority Associated Diagnoses Date/Ti [...] 10/28/2017, 0 09/2009, 10/23/2009 GFR 10/28/2024 10/28/2023, 12/2023, 09/11/2023, [...] Not on filedocumented as of this encounter Procedures Procedure Name Priority Date/Time Associated Diagnosis Comments CHEMISTRY-OUTSIDE Routine 10/26/2023 documented in this encounter Results * (ABNORMAL) CHEMISTRY-OUTSIDE (10/26/2023) Not all results display below - see scan for full detail OUTSIDE LAB (SEE SCANNED REPORT) Comment:SCAN INCLUDES - E.R. LABS: CMP CREATININE-OUTSID E LAB 0.62 0.6 - 1.2 MG/DL OUTSIDE LAB (SEE SCANNED REPORT) EGFR-OUTSIDE LAB 90.1 ML/MIN/1.7 3M2 OUTSIDE LAB (SEE SCANNED REPORT) POTASSIUM-OUTSIDE LAB 4.8 3.5 - 5.1 MMOL/L OUTSIDE LAB (SEE SCANNED REPORT) GLUCOSE-OUTSIDE LAB 130(A) 70 - 99 MG/DL OUTSIDE LAB (SEE SCANNED REPORT) HOURS FASTING OUTSID E LAB (SEE SCANNED REPORT) TRIGLYCERIDES-OUT SIDE LAB OUTSIDE LAB (SEE SCANNED REPORT) CHOLESTEROL-OUTSI DE LAB OUTSIDE LAB (SEE SCANNED REPORT) HDL-OUTSIDE LAB OUTS IBETH LAB (SEE SCANNED REPORT) CHOL/HDL RATIO-OUTSIDE LAB OUTSIDE LA B (SEE SCANNED REPORT) LDL (CALCULATED)-OUTS IBETH LAB OUTSIDE LAB (SEE SCANNED REPORT) LDL (DIRECT MEASURE)-OUTSIDE LAB OUTSIDE LAB (SEE SCANNED REPORT) HEMOGLOBIN, [id number] LAB OUTSIDE LAB (SEE SCANNED REPORT) PHOSPHORUS-OUTSID E LAB OUTSIDE LAB (SEE SCANNED REPORT) PTH-OUTSIDE LAB OUTS IBETH LAB (SEE SCANNED REPORT) MICROALBUMIN RATIO-OUTSIDE LAB OUTSIDE LA B (SEE SCANNED REPORT) PROTEIN, UA-OUTSIDE LAB OUTSIDE LAB (SEE SCANNED REPORT) HEMOGLOBIN-OUTSID E LAB OUTSIDE LAB (SEE SCANNED REPORT) 10/26/2023 Ananth Kennedy MD LABORATORY OUTSIDE LAB (SEE SCANNED REPORT) documented in this encounter Advance Directives Documents on File Type Date Recorded Patient Television Actor Expl anation Power of Veneer Press Operator 08/28/2016 POWER OF A TTORNEY POWER OF COMMUNITY HEALTH DIRECTOR INFO Care Teams Driver/Refuse Collector Relationship Specialty Start Date End Date Uma Mark DO [address] [facility] [place] [address] PCP - General Family Medicine 12/20/22 documented as of this encounter
--- OUTSIDE RECORDS SUMMARY | 2023-11-28 23:07 | External Medical Summary | Summary of Care ---
Author Name Unknown Organization [facility] Address [address] [place] [address] Phone [phone] Care Team Providers Care Finish Off Operator Name Role Phone Uma Mark DO Primary Care Provider [phone] Reason for Visit * Reason Onset Date Comments Fax 11/26/2023 Letter Requests 11/26/2023 Encounter Details Date Type Department Care Team (Late st Contact Info) Description 11/26/2023 Telephone [facility] [place] [facility] [address] [place] [address] Uma Mark DO [address] [place] [address] Fax; Letter Requests Allergies Active [...] 0.1 % Nasal Solution (Astelin) Administer 1 Carey into nostril in the morning and 1 Carey before bedtime. 30 mL 12 02/25/2023 Active [...] feet 05/30/2023 Food insecurity 03/31/2023 Overview: Per [email or web address] Protocol ILD (interstitial lung disease) 04/12/2021 [...] call to verified if fax was received: [phone] Patient is scheduled for surgery on Friday11.28.2023. Olamide would like office to verify if patientis cleared for surgery due to low sodium level. Please call Olamide back to advise or fax letter of clearance to [phone] documented in this encounter Plan of Treatment Upcoming Encounters Date Type Department Care Team (Latest Contact Info) Description 11/26/2023 3:40 PM EST Office Visit Cosmetic Surgery & Aesthetics [place] [address] [place] [address] Nikky Trinidad MD [address] [place] [address] 12/10/2023 10:30 AM EDT Telemedicine Pharmacy, [facility] [address] [facility] [place] [address] [facility] 132 [facility] [place] [address] 12/11/2023 9:15 AM EDT Office Visit Orthopaedics [facility] [address] [facility] [place] [address] Vega Farah, 132 [facility] [place] [address] 12/24/2023 9:50 AM EDT Office Visit [address] [phone] Uma Mark DO [address] [place] [address] 01/14/2024 10:55 AM EDT Hospital Encounter [facility], Operating Room [facility] [address] [place] [address] Natan Collins, DO [address] [place] [address] 01/14/2024 10:55 AM EDT - 01/14/2024 11:20 AM EDT Surgery OR [facility], Operating Room [facility] [address] [place] [address] Natan Collins, DO [address] [place] [phone] INJECTION SACROILIAC JOINT 03/24/2024 8:30 AM EDT Office Visit Rheumatology [place] [address] [employer] [place] [address] Lance Castanon CRNP [facility] [employer] [place] [address] Scheduled Procedures Name Priority Associated Diagnoses Date/Ti [...] Documents on File Type Date Recorded Patient Summer School Coordinator Expl anation Power of Insurance Policy Issue Clerk 08/28/2016 POWER OF A TTORNEY POWER OF CHOPPER GUN OPERATOR [facility] Care Teams Finish Off Operator Relationship Specialty Start Date End Date Uma Mark DO [address] [facility] [place] [address] PCP - General Family Medicine 12/20/22 documented as of this encounter
--- OUTSIDE RECORDS SUMMARY | 2023-11-28 23:07 | External Medical Summary | Summary of Care ---
Author Name Unknown Organization [facility] Address [address] [place] [address] Phone [phone] Care Team Providers Care Saturation Diver Name Role Phone Uma Mark DO Primary Care Provider Reason for Visit * Reason Onset Date Comments Medication Problem 11/25/2023 Encounter Details Date Type Department Care Team (Late st Contact Info) Description 11/25/2023 Telephone [facility] [place] [address] [place] [address] Uma Mark DO [address] [place] [address] Medication Problem Allergies Active Allergy Reactions Criticality Noted Date [...] 0.1 % Nasal Solution (Astelin) Administer 1 [place] into nostril in the morning and 1 [place] before bedtime. 30 mL 12 02/25/2023 Active [...] feet 05/30/2023 Food insecurity 03/31/2023 Overview: Per [facility] Protocol ILD (interstitial lung disease) 04/12/2021 [...] encounter Miscellaneous Notes * Telephone Encounter - Judi Maldonado LPN - 11/26/2023 9:00 AM EST Spoke with pt. She stated she has been taking 3 tablets (not as directed on RX) and ran out of meds. She was referral to call her pain management doctor who ordered the tizanidine. Pt stated understanding and will call and informed them she is out of this medication due to taking extra. * Telephone Encounter - Oliver Dumont MD - 11/25/2023 5:17 PM EST Can we find out from pharmacy when he refilled script since 06/02/23 when it was prescribed. * Telephone Encounter - Yue Osei LPN - 11/25/2023 1:09 PM EST Please advise, do you have any suggestions for the patient? * Telephone Encounter - Regla Grant CPhT - 11/25/2023 12:58 PM EST Pt called stating she is experiencing sciatica and increased the tizanidine 2 mg to 3 tablets at night and it's too soon to fill. She also stated she is scheduled for an injection on 01/14/24 with . Pt can be reached at [phone]. Please advise. Thank you, Teresa Grant Program Director/Traffic Director III [facility] 11/25/2023,1:01 PM documented in this encounter Plan of Treatment Upcoming Encounters Date Type Department Care Team (Latest Contact Info) Description 11/26/2023 3:40 PM EST Office Visit Cosmetic Surgery & Aesthetics [facility] [address] [place] [address] Nikky Trinidad MD 16 [place] [address] 12/10/2023 10:30 AM EDT Telemedicine Pharmacy, [facility] 132 [facility] [place] [address] [facility] [address] [facility] [place] [address] 12/11/2023 9:15 AM EDT Office Visit Orthopaedics [facility] 132 [facility] [place] [address] Vega Farah, 132 [facility] [place] [address] 12/24/2023 9:50 AM EDT Office Visit [address] [phone] Uma Mark [address] [address] 01/14/2024 10:55 AM EDT Hospital Encounter OR [facility], Operating Room [facility] [address] [place] [phone] Natan Collins, DO [address] [place] [address] 01/14/2024 10:55 AM EDT - 01/14/2024 11:20 AM EDT Surgery OR [facility], Operating Room [facility] [address] [place] [address] Natan Collins, DO [address] [place] [address] INJECTION SACROILIAC JOINT 03/24/2024 8:30 AM EDT Office Visit Rheumatology [place] [address] [place] [address] Lance Castanon CRNP [facility] [place] [address] Scheduled Procedures Name Priority Associated Diagnoses Date/Ti [...] Documents on File Type Date Recorded Patient Studio Technician Expl anation Power of Test Design Engineer 08/28/2016 POWER OF A TTORNEY POWER OF REFERRAL SPECIALIST INFO Care Teams Saturation Diver Relationship Specialty Start Date End Date Uma Mark DO [address] [place], [place] [phone] PCP - General Family Medicine 12/20/22 documented as of this encounter
--- OUTSIDE RECORDS SUMMARY | 2023-11-28 23:07 | External Medical Summary | Summary of Care ---
Author Name Unknown Organization [facility] Address [address] [place] [address] Phone [phone] Care Team Providers Care Wardrobe Specialty Worker Name Role Phone Uma Mark DO Primary Care Provider Reason for Visit * Reason Onset Date Comments Fax 11/26/2023 Letter Requests 11/26/2023 Encounter Details Date Type Department Care Team (Late st Contact Info) Description 11/26/[address] [facility] [address] [place] [address] Uma Mark DO [address] [place] [address] Fax; Letter Requests Allergies Active [...] 0.1 % Nasal Solution (Astelin) Administer 1 [place] into nostril in the morning and 1 [place] before bedtime. 30 mL 12 02/25/2023 Active [...] feet 05/30/2023 Food insecurity 03/31/2023 Overview: Per [facility] Protocol ILD (interstitial lung disease) 04/12/2021 [...] encounter Miscellaneous Notes * Telephone Encounter - Alicia Azevedo OSA [...] call to verified if fax was received: [phone] Patient is scheduled for surgery on Friday11.28.2023. Olamide would like office to verify if patientis cleared for surgery due to low sodium level. Please call Olamide back to advise or fax letter of clearance to [phone] documented in this encounter Plan of Treatment Upcoming Encounters Date Type Department Care Team (Latest Contact Info) Description 11/26/2023 3:40 PM EST Office Visit Cosmetic Surgery & Aesthetics [place] [address] [place] [address] Nikky Trinidad MD [address] [place] [place] [address] 12/10/2023 10:30 AM EDT Telemedicine Pharmacy, [facility] [address] [place] [address] [facility] [address] [place] [address] 12/11/2023 9:15 AM EDT Office Visit Orthopaedics [facility] [address] [place] [address] Vega Farah, DO [address] [place] [address] 12/24/2023 9:50 AM EDT Office Visit [address] [phone] Uma Mark [address] [address] 01/14/2024 10:55 AM EDT Hospital Encounter OR [facility], Operating Room [facility] [address] [place] [address] Natan Collins, DO [address] [place] [phone] 01/14/2024 10:55 AM EDT - 01/14/2024 11:20 AM EDT Surgery OR [facility], Operating Room [facility] [address] [place] [address] Natan Collins DO [address] [place] [address] INJECTION SACROILIAC JOINT 03/24/2024 8:30 AM EDT Office Visit Rheumatology [facility] [address] [place] [address] Lance Castanon CRNP [address] [employer] [place] [address] Scheduled Procedures Name Priority Associated Diagnoses Date/Ti [...] Documents on File Type Date Recorded Patient Business Broker Expl anation Power of Rubber Flap Tuber Machine Operator 08/28/2016 POWER OF A TTORNEY POWER OF SCREENING SPECIALIST [facility] Care Teams Wardrobe Specialty Worker Relationship Specialty Start Date End Date Uma Mark DO [address] [place] [address] PCP - General Family Medicine 12/20/22 documented as of this encounter
--- OUTSIDE RECORDS SUMMARY | 2023-11-28 23:07 | External Medical Summary | Summary of Care ---
Author Name Unknown Organization [facility] Address [address] [place] [address] Phone [phone] Care Team Providers Care Industrial Trainer Name Role Phone Uma Mark DO Primary Care Provider Reason for Visit * Reason Onset Date Comments Fax 11/26/2023 Letter Requests 11/26/2023 Encounter Details Date Type Department Care Team (Late st Contact Info) Description 11/26/2023 Telephone [facility] [address] [place] [address] Uma Mark DO [address] [place] [address] Fax; Letter Requests Allergies Active [...] 0.1 % Nasal Solution (Astelin) Administer 1 [place] into nostril in the morning and 1 [place] before bedtime. 30 mL 12 02/25/2023 Active [...] feet 05/30/2023 Food insecurity 03/31/2023 Overview: Per [facility] Protocol ILD (interstitial lung disease) 04/12/2021 [...] call to verified if fax was received: [phone] Patient is scheduled for surgery on Friday11.28.2023. Olamide would like office to verify if patientis cleared for surgery due to low sodium level. Please call Olamide back to advise or fax letter of clearance to [phone] documented in this encounter Plan of Treatment Upcoming Encounters Date Type Department Care Team (Latest Contact Info) Description 11/26/2023 3:40 PM EST Office Visit Cosmetic Surgery & Aesthetics [place] [address] [place] [address] Nikky Trinidad MD [address] [place] [address] 12/10/2023 10:30 AM EDT Telemedicine Pharmacy, [facility] [address] [employer] [place] [address] [facility] 132 [facility] [place] [address] 12/11/2023 9:15 AM EDT Office Visit Orthopaedics [facility] [address] [employer] [place] [address] Vega Fra[place], 132 [facility] [place] [address] 12/24/2023 9:50 AM EDT Office Visit [address] [phone] Uma Mark DO [address] [place] [address] 01/14/2024 10:55 AM EDT Hospital Encounter OR [facility], Operating Room [facility] [address] [place] [address] Natan Collins, DO [address] [place] [address] 01/14/2024 10:55 AM EDT - 01/14/2024 11:20 AM EDT Surgery OR [facility], Operating Room [facility] [address] [place] [address] Natan Collins, DO [address] [place] [phone] INJECTION SACROILIAC JOINT 03/24/2024 8:30 AM EDT Office Visit Rheumatology [place] [address] [employer] [place] [address] Lance Castanon CRNP [facility] [employer] [place] [address] Scheduled Procedures Name Priority Associated Diagnoses Date/Ti [...] Documents on File Type Date Recorded Patient Braid Maker Expl anation Power of Half Sole Fitter 08/28/2016 POWER OF A TTORNEY POWER OF MFT [facility] Care Teams Industrial Trainer Relationship Specialty Start Date End Date Uma Mark DO [address] [facility] [place] [address] PCP - General Family Medicine 12/20/22 documented as of this encounter
--- OUTSIDE RECORDS SUMMARY | 2023-11-28 23:07 | External Medical Summary | Summary of Care ---
Author Name Unknown Organization [facility] Address [address] [facility] [address] Phone [phone] Care Team Providers Care Flight Operations Specialist Name Role Phone Uma Mark DO Primary Care Provider Reason for Visit * Reason Onset Date Comments FYI 11/25/2023 Right shoulder Encounter Details Date Type Department Care Team (Late st Contact Info) Description 11/25/2023 Telephone Access Center, [place] [facility] [address] [facility] *DO NOT REMOVE THIS DEPARTMENT* [place] [address] Services, Scheduling [address] [place] [facility] [place] [address] FYI (Right shoulder) Allergies Active Allergy Reactions Criticality Noted Date Comments Diphenhydramine 06/12/2023 HALLUCINATIONS. Gabapentin 10/10/2022 Retained fluid Lisinopril Cough 08/09/2019 Pregabalin Other (Please comment) 02/14/2023 Hot all over " I felt like I was on fire inside and out" Morphine Sulfate 07/19/2010 Lowers her blood pressure documented as of this encounter (statuses as of 11/25/2023) Medications Medication Sig Dispensed Refills Start Date [...] 0.1 % Nasal Solution (Astelin) Administer 1 [place] into nostril in the morning and 1 [place] before bedtime. 30 mL 12 02/25/2023 Active [...] as of this encounter (statuses as of 11/25/2023) Active Problems Problem Noted Date Diagnosed Date [...] as of this encounter (statuses as of 11/25/2023) Resolved Problems Problem Noted Date Diagnosed Date [...] as of this encounter (statuses as of 11/25/2023) Immunizations Name Administration Dates Next Due COVID-19 [...] encounter Miscellaneous Notes * Telephone Encounter - Joselin Morales OSA [...] & Aesthetics [place] [address] [place] [address] Nikky Trinidad MD [address] [place] [place] [address] 12/10/2023 10:30 AM EDT Telemedicine Pharmacy, [address] [place] [address] [facility] [address] [place] [address] 12/11/2023 9:15 AM EDT Office Visit Orthopaedics [facility] [address] [place] [address] Vega Farah, DO [address] [place] [address] 12/24/2023 9:50 AM EDT Office Visit [place] [address] [place] [facility] [phone] Uma Mark, DO [address] [place] [facility] [address] 01/14/2024 10:55 AM EDT Hospital Encounter OR [facility], Operating Room [facility] [address] [place] [phone] Natan Collins, DO [address] [place] [phone] 01/14/2024 10:55 AM EDT - 01/14/2024 11:20 AM EDT Surgery OR [facility], Operating Room [facility] [address] [place] [phone] Natan Collins, DO [address] [place] [address] INJECTION SACROILIAC JOINT 03/24/2024 8:30 AM EDT Office Visit Rheumatology [address] [place] [address] Lance Castanon CRNP [address] [place] [address] [place] [address] Scheduled Procedures Name Priority Associated Diagnoses Date/Ti [...] Documents on File Type Date Recorded Patient Store Shopper Expl anation Power of Poker Room Manager 08/28/2016 POWER OF A TTORNEY POWER OF APPLIANCE MECHANIC [facility] Care Teams Flight Operations Specialist Relationship Specialty Start Date End Date Uma Mark DO [address] [place] [address] PCP - General Family Medicine 12/20/22 documented as of this encounter
[2023-11-29] MEDS: LEVOTHYROXINE SODIUM 88 MCG TABLET PO SCH (05:34)
[2023-11-29] MEDS: ATENOLOL 25 MG TABLET PO SCH (08:29)
[2023-11-29] MEDS: dexAMETHasone 4 MG TAB PO SCH (08:29)
[2023-11-29] MEDS: buPROPion XL 150 MG TABCR PO SCH (08:30)
[2023-11-29] MEDS: azaTHIOprine 50 MG TAB PO SCH (08:30)
[2023-11-29] MEDS: FERROUS SULFATE 325 MG TAB PO SCH (08:31)
[2023-11-29] MEDS: DULoxetine HCL 60 MG CAP PO SCH (08:31)
[2023-11-29] MEDS: FOLIC ACID 1 MG TAB PO SCH (08:31)
[2023-11-29] MEDS: NALTREXONE HCL 50 MG TAB PO SCH (08:32)
[2023-11-29] MEDS: MAGNESIUM OXIDE 400 MG TAB PO SCH (08:32)
[2023-11-29] MEDS: MULTIVITAMIN TAB PO SCH (08:32)
[2023-11-29] MEDS: valACYclovir HCL 500 MG TABLET PO SCH (08:33)
--- NOTE | 2023-11-29 09:26 | Orthopedic Progress Note ---
Date of Service November 29, 2023 Assessment & Plan (1) Status post revision of total replacement of left knee: Overall she is doing very well. She is not having much pain in the left knee. She will be seen by physical therapy today for ambulation and range of motion exercises. The nursing staff can change her dressing after physical therapy. She is on aspirin for DVT prophylaxis. She can be discharged home later today. She will follow-up orthopedics in 2 weeks. Bryon Granda was seen and examined at bedside this morning. Overall she is doing very well. She is not having much pain in the left knee. She has been up and ambulating to the bathroom. She has no complaints.. Review of Systems All systems reviewed & are unremarkable except as noted in HPI & below. Physical Exam On physical examination of the left knee, the dressing is clean and dry. Her leg is out full extension. She has active dorsiflexion plantarflexion of her left ankle.. Results & Data Results & Data Laboratory Results . Diagnostic Findings Postoperative x-rays of the left knee show the prosthesis to be in anatomic alignment without any evidence of fracture complication, or loosening.. PG Care Time/CCT Total # of Minutes Spent Total Time Spent with Patient: Total time spent is greater than 50% in coordination of care (as documented) at patient's floor/unit and/or counseling patient: Coding Level of Care Code 82852 Post Operative Follow-Up Diagnoses Status post revision of total replacement of left knee Z96.652
--- NOTE | 2023-11-29 09:28 | Discharge Summary ---
Date of Service November 29, 2023 Principal Diagnosis Same as "Discharge Diagnosis" noted below under Discharge Instructions. Discharge Exam On physical examination of the left knee, the dressing is clean and dry. Her leg is out full extension. She has active dorsiflexion plantarflexion of her left ankle.. Discharge Data Procedures Performed Operation Date: 11/28/23 12:00 Actual Procedures p Revision Left Total Knee Arthroplasty(Left) - Ramone Tanner DO Ordered Studies 11/28/23 05:00 US - OR guided needle placemen Routine Hospital Course (1) Status post revision of total replacement of left knee: On November 28, 2023 Kalee arrived at [facility] and underwent a left revision knee replacement without complication. She had a spinal anesthetic. Postoperatively she was started on aspirin for DVT prophylaxis and transferred to the general orthopedic floors. Her hospital course was uneventful. On postop day #1, her vital signs were stable and her pain was well-controlled. She was able to participate well with physical therapy doing ambulation and range of motion exercises. She was then discharged home. She will follow-up with orthopedics in 2 weeks. PG Care Time/CCT Total # of Minutes Spent Total Time Spent with Patient: Total time spent is greater than 50% in coordination of care (as documented) at patient's floor/unit and/or counseling patient: Discharge Plan Discharge Items Patient Disposition: Home - Self-Care Reason For Visit: Painful Left Total Knee Arthroplasty Discharge Diagnosis: Revision left knee replacement Activity: Per Instructions section Non-emergency contact: Surgeon Call non-emergency contact if: your wound has increased redness and your wound has increased drainage Follow-up/Referrals: Uma Mark DO [Primary Care Provider] - Diet: Regular Addtl Attending Provider Instructions: Activity and Therapy Recommendations: * If you are using [facility] then therapy will be provided at your home until they feel you have accomplished all of your goals. * If you are using [facility] then Physical Therapy will be provided until they feel you are ready to start Outpatient Physical Therapy. * If you are not using home therapy then Outpatient Physical Therapy should start about 3-5 days from your day of surgery. Therapy will last about 6-10 weeks * It is important not to put a pillow under your knee when you are relaxing or sleeping. It is just as important to make sure you are getting your knee perfectly straight as it is to regain your knee bend. * You were shown a series of exercises in the hospital. Do these exercises three times each day including the exercises you were shown in physical therapy. * Get up and walk several times each day. For the first four weeks, try not to stand or walk for more than one hour at a time. If you do stand or walk for more than one hour, you will not hurt anything, but your leg will likely swell. * As you feel comfortable, you may change from the walker or crutches to a cane and then to independent walking. Medications: * Narcotic You will likely be sent home from the hospital with a prescription for the narcotic pain medication that worked best throughout your stay. * Cefadroxil -take the antibiotic twice a day for 10 days to help with infection. * Aspirin Most patients will be required to take Aspirin 81mg twice a day for 6 weeks after surgery. This is obtained [id number] and a prescription is not necessary. * Other medications may be prescribed for specific circumstances. If you have any questions, please call the office at . * Resume previous home medications unless otherwise instructed TEDs/Elastic Stockings: The white elastic stockings help limit swelling and prevent blood clots from forming in your legs.~ The more you wear them, the more they work. Wear them for six weeks. Dressing Care: The dressing can be changed after physical therapy on postop day #1. Daily dry dressing changes for a few days, especially if the incision is still draining some. If the incision is not draining then you may leave the saul open to air. If there is a little bit of drainage or if the saul are getting stuck on your clothing then cover the incision with a dry dressing. The saul will be removed at your 2 week follow-up appointment. Showering: You may shower 5 days from the day of surgery as long as the incision is no longer draining. You may shower with the saul exposed. Let soapy water run over the saul and pat them dry. Do not scrub or soak the incision. Things To Watch For: * Drainage from the incision site that occurs more than one week after your surgery. * Increased redness at the incision site. * Fever above 102 degrees Fahrenheit. * Unusual chest pain or shortness of breath. * Call [facility] at with any of the above problems Follow-Up Visit: Follow-up with Dr. Tanner's PA (Ramone Sarmiento) 2-3 weeks after your day of surgery. He will remove your saul and answer any questions. If you have any additional questions or concerns, Dr Tanner is usually in the office at the same time and will be available An appointment was probably scheduled when you signed-up for surgery in the office. If you have any questions call Office Instructions: More detailed instructions as well as Frequently Asked Questions were provided in a folder by our office when you signed-up for surgery. Please review these instructions when you get home. If you have any further questions or concerns, please feel free to call the office at [phone] Pending Studies at Discharge: No Stand-Alone Forms: My [facility] Medications and DC Order Prescriptions: New cefadroxil 500 mg capsule 500 mg PO BID 10 Days Qty: 20 0RF Continued cyproheptadine 4 mg Tablet 8 mg PO HS calcium carbonate [Calcium 600] 600 mg calcium (1,500 mg) Tablet 600 mg PO BID ferrous sulfate 325 mg (65 mg iron) Tablet 325 mg PO Q2D buspirone 10 mg Tablet 20 mg PO TID docusate sodium 100 mg Capsule 100 mg PO [facility] omeprazole 20 mg Capsule,Delayed Release(Dr/Ec) 20 mg PO [facility] folic acid 1 mg Tablet 1 mg PO QAM magnesium 250 mg Tablet 250 mg PO QAM rosuvastatin [Crestor] 5 mg Tablet 5 mg PO HS bupropion HCl [Wellbutrin XL] 150 mg Tablet Extended Release 24 Hr 150 mg PO QAM cholecalciferol (vitamin D3) [Vitamin D3] 5,000 unit Tablet 5,000 unit PO QAM trazodone 100 mg tablet 150 mg PO HS losartan 50 mg Tablet 50 mg PO BID atenolol 25 mg Tablet 25 mg PO QAM pramipexole 0.5 mg Tablet 0.25 mg PO TID levothyroxine 88 mcg Tablet 88 mcg PO QAM Rx Instructions: before breakfast loratadine 10 mg Tablet 10 mg PO DAILY PRN (Reason: Nasal Congestion) duloxetine [Cymbalta] 20 mg Capsule,Delayed Release(Dr/Ec) 60 mg PO QAM tizanidine 2 mg tablet 2 - 4 mg PO HS PRN (Reason: Pain) ondansetron HCl 4 mg tablet 4 mg PO Q6 PRN (Reason: Nausea) meclizine 12.5 mg tablet 12.5 mg PO TID PRN (Reason: Dizziness) valacyclovir 500 mg tablet 500 mg PO QAM amino acid-multivit w/iron-min Tablet 1 tab PO HS duloxetine 30 mg Capsule, Delayed Rel Sprinkle 30 mg PO HS cyanocobalamin (vitamin B-12) 1,000 mcg Tablet 1,000 mcg PO DAILY amoxicillin-pot clavulanate 875-125 mg tablet 1 tab PO BID Qty: 14 0RF lidocaine 5 % adhesive patch,medicated 1 patch TOP DAILY PRN (Reason: pain) Qty: 15 0RF Rx Instructions: leave on most painful area for 12 hrs naltrexone 50 mg Tablet 50 mg PO QAM azathioprine 50 mg tablet 50 mg PO QAM oxycodone 5 mg tablet 5 mg PO Q6H PRN (Reason: pain) Qty: 30 0RF Changed aspirin 81 mg tablet,delayed release (DR/EC) 81 mg PO BID 42 Days Qty: 0 0RF Discharge Orders: Discharge Order (Routine); Ordered 11/29/23 Ordered By: Ramone Tanner Admission Data Admit Date/Time: 11/28/23 13:59 Attending Provider: Ramone Tanner Admit Provider: Ramone Tanner Primary Care Provider: Uma Mark
== END 2023-11-29 10:47 | disposition home or self-care (01) ==
LOC: ASU 10:42 → 3E 10:42

== ENCOUNTER 2024-02-25 13:21 | Inpatient (IN) ==
--- NOTE | 2024-02-25 13:54 | Emergency Department Note ---
Impression & Plan Fracture of proximal end of right tibia, Fall, Fracture of proximal end of left tibia, Laceration of left knee ED Provider Note NAME: KIRSTEN BANUELOS AGE: 73 SEX: F : 1950 ARRIVES VIA: Ambulance INFORMANT: [Patient][ems] ED PROVIDER(S): [Sd Leyva MD] CHIEF COMPLAINT: Fall HISTORY OF PRESENT ILLNESS: The patient is a 73-year-old female presents to the ER with complaints of bilateral knee pain. She states that she was walking down the hallway, somehow lost her footing and fell forward onto both knees. She heard some crunching and she is concerned for fracture. She has had bilateral knee replacements, the left has been replaced twice. Patient complains of pain primarily in the right knee but the left knee also hurts. There is a left anterior knee laceration present as well. The patient's tetanus is current. The patient denies any loss of consciousness. There has been no injury to the head, neck, chest, ribs or back. She has no numbness or tingling that is new or different in her lower extremities. He does not take any blood thinning agents. PMHx/PSHx/Social Hx: See Below PHYSICAL EXAM: GENERAL: Patient is in no acute distress. HEENT: No acute trauma, normocephalic atraumatic, mucous membranes moist, no nasal congestion. NECK: No stridor, no adenopathy, no meningismus, trachea is midline. LUNGS: Clear to auscultation bilaterally, no wheeze, no rhonchi, breath sounds equal. HEART: Without murmurs gallops or rubs, regular rate and rhythm. ABDOMEN: Soft, nontender, no peritonitis. EXTREMITIES: No cyanosis. The patient has swelling and soreness about both knees with palpation. She has pain with any movement of her knees. There is an abrasion to the right anterior inferior knee. There is a 5 cm gaping laceration to the left anterior inferior knee in the area of the patellar tendon. I do believe I see the patellar tendon. There is oozing of dark red material which appears potentially a mix of joint fluid and blood. There is a 2 cm smaller, less involved laceration just superior to the 5 cm laceration described. NEUROLOGIC: Oriented x 3, no acute motor or sensory deficits, no focal weakness. SKIN: No jaundice, no diaphoresis. DIFFERENTIAL DIAGNOSIS: Fracture, contusion, hemarthrosis, patellar tendon or quadriceps tendon injury, among others. EMERGENCY DEPARTMENT PROCEDURES: Laceration washout: This procedure was performed by me. Using lidocaine the skin was anesthetized. Sterile technique was employed. Saline was used to washout the left knee wound. A heavy bulky dressing was then applied. No complication with the procedure. MEDICAL DECISION MAKING: There is no leukocytosis. A mild anemia was seen with a hemoglobin of 11.3. There was a normal platelet count. Sodium was somewhat low at 131, this is a chronic finding for the patient. There was no renal failure. Films of both knees were performed. There were fractures to both tibias. The patient received IV Dilaudid for pain. She was given IV Unasyn as I was concerned for an open fracture to the left knee. She received IV Tylenol for pain, IV Zofran for nausea. The patient's right knee was placed in a knee immobilizer. I did washout the left knee wound. A dressing was then applied. I was concerned for an open injury to this left knee. I did speak with orthopedics, Dr. Tanner. He asked that we wash out the left knee wound again and then close the skin. He will see the patient here in the hospital and decide if she needs a true OR washout. At this point, patient will be hospitalized under the medicine service. I did speak with the patient and case management. Orthopedics will be heavily involved in this case as both knees have been injured from her fall. Of note, my PA did do a second, more extensive washout of the left knee wound and did close the skin as advised by Dr. Tanner. Please see her documentation. Prior/Outside records/notes reviewed: Today's EMS notes describing her presentation and transport to this hospital. Imaging/x-ray results per my interpretation: Right knee film shows a proximal tibial fracture at the inferior margin of the prosthesis. Left knee film shows a avulsion like fracture to the anterior aspect of the proximal tibia. Chronic Medical/Social conditions affecting care: Advanced age. History of previous bilateral knee replacement. Care/Management discussed with: Orthopedics-Dr. Tanner. Case management and the on-call hospitalist. 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 Encounter for pre-operative examination Hallucinations, visual (Acute) Acute confusion (Acute) AMS (altered mental status) Fall Polypharmacy (Acute) Status post left knee replacement (~09/2022) Arthritis Myopathy (Acute) Osteoarthritis (Chronic) Chronic pain Hyponatremia (Acute) Hx RLS (restless legs syndrome) Closed fracture of right distal femur 2019 no surgery Anemia (Chronic) HTN (hypertension) (Chronic) controlled, stable per pt Dyslipidemia (Chronic) Hypothyroidism (Chronic) Depression (Chronic) Anxiety (Chronic) Gastroparesis (Chronic) GERD (gastroesophageal reflux disease) (Chronic) controlled symptoms per pt Polymyositis (Chronic) MTX Medical History Seasonal allergies Chronic rhinitis Hiatal hernia h/o of repair in past, and has at present too Neuropathy feet Refusal of blood product d/t congregational beliefs Elevated hemidiaphragm right Dysphagia worse with meat, happens on occasion Interstitial lung disease Follows with Dr. Eid/[facility] Hx of migraines History of COVID-19 08/2020, loss taste/smell, body aches, sinus issues > resolved (after sinus surgery) none since History of carotid artery disease mild bilateral intracranial ICA stenoses-head MRA 02/2022 Diverticulitis Hx, 2018 Surgical History Hx of cataract extraction Hx of right cataract extraction will see Dr Huff 08/28/23 for F/U H/O hemorrhoidectomy History of tubal ligation Nausea and vomiting after administration of anesthetic agent Years ago, denies needing scop patch History of esophagogastroduodenoscopy (EGD) Hx of colonoscopy Hx of squamous cell carcinoma excision Excision (head) History of back surgery lumbar Family History Other No significant family history Social History Smoking Status: Never smoker Second Hand Exposure: Yes (in past); Do You Dip or Chew Tobacco: No; Hx Alcohol Use: No Hx Substance Use: No Preferred Language: Samoan Communication Ability: Effective 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 Beliefs That Will Affect Care: Rastafarian Rastafarian Beliefs: no blood products > Jehoviahs wittness Current Living Situation: Alone Current Living Situation Comment: Lives in a mother in law suite Feels Safe at Home: Yes Assistive Devices: Walker Allergies Allergies Allergy/AdvReac Type Severity Reaction Status Date / Time diphenhydramine Allergy Intermediate Hallucinati Verified 11/28/23 11:05 [From Benadryl] ng morphine AdvReac Severe Low BP Verified 11/28/23 11:05 gabapentin AdvReac Intermediate swelling Verified 11/28/23 11:05 of lower legs lisinopril AdvReac Intermediate Cough Verified 11/28/23 11:05 pregabalin [From Lyrica] AdvReac Intermediate sweating/ho Verified 11/28/23 11:05 t Home Meds Home Medications Medication Instructions Recorded Confirmed bupropion HCl 150 mg 24 hr tablet, 150 mg PO QAM 07/11/19 11/28/23 extended release (Wellbutrin XL) buspirone 10 mg tablet 20 mg PO TID 07/11/19 11/28/23 calcium carbonate (Calcium 600) 600 mg PO BID 07/11/19 11/28/23 cholecalciferol (vitamin D3) 125 5,000 unit PO QAM 07/11/19 11/28/23 mcg (5,000 unit) tablet (Vitamin D3) cyproheptadine 4 mg tablet 8 mg PO HS 07/11/19 11/28/23 docusate sodium 100 mg capsule 100 mg PO AMHS 07/11/19 11/28/23 ferrous sulfate 325 mg (65 mg 325 mg PO Q2D 07/11/19 11/28/23 iron) tablet folic acid 1 mg tablet 1 mg PO QAM 07/11/19 11/28/23 magnesium 250 mg tablet 250 mg PO QAM 07/11/19 11/28/23 omeprazole 20 mg capsule,delayed 20 mg PO AMHS 07/11/19 11/28/23 release rosuvastatin 5 mg tablet (Crestor) 5 mg PO HS 07/11/19 11/28/23 trazodone 100 mg tablet 150 mg PO HS 06/16/21 11/28/23 atenolol 25 mg tablet 25 mg PO QAM 08/19/22 11/28/23 levothyroxine 88 mcg tablet 88 mcg PO QAM 08/19/22 11/28/23 losartan 50 mg tablet 50 mg PO BID 08/19/22 11/28/23 pramipexole 0.5 mg tablet 0.25 mg PO TID 08/19/22 11/28/23 duloxetine 20 mg capsule,delayed 60 mg PO QAM 08/22/22 11/28/23 release (Cymbalta) loratadine 10 mg tablet 10 mg PO DAILY PRN Nasal Congestion 08/22/22 11/28/23 amino acids-multivit with iron and 1 tab PO HS 01/22/23 11/28/23 minerals tablet meclizine 12.5 mg tablet 12.5 mg PO TID PRN Dizziness 01/22/23 11/28/23 ondansetron HCl 4 mg tablet 4 mg PO Q6 PRN Nausea 01/22/23 11/28/23 tizanidine 2 mg tablet 2 - 4 mg PO HS PRN Pain 01/22/23 11/28/23 valacyclovir 500 mg tablet 500 mg PO QAM 01/22/23 11/28/23 cyanocobalamin (vitamin B-12) 1,000 mcg PO DAILY 08/11/23 11/28/23 1,000 mcg tablet duloxetine 30 mg capsule,delayed 30 mg PO HS 08/11/23 11/28/23 release sprinkle azathioprine 50 mg tablet 50 mg PO QAM 11/25/23 11/28/23 naltrexone 50 mg tablet 50 mg PO QAM 11/25/23 11/28/23 Previous Rx's Medication Instructions Recorded amoxicillin 875 mg-potassium 1 tab PO BID #14 tabs 08/31/23 clavulanate 125 mg tablet lidocaine 5 % topical patch 1 patch topical DAILY PRN pain #15 10/26/23 ea aspirin 81 mg tablet,delayed 81 mg PO BID 42 days #0 tabs 11/29/23 release oxycodone 5 mg tablet 5 mg PO Q6H PRN pain #30 tabs 11/29/23 hydromorphone 2 mg tablet 2 mg PO Q6H PRN pain #30 tabs 12/01/23 (Dilaudid) tramadol 50 mg tablet 50 mg PO Q6H PRN pain #30 tabs 12/16/23 tramadol 50 mg tablet 50 mg PO Q6H PRN pain #30 tabs 12/31/23 oxycodone 5 mg tablet 5 mg PO Q6H PRN pain #30 tabs 01/21/24 Results & Data (ED) Vital Signs Vital Signs - 24 hr 02/25/24 13:18 02/25/24 13:42 02/25/24 16:00 Temperature 36.6 C Temperature Source Oral Pulse Rate 67 71 Pulse Rate [Left Apical] 60 Respiratory Rate 16 18 Respiratory Effort / Characteristics Non-Labored Spontaneous Non-Labored Spontaneous Respiratory Depth Normal Normal Respiratory Pattern Regular Blood Pressure 138/82 Blood Pressure [Right Arm] 112/63 Blood Pressure Mean 100 Blood Pressure Mean [Right Arm] 79 Blood Pressure Position [Right Arm] Lying Pulse Oximetry 98 100 Oxygen Delivery Method Room Air Room Air Sepsis Recent Fever Within 48 Hours No Sepsis New/Unexplained Change in Mental Status N/A Sepsis Action Taken by Nursing No Action Required 02/25/24 16:41 Temperature Temperature Source Pulse Rate Pulse Rate [Left Apical] 63 Respiratory Rate 18 Respiratory Effort / Characteristics Non-Labored Spontaneous Respiratory Depth Normal Respiratory Pattern Blood Pressure Blood Pressure [Right Arm] 93/45 L Blood Pressure Mean Blood Pressure Mean [Right Arm] 61 Blood Pressure Position [Right Arm] Pulse Oximetry 93 Oxygen Delivery Method Room Air Sepsis Recent Fever Within 48 Hours Sepsis New/Unexplained Change in Mental Status Sepsis Action Taken by Usp Medications Current Medication List: was personally reviewed by me Laboratory Data Attestation: I reviewed the patient's lab results. 02/25/24 13:58 02/25/24 13:58 Lab Results 02/25/24 Range/Units 13:58 WBC 6.97 (4.8-10.8) K/ul RBC 3.17 L (4.20-5.40) M/uL Hgb 11.3 L (12.0-16.0) g/dl Hct 33.7 L (37.0-47.0) % MCV 106.3 H (80.0-100.0) fL MCH 35.6 H (25.0-34.0) pg MCHC 33.5 (32.0-36.0) g/dL RDW Std Deviation 51.2 H (36.4-46.3) fL RDW Coeff of Alo 13.2 (11.5-14.5) % Plt Count 223 (130-400) K/uL MPV 8.6 L (9.4-12.4) fL Sodium 131 L (136-145) mmol/L Potassium 4.2 (3.5-5.1) mmol/L Chloride 104 (98-107) mmol/L Carbon Dioxide 22 (21-32) mmol/L Anion Gap 5 (3-11) BUN 22 (6-23) mg/dl Creatinine 0.70 (0.6-1.2) mg/dl Est Cr Clr Drug Dosing 65.6 ml/min Est GFR ( Amer) 100.3 ml/min Est GFR (Non-Af Amer) 86.6 ml/min BUN/Creatinine Ratio 31.4 H (10-20) Glucose 94 (70-99(Fasting)) mg/dl Calcium 9.5 (8.6-10.3) mg/dl Administered Medications Hydromorphone HCl (Hydromorphone Inj 0.5 Mg/0.5 Ml Syr) 0.25 mg IV Q15M PRN PRN Reason: Pain Stop: 03/10/24 13:44 Last Admin: 02/25/24 16:04 Dose: 0.25 mg Documented By: Admin: 02/25/24 15:35 Dose: 0.25 mg Documented By: KATYA Discontinued Medications Hydromorphone HCl (Hydromorphone Inj 0.5 Mg/0.5 Ml Syr) 0.5 mg IV NOW STA Stop: 02/25/24 13:46 Last Admin: 02/25/24 14:10 Dose: 0.5 mg Documented By: ELISHA Acetaminophen (Ofirmev) 1,000 mg in 100 mls @ 400 mls/hr IV NOW STA Stop: 02/25/24 14:02 Last Infusion: 02/25/24 14:31 Dose: Infused Documented By: Admin: 02/25/24 14:11 Dose: 400 mls/hr Documented By: ELISHA Ampicillin Sodium/Sulbactam Sodium 3,000 mg/ Sodium Chloride 100 mls @ 200 mls/hr IV NOW STA Stop: 02/25/24 14:17 Last Infusion: 02/25/24 15:35 Dose: Infused Documented By: Admin: 02/25/24 15:02 Dose: 200 mls/hr Documented By: AUTUMN Lidocaine HCl (Lidocaine 1% Local 20 Ml Vial) 20 ml INFIL NOW ONE Stop: 02/25/24 13:46 Last Admin: 02/25/24 14:10 Dose: 20 ml Documented By: ELISHA Ondansetron HCl (Ondansetron Inj 2 Mg/Ml 2 Ml Vial) 4 mg IV NOW STA Stop: 02/25/24 13:46 Last Admin: 02/25/24 14:10 Dose: 4 mg Documented By: ELISHA Imaging Data Radiologist's Impression: Knee X-Ray 02/25/24 13:45 LEFT KNEE 3 VIEWS CLINICAL HISTORY: Fall. FINDINGS: AP, crosstable lateral, and sunrise views of the left knee are compared to study dated 11/28/2023. The skeletal structures are osteopenic. There is a displaced avulsion fracture seen along the anterior aspect of the tibial tuberosity. This is only seen on the lateral projection. No additional fracture is identified. A left knee arthroplasty is in near anatomic alignment. No periprosthetic lucency is identified. There has been undersurface remodeling of the patella. There is a small joint effusion. The overlying soft tissues are normal as imaged. A calcified fabella is incidentally noted. IMPRESSION: 1. Displaced avulsion fracture along the anterior aspect of the tibial tuberosity. 2. No additional fracture is seen. 3. A left knee arthroplasty is in near anatomic alignment. Electronically signed by: Sd Sutherland M.D. 02/25/2024 3:12 PM Knee X-Ray 02/25/24 13:45 XR knee RT 3V CLINICAL HISTORY: fall. Bilateral knee pain. COMPARISON STUDY: Right hip CT 10/26/2023. FINDINGS: There is a right total knee arthroplasty. Nondisplaced periprosthetic fracture within the proximal metaphysis of the right tibia. This may extend into the lateral tibial plateau. The distal femur and patella are intact. There is proximal tibial soft tissue swelling. There is a moderate knee effusion. IMPRESSION: 1. Nondisplaced acute periprosthetic fracture within the proximal metaphysis of the right tibia which may extend into the lateral tibial plateau. 2. Moderate knee effusion. ACT 112: Negative or not required by law. Electronically signed by: Cheng Hoover M.D. 02/25/2024 3:36 PM Discharge Plan Visit Data Chief Complaint: Fall Stated Complaint: FALL ED Provider: Sd Leyva Discharge Problem: Fracture of proximal end of right tibia, Fall, Fracture of proximal end of left tibia, Laceration of left knee Patient Disposition: Admitted As Inpatient Condition: Fair Forms Stand Alone Forms: [facility] Prescriptions Prescriptions: No Action hydromorphone [Dilaudid] 2 mg tablet 2 mg PO Q6H PRN (Reason: pain) Qty: 30 0RF tramadol 50 mg tablet 50 mg PO Q6H PRN (Reason: pain) Qty: 30 0RF oxycodone 5 mg tablet 5 mg PO Q6H PRN (Reason: pain) Qty: 30 0RF tramadol 50 mg tablet 50 mg PO Q6H PRN (Reason: pain) Qty: 30 0RF cyproheptadine 4 mg Tablet 8 mg PO HS calcium carbonate [Calcium 600] 600 mg calcium (1,500 mg) Tablet 600 mg PO BID ferrous sulfate 325 mg (65 mg iron) Tablet 325 mg PO Q2D buspirone 10 mg Tablet 20 mg PO TID docusate sodium 100 mg Capsule 100 mg PO AMHS omeprazole 20 mg Capsule,Delayed Release(Dr/Ec) 20 mg PO AMHS folic acid 1 mg Tablet 1 mg PO QAM magnesium 250 mg Tablet 250 mg PO QAM rosuvastatin [Crestor] 5 mg Tablet 5 mg PO HS bupropion HCl [Wellbutrin XL] 150 mg Tablet Extended Release 24 Hr 150 mg PO QAM cholecalciferol (vitamin D3) [Vitamin D3] 5,000 unit Tablet 5,000 unit PO QAM trazodone 100 mg tablet 150 mg PO HS losartan 50 mg Tablet 50 mg PO BID atenolol 25 mg Tablet 25 mg PO QAM pramipexole 0.5 mg Tablet 0.25 mg PO TID levothyroxine 88 mcg Tablet 88 mcg PO QAM Rx Instructions: before breakfast loratadine 10 mg Tablet 10 mg PO DAILY PRN (Reason: Nasal Congestion) duloxetine [Cymbalta] 20 mg Capsule,Delayed Release(Dr/Ec) 60 mg PO QAM tizanidine 2 mg tablet 2 - 4 mg PO HS PRN (Reason: Pain) ondansetron HCl 4 mg tablet 4 mg PO Q6 PRN (Reason: Nausea) meclizine 12.5 mg tablet 12.5 mg PO TID PRN (Reason: Dizziness) valacyclovir 500 mg tablet 500 mg PO QAM amino acid-multivit w/iron-min Tablet 1 tab PO HS duloxetine 30 mg Capsule, Delayed Rel Sprinkle 30 mg PO HS cyanocobalamin (vitamin B-12) 1,000 mcg Tablet 1,000 mcg PO DAILY amoxicillin-pot clavulanate 875-125 mg tablet 1 tab PO BID Qty: 14 0RF lidocaine 5 % adhesive patch,medicated 1 patch TOP DAILY PRN (Reason: pain) Qty: 15 0RF Rx Instructions: leave on most painful area for 12 hrs naltrexone 50 mg Tablet 50 mg PO QAM azathioprine 50 mg tablet 50 mg PO QAM aspirin 81 mg tablet,delayed release (DR/EC) 81 mg PO BID 42 Days Qty: 0 0RF oxycodone 5 mg tablet 5 mg PO Q6H PRN (Reason: pain) Qty: 30 0RF Referrals Referrals: Uma Mark DO [Primary Care Provider] - Discharge Problem: Fracture of proximal end of right tibia Qualifiers: Encounter type: initial encounter Fracture type: closed Fracture morphology: u nspecified fracture morphology Qualified Code(s): S82.101A - Unspecified fracture of upper end of right tibia, initial encounter for closed fracture Fall Qualifiers: Encounter type: initial encounter Qualified Code(s): W19.XXXA - Unspecified fall, initial encounter Fracture of proximal end of left tibia Qualifiers: Encounter type: initial encounter Fracture type: open Fracture morphology: u nspecified fracture morphology Laceration of left knee Qualifiers: Encounter type: initial encounter Qualified Code(s): S81.012A - Laceration without foreign body, left knee, initial encounter
[2024-02-25] MEDS: HYDROmorphone INJ 0.5 MG/0.5 ML SYR IV STA (14:10)
[2024-02-25] MEDS: LIDOCAINE 1% LOCAL 20 ML VIAL INFIL ONE (14:10)
[2024-02-25] MEDS: ONDANSETRON INJ 2 MG/ML 2 ML VIAL IV STA (14:10)
[2024-02-25] MEDS: ACETAMINOPHEN 1,000 MG/100 ML VIAL IV STA (14:11)
[2024-02-25 14:15] LABS: Hematocrit (blood only) 33.7 % (37.0-47.0); Hemoglobin 11.3 g/dl (12.0-16.0); Mean Corpuscular Hemoglobin 35.6 pg (25.0-34.0); Mean Corpuscular Hgb Conc 33.5 g/dL (32.0-36.0); Mean Corpuscular Volume 106.3 fL (80.0-100.0); Mean Platelet Volume 8.6 fL (9.4-12.4); Platelet Count 223 K/uL (130-400); RDW Coefficient of Variation 13.2 % (11.5-14.5); RDW Standard Deviation 51.2 fL (36.4-46.3); Red Blood Count 3.17 M/uL (4.20-5.40); White Blood Count 6.97 K/ul (4.8-10.8)
[2024-02-25 14:34] LABS: BUN Creatinine Ratio 31.4 (10-20); Calcium 9.5 mg/dl (8.6-10.3); Creatinine Clr Calc Pharmacy 65.6 ml/min; Est GFR (African American) 100.3 ml/min; Est GFR (Non-African American) 86.6 ml/min; Potassium 4.2 mmol/L (3.5-5.1)
[2024-02-25] MEDS: AMPICILLIN/SULBACTAM SOD 3,000 MG in SODIUM CHLOR 0.9% MINI-B 100 ML IV STA (15:02)
--- NOTE | 2024-02-25 15:14 | XRay Report ---
LEFT KNEE 3 VIEWS CLINICAL HISTORY: Fall. FINDINGS: AP, crosstable lateral, and sunrise views of the left knee are compared to study dated 2023. The skeletal structures are osteopenic. There is a displaced avulsion fracture seen along the a nterior aspect of the tibial tuberosity. This is only seen on the lateral projection. No additional f racture is identified. A left knee arthroplasty is in near anatomic alignment. No periprosthetic luce ncy is identified. There has been undersurface remodeling of the patella. There is a small joint effu ranjit. The overlying soft tissues are normal as imaged. A calcified fabella is incidentally noted. IMPRESSION: 1. Displaced avulsion fracture along the anterior aspect of the tibial tuberosity. 2. No additional fracture is seen. 3. A left knee arthroplasty is in near anatomic alignment. Electronically signed by: Sd Sutherland M.D. 02/25/2024 3:12 PM
[2024-02-25] MEDS: HYDROmorphone INJ 0.5 MG/0.5 ML SYR IV PRN ×2 (15:35→18:34)
--- NOTE | 2024-02-25 15:38 | XRay Report ---
XR knee RT 3V CLINICAL HISTORY: fall. Bilateral knee pain. COMPARISON STUDY: Right hip CT 10/26/2023. FINDINGS: There is a right total knee arthroplasty. Nondisplaced periprosthetic fracture within the p roximal metaphysis of the right tibia. This may extend into the lateral tibial plateau. The distal fe mur and patella are intact. There is proximal tibial soft tissue swelling. There is a moderate knee e ffusion. IMPRESSION: 1. Nondisplaced acute periprosthetic fracture within the proximal metaphysis of the right tibia which may extend into the lateral tibial plateau. 2. Moderate knee effusion. ACT 112: Negative or not required by law. Electronically signed by: Cheng Hoover M.D. 02/25/2024 3:36 PM
[2024-02-25] MEDS ORDERED: ALUMINUM/MAGNESIUM SUSP 30 ML UDC PO PRN (16:25)
[2024-02-25] MEDS ORDERED: MAGNESIUM HYDROXIDE SUSP 30 ML UDC PO PRN (16:25)
[2024-02-25] MEDS ORDERED: ACETAMINOPHEN 325 MG TAB PO PRN (16:25)
--- NOTE | 2024-02-25 16:29 | History & Physical Report ---
Date of Service February 25, 2024 Assessment & Plan (1) Avulsion fracture of lateral condyle of left tibia: (2) Right tibial fracture: (3) Fall: (4) HTN (hypertension): (5) Dyslipidemia: (6) Depression: (7) GERD (gastroesophageal reflux disease): Plan Ms. Christian is a 73 year old female that presents to the ED after experiencing a mechanical fall this afternoon around 1230. She was walking out of her apartment when both of her knees started making 'snapping' noises and buckled at the same time leading to her falling on both knees. Has had multiple knee replacement in the past; most recently in November on the left knee under the care of Dr. Tanner. She had her phone and was able to call her neighbors who called 911. She denies hitting her head of having LOC. She denies taking any anticoagulation medication. Leading up to today patient denies any overt illness or recent travel. R Knee Xray: Nondisplaced acute periprosthetic fracture within the proximal metaphysis of the right tibia which may extend into the lateral tibial plateau. L Knee X-ray: Displaced avulsion fracture along the anterior aspect of the tibial tuberosity. Patient reports that she is a Uatsdin and is not open to any blood transfusions which is noted below. She is open to alternate medications for infusion including vitamin D B12 and folic acid which she takes as an outpatient and iron.ED spoke with Dr. Tanner with orthopedics directly indicating open injury of the tibia with potentially a shard of her joint replacement that has cut through her thin skin due to history of knee replacements and scar tissue that has developed. The wound was washed twice in the ED and closed via sutures. I spoke with Dr. Gerardo who indicated to hold ASA for now and he will determine plan and discuss with Hospitalist and pt. Patient will be admitted for further evaluation and management of bilateral tibia fractures with left avulsion fracture of the anterior tibia. We will keep her n.p.o. after midnight, continue IV antibiotics; ampicillin, scheduled Tylenol and Dilaudid as needed for pain control. Right knee immobilizer placed and will continue home medications along with stool softeners. Will hold aspirin in a.m. pending Ortho consult. Will hold any VTE Prophylaxis at this time given both knees with abrasions and bleeding risk with LMWH; await Ortho consult. Avulsion fracture left condyle left tibia: Right tibial fracture: Status post mechanical fall: Acute R Knee Xray: Nondisplaced acute periprosthetic fracture within the proximal metaphysis of the right tibia which may extend into the lateral tibial plateau. L Knee X-ray: Displaced avulsion fracture along the anterior aspect of the tibial tuberosity. No leukocytosis Left knee washout and closed with total of 15 sutures Orthopedics consult placed Will keep n.p.o. after midnight Ampicillin given in ED; will continue for now and adjust based on Ortho recommendation or any culture abnormalities Scheduled Tylenol and Dilaudid as needed for pain control Continue Colace for stool softener Will hold any VTE Prophylaxis at this time given both knees with abrasions and bleeding risk with LMWH; await Ortho consult. CAD: Chronic Status post mild bilateral intracranial ICA stenosis Takes baby aspirin; hold for now pending Ortho consult HTN: Chronic Takes losartan and atenolol; continue Dyslipidemia: Chronic Takes rosuvastatin; continue Depression: Chronic Takes Cymbalta, Wellbutrin, and BuSpar; continue Takes Trazadone at bedtime; continue ILD: Chronic Follows with pulmonary; Dr. Stanton TERRELL Takes azathioprine; continue Goals of care: Uatsdin: Prefers to avoid blood transfusions Open to B12, folate, iron Takes vitamin B12 and folic acid; continue GERD: Chronic Takes omeprazole; continue Disposition: PCP: Dr. Mark CODE STATUS: DNR/DNI VTE prophylaxis: pending Ortho consult due to both knees with abrasions and bleeding risk with LMWH I spent a total of 87 minutes coordinating, documenting, and providing care for this patient excluding time spent in the performance of separately billed services. All of the aforementioned completed while collaborating with the assigned attending physician for a full treatment plan. Please see their addendum for further details. History of Present Illness Chief Complaint: R periprosthetic tibia fracture and L avulsion fracture Primary Care Provider: Uma Mark DO Ms. Gabriel is a 73 year old female that presents to the ED after experiencing a mechanical fall this afternoon around 1230. She was walking out of her apartment when both of her knees started making 'snapping' noises and buckled at the same time leading to her falling on both knees. She had her phone and was able to call her neighbors who called 911. She denies hitting her head of having LOC. She denies taking any anticoagulation medication. Leading up to today patient denies any overt illness or recent travel. In the ED left and right knee x-rays performed with the following results: R Knee Xray: Nondisplaced acute periprosthetic fracture within the proximal metaphysis of the right tibia which may extend into the lateral tibial plateau. L Knee X-ray: Displaced avulsion fracture along the anterior aspect of the tibial tuberosity. In the ED, no leukocytosis, otherwise labs unremarkable slight hyponatremia; 131. Additional past medical history includes ILD, HTN, HLD, depression and anxiety, hypothyroidism and left total knee replacement x2; most recent in November 2023. Patient denies tobacco use, alcohol use, recreational drug use. Patient reports that she is a Uatsdin and is not open to any blood transfusions which is noted below. She is open to alternate medications for infusion including vitamin D B12 and folic acid which she takes as an outpatient and iron. ED spoke with Dr. Tanner with orthopedics directly indicating open injury of the tibia with potentially a shard of her joint replacement that has cut through her thin skin due to history of knee replacements and scar tissue that has developed. The wound was washed twice in the ED and closed via sutures. Patient denies fever, chills, headache, dizziness, visual or auditory changes, chest pain, palpitations, nausea, vomiting, diarrhea, abdominal pain or tenderness, other recent falls or trauma. Patient will be admitted for further evaluation and management of bilateral tibia fractures with left avulsion fracture of the anterior tibia. We will keep her n.p.o. after midnight, continue IV antibiotics; ampicillin, scheduled Tylenol and Dilaudid as needed for pain control. Right knee immobilizer placed and will continue home medications along with stool softeners. Will hold aspirin in a.m. pending Ortho consult. Allergies Allergy/AdvReac Type Severity Reaction Status Date / Time diphenhydramine Allergy Intermediate Hallucinati Verified 02/25/24 17:04 [From Benadryl] ng morphine AdvReac Severe Low BP Verified 02/25/24 17:04 gabapentin AdvReac Intermediate swelling Verified 02/25/24 17:04 of lower legs lisinopril AdvReac Intermediate Cough Verified 02/25/24 17:04 pregabalin [From Lyrica] AdvReac Intermediate sweating/ho Verified 02/25/24 17:04 t Home Medications Medication Instructions Recorded Confirmed Type bupropion HCl 150 mg 24 hr tablet, 150 mg PO QAM 07/11/19 02/25/24 History extended release (Wellbutrin XL) buspirone 10 mg tablet 10 mg PO TID 07/11/19 02/25/24 History calcium carbonate (Calcium 600) 600 mg PO BID 07/11/19 02/25/24 History cholecalciferol (vitamin D3) 125 5,000 unit PO QAM 07/11/19 02/25/24 History mcg (5,000 unit) tablet (Vitamin D3) cyproheptadine 4 mg tablet 8 mg PO HS 07/11/19 02/25/24 History docusate sodium 100 mg capsule 100 mg PO AMHS 07/11/19 02/25/24 History ferrous sulfate 325 mg (65 mg 325 mg PO Q2D 07/11/19 02/25/24 History iron) tablet folic acid 1 mg tablet 1 mg PO QAM 07/11/19 02/25/24 History magnesium 250 mg tablet 250 mg PO QAM 07/11/19 02/25/24 History omeprazole 20 mg capsule,delayed 20 mg PO AMHS 07/11/19 02/25/24 History release rosuvastatin 5 mg tablet (Crestor) 5 mg PO HS 07/11/19 02/25/24 History trazodone 100 mg tablet 150 mg PO HS 06/16/21 02/25/24 History atenolol 25 mg tablet 25 mg PO QAM 08/19/22 02/25/24 History levothyroxine 88 mcg tablet 88 mcg PO DAILYBB 08/19/22 02/25/24 History losartan 50 mg tablet 50 mg PO BID 08/19/22 02/25/24 History loratadine 10 mg tablet 10 mg PO DAILY PRN Nasal Congestion 08/22/22 02/25/24 History amino acids-multivit with iron and 1 tab PO HS 01/22/23 02/25/24 History minerals tablet meclizine 12.5 mg tablet 12.5 mg PO TID PRN Dizziness 01/22/23 02/25/24 History ondansetron HCl 4 mg tablet 4 mg PO Q6 PRN Nausea 01/22/23 02/25/24 History tizanidine 2 mg tablet 2 - 4 mg PO HS PRN Pain 01/22/23 02/25/24 History valacyclovir 500 mg tablet 500 mg PO QAM 01/22/23 02/25/24 History azathioprine 50 mg tablet 50 mg PO QAM 11/25/23 02/25/24 History aspirin 81 mg tablet,delayed 81 mg PO BID 42 days #0 tabs 11/29/23 02/25/24 Rx release azelastine 137 mcg (0.1 %) nasal 1 spray intranasal BID 02/25/24 02/25/24 History spray aerosol cyanocobalamin (vitamin B-12) 5,000 mcg sublingual DAILY 02/25/24 02/25/24 History 5,000 mcg sublingual tablet (Vitamin B-12) pramipexole 0.25 mg tablet 0.25 mg PO TID 02/25/24 02/25/24 History vit C 50 mg-E 15 unit-zinc cit 4.5 1 tab PO DAILY 02/25/24 02/25/24 History mg-lutein 2.5 mg-zeaxan chew tablet ([facility]) vitamin B complex 1 tab PO DAILY 02/25/24 02/25/24 History Past Med/Surg History Problem List Laceration of left knee (Acute) Fracture of proximal end of left tibia (Acute) Fall (Acute) Fracture of proximal end of right tibia (Acute) Right tibial fracture Avulsion fracture of lateral condyle of left tibia 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 Encounter for pre-operative examination Hallucinations, visual (Acute) Acute confusion (Acute) AMS (altered mental status) Fall Polypharmacy (Acute) Status post left knee replacement (~09/2022) Arthritis Myopathy (Acute) Osteoarthritis (Chronic) Chronic pain Hyponatremia (Acute) Hx RLS (restless legs syndrome) Closed fracture of right distal femur 2019 no surgery Anemia (Chronic) HTN (hypertension) (Chronic) controlled, stable per pt Dyslipidemia (Chronic) Hypothyroidism (Chronic) Depression (Chronic) Anxiety (Chronic) Gastroparesis (Chronic) GERD (gastroesophageal reflux disease) (Chronic) controlled symptoms per pt Polymyositis (Chronic) MTX Medical History Seasonal allergies Chronic rhinitis Hiatal hernia h/o of repair in past, and has at present too Neuropathy feet Refusal of blood product d/t confucianist beliefs Elevated hemidiaphragm right Dysphagia worse with meat, happens on occasion Interstitial lung disease Follows with Dr. Eid/XANDER Hx of migraines History of COVID-19 08/2020, loss taste/smell, body aches, sinus issues > resolved (after sinus surgery) none since History of carotid artery disease mild bilateral intracranial ICA stenoses-head MRA 02/2022 Diverticulitis Hx, 2018 Surgical History Hx of cataract extraction Hx of right cataract extraction will see Dr Huff 08/28/23 for F/U H/O hemorrhoidectomy History of tubal ligation Nausea and vomiting after administration of anesthetic agent Years ago, denies needing scop patch History of esophagogastroduodenoscopy (EGD) Hx of colonoscopy Hx of squamous cell carcinoma excision Excision (head) History of back surgery lumbar Family History Other No significant family history Social History Smoking Status: Never smoker Second Hand Exposure: Yes (in past); Do You Dip or Chew Tobacco: No; Hx Alcohol Use: No Hx Substance Use: No Preferred Language: Malay Communication Ability: Effective Brassiere Cup Mold Cutter Required: No Beliefs That Will Affect Care: None Current Living Situation: Alone Current Living Situation Comment: Lives in a mother in law suite Feels Safe at Home: Yes Assistive Devices: Denture - Upper and Glasses Review of Systems Review of Systems: Neuro: (-) Falls, trauma, slurred speech (+) R anterior tatum HEENT: (-) DUKE, dizziness, dysphagia, visual or auditory changes CV: (-) CP, palpitations, swelling Resp: (-) SOB GI: (-) appetite changes, N/V/D, bowel changes : (-) urinary changes Skin: (-) rashes Psych: (-) anxiety, depression Physical Exam Physical Exam: Neuro: AAOx4, PERRLA, no aphagia, memory changes, CNII-XII grossly intact HEENT: head normocephalic, moist mucus membranes CV: S1/S2, (-) M/G/R, (-) edema, cap refill < 3 seconds Resp: Lungs CTA in all cole. On RA GI: Abdomen S/NT/ND, Ax4 bowel sounds, (-) CVA tenderness Musculoskeletal: 5/5 B/L UE strength, 5/5 B/L LE strength. No gait disturbance Skin: (-) rashes , (-) erythema. (+) L patellar sutures medial aspect 5 sutures, distal aspect 10 sutures; newly placed; wound edges well approximated. R anterior tatum with dressing intact. R knee immobilizer in place Psych: euthymic mood Results & Data Results & Data Vital Signs (Past 12 Hours) Vital Signs Temp Pulse Pulse Resp BP BP Pulse Ox 02/25/24 16:00 60 18 112/63 100 02/25/24 13:42 71 02/25/24 13:18 36.6 C 67 16 138/82 98 O2 Del Method 02/25/24 16:00 Room Air 02/25/24 13:42 02/25/24 13:18 Room Air Laboratory Results Short CBC 02/25/24 Range/Units 13:58 WBC 6.97 (4.8-10.8) K/ul Hgb 11.3 L (12.0-16.0) g/dl Hct 33.7 L (37.0-47.0) % Plt Count 223 (130-400) K/uL BMP 02/25/24 13:58 Sodium 131 L Potassium 4.2 Chloride 104 Carbon Dioxide 22 BUN 22 Creatinine 0.70 Glucose 94 Calcium 9.5 Diagnostic Findings Knee X-Ray 02/25/24 13:45 LEFT KNEE 3 VIEWS CLINICAL HISTORY: Fall. FINDINGS: AP, crosstable lateral, and sunrise views of the left knee are compared to study dated 11/28/2023. The skeletal structures are osteopenic. There is a displaced avulsion fracture seen along the anterior aspect of the tibial tuberosity. This is only seen on the lateral projection. No additional fracture is identified. A left knee arthroplasty is in near anatomic alignment. No periprosthetic lucency is identified. There has been undersurface remodeling of the patella. There is a small joint effusion. The overlying soft tissues are normal as imaged. A calcified fabella is incidentally noted. IMPRESSION: 1. Displaced avulsion fracture along the anterior aspect of the tibial tuberosity. 2. No additional fracture is seen. 3. A left knee arthroplasty is in near anatomic alignment. Electronically signed by: Sd Sutherland M.D. 02/25/2024 3:12 PM Knee X-Ray 02/25/24 13:45 XR knee RT 3V CLINICAL HISTORY: fall. Bilateral knee pain. COMPARISON STUDY: Right hip CT 10/26/2023. FINDINGS: There is a right total knee arthroplasty. Nondisplaced periprosthetic fracture within the proximal metaphysis of the right tibia. This may extend into the lateral tibial plateau. The distal femur and patella are intact. There is proximal tibial soft tissue swelling. There is a moderate knee effusion. IMPRESSION: 1. Nondisplaced acute periprosthetic fracture within the proximal metaphysis of the right tibia which may extend into the lateral tibial plateau. 2. Moderate knee effusion. ACT 112: Negative or not required by law. Electronically signed by: Cheng Hoover M.D. 02/25/2024 3:36 PM Code Status & VTE Plan Code Status Full Code in the event of cardiac or respiratory arrest VTE Prophylaxis Plan VTE Prophylaxis will be ordered: Yes Supervising Physician Co-Signing Physician Notes I have seen and discussed the case with the collaborating advanced practitioner. I agree with the above H&P. I have reviewed and confirmed the patients medical history, the findings on physical examination, and the patients diagnosis and treatment plan with PA-C and agree with the information documented. In short, Ms. Christian is a 73 year old woman with ILD, HTN, HLD, depression and anxiety, hypothyroidism and left total knee replacement x2 who is admitted for left knee laceration and right knee abrasion c/b avulsion fracure and tibial fracture. Patient underwent suturing to left knee in ED and washout. Exam with left knee s/p suturing, right knee with dressing in place. #Avulsion fracture left knee #Right tibial plateau fracture #s/p bilateral TKA -ortho following NPO at midnight DVT ppx contingent on surgical planning rest of plan as above I spent a total of 35 minutes coordinating, documenting, and providing care for this patient excluding time spent in the performance of separately billed services. All of the aforementioned completed outside of collaborating with the assigned advanced practitioner for a full treatment plan. I have reviewed the advanced practitioner's documentation, and I agree with, and take responsibility for the plan of care (4) HTN (hypertension) Hypertension type: unspecified secondary hypertension Qualified Code(s): I15.9 - Secondary hypertension, unspecified
--- NOTE | 2024-02-25 16:53 | Emergency Department Note ---
ED Visit Note EMERGENCY DEPARTMENT PROCEDURE NOTE: I was asked by Dr. Leyva to repair the left knee lacerations of this 73-year-old female patient. Please refer to their dictation for the complete history, physical exam, and ED course. EMERGENCY DEPARTMENT COURSE: The patient has 2 lacerations over the anterior left knee. The first is a horizontal laceration just inferior to the patella, measuring 2 cm in length. Second laceration inferior to this, more over the patellar tendon is L-shaped and measures 5 cm in length. The entire knee anteriorly was prepped with Betadine and draped with sterile towels. Lacerations were anesthetized with 1% lidocaine. Wounds were irrigated thoroughly with normal saline solution. 2 cm laceration was repaired using 5, 4-0 nylon sutures. 5 cm laceration was repaired using 10, 4-0 nylon sutures. Patient tolerated the procedure well. Please refer to admission H&P and orders for additional information.
[2024-02-25] MEDS: busPIRone 5 MG TAB PO SCH (20:38)
[2024-02-25] MEDS: ROSUVASTATIN CALCIUM 5 MG TAB PO SCH (20:38)
[2024-02-25] MEDS: PANTOprazole 40 MG TAB PO SCH (20:38)
[2024-02-25] MEDS: traZODone HCL 50 MG TAB PO SCH (20:39)
[2024-02-25] MEDS: DOCUSATE SODIUM 100 MG CAP PO SCH (20:39)
[2024-02-25] MEDS: FERROUS SULFATE 325 MG TAB PO SCH (20:40)
[2024-02-25] MEDS: PRAMIPEXOLE DIHYDROCHLO 0.25 MG TAB PO SCH (20:40)
[2024-02-25] MEDS: CEROVITE ADV FORMULA TAB PO SCH (20:41)
[2024-02-25] MEDS: LOSARTAN POTASSIUM 50 MG TAB PO SCH (20:43)
[2024-02-25] MEDS: CALCIUM CARBONATE 1250MG TAB PO SCH (20:45)
[2024-02-25] MEDS: AMPICILLIN 2,000 MG in SODIUM CHLOR 0.9% MINI-B 100 ML IV SCH (21:37)
[2024-02-25] MEDS: oxyCODONE HCL IR 5 MG TAB (IMMEDIATE RELEASE) PO PRN (22:12)
[2024-02-26] MEDS: LEVOTHYROXINE SODIUM 88 MCG TABLET PO SCH (04:53)
[2024-02-26] MEDS: SODIUM CHLORIDE 0.9% 1,000 ML IV ONE (06:04)
[2024-02-26 07:06] LABS: Basophils # (auto) 0.06 K/uL (0.00-0.20); Basophils % (auto) 0.7 %; Eosinophils # (auto) 0.28 K/uL (0.00-0.50); Eosinophils % (auto) 3.1 %; Hematocrit (blood only) 30.4 % (37.0-47.0); Hemoglobin 10.1 g/dl (12.0-16.0); Immature Granulocytes # (auto) 0.04 K/uL (0.01-0.20); Immature Granulocytes % (auto) 0.4 %; Lymphocytes # (auto) 2.11 K/uL (1.20-3.40); Lymphocytes % (auto) 23.2 %; Mean Corpuscular Hemoglobin 35.4 pg (25.0-34.0); Mean Corpuscular Hgb Conc 33.2 g/dL (32.0-36.0); Mean Corpuscular Volume 106.7 fL (80.0-100.0); Mean Platelet Volume 8.7 fL (9.4-12.4); Monocytes # (auto) 0.77 K/uL (0.11-0.59); Monocytes % (auto) 8.5 %; Neutrophils # (auto) 5.82 K/uL (1.40-6.50); Neutrophils % (auto) 64.1 %; Platelet Count 216 K/uL (130-400); RDW Coefficient of Variation 13.1 % (11.5-14.5); RDW Standard Deviation 51.2 fL (36.4-46.3); Red Blood Count 2.85 M/uL (4.20-5.40); White Blood Count 9.08 K/ul (4.8-10.8)
[2024-02-26 07:26] LABS: BUN Creatinine Ratio 29.2 (10-20); Calcium 8.6 mg/dl (8.6-10.3); Creatinine Clr Calc Pharmacy 59.4 ml/min; Est GFR (Non-African American) 64.7 ml/min; Potassium 4.6 mmol/L (3.5-5.1)
--- OUTSIDE RECORDS SUMMARY | 2024-02-26 08:02 | External Medical Summary | Summary of Care ---
Author Name Unknown Organization [facility] Address [address] [facility] [address] Phone [phone] Care Team Providers Care Feed Research Aide Name Role Phone Otonieljose Umahallie Stanford DO Primary Care Provider Reason for Visit * Reason Onset Date Comments Med Request 02/18/2024 Encounter Details Date Type Department Care Team (Late st Contact Info) Description 02/18/2024 Telephone Pharmacy, [facility] [address] [facility] [place] [address] [facility] [place] [address] Med Request Allergies Active Allergy Reactions Criticality Noted Date Comments Diphenhydramine 06/12/2023 HALLUCINATIONS. Gabapentin 10/10/2022 Retained fluid Lisinopril Cough 08/09/2019 Pregabalin Other (Please comment) 02/14/2023 Hot all over " I felt like I was on fire inside and out" Morphine Sulfate 07/19/2010 Lowers her blood pressure documented as of this encounter (statuses as of 02/18/2024) Medications Medication Sig Dispensed Refills Start Date End Date Status CALCIUM 600 600 MG PO TABSIndications:in pm Take by mouth. Active OCUVITE EXTRA PO TABS once daily 06/15/2013 Active ECOTRIN LOW STRENGTH 81 MG PO TBEC One pill by mouth once a day 100 Tab 5 12/14/2013 Active Cyanocobalamin 1000 MCG Oral TabletIndications:at lunchtime Take 1 Tablet by mouth in the morning. 12/28/2015 Active Magnesium 250 MG Tablet Take 1 Tablet by mouth in the morning. Active Cholecalciferol (VITAMIN D-3) 5000 units Tablet Take 1 Tablet by mouth in the morning. Active Docusate Sodium 100 MG Oral Capsule Take 1 Capsule by mouth in the morning and 1 Capsule before bedtime. Active Amoxicillin 500 MG Oral Capsule (Amoxil) 05/31/2021 Active buPROPion HCl ER (SR) 150 MG Oral Tablet Extended Release 12 Hour (Wellbutrin SR) Take 1 Tablet by mouth in the morning. In the morning.. 30 Tablet 1 02/20/2023 Active traZODone HCl 100 MG Oral Tablet (Desyrel) Take 1 Tablet by mouth at bedtime. 2 at bedtime 180 Tablet 04/02/2023 Active Lysine 500 MG Oral Tablet Take by mouth. Active valACYclovir HCl 500 MG Oral Tablet (Valtrex)Indications :Oral ulcer TAKE 1 TABLET BY MOUTH IN THE MORNING. FOR TRANSMISSION REDUCTION. 90 Tablet 1 07/22/2023 Active Cyproheptadine HCl 4 MG Oral Tablet (Periactin)Indicatio ns:in evening 1 tablet daily 90 Tablet 5 07/28/2023 Active Levothyroxine Sodium 88 MCG Oral Tablet (Levoxyl)Indications :Hypothyroidism TAKE 1 TABLET BY MOUTH EVERY MORNING ON AN EMPTY STOMACH 90 Tablet 3 08/06/2023 Active Atenolol 25 MG Oral Tablet (Tenormin) TAKE 1 TABLET IN THE MORNING STRENGTH: 25 MG 90 Tablet 1 09/03/2023 Active busPIRone HCl 10 MG Oral Tablet (Buspar)Indications: Anxiety state,Adjustment disorder with depressed mood TAKE 1 TABLET BY MOUTH IN THE MORNING, 1 AT NOON AND 1 BEFORE BEDTIME 20 Tablet 11/12/2023 Active Rosuvastatin Calcium 5 MG Oral Tablet (Crestor)Indications :Hyperlipidemia TAKE 1 TABLET BY MOUTH EVERY DAY IN THE MORNING 90 Tablet 1 12/06/2023 Active Meclizine HCl 12.5 MG Oral Tablet (Antivert)Indication s:Vertigo TAKE 1 TABLET BY MOUTH THREE TIMES A DAY NEEDED FOR DIZZINESS 45 Tablet 1 12/05/2023 Active Loratadine 10 MG Oral Tablet (Claritin)Indication s:Other chronic sinusitis TAKE 1 TABLET BY MOUTH EVERY DAY IN THE MORNING 90 Tablet 1 12/09/2023 Active Folic Acid 1 MG Oral Tablet TAKE 1 TABLET BY MOUTH EVERY DAY IN THE MORNING 90 Tablet 1 12/17/2023 Active Omeprazole 20 MG Oral Capsule Delayed Release (PriLOSEC)Indication s:Gastroesophageal reflux disease without esophagitis TAKE 1 CAPSULE IN THE MORNING AND 1 CAPSULE BEFORE BEDTIME (DOSE INCREASE) 180 Capsule 12/24/2023 Active Ondansetron HCl 4 MG Oral Tablet (Zofran)Indications: Nausea Take 1 Tablet by mouth every 6 hours as needed for Nausea. 60 Tablet 1 12/24/2023 Active Pramipexole Dihydrochloride 0.25 MG Oral Tablet (Mirapex)Indications :Restless legs syndrome TAKE 1 TABLET BY MOUTH IN THE MORNING, 1 AT NOON AND 1 BEFORE BEDTIME 270 Tablet 1 12/31/2023 Active azaTHIOprine 50 MG Oral Tablet (Imuran) Take 2 Tablets by mouth in the morning. 180 Tablet 2 01/01/2024 Active Diclofenac Sodium 1 % External Gel (Voltaren) APPLY TO AFFECTED AREA 4 TIMES A DAY 100 g 1 01/05/2024 Active Losartan Potassium 50 MG Oral Tablet (Cozaar)Indications: HTN, goal below 140/90 TAKE 1 TABLET BY MOUTH IN THE MORNING AND BEFORE BEDTIME 180 Tablet 3 01/29/2024 Active Ferrous Sulfate 325 (65 Fe) MG Oral Tablet (Feosol) ONE PILL EVERY OTHER DAY 45 Tablet 1 02/09/2024 Active tiZANidine HCl 2 MG Oral Tablet (Zanaflex) Take 1-2 tablets by mouth at night as needed for pain or muscle spasm and tightness 180 Tablet 3 02/18/2024 Active documented as of this encounter (statuses as of 02/18/2024) Active Problems Problem Noted Date Diagnosed Date Pain in both feet 05/30/2023 Food insecurity 03/31/2023 Overview: Per [email or web address] Protocol ILD (interstitial lung disease) 04/12/2021 [...] as of this encounter (statuses as of 02/18/2024) Resolved Problems Problem Noted Date Diagnosed Date Resolved Date Occupational exposure in workplace 04/12/2021 01/28/2023 Prediabetes 05/01/2020 11/30/2020 Overview: Per [facility] protocol ILD (interstitial lung disease) 10/08/2019 03/23/2020 KING (dyspnea on exertion) 10/01/2019 Adenomatous colon polyp 05/21/2016 03/09/2018 Kidney disease, chronic, sta ge III (GFR [...] as of this encounter (statuses as of 02/18/2024) Immunizations Name Administration Dates Next Due COVID-19 [...] encounter Miscellaneous Notes * Telephone Encounter - Anaya Hinojosa RPh - 02/18/2024 2:15 PM EDT Thank you, I also stressed this. Anaya Hinojosa, Pharm D, BCACP Clinical Pharmacist 02/18/2024, 2:16 PM * Telephone Encounter - Uma Mark DO - 02/18/2024 2:14 PM EDT Yes I can again, I did talk with her and told her that narcotics are not ideal for a long-term solution * Telephone Encounter - Anaya Hinojosa RPh - 02/18/2024 2:13 PM EDT Agreed those are two very large and real concerns. Can you please discuss that with her, I'm not sure that I have anything else to offer given her extensive list of medications tried and also her useof at least 3 serotonin medications at this time, which truly makes her ineligible for many of the options I would recommend. Thank you, Anaya Hinojosa Pharm D, JACINTO Clinical Pharmacist 02/18/2024, 2:13 PM * Telephone Encounter - Uma Mark DO - 02/18/2024 2:07 PM EDT I feel given her age and other medical problems a chronic narcotic would not be ideal for her. * Telephone Encounter - Anaya Hinojosa RPh - 02/18/2024 10:50 AM EDT Romulo, Patient seen in [facility] Pain today. Recommending start of low dose oxycodone, prescription pended for your approval. Thank you, Anaya Hinojosa, Pharm D, JACINTO Clinical Pharmacist 02/18/2024, 10:51 AM documented in this encounter Plan of Treatment Upcoming Encounters Date Type Department Care Team (Late st Contact Info) Description 03/03/2024 3:00 PM EDT Office Visit Cosmetic Surgery & Aesthetics [place] [address] Nikky Trinidad MD [address] [place] [address] 03/24/2024 8:30 AM EDT Office Visit Rheumatology [facility] [address] [facility] [place] [address] Lance Castanon CRNP [address] [place] [address] 03/31/2024 10:30 AM EDT Telemedicine Pharmacy, [facility] [address] [facility] [address] [facility] [address] [place] [address] 04/20/2024 11:25 AM EDT Office Visit Interventional Pain Center, [facility] [address] [facility] [place] [address] Natan Collins, DO [address] [facility] [place] [address] 06/28/2024 9:30 AM EDT Office Visit [address] [phone] Uma Mark, [address] [address] Scheduled Procedures Name Priority Associated Diagnoses Date/Ti me COLONOSCOPY FLEXIBLE PROXIMAL DIAGNOSTIC Recall History of colon polyps Health Maintenance Due Date Last Done Comments Cologuard 1996 Fecal Occult Blood Test 1996 Sigmoidoscopy 1996 COVID-19 Vaccine ( season) 2023 08/28/2023, 06/12/2021, 11/23/2020, Additional history exists Mammogram 04/18/2024 04/18/2023, 03/23, 04/15/2022, Additional history exists DXA Scan 10/28/2024 10/28/2017, 09/2009, 10/23/2009 GFR 12/23/2024 12/24/2023, 02/2024, 10/26/2023, Additional history exists TSH 12/23/2024 12/24/2023, 10/2022, 05/23/2022, Additional history exists Albumin/Creatinine Ratio 06/23/2026 023, 05/23/2022, 07/01/2012, Additional history exists Colonoscopy 10/03/2026 10/03/2021, 09/22, 02/17/2018, Additional history exists Colorectal Cancer Screening 10/03/2026 Lipid Panel 12/23/2028 12/24/2023, 09/2021, 04/12/2021, Additional history exists DTaP,Tdap,and Td Vaccines (3 - Td or Tdap) 08/09/2029 08/09/2019, 06/22/2007 RETIRED - COLONOSCOPY-EVERY 5 YRS AGES 18-100 Discontinued 10/03/2021, 10/03/2021, 02/17/2018, Additional history exists Zoster Vaccines Completed 11/06/2021, 08/02/2021 Influenza Vaccine (FLU shot) Completed 06/23/2023, 05/23/2022, 05/23/2022, Additional history exists Pneumococcal Vaccine: 65+ Years [...] Documents on File Type Date Recorded Patient Rack Room Worker Expl anation Power of Community Relations Liaison 08/28/2016 POWER OF A TTORNEY POWER OF ENROLLMENT MANAGEMENT VICE PRESIDENT [facility] Care Teams Feed Research Aide Relationship Specialty Start Date End Date Uma Mark DO [address] [place] [address] PCP - General Family Medicine 12/20/22 documented as of this encounter
--- OUTSIDE RECORDS SUMMARY | 2024-02-26 08:02 | External Medical Summary | Summary of Care ---
Author Name Unknown Organization [facility] Address [address] [facility] [address] Phone [phone] Care Team Providers Care Graphics Production Specialist Name Role Phone Otonieljose Umahallie Stanford DO Primary Care Provider [phone] Reason for Visit * Reason Onset Date Comments Med Request 02/18/2024 Encounter Details Date Type Department Care Team (Late st Contact Info) Description 02/18/2024 Telephone Pharmacy, [facility] [address] [facility] [place] [address] [facility] [address] [facility] [place] [address] Med Request Allergies Active Allergy Reactions Criticality [...] feet 05/30/2023 Food insecurity 03/31/2023 Overview: Per [email or web address] Protocol ILD (interstitial lung disease) 04/12/2021 [...] that narcotics are not ideal for a skilled nursing solution * Telephone Encounter - Anaya Hinojosa [...] 10:50 AM EDT Romulo, Patient seen in [facility] Pain today. Recommending start of low dose oxycodone, prescription pended for your approval. Thank you, Anaya Hinojosa, Pharm D, JACINTO Clinical Pharmacist 02/18/2024, 10:51 AM documented in this encounter Plan of Treatment Upcoming Encounters Date Type Department Care Team (Late st Contact Info) Description 03/03/2024 3:00 PM EDT Office Visit Cosmetic Surgery & Aesthetics [place] [address] Nikky Trinidad MD [address] [place] [address] 03/24/2024 8:30 AM EDT Office Visit Rheumatology [facility] [address] [facility] [place] [place] [address] Lance Castanon CRNP [address] [place] [address] 03/31/2024 10:30 AM EDT Telemedicine Pharmacy, [facility] [address] [facility] [address] [facility] [address] [place] [address] 04/20/2024 11:25 AM EDT Office Visit Interventional Pain Center, [facility] [address] [facility] [place] [address] Natan Collins, DO [address] [place] [address] 06/28/2024 9:30 AM EDT Office Visit [address] [phone] Uma Mark, [address] [address] Scheduled Procedures Name Priority Associated Diagnoses Date/Ti [...] Documents on File Type Date Recorded Patient Media Specialist Expl anation Power of Orthotic Fitter 08/28/2016 POWER OF A TTORNEY POWER OF FARM GENERAL MANAGER [facility] Care Teams Graphics Production Specialist Relationship Specialty Start Date End Date Uma Mark DO [address] [place] [address] PCP - General Family Medicine 12/20/22 documented as of this encounter
--- OUTSIDE RECORDS SUMMARY | 2024-02-26 08:03 | External Medical Summary | Summary of Care ---
Author Name Unknown Organization [facility] Address [address] [facility] [place] [address] Phone [phone] Care Team Providers Care Key Operator Name Role Phone Deedee Umahallie Stanford DO Primary Care Provider Reason for Visit * Reason Comments Dosage Adjustment In Person (Anticoag Cl inic) Pain Encounter Details Date Type Department Care Team (Latest Contact Info) Description 02/18/2024 10:30 AM EDT [facility]medicine Pharmacy, [facility] [address] [facility] 132 [facility] [place] [address] Primary osteoarthritis of both hands* Allergies Active Allergy Reactions Criticality Noted Date [...] Active OCUVITE EXTRA PO TABS once daily 3 Active ECOTRIN LOW STRENGTH 81 MG PO TBEC One pill by mouth once a day 100 Tab 5 4 Active Cyanocobalamin 1000 MCG Oral TabletIndications:at lunchtime Take 1 Tablet by mouth in the morning. 6 Active Magnesium 250 MG Tablet Take 1 Tablet by mouth in the morning. Active Cholecalciferol (VITAMIN D-3) 5000 units Tablet Take 1 Tablet by mouth in the morning. Active Docusate Sodium 100 MG Oral Capsule Take 1 Capsule by mouth in the morning and 1 Capsule before bedtime. Active Amoxicillin 500 MG Oral Capsule (Amoxil) 1 Active buPROPion HCl ER (SR) 150 MG Oral Tablet Extended Release 12 Hour (Wellbutrin SR) Take 1 Tablet by mouth in the morning. In the morning.. 30 Tablet 1 3 Active traZODone HCl 100 MG Oral Tablet (Desyrel) Take 1 Tablet by mouth at bedtime. 2 at bedtime 180 Tablet 3 Active Lysine 500 MG Oral Tablet Take by mouth. Active valACYclovir HCl 500 MG Oral Tablet (Valtrex)Indications :Oral ulcer TAKE 1 TABLET BY MOUTH IN THE MORNING. FOR TRANSMISSION REDUCTION. 90 Tablet 1 3 Active Cyproheptadine HCl 4 MG Oral Tablet (Periactin)Indicatio ns:in evening 1 tablet daily 90 Tablet 5 3 Active Levothyroxine Sodium 88 MCG Oral Tablet (Levoxyl)Indications :Hypothyroidism TAKE 1 TABLET BY MOUTH EVERY MORNING ON AN EMPTY STOMACH 90 Tablet 3 3 Active Atenolol 25 MG Oral Tablet (Tenormin) TAKE 1 TABLET IN THE MORNING STRENGTH: 25 MG 90 Tablet 1 3 Active busPIRone HCl 10 MG Oral Tablet (Buspar)Indications: Anxiety state,Adjustment disorder with depressed mood TAKE 1 TABLET BY MOUTH IN THE MORNING, 1 AT NOON AND 1 BEFORE BEDTIME 20 Tablet 4 Active Rosuvastatin Calcium 5 MG Oral Tablet (Crestor)Indications :Hyperlipidemia TAKE 1 TABLET BY MOUTH EVERY DAY IN THE MORNING 90 Tablet 1 4 Active Meclizine HCl 12.5 MG Oral Tablet (Antivert)Indication s:Vertigo TAKE 1 TABLET BY MOUTH THREE TIMES A DAY NEEDED FOR DIZZINESS 45 Tablet 1 4 Active Loratadine 10 MG Oral Tablet (Claritin)Indication s:Other chronic sinusitis TAKE 1 TABLET BY MOUTH EVERY DAY IN THE MORNING 90 Tablet 1 4 Active Folic Acid 1 MG Oral Tablet TAKE 1 TABLET BY MOUTH EVERY DAY IN THE MORNING 90 Tablet 1 4 Active Omeprazole 20 MG Oral Capsule Delayed Release (PriLOSEC)Indication s:Gastroesophageal reflux disease without esophagitis TAKE 1 CAPSULE IN THE MORNING AND 1 CAPSULE BEFORE BEDTIME (DOSE INCREASE) 180 Capsule 4 Active Ondansetron HCl 4 MG Oral Tablet (Zofran)Indications: Nausea Take 1 Tablet by mouth every 6 hours as needed for Nausea. 60 Tablet 1 4 Active Pramipexole Dihydrochloride 0.25 MG Oral Tablet (Mirapex)Indications :Restless legs syndrome TAKE 1 TABLET BY MOUTH IN THE MORNING, 1 AT NOON AND 1 BEFORE BEDTIME 270 Tablet 1 4 Active azaTHIOprine 50 MG Oral Tablet (Imuran) Take 2 Tablets by mouth in the morning. 180 Tablet 2 4 Active Diclofenac Sodium 1 % External Gel (Voltaren) APPLY TO AFFECTED AREA 4 TIMES A DAY 100 g 1 4 Active Losartan Potassium 50 MG Oral Tablet (Cozaar)Indications: HTN, goal below 140/90 TAKE 1 TABLET BY MOUTH IN THE MORNING AND BEFORE BEDTIME 180 Tablet 3 4 Active Ferrous Sulfate 325 (65 Fe) MG Oral Tablet (Feosol) ONE PILL EVERY OTHER DAY 45 Tablet 1 4 Active tiZANidine HCl 2 MG Oral Tablet (Zanaflex) Take 1-2 tablets by mouth at night as needed for pain or muscle spasm and tightness 180 Tablet 3 4 Active tiZANidine HCl 2 MG Oral Tablet (Zanaflex) Take 1-2 tablets by mouth at night as needed for pain or muscle spasm and tightness 180 Tablet 3 3 02/18/20 24 Discontinu ed(Refill) Naltrexone HCl 50 MG Oral Tablet (Revia) Take 1 Tablet by mouth in the morning. 30 Tablet 5 4 02/18/20 24 Discontinu ed(Patient preference /discontin uation) traMADol HCl 50 MG Oral Tablet (Ultram) Take 1 Tablet by mouth. 4 02/18/20 24 Discontinu ed(Patient preference /discontin uation) DULoxetine HCl 60 MG Oral Capsule Delayed Release Particles (Cymbalta)Indication s:Primary osteoarthritis of both hands,Primary osteoarthritis of both knees,Primary osteoarthritis of hip, unspecified laterality TAKE 1 CAPSULE BY MOUTH EVERY DAY IN THE MORNING 30 Capsule 5 4 02/18/20 24 Discontinu ed(Patient preference /discontin uation) documented as of this encounter (statuses as [...] as of this encounter Progress Notes * Anaya Hinojosa, [facility] - 02/18/2024 10:29 AM EDT Images from the original note were not included. Patient location: HOME. I was in a hospital or clinic location. After connecting through [employer],patient was verified with two unique identifiers. Patient (or authorized legal open claims representative) was then informed that this was a Telemedicine visit and being conducted confidentially over secure lines. Methods to assure confidentiality were taken. Patient acknowledged consent and understanding of pr ivacy and security of the Telemedicine visit. The patient agreed to participate. Medication Therapy Disease Management Clinic - Chronic Pain Management Progress Note 02/18/2024 Kalee Christian, identified by name and date of , is a 73 year old female being seen for chronic pain management/education. Patient presents to pain MTM clinic for return visit. Referring Physician: Dr. Guillermo Medication Use Agreement: On file - 01/17/21 [facility]acy: [facility] CHIEF COMPLAINT: OA of knees, neuropathy, back pain HPI: Notes she is having pain in her back and hip Notes she has nothing to take with pain Notes she is not taking naltrexone at this time Notes she stopped taking duloxetine Notes she had an ablation with Dr. Collins and has a follow up with him Pain described as: stabbing,pinching in lower back, some tingling and numbness down to upper thigh on left side predominately, burning, tingling, numbness and pins and needles in lower legs below knees Sleep: affected Palliating factors: lying down or sitting Exacerbating factors: activity such as walking Other interventions tried: Injections/Nerve Block Physical Therapy Surgery Worst time of day for pain: evening/nighttime Imaging: IMPRESSION: 1. Status post L4-L5 intervertebral disc spacer placement, L4 total laminectomy, L5 partial laminectomy, and L4-L5 instrumented posterior spinal fusion. Laminectomy site postoperative peridural fibrosis/granulation tissue is suboptimally assessed on this noncontrast MR. Contrast-enhanced lumbar spine MR may be performed for further evaluation, provided there is no clinical contraindication to intravenous gadolinium-based contrast. 2. Moderate L3-L4 spinal canal stenosis. Mild L2-L3 spinal canal stenosis. No additional lumbar spinal canal stenosis. 3. Nerve root contact at L1-L2, L2-L3, L3-L4, L4-L5, and L5-S1. Correlation with dermatomal symptomlevel recommended. 4. Multilevel neural foraminal narrowing, at worst moderate. 5. Grade I retrolisthesis of L3 on L4. 6. Convex left thoracolumbar scoliosis, measuring 17 degrees by Mendez method between superior T12 and inferior L5 endplates. 7. 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 8. T11-T12, T12-L1, and L1-L2, L2-L3, and L3-L4 disc level mixed fibrovascular and fatty degenerative endplate changes. Fibrovascular degenerative endplate changes may be symptomatic. COMMENT: The following findings are so common on lumbar spine MR in normal, pain-free volunteers that while we report their presence, they must be interpreted with caution and in the context of the clinical situation. Among people over the age of 60 who do not have back pain, lumbar spine MR will find that about: - 9 in 10 have disk degeneration - 9 in 10 have disk signal loss (desiccation) - 8 in 10 have disk height loss - 8 in 10 have a bulging disk - 4 in 10 have an annular fissure - 4 in 10 have a disk protrusion - 4 in 10 have facet degeneration - 3 in 10 have spondylolisthesis Psychiatric Hx: Anxiety and depression Neurological Hx: None Cardiac Hx: None Renal Hx: None Hepatic Hx: None Other: intersital lung disease, inconclusive sleep apena test Exercise/Activity: limited but does note to walking more Tobacco Use: Never Alcohol Use: very special ocassion maybe Illicit Substance/Rx Abuse: None CONTROLLED SUBSTANCE COMPLIANCE MONITORING: Opioid Risk Assessment Tool (BRQ): Total score: 0-2 points (Low risk) CAGE-AID (03/20/2023): Total score: 0 points (problem unlikely) Daily MME: 0 PDMP Reviewed (02/18/24): Urine Toxicology Screens:n/a Pill Count: N/a Functional Goal: QOL Current Pain Level (02/18/24): worse Pain Level (12/10/23): knee replacement on 11/27 with acute pain Pain Level (10/08/23): slightly improvement with naltrexone Pain Level (07/18/23): no change Pain Level (05/22/23): slightly worse (stopped Butrans) Pain Level (03/20/23): uncomfortable Pain Level (02/06/23): unchanged Pain Level (12/19/22): worse leg pain Pain Level (08/30/22): slightly worse Pain Level (07/05/22): 4-5/10 Pain Level (05/17/22): better with the butrans Pain Level (04/18/2022): average day -03/31, nightime up to 08/01 Past Pain Medications: SA Opioids: oxycodone, hydrocodone Long Acting Opioid- butrans- wasn't helping NSAID: Celecoxib- stopped due to feeling this would hurt her heart Antidepressants: amitriptyline-swelling, duloxetine- stopped due to other pysch medication Anticonvulsants:Gabapentin 300 mg daily -stopped taking swelling in lower extremities, mental fog; Lyrica-whole body "on fire;" Topamax-Swelling in extremities, dizziness/balance issues, drowsiness/fatigue , naltrexone Current Pain Medications: Tizanidine 1-2 tabs at night prn - currently out at this time Voltaren gel *buproprion, trazadone, buspirone Creatinine Clearance: Serum creatinine: 0.6 mg/dL 12/24/23 1118 Estimated creatinine clearance: 65.1 mL/min Creatinine Results: Recent Labs Units 12/24/23 1118 10/28/23 0711 10/26/23 0000 CREATININE - [facility] mg/dL 0.6 0.7 -- CREATININE-OUTSIDE LAB MG/DL -- -- 0.62 Hepatic Function (ALT): Recent Labs Units 12/24/23 1118 09/11/23 0928 03/14/23 0937 ALT - [facility] U/L 17 21 20 Comprehensive Metabolic Panel Results: Results for orders placed or performed in visit on 12/24/23 COMPREHENSIVE METABOLIC PANEL Result Value Ref Range BUN 16 6 - 20 mg/dL Creatinine 0.6 0.5 - 1.0 mg/dL Estimated Glomerular Filtration Rate >90 >=60 mL/min Sodium 136 135 - 146 mmol/L Potassium 4.4 3.5 - 5.1 mmol/L Chloride 99 98 - 107 mmol/L CO2 26 22 - 32 mmol/L Anion Gap 11 7 - 15 mmol/L Glucose 95 70 - 120 mg/dL Albumin 4.2 3.8 - 5.0 g/dL AST 20 10 - 35 U/L Alkaline Phosphatase 85 35 - 130 U/L Bilirubin, Total 0.2 <=1.2 mg/dL Calcium 9.5 8.4 - 10.2 mg/dL Protein 6.6 6.0 - 8.3 g/dL ALT 17 10 - 35 U/L ASSESSMENT: Patient aware MTM is a clinical pharmacist visit, with focus on medication options for current diagnoses referred by Primary Care Provider for review and optimization. Focus of this visit is Medication Optimization. Current concerns: lack of pain control Adherence: Reviewed current regimen, patient is adherent to regimen. Patient notes discontinued naltrexone due to not helping, discontinued celebrex due to fear of side effects, psychologist Dr. Barrow discontinued duloxetine due to excessive serotonin and she is out of tizanidine Treatment options: very limited options due to trial and failure of multiple medications, due to serotonin load and also due to her fear of side effects, at this time given the pathology of arthritiswould recommend low dose opioid therapy and restart of her muscle relaxer at bedtime Treatment concerns: concern for continued pain and lack of treatment options Education provided: discussed not drinking a bedtime tea with banana peel which can increase serotonin levels in addition to current medications instead try camomile or other sleepy time tea, discussed rational and reveiewed moa and ae of oxycodone I have evaluated the patient for the appropriateness and necessity of opioid pain medications. Patient has been educated towards the benefits and risks of opioid medications, including dependence, addiction, and overdose. Patient is aware of the requirements set out in the medication use agreement,including the need for routine urine drug screening. No red flags for abuse or misuse have been exhibited. PLAN: START: Oxycodone 5 mg BID prn RESTART: Tizanidine 2-4 mg HS prn Medication changes: yes, see below Pain Medications: Tizanidine 1-2 tabs at night prn - currently out at this time Voltaren gel START: oxycodone 5 mg BID prn *buproprion, trazadone, buspirone Patient verbalized understanding of the plan. Contact clinic with any issues. FOLLOW UP: Return to clinic in 6 weeks 03/31/2024 Anaya Hinojosa [facility] Clinical Pharmacist - Yoga Teacher Medication Therapy Management Clinic 02/18/2024, 10:29 AM documented in this encounter Plan of Treatment Upcoming Encounters Date Type Department Care Team (Late st Contact Info) Description 03/03/2024 3:00 PM EDT Office Visit Cosmetic Surgery & Aesthetics [place] [address] [facility] [place] [address] Nikky Trinidad MD 16 [place] [address] 03/24/2024 8:30 AM EDT Office Visit Rheumatology [address] [place] [address] Lance Castanon CRNP [address] [place] [address] [place] [address] 03/31/2024 10:30 AM EDT Telemedicine Pharmacy, [facility] [address] [place] [address] [facility] [place] [address] 04/20/2024 11:25 AM EDT Office Visit Interventional Pain Center, [facility] [address] [place] [address] Natan Collins DO [address] [place] [phone] 06/28/2024 9:30 AM EDT Office Visit [address] [address] Uma Mark, DO [address] [place] [address] Scheduled Procedures Name Priority Associated Diagnoses Date/Ti [...] as of this encounter Visit Diagnoses Diagnosis Primary osteoarthritis of both hands- Primary documented in this encounter Advance Directives Documents on File Type Date Recorded Patient Soil Conservation Aide Expl anation Power of Manager Bilingual 08/28/2016 POWER OF A TTORNEY POWER OF BAILER TENDERS SUPERVISOR INFO Care Teams Key Operator Relationship Specialty Start Date End Date Uma Mark DO [address] [facility] [place] [address] PCP - General Family Medicine 12/20/22 documented as of this encounter
--- OUTSIDE RECORDS SUMMARY | 2024-02-26 08:03 | External Medical Summary | Summary of Care ---
Author Name Unknown Organization [facility] Address [address] [facility] [place] [address] Phone [phone] Care Team Providers Care Accessibility Lift Technician Name Role Phone Otnoieljose Umahallie Stanford DO Primary Care Provider Reason for Visit * Reason Onset Date Comments Med Request 02/18/2024 Encounter Details Date Type Department Care Team (Late st Contact Info) Description 02/18/2024 Telephone Pharmacy, [facility] 132 [facility] [place] [address] [facility] [place] [address] Med Request Allergies Active Allergy Reactions Criticality [...] feet 05/30/2023 Food insecurity 03/31/2023 Overview: Per [facility] Protocol ILD (interstitial lung disease) 04/12/2021 [...] encounter Miscellaneous Notes * Telephone Encounter - Uma Mark DO - 02/18/2024 2:14 PM EDT Yes I can again, I did talk with her and told her that narcotics are not ideal for a detention solution * Telephone Encounter - Anaya Hinojosa, [facility] - 02/18/2024 2:13 PM EDT Agreed those [...] the options I would recommend. Thank you, Abigail Blas D, JACINTO Clinical Pharmacist 02/18/2024, 2:13 PM * Telephone Encounter - Uma Mark DO - 02/18/2024 2:07 PM EDT I feel given her age and other medical problems a chronic narcotic would not be ideal for her. * Telephone Encounter - Anaya Hinojosa RPh - 02/18/2024 10:50 AM EDT Romulo, Patient seen in [facility] Pain today. Recommending start of low dose oxycodone, prescription pended for your approval. Thank you, Abigail Blas, JACINTO Clinical Pharmacist 02/18/2024, 10:51 AM documented in this encounter Plan of Treatment Upcoming Encounters Date Type Department Care Team (Late st Contact Info) Description 03/03/2024 3:00 PM EDT Office Visit Cosmetic Surgery & Aesthetics [facility] [address] [place], [place] [address] [place] [address] Nikky Trinidad MD [address] [place] [address] 03/24/2024 8:30 AM EDT Office Visit Rheumatology [facility] [address] [place] [address] Lance Castanon CRNP [address] [facility] [place] [address] 03/31/2024 10:30 AM EDT Telemedicine Pharmacy, [facility] [address] [place] [address] [facility] [address] [place] [address] 04/20/2024 11:25 AM EDT Office Visit Interventional Pain Center, [facility] [address] [place] [address] Natan Collins, DO [address] [place] [phone] 06/28/2024 9:30 AM EDT Office Visit [facility] [address] [place] [phone] Uma Mark [address] [place] [address] Scheduled Procedures Name Priority Associated Diagnoses Date/Ti [...] Cancer Screening 10/03/2026 Lipid Panel 12/23/2028 12/24/2023, 09/0 09/2021, 04/12/2021, Additional history exists DTaP,Tdap,and Td [...] Documents on File Type Date Recorded Patient Banking Consultant Expl anation Power of Animal Assisted Therapist 08/28/2016 POWER OF A TTORNEY POWER OF DURABLE MEDICAL EQUIPMENT REPAIRER [facility] Care Teams Accessibility Lift Technician Relationship Specialty Start Date End Date Uma Mark DO [address] [facility] [place] [address] PCP - General Family Medicine 12/20/22 documented as of this encounter
--- OUTSIDE RECORDS SUMMARY | 2024-02-26 08:03 | External Medical Summary | Summary of Care ---
Author Name Unknown Organization [facility] Address [address] [place] [address] Phone [phone] Care Team Providers Care Retail Advertising Account Executive Name Role Phone Uma Mark DO Primary Care Provider [phone] Reason for Visit * Reason Onset Date Comments Call Back 11/17/2023 Encounter Details Date Type Department Care Team (Late st Contact Info) Description 11/17/2023 Telephone Otolaryngology [facility] [address] [place] [address] Services, Scheduling [address] [place] [address] Call Back Allergies Active Allergy Reactions Criticality Noted Date Comments Diphenhydramine 06/12/2023 HALLUCINATIONS. Gabapentin 10/10/2022 Retained fluid Lisinopril Cough 08/09/2019 Pregabalin Other (Please comment) 02/14/2023 Hot all over " I felt like I was on fire inside and out" Morphine Sulfate 07/19/2010 Lowers her blood pressure documented as of this encounter (statuses as of 02/16/2024) Medications Medication Sig Dispensed Refills Start Date End Date Status CALCIUM 600 600 MG PO TABSIndications:in pm Take by mouth. Active OCUVITE EXTRA PO TABS once daily 06/15/2013 Active ECOTRIN LOW STRENGTH 81 MG PO TBEC One pill by mouth once a day 100 Tab 5 12/14/2013 Active Cyanocobalamin 1000 MCG Oral TabletIndications: at lunchtime Take 1 Tablet by mouth in [...] 2 at bedtime 180 Tablet 04/02/2023 Active tiZANidine HCl 2 MG Oral Tablet (Zanaflex) Take 1-2 tablets by mouth at night as needed for pain or muscle spasm and tightness 180 Tablet 3 06/02/2023 Active Lysine 500 MG Oral Tablet Take by mouth. Active valACYclovir HCl 500 MG Oral Tablet (Valtrex)Indicatio ns:Oral ulcer TAKE 1 TABLET BY MOUTH IN THE MORNING. FOR TRANSMISSION REDUCTION. 90 Tablet 1 07/22/2023 Active Cyproheptadine HCl 4 MG Oral Tablet (Periactin)Indicat ions:in evening 1 tablet daily 90 Tablet 5 07/28/2023 Active Levothyroxine Sodium 88 MCG Oral Tablet (Levoxyl)Indicatio ns:Hypothyroidism TAKE 1 TABLET BY MOUTH EVERY MORNING ON AN EMPTY STOMACH 90 Tablet 3 08/06/2023 Active Atenolol 25 MG Oral Tablet (Tenormin) TAKE 1 TABLET IN THE MORNING STRENGTH: 25 MG 90 Tablet 1 09/03/2023 Active Naltrexone HCl 50 MG Oral Tablet (Revia) Take 1 Tablet by mouth in the morning. 30 Tablet 5 10/08/2023 Active busPIRone HCl 10 MG Oral Tablet (Buspar)Indication s:Anxiety state,Adjustment disorder with depressed mood TAKE 1 TABLET BY MOUTH IN THE MORNING, 1 AT NOON AND 1 BEFORE BEDTIME 20 Tablet 11/12/2023 Active documented as of this encounter (statuses as of 02/16/2024) Active Problems Problem Noted Date Diagnosed Date [...] as of this encounter (statuses as of 02/16/2024) Resolved Problems Problem Noted Date Diagnosed Date [...] as of this encounter (statuses as of 02/16/2024) Immunizations Name Administration Dates Next Due COVID-19 [...] encounter Miscellaneous Notes * Telephone Encounter - Crystal Schneider LPN - 11/17/2023 11:41 AM EST Script sent * Telephone Encounter - Priti Harp OSA - 11/17/2023 11:38 AM EST Pt states that Dr. Myrick [facility] [place] [facility] but she has not heard anything from them. Please advise or call pt. documented in this encounter Plan of Treatment Upcoming Encounters Date Type Department Care Team (Late st Contact Info) Description 02/18/2024 10:30 AM EDT Telemedicine Pharmacy, [facility] [address] [facility] [place] [address] [facility] [place] [address] 03/03/2024 3:00 PM EDT Office Visit Cosmetic Surgery & Aesthetics [facility] [address] [place] [address] Nikky Trinidad MD [address] [place] [address] 03/24/2024 8:30 AM EDT Office Visit Rheumatology [address] [place] [address] Lance Castanon CRNP [address] [place] [address] [place] [address] 04/20/2024 11:25 AM EDT Office Visit Interventional Pain Center, [facility] [address] [place] [address] Natan Collins DO [address] [place] [phone] 06/28/2024 9:30 AM EDT Office Visit [address] [place] [phone] Uma Mark, DO [address] [place] [address] Scheduled Procedures Name Priority Associated Diagnoses Date/Ti me COLONOSCOPY FLEXIBLE PROXIMAL DIAGNOSTIC Recall History of colon polyps Health Maintenance Due Date Last Done Comments Cologuard 1996 Fecal Occult Blood Test 1996 Sigmoidoscopy 1996 COVID-19 Vaccine (2022- season) 2023 08/28/2023, 06/12/2021, 11/23/2020, Additional history [...] Documents on File Type Date Recorded Patient Steel Layout Worker Expl anation Power of Cleaner Laboratory Equipment 08/28/2016 POWER OF A TTORNEY POWER OF PARTS SALVAGER INFO Care Teams Retail Advertising Account Executive Relationship Specialty Start Date End Date Uma Mark DO [address] [place] [address] PCP - General Family Medicine 12/20/22 documented as of this encounter
--- OUTSIDE RECORDS SUMMARY | 2024-02-26 08:03 | External Medical Summary | Summary of Care ---
Author Name Unknown Organization [facility] Address [address] [facility] [address] Phone [phone] Care Team Providers Care Clothing Sorter Name Role Phone Otonieljose Umahallie Stanford DO Primary Care Provider [phone] Reason for Visit * Reason Onset Date Comments Med Request 02/18/2024 Encounter Details Date Type Department Care Team (Late st Contact Info) Description 02/18/2024 Telephone Pharmacy, [facility] [address] [facility] [place] [address] [facility] [address] [place] [address] Med Request Allergies Active Allergy Reactions Criticality [...] feet 05/30/2023 Food insecurity 03/31/2023 Overview: Per [facility] Protocol ILD (interstitial lung disease) 04/12/2021 [...] Miscellaneous Notes * Telephone Encounter - Anaya Hinojosa, [facility] - 02/18/2024 2:13 PM EDT Agreed [...] options I would recommend. Thank you, Anaya Hinojosa, Pharm D, BCACP Clinical Pharmacist 02/18/2024, 2:13 PM * Telephone Encounter - Uma Mark DO - 02/18/2024 2:07 PM EDT I feel given her age and other medical problems a chronic narcotic would not be ideal for her. * Telephone Encounter - Anaya Hinojosa [facility] - 02/18/2024 10:50 AM EDT Romulo, Patient seen in [facility] Pain today. Recommending start of low dose oxycodone, prescription pended for your approval. Thank you, Anaya Hinojosa, Pharm D, BCACP Clinical Pharmacist 02/18/2024, 10:51 AM documented in this encounter Plan of Treatment Upcoming Encounters Date Type Department Care Team (Late st Contact Info) Description 03/03/2024 3:00 PM EDT Office Visit Cosmetic Surgery & Aesthetics [facility] [address] [place] [address] Nikky Trinidad MD 16 [place] [address] 03/24/2024 8:30 AM EDT Office Visit Rheumatology [place] [id number] [facility] [place] [address] Lance Castanon CRNP [facility] [place] [address] 03/31/2024 10:30 AM EDT Telemedicine Pharmacy, [facility] 132 [facility] [place] [address] [facility] [place] [address] 04/20/2024 11:25 AM EDT Office Visit Interventional Pain Center, [facility] [address] [place] [address] Natan Collins, DO [address] [place] [address] 06/28/2024 9:30 AM EDT Office Visit [facility] [address] [facility] [place] [phone] Uma Mark DO [address] [facility] [place] [address] Scheduled Procedures Name Priority Associated Diagnoses Date/Ti me COLONOSCOPY FLEXIBLE PROXIMAL DIAGNOSTIC Recall History of colon polyps Health Maintenance Due Date Last Done Comments Cologuard 1996 Fecal Occult Blood Test 1996 Sigmoidoscopy 1996 COVID-19 Vaccine ( season) 2023 08/28/2023, 06/12/2021, 11/23/2020, Additional history exists Mammogram 04/18/2024 04/18/2023, 03/23, 04/15/2022, Additional history exists DXA Scan 10/28/2024 10/28/2017, 0 09/2009, 10/23/2009 GFR 12/23/2024 12/24/2023, 02/2024, 10/26/2023, [...] Documents on File Type Date Recorded Patient Sap Integration Architect Expl anation Power of Prop Drawer 08/28/2016 POWER OF A TTORNEY POWER OF NURSE ORTHOPEDIC INFO Care Teams Clothing Sorter Relationship Specialty Start Date End Date Uma Mark DO [address] [place] [facility] [place] [address] PCP - General Family Medicine 12/20/22 documented as of this encounter
--- OUTSIDE RECORDS SUMMARY | 2024-02-26 08:04 | External Medical Summary | Summary of Care ---
Author Name Unknown Organization [facility] Address [address] [facility] [address] Phone [phone] Care Team Providers Care Shingle Packer Name Role Phone Uma Mark DO Primary Care Provider [phone] Reason for Visit * Reason Onset Date Comments Appointment 11/07/2023 Encounter Details Date Type Department Care Team (Late st Contact Info) Description 11/07/2023 Telephone Interventional Pain Center, [facility] [address] [place] [address] Natan Collins DO [address] [place] [phone] Appointment Allergies Active Allergy Reactions Criticality Noted Date Comments Diphenhydramine 06/12/2023 HALLUCINATIONS. Gabapentin 10/10/2022 Retained fluid Lisinopril Cough 08/09/2019 Pregabalin Other (Please comment) 02/14/2023 Hot all over " I felt like I was on fire inside and out" Morphine Sulfate 07/19/2010 Lowers her blood pressure documented as of this encounter (statuses as of 02/06/2024) Medications Medication Sig Dispensed Refills Start Date [...] MG Oral Capsule (Amoxil) 0 05/31/2021 Active Ferrous Sulfate 325 (65 Fe) MG [...] at bedtime 180 Tablet 0 04/02/2023 Active tiZANidine HCl 2 MG Oral Tablet (Zanaflex) Take 1-2 tablets by mouth at night as needed for pain or muscle spasm and tightness 180 Tablet 3 06/02/2023 Active Lysine 500 MG Oral Tablet Take by mouth. 0 Active valACYclovir HCl 500 MG Oral Tablet [...] the morning. 30 Tablet 5 10/08/2023 Active documented as of this encounter (statuses as of 02/06/2024) Active Problems Problem Noted Date Diagnosed Date [...] as of this encounter (statuses as of 02/06/2024) Resolved Problems Problem Noted Date Diagnosed Date [...] as of this encounter (statuses as of 02/06/2024) Immunizations Name Administration Dates Next Due COVID-19 [...] encounter Miscellaneous Notes * Telephone Encounter - Karly Salas OSA - 11/07/2023 9:30 AM EST Patient calling requesting sooner appointment, she is scheduled for January 14, [address] Collins. She is having a lot of pain, please call patient and advise documented in this encounter Plan of Treatment Upcoming Encounters Date Type Department Care Team (Late st Contact Info) Description 02/12/2024 2:00 PM EDT Scheduled Telephone Interventional Pain Center, [address] [place] [address] [place] Nurse Phone Call Interventional Pain [address] [place] [address] 02/18/2024 10:30 AM EDT Telemedicine Pharmacy, [address] [place] [address] [place] [facility] [address] [address] 03/03/2024 3:00 PM EDT Office Visit Cosmetic Surgery & Aesthetics [facility] 16 [place] [address] Nikky Trinidad MD 16 [place] [address] 03/24/2024 8:30 AM EDT Office Visit Rheumatology [place] [address] [facility] [place] [address] Lance Castanon CRNP [facility] [place] [address] 06/28/2024 9:30 AM EDT Office Visit [facility] [address] [place] [phone] Uma Mark DO [address] [place] [address] Scheduled Procedures Name Priority Associated Diagnoses Date/Ti me COLONOSCOPY FLEXIBLE PROXIMAL DIAGNOSTIC Recall History of colon polyps Health Maintenance Due Date Last Done Comments Cologuard 1996 Fecal Occult Blood Test 1996 Sigmoidoscopy 1996 Mammogram 04/18/2024 04/18/2023, 03/23, 04/15/2022, Additional history [...] Documents on File Type Date Recorded Patient Cyber Legal Advisor Expl anation Power of Lead Network Engineer 08/28/2016 POWER OF A TTORNEY POWER OF THERAPIST RRT INFO Care Teams Shingle Packer Relationship Specialty Start Date End Date Uma Mark DO [address] [place] [address] PCP - General Family Medicine 12/20/22 documented as of this encounter
--- OUTSIDE RECORDS SUMMARY | 2024-02-26 08:04 | External Medical Summary | Summary of Care ---
Author Name Unknown Organization [facility] Address [address] [facility] [address] Phone [phone] Care Team Providers Care Transfer And Pumphouse Operator Name Role Phone Uma Mark DO Primary Care Provider [phone] Reason for Visit * Reason Onset Date Comments Nurse Telephone Follow Up 02/12/2024 Bilate ral SI joint on 01/14/24 Encounter Details Date Type Department Care Team (Late st Contact Info) Description 02/12/2024 2:00 PM EDT Scheduled Telephone Interventional Pain Center, [facility] [address] [place] [address] [place], Nurse Phone Call Interventional Pain [facility] [address] [place] [address] Allergies Active Allergy Reactions Criticality Noted Date Comments Diphenhydramine 06/12/2023 HALLUCINATIONS. Gabapentin 10/10/2022 Retained fluid Lisinopril Cough 08/09/2019 Pregabalin Other (Please comment) 02/14/2023 Hot all over " I felt like I was on fire inside and out" Morphine Sulfate 07/19/2010 Lowers her blood pressure documented as of this encounter (statuses as of 02/12/2024) Medications Medication Sig Dispensed Refills Start Date [...] THE MORNING 90 Tablet 1 12/17/2023 Active traMADol HCl 50 MG Oral Tablet (Ultram) Take 1 Tablet by mouth. 12/16/2023 Active Omeprazole 20 MG Oral Capsule Delayed [...] A DAY 100 g 1 01/05/2024 Active DULoxetine HCl 60 MG Oral Capsule Delayed Release Particles (Cymbalta)Indication s:Primary osteoarthritis of both hands,Primary osteoarthritis of both knees,Primary osteoarthritis of hip, unspecified laterality TAKE 1 CAPSULE BY MOUTH EVERY DAY IN THE MORNING 30 Capsule 5 01/19/2024 Active Losartan Potassium 50 MG Oral Tablet (Cozaar)Indications: HTN, goal below 140/90 TAKE 1 TABLET BY MOUTH IN THE MORNING AND BEFORE BEDTIME 180 Tablet 3 01/29/2024 Active Ferrous Sulfate 325 (65 Fe) MG Oral Tablet (Feosol) ONE PILL EVERY OTHER DAY 45 Tablet 1 02/09/2024 Active documented as of this encounter (statuses as of 02/12/2024) Active Problems Problem Noted Date Diagnosed Date [...] as of this encounter (statuses as of 02/12/2024) Resolved Problems Problem Noted Date Diagnosed Date [...] as of this encounter (statuses as of 02/12/2024) Immunizations Name Administration Dates Next Due COVID-19 [...] encounter Miscellaneous Notes * Telephone Encounter - Lori Huston LPN - 02/12/2024 1:19 PM EDT Patient had bilateral SI joint injections on 01/14/24. Patient reports 50% reduction in pain for approximately 1 week. Pain is currently at 0% reduction. Patient current pain level is 7/10. Patient reports that most of her pain starts in her low back with constant pressure and achy. Pain radiates into the tailbone area and into bilateral hips and down into the thigh. Does not go to the knee. Pain is a similar pressure and achy. Patient stated that she does have numbness and neuropathyin the lower legs. Please advise when patient should be scheduled to follow up and reassess pain. Patient will need called with appointment once provider advises when okay to follow up. documented in this encounter Plan of Treatment Upcoming Encounters Date Type Department Care Team (Late st Contact Info) Description 02/18/2024 10:30 AM EDT Telemedicine Pharmacy, [facility] [address] [facility] [place] [address] [facility] [address] [place] [address] 03/03/2024 3:00 PM EDT Office Visit Cosmetic Surgery & Aesthetics [address] [address] Nikky Trinidad MD [address] [place] [address] 03/24/2024 8:30 AM EDT Office Visit Rheumatology [place] [address] [facility] [place] [address] Lance Castanon CRNP [address] [facility] [place] [address] 06/28/2024 9:30 AM EDT Office Visit [address] [phone] Uma Mark, DO [address] [place] [address] Scheduled Procedures Name Priority Associated Diagnoses Date/Ti [...] Documents on File Type Date Recorded Patient Billboard Poster Helper Expl anation Power of Powder And Primer Canning Leader 08/28/2016 POWER OF A TTORNEY POWER OF POWER AND RECOVERY SUPERINTENDENT INFO Care Teams Transfer And Pumphouse Operator Relationship Specialty Start Date End Date Uma Mark DO [address] [place] [id number] PCP - General Family Medicine 12/20/22 documented as of this encounter
--- OUTSIDE RECORDS SUMMARY | 2024-02-26 08:04 | External Medical Summary | Summary of Care ---
Author Name Unknown Organization [facility] Address [address] [place] [address] Phone [phone] Care Team Providers Care Hand Heel Seat Fitter Name Role Phone Destiny Jacobsen DO Primary Care Provider [phone] Reason for Visit * Reason Comments eRx-Medication Refill Encounter Details Date Type Department Care Team (Late st Contact Info) Description 02/07/2024 Refill [facility] [address] [place] [address] Destiny Jacobsen DO [address] [place] [address] Allergies Active Allergy Reactions Criticality Noted Date Comments Diphenhydramine 06/12/2023 HALLUCINATIONS. Gabapentin 10/10/2022 Retained fluid Lisinopril Cough 08/09/2019 Pregabalin Other (Please comment) 02/14/2023 Hot all over " I felt like I was on fire inside and out" Morphine Sulfate 07/19/2010 Lowers her blood pressure documented as of this encounter (statuses as of 02/09/2024) Medications Medication Sig Dispensed Refills Start Date End Date Status CALCIUM 600 600 MG PO TABSIndications:in pm Take by mouth. Active OCUVITE EXTRA PO TABS once daily 3 Active ECOTRIN LOW STRENGTH 81 MG PO TBEC One pill by mouth once a day 100 Tab 5 4 Active Cyanocobalamin 1000 MCG Oral TabletIndications:a t [...] 2 at bedtime 180 Tablet 3 Active tiZANidine HCl 2 MG Oral Tablet (Zanaflex) Take 1-2 tablets by mouth at night as needed for pain or muscle spasm and tightness 180 Tablet 3 3 Active Lysine 500 MG Oral Tablet [...] 25 MG 90 Tablet 1 3 Active Naltrexone HCl 50 MG Oral Tablet (Revia) Take 1 Tablet by mouth in the morning. 30 Tablet 5 4 Active busPIRone HCl 10 MG Oral Tablet (Buspar)Indications :Anxiety state,Adjustment disorder with depressed mood TAKE 1 TABLET BY MOUTH IN THE MORNING, 1 AT NOON AND 1 BEFORE BEDTIME 20 Tablet 4 Active Rosuvastatin Calcium 5 MG Oral Tablet (Crestor)Indication s:Hyperlipidemia TAKE 1 TABLET BY MOUTH EVERY DAY IN THE MORNING 90 Tablet 1 4 Active Meclizine HCl 12.5 MG Oral Tablet (Antivert)Indicatio ns:Vertigo TAKE 1 TABLET BY MOUTH THREE TIMES A DAY NEEDED FOR DIZZINESS 45 Tablet 1 4 Active Loratadine 10 MG Oral Tablet (Claritin)Indicatio ns:Other chronic sinusitis TAKE 1 TABLET BY MOUTH EVERY DAY IN THE MORNING 90 Tablet 1 4 Active Folic Acid 1 MG Oral Tablet TAKE 1 TABLET BY MOUTH EVERY DAY IN THE MORNING 90 Tablet 1 4 Active traMADol HCl 50 MG Oral Tablet (Ultram) Take 1 Tablet by mouth. 4 Active Omeprazole 20 MG Oral Capsule Delayed Release (PriLOSEC)Indicatio ns:Gastroesophageal reflux disease without esophagitis TAKE 1 CAPSULE IN THE MORNING AND 1 CAPSULE BEFORE BEDTIME (DOSE INCREASE) 180 Capsule 4 Active Ondansetron HCl 4 MG Oral Tablet (Zofran)Indications :Nausea Take 1 Tablet by mouth every 6 [...] A DAY 100 g 1 4 Active DULoxetine HCl 60 MG Oral Capsule Delayed Release Particles (Cymbalta)Indicatio ns:Primary osteoarthritis of both hands,Primary osteoarthritis of both knees,Primary osteoarthritis of hip, unspecified laterality TAKE 1 CAPSULE BY MOUTH EVERY DAY IN THE MORNING 30 Capsule 5 4 Active Losartan Potassium 50 MG Oral Tablet (Cozaar)Indications :HTN, goal below 140/90 TAKE 1 TABLET BY MOUTH IN THE MORNING AND BEFORE BEDTIME 180 Tablet 3 4 Active Ferrous Sulfate 325 (65 Fe) MG Oral Tablet (Feosol) ONE PILL EVERY OTHER DAY 45 Tablet 1 4 Active Ferrous Sulfate 325 (65 Fe) MG Oral Tablet (Feosol) One pill every other day 90 Tablet 1 3 024 Discontinued documented as of this encounter (statuses as of 02/09/2024) Active Problems Problem Noted Date Diagnosed Date [...] as of this encounter (statuses as of 02/09/2024) Resolved Problems Problem Noted Date Diagnosed Date [...] as of this encounter (statuses as of 02/09/2024) Immunizations Name Administration Dates Next Due COVID-19 [...] encounter Miscellaneous Notes * Telephone Encounter - Destiny Jacobsen DO - 02/09/2024 1:35 PM EDTSigned Prescriptions: Disp Refills Ferrous Sulfate 325 (65 Fe) MG Oral Tablet*45 Tab*1 Sig: ONE PILL EVERY OTHER DAY Authorizing Provider: DESTINY JACOBSEN * Telephone Encounter - Cynthia Sprague [facility] - 02/09/2024 9:45 AM EDTPending Prescriptions: Disp Refills Ferrous Sulfate 325 (65 Fe) MG Oral Tablet*45 Tab*1 Sig: ONE PILL EVERY OTHER DAY * Telephone Encounter - Cynthia Sprague [facility] - 02/09/2024 9:43 AM EDT Unable to authorize medication refills for pended medication(s) at this time. Part of the protocol criteria used for refill authorization was not satisfied. Patient needs IRON STUDIES on file in the past year. Please approve if appropriate. Thank you, Cynthia Sprague, PharmD Clinical Pharmacist [facility] 02/09/24 9:44 AM [phone] documented in this encounter Plan of Treatment Upcoming Encounters Date Type Department Care Team (Late st Contact Info) Description 02/12/2024 2:00 PM EDT Scheduled Telephone Interventional Pain Center, [facility] 132 [facility] [place] [address] [place] Nurse Phone Call Interventional Pain [facility] Narciso Mendozagaryanne [place] [address] 02/18/2024 10:30 AM EDT Telemedicine Pharmacy, [facility] [address] [facility] [place] [address] [place] [facility] [address] [address] 03/03/2024 3:00 PM EDT Office Visit Cosmetic Surgery & Aesthetics [facility] 16 [place] [address] Nikky Trinidad MD [address] [place] [address] 03/24/2024 8:30 AM EDT Office Visit Rheumatology [address] [place] [address] Lance Castanon CRNP [address] [place] [address] [place] [address] 06/28/2024 9:30 AM EDT Office Visit [facility] [address] [place] [phone] Destiny Jacobsen DO [address] [place] [address] Scheduled Procedures Name Priority Associated Diagnoses Date/Ti [...] Documents on File Type Date Recorded Patient Resort Host Expl anation Power of Paper Pattern Folder 08/28/2016 POWER OF A TTORNEY POWER OF CHIEF CR[facility] Care Teams Hand Heel Seat Fitter Relationship Specialty Start Date End Date Destiny Jacobsen DO [address] [place] [address] PCP - General Family Medicine 12/20/22 documented as of this encounter
--- OUTSIDE RECORDS SUMMARY | 2024-02-26 08:04 | External Medical Summary | Summary of Care ---
Author Name Unknown Organization [facility] Address [address] [place] [address] Phone [phone] Care Team Providers Care Clothing Consultant Name Role Phone Destiny Jacobsen DO Primary Care Provider Reason for Visit * Reason Comments eRx-Medication Refill Encounter Details Date Type Department Care Team (Late st Contact Info) Description 01/28/[address] [facility] [address] [place] [address] Destiny Jacobsen DO [address] [place], [place] [id number] HTN, goal below 140/90 Allergies Active Allergy Reactions Criticality Noted Date Comments Diphenhydramine 06/12/2023 HALLUCINATIONS. Gabapentin 10/10/2022 Retained fluid Lisinopril Cough 08/09/2019 Pregabalin Other (Please comment) 02/14/2023 Hot all over " I felt like I was on fire inside and out" Morphine Sulfate 07/19/2010 Lowers her blood pressure documented as of this encounter (statuses as of 01/29/2024) Medications Medication Sig Dispensed Refills Start Date End Date Status CALCIUM 600 600 MG PO TABSIndications:in pm Take by mouth. 0 Active OCUVITE EXTRA PO TABS once daily 0 3 Active ECOTRIN LOW STRENGTH 81 MG PO TBEC One pill by mouth once a day 100 Tab 5 4 Active Cyanocobalamin 1000 MCG Oral TabletIndications:a t lunchtime Take 1 Tablet by mouth in the morning. 0 6 Active Magnesium 250 MG Tablet Take 1 Tablet by mouth in the morning. 0 Active Cholecalciferol (VITAMIN D-3) 5000 units Tablet Take 1 Tablet by mouth in the morning. 0 Active Docusate Sodium 100 MG Oral Capsule Take 1 Capsule by mouth in the morning and 1 Capsule before bedtime. 0 Active Amoxicillin 500 MG Oral Capsule (Amoxil) 0 1 Active Ferrous Sulfate 325 (65 Fe) MG Oral Tablet (Feosol) One pill every other day 90 Tablet 1 3 Active buPROPion HCl ER (SR) 150 MG Oral Tablet Extended Release 12 Hour (Wellbutrin SR) Take 1 Tablet by mouth in the morning. In the morning.. 30 Tablet 1 3 Active traZODone HCl 100 MG Oral Tablet (Desyrel) Take 1 Tablet by mouth at bedtime. 2 at bedtime 180 Tablet 0 3 Active tiZANidine HCl 2 MG Oral [...] AND 1 BEFORE BEDTIME 20 Tablet 0 4 Active Rosuvastatin Calcium 5 MG Oral [...] Tablet (Ultram) Take 1 Tablet by mouth. 0 4 Active Omeprazole 20 MG Oral Capsule Delayed Release (PriLOSEC)Indicatio ns:Gastroesophageal reflux disease without esophagitis TAKE 1 CAPSULE IN THE MORNING AND 1 CAPSULE BEFORE BEDTIME (DOSE INCREASE) 180 Capsule 0 4 Active Ondansetron HCl 4 MG Oral [...] BEFORE BEDTIME 180 Tablet 3 4 Active Losartan Potassium 50 MG Oral Tablet (Cozaar)Indications :HTN, goal below 140/90 Take 1 Tablet by mouth in the morning and 1 Tablet before bedtime. 180 Tablet 1 3 024 Discontinued documented as of this encounter (statuses as of 01/29/2024) Active Problems Problem Noted Date Diagnosed Date [...] as of this encounter (statuses as of 01/29/2024) Resolved Problems Problem Noted Date Diagnosed Date [...] as of this encounter (statuses as of 01/29/2024) Immunizations Name Administration Dates Next Due COVID-19 [...] encounter Miscellaneous Notes * Telephone Encounter - Petra Ross [facility] - 01/29/2024 9:00 AM EDTSigned Prescriptions: Disp Refills Losartan Potassium 50 MG Oral Tablet (Coza*180 Ta*3 Sig: TAKE 1 TABLET BY MOUTH IN THE MORNING AND BEFORE BEDTIMEAuthorizing Provider: DESTINY JACOBSEN User: PETRA ROSS documented in this encounter Plan of Treatment Upcoming Encounters Date Type Department Care Team (Late st Contact Info) Description 02/12/2024 2:00 PM EDT Scheduled Telephone Interventional Pain Center, [facility] [address] [place] [address] [place] Nurse Phone Call Interventional Pain [facility] 132 [facility] [place] [address] 02/18/2024 10:30 AM EDT Telemedicine Pharmacy, [facility] [address] [place] [address] [place] [facility] [address] [place] [address] 03/03/2024 3:00 PM EDT Office Visit Cosmetic Surgery & Aesthetics [facility] [address] [place] [address] Nikky Trinidad MD [address] [place] [address] 03/24/2024 8:30 AM EDT Office Visit Rheumatology [facility] [address] [facility] [place] [address] Lance Castanon CRNP [address] [facility] [place] [address] 06/28/2024 9:30 AM EDT Office Visit [facility] [address] [place] [phone] Destiny Jacobsen DO [address] [place] [address] Scheduled Procedures Name Priority Associated Diagnoses Date/Ti [...] as of this encounter Visit Diagnoses Diagnosis HTN, goal below 140/90 Unspecified essential hypertension documented in this encounter Advance Directives Documents on File Type Date Recorded Patient Galley Worker Expl anation Power of Criminal Profiler 08/28/2016 POWER OF A TTORNEY POWER OF SERGEANT MISSILE CREWMAN INFO Care Teams Clothing Consultant Relationship Specialty Start Date End Date Destiny Jacobsen DO [address] [place] [facility] [place] [address] PCP - General Family Medicine 12/20/22 documented as of this encounter
--- OUTSIDE RECORDS SUMMARY | 2024-02-26 08:04 | External Medical Summary | Summary of Care ---
Author Name Unknown Organization [facility] Address [address] [place] [address] Phone [phone] Care Team Providers Care Orchestrator Name Role Phone Steveschuyler Uma Hien ART Primary Care Provider Encounter Details Date Type Department Care Team (Late st Contact Info) Description 10/29/2023 Telephone Access Center, [facility] [address] [facility] *DO NOT REMOVE THIS DEPARTMENT* [place] [address] Services, Scheduling [address] [place] [address] Allergies Active Allergy Reactions Criticality Noted Date Comments Diphenhydramine 06/12/2023 HALLUCINATIONS. Gabapentin 10/10/2022 Retained fluid Lisinopril Cough 08/09/2019 Pregabalin Other (Please comment) 02/14/2023 Hot all over " I felt like I was on fire inside and out" Morphine Sulfate 07/19/2010 Lowers her blood pressure documented as of this encounter (statuses as of 01/28/2024) Medications Medication Sig Dispensed Refills Start Date [...] Active Losartan Potassium 50 MG Oral Tablet (Cozaar)Indication s:HTN, goal below 140/90 Take 1 Tablet by [...] as of this encounter (statuses as of 01/28/2024) Active Problems Problem Noted Date Diagnosed Date [...] as of this encounter (statuses as of 01/28/2024) Resolved Problems Problem Noted Date Diagnosed Date [...] as of this encounter (statuses as of 01/28/2024) Immunizations Name Administration Dates Next Due COVID-19 [...] encounter Miscellaneous Notes * Telephone Encounter - Lina Sam, OLAF - 10/29/2023 9:22 AM EST Pt says her sciatica has been very painful for the last 2 weeks and she wants to know if she can come in for an injection freddy Oliva documented in this encounter Plan of Treatment Upcoming Encounters Date Type Department Care Team (Late st Contact Info) Description 02/12/2024 2:00 PM EDT Scheduled Telephone Interventional Pain [facility], [facility] [address] [place] [address] [place] Nurse Phone Call Interventional Pain [address] [place] [address] 02/18/2024 10:30 AM EDT Telemedicine Pharmacy, [address] [place] [address] [place] [facility] [address] [place] [address] 03/03/2024 3:00 PM EDT Office Visit Cosmetic Surgery & Aesthetics [facility] [address] [place] [address] Nikky Trinidad MD [address] [place] [address] 03/24/2024 8:30 AM EDT Office Visit Rheumatology [place] [id number] [facility] [place] [address] Lance Castanon CRNP [facility] [place] [address] 06/28/2024 9:30 AM EDT Office Visit Family [address] [id number] Uma Mark DO [address] [place] [address] Scheduled Procedures Name Priority Associated Diagnoses Date/Ti [...] Documents on File Type Date Recorded Patient Wellness Consultant Expl anation Power of Core Worker 08/28/2016 POWER OF A TTORNEY POWER OF MOBILE UI DEVELOPER [facility] Care Teams Orchestrator Relationship Specialty Start Date End Date Uma Mark DO [address] [facility] [place] [address] PCP - General Family Medicine 12/20/22 documented as of this encounter
--- NOTE | 2024-02-26 08:39 | Orthopedic Consultation ---
Date of Service February 26, 2024 Assessment & Plan (1) Laceration of left knee: I examined her and talked about diagnosis and treatment options with her at bedside. With regards to the right knee will keep her in the knee immobilizer. The fracture should heal well on its own. No surgical intervention is necessa ry. With regards to her left knee I would like to place her in a knee immobilizer. With the fracture of the tibial tuberosity on unable to operate and expose the knee if I were to do any washout procedures. However, it still unclear if the laceration even went into the knee joint itself. Given that, I would rather treat this with a knee immobilizer and antibiotics to hopefully prevent any infection in the knee joint. She can have a regular diet. We will continue to follow this closely. It will be 2 to 3 months before she is weightbearing on either knee. (2) Fracture of proximal end of left tibia: (3) Fracture of proximal end of right tibia: History of Present Illness Reason for Consultation: Bilateral periprosthetic tibial fractures. Requesting Physician: . Attending Physician: Marie Montalvo MD Kalee is a pleasant 73-year-old female who underwent a right knee replacement about 20 years ago. She is doing fairly well with that. She also underwent a revision left knee replacement about 6 months ago. She was doing very well with both of her knees until she fell yesterday. She fell on her flexed knees. She was having severe right knee pain and foot pain. She was having moderate left knee pain but there was a large anterior laceration on her left knee. She came to the emergency room. Radiographs demonstrated a nondisplaced right periprosthetic proximal tibial fracture and a left tibial tubercle fracture. The wound was questionable whether it went to the joint or not. There appeared to be some joint fluid that came out of the wound, however, there was no visible path to the knee joint. The wound was washed out and closed in the emergency room. She was then placed in knee immobilizers. She was then admitted to the hospitalist service. Orthopedics was consulted to evaluate and treat.. Allergies Allergy/AdvReac Type Severity Reaction Status Date / Time diphenhydramine Allergy Intermediate Hallucinati Verified 02/25/24 17:04 [From Benadryl] ng morphine AdvReac Severe Low BP Verified 02/25/24 17:04 gabapentin AdvReac Intermediate swelling Verified 02/25/24 17:04 of lower legs lisinopril AdvReac Intermediate Cough Verified 02/25/24 17:04 pregabalin [From Lyrica] AdvReac Intermediate sweating/ho Verified 02/25/24 17:04 t Home Medications Medication Instructions Recorded Confirmed Type bupropion HCl 150 mg 24 hr tablet, 150 mg PO QAM 07/11/19 02/25/24 History extended release (Wellbutrin XL) buspirone 10 mg tablet 10 mg PO TID 07/11/19 02/25/24 History calcium carbonate (Calcium 600) 600 mg PO BID 07/11/19 02/25/24 History cholecalciferol (vitamin D3) 125 5,000 unit PO QAM 07/11/19 02/25/24 History mcg (5,000 unit) tablet (Vitamin D3) cyproheptadine 4 mg tablet 8 mg PO HS 07/11/19 02/25/24 History docusate sodium 100 mg capsule 100 mg PO AMHS 07/11/19 02/25/24 History ferrous sulfate 325 mg (65 mg 325 mg PO Q2D 07/11/19 02/25/24 History iron) tablet folic acid 1 mg tablet 1 mg PO QAM 07/11/19 02/25/24 History magnesium 250 mg tablet 250 mg PO QAM 07/11/19 02/25/24 History omeprazole 20 mg capsule,delayed 20 mg PO AMHS 07/11/19 02/25/24 History release rosuvastatin 5 mg tablet (Crestor) 5 mg PO HS 07/11/19 02/25/24 History trazodone 100 mg tablet 150 mg PO HS 06/16/21 02/25/24 History atenolol 25 mg tablet 25 mg PO QAM 08/19/22 02/25/24 History levothyroxine 88 mcg tablet 88 mcg PO DAILYBB 08/19/22 02/25/24 History losartan 50 mg tablet 50 mg PO BID 08/19/22 02/25/24 History loratadine 10 mg tablet 10 mg PO DAILY PRN Nasal Congestion 08/22/22 02/25/24 History amino acids-multivit with iron and 1 tab PO HS 01/22/23 02/25/24 History minerals tablet meclizine 12.5 mg tablet 12.5 mg PO TID PRN Dizziness 01/22/23 02/25/24 History ondansetron HCl 4 mg tablet 4 mg PO Q6 PRN Nausea 01/22/23 02/25/24 History tizanidine 2 mg tablet 2 - 4 mg PO HS PRN Pain 01/22/23 02/25/24 History valacyclovir 500 mg tablet 500 mg PO QAM 01/22/23 02/25/24 History azathioprine 50 mg tablet 50 mg PO QAM 11/25/23 02/25/24 History aspirin 81 mg tablet,delayed 81 mg PO BID 42 days #0 tabs 11/29/23 02/25/24 Rx release azelastine 137 mcg (0.1 %) nasal 1 spray intranasal BID 02/25/24 02/25/24 Hist ory spray aerosol cyanocobalamin (vitamin B-12) 5,000 mcg sublingual DAILY 02/25/24 02/25/24 History 5,000 mcg sublingual tablet (Vitamin B-12) pramipexole 0.25 mg tablet 0.25 mg PO TID 02/25/24 02/25/24 History vit C 50 mg-E 15 unit-zinc cit 4.5 1 tab PO DAILY 02/25/24 02/25/24 History mg-lutein 2.5 mg-zeaxan chew tablet ([facility]) vitamin B complex 1 tab PO DAILY 02/25/24 02/25/24 History Past Med/Surg History Problem List Laceration of left knee (Acute) Fracture of proximal end of left tibia (Acute) Fall (Acute) Fracture of proximal end of right tibia (Acute) Right tibial fracture Avulsion fracture of lateral condyle of left tibia 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 Encounter for pre-operative examination Hallucinations, visual (Acute) Acute confusion (Acute) AMS (altered mental status) Fall Polypharmacy (Acute) Status post left knee replacement (~09/2022) Arthritis Myopathy (Acute) Osteoarthritis (Chronic) Chronic pain Hyponatremia (Acute) Hx RLS (restless legs syndrome) Closed fracture of right distal femur 2019 no surgery Anemia (Chronic) HTN (hypertension) (Chronic) controlled, stable per pt Dyslipidemia (Chronic) Hypothyroidism (Chronic) Depression (Chronic) Anxiety (Chronic) Gastroparesis (Chronic) GERD (gastroesophageal reflux disease) (Chronic) controlled symptoms per pt Polymyositis (Chronic) MTX Medical History Seasonal allergies Chronic rhinitis Hiatal hernia h/o of repair in past, and has at present too Neuropathy feet Refusal of blood product d/t orthodox beliefs Elevated hemidiaphragm right Dysphagia worse with meat, happens on occasion Interstitial lung disease Follows with Dr. Eid/[facility] Hx of migraines History of COVID-19 08/2020, loss taste/smell, body aches, sinus issues > resolved (after sinus surgery) none since History of carotid artery disease mild bilateral intracranial ICA stenoses-head MRA 02/2022 Diverticulitis Hx, 2018 Surgical History Hx of cataract extraction Hx of right cataract extraction will see Dr Huff 08/28/23 for F/U H/O hemorrhoidectomy History of tubal ligation Nausea and vomiting after administration of anesthetic agent Years ago, denies needing scop patch History of esophagogastroduodenoscopy (EGD) Hx of colonoscopy Hx of squamous cell carcinoma excision Excision (head) History of back surgery lumbar Family History Other No significant family history Social History Smoking Status: Never smoker Second Hand Exposure: Yes (in past); Do You Dip or Chew Tobacco: No; Hx Alcohol Use: No Hx Substance Use: No Preferred Language: Greenlandic Communication Ability: Effective Hand Sample Maker Required: No Beliefs That Will Affect Care: None Current Living Situation: Alone Current Living Situation Comment: Lives in a mother in law suite Feels Safe at Home: Yes Assistive Devices: Denture - Upper and Glasses Review of Systems All systems reviewed & are unremarkable except as noted in HPI & below. Physical Exam On physical examination of the right knee, she has a knee immobilizer in place. There is a lot of bruising. She is unable to do a straight leg raise. On physical examination of the left knee there is a closed laceration over the anterior aspect of the knee. She is unable to do a straight leg raise. She has bruising and pain in the left knee as well.. Constitutional WD/WN, vitals as above Eyes PERRL, conjunctivae normal, anicteric sclerae ENMT external ear and nose normal, oropharynx normal Neck trachea midline, no thyromegaly Respiratory normal respiratory effort Cardiovascular RRR, no murmur, no edema Gastrointestinal (Abdomen) normal bowel sounds, soft, nontender, no hepatosplenomegaly Psychiatric A+Ox3, euthymic affect Results & Data Results & Data Laboratory Results . Diagnostic Findings X-rays of the right knee show a nondisplaced right periprosthetic proximal tibial fracture with the fracture line right at the tip of the tibial prosthesis X-rays obtained of the left knee show a mildly displaced tibial tubercle fracture.. PG Care Time/CCT Total # of Minutes Spent Total Time Spent with Patient: Total time spent is greater than 50% in coordination of care (as documented) at patient's floor/unit and/or counseling patient: Coding Level of Care Code 55253 IN/OBS CONSULT LVL 4,60M Diagnoses Laceration of left knee S81.012A Encounter type: initial encounter Fracture of proximal end of left tibia S82.102A Encounter type: initial encounter Fracture morphology: unspecified fracture morphology Fracture type: open Fracture of proximal end of right tibia S82.101A Encounter type: initial encounter Fracture morphology: unspecified fracture morphology Fracture type: closed (1) Laceration of left knee Encounter type: initial encounter Qualified Code(s): S81.012A - Laceration without foreign body, left knee, initial encounter (2) Fracture of proximal end of left tibia Encounter type: initial encounter Fracture morphology: unspecified fracture morphology Fracture type: open (3) Fracture of proximal end of right tibia Encounter type: initial encounter Fracture morphology: unspecified fracture morphology Fracture type: closed Qualified Code(s): S82.101A - Unspecified fracture of upper end of right tibia, initial encounter for closed fracture
[2024-02-26] MEDS: ACETAMINOPHEN 500 MG TAB PO SCH (09:09)
--- NOTE | 2024-02-26 09:09 | Hospitalist Progress Note ---
Date of Service February 26, 2024 Assessment & Plan (1) Avulsion fracture of lateral condyle of left tibia: (2) Right tibial fracture: (3) Fall: (4) HTN (hypertension): (5) Dyslipidemia: (6) Depression: (7) GERD (gastroesophageal reflux disease): Plan Ms. Christian is a 73 year old female that presents to the ED after experiencing a mechanical fall on She was walking out of her apartment when both of her knees started making 'snapping' noises and buckled at the same time leading to her falling on both knees. Has had multiple knee replacement in the past; most recently in November on the left knee under the care of Dr. Tanner. Avulsion fracture left condyle left tibia: Right tibial fracture: Status post mechanical fall: Acute R Knee Xray: Nondisplaced acute periprosthetic fracture within the proximal metaphysis of the right tibia which may extend into the lateral tibial plateau. L Knee X-ray: Displaced avulsion fracture along the anterior aspect of the tibial tuberosity. No leukocytosis Left knee washout and closed with total of 15 sutures Orthopedic consulted -- appreciate recs- No plans for surgery at this time. Non weight bearing for 2-3 months. Will need rehab- CM to assist Ampicillin started in the ER for possible preop, also got dose of unasyn IV, will switch to Ancef at this time 02/25 for staph coverage. Scheduled Tylenol and Dilaudid prn pain control Continue Colace for stool softener Xray R ankle negative for acute fx PT/OT nonweight bearing status CAD: Chronic Status post mild bilateral intracranial ICA stenosis Takes baby aspirin; resume 02/25 HTN: Chronic Takes losartan and atenolol; continue Dyslipidemia: Chronic Takes rosuvastatin; continue Depression: Chronic Takes Cymbalta, Wellbutrin, and BuSpar; continue Takes Trazadone at bedtime; continue ILD: Chronic Follows with pulmonary; Dr. Stanton TERRELL Takes azathioprine; continue Goals of care: Mandaeism: Prefers to avoid blood transfusions Open to B12, folate, iron Takes vitamin B12 and folic acid; continue GERD: Chronic Takes omeprazole; continue Disposition: From Home, lives in [facility], will require rehab after hospital stay due to nonweight bearing status for 2-3 mo. Lines: PIV x 1 FEN/GI: Allow HH diet CODE STATUS: DNR/DNI VTE prophylaxis: resume asa 81 mg A total of 50 minutes were spent with greater than 50% of that time face to face with the patient, personally reviewing all current laboratories, imaging studies, past medication reconciliation, outpatient chart review, and discussion with specialists to collaborate care for the patient with attending. Please see attending documentation for corrections and/or additions. Admission and Anticipated Discharge Date Admission Date: February 25, 2024 Supervising Physician Co-Signing Physician Notes Patient seen and examined Reports pain in both knees as well as right ankle Reviewed XR of knees XR of right ankle obtained which did not show any fracture Ortho eval and recs noted NWB LE bilaterally PT/OT/CM for placement Optimize pain control Patient reviewed with Advanced Practitioner Agree with Advanced Practitioner's evaluation, findings and plans and take full responsibility Subjective Pt with significant pain this morning in bilateral knees- she states it is improved with sleep and that she recently had IV dilaudid which helped. Pt notes ortho saw her this morning, no plans for surgery at this time. Will allow her t o have breakfast this morning. Also pain not controlled will add tylenol around the clock along with prn meds. Physical Exam Physical Exam: General: awake, alert, no apparent distress, obese white female Head: Normocephalic, atraumatic ENT: PERRL, EOMI, no pharyngeal exudate, mucous membranes moist Chest: Clear to auscultation, on room air, no adventitious breath sounds Cardiac: Regular rate and rhythm, no murmur, no JVD, normal peripheral pulses, good capillary refill Abdominal: NABS x 4 quadrants, soft, nondistended, nontender to palpation, no rebound or guarding Extremities: R knee elevated, immobilizer in place, Left knee dressing c/d/i. Unable to perform straight leg raise due to pain. Otherwise Normal inspection, no peripheral edema or erythema, calfs nontender to palpation. Can wiggle toes, reports neuropathy with tingling chronically in BLE Psych: Normal mood and affect Neuro: AAO x 3, strength intact bilaterally and rated 4/5, cannot do straight leg raise with either leg, no motor deficits, speech is clear, no peripheral sensory deficits Results & Data Results & Data Vital Signs (Past 12 Hours) Vital Signs Temp Pulse Pulse Resp BP BP Pulse Ox 02/26/24 08:11 37.1 C 71 20 102/65 93 02/26/24 05:57 66 02/26/24 04:30 36.9 C 70 18 110/50 L 92 02/26/24 00:27 67 95 02/25/24 23:40 62 02/25/24 21:45 36.6 C 62 16 95/64 L 91 02/25/24 21:35 67 O2 Del Method 02/26/24 08:11 Room Air 02/26/24 05:57 02/26/24 04:30 Room Air 02/26/24 00:27 Room Air 02/25/24 23:40 02/25/24 21:45 Room Air 02/25/24 21:35 Laboratory Results Abnormal lab results 02/25/24 02/26/24 Range/Units 13:58 06:04 RBC 2.85 L (4.20-5.40) M/uL Hgb 10.1 L (12.0-16.0) g/dl Hct 30.4 L (37.0-47.0) % MCV 106.7 H (80.0-100.0) fL MCH 35.4 H (25.0-34.0) pg RDW Std Deviation 51.2 H (36.4-46.3) fL MPV 8.7 L (9.4-12.4) fL [place] # (Auto) 0.77 H (0.11-0.59) K/uL Sodium 131 L (136-145) mmol/L BUN 26 H (6-23) mg/dl BUN/Creatinine Ratio 29.2 H (10-20) Glucose 100 H (70-99(Fasting)) mg/dl Vitamin B12 > 1500 H (180-914) pg/ml (4) HTN (hypertension) Hypertension type: unspecified secondary hypertension Qualified Code(s): I15.9 - Secondary hypertension, unspecified
[2024-02-26] MEDS: CEROVITE ADV FORMULA TAB PO SCH (09:16)
[2024-02-26] MEDS: buPROPion XL 150 MG TABCR PO SCH (09:18)
[2024-02-26] MEDS: ATENOLOL 25 MG TABLET PO SCH (09:18)
[2024-02-26] MEDS: VITAMIN B COMPLEX TAB PO SCH (09:18)
[2024-02-26] MEDS: FOLIC ACID 1 MG TAB PO SCH (09:18)
[2024-02-26] MEDS: CHOLECALCIFEROL 125 MCG (5,000 UNITS) TAB PO SCH (09:18)
[2024-02-26] MEDS: CYANOCOBALAMIN (B-12) 2,500 MCG TABLET SL SCH (09:18)
[2024-02-26] MEDS: azaTHIOprine 50 MG TAB PO SCH (09:18)
[2024-02-26] MEDS: ASPIRIN 81 MG ECTAB PO SCH (10:08)
--- NOTE | 2024-02-26 11:12 | XRay Report ---
RIGHT ANKLE 3 VIEWS CLINICAL HISTORY: Fall. Right ankle injury. FINDINGS: 3 views of the right ankle are compared to study dated 04/28/2014 the skeletal structures are osteopenic. No fracture is identified. The ankle mortise is intact. No joint effusion is seen. There is a large plantar heel spur. Spurring is seen along the dorsal aspect of the tarsal bones. Mild sof t tissue swelling is noted. There is advanced atherosclerotic calcification of the regional arteries. IMPRESSION: 1. Mild soft tissue swelling with no radiographic evidence of acute fracture. 2. Large plantar heel spur. Electronically signed by: Sd Sutehrland M.D. 02/26/2024 11:11 AM
[2024-02-26] MEDS: MICONAZOLE NITRATE POWDER 85 GM EXT PRN (12:26)
[2024-02-26] MEDS: ceFAZolin 2000MG 2,000 MG/15 ML SYR IV SCH (12:28)
[2024-02-26] MEDS: HYDROmorphone INJ 0.5 MG/0.5 ML SYR IV PRN (13:09)
[2024-02-26] MEDS: ENOXAPARIN INJ 40 MG/0.4 ML SYR SQ SCH (15:06)
[2024-02-26] MEDS: oxyCODONE HCL IR 5 MG TAB (IMMEDIATE RELEASE) PO PRN (18:52)
[2024-02-27 08:00] LABS: Basophils # (auto) 0.03 K/uL (0.00-0.20); Basophils % (auto) 0.4 %; Eosinophils # (auto) 0.27 K/uL (0.00-0.50); Eosinophils % (auto) 3.5 %; Hematocrit (blood only) 26.5 % (37.0-47.0); Hemoglobin 8.8 g/dl (12.0-16.0); Immature Granulocytes # (auto) 0.03 K/uL (0.01-0.20); Immature Granulocytes % (auto) 0.4 %; Lymphocytes % (auto) 11.8 %; Mean Corpuscular Hemoglobin 34.8 pg (25.0-34.0); Mean Corpuscular Hgb Conc 33.2 g/dL (32.0-36.0); Mean Corpuscular Volume 104.7 fL (80.0-100.0); Mean Platelet Volume 8.7 fL (9.4-12.4); Monocytes # (auto) 0.54 K/uL (0.11-0.59); Monocytes % (auto) 7.1 %; Neutrophils # (auto) 5.88 K/uL (1.40-6.50); Neutrophils % (auto) 76.8 %; Platelet Count 176 K/uL (130-400); RDW Coefficient of Variation 12.9 % (11.5-14.5); RDW Standard Deviation 49.1 fL (36.4-46.3); Red Blood Count 2.53 M/uL (4.20-5.40); White Blood Count 7.65 K/ul (4.8-10.8)
[2024-02-27 08:10] LABS: BUN Creatinine Ratio 31.9 (10-20); Calcium 8.3 mg/dl (8.6-10.3); Creatinine Clr Calc Pharmacy 73.7 ml/min; Est GFR (Non-African American) 83.7 ml/min; Potassium 4.4 mmol/L (3.5-5.1)
[2024-02-27] MEDS ORDERED: POLYETHYLENE (MIRALAX) 17 GM PACK PO PRN (08:30)
--- NOTE | 2024-02-27 10:26 | Hospitalist Progress Note ---
Date of Service February 27, 2024 Assessment & Plan (1) Avulsion fracture of lateral condyle of left tibia: (2) Right tibial fracture: (3) Fall: (4) HTN (hypertension): (5) Dyslipidemia: (6) Depression: (7) GERD (gastroesophageal reflux disease): Plan Ms. Christian is a 73 year old female that presents to the ED after experiencing a mechanical fall on She was walking out of her apartment when both of her knees started making 'snapping' noises and buckled at the same time leading to her falling on both knees. Has had multiple knee replacement in the past; most recently in November on the left knee under the care of Dr. Tanner. Avulsion fracture left condyle left tibia: Right tibial fracture: Status post mechanical fall: Acute R Knee Xray: Nondisplaced acute periprosthetic fracture within the proximal metaphysis of the right tibia which may extend into the lateral tibial plateau. L Knee X-ray: Displaced avulsion fracture along the anterior aspect of the tibial tuberosity. No leukocytosis Left knee washout and closed with total of 15 sutures Orthopedic consulted -- appreciate recs- No plans for surgery at this time. Non weight bearing for 2-3 months. Will need rehab- CM to assist Ampicillin started in the ER for possible preop, also got dose of unasyn IV, will switch to Ancef at this time 02/25 for staph coverage. Scheduled Tylenol and Dilaudid prn pain control Continue colace, add senokot, make miralax daily rosana Xray R ankle negative for acute fx PT/OT nonweight bearing status CAD: Chronic Status post mild bilateral intracranial ICA stenosis Takes baby aspirin; resume 02/25 Borderline Hypotensive Chronically hypertensive, does not appear to be infectious at this time. Afebrile, WBC stable, no infectious source. Encourage hydration Takes losartan 50 mg BID ( unsure why BID) will HOLD losartan at this time. Consider reducing atenolol or dc pending BP tomorrow Dyslipidemia: Chronic Takes rosuvastatin; continue Depression: Chronic Wellbutrin and BuSpar; pt reports was taken off cymbalata about 3 weeks because of multiple agents. Resume due to worsening depressed state with incident and pt reporting sad mood and crying fits in the past 3 weeks prior to this, will resume 30 mg daily now. Titrate in 2 wks if noted benefit. DC Trazodone at bedtime; pt reports now working for her for sleep, trial and eval here, can consider resuming if sleep worsens ILD: Chronic Follows with pulmonary; Dr. Stanton TERRELL Takes azathioprine; continue Goals of care: Holiness: Prefers to avoid blood transfusions Open to B12, folate, iron Takes vitamin B12 and folic acid; continue GERD: Chronic Takes omeprazole; continue Disposition: From Home, lives in [facility], will require rehab after hospital stay due to nonweight bearing status for 2-3 mo. CM to assist with dispo to SNF. Lines: PIV x 1 FEN/GI: Allow HH diet CODE STATUS: DNR/DNI VTE prophylaxis: resume asa 81 mg A total of 50 minutes were spent with greater than 50% of that time face to face with the patient, personally reviewing all current laboratories, imaging studies, past medication reconciliation, outpatient chart review, and discussion with specialists to collaborate care for the patient with attending. Please see attending documentation for corrections and/or additions. Admission and Anticipated Discharge Date Admission Date: February 25, 2024 Supervising Physician Co-Signing Physician Notes Patient seen and examined Reports pain is improving Continue scheduled tylenol and oxycodone prn Optimize pain control BP is low today. Hold home losartan and monitor CM working on placement Patient reviewed with Advanced Practitioner Agree with Advanced Practitioner's evaluation, findings and plans and take full responsibility Subjective The pt is seen and examined this morning. Worked with PT, so her pain in bilateral legs is worse at this time. She states the Right leg is very difficult for her to move. 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 She was on cymbalta 90 mg about 3 weeks ago and was taken off it by Dr. Álvarez (psych), after being weaned down to 60 mg. Pt notes she is more sad and has crying fits since being off of it, and that was prior to this incident of bilateral leg fractures. At this time she would like to resume it if possible. She is also on wellbutrin, buspar, trazodone. Pt states trazodone doesn't seem to help her with sleep much. We discussed holding trazodone tonight, and resuming cymbalta at 30 mg. Pt agrees. Also noted is no BM in past 4 days. Encouraged drinking water, and asked nurse to give miralax which is prn. Will order this scheduled daily until BM. Add sennokot along with stool softener. Physical Exam Physical Exam: General: awake, alert, no apparent distress, obese white female Head: Normocephalic, atraumatic ENT: PERRL, EOMI, no pharyngeal exudate, mucous membranes moist Chest: Clear to auscultation, on room air, no adventitious breath sounds Cardiac: Regular rate and rhythm, no murmur, no JVD, normal peripheral pulses, good capillary refill Abdominal: NABS x 4 quadrants, soft, nondistended, nontender to palpation, no rebound or guarding Extremities: R knee elevated, immobilizer in place, Left knee dressing c/d/i. Unable to perform straight leg raise due to pain. Otherwise Normal inspection, no peripheral edema or erythema, calfs nontender to palpation. Can wiggle toes, reports neuropathy with tingling chronically in BLE Psych: Normal mood and affect Neuro: AAO x 3, strength intact bilaterally and rated 4/5, cannot do straight leg raise with either leg, no motor deficits, speech is clear, no peripheral sensory deficits Results & Data Results & Data Vital Signs (Past 12 Hours) Vital Signs Temp Pulse Pulse Resp BP BP Pulse Ox 02/27/24 07:51 37.1 C 77 16 96/46 L 90 02/27/24 07:12 02/27/24 06:00 75 02/27/24 03:34 37.1 C 79 18 125/76 92 02/26/24 23:35 36.9 C 72 18 107/65 92 O2 Del Method 02/27/24 07:51 Room Air 02/27/24 07:12 Room Air 02/27/24 06:00 02/27/24 03:34 Room Air 02/26/24 23:35 Room Air Laboratory Results 02/27/24 07:15 WBC 7.65 RBC 2.53 L Hgb 8.8 L Hct 26.5 L MCV 104.7 H MCH 34.8 H MCHC 33.2 RDW Std Deviation 49.1 H RDW Coeff of Alo 12.9 Plt Count 176 MPV 8.7 L Immature Gran % (Auto) 0.4 Neut % (Auto) 76.8 Lymph % (Auto) 11.8 [place] % (Auto) 7.1 Eos % (Auto) 3.5 Baso % (Auto) 0.4 Neut # (Auto) 5.88 Lymph # (Auto) 0.90 L [place] # (Auto) 0.54 Eos # (Auto) 0.27 Baso # (Auto) 0.03 Immature Gran # (Auto) 0.03 Sodium 130 L Potassium 4.4 Chloride 103 Carbon Dioxide 23 Anion Gap 4 BUN 23 Creatinine 0.72 Est Cr Clr Drug Dosing 73.7 Est GFR ( Amer) 97.0 Est GFR (Non-Af Amer) 83.7 BUN/Creatinine Ratio 31.9 H Glucose 111 H Calcium 8.3 L (4) HTN (hypertension) Hypertension type: unspecified secondary hypertension Qualified Code(s): I15.9 - Secondary hypertension, unspecified
[2024-02-27] MEDS: DULoxetine HCL 30 MG CAP PO SCH (10:47)
[2024-02-27] MEDS: SENNA 8.6 MG TAB PO SCH (12:03)
--- NOTE | 2024-02-27 13:56 | Orthopedic Progress Note ---
Date of Service February 27, 2024 Assessment & Plan (1) Fracture of proximal end of left tibia: Kalee will be nonweightbearing on both legs for 2 to 3 months. I do want her to stay in the knee immobilizers for now. She is on Lovenox 40 mg subcu daily for DVT prophylaxis. She is currently on Ancef for antimicrobial prophylaxis and she should be discharged home on oral antibiotics. I would recommend cefadroxil 500 mg twice a day for 4 to 6 weeks to make sure that left knee wound does not become infected. She should follow-up with orthopedics in about 2 weeks. We will check the laceration and get x-rays to make sure there is been no further displacement of the fracture. She is orthopedically stable for discharge when medically ready. Full orthopedic discharge instructions were placed in the discharge summary. (2) Fracture of proximal end of right tibia: Bryon Granda was seen and examined at bedside this morning. Unfortunately she still having a lot of pain. She is having a lot of pain mostly in her right knee. They tried some transfers with her earlier but they were generally not successful. She has no new complaints.. Review of Systems All systems reviewed & are unremarkable except as noted in HPI & below. Physical Exam On physical examination of both knees, she has knee immobilizers in place. Legs out full extension. She has active dorsiflexion plantarflexion of both ankles.. Results & Data Results & Data Laboratory Results . Diagnostic Findings . PG Care Time/CCT Total # of Minutes Spent Total Time Spent with Patient: Total time spent is greater than 50% in coordination of care (as documented) at patient's floor/unit and/or counseling patient: Coding Level of Care Code 80770 SUB INP/OBS CARE 2/35MIN Diagnoses Fracture of proximal end of left tibia S82.102A Encounter type: initial encounter Fracture morphology: unspecified fracture morphology Fracture type: open Fracture of proximal end of right tibia S82.101A Encounter type: initial encounter Fracture morphology: unspecified fracture morphology Fracture type: closed (1) Fracture of proximal end of left tibia Encounter type: initial encounter Fracture morphology: unspecified fracture morphology Fracture type: open (2) Fracture of proximal end of right tibia Encounter type: initial encounter Fracture morphology: unspecified fracture morphology Fracture type: closed Qualified Code(s): S82.101A - Unspecified fracture of upper end of right tibia, initial encounter for closed fracture
[2024-02-28 06:27] LABS: Basophils # (auto) 0.03 K/uL (0.00-0.20); Basophils % (auto) 0.5 %; Eosinophils # (auto) 0.39 K/uL (0.00-0.50); Eosinophils % (auto) 6.9 %; Hematocrit (blood only) 25.9 % (37.0-47.0); Hemoglobin 9.1 g/dl (12.0-16.0); Immature Granulocytes # (auto) 0.03 K/uL (0.01-0.20); Immature Granulocytes % (auto) 0.5 %; Lymphocytes # (auto) 0.88 K/uL (1.20-3.40); Lymphocytes % (auto) 15.5 %; Mean Corpuscular Hemoglobin 35.8 pg (25.0-34.0); Mean Corpuscular Hgb Conc 35.1 g/dL (32.0-36.0); Mean Platelet Volume 8.7 fL (9.4-12.4); Monocytes # (auto) 0.51 K/uL (0.11-0.59); Neutrophils # (auto) 3.85 K/uL (1.40-6.50); Neutrophils % (auto) 67.6 %; Platelet Count 153 K/uL (130-400); RDW Coefficient of Variation 12.7 % (11.5-14.5); RDW Standard Deviation 47.6 fL (36.4-46.3); Red Blood Count 2.54 M/uL (4.20-5.40); White Blood Count 5.69 K/ul (4.8-10.8)
[2024-02-28 06:52] LABS: BUN Creatinine Ratio 29.8 (10-20); Calcium 8.2 mg/dl (8.6-10.3); Creatinine Clr Calc Pharmacy 114.4 ml/min; Est GFR (African American) 114.4 ml/min; Est GFR (Non-African American) 98.7 ml/min; Potassium 4.1 mmol/L (3.5-5.1)
[2024-02-28] MEDS: POLYETHYLENE (MIRALAX) 17 GM PACK PO SCH (08:02)
--- NOTE | 2024-02-28 09:49 | Hospitalist Progress Note ---
Date of Service February 28, 2024 Assessment & Plan (1) Avulsion fracture of lateral condyle of left tibia: (2) Right tibial fracture: (3) Fall: (4) HTN (hypertension): (5) Dyslipidemia: (6) Depression: (7) GERD (gastroesophageal reflux disease): Plan 73 year old female that presents to the ED after experiencing a mechanical fall on She was walking out of her apartment when both of her knees started making 'snapping' noises and buckled at the same time leading to her falling on both knees. Has had multiple knee replacement in the past; most recently in November on the left knee under the care of Dr. Tanner. Mechanical Fall Avulsion fracture left condyle left tibia: Right tibial fracture: R Knee Xray: Nondisplaced acute periprosthetic fracture within the proximal metaphysis of the right tibia which may extend into the lateral tibial plateau. L Knee X-ray: Displaced avulsion fracture along the anterior aspect of the tibial tuberosity. Xray R ankle negative for acute fx No leukocytosis Left knee washout and closed with total of 15 sutures by ER Orthopedic eval appreciated: No plans for surgery at this time. Non weight bearing for 2-3 months. Will need rehab- CM to assist Ampicillin started in the ER for possible preop, also got dose of unasyn IV then switched to Ancef Antibiotics stopped today Scheduled Tylenol and Dilaudid prn pain control Aggressive bowel regimen Was recently on ASA BID after knee surgery. Will continue this even on dc for DVT ppx as well Chronic Hyponatremia Na worsened today to 126 Hx of Hyponatremia due SIADH and psychogenic polydipsia per outpatient Nephro from 01/2021 Serum osm 264 Fluid restriction 1.2L Recheck Na later. Monitor Na. If does not improve, get Nephro c/s CAD: Chronic Mild bilateral intracranial ICA stenosis Continue ASA and rosuvastatin Borderline Hypotensive Chronically hypertensive Takes losartan 50 mg BID ( unsure why BID) Losartan currently on hold due to hypotension Continue atenolol Dyslipidemia: Chronic Takes rosuvastatin; continue Depression: Chronic Wellbutrin and BuSpar; Pt reports was taken off cymbalata about 3 weeks because of multiple agents. Reports worsening depressed state in the past 3 weeks prior to this, Cymbalta 30 mg daily started for now Trazodone at bedtime stopped for now per pt's preference; pt reported it was not working for her for sleep Monitor ILD: Chronic Follows with pulmonary; Dr. Stanton TERRELL Takes azathioprine; continue Goals of care: Hoahaoism: Prefers to avoid blood transfusions Open to B12, folate, iron Takes vitamin B12 and folic acid; continue GERD: Chronic Takes omeprazole; continue Disposition: From Home, lives in [facility], will require rehab after hospital stay due to nonweight bearing status for 2-3 mo. CM to assist with dispo to SNF. Lines: PIV x 1 FEN/GI: Allow HH diet CODE STATUS: DNR/DNI VTE prophylaxis: Lovenox sq while inpatient. Continue ASA BID on dc I spent a total of 50 minutes coordinating, documenting and providing care for this patient excluding time spent in performance of separately billed services Admission and Anticipated Discharge Date Admission Date: February 25, 2024 Subjective Patient seen and examined Reports both knee and right ankle pains are improved Has not had a bowel movement Had urinary retention after removal of ann yesterday and was straight cath last evening with 1000cc of urine removed Removed she has had no problems urinating after that Denied dysuria, freq, abd pain, hematuria Denied nausea, vomiting, fever Denied cough, chest pain, SOB Reports depression but stated she feels better with cymbalta resumed yesterday Denied SI/HI Physical Exam Constitutional: + well hydrated; no acute distress Eyes: PERRL, conjunctivae normal, anicteric sclerae ENMT: external ear and nose normal, oropharynx normal Respiratory: normal respiratory effort, lungs clear to auscultation Cardiovascular: S1 S2 Gastrointestinal (Abdomen): normal bowel sounds, soft, nontender, no hepatosplenomegaly Musculoskeletal: Bilateral knee immobilizers in place No pedal edema Neurologic: PERRL, EOMI, accommodation nl, no face palsy, no dysarthria Psychiatric: A+Ox3, euthymic affect Results & Data Results & Data Vital Signs (Past 12 Hours) Vital Signs Temp Pulse Pulse Resp BP Pulse Ox O2 Del Method 02/28/24 07:47 37.0 C 69 18 140/83 93 Room Air 02/28/24 04:12 36.7 C 67 20 105/66 93 Room Air 02/28/24 00:44 36.9 C 73 20 136/76 93 Room Air 02/27/24 22:02 73 Laboratory Results Abnormal lab results 02/28/24 02/28/24 Range/Units 06:02 08:07 RBC 2.54 L (4.20-5.40) M/uL Hgb 9.1 L (12.0-16.0) g/dl Hct 25.9 L (37.0-47.0) % MCV 102.0 H (80.0-100.0) fL MCH 35.8 H (25.0-34.0) pg RDW Std Deviation 47.6 H (36.4-46.3) fL MPV 8.7 L (9.4-12.4) fL Lymph # (Auto) 0.88 L (1.20-3.40) K/uL Sodium 126 L (136-145) mmol/L Creatinine 0.47 L (0.6-1.2) mg/dl BUN/Creatinine Ratio 29.8 H (10-20) Osmolality 264 L (280-300) mOsm/kg Calcium 8.2 L (8.6-10.3) mg/dl (4) HTN (hypertension) Hypertension type: unspecified secondary hypertension Qualified Code(s): I15.9 - Secondary hypertension, unspecified
[2024-02-28] MEDS: ONDANSETRON INJ 2 MG/ML 2 ML VIAL IV PRN (15:56)
[2024-02-28 16:30] LABS: BUN Creatinine Ratio 28.3 (10-20); Calcium 8.4 mg/dl (8.6-10.3); Creatinine Clr Calc Pharmacy 116.9 ml/min; Est GFR (African American) 115.2 ml/min; Est GFR (Non-African American) 99.4 ml/min; Potassium 4.6 mmol/L (3.5-5.1)
[2024-02-29 06:38] LABS: BUN Creatinine Ratio 34.6 (10-20); Calcium 8.1 mg/dl (8.6-10.3); Creatinine Clr Calc Pharmacy 102.2 ml/min; Est GFR (African American) 110.6 ml/min; Est GFR (Non-African American) 95.5 ml/min; Potassium 4.4 mmol/L (3.5-5.1)
--- NOTE | 2024-02-29 08:47 | XRay Report ---
KUB CLINICAL HISTORY: Constipation. Urinary retention. FINDINGS: An AP, portable, supine abdominal radiograph is compared to study dated 06/10/2018 and corre lated with abdominal CT dated 08/31/2023. There is a nonobstructed abdominal bowel gas pattern. Moder ate fecal retention is noted throughout the colon. No evidence of intraperitoneal free air is seen on this supine image. There are no abnormal abdominal calcifications. The skeletal structures are osteo penic. Spondylotic and postsurgical change is noted in the lumbar spine. IMPRESSION: No acute abnormality is identified. Electronically signed by: Sd Sutherland M.D. 02/29/2024 8:46 AM
[2024-02-29] MEDS: SOD PHOSPHATE/SOD BIPHOSPHATE ENEMA 132 ML BTL PR STA (10:07)
[2024-02-29] MEDS ORDERED: cephALEXin 500 MG CAP PO SCH (13:00)
--- NOTE | 2024-02-29 13:03 | Discharge Summary ---
Date of Service February 29, 2024 Admission HPI Per Admitting Provider Ms. Gabriel is a 73 year old female that presents to the ED after experiencing a mechanical fall this afternoon around 1230. She was walking out of her apartment when both of her knees started making 'snapping' noises and buckled at the same time leading to her falling on both knees. She had her phone and was able to call her neighbors who called 911. She denies hitting her head of having LOC. She denies taking any anticoagulation medication. Leading up to today patient denies any overt illness or recent travel. In the ED left and right knee x-rays performed with the following results: R Knee Xray: Nondisplaced acute periprosthetic fracture within the proximal metaphysis of the right tibia which may extend into the lateral tibial plateau. L Knee X-ray: Displaced avulsion fracture along the anterior aspect of the tibial tuberosity. In the ED, no leukocytosis, otherwise labs unremarkable slight hyponatremia; 131. Additional past medical history includes ILD, HTN, HLD, depression and anxiety, hypothyroidism and left total knee replacement x2; most recent in November 2023. Patient denies tobacco use, alcohol use, recreational drug use. Patient reports that she is a Orthodoxy and is not open to any blood transfusions which is noted below. She is open to alternate medications for infusion including vitamin D B12 and folic acid which she takes as an outpatient and iron. ED spoke with Dr. Tanner with orthopedics directly indicating open injury of the tibia with potentially a shard of her joint replacement that has cut through her thin skin due to history of knee replacements and scar tissue that has developed. The wound was washed twice in the ED and closed via sutures. Patient denies fever, chills, headache, dizziness, visual or auditory changes, chest pain, palpitations, nausea, vomiting, diarrhea, abdominal pain or tenderness, other recent falls or trauma. Patient will be admitted for further evaluation and management of bilateral tibia fractures with left avulsion fracture of the anterior tibia. We will keep her n.p.o. after midnight, continue IV antibiotics; ampicillin, scheduled Tylenol and Dilaudid as needed for pain control. Right knee immobilizer placed and will continue home medications along with stool softeners. Will hold aspirin in a.m. pending Ortho consult. Admission Exam Per Admitting Provider Neuro: AAOx4, PERRLA, no aphagia, memory changes, CNII-XII grossly intact HEENT: head normocephalic, moist mucus membranes CV: S1/S2, (-) M/G/R, (-) edema, cap refill < 3 seconds Resp: Lungs CTA in all cole. On RA GI: Abdomen S/NT/ND, Ax4 bowel sounds, (-) CVA tenderness Musculoskeletal: 5/5 B/L UE strength, 5/5 B/L LE strength. No gait disturbance Skin: (-) rashes , (-) erythema. (+) L patellar sutures medial aspect 5 sutures, distal aspect 10 sutures; newly placed; wound edges well approximated. R anterior tatum with dressing intact. R knee immobilizer in place Psych: euthymic mood Principal Diagnosis Fall Fracture of proximal end of left and right tibia Discharge Exam Constitutional + well hydrated; no acute distress Eyes PERRL, conjunctivae normal, anicteric sclerae ENMT external ear and nose normal, oropharynx normal Respiratory normal respiratory effort, lungs clear to auscultation Cardiovascular S1 S2 Gastrointestinal (Abdomen) normal bowel sounds, soft, nontender, no hepatosplenomegaly Musculoskeletal Knee immobilizer in place on both knees Neurologic PERRL, EOMI, accommodation nl, no face palsy, no dysarthria Psychiatric A+Ox3, euthymic affect Discharge Data Allergies Allergy/AdvReac Type Severity Reaction Status Date / Time diphenhydramine Allergy Intermediate Hallucinati Verified 02/25/24 17:04 [From Benadryl] ng morphine AdvReac Severe Low BP Verified 02/25/24 17:04 gabapentin AdvReac Intermediate swelling Verified 02/25/24 17:04 of lower legs lisinopril AdvReac Intermediate Cough Verified 02/25/24 17:04 pregabalin [From Lyrica] AdvReac Intermediate sweating/ho Verified 02/25/24 17:04 t Consultations 02/25/24 15:33 Consult Orthopedic Surgery Routine 02/25/24 16:25 ED Decision to Admit Stat Hospital Course (1) Avulsion fracture of lateral condyle of left tibia: (2) Right tibial fracture: (3) Fall: (4) HTN (hypertension): (5) Dyslipidemia: (6) Depression: (7) GERD (gastroesophageal reflux disease): Plan 73 year old female that presents to the ED after experiencing a mechanical fall on 6/5/224 She was walking out of her apartment when both of her knees started making 'snapping' noises and buckled at the same time leading to her falling on both knees. Has had multiple knee replacement in the past; most recently in November on the left knee under the care of Dr. Tanner. Mechanical Fall Avulsion fracture left condyle left tibia: Right tibial fracture: R Knee Xray: Nondisplaced acute periprosthetic fracture within the proximal metaphysis of the right tibia which may extend into the lateral tibial plateau. L Knee X-ray: Displaced avulsion fracture along the anterior aspect of the tibial tuberosity. Xray R ankle negative for acute fx No leukocytosis Left knee washout and closed with total of 15 sutures by ER Orthopedic eval appreciated: No plans for surgery at this time. Non weight bearing for 2-3 months. Ampicillin started in the ER for possible preop, also got a dose of unasyn IV then switched to Ancef Switched to po keflex on discharge to complete treatment Scheduled Tylenol and prn oxycodone Had constipation with urinary retention. Had aggressive bowel regimen These resolved today Discharged on lovenox sq for DVT ppx while nonambulatory Need to follow up with Ortho outpatient Chronic Hyponatremia Na worsened today to 126 Hx of Hyponatremia due SIADH and psychogenic polydipsia per outpatient Nephro from 01/2021 Serum osm 264 Fluid restriction 1.2L Na is 129 today Educated on fluid restriction CAD: Chronic Mild bilateral intracranial ICA stenosis Continue ASA and rosuvastatin Borderline Hypotensive Chronically hypertensive Takes losartan 50 mg BID Losartan stopped inpatient due to hypotension BP normal. Continue to hold losartan on discharge until reevaluated at rehab or by PCP Continue atenolol Dyslipidemia: Chronic Takes rosuvastatin; continue Depression: Chronic Wellbutrin and BuSpar; Pt reports was taken off cymbalata about 3 weeks because of multiple agents. Reports worsening depressed state in the past 3 weeks prior to this, Cymbalta 30 mg daily started for now Monitor ILD: Chronic Follows with pulmonary; Dr. Stanton TERRELL Takes azathioprine; continue Goals of care: Orthodoxy: Prefers to avoid blood transfusions Open to B12, folate, iron Takes vitamin B12 and folic acid; continue GERD: Chronic Takes omeprazole; continue Total Time Total Time Spent Total Time Spent (In Minutes): 35 Total Time Includes: Examination of the Patient, Discharge Planning and Medication Reconciliation Discharge Plan Discharge Items Patient Disposition: Transfer Inpatient Rehab Fac Reason For Visit: S/P FALL TIBIA FRACTURE X 2 Discharge Diagnosis: Fall Fracture of proximal end of left and right tibia Condition on Discharge: Fair Activity: As commented below Weightbearing Comment: Non weight bearing on both legs for 2-3 months Non-emergency contact: Primary Care Provider and Surgeon Call non-emergency contact if: you have any medication questions Follow-up/Referrals: Uma Mark DO [Primary Care Provider] - Diet: Heart Healthy and Low Sodium (2gm) Fluids: 1500ml (6 cups) Addtl Attending Provider Instructions: Mrs Christina You came to the hospital after a fall You were evaluated and found to have bilateral knee fracture You are to be non weightbearing for now Please ensure follow up with Orthopedic surgeon in 2 weeks Please use lovenox injection daily for blood clot prevention while non ambulatory. Your losartan was stopped for now due to low blood pressure. This can be reevaluated at the rehab facility or by your primary doctor. Please take keflex for next 7 days You are being discharged to [facility] It was a pleasure taking care of you. Addtl Nude Model Provider Instructions: ORTHOPEDIC INSTRUCTIONS Activity Recommendations: Nonweightbearing on both legs. Knee immobilizer on each leg at all times. Medications: Lovenox for DVT prophylaxis You should be on an oral antibiotic to help prevent infection. Follow-Up Visit: Follow-up with Dr. Tanner's PA (Ramone Sarmiento) in 2 weeks. We will check the incision, likely remove the sutures, and get x-rays of the need to make sure there is been no further displacement. Dr. Tanner will be in the office if there are any concerns. Please call the office to set an appointment for a time that works for you ([phone]) Pending Studies at Discharge: No Stand-Alone Forms: My [facility] Skilled Items Patient informed of condition?: Yes DNR: Yes Discharge Level of Care: Acute rehab Communicable Disease: No Discharge Prognosis: Stable Lines: None Urinary Catheter: No Medications and DC Order Prescriptions: New acetaminophen [Tylenol Extra Strength] 500 mg Tablet 1,000 mg PO Q8H 7 Days Qty: 42 0RF cephalexin 500 mg Capsule 500 mg PO QID 7 Days Qty: 28 0RF oxycodone 5 mg Tablet See Rx Instructions .ROUTE .COMPLEX PRN (Reason: pain) Qty: 60 0RF Rx Instructions: Take 5mg every 4 hours as needed for mild to moderate pain and 10mg for severe pain enoxaparin [Lovenox] 40 mg/0.4 mL Syringe 40 mg subcut QAM 30 Days Qty: 12 0RF duloxetine 30 mg Capsule,Delayed Release(Dr/Ec) 30 mg PO QAM Qty: 30 0RF polyethylene glycol 3350 [Miralax] 17 gram Powder In Packet 17 g PO DAILY PRN (Reason: constipation) Qty: 30 0RF Continued cyproheptadine 4 mg Tablet 8 mg PO HS calcium carbonate [Calcium 600] 600 mg calcium (1,500 mg) Tablet 600 mg PO BID ferrous sulfate 325 mg (65 mg iron) Tablet 325 mg PO Q2D buspirone 10 mg Tablet 10 mg PO TID docusate sodium 100 mg Capsule 100 mg PO AMHS omeprazole 20 mg Capsule,Delayed Release(Dr/Ec) 20 mg PO AMHS folic acid 1 mg Tablet 1 mg PO QAM magnesium 250 mg Tablet 250 mg PO QAM rosuvastatin [Crestor] 5 mg Tablet 5 mg PO HS bupropion HCl [Wellbutrin XL] 150 mg Tablet Extended Release 24 Hr 150 mg PO QAM cholecalciferol (vitamin D3) [Vitamin D3] 5,000 unit Tablet 5,000 unit PO QAM trazodone 100 mg tablet 150 mg PO HS atenolol 25 mg Tablet 25 mg PO QAM levothyroxine 88 mcg Tablet 88 mcg PO DAILYBB Rx Instructions: before breakfast loratadine 10 mg Tablet 10 mg PO DAILY PRN (Reason: Nasal Congestion) ondansetron HCl 4 mg tablet 4 mg PO Q6 PRN (Reason: Nausea) meclizine 12.5 mg tablet 12.5 mg PO TID PRN (Reason: Dizziness) valacyclovir 500 mg tablet 500 mg PO QAM amino acid-multivit w/iron-min Tablet 1 tab PO HS pramipexole 0.25 mg tablet 0.25 mg PO TID vitamin B complex Tablet 1 tab PO DAILY azelastine 137 mcg (0.1 %) Aerosol,[place] 1 spray INTRANASAL BID Rx Instructions: administer into each nostril cyanocobalamin (vitamin B-12) [Vitamin B-12] 5,000 mcg Tablet, Sublingual 5,000 mcg SUBLINGUAL DAILY Ocuvite Eye Health 50 mg-15 unit- 4.5 mg-2.5 mg Tablet,Chewable 1 tab PO DAILY azathioprine 50 mg tablet 50 mg PO QAM Changed aspirin 81 mg tablet,delayed release (DR/EC) 81 mg PO DAILY 42 Days Qty: 0 0RF Discontinued losartan 50 mg Tablet 50 mg PO BID tizanidine 2 mg tablet 2 - 4 mg PO HS PRN (Reason: Pain) Discharge Orders: Discharge Order (Routine); Ordered 02/29/24 Ordered By: Marie Montalvo Admission Data Admit Date/Time: 02/25/24 16:25 Attending Provider: Marie Montalvo I. Admit Provider: Marylu Meehan Primary Care Provider: Uam Mark Other Providers: Ramone Tanner; Marylu Meehan; [facility] Other Interventions: Discharge Summary Assessment (RN) Last Done: 02/29/24 13:36
== END 2024-02-29 14:12 | DRG 563 ==
LOC: ED 13:21 → SUATTDRO 16:25 → 3W 16:25 → 2N 21:25

== ENCOUNTER 2024-03-07 11:48 | Inpatient (IN) ==
--- OUTSIDE RECORDS SUMMARY | 2024-03-07 11:53 | External Medical Summary ---
Author Name Unknown Address Unknown Organization [id number]:[facility] [address] [place] [address] Laboratory Report Ordering Provider Test Date Status HY,DEPAMPHILIS 03/07/2024 05:59:00 Final Observation Date Value Abnormality Reference (Units ) Status BUN 03/07/2024 05:59:00 10 6-20 (mg/dL) Final Creatinine 03/07/2024 05:59:00 0.5 0.5-1.0 (mg/dL) Final Glomerular filtration rate/1.73 sq M.predicted [Volume Rate/Area] in Serum, Plasma or Blood by Creatinine-based formula (CKD-EPI) 03/07/2024 05:59:00 >90 >=60 (mL/min) Final eGFR is calculated based on the CKD-EPI 2020 equation Sodium 03/07/2024 05:59:00 129 Below low normal 135 -146 (mmol/L) Final Potassium 03/07/2024 05:59:00 3.9 3.5-5.1 (m mol/L) Final Cl 03/07/2024 05:59:00 91 Below low normal 98- 107 (mmol/L) Final CO2 03/07/2024 05:59:00 24 22-32 (mmo l/L) Final Anion gap 03/07/2024 05:59:00 14 7-15 (mmol /L) Final Glucose 03/07/2024 05:59:00 100 70-120 (mg /dL) Final Calcium 03/07/2024 05:59:00 8.9 8.4-10.2 ( mg/dL) Final Performing Location [facility] [place] [address]
--- OUTSIDE RECORDS SUMMARY | 2024-03-07 11:54 | External Medical Summary | Summary of Care ---
Author Name Unknown Organization [facility] Address [address] [place] [address] Phone [phone] Care Team Providers Care Upkeep Worker Name Role Phone Uma Mark DO Primary Care Provider Reason for Visit * Reason Onset Date Comments Advice 03/03/2024 Encounter Details Date Type Department Care Team (Late st Contact Info) Description 03/03/2024 Telephone [facility] [address] [place] [address] Uma Mark DO [address] [place] [address] Advice Allergies Active Allergy Reactions Criticality Noted Date Comments Diphenhydramine 06/12/2023 HALLUCINATIONS. Gabapentin 10/10/2022 Retained fluid Lisinopril Cough 08/09/2019 Pregabalin Other (Please comment) 02/14/2023 Hot all over " I felt like I was on fire inside and out" Morphine Sulfate 07/19/2010 Lowers her blood pressure documented as of this encounter (statuses as of 03/05/2024) Medications Medication Sig Dispensed Refills Start Date End Date Status CALCIUM 600 600 MG PO TABSIndications:in pm Take by mouth. Active OCUVITE EXTRA PO TABS once daily 06/15/2013 Act dinah ECOTRIN LOW STRENGTH 81 MG PO TBEC [...] Amoxicillin 500 MG Oral Capsule (Amoxil) 05/31/2021 Act dinah buPROPion HCl ER (SR) 150 MG Oral Tablet Extended Release 12 Hour (Wellbutrin SR) Take 1 Tablet by mouth in the morning. In the morning.. 30 Tablet 1 02/20/2023 Active traZODone HCl 100 MG Oral Tablet (Desyrel) Take 1 Tablet by mouth at bedtime. 2 at bedtime 180 Tablet 04/02/2023 Active Lysine 500 MG Oral Tablet Take by mouth. Active Cyproheptadine HCl 4 MG Oral Tablet (Periactin)Indication s:in evening 1 tablet daily 90 Tablet 5 07/28/2023 Active Levothyroxine Sodium 88 MCG Oral Tablet (Levoxyl)Indications: Hypothyroidism TAKE 1 TABLET BY MOUTH EVERY MORNING ON AN EMPTY STOMACH 90 Tablet 3 08/06/2023 Active Atenolol 25 MG Oral Tablet (Tenormin) TAKE 1 TABLET IN THE MORNING STRENGTH: 25 MG 90 Tablet 1 09/03/2023 Active busPIRone HCl 10 MG Oral Tablet (Buspar)Indications:A nxiety state,Adjustment disorder with depressed mood TAKE 1 TABLET BY MOUTH IN THE MORNING, 1 AT NOON AND 1 BEFORE BEDTIME 20 Tablet 11/12/2023 Active Rosuvastatin Calcium 5 MG Oral Tablet (Crestor)Indications: Hyperlipidemia TAKE 1 TABLET BY MOUTH EVERY DAY IN THE MORNING 90 Tablet 1 12/06/2023 Active Meclizine HCl 12.5 MG Oral Tablet (Antivert)Indications :Vertigo TAKE 1 TABLET BY MOUTH THREE TIMES A DAY NEEDED FOR DIZZINESS 45 Tablet 1 12/05/2023 Active Loratadine 10 MG Oral Tablet (Claritin)Indications :Other chronic sinusitis TAKE 1 TABLET BY MOUTH EVERY DAY IN THE MORNING 90 Tablet 1 12/09/2023 Active Folic Acid 1 MG Oral Tablet TAKE 1 TABLET BY MOUTH EVERY DAY IN THE MORNING 90 Tablet 1 12/17/2023 Active Omeprazole 20 MG Oral Capsule Delayed Release (PriLOSEC)Indications :Gastroesophageal reflux disease without esophagitis TAKE 1 CAPSULE IN THE MORNING AND 1 CAPSULE BEFORE BEDTIME (DOSE INCREASE) 180 Capsule 12/24/2023 Active Ondansetron HCl 4 MG Oral Tablet (Zofran)Indications:N ausea Take 1 Tablet by mouth every 6 hours as needed for Nausea. 60 Tablet 1 12/24/2023 Active Pramipexole Dihydrochloride 0.25 MG Oral Tablet (Mirapex)Indications: Restless legs syndrome TAKE 1 TABLET BY MOUTH [...] Active Losartan Potassium 50 MG Oral Tablet (Cozaar)Indications:H TN, goal below 140/90 TAKE 1 TABLET BY [...] as of this encounter (statuses as of 03/05/2024) Active Problems Problem Noted Date Diagnosed Date Pain in both feet 05/30/2023 Food insecurity 03/31/2023 Overview: Per [facility] Protocol ILD (interstitial lung disease) [...] as of this encounter (statuses as of 03/05/2024) Resolved Problems Problem Noted Date Diagnosed Date [...] as of this encounter (statuses as of 03/05/2024) Immunizations Name Administration Dates Next Due COVID-19 [...] Telephone Encounter - Uma Mark DO - 03/05/2024 11:27 AM EDT Please clarify what pt needs? * Telephone Encounter - Miley Read OSA - 03/03/2024 3:48 PM EDT Kalee has questions about her mo at [facility] and they want to give her an oral sodium and she was told before she needed to go to the hospital for a drip. Please advise & call Kalee back. documented in this encounter Plan of Treatment Upcoming Encounters Date Type Department Care Team (Late st Contact Info) Description 03/24/2024 8:30 AM EDT Office Visit Rheumatology [facility] [address] [facility] [place] [address] Lance Castanon CRNP [address] [facility] [place] [address] 03/31/2024 10:30 AM EDT Telemedicine Pharmacy, [facility] [address] [facility] [place] [address] [facility] [address] [place] [address] 04/20/2024 11:25 AM EDT Office Visit Interventional Pain Center, [facility] [address] [facility] [place] [address] Natan Collins, DO [address] [place] [address] 06/28/2024 9:30 AM EDT Office Visit [address] [phone] Uma Mark, [address] [address] Scheduled Procedures Name Priority Associated Diagnoses Date/Ti me COLONOSCOPY FLEXIBLE PROXIMAL DIAGNOSTIC Recall History of colon polyps Health Maintenance Due Date Last Done Comments Cologuard 1996 Fecal Occult Blood Test 1996 Sigmoidoscopy 1996 COVID-19 Vaccine ( season) 2023 08/28/2023, 06/12/2021, 11/23/2020, Additional history exists Depression Monitoring 03/21/2024 03/21/2023 Mammogram 04/18/2024 04/18/2023, 03/23, 04/15/2022, Additional history exists DXA Scan 10/28/2024 10/28/2017, 09/2009, 10/23/2009 TSH 12/23/2024 12/24/2023, 10/2022, 05/23/2022, Additional history exists GFR 03/05/2025 03/05/2024, 02/20, 03/01/2024, Additional history exists Albumin/Creatinine Ratio 06/23/2026 023, [...] Documents on File Type Date Recorded Patient Electronic Organ Technician Expl anation Power of Lease Picker 08/28/2016 POWER OF A TTORNEY POWER OF BIOLOGICAL SCIENCE TECHNICIAN INFO Care Teams Upkeep Worker Relationship Specialty Start Date End Date Uma Mark DO [address] [place] [address] PCP - General Family Medicine 12/20/22 documented as of this encounter
--- OUTSIDE RECORDS SUMMARY | 2024-03-07 11:54 | External Medical Summary ---
Author Name Unknown Address Unknown Organization K09:[facility] [place] [address] Laboratory Report Ordering Provider Test Date Status HY,DEPAMPHILIS 03/01/2024 05:54:28 Final Observation Date Value Abnormality Reference (Units ) Status BUN 03/01/2024 05:54:28 13 6-20 (mg/dL) Final Creatinine 03/01/2024 05:54:28 0.5 0.5-1.0 (mg/dL) Final Glomerular filtration rate/1.73 sq M.predicted [Volume Rate/Area] in Serum, Plasma or Blood by Creatinine-based formula (CKD-EPI) 03/01/2024 05:54:28 >90 >=60 (mL/min) Final eGFR is calculated based on the CKD-EPI 2020 equation Sodium 03/01/2024 05:54:28 125 Below low normal 135 -146 (mmol/L) Final Potassium 03/01/2024 05:54:28 4.5 3.5-5.1 (m mol/L) Final Cl 03/01/2024 05:54:28 89 Below low normal 98- 107 (mmol/L) Final CO2 03/01/2024 05:54:28 28 22-32 (mmo l/L) Final Anion gap 03/01/2024 05:54:28 8 7-15 (mmol /L) Final Glucose 03/01/2024 05:54:28 88 70-120 (mg /dL) Final Calcium 03/01/2024 05:54:28 8.5 8.4-10.2 ( mg/dL) Final Performing Location [facility] [place] [address]
--- OUTSIDE RECORDS SUMMARY | 2024-03-07 11:54 | External Medical Summary ---
Author Name Unknown Address Unknown Organization K[facility] [place] [address] Laboratory Report Ordering Provider Test Date Status HY,DEPAMPHILIS 03/01/2024 05:54:28 Final Observation Date Value Abnormality Reference (Units ) Status WBC, Total 03/01/2024 05:54:28 7.01 4.00-10.8 0 (K/uL) Final RBC 03/01/2024 05:54:28 2.75 3.85-5.15 (M/uL) Final Hemoglobin 03/01/2024 05:54:28 9.7 Below low normal 12 .0-15.3 (g/dL) Final HCT 03/01/2024 05:54:28 28.9 Below low normal 36. 0-45.2 (%) Final MCV 03/01/2024 05:54:28 105.1 81.5-97.5 (fL) Final MCH 03/01/2024 05:54:28 35.3 27.0-34.0 (pg) Final MCHC 03/01/2024 05:54:28 33.6 32.0-36.0 (g/dL) Final RDW 03/01/2024 05:54:28 11.5 11.5-15.5 (%) Final Platelets 03/01/2024 05:54:28 264 140-400 (K /uL) Final MPV 03/01/2024 05:54:28 8.8 6.6-11.1 ( fL) Final Performing Location [facility] [place] [address]
--- OUTSIDE RECORDS SUMMARY | 2024-03-07 11:54 | External Medical Summary | Summary of Care ---
Author Name Unknown Organization [facility] Address [address] [place] [address] Phone [phone] Care Team Providers Care Linesperson Name Role Phone Uma Mark DO Primary Care Provider Reason for Visit * Reason Onset Date Comments Advice 03/03/202403/05 lmom Encounter Details Date Type Department Care Team (Late st Contact Info) Description 03/03/2024 Telephone [facility] [address] [place] [address] Uma Mark DO [address] [place] [address] Advice (03/05 lmom) Allergies Active Allergy Reactions Criticality Noted Date [...] feet 05/30/2023 Food insecurity 03/31/2023 Overview: Per [facility] Protocol ILD (interstitial lung disease) 04/12/2021 [...] encounter Miscellaneous Notes * Telephone Encounter - Martina Olson LPN - 03/05/2024 12:28 PM EDT left message on machine to call office * Telephone Encounter - Uma Mark DO [...] 03/24/2024 8:30 AM EDT Office Visit Rheumatology [address] [place] [address] Lance Castanon CRNP [address] [place] [address] [place] [address] 03/31/2024 10:30 AM EDT Telemedicine Pharmacy, [facility] [address] [facility] [place] [address] [facility] [address] [facility] [address] 04/20/2024 11:25 AM EDT Office Visit Interventional Pain Center, [facility] [address] [facility] [place] [address] Natan Collins DO [address] [facility] [place] [phone] 06/28/2024 9:30 AM EDT Office Visit [address] [phone] Uma Mark [address] [place] [phone] Scheduled Procedures Name Priority Associated Diagnoses Date/Ti [...] Documents on File Type Date Recorded Patient Assistant Import Manager Expl anation Power of Bedspring Assembler 08/28/2016 POWER OF A TTORNEY POWER OF SHIFT LAB TECHNICIAN [facility] Care Teams Linesperson Relationship Specialty Start Date End Date Uma Mark DO [address] [facility] [place] [address] PCP - General Family Medicine 12/20/22 documented as of this encounter
--- OUTSIDE RECORDS SUMMARY | 2024-03-07 11:54 | External Medical Summary ---
Author Name Unknown Address Unknown Organization K09[facility] [place] [address] Laboratory Report Ordering Provider Test Date Status MALUIK GARCIA 03/05/2024 06:04:14 Final Observation Date Value Abnormality Reference (Units ) Status BUN 03/05/2024 06:04:14 14 6-20 (mg/dL) Final Creatinine 03/05/2024 06:04:14 0.5 0.5-1.0 (mg/dL) Final Glomerular filtration rate/1.73 sq M.predicted [Volume Rate/Area] in Serum, Plasma or Blood by Creatinine-based formula (CKD-EPI) 03/05/2024 06:04:14 >90 >=60 (mL/min) Final eGFR is calculated based on the CKD-EPI 2020 equation Sodium 03/05/2024 06:04:14 129 Below low normal 135 -146 (mmol/L) Final Potassium 03/05/2024 06:04:14 4.0 3.5-5.1 (m mol/L) Final Cl 03/05/2024 06:04:14 91 Below low normal 98- 107 (mmol/L) Final CO2 03/05/2024 06:04:14 25 22-32 (mmo l/L) Final Anion gap 03/05/2024 06:04:14 13 7-15 (mmol /L) Final Glucose 03/05/2024 06:04:14 90 70-120 (mg /dL) Final Calcium 03/05/2024 06:04:14 8.6 8.4-10.2 ( mg/dL) Final Performing Location [facility] [place] [address]
--- OUTSIDE RECORDS SUMMARY | 2024-03-07 11:54 | External Medical Summary ---
Author Name Unknown Address Unknown Organization K09[facility] [place] [address] Laboratory Report Ordering Provider Test Date Status MAULIK GARCIA 03/04/2024 06:23:20 Final Observation Date Value Abnormality Reference (Units ) Status BUN 03/04/2024 06:23:20 10 6-20 (mg/dL) Final Creatinine 03/04/2024 06:23:20 0.5 0.5-1.0 (mg/dL) Final Glomerular filtration rate/1.73 sq M.predicted [Volume Rate/Area] in Serum, Plasma or Blood by Creatinine-based formula (CKD-EPI) 03/04/2024 06:23:20 >90 >=60 (mL/min) Final eGFR is calculated based on the CKD-EPI 2020 equation Sodium 03/04/2024 06:23:20 125 Below low normal 135 -146 (mmol/L) Final Potassium 03/04/2024 06:23:20 4.6 3.5-5.1 (m mol/L) Final Cl 03/04/2024 06:23:20 88 Below low normal 98- 107 (mmol/L) Final CO2 03/04/2024 06:23:20 26 22-32 (mmo l/L) Final Anion gap 03/04/2024 06:23:20 11 7-15 (mmol /L) Final Glucose 03/04/2024 06:23:20 98 70-120 (mg /dL) Final Calcium 03/04/2024 06:23:20 8.9 8.4-10.2 ( mg/dL) Final Performing Location [facility] [place] [address]
--- OUTSIDE RECORDS SUMMARY | 2024-03-07 11:54 | External Medical Summary | Summary of Care ---
Author Name Unknown Organization [facility] Address [address] [place] [address] Phone [phone] Care Team Providers Care Draftsperson Name Role Phone Destiny Jacobsen DO Primary Care Provider [phone] Reason for Visit * Reason Comments eRx-Medication Refill Encounter Details Date Type Department Care Team (Late st Contact Info) Description 03/03/[address] [facility] [address] [place] [address] Destiny Jacobsen DO [address] [place], [place] [id number] Oral ulcer Allergies Active Allergy Reactions Criticality Noted Date Comments Diphenhydramine 06/12/2023 HALLUCINATIONS. Gabapentin 10/10/2022 Retained fluid Lisinopril Cough 08/09/2019 Pregabalin Other (Please comment) 02/14/2023 Hot all over " I felt like I was on fire inside and out" Morphine Sulfate 07/19/2010 Lowers her blood pressure documented as of this encounter (statuses as of 03/04/2024) Medications Medication Sig Dispensed Refills Start Date [...] and tightness 180 Tablet 3 4 Active valACYclovir HCl 500 MG Oral Tablet (Valtrex)Indication s:Oral ulcer TAKE 1 TABLET BY MOUTH IN THE MORNING. FOR TRANSMISSION REDUCTION. 90 Tablet 1 4 Active valACYclovir HCl 500 MG Oral Tablet (Valtrex)Indication s:Oral ulcer TAKE 1 TABLET BY MOUTH IN THE MORNING. FOR TRANSMISSION REDUCTION. 90 Tablet 1 3 024 Discontinued documented as of this encounter (statuses as of 03/04/2024) Active Problems Problem Noted Date Diagnosed Date Pain in both feet 05/30/2023 Food insecurity 03/31/2023 Overview: Per [email or web address] Protocol ILD (interstitial lung disease) 04/12/2021 [...] as of this encounter (statuses as of 03/04/2024) Resolved Problems Problem Noted Date Diagnosed Date [...] as of this encounter (statuses as of 03/04/2024) Immunizations Name Administration Dates Next Due COVID-19 [...] encounter Miscellaneous Notes * Telephone Encounter - Leslie Kelly [facility] - 03/04/2024 7:13 AM EDTSigned Prescriptions: Disp Refills valACYclovir HCl 500 MG Oral Tablet (Valtr*90 Tab*1 Sig: TAKE 1TABLET BY MOUTH IN THE MORNING. FOR TRANSMISSION REDUCTION.Authorizing Provider: DESTINY JACOBSEN User: LESLIE KELLY documented in this encounter Plan of Treatment Upcoming Encounters Date Type Department Care Team (Late st Contact Info) Description 03/24/2024 8:30 AM EDT Office Visit Rheumatology [address] [place] [address] Lance Castanon CRNP [address] [place] [address] [place] [address] 03/31/2024 10:30 AM EDT Telemedicine Pharmacy, [facility] [address] [facility] [place] [address] [facility] [place] [address] 04/20/2024 11:25 AM EDT Office Visit [facility], [facility] [place] [address] Natan Collins DO [address] [facility] [place] [phone] 06/28/2024 9:30 AM EDT [facility] [place] [address] [facility] [phone] Destiny Jacobsen [address] [place] [address] Scheduled Procedures Name Priority Associated Diagnoses Date/Ti [...] 12/24/2023, 10/2022, 05/23/2022, Additional history exists GFR 03/01/2025 03/01/2024, 11/2023, 10/28/2023, Additional history exists Albumin/Creatinine Ratio 06/23/2026 023, [...] as of this encounter Visit Diagnoses Diagnosis Oral ulcer Other and unspecified diseases of the oral soft tissues documented in this encounter Advance Directives Documents on File Type Date Recorded Patient [employer] Power of 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
[2024-03-07 12:37] LABS: Basophils # (auto) 0.07 K/uL (0.00-0.20); Basophils % (auto) 0.7 %; Eosinophils # (auto) 0.21 K/uL (0.00-0.50); Eosinophils % (auto) 2.2 %; Hematocrit (blood only) 31.8 % (37.0-47.0); Hemoglobin 10.9 g/dl (12.0-16.0); Immature Granulocytes # (auto) 0.05 K/uL (0.01-0.20); Immature Granulocytes % (auto) 0.5 %; Lymphocytes # (auto) 1.27 K/uL (1.20-3.40); Lymphocytes % (auto) 13.2 %; Mean Corpuscular Hemoglobin 34.6 pg (25.0-34.0); Mean Corpuscular Hgb Conc 34.3 g/dL (32.0-36.0); Mean Platelet Volume 8.1 fL (9.4-12.4); Monocytes # (auto) 0.69 K/uL (0.11-0.59); Monocytes % (auto) 7.2 %; Neutrophils # (auto) 7.31 K/uL (1.40-6.50); Neutrophils % (auto) 76.2 %; Platelet Count 488 K/uL (130-400); RDW Coefficient of Variation 12.7 % (11.5-14.5); RDW Standard Deviation 46.9 fL (36.4-46.3); Red Blood Count 3.15 M/uL (4.20-5.40)
[2024-03-07 12:54] LABS: Albumin Globulin Ratio 1.2 (0.9-2); Albumin Level 3.9 gm/dl (3.4-5.0); BUN Creatinine Ratio 21.8 (10-20); Bilirubin,Total 0.8 mg/dl (0.2-1.0); Calcium 9.3 mg/dl (8.6-10.3); Creatinine Clr Calc Pharmacy 98.1 ml/min; Est GFR (African American) 108.6 ml/min; Est GFR (Non-African American) 93.7 ml/min; Globulin 3.3 gm/dl (2.5-4.0); Potassium 3.8 mmol/L (3.5-5.1); Total Protein 7.2 gm/dl (6.0-8.3)
--- NOTE | 2024-03-07 13:05 | CT Scan Report ---
CT head/brain wo con CLINICAL HISTORY: 73 years-old Female with AMS. Acutely altered mental status TECHNIQUE: Multiple axial CT images of the head were obtained without contrast. A dose lowering tech nique was utilized adhering to the principles of ALARA. CT DOSE: 547.75 mGy.cm COMPARISON: Head CT 01/22/2023 FINDINGS: Motion degraded exam. No acute intracranial hemorrhage, midline shift, intracranial mass, hydrocephal us, territorial ischemia or abnormal extra-axial collection. Involutional changes with white matter h ypodensities suggestive of chronic microvascular ischemic disease. The calvarium is intact. Postoperative changes of the paranasal sinuses. Trace mastoid effusions. Ri ght-sided lens repair. IMPRESSION: No acute intracranial abnormality identified. ACT 112: Negative or not required by law. The above report was generated using voice recognition software. It may contain grammatical, syntax o r spelling errors. Electronically signed by: Jon Man M.D. 03/07/2024 1:03 PM
[2024-03-07] MEDS: SODIUM CHLORIDE 0.9% 1,000 ML IV STA (13:34)
[2024-03-07] MEDS: SODIUM CHLORIDE 0.9% 1,000 ML IV SCH (13:36)
[2024-03-07] MEDS: cefTRIAXone SODIUM 2,000 MG/50 ML BAG IV STA (13:39)
[2024-03-07 13:43] LABS: Magnesium 1.9 mg/dl (1.7-2.4)
--- NOTE | 2024-03-07 14:07 | XRay Report ---
XR chest 1V portable HISTORY: 73 years-old Female weakness COMPARISON: 01/22/2023 TECHNIQUE: AP view of the chest FINDINGS: Cardiac silhouette is mildly enlarged. Mild subsegmental bibasilar densities. Atherosclerosis. No pne umothorax or pleural effusion. Upper abdominal surgical clips. IMPRESSION: Cardiomegaly with mild bibasilar atelectasis. ACT 112: Negative or not required by law. The above report was generated using voice recognition software. It may contain grammatical, syntax o r spelling errors. Electronically signed by: Jon Man M.D. 03/07/2024 2:05 PM
--- NOTE | 2024-03-07 14:51 | Electrocardiogram Report ---
Test Reason : Blood Pressure : / mmHG Vent. Rate : 076 BPM Atrial Rate : 076 BPM P-R Int : 156 ms QRS Dur : 136 ms QT Int : 430 ms P-R-T Axes : 032 -15 003 degrees QTc Int : 483 ms Normal sinus rhythm Right bundle branch block Minimal voltage criteria for LVH, may be normal variant ( R in aVL ) T wave abnormality, consider lateral ischemia Abnormal ECG When compared with ECG of 31-AUG-2023 10:57, T wave inversion now evident in Lateral leads Confirmed by Jacinto Jeronimo ([id number]) on 03/07/2024 2:51:06 PM Referred By: Confirmed By:Jacinto Jeronimo
[2024-03-07 15:28] LABS: Appearance Urine Clear (Clear); Bilirubin Urine Negative (Negative); Blood Urine Negative (Negative); Color Urine Yellow; Glucose Urine UA Negative (Negative); Ketones Urine Negative (Negative); Leukocyte Esterase Urine Negative (Negative); Nitrite Urine Negative (Negative); Protein Urine Negative (Negative); Specific Gravity Urine 1.011 (1.000-1.030); Urobilinogen Urine Negative (Negative); pH Urine 7.5 (4.5-7.5)
[2024-03-07] MEDS ORDERED: ALUMINUM/MAGNESIUM SUSP 30 ML UDC PO PRN (17:21)
[2024-03-07] MEDS ORDERED: DOCUSATE SODIUM 100 MG CAP PO PRN (17:23)
--- NOTE | 2024-03-07 17:41 | History & Physical Report ---
Date of Service March 07, 2024 Assessment & Plan (1) AMS (altered mental status): Plan Right ankle cellulitis Likely metabolic encephalopathy Patient coming in with altered mentation, noted to have right ankle cellulitis Follow admitting blood culture, continue Rocephin, add probiotic. US BLE Doppler to rule out DVT given her immobility. Chronic Hyponatremia: NA 128 today, history of SIADH and psychogenic polydipsia. On sodium tablet. Maintain fluid restriction of 1 point1.5 L a day. CAD: Chronic Mild bilateral intracranial ICA stenosis Continue ASA and rosuvastatin Hypertension losartan stopped last admission due to hypotension. Continue other home medications including atenolol and Lasix. Dyslipidemia: Chronic Takes rosuvastatin; continue Depression: Chronic Wellbutrin and BuSpar; And Cymbalta. Continue. ILD: Chronic Follows with pulmonary; Dr. Stanton TERRELL Takes azathioprine; continue Goals of care: Mosque: Prefers to avoid blood transfusions Open to B12, folate, iron Takes vitamin B12 and folic acid; continue GERD: Chronic Takes omeprazole; continue Lovenox subcu for DVT prophylaxis. History of Present Illness Chief Complaint: altered mentation Primary Care Provider: Uma Mark DO 73-year-old lady with PMH of avulsion fracture of left condyle left tibia/right tibial fracture on bedrest [orthopedics evaluated last admission, nonweightbearing for 2 to 3 months], CAD, HTN, HLD, depression, ILD, Mosque [prefers to avoid blood transfusion], GERD who was discharged about 7 days ago to [facility] on 7 days of Keflex, hence atb will be done today. She comes in from [facility] because of dissatisfaction/poor care/also she was noted to be altered in the late afternoon/evening yesterday at [facility]. Patient denies fever, reports decreased appetite, reports constipation/on laxatives as needed, denies chest pain or cough or sore throat. Patient and her many family members were at bedside, patient was noted to be hallucinating including visual and auditory hallucination yesterday as per the note of family members and patient herself. Patient reports being anxious and was asking for Ativan. We discussed about hydroxyzine use as needed for anxiety as Ativan might increase the risks of confusion in elderly lady with multiple comorbidities while in hospital. Medications were reviewed with patient and her family members in detail at bedside. Plan of care were discussed with patient and her family members in detail. All of the family members voiced understanding and were agreeable to plan of care. Allergies Allergy/AdvReac Type Severity Reaction Status Date / Time diphenhydramine Allergy Intermediate Hallucinati Verified 02/25/24 17:04 [From Benadryl] ng morphine AdvReac Severe Low BP Verified 02/25/24 17:04 gabapentin AdvReac Intermediate swelling Verified 02/25/24 17:04 of lower legs lisinopril AdvReac Intermediate Cough Verified 02/25/24 17:04 pregabalin [From Lyrica] AdvReac Intermediate sweating/ho Verified 02/25/24 17:04 t Home Medications Medication Instructions Recorded Confirmed Type bupropion HCl 150 mg 24 hr tablet, 150 mg PO QAM 07/11/19 03/07/24 History extended release (Wellbutrin XL) buspirone 10 mg tablet 10 mg PO .EVERY 8 HRS 07/11/19 03/07/24 History cholecalciferol (vitamin D3) 125 5,000 unit PO QAM 07/11/19 03/07/24 History mcg (5,000 unit) tablet (Vitamin D3) cyproheptadine 4 mg tablet 8 mg PO HS 07/11/19 03/07/24 History docusate sodium 100 mg capsule 100 mg PO AMHS 07/11/19 03/07/24 History ferrous sulfate 325 mg (65 mg 325 mg PO Q2D 07/11/19 03/07/24 History iron) tablet folic acid 1 mg tablet 1 mg PO QAM 07/11/19 03/07/24 History omeprazole 20 mg capsule,delayed 20 mg PO AMHS 07/11/19 03/07/24 History release atenolol 25 mg tablet 25 mg PO QAM 08/19/22 03/07/24 History levothyroxine 88 mcg tablet 88 mcg PO DAILYBB 08/19/22 03/07/24 History meclizine 12.5 mg tablet 12.5 mg PO TID PRN Dizziness 01/22/23 03/07/24 History ondansetron HCl 4 mg tablet 4 mg PO Q6 PRN Nausea 01/22/23 03/07/24 History valacyclovir 500 mg tablet 500 mg PO QAM 01/22/23 03/07/24 History azathioprine 50 mg tablet 50 mg PO QAM 11/25/23 03/07/24 History azelastine 137 mcg (0.1 %) nasal 1 spray intranasal .Q 12 HRS 02/25/24 03/07/24 History spray aerosol cyanocobalamin (vitamin B-12) 5,000 mcg sublingual DAILY 02/25/24 03/07/24 History 5,000 mcg sublingual tablet (Vitamin B-12) pramipexole 0.25 mg tablet 0.5 mg PO Q8 02/25/24 03/07/24 History vit C 50 mg-E 15 unit-zinc cit 4.5 1 tab PO DAILY 02/25/24 03/07/24 History mg-lutein 2.5 mg-zeaxan chew tablet ([employer]) vitamin B complex 1 tab PO DAILY 02/25/24 03/07/24 History aspirin 81 mg tablet,delayed 81 mg PO DAILY 42 days #0 tabs 02/29/24 03/07/24 Rx release duloxetine 30 mg capsule,delayed 30 mg PO QAM #30 caps 02/29/24 03/07/24 Rx release oxycodone 5 mg tablet See Rx Instructions .Route 02/29/24 03/07/24 Rx .COMPLEX PRN pain #60 tabs acetaminophen 500 mg tablet 1,000 mg PO Q8 03/07/24 03/07/24 History atorvastatin 10 mg tablet 10 mg PO HS 03/07/24 03/07/24 History calcium carbonate 500 mg PO BID 03/07/24 03/07/24 History enoxaparin 40 mg/0.4 mL 40 mg subcut DAILY 03/07/24 03/07/24 History subcutaneous syringe furosemide 20 mg tablet 20 mg PO DAILY 03/07/24 03/07/24 History magnesium oxide 400 mg PO DAILY 03/07/24 03/07/24 History multivitamin 1 tab PO HS 03/07/24 03/07/24 History nystatin 100,000 unit/gram topical 1 applic topical BID 03/07/24 03/07/24 History cream pantoprazole 40 mg tablet,delayed 40 mg PO DAILYBB 03/07/24 03/07/24 History release polyethylene glycol 3350 17 gram 17 g PO TID constipation 03/07/24 03/07/24 History oral powder packet (Miralax) sodium chloride 1 gram tablet 1,000 mg PO BID 03/07/24 03/07/24 History tizanidine 2 mg tablet 2 mg PO Q8 03/07/24 03/07/24 History Past Med/Surg History Problem List Laceration of left knee (Acute) Fracture of proximal end of left tibia (Acute) Fall (Acute) Fracture of proximal end of right tibia (Acute) Right tibial fracture Avulsion fracture of lateral condyle of left tibia 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 Encounter for pre-operative examination Hallucinations, visual (Acute) Acute confusion (Acute) AMS (altered mental status) Fall Polypharmacy (Acute) Status post left knee replacement (~09/2022) Arthritis Myopathy (Acute) Osteoarthritis (Chronic) Chronic pain Hyponatremia (Acute) Hx RLS (restless legs syndrome) Closed fracture of right distal femur 2019 no surgery Anemia (Chronic) HTN (hypertension) (Chronic) controlled, stable per pt Dyslipidemia (Chronic) Hypothyroidism (Chronic) Depression (Chronic) Anxiety (Chronic) Gastroparesis (Chronic) GERD (gastroesophageal reflux disease) (Chronic) controlled symptoms per pt Polymyositis (Chronic) MTX Medical History Seasonal allergies Chronic rhinitis Hiatal hernia h/o of repair in past, and has at present too Neuropathy feet Refusal of blood product d/t gnosticism beliefs Elevated hemidiaphragm right Dysphagia worse with meat, happens on occasion Interstitial lung disease Follows with Dr. Eid/[facility] Hx of migraines History of COVID-19 08/2020, loss taste/smell, body aches, sinus issues > resolved (after sinus surgery) none since History of carotid artery disease mild bilateral intracranial ICA stenoses-head MRA 02/2022 Diverticulitis Hx, 2018 Surgical History Hx of cataract extraction Hx of right cataract extraction will see Dr Huff 08/28/23 for F/U H/O hemorrhoidectomy History of tubal ligation Nausea and vomiting after administration of anesthetic agent Years ago, denies needing scop patch History of esophagogastroduodenoscopy (EGD) Hx of colonoscopy Hx of squamous cell carcinoma excision Excision (head) History of back surgery lumbar Family History Other No significant family history Social History Smoking Status: Unknown if ever smoked Second Hand Exposure: Yes (in past); Do You Dip or Chew Tobacco: No; Hx Alcohol Use: No Hx Substance Use: No Preferred Language: Belarusian Communication Ability: Effective Territory Sales Consultant Required: No Beliefs That Will Affect Care: None Current Living Situation: Alone Current Living Situation Comment: Lives in a mother in law suite Feels Safe at Home: Yes Assistive Devices: Walker Review of Systems Review of Systems: Negative otherwise mentioned in HPI. Physical Exam Physical Exam: Constitutional + well hydrated; no acute distress Eyes PERRL, conjunctivae normal, anicteric sclerae ENMT external ear and nose normal, oropharynx normal Respiratory normal respiratory effort, lungs clear to auscultation Cardiovascular S1 S2 Gastrointestinal (Abdomen) normal bowel sounds, soft, nontender, no hepatosplenomegaly Musculoskeletal Knee immobilizer in place on both knees, Rt ankle erythema noted. Neurologic PERRL, EOMI, accommodation nl, no face palsy, no dysarthria Psychiatric A+Ox3, euthymic affect Results & Data Results & Data Vital Signs (Past 12 Hours) Vital Signs Temp Pulse Resp BP Pulse Ox 03/07/24 12:02 79 03/07/24 11:39 37.9 C H 76 16 198/88 H 97
--- NOTE | 2024-03-07 18:31 | Ultrasound Report ---
BILATERAL LOWER EXTREMITY VENOUS DOPPLER HISTORY: Acute pain and swelling of the lower legs ro dvt COMPARISON STUDY: 05/16/2016 FINDINGS: Subcutaneous edema. There is normal compressibility, flow, and augmentation within the bila teral lower extremity deep venous systems. IMPRESSION: No DVT within the right or left lower extremity. ACT 112: Negative or not required by law. Electronically signed by: Jon Man M.D. 03/07/2024 6:30 PM
[2024-03-07] MEDS: HALOPERIDOL LACTATE 5 MG/ML 1 ML VIAL IV PRN (18:40)
[2024-03-07] MEDS: hydrOXYzine HCl 10 MG TAB PO PRN (18:43)
[2024-03-07] MEDS: hydrOXYzine HCl 25 MG TAB ONE (18:50)
[2024-03-07] MEDS ORDERED: MELATONIN 3 MG TAB PO PRN (20:00)
[2024-03-07] MEDS ORDERED: haloperidoL 0.5 MG TAB PO SCH (21:00)
[2024-03-07] MEDS ORDERED: PANTOprazole 40 MG TAB PO SCH (21:00)
[2024-03-07] MEDS: SODIUM CHLORIDE 1 GM TABLET PO SCH (21:39)
[2024-03-07] MEDS: CYPROHEPTADINE HCL 4 MG TAB PO SCH (21:39)
[2024-03-07] MEDS: CALCIUM CARBONATE 1250MG TAB PO SCH (21:40)
[2024-03-07] MEDS: busPIRone 5 MG TAB PO SCH (21:41)
[2024-03-07] MEDS: ATORVASTATIN 10 MG TAB PO SCH (21:41)
[2024-03-07] MEDS: AZELASTINE HCL 0.1% NASAL 200 SPRAYS/27,400 MCG BTL NAE SCH (21:42)
--- NOTE | 2024-03-07 21:51 | Emergency Department Note ---
Impression & Plan Cellulitis of right leg, Periprosthetic fracture around internal prosthetic knee joint, Hallucinations ED Provider Note CHIEF COMPLAINT: hallucinations HISTORY OF PRESENT ILLNESS: This 73 yo female patient with PMH of bilateral periprosthetic TKA fractures presents to the emergency department from [facility], stating that she has been confused and "seeing things" crawling on the truong, the glove boxes habe a heart beat and the kids have been getting calls at all hours of the day and night. Pt has apparently been in rehab for the last 2 weeks after she was told she will need to be non weight bearing for 2-3 months. Pt's daughter also mentions that she is upset with the care at the rehab and will not send her mother back. This has happened before when the patient's sodium was low. She denies urinary sx, cough, fever, v/d. REVIEW OF SYSTEMS: A review of systems was performed with positives and pertinent negatives listed in the history of present illness. 10 systems were reviewed and are otherwise negative. ALLERGIES: see below MEDICATIONS: see below PMH: see below SOCIAL HISTORY: see below DDx: infectious etiology (UTI/PNA), ICH, stroke, seizure, sundowning, viral illness, med effect among others PHYSICAL EXAM: Vital signs reviewed. General: in no significant distress. HEENT: No scleral icterus, PERRLA, neck supple. Atraumatic. Cardiovascular: Regular rate and rhythm, no extra sounds. Pulmonary: Clear to auscultation bilaterally, normal work of breathing. Abdomen: Soft, nontender, nondistended, positive bowel sounds. Musculoskeletal: Atraumatic, no peripheral edema. Neurologic: Patient awake alert and oriented x 3, speech is clear Skin: Warm, dry, Small area of erythema noted to the lateral aspect of the right malleolus with lymphangitic streaking towards the knee. Abrasion that is well healing noted to the right knee, lacerations with sutures in place to the left knee. No obvious signs of infection. EMERGENCY DEPARTMENT COURSE/MDM: This patient was evaluated and appeared to be in no significant distress. IV access was obtained in laboratory work was drawn. Patient was placed on school lunch monitor and noted to be a normal sinus rhythm. Patient's laboratory work is fairly reassuring. Hemoglobin is 10.9. UA is negative for infection. At CT was performed and reveals no evidence that would cure abnormality. Chest x-ray is clear. Case management was informed of the need for consult. Blood cultures were routine and the patient was medicated with IV ceftriaxone for right lower extremity cellulitis. Hospital service has been contacted to evaluate the patient for the right lower extremity cellulitis and sundowning episodes. She will be evaluated for admission. MONITORING: An order for cardiac monitoring was placed and the patient is noted to be in a NSR beats per minute. RADIOLOGY: Chest x-ray to my interpretation reveals cardiomegaly and atelectasis, no failure. Please refer to radiology over read. Had CT to my interpretation and radiologist over read is negative for acute findings. EKG: to my interpretation reveals the sinus rhythm 76 bpm with a right on branch block LVH, QTC 483 with T wave abnl. 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 Encounter for pre-operative examination Hallucinations, visual (Acute) Acute confusion (Acute) AMS (altered mental status) Fall Polypharmacy (Acute) Status post left knee replacement (~09/2022) Arthritis Myopathy (Acute) Osteoarthritis (Chronic) Chronic pain Hyponatremia (Acute) Hx RLS (restless legs syndrome) Closed fracture of right distal femur 2019 no surgery Anemia (Chronic) HTN (hypertension) (Chronic) controlled, stable per pt Dyslipidemia (Chronic) Hypothyroidism (Chronic) Depression (Chronic) Anxiety (Chronic) Gastroparesis (Chronic) GERD (gastroesophageal reflux disease) (Chronic) controlled symptoms per pt Polymyositis (Chronic) MTX Medical History Seasonal allergies Chronic rhinitis Hiatal hernia h/o of repair in past, and has at present too Neuropathy feet Refusal of blood product d/t hinduism beliefs Elevated hemidiaphragm right Dysphagia worse with meat, happens on occasion Interstitial lung disease Follows with Dr. Eid/[facility] Hx of migraines History of COVID-19 08/2020, loss taste/smell, body aches, sinus issues > resolved (after sinus surgery) none since History of carotid artery disease mild bilateral intracranial ICA stenoses-head MRA 02/2022 Diverticulitis Hx, 2018 Surgical History Hx of cataract extraction Hx of right cataract extraction will see Dr Huff 08/28/23 for F/U H/O hemorrhoidectomy History of tubal ligation Nausea and vomiting after administration of anesthetic agent Years ago, denies needing scop patch History of esophagogastroduodenoscopy (EGD) Hx of colonoscopy Hx of squamous cell carcinoma excision Excision (head) History of back surgery lumbar Family History Other No significant family history Social History Smoking Status: Never smoker Second Hand Exposure: Yes (in past); Do You Dip or Chew Tobacco: No; Hx Alcohol Use: No Hx Substance Use: No Preferred Language: Persian Communication Ability: Effective Datawarehouse 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 Required: No Beliefs That Will Affect Care: None Current Living Situation: Alone Current Living Situation Comment: From [facility] Feels Safe at Home: Yes Assistive Devices: Walker Allergies Allergies Allergy/AdvReac Type Severity Reaction Status Date / Time diphenhydramine Allergy Intermediate Hallucinati Verified 02/25/24 17:04 [From Benadryl] ng morphine AdvReac Severe Low BP Verified 02/25/24 17:04 gabapentin AdvReac Intermediate swelling Verified 02/25/24 17:04 of lower legs lisinopril AdvReac Intermediate Cough Verified 02/25/24 17:04 pregabalin [From Lyrica] AdvReac Intermediate sweating/ho Verified 02/25/24 17:04 t Home Meds Home Medications Medication Instructions Recorded Confirmed bupropion HCl 150 mg 24 hr tablet, 150 mg PO QAM 07/11/19 03/07/24 extended release (Wellbutrin XL) buspirone 10 mg tablet 10 mg PO .EVERY 8 HRS 07/11/19 03/07/24 cholecalciferol (vitamin D3) 125 5,000 unit PO QAM 07/11/19 03/07/24 mcg (5,000 unit) tablet (Vitamin D3) cyproheptadine 4 mg tablet 8 mg PO HS 07/11/19 03/07/24 docusate sodium 100 mg capsule 100 mg PO AMHS 07/11/19 03/07/24 ferrous sulfate 325 mg (65 mg 325 mg PO Q2D 07/11/19 03/07/24 iron) tablet folic acid 1 mg tablet 1 mg PO QAM 07/11/19 03/07/24 omeprazole 20 mg capsule,delayed 20 mg PO AMHS 07/11/19 03/07/24 release atenolol 25 mg tablet 25 mg PO QAM 08/19/22 03/07/24 levothyroxine 88 mcg tablet 88 mcg PO DAILYBB 08/19/22 03/07/24 meclizine 12.5 mg tablet 12.5 mg PO TID PRN Dizziness 01/22/23 03/07/24 ondansetron HCl 4 mg tablet 4 mg PO Q6 PRN Nausea 01/22/23 03/07/24 valacyclovir 500 mg tablet 500 mg PO QAM 01/22/23 03/07/24 azathioprine 50 mg tablet 50 mg PO QAM 11/25/23 03/07/24 azelastine 137 mcg (0.1 %) nasal 1 spray intranasal .Q 12 HRS 02/25/24 03/07/24 spray aerosol cyanocobalamin (vitamin B-12) 5,000 mcg sublingual DAILY 02/25/24 03/07/24 5,000 mcg sublingual tablet (Vitamin B-12) pramipexole 0.25 mg tablet 0.5 mg PO Q8 02/25/24 03/07/24 vit C 50 mg-E 15 unit-zinc cit 4.5 1 tab PO DAILY 02/25/24 03/07/24 mg-lutein 2.5 mg-zeaxan chew tablet ([facility]) vitamin B complex 1 tab PO DAILY 02/25/24 03/07/24 acetaminophen 500 mg tablet 1,000 mg PO Q8 03/07/24 03/07/24 atorvastatin 10 mg tablet 10 mg PO HS 03/07/24 03/07/24 calcium carbonate 500 mg PO BID 03/07/24 03/07/24 enoxaparin 40 mg/0.4 mL 40 mg subcut DAILY 03/07/24 03/07/24 subcutaneous syringe furosemide 20 mg tablet 20 mg PO DAILY 03/07/24 03/07/24 magnesium oxide 400 mg PO DAILY 03/07/24 03/07/24 multivitamin 1 tab PO HS 03/07/24 03/07/24 nystatin 100,000 unit/gram topical 1 applic topical BID 03/07/24 03/07/24 cream pantoprazole 40 mg tablet,delayed 40 mg PO DAILYBB 03/07/24 03/07/24 release polyethylene glycol 3350 17 gram 17 g PO TID constipation 03/07/24 03/07/24 oral powder packet (Miralax) sodium chloride 1 gram tablet 1,000 mg PO BID 03/07/24 03/07/24 tizanidine 2 mg tablet 2 mg PO Q8 03/07/24 03/07/24 Previous Rx's Medication Instructions Recorded aspirin 81 mg tablet,delayed 81 mg PO DAILY 42 days #0 tabs 02/29/24 release duloxetine 30 mg capsule,delayed 30 mg PO QAM #30 caps 02/29/24 release oxycodone 5 mg tablet See Rx Instructions .Route 02/29/24 .COMPLEX PRN pain #60 tabs Results & Data (ED) Vital Signs Vital Signs - 24 hr 03/07/24 11:39 03/07/24 12:02 03/07/24 12:08 Temperature 37.9 C H Temperature Source Oral Pulse Rate 76 79 Pulse Rate from SpO2 Sensor 78 Respiratory Rate 16 27 H Respiratory Effort / Characteristics Non-Labored Blood Pressure 198/88 H Blood Pressure Mean 124 Pulse Oximetry 97 97 Sepsis Recent Fever Within 48 Hours Yes Sepsis New/Unexplained Change in Mental Status No Sepsis Action Taken by Nursing No Action Required 03/07/24 12:47 03/07/24 12:50 03/07/24 13:01 Temperature Temperature Source Pulse Rate 68 70 Pulse Rate from SpO2 Sensor 70 69 Respiratory Rate 27 H 30 H Respiratory Effort / Characteristics Blood Pressure 117/92 Blood Pressure Mean 110 Pulse Oximetry 97 98 Sepsis Recent Fever Within 48 Hours Sepsis New/Unexplained Change in Mental Status Sepsis Action Taken by Nursing 03/07/24 13:11 03/07/24 13:45 03/07/24 14:06 Temperature Temperature Source Pulse Rate 71 69 67 Pulse Rate from SpO2 Sensor 72 70 69 Respiratory Rate 17 23 20 Respiratory Effort / Characteristics Blood Pressure Blood Pressure Mean Pulse Oximetry 97 99 99 Sepsis Recent Fever Within 48 Hours Sepsis New/Unexplained Change in Mental Status Sepsis Action Taken by Nursing 03/07/24 14:33 03/07/24 15:00 03/07/24 15:36 Temperature Temperature Source Pulse Rate 65 78 75 Pulse Rate from SpO2 Sensor 65 77 75 Respiratory Rate 20 23 21 Respiratory Effort / Characteristics Blood Pressure Blood Pressure Mean Pulse Oximetry 97 100 98 Sepsis Recent Fever Within 48 Hours Sepsis New/Unexplained Change in Mental Status Sepsis Action Taken by Nursing 03/07/24 16:03 03/07/24 16:45 03/07/24 17:15 Temperature Temperature Source Pulse Rate 76 72 66 Pulse Rate from SpO2 Sensor 77 73 Respiratory Rate 28 H 17 23 Respiratory Effort / Characteristics Blood Pressure Blood Pressure Mean Pulse Oximetry 97 97 Sepsis Recent Fever Within 48 Hours Sepsis New/Unexplained Change in Mental Status Sepsis Action Taken by [facility] Medications Current Medication List: was personally reviewed by me Laboratory Data Attestation: I reviewed the patient's lab results. 03/09/24 06:11 03/09/24 06:11 Lab Results 03/07/24 Range/Units 12:14 WBC 9.60 (4.8-10.8) K/ul RBC 3.15 L (4.20-5.40) M/uL Hgb 10.9 L (12.0-16.0) g/dl Hct 31.8 L (37.0-47.0) % MCV 101.0 H (80.0-100.0) fL MCH 34.6 H (25.0-34.0) pg MCHC 34.3 (32.0-36.0) g/dL RDW Std Deviation 46.9 H (36.4-46.3) fL RDW Coeff of Alo 12.7 (11.5-14.5) % Plt Count 488 H (130-400) K/uL MPV 8.1 L (9.4-12.4) fL Immature Gran % (Auto) 0.5 % Neut % (Auto) 76.2 % Lymph % (Auto) 13.2 % [place] % (Auto) 7.2 % Eos % (Auto) 2.2 % Baso % (Auto) 0.7 % Neut # (Auto) 7.31 H (1.40-6.50) K/uL Lymph # (Auto) 1.27 (1.20-3.40) K/uL [place] # (Auto) 0.69 H (0.11-0.59) K/uL Eos # (Auto) 0.21 (0.00-0.50) K/uL Baso # (Auto) 0.07 (0.00-0.20) K/uL Immature Gran # (Auto) 0.05 (0.01-0.20) K/uL Sodium 128 L (136-145) mmol/L Potassium 3.8 (3.5-5.1) mmol/L Chloride 93 L (98-107) mmol/L Carbon Dioxide 26 (21-32) mmol/L Anion Gap 9 (3-11) BUN 12 (6-23) mg/dl Creatinine 0.55 L (0.6-1.2) mg/dl Est Cr Clr Drug Dosing 98.1 ml/min Est GFR ( Amer) 108.6 ml/min Est GFR (Non-Af Amer) 93.7 ml/min BUN/Creatinine Ratio 21.8 H (10-20) Glucose 150 H (70-99(Fasting)) mg/dl Calcium 9.3 (8.6-10.3) mg/dl Magnesium 1.9 (1.7-2.4) mg/dl Total Bilirubin 0.8 (0.2-1.0) mg/dl AST 37 (13-39) U/L ALT 21 (7-52) U/L Alkaline Phosphatase 86 (34-104) U/L Troponin I High Sens 17.0 H (0-14) pg/ml Total Protein 7.2 (6.0-8.3) gm/dl Albumin 3.9 (3.4-5.0) gm/dl Globulin 3.3 (2.5-4.0) gm/dl Albumin/Globulin Ratio 1.2 (0.9-2) Administered Medications Acetaminophen (Acetaminophen 325 Mg Tab) 650 mg PO Q4H PRN PRN Reason: Pain or Fever Stop: 04/06/24 17:20 Last Admin: 03/09/24 08:13 Dose: 650 mg Documented By: Admin: 03/09/24 03:56 Dose: 650 mg Documented By: Admin: 03/08/24 21:24 Dose: 650 mg Documented By: Admin: 03/08/24 12:41 Dose: 650 mg Documented By: Admin: 03/08/24 03:18 Dose: 650 mg Documented By: ESTEPHANIA Aspirin (Aspirin 81 Mg Ectab) 81 mg PO DAILY [facility] Stop: 04/07/24 08:59 Last Admin: 03/09/24 08:08 Dose: 81 mg Documented By: Admin: 03/08/24 10:06 Dose: 81 mg Documented By: MARTHA Atenolol (Atenolol 25 Mg Tablet) 25 mg PO [facility] Stop: 04/08/24 08:59 Last Admin: 03/09/24 08:09 Dose: 25 mg Documented By: BERNIE Atorvastatin Calcium (Atorvastatin 10 Mg Tab) 10 mg PO HS [facility] Stop: 04/06/24 20:59 Last Admin: 03/08/24 20:13 Dose: 10 mg Documented By: Admin: 03/07/24 21:41 Dose: 10 mg Documented By: Azathioprine (Azathioprine 50 Mg Tab) 50 mg PO [facility] Stop: 04/07/24 08:59 Last Admin: 03/09/24 08:10 Dose: 50 mg Documented By: [facility] Admin: 03/08/24 09:22 Dose: 50 mg Documented By: MARTHA Azelastine HCl (Azelastine Hcl 0.1% Nasal 200 Sprays/27,400 Mcg Btl) 1 sprays JOSE LUIS BID [facility] Stop: 04/06/24 20:59 Last Admin: 03/09/24 08:06 Dose: Not Given Documented By: [facility] Admin: 03/08/24 20:22 Dose: Not Given Documented By: Admin: 03/08/24 09:23 Dose: Not Given Documented By: Admin: 03/07/24 21:42 Dose: Not Given Documented By: Bupropion HCl (Bupropion Xl 150 Mg Tabcr) 150 mg PO [facility] Stop: 04/07/24 08:59 Last Admin: 03/09/24 08:09 Dose: 150 mg Documented By: [facility] Admin: 03/08/24 10:06 Dose: 150 mg Documented By: MARTHA Buspirone HCl (Buspirone 5 Mg Tab) 10 mg PO TID [facility] Stop: 04/06/24 20:59 Last Admin: 03/09/24 08:08 Dose: 10 mg Documented By: Admin: 03/08/24 22:08 Dose: 10 mg Documented By: Admin: 03/08/24 15:04 Dose: 10 mg Documented By: Admin: 03/08/24 09:22 Dose: 10 mg Documented By: Admin: 03/07/24 21:41 Dose: 10 mg Documented By: Calcium Carbonate (Calcium Carbonate 1250mg Tab) 1 tab PO BID [facility] Stop: 04/06/24 20:59 Last Admin: 03/09/24 08:09 Dose: 1 tab Documented By: Admin: 03/08/24 20:13 Dose: 1 tab Documented By: Admin: 03/08/24 09:22 Dose: 1 tab Documented By: Admin: 03/07/24 21:40 Dose: 1 tab Documented By: Cyanocobalamin (Cyanocobalamin (B-12) 2,500 Mcg Tablet) 5,000 mcg SL DAILY [facility] Stop: 04/07/24 08:59 Last Admin: 03/09/24 08:11 Dose: 5,000 mcg Documented By: Admin: 03/08/24 10:05 Dose: 5,000 mcg Documented By: MARTHA Cyproheptadine HCl (Cyproheptadine Hcl 4 Mg Tab) 8 mg PO HS [facility] Stop: 04/06/24 20:59 Last Admin: 03/08/24 20:13 Dose: 8 mg Documented By: Admin: 03/07/24 21:39 Dose: 8 mg Documented By: Duloxetine HCl (Duloxetine Hcl 60 Mg Cap) 60 mg PO QAM [facility] Stop: 03/10/24 09:01 Last Admin: 03/09/24 08:08 Dose: 60 mg Documented By: BERNIE Enoxaparin Sodium (Enoxaparin Inj 40 Mg/0.4 Ml Syr) 40 mg SQ DAILY [facility] Stop: 04/07/24 08:59 Last Admin: 03/09/24 08:14 Dose: 40 mg Documented By: Admin: 03/08/24 10:04 Dose: 40 mg Documented By: MARTHA Furosemide (Furosemide 20 Mg Tab) 20 mg PO DAILY [facility] Stop: 04/07/24 08:59 Last Admin: 03/09/24 08:11 Dose: 20 mg Documented By: Admin: 03/08/24 10:06 Dose: 20 mg Documented By: AM Haloperidol Lactate (Haloperidol Lactate 5 Mg/Ml 1 Ml Vial) 2.5 mg IV Q8H PRN PRN Reason: hallucination/agitation Stop: 04/06/24 17:15 Last Admin: 03/07/24 18:40 Dose: 2.5 mg Documented By: ARS Hydroxyzine HCl (Hydroxyzine Hcl 10 Mg Tab) 10 mg PO Q8H PRN PRN Reason: Anxiety/Agitation Stop: 04/06/24 17:15 Last Admin: 03/08/24 20:13 Dose: 10 mg Documented By: Admin: 03/08/24 02:40 Dose: 10 mg Documented By: Admin: 03/07/24 18:43 Dose: 10 mg Documented By: HUNTER Ceftriaxone Sodium (Rocephin) 2,000 mg in 50 mls @ 100 mls/hr IV Q24H [facility] Stop: 03/15/24 13:59 Last Infusion: 03/08/24 18:10 Dose: Infused Documented By: Admin: 03/08/24 17:32 Dose: 100 mls/hr Documented By: AM Lactobacillus Acidophilus (Advanced Probiotic 625 Mg Capsule) 1,250 mg PO DAILY [facility] Stop: 04/07/24 08:59 Last Admin: 03/09/24 08:07 Dose: 1,250 mg Documented By: Admin: 03/08/24 10:06 Dose: 1,250 mg Documented By: AM Lorazepam (Lorazepam 0.5 Mg Tab) 0.5 mg PO 0800,1400 [facility] Stop: 04/08/24 07:59 Last Admin: 03/09/24 08:16 Dose: 0.5 mg Documented By: BERNIE Lorazepam (Lorazepam 1 Mg Tab) 1 mg PO HS [facility] Stop: 04/07/24 20:59 Last Admin: 03/08/24 22:08 Dose: 1 mg Documented By: KIRBY Losartan Potassium (Losartan Potassium 50 Mg Tab) 50 mg PO BID [facility] Stop: 04/07/24 08:59 Last Admin: 03/09/24 08:12 Dose: 50 mg Documented By: Admin: 03/08/24 20:13 Dose: 50 mg Documented By: Admin: 03/08/24 10:08 Dose: 50 mg Documented By: AM Magnesium Oxide (Magnesium Oxide 400 Mg Tab) 400 mg PO DAILY [facility] Stop: 04/07/24 08:59 Last Admin: 03/09/24 08:07 Dose: 400 mg Documented By: Admin: 03/08/24 10:06 Dose: 400 mg Documented By: AM Melatonin (Melatonin 3 Mg Tab) 6 mg PO 1999 [facility] Stop: 04/07/24 19:59 Last Admin: 03/08/24 20:13 Dose: 6 mg Documented By: AMM Multivitamins/Minerals (Cerovite Adv Formula Tab) 1 tab PO DAILY [facility] Stop: 04/07/24 08:59 Last Admin: 03/09/24 08:12 Dose: 1 tab Documented By: Admin: 03/08/24 10:08 Dose: 1 tab Documented By: AM Nystatin (Nystatin Powder 15gm Btl) 1 appln EXT BID [facility] Stop: 04/07/24 20:59 Last Admin: 03/09/24 08:22 Dose: 1 appln Documented By: [facility] Admin: 03/08/24 23:27 Dose: Not Given Documented By: KIRBY Olanzapine (Olanzapine 2.5 Mg Tab) 2.5 mg PO Q8H PRN PRN Reason: Agitation Stop: 04/06/24 21:51 Last Admin: 03/08/24 22:58 Dose: 2.5 mg Documented By: Admin: 03/07/24 22:21 Dose: 2.5 mg Documented By: ARAM Pantoprazole Sodium (Pantoprazole 40 Mg Tab) 40 mg PO DAILYBB [facility] Stop: 04/07/24 06:29 Last Admin: 03/09/24 06:13 Dose: 40 mg Documented By: Admin: 03/08/24 05:39 Dose: 40 mg Documented By: ZACH Polyethylene Glycol (Polyethylene (Miralax) 17 Gm Pack) 17 gm PO DAILY [facility] Stop: 04/07/24 09:44 Last Admin: 03/09/24 08:16 Dose: 17 gm Documented By: Admin: 03/08/24 12:39 Dose: 17 gm Documented By: MARTHA Pramipexole Dihydrochloride (Pramipexole Dihydrochlo 0.5 Mg Tab) 0.5 mg PO Q8 [facility] Stop: 04/06/24 21:59 Last Admin: 03/09/24 06:13 Dose: 0.5 mg Documented By: Admin: 03/08/24 22:08 Dose: 0.5 mg Documented By: Admin: 03/08/24 15:05 Dose: 0.5 mg Documented By: Admin: 03/08/24 05:39 Dose: 0.5 mg Documented By: Admin: 03/07/24 22:21 Dose: 0.5 mg Documented By: ARAM Sodium Chloride (Sodium Chloride 1 Gm Tablet) 1 gm PO BID [facility] Stop: 04/06/24 20:59 Last Admin: 03/09/24 08:08 Dose: 1 gm Documented By: Admin: 03/08/24 20:13 Dose: 1 gm Documented By: Admin: 03/08/24 09:21 Dose: 1 gm Documented By: Admin: 03/07/24 21:39 Dose: 1 gm Documented By: Valacyclovir HCl (Valacyclovir Hcl 500 Mg Tablet) 500 mg PO [facility] Stop: 04/07/24 08:59 Last Admin: 03/09/24 08:13 Dose: 500 mg Documented By: Admin: 03/08/24 10:07 Dose: 500 mg Documented By: MARTHA Vitamin D (Cholecalciferol 125 Mcg (5,000 Units) Tab) 125 mcg PO [facility] Stop: 04/07/24 08:59 Last Admin: 03/09/24 08:11 Dose: 125 mcg Documented By: Admin: 03/08/24 10:07 Dose: 125 mcg Documented By: MARTHA Discontinued Medications Atenolol (Atenolol 25 Mg Tablet) 25 mg PO NOW STA Stop: 03/08/24 04:30 Last Admin: 03/08/24 04:45 Dose: 25 mg Documented By: ZACH Duloxetine HCl (Duloxetine Hcl 30 Mg Cap) 30 mg PO [facility] Stop: 04/07/24 08:59 Last Admin: 03/08/24 10:05 Dose: 30 mg Documented By: MARTHA Gadobutrol (Gadobutrol 65ml Vial) 9 ml IV ONCE ONE Stop: 03/08/24 13:59 Last Admin: 03/08/24 13:58 Dose: 9 ml Documented By: NO Hydroxyzine HCl (Hydroxyzine Hcl 25 Mg Tab) Confirm Administered Dose 25 mg .ROUTE .STK-MED ONE Stop: 03/07/24 18:39 Last Admin: 03/07/24 18:50 Dose: Not Given Documented By: HUNTER Sodium Chloride (Nss) 1,000 mls @ 125 mls/hr IV .Q8H [facility] Stop: 03/07/24 20:44 Last Admin: 03/07/24 13:36 Dose: Not Given Documented By: HUNTER Ceftriaxone Sodium (Rocephin) 2,000 mg in 50 mls @ 100 mls/hr IV NOW STA Stop: 03/07/24 13:47 Last Infusion: 03/07/24 23:09 Dose: Infused Documented By: Admin: 03/07/24 13:39 Dose: 100 mls/hr Documented By: HUNTER Sodium Chloride (Nss) 1,000 mls @ 100 mls/hr IV .Q10H STA Stop: 03/07/24 23:18 Last Infusion: 03/08/24 02:21 Dose: Infused Documented By: Admin: 03/07/24 13:34 Dose: 100 mls/hr Documented By: HUNTER Lorazepam 0.5 mg/ Syringe 0.5 mls @ 2 mls/min IV NOW STA Stop: 03/08/24 11:36 Last Admin: 03/08/24 12:39 Dose: 2 mls/min Documented By: MARTHA Oxycodone HCl (Oxycodone Hcl Ir 5 Mg Tab (Immediate Release)) 5 - 10 mg PO Q4H PRN PRN Reason: pain Stop: 03/21/24 17:22 Last Admin: 03/08/24 02:40 Dose: 5 mg Documented By: Admin: 03/07/24 22:54 Dose: 5 mg Documented By: ARAM Imaging Data Radiologist's Impression: Chest X-Ray 03/07/24 12:37 XR chest 1V portable HISTORY: 73 years-old Female weakness COMPARISON: 01/22/2023 TECHNIQUE: AP view of the chest FINDINGS: Cardiac silhouette is mildly enlarged. Mild subsegmental bibasilar densities. Atherosclerosis. No pneumothorax or pleural effusion. Upper abdominal surgical clips. IMPRESSION: Cardiomegaly with mild bibasilar atelectasis. ACT 112: Negative or not required by law. The above report was generated using voice recognition software. It may contain grammatical, syntax or spelling errors. Electronically signed by: Jon Man M.D. 03/07/2024 2:[address] 03/07/24 12:38 CT head/brain wo con CLINICAL HISTORY: 73 years-old Female with AMS. Acutely altered mental status TECHNIQUE: Multiple axial CT images of the head were obtained without contrast. A dose lowering technique was utilized adhering to the principles of ALARA. CT DOSE: 547.75 mGy.cm COMPARISON: Head CT 01/22/2023 FINDINGS: Motion degraded exam. No acute intracranial hemorrhage, midline shift, intracranial mass, hydrocephalus, territorial ischemia or abnormal extra-axial collection. Involutional changes with white matter hypodensities suggestive of chronic microvascular ischemic disease. The calvarium is intact. Postoperative changes of the paranasal sinuses. Trace mastoid effusions. Right-sided lens repair. IMPRESSION: No acute intracranial abnormality identified. ACT 112: Negative or not required by law. The above report was generated using voice recognition software. It may contain grammatical, syntax or spelling errors. Electronically signed by: Jon Man M.D. 03/07/2024 1:03 PM Venous Doppler Study 03/07/24 17:16 BILATERAL LOWER EXTREMITY VENOUS DOPPLER HISTORY: Acute pain and swelling of the lower legs ro dvt COMPARISON STUDY: 05/16/2016 FINDINGS: Subcutaneous edema. There is normal compressibility, flow, and augmentation within the bilateral lower extremity deep venous systems. IMPRESSION: No DVT within the right or left lower extremity. ACT 112: Negative or not required by law. Electronically signed by: Jon Man M.D. 03/07/2024 6:30 PM Discharge Plan Visit Data Chief Complaint: Abnormal Labs/Diagnostic Testing ED Provider: Analia Steen Discharge Problem: Cellulitis of right leg, Periprosthetic fracture around internal prosthetic knee joint, Hallucinations Patient Disposition: Admitted As Inpatient Discharge Instructions Interventions: ED Discharge Assessment Last Done: 03/08/24 01:07
[2024-03-07] MEDS ORDERED: tiZANidine HCL 4 MG TABLET PO SCH (22:00)
[2024-03-07] MEDS: PRAMIPEXOLE DIHYDROCHLO 0.5 MG TAB PO SCH (22:21)
[2024-03-07] MEDS: OLANZAPINE 2.5 MG TAB PO PRN (22:21)
[2024-03-07] MEDS: oxyCODONE HCL IR 5 MG TAB (IMMEDIATE RELEASE) PO PRN (22:54)
[2024-03-08] MEDS: ACETAMINOPHEN 325 MG TAB PO PRN (03:18)
[2024-03-08] MEDS: ATENOLOL 25 MG TABLET PO STA (04:45)
[2024-03-08] MEDS: PANTOprazole 40 MG TAB PO SCH (05:39)
[2024-03-08 08:07] LABS: Hemoglobin 10.1 g/dl (12.0-16.0); Mean Corpuscular Hemoglobin 34.4 pg (25.0-34.0); Mean Corpuscular Hgb Conc 33.7 g/dL (32.0-36.0); Mean Platelet Volume 8.1 fL (9.4-12.4); Platelet Count 461 K/uL (130-400); RDW Coefficient of Variation 12.7 % (11.5-14.5); RDW Standard Deviation 47.1 fL (36.4-46.3); Red Blood Count 2.94 M/uL (4.20-5.40); White Blood Count 9.97 K/ul (4.8-10.8)
[2024-03-08 08:27] LABS: BUN Creatinine Ratio 20.5 (10-20); Calcium 9.4 mg/dl (8.6-10.3); Est GFR (African American) 116.9 ml/min; Est GFR (Non-African American) 100.8 ml/min; Phosphorus 3.2 mg/dl (2.5-4.9); Potassium 3.5 mmol/L (3.5-5.1)
[2024-03-08] MEDS ORDERED: ATENOLOL 25 MG TABLET PO SCH (09:00)
[2024-03-08] MEDS: azaTHIOprine 50 MG TAB PO SCH (09:22)
[2024-03-08] MEDS: ENOXAPARIN INJ 40 MG/0.4 ML SYR SQ SCH (10:04)
[2024-03-08] MEDS: CYANOCOBALAMIN (B-12) 2,500 MCG TABLET SL SCH (10:05)
[2024-03-08] MEDS: DULoxetine HCL 30 MG CAP PO SCH (10:05)
[2024-03-08] MEDS: buPROPion XL 150 MG TABCR PO SCH (10:06)
[2024-03-08] MEDS: MAGNESIUM OXIDE 400 MG TAB PO SCH (10:06)
[2024-03-08] MEDS: ASPIRIN 81 MG ECTAB PO SCH (10:06)
[2024-03-08] MEDS: FUROSEMIDE 20 MG TAB PO SCH (10:06)
[2024-03-08] MEDS: ADVANCED PROBIOTIC 625 MG CAPSULE PO SCH (10:06)
[2024-03-08] MEDS: CHOLECALCIFEROL 125 MCG (5,000 UNITS) TAB PO SCH (10:07)
[2024-03-08] MEDS: valACYclovir HCL 500 MG TABLET PO SCH (10:07)
[2024-03-08] MEDS: CEROVITE ADV FORMULA TAB PO SCH (10:08)
[2024-03-08] MEDS: LOSARTAN POTASSIUM 50 MG TAB PO SCH (10:08)
[2024-03-08 11:35] LABS: Thyroid Stimulating Hormone 1.864 uIu/ml (0.300-4.500)
[2024-03-08] MEDS ORDERED: LORazepam 0.25 MG in SYRINGE 0.125 ML IV ONE (11:45)
--- NOTE | 2024-03-08 12:01 | Orthopedic Consultation ---
Date of Service March 08, 2024 Assessment & Plan (1) Fracture of proximal end of left tibia: We can remove the sutures on the left knee today. I do not see any signs of infection at this point. She is currently on ceftriaxone and should continue that. I do want to make sure that we do not get an infection of the left knee. We will get x-rays of each knee. I called radiology and gave instructions on the x-rays. She will be in knee immobilizers on both legs for close to 3 months. Unfortunately I cannot start any early ambulation or range of motion with these fracture patterns. I am awaiting the x-rays. (2) Fracture of proximal end of right tibia: History of Present Illness Reason for Consultation: 2 weeks status post bilateral periprosthetic knee fractures with altered mental status. Requesting Physician: . Attending Physician: García Woods MD Philip is a 73-year-old female who is now 2 weeks status post a fall in which she sustained bilateral periprosthetic proximal tibia fractures. The right knee is fractured transversely at the stem and the left knee has a fracture of the tibial tuberosity. There was no abrasion on the left knee which was closed with sutures. She has knee immobilizers on each knee and has been instructed to be nonweightbearing. She did go to [facility]. Unfortunately, the family was not happy with her care at [facility] and they were noticing some mental status changes. She was admitted to the hospitalist service. Orthopedics was consulted for 2-week evaluation of both knees.. Allergies Allergy/AdvReac Type Severity Reaction Status Date / Time diphenhydramine Allergy Intermediate Hallucinati Verified 02/25/24 17:04 [From Benadryl] ng morphine AdvReac Severe Low BP Verified 02/25/24 17:04 gabapentin AdvReac Intermediate swelling Verified 02/25/24 17:04 of lower legs lisinopril AdvReac Intermediate Cough Verified 02/25/24 17:04 pregabalin [From Lyrica] AdvReac Intermediate sweating/ho Verified 02/25/24 17:04 t Home Medications Medication Instructions Recorded Confirmed Type bupropion HCl 150 mg 24 hr tablet, 150 mg PO QAM 07/11/19 03/07/24 History extended release (Wellbutrin XL) buspirone 10 mg tablet 10 mg PO .EVERY 8 HRS 07/11/19 03/07/24 History cholecalciferol (vitamin D3) 125 5,000 unit PO QAM 07/11/19 03/07/24 History mcg (5,000 unit) tablet (Vitamin D3) cyproheptadine 4 mg tablet 8 mg PO HS 07/11/19 03/07/24 History docusate sodium 100 mg capsule 100 mg PO AMHS 07/11/19 03/07/24 History ferrous sulfate 325 mg (65 mg 325 mg PO Q2D 07/11/19 03/07/24 History iron) tablet folic acid 1 mg tablet 1 mg PO QAM 07/11/19 03/07/24 History omeprazole 20 mg capsule,delayed 20 mg PO AMHS 07/11/19 03/07/24 History release atenolol 25 mg tablet 25 mg PO QAM 08/19/22 03/07/24 History levothyroxine 88 mcg tablet 88 mcg PO DAILYBB 08/19/22 03/07/24 History meclizine 12.5 mg tablet 12.5 mg PO TID PRN Dizziness 01/22/23 03/07/24 History ondansetron HCl 4 mg tablet 4 mg PO Q6 PRN Nausea 01/22/23 03/07/24 History valacyclovir 500 mg tablet 500 mg PO QAM 01/22/23 03/07/24 History azathioprine 50 mg tablet 50 mg PO QAM 11/25/23 03/07/24 History azelastine 137 mcg (0.1 %) nasal 1 spray intranasal .Q 12 HRS 02/25/24 03/07/24 History spray aerosol cyanocobalamin (vitamin B-12) 5,000 mcg sublingual DAILY 02/25/24 03/07/24 History 5,000 mcg sublingual tablet (Vitamin B-12) pramipexole 0.25 mg tablet 0.5 mg PO Q8 02/25/24 03/07/24 History vit C 50 mg-E 15 unit-zinc cit 4.5 1 tab PO DAILY 02/25/24 03/07/24 History mg-lutein 2.5 mg-zeaxan chew tablet ([facility]) vitamin B complex 1 tab PO DAILY 02/25/24 03/07/24 History aspirin 81 mg tablet,delayed 81 mg PO DAILY 42 days #0 tabs 02/29/24 03/07/24 Rx release duloxetine 30 mg capsule,delayed 30 mg PO QAM #30 caps 02/29/24 03/07/24 Rx release oxycodone 5 mg tablet See Rx Instructions .Route 02/29/24 03/07/24 Rx .COMPLEX PRN pain #60 tabs acetaminophen 500 mg tablet 1,000 mg PO Q8 03/07/24 03/07/24 History atorvastatin 10 mg tablet 10 mg PO HS 03/07/24 03/07/24 History calcium carbonate 500 mg PO BID 03/07/24 03/07/24 History enoxaparin 40 mg/0.4 mL 40 mg subcut DAILY 03/07/24 03/07/24 History subcutaneous syringe furosemide 20 mg tablet 20 mg PO DAILY 03/07/24 03/07/24 History magnesium oxide 400 mg PO DAILY 03/07/24 03/07/24 History multivitamin 1 tab PO HS 03/07/24 03/07/24 History nystatin 100,000 unit/gram topical 1 applic topical BID 03/07/24 03/07/24 History cream pantoprazole 40 mg tablet,delayed 40 mg PO DAILYBB 03/07/24 03/07/24 History release polyethylene glycol 3350 17 gram 17 g PO TID constipation 03/07/24 03/07/24 History oral powder packet (Miralax) sodium chloride 1 gram tablet 1,000 mg PO BID 03/07/24 03/07/24 History tizanidine 2 mg tablet 2 mg PO Q8 03/07/24 03/07/24 History Past Med/Surg History Problem List Laceration of left knee (Acute) Fracture of proximal end of left tibia (Acute) Fall (Acute) Fracture of proximal end of right tibia (Acute) Right tibial fracture Avulsion fracture of lateral condyle of left tibia 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 Encounter for pre-operative examination Hallucinations, visual (Acute) Acute confusion (Acute) AMS (altered mental status) Fall Polypharmacy (Acute) Status post left knee replacement (~09/2022) Arthritis Myopathy (Acute) Osteoarthritis (Chronic) Chronic pain Hyponatremia (Acute) Hx RLS (restless legs syndrome) Closed fracture of right distal femur 2019 no surgery Anemia (Chronic) HTN (hypertension) (Chronic) controlled, stable per pt Dyslipidemia (Chronic) Hypothyroidism (Chronic) Depression (Chronic) Anxiety (Chronic) Gastroparesis (Chronic) GERD (gastroesophageal reflux disease) (Chronic) controlled symptoms per pt Polymyositis (Chronic) MTX Medical History Seasonal allergies Chronic rhinitis Hiatal hernia h/o of repair in past, and has at present too Neuropathy feet Refusal of blood product d/t rastafarian beliefs Elevated hemidiaphragm right Dysphagia worse with meat, happens on occasion Interstitial lung disease Follows with Dr. Eid/Hazel Hx of migraines History of COVID-19 08/2020, loss taste/smell, body aches, sinus issues > resolved (after sinus surgery) none since History of carotid artery disease mild bilateral intracranial ICA stenoses-head MRA 02/2022 Diverticulitis Hx, 2018 Surgical History Hx of cataract extraction Hx of right cataract extraction will see Dr Huff 08/28/23 for F/U H/O hemorrhoidectomy History of tubal ligation Nausea and vomiting after administration of anesthetic agent Years ago, denies needing scop patch History of esophagogastroduodenoscopy (EGD) Hx of colonoscopy Hx of squamous cell carcinoma excision Excision (head) History of back surgery lumbar Family History Other No significant family history Social History Smoking Status: Never smoker Second Hand Exposure: Yes (in past); Do You Dip or Chew Tobacco: No; Hx Alcohol Use: No Hx Substance Use: No Preferred Language: [place]se Communication Ability: Effective Soaking Room Operator Required: No Beliefs That Will Affect Care: None Current Living Situation: Alone Current Living Situation Comment: From [facility] Feels Safe at Home: Yes Assistive Devices: Walker Review of Systems All systems reviewed & are unremarkable except as noted in HPI & below. Physical Exam On physical examination of the left knee, the knee immobilizer is in place. The incision is healed. Sutures are ready for removal. There is no signs of infection. There is no effusion of the knee. Physical examination of the right knee shows an anterior abrasion without signs of infection. She has a knee immobilizer in place. She has ecchymosis on both legs.. Constitutional WD/WN, vitals as above Eyes PERRL, conjunctivae normal, anicteric sclerae ENMT external ear and nose normal, oropharynx normal Neck trachea midline, no thyromegaly Respiratory normal respiratory effort Cardiovascular RRR, no murmur, no edema Gastrointestinal (Abdomen) normal bowel sounds, soft, nontender, no hepatosplenomegaly Psychiatric A+Ox3, euthymic affect Results & Data Results & Data Laboratory Results . Diagnostic Findings . PG Care Time/CCT Total # of Minutes Spent Total Time Spent with Patient: Total time spent is greater than 50% in coordination of care (as documented) at patient's floor/unit and/or counseling patient: Coding Level of Care Code 91514 IN/OBS CONSULT LVL 4,60M Diagnoses Fracture of proximal end of left tibia S82.102A Encounter type: initial encounter Fracture morphology: unspecified fracture morphology Fracture type: open Fracture of proximal end of right tibia S82.101A Encounter type: initial encounter Fracture morphology: unspecified fracture morphology Fracture type: closed (1) Fracture of proximal end of left tibia Encounter type: initial encounter Fracture morphology: unspecified fracture morphology Fracture type: open (2) Fracture of proximal end of right tibia Encounter type: initial encounter Fracture morphology: unspecified fracture morphology Fracture type: closed Qualified Code(s): S82.101A - Unspecified fracture of upper end of right tibia, initial encounter for closed fracture
[2024-03-08] MEDS: POLYETHYLENE (MIRALAX) 17 GM PACK PO SCH (12:39)
[2024-03-08] MEDS: LORazepam 0.5 MG in SYRINGE 0.25 ML IV STA (12:39)
[2024-03-08] MEDS: GADOBUTROL 65ML VIAL IV ONE (13:58)
--- NOTE | 2024-03-08 14:19 | Hospitalist Progress Note ---
Date of Service March 08, 2024 Assessment & Plan (1) AMS (altered mental status): Plan This is a 73-year-old female who has a significant past medical history of polymyositis, HTN, HLD, hypothyroidism, ILD, RLS, major depressive disorder, PTSD, anxiety and history of GERD who presents to ED secondary to visual hallucinations. Patient recently hospitalized 02/24 to 02/28 secondary to fall with right tibial fracture and avulsion fracture of the left condyle of left tibia. She underwent left knee washout with a total of 15 sutures. She is nonweightbearing to her bilateral lower extremities for approximately 2 to 3 months. She was also found to have acute on chronic hyponatremia. She was discharged to rehab in stable condition. While at [facility] patient and family upset with care. It is felt this triggered her PTSD. She had also been experiencing visual hallucinations. She was referred to ED for further workup. Right ankle cellulitis Likely metabolic encephalopathy Visual hallucinations Patient coming in with altered mentation, noted to have right ankle cellulitis blood culture NGTD venous doppler negative pt had prior episodes in past associated with delirium in setting of hyponatremia follows [facility], she also has been evaluated by Neuropsych for cognitive testing and she did well, she did not meet criteria for cognitive impairment obtain brain MRI r/o organic pathology, TSH normal sx may also be exacerbated by poor sleep hygiene and pain give melatonin scheduled at HS, will also give Lorazepam x1 today Right tibial fracture Avulsion fracture of left condyle of left tibia Bilateral knee braces in place Obtain bilateral knee x-rays Consult orthopedics, Dr. Tanner for follow-up as patient missed her appointment She will remain nonweightbearing for 2 to 3 months Acute on Chronic Hyponatremia: NA 128 today, history of SIADH and psychogenic polydipsia. On sodium tablet. Maintain fluid restriction of 1.5L/D, sodium improving CAD: Chronic Mild bilateral intracranial ICA stenosis Continue ASA and rosuvastatin Hypertension continue atenolol and lasix BP elevated, resume losartan 50mg bid which was stopped last admission due to low blood pressure Dyslipidemia: Chronic Takes rosuvastatin; continue Depression: PTSD Anxiety Chronic Wellbutrin and BuSpar; And Cymbalta. Continue. Follows [facility] psychiatry pt with increased depressive/anxiety sx as well as paranoia will consult psych for their input ILD: Chronic Follows with pulmonary; Dr. Stanton [facility] Takes azathioprine; continue Goals of care: Hindu: Prefers to avoid blood transfusions Open to B12, folate, iron Takes vitamin B12 and folic acid; continue GERD: Chronic Takes omeprazole; continue Lovenox subcu for DVT prophylaxis. FULL CODE PCP: Dr. Lima Dispo: given strict nonweightbearing status pt likely to need some sort of rehab; however not interested in [facility] Pt was seen and examined in collaboration with Dr. Woods, please see addendum A total of 65 minutes was spent coordinating, documenting, and providing care for this patient excluding time spent in the performance of separately billed services. This included personally viewing all current laboratories and imaging studies, medication reconciliation, outpatient chart review, and discussion with specialists. Admission and Anticipated Discharge Date Admission Date: March 07, 2024 Subjective Patient was seen and examined in room 457. Follow-up visual hallucinations. Daughter and sister are at bedside. They help elicit history. They report for caregiving over at [facility]. This has triggered patient's prior PTSD and she has become very paranoid and has been visually hallucinating. Daughter visibly tearful and concerned regarding her mother's current health. Patient is overly anxious. She is very concerned about getting her recent fractures reevaluated as she was supposed to be seen in clinic. She currently denies any pain. She denies fever, chills, sweats, chest pain, shortness of breath, nausea or vomiting. She currently has her shades on her window pulled because she felt she was visually hallucinating at things outside. Daughter reports that she had similar hallucinating episode of her sodium was low. This tended to resolve once her sodium improved. She has also had a formal neuropsych testing as an outpatient and it was not felt that she had any component of the dementia. It was felt that her episodes were more related to delirium. Pt reports she has not urinated since last night. She feels like she has to. Her last BM was 2 days ago. Overall appetite has been okay. Review of Systems Review of Systems: All systems reviewed & are unremarkable except as noted in HPI & below Physical Exam 2 Physical Exam: Gen: WD/WN, NAD, A&O x3 HEENT: Normocephalic, atraumatic, conjunctivae moist, sclerae anicteric, mucous membranes moist. Lung: Clear to Auscultation bilaterally, no wheezes/rales/rhonchi Heart: Regular rate, regular rhythm, no murmurs, rubs, or gallops Abdomen: Soft, NT, ND +BS x 4 Extremities: b/l knee immobilizers in place, scant right pretibial erythema, not overty warm, b/l incisions healing well, sutures in tact on L tibia Skin: Warm, no rash, negative turgor. Results & Data Results & Data Vital Signs (Past 12 Hours) Vital Signs Temp Pulse Pulse Resp BP Pulse Ox O2 Del Method 03/08/24 13:50 74 03/08/24 10:56 36.7 C 75 22 166/77 H 96 Room Air 03/08/24 07:43 36.7 C 69 20 183/81 H 95 Room Air 03/08/24 03:53 36.6 C 83 18 182/97 H 96 Room Air Medications Administered Current Inpatient Medications Acetaminophen (Acetaminophen 325 Mg Tab) 650 mg PO Q4H PRN PRN Reason: Pain or Fever Stop: 04/06/24 17:20 Last Admin: 03/08/24 12:41 Dose: 650 mg Al Hydrox/Mg Hydrox/Simethicone (Aluminum/Magnesium Susp 30 Ml Udc) 15 ml PO Q4H PRN PRN Reason: Dyspepsia Stop: 04/06/24 17:20 Aspirin (Aspirin 81 Mg Ectab) 81 mg PO DAILY [facility] Stop: 04/07/24 08:59 Last Admin: 03/08/24 10:06 Dose: 81 mg Atenolol (Atenolol 25 Mg Tablet) 25 mg PO QAM [facility] Stop: 04/08/24 08:59 Atorvastatin Calcium (Atorvastatin 10 Mg Tab) 10 mg PO HS [facility] Stop: 04/06/24 20:59 Last Admin: 03/07/24 21:41 Dose: 10 mg Azathioprine (Azathioprine 50 Mg Tab) 50 mg PO QAM [facility] Stop: 04/07/24 08:59 Last Admin: 03/08/24 09:22 Dose: 50 mg Azelastine HCl (Azelastine Hcl 0.1% Nasal 200 Sprays/27,400 Mcg Btl) 1 sprays JOSE LUIS BID [facility] Stop: 04/06/24 20:59 Last Admin: 03/08/24 09:23 Dose: Not Given Bupropion HCl (Bupropion Xl 150 Mg Tabcr) 150 mg PO QAM [facility] Stop: 04/07/24 08:59 Last Admin: 03/08/24 10:06 Dose: 150 mg Buspirone HCl (Buspirone 5 Mg Tab) 10 mg PO TID [facility] Stop: 04/06/24 20:59 Last Admin: 03/08/24 09:22 Dose: 10 mg Calcium Carbonate (Calcium Carbonate 1250mg Tab) 1 tab PO BID [facility] Stop: 04/06/24 20:59 Last Admin: 03/08/24 09:22 Dose: 1 tab Cyanocobalamin (Cyanocobalamin (B-12) 2,500 Mcg Tablet) 5,000 mcg SL DAILY [facility] Stop: 04/07/24 08:59 Last Admin: 03/08/24 10:05 Dose: 5,000 mcg Cyproheptadine HCl (Cyproheptadine Hcl 4 Mg Tab) 8 mg PO HS [facility] Stop: 04/06/24 20:59 Last Admin: 03/07/24 21:39 Dose: 8 mg Docusate Sodium (Docusate Sodium 100 Mg Cap) 100 mg PO AMHS PRN PRN Reason: constipation Stop: 04/06/24 20:59 Duloxetine HCl (Duloxetine Hcl 30 Mg Cap) 30 mg PO QAM [facility] Stop: 04/07/24 08:59 Last Admin: 03/08/24 10:05 Dose: 30 mg Enoxaparin Sodium (Enoxaparin Inj 40 Mg/0.4 Ml Syr) 40 mg SQ DAILY [facility] Stop: 04/07/24 08:59 Last Admin: 03/08/24 10:04 Dose: 40 mg Furosemide (Furosemide 20 Mg Tab) 20 mg PO DAILY [facility] Stop: 04/07/24 08:59 Last Admin: 03/08/24 10:06 Dose: 20 mg Haloperidol Lactate (Haloperidol Lactate 5 Mg/Ml 1 Ml Vial) 2.5 mg IV Q8H PRN PRN Reason: hallucination/agitation Stop: 04/06/24 17:15 Last Admin: 03/07/24 18:40 Dose: 2.5 mg Hydroxyzine HCl (Hydroxyzine Hcl 10 Mg Tab) 10 mg PO Q8H PRN PRN Reason: Anxiety/Agitation Stop: 04/06/24 17:15 Last Admin: 03/08/24 02:40 Dose: 10 mg Ceftriaxone Sodium (Rocephin) 2,000 mg in 50 mls @ 100 mls/hr IV Q24H [facility] Stop: 03/15/24 13:59 Lactobacillus Acidophilus (Advanced Probiotic 625 Mg Capsule) 1,250 mg PO DAILY [facility] Stop: 04/07/24 08:59 Last Admin: 03/08/24 10:06 Dose: 1,250 mg Losartan Potassium (Losartan Potassium 50 Mg Tab) 50 mg PO BID [facility] Stop: 04/07/24 08:59 Last Admin: 03/08/24 10:08 Dose: 50 mg Magnesium Oxide (Magnesium Oxide 400 Mg Tab) 400 mg PO DAILY [facility] Stop: 04/07/24 08:59 Last Admin: 03/08/24 10:06 Dose: 400 mg Melatonin (Melatonin 3 Mg Tab) 6 mg PO 2000 [facility] Stop: 04/07/24 19:59 Multivitamins/Minerals (Cerovite Adv Formula Tab) 1 tab PO DAILY [facility] Stop: 04/07/24 08:59 Last Admin: 03/08/24 10:08 Dose: 1 tab Olanzapine (Olanzapine 2.5 Mg Tab) 2.5 mg PO Q8H PRN PRN Reason: Agitation Stop: 04/06/24 21:51 Last Admin: 03/07/24 22:21 Dose: 2.5 mg Oxycodone HCl (Oxycodone Hcl Ir 5 Mg Tab (Immediate Release)) 5 - 10 mg PO Q4H PRN PRN Reason: pain Stop: 03/21/24 17:22 Last Admin: 03/08/24 02:40 Dose: 5 mg Pantoprazole Sodium (Pantoprazole 40 Mg Tab) 40 mg PO DAILYBB [facility] Stop: 04/07/24 06:29 Last Admin: 03/08/24 05:39 Dose: 40 mg Polyethylene Glycol (Polyethylene (Miralax) 17 Gm Pack) 17 gm PO TID PRN PRN Reason: constipation Stop: 04/06/24 20:59 Polyethylene Glycol (Polyethylene (Miralax) 17 Gm Pack) 17 gm PO DAILY [facility] Stop: 04/07/24 09:44 Last Admin: 03/08/24 12:39 Dose: 17 gm Pramipexole Dihydrochloride (Pramipexole Dihydrochlo 0.5 Mg Tab) 0.5 mg PO Q8 [facility] Stop: 04/06/24 21:59 Last Admin: 03/08/24 05:39 Dose: 0.5 mg Sodium Chloride (Sodium Chloride 1 Gm Tablet) 1 gm PO BID [facility] Stop: 04/06/24 20:59 Last Admin: 03/08/24 09:21 Dose: 1 gm Valacyclovir HCl (Valacyclovir Hcl 500 Mg Tablet) 500 mg PO [facility] Stop: 04/07/24 08:59 Last Admin: 03/08/24 10:07 Dose: 500 mg Vitamin D (Cholecalciferol 125 Mcg (5,000 Units) Tab) 125 mcg PO [facility] Stop: 04/07/24 08:59 Last Admin: 03/08/24 10:07 Dose: 125 mcg
--- NOTE | 2024-03-08 14:34 | Magnetic Resonance Report ---
MRI OF THE BRAIN COMBO CLINICAL HISTORY: Change in mental status. Hallucinations. COMPARISON STUDY: CT of the brain dated 03/07/2024. TECHNIQUE: MRI of the brain was performed utilizing various T1 and T2-weighted sequences in the axial , sagittal, and coronal planes. Contrast-enhanced sequences were acquired following the administratio n of 9 cc of Gadavist. FINDINGS: Brain parenchyma: There is age-related involutional change noting minimal microangiopathic disease. T here is no hemorrhage or mass effect. There is no restricted diffusion to suggest acute ischemia. No enhancing mass lesion is identified on the postcontrast images. Mejia-white matter differentiation is preserved. No extra-axial fluid collection is seen. The cerebellar tonsils are normal in configuratio n. Ventricles, sulci, and cisterns: Prominent secondary to involutional change. Pituitary and sella: Partially empty sella is incidentally noted. Intracranial vasculature: Normal flow voids are maintained at the skull base. Orbits: The bony orbits are grossly intact. Orbital contents are normal in appearance. Sinuses and mastoids: There is mild mucosal thickening within the left maxillary antrum and the left ethmoid sinuses. There is trace left mastoid effusion. Calvarium: Unremarkable. Cervical cord: Partially visualized cervical spinal cord is normal in morphology and signal intensity . IMPRESSION: No acute intracranial abnormality. ACT 112: Negative or not required by law. Electronically signed by: Sd Sutherland M.D. 03/08/2024 2:32 PM
--- NOTE | 2024-03-08 14:37 | XRay Report ---
RIGHT KNEE 2 VIEWS CLINICAL HISTORY: Recent fracture. FINDINGS: AP and crosstable lateral views of the right knee are compared to study dated 02/25/2024. The skeletal structures are osteopenic. There is unchanged appearance of a periprosthetic fracture of th e proximal tibia. This involves the medial metadiaphyseal cortex, as well as the lateral tibial plate au as well as the cortex of the lateral tibial metaphysis. Alignment is unchanged from 02/25/2024. A le ft knee arthroplasty is in near anatomic alignment. The distal femur and proximal fibula appear intac t. There has been undersurface remodeling of the patella. A small joint effusion persists. Soft tissu e swelling is present around the knee. IMPRESSION: 1. There is unchanged alignment of a periprosthetic fracture of the proximal tibia. 2. No additional fracture is seen. 3. Soft tissue swelling and joint effusion. 4. A right knee arthroplasty is in near anatomic alignment. Electronically signed by: Sd Sutherland M.D. 03/08/2024 2:36 PM
--- NOTE | 2024-03-08 14:55 | XRay Report ---
XR knee LT 1 or 2V routine HISTORY: 73 years-old Female recent fx chronic bilateral knee pain COMPARISON: 02/25/2024 TECHNIQUE: 2 views of the left knee FINDINGS: Demineralized appearance of the bones. Total arthroplasty with patellar resurfacing. Moderate-sized j oint effusion with prepatellar soft tissue swelling redemonstrated. Acute and displaced avulsion frac ture of the tibial tuberosity redemonstrated with progressive anterosuperior displacement. Anterior d isplacement of 1.5 cm. IMPRESSION: Progressive anterosuperior displacement of the acute avulsion fracture of the tibial tube rosity. ACT 112: Negative or not required by law. The above report was generated using voice recognition software. It may contain grammatical, syntax o r spelling errors. Electronically signed by: Jon Man M.D. 03/08/2024 2:53 PM
[2024-03-08] MEDS: cefTRIAXone SODIUM 2,000 MG/50 ML BAG IV SCH (15:04)
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
[2024-03-08] MEDS: MELATONIN 3 MG TAB PO SCH (20:13)
[2024-03-08] MEDS: LORazepam 1 MG TAB PO SCH (22:08)
[2024-03-08] MEDS: NYSTATIN POWDER 15GM BTL EXT SCH (23:27)
[2024-03-09 06:42] LABS: Basophils # (auto) 0.09 K/uL (0.00-0.20); Basophils % (auto) 1.2 %; Eosinophils % (auto) 5.2 %; Hematocrit (blood only) 29.5 % (37.0-47.0); Hemoglobin 9.9 g/dl (12.0-16.0); Immature Granulocytes # (auto) 0.04 K/uL (0.01-0.20); Immature Granulocytes % (auto) 0.5 %; Lymphocytes # (auto) 1.46 K/uL (1.20-3.40); Lymphocytes % (auto) 18.9 %; Mean Corpuscular Hemoglobin 34.9 pg (25.0-34.0); Mean Corpuscular Hgb Conc 33.6 g/dL (32.0-36.0); Mean Corpuscular Volume 103.9 fL (80.0-100.0); Mean Platelet Volume 8.1 fL (9.4-12.4); Monocytes % (auto) 9.1 %; Neutrophils # (auto) 5.02 K/uL (1.40-6.50); Neutrophils % (auto) 65.1 %; Platelet Count 445 K/uL (130-400); RDW Coefficient of Variation 13.2 % (11.5-14.5); RDW Standard Deviation 49.8 fL (36.4-46.3); Red Blood Count 2.84 M/uL (4.20-5.40); White Blood Count 7.71 K/ul (4.8-10.8)
--- NOTE | 2024-03-09 06:52 | Orthopedic Progress Note ---
Date of Service March 09, 2024 Assessment & Plan (1) Fracture of proximal end of left tibia: Unfortunately she has bilateral periprosthetic proximal tibia fractures. The fractures are fairly well aligned up and if they heal where they are currently at then no surgery is necessary. Unfortunately, she will be in the knee immobilizers and nonweightbearing for close to 3 months. I may start range of motion of her knees around 8 weeks. For now, the sutures have been removed and the x-rays show the fractures are stable. She is to remain in the knee immobilizers and to be nonweightbearing. I will see her in my office in 4 weeks for 6-week follow-up and repeat x-rays. (2) Fracture of proximal end of right tibia: Bryon Granda was seen and examined at bedside this morning. Overall she is doing okay. The sutures were removed yesterday. She has been wearing her knee immobilizers as instructed.. Review of Systems All systems reviewed & are unremarkable except as noted in HPI & below. Physical Exam On physical examination of the legs, both legs are out in knee immobilizers. She has active motion of her ankles.. Results & Data Results & Data Laboratory Results . Diagnostic Findings X-rays reviewed of the right knee show a nondisplaced periprosthetic right proximal tibia fracture. There is been no further displacement from the previous x-rays X-rays obtained of the left knee show a minimally displaced fracture of the tibial tuberosity. There is slight superior migration. The patella seems to be fairly centered.. PG Care Time/CCT Total # of Minutes Spent Total Time Spent with Patient: Total time spent is greater than 50% in coordination of care (as documented) at patient's floor/unit and/or counseling patient: Coding Level of Care Code 07594 SUB INP/OBS CARE 2/35MIN Diagnoses Fracture of proximal end of left tibia S82.102A Encounter type: initial encounter Fracture morphology: unspecified fracture morphology Fracture type: open Fracture of proximal end of right tibia S82.101A Encounter type: initial encounter Fracture morphology: unspecified fracture morphology Fracture type: closed (1) Fracture of proximal end of left tibia Encounter type: initial encounter Fracture morphology: unspecified fracture morphology Fracture type: open (2) Fracture of proximal end of right tibia Encounter type: initial encounter Fracture morphology: unspecified fracture morphology Fracture type: closed Qualified Code(s): S82.101A - Unspecified fracture of upper end of right tibia, initial encounter for closed fracture
[2024-03-09 07:00] LABS: BUN Creatinine Ratio 22.7 (10-20); Est GFR (African American) 116.9 ml/min; Est GFR (Non-African American) 100.8 ml/min; Potassium 3.7 mmol/L (3.5-5.1)
[2024-03-09] MEDS: DULoxetine HCL 60 MG CAP PO SCH (08:08)
[2024-03-09] MEDS: ATENOLOL 25 MG TABLET PO SCH ×2 (08:09→21:24)
[2024-03-09] MEDS: LORazepam 0.5 MG TAB PO SCH (08:16)
--- NOTE | 2024-03-09 12:59 | Hospitalist Progress Note ---
Date of Service March 09, 2024 Assessment & Plan (1) AMS (altered mental status): Plan This is a 73-year-old female who has a significant past medical history of polymyositis, HTN, HLD, hypothyroidism, ILD, RLS, major depressive disorder, PTSD, anxiety and history of GERD who presents to ED secondary to visual hallucinations. Patient recently hospitalized 02/24 to 02/28 secondary to fall with right tibial fracture and avulsion fracture of the left condyle of left tibia. She underwent left knee washout with a total of 15 sutures. She is nonweightbearing to her bilateral lower extremities for approximately 2 to 3 months. She was also found to have acute on chronic hyponatremia. She was discharged to rehab in stable condition. While at [facility] patient and family upset with care. It is felt this triggered her PTSD. She had also been experiencing vivid visual h allucinations. She was referred to ED for further workup. Right ankle cellulitis Likely metabolic encephalopathy Visual hallucinations Patient coming in with altered mentation, noted to have right ankle cellulitis blood culture NGTD venous doppler negative pt had prior episodes in past associated with delirium in setting of hyponatremia follows [facility], she also has been evaluated by Neuropsych for cognitive testing and she did well, she did not meet criteria for cognitive impairment MRI Brain w/o acute pathology, TSH normal sx may also be exacerbated by poor sleep hygiene, PTSD and pain psych consulted: recs as below Continue IV Ceftriaxone, sx improving, Per Dr. Tanner recommend course of antibiotics to prevent infection to knee Right tibial fracture Avulsion fracture of left condyle of left tibia Bilateral knee braces in place XR obtain and independently reviewed, alignment appropriate She was seen by Dr. Tanner Sutures to L knee were removed She will remain nonweightbearing for 3 months Follow up with Orthopedics in 4 weeks from 03/08. Acute on Chronic Hyponatremia: NA 132 today, history of SIADH and psychogenic polydipsia. On sodium tablet. Maintain fluid restriction of 1.5L/D, sodium improving CAD: Chronic Mild bilateral intracranial ICA stenosis Continue ASA and rosuvastatin Hypertension continue atenolol and lasix BP elevated, resume losartan 50mg bid which was stopped last admission due to low blood pressure blood pressure remains elevated; review of outpatient chart shows labile pressures 130s-180s increase atenolol to bid Dyslipidemia: Chronic Takes rosuvastatin; continue Depression: PTSD Anxiety Chronic Wellbutrin and BuSpar; And Cymbalta. Continue. Follows [facility] pt with increased depressive/anxiety sx as well as paranoia Psych consulted who recommends increased cymbalta to 60mg 03/09 and and increased to 90 mg daily starting on 03/11 Scheduled ativan per psych, 0.5mg a.m. and afternoon and 1mg at HS felt sx likely exacerbated by underlying PTSD Psych to follow ILD: Chronic Follows with pulmonary; Dr. Stanton TERRELL Takes azathioprine; continue Goals of care: Synagogue: Prefers to avoid blood transfusions Open to B12, folate, iron Takes vitamin B12 and folic acid; continue GERD: Chronic Takes omeprazole; continue Lovenox subcu for DVT prophylaxis. FULL CODE PCP: Dr. Mark Dispo: given strict nonweightbearing status pt likely to need some sort of rehab; however not interested in [facility] Pt was seen and examined in collaboration with Dr. Woods, please see addendum A total of 45 minutes was spent coordinating, documenting, and providing care for this patient excluding time spent in the performance of separately billed services. This included personally viewing all current laboratories and imaging studies, medication reconciliation, outpatient chart review, and discussion with specialists. Admission and Anticipated Discharge Date Admission Date: March 07, 2024 Subjective Patient was seen and examined in room 457. Follow-up visual hallucinations. She is feeling better today. No further hallucinations. She slept 6 hours yesterday. She feels the lorazepam has helped. She denies f/c/s, chest pain, sob, n/v/d. She is drowsy but arouses to verbal stimuli. Review of Systems Review of Systems: All systems reviewed & are unremarkable except as noted in HPI & below Physical Exam Physical Exam: Gen: WD/WN, NAD, A&O x3 HEENT: Normocephalic, atraumatic, conjunctivae moist, sclerae anicteric, mucous membranes moist. Lung: Clear to Auscultation bilaterally, no wheezes/rales/rhonchi Heart: Regular rate, regular rhythm, no murmurs, rubs, or gallops Abdomen: Soft, NT, ND +BS x 4 Extremities: b/l knee immobilizers in place, NVI distally Skin: Warm, no rash, negative turgor. Results & Data Results & Data Vital Signs (Past 12 Hours) Vital Signs Temp Pulse Resp BP Pulse Ox O2 Del Method 03/09/24 08:04 73 167/79 H 03/09/24 07:17 36.6 C 70 16 145/81 H 95 Room Air Laboratory Results Short CBC 03/09/24 Range/Units 06:11 WBC 7.71 (4.8-10.8) K/ul Hgb 9.9 L (12.0-16.0) g/dl Hct 29.5 L (37.0-47.0) % Plt Count 445 H (130-400) K/uL BMP 03/09/24 06:11 Sodium 132 L Potassium 3.7 Chloride 98 Carbon Dioxide 28 BUN 10 Creatinine 0.44 L Glucose 113 H Calcium 9.0 I have independently reviewed and interpreted patient's labs, cbc, bmp, mag. Diagnostic Findings Brain MRI 03/08/24 09:41 MRI OF THE BRAIN COMBO CLINICAL HISTORY: Change in mental status. Hallucinations. COMPARISON STUDY: CT of the brain dated 03/07/2024. TECHNIQUE: MRI of the brain was performed utilizing various T1 and T2-weighted sequences in the axial, sagittal, and coronal planes. Contrast-enhanced sequences were acquired following the administration of 9 cc of Gadavist. FINDINGS: Brain parenchyma: There is age-related involutional change noting minimal microangiopathic disease. There is no hemorrhage or mass effect. There is no restricted diffusion to suggest acute ischemia. No enhancing mass lesion is identified on the postcontrast images. Mejia-white matter differentiation is preserved. No extra-axial fluid collection is seen. The cerebellar tonsils are normal in configuration. Ventricles, sulci, and cisterns: Prominent secondary to involutional change. Pituitary and sella: Partially empty sella is incidentally noted. Intracranial vasculature: Normal flow voids are maintained at the skull base. Orbits: The bony orbits are grossly intact. Orbital contents are normal in appearance. Sinuses and mastoids: There is mild mucosal thickening within the left maxillary antrum and the left ethmoid sinuses. There is trace left mastoid effusion. Calvarium: Unremarkable. Cervical cord: Partially visualized cervical spinal cord is normal in morphology and signal intensity. IMPRESSION: No acute intracranial abnormality. ACT 112: Negative or not required by law. Electronically signed by: Sd Sutherland M.D. 03/08/2024 2:32 PM Knee X-Ray 03/08/24 09:43 RIGHT KNEE 2 VIEWS CLINICAL HISTORY: Recent fracture. FINDINGS: AP and crosstable lateral views of the right knee are compared to study dated 02/25/2024. The skeletal structures are osteopenic. There is unchanged appearance of a periprosthetic fracture of the proximal tibia. This involves the medial metadiaphyseal cortex, as well as the lateral tibial plateau as well as the cortex of the lateral tibial metaphysis. Alignment is unchanged from 02/25/2024. A left knee arthroplasty is in near anatomic alignment. The distal femur and proximal fibula appear intact. There has been undersurface remodeling of the patella. A small joint effusion persists. Soft tissue swelling is present around the knee. IMPRESSION: 1. There is unchanged alignment of a periprosthetic fracture of the proximal tibia. 2. No additional fracture is seen. 3. Soft tissue swelling and joint effusion. 4. A right knee arthroplasty is in near anatomic alignment. Electronically signed by: Sd Sutherland M.D. 03/08/2024 2:36 PM Knee X-Ray 03/08/24 09:43 XR knee LT 1 or 2V routine HISTORY: 73 years-old Female recent fx chronic bilateral knee pain COMPARISON: 02/25/2024 TECHNIQUE: 2 views of the left knee FINDINGS: Demineralized appearance of the bones. Total arthroplasty with patellar resurfacing. Moderate-sized joint effusion with prepatellar soft tissue swelling redemonstrated. Acute and displaced avulsion fracture of the tibial tuberosity redemonstrated with progressive anterosuperior displacement. Anterior displacement of 1.5 cm. IMPRESSION: Progressive anterosuperior displacement of the acute avulsion fracture of the tibial tuberosity. ACT 112: Negative or not required by law. The above report was generated using voice recognition software. It may contain grammatical, syntax or spelling errors. Electronically signed by: Jon Man M.D. 03/08/2024 2:53 PM Medications Administered Current Inpatient Medications Acetaminophen (Acetaminophen 325 Mg Tab) 650 mg PO Q4H PRN PRN Reason: Pain or Fever Stop: 04/06/24 17:20 Last Admin: 03/09/24 08:13 Dose: 650 mg Al Hydrox/Mg Hydrox/Simethicone (Aluminum/Magnesium Susp 30 Ml Udc) 15 ml PO Q4H PRN PRN Reason: Dyspepsia Stop: 04/06/24 17:20 Aspirin (Aspirin 81 Mg Ectab) 81 mg PO DAILY UTE Stop: 04/07/24 08:59 Last Admin: 03/09/24 08:08 Dose: 81 mg Atenolol (Atenolol 25 Mg Tablet) 25 mg PO QAM UTE Stop: 04/08/24 08:59 Last Admin: 03/09/24 08:09 Dose: 25 mg Atorvastatin Calcium (Atorvastatin 10 Mg Tab) 10 mg PO HS UTE Stop: 04/06/24 20:59 Last Admin: 03/08/24 20:13 Dose: 10 mg Azathioprine (Azathioprine 50 Mg Tab) 50 mg PO QAM [facility] Stop: 04/07/24 08:59 Last Admin: 03/09/24 08:10 Dose: 50 mg Azelastine HCl (Azelastine Hcl 0.1% Nasal 200 Sprays/27,400 Mcg Btl) 1 sprays JOSE LUIS BID [facility] Stop: 04/06/24 20:59 Last Admin: 03/09/24 08:06 Dose: Not Given Bupropion HCl (Bupropion Xl 150 Mg Tabcr) 150 mg PO QAM UTE Stop: 04/07/24 08:59 Last Admin: 03/09/24 08:09 Dose: 150 mg Buspirone HCl (Buspirone 5 Mg Tab) 10 mg PO TID UTE Stop: 04/06/24 20:59 Last Admin: 03/09/24 08:08 Dose: 10 mg Calcium Carbonate (Calcium Carbonate 1250mg Tab) 1 tab PO BID UTE Stop: 04/06/24 20:59 Last Admin: 03/09/24 08:09 Dose: 1 tab Cyanocobalamin (Cyanocobalamin (B-12) 2,500 Mcg Tablet) 5,000 mcg SL DAILY UTE Stop: 04/07/24 08:59 Last Admin: 03/09/24 08:11 Dose: 5,000 mcg Cyproheptadine HCl (Cyproheptadine Hcl 4 Mg Tab) 8 mg PO HS UTE Stop: 04/06/24 20:59 Last Admin: 03/08/24 20:13 Dose: 8 mg Docusate Sodium (Docusate Sodium 100 Mg Cap) 100 mg PO AMHS PRN PRN Reason: constipation Stop: 04/06/24 20:59 Duloxetine HCl (Duloxetine Hcl 60 Mg Cap) 60 mg PO QAM [facility] Stop: 03/10/24 09:01 Last Admin: 03/09/24 08:08 Dose: 60 mg Duloxetine HCl (Duloxetine Hcl 30 Mg Cap) 90 mg PO QAM UTE Stop: 04/10/24 08:59 Enoxaparin Sodium (Enoxaparin Inj 40 Mg/0.4 Ml Syr) 40 mg SQ DAILY UTE Stop: 04/07/24 08:59 Last Admin: 03/09/24 08:14 Dose: 40 mg Furosemide (Furosemide 20 Mg Tab) 20 mg PO DAILY UTE Stop: 04/07/24 08:59 Last Admin: 03/09/24 08:11 Dose: 20 mg Haloperidol Lactate (Haloperidol Lactate 5 Mg/Ml 1 Ml Vial) 2.5 mg IV Q8H PRN PRN Reason: hallucination/agitation Stop: 04/06/24 17:15 Last Admin: 03/07/24 18:40 Dose: 2.5 mg Hydroxyzine HCl (Hydroxyzine Hcl 10 Mg Tab) 10 mg PO Q8H PRN PRN Reason: Anxiety/Agitation Stop: 04/06/24 17:15 Last Admin: 03/08/24 20:13 Dose: 10 mg Ceftriaxone Sodium (Rocephin) 2,000 mg in 50 mls @ 100 mls/hr IV Q24H UTE Stop: 03/15/24 13:59 Last Infusion: 03/08/24 18:10 Dose: Infused Lactobacillus Acidophilus (Advanced Probiotic 625 Mg Capsule) 1,250 mg PO DAILY UTE Stop: 04/07/24 08:59 Last Admin: 03/09/24 08:07 Dose: 1,250 mg Lorazepam (Lorazepam 0.5 Mg Tab) 0.5 mg PO 0800,1400 UTE Stop: 04/08/24 07:59 Last Admin: 03/09/24 08:16 Dose: 0.5 mg Lorazepam (Lorazepam 1 Mg Tab) 1 mg PO HS UTE Stop: 04/07/24 20:59 Last Admin: 03/08/24 22:08 Dose: 1 mg Losartan Potassium (Losartan Potassium 50 Mg Tab) 50 mg PO BID UTE Stop: 04/07/24 08:59 Last Admin: 03/09/24 08:12 Dose: 50 mg Magnesium Oxide (Magnesium Oxide 400 Mg Tab) 400 mg PO DAILY UTE Stop: 04/07/24 08:59 Last Admin: 03/09/24 08:07 Dose: 400 mg Melatonin (Melatonin 3 Mg Tab) 6 mg PO 2000 UTE Stop: 04/07/24 19:59 Last Admin: 03/08/24 20:13 Dose: 6 mg Multivitamins/Minerals (Cerovite Adv Formula Tab) 1 tab PO DAILY UTE Stop: 04/07/24 08:59 Last Admin: 03/09/24 08:12 Dose: 1 tab Nystatin (Nystatin Powder 15gm Btl) 1 appln EXT BID UTE Stop: 04/07/24 20:59 Last Admin: 03/09/24 08:22 Dose: 1 appln Olanzapine (Olanzapine 2.5 Mg Tab) 2.5 mg PO Q8H PRN PRN Reason: Agitation Stop: 04/06/24 21:51 Last Admin: 03/08/24 22:58 Dose: 2.5 mg Pantoprazole Sodium (Pantoprazole 40 Mg Tab) 40 mg PO DAILYBB UTE Stop: 04/07/24 06:29 Last Admin: 03/09/24 06:13 Dose: 40 mg Polyethylene Glycol (Polyethylene (Miralax) 17 Gm Pack) 17 gm PO TID PRN PRN Reason: constipation Stop: 04/06/24 20:59 Polyethylene Glycol (Polyethylene (Miralax) 17 Gm Pack) 17 gm PO DAILY UTE Stop: 04/07/24 09:44 Last Admin: 03/09/24 08:16 Dose: 17 gm Pramipexole Dihydrochloride (Pramipexole Dihydrochlo 0.5 Mg Tab) 0.5 mg PO Q8 UTE Stop: 04/06/24 21:59 Last Admin: 03/09/24 06:13 Dose: 0.5 mg Sodium Chloride (Sodium Chloride 1 Gm Tablet) 1 gm PO BID UTE Stop: 04/06/24 20:59 Last Admin: 03/09/24 08:08 Dose: 1 gm Valacyclovir HCl (Valacyclovir Hcl 500 Mg Tablet) 500 mg PO QAM UTE Stop: 04/07/24 08:59 Last Admin: 03/09/24 08:13 Dose: 500 mg Vitamin D (Cholecalciferol 125 Mcg (5,000 Units) Tab) 125 mcg PO QAM [facility] Stop: 04/07/24 08:59 Last Admin: 03/09/24 08:11 Dose: 125 mcg
[2024-03-10 07:41] LABS: BUN Creatinine Ratio 28.3 (10-20); Calcium 8.8 mg/dl (8.6-10.3); Creatinine Clr Calc Pharmacy 116.7 ml/min; Est GFR (African American) 115.2 ml/min; Est GFR (Non-African American) 99.4 ml/min
[2024-03-10] MEDS: SODIUM CHLORIDE 1 GM TABLET PO SCH (08:47)
--- NOTE | 2024-03-10 11:09 | Hospitalist Progress Note ---
Date of Service March 10, 2024 Assessment & Plan (1) AMS (altered mental status): Plan This is a 73-year-old female who has a significant PMHx of polymyositis, HTN, HLD, hypothyroidism, ILD, RLS, major depressive disorder, PTSD, anxiety and history of GERD who presented to ED secondary to visual hallucinations. Patient recently hospitalized 02/24 to 02/28 secondary to fall with right tibial fracture and avulsion fracture of the left condyle of left tibia. She underwent left knee washout with a total of 15 sutures. She is non-weightbearing to her bilateral lower extremities for approximately 2 to 3 months. She was also found to have acute on chronic hyponatremia. She was discharged to rehab in stable condition. While at [facility], patient and family upset with care. It is felt this triggered her PTSD. She had also been experiencing vivid visual hallucinations. She was referred to ED for further work-up. Right ankle cellulitis --> RESOLVED Likely metabolic encephalopathy Visual hallucinations Patient coming in with altered mentation Was noted to have right ankle cellulitis on admission Blood culture NGTD Venous doppler negative Received IV ceftriaxone per Dr. Tanner's recommendation, sx improved --> Stoppi ng IV ceftriaxone today Pt had prior episodes in past associated with delirium in setting of hyponatremia Follows w/ [facility] She also has been evaluated by [facility] for cognitive testing and she did well, did not meet criteria for cognitive impairment MRI Brain w/o acute pathology, TSH normal Sx may also be exacerbated by poor sleep hygiene, PTSD and pain Visual hallucinations improving per pt Psych consulted: recs as below Right tibial fracture Avulsion fracture of left condyle of left tibia Ambulatory restrictions Bilateral knee braces in place XR obtain and independently reviewed, alignment appropriate She was seen by Dr. Tanner Sutures to L knee were removed She will remain non-weightbearing for 3 months Follow up with Orthopedics in 4 weeks from 03/08 Pt will require hospital bed, bedside commode at home Will also need an at-home Charbel lift Need to get home health involved for d/c planning Hospital bed: The patient has a medical condition which requires positioning of the body in ways not feasible with ordinary bed. W/C: Home assessment that verifies patients home can accommodate a manual wheelchair with adequate access between rooms, maneuvering space and surfaces. 1. Patients mobility limitation impairs ability to participate in one or more activities such as toileting, feeding, dressing, grooming and bathing; and 2. Mobility limitation cannot be resolved by use of care or walker; and 3. Patient is able to safely use a manual wheelchair; 4. Patients functional mobility deficit can be resolved by use of a manual wheelchair and patient can maneuver the chair independently; or there is a caregiver to assist the patient with maneuvering; and 5. Patient has the strength to maneuver the wheelchair; and 6. Patient has a caregiver that can propel the chair. Acute on chronic hyponatremia: NA 131 today, history of SIADH and psychogenic polydipsia. On sodium tablet. Maintain fluid restriction of 1.5L/D, sodium seems to be improving. CAD: Chronic, stable Mild bilateral intracranial ICA stenosis Continue ASA and rosuvastatin Hypertension: Continue atenolol and Lasix --> Atenolol increased to BID dosing Resumed losartan 50mg BID 2/2 elevation in BP on Friday (03/08), will continue for now SBP currently holding steady in the ~150s Losartan had to be stopped during last admission d/t low BP Dyslipidemia: Chronic, stable Takes rosuvastatin; continue Depression PTSD Anxiety Chronic Wellbutrin, BuSpar and Cymbalta --> Continue Follows w/ [facility] Pt with increased depressive/anxiety sx as well as paranoia Psych consulted --> Recommends increasing Cymbalta to 60mg on 03/09 and 03/10, then further increase in dosing to 90mg daily starting on 03/11 Scheduled Ativan per psych --> 0.5mg dose in AM and afternoon, then 1mg dose HS Seeley sx likely exacerbated by underlying PTSD Psych to follow ILD: Chronic, stable Follows with pulmonary; Dr. Stanton TERRELL Takes azathioprine; continue Goals of Care: Catholic: Prefers to avoid blood transfusions Open to taking B12, folate and iron Takes vitamin B12 and folic acid; continue GERD: Chronic, stable Takes omeprazole; continue DVT prophylaxis: Lovenox SQ FULL CODE PCP: Dr. Mark Dispo: Given strict non-weightbearing status, pt likely to need some sort of rehab; however, NOT interested in [facility]. Patient was seen and examined in collaboration with Dr. Rivera, please see addendum. A total of 45 minutes was spent coordinating, documenting, and providing care for this patient excluding time spent in the performance of separately billed services. This included personally viewing all current laboratories and imaging studies, medication reconciliation, outpatient chart review, and discussion with specialists. This chart was completed in part utilizing Speech Voice Recognition Software. Grammatical errors, random word insertions, pronoun errors, and incomplete sentences are an occasional consequence of this system due to software limitations, ambient noise, and hardware issues. Any formal questions or concerns about the content, text, or information contained within the body of this dictation should be directly addressed to the provider for clarification. Admission and Anticipated Discharge Date Admission Date: March 07, 2024 Supervising Physician Co-Signing Physician Notes Patient seen and examined independently. Discussed with above provider. Patient seen with patient's daughter at bedside. Patient mentation is now at baseline. She is answering questions appropriately Discussed with daughter and patient regarding discharge plan. They want to get the patient home with family support. Prescription for hospital bed, Charbel lift and bedside commode provided to the case management. Will need home health set up at discharge. Decrease salt tablet to 1 g once a day. Restrict fluid to 1200 cc in 24 hours. Discontinue antibiotics; no signs or symptoms of infection at this time. I have reviewed the advanced practitioner's documentation, and I agree with, and take responsibility for the plan of care I spent a total of 25 minutes coordinating, documenting, and providing care for this patient excluding time spent in the performance of separately billed services. All of the aforementioned completed while collaborating with the assigned advanced practitioner for a full treatment plan Subjective Patient seen and examined in room E322-1. Patient reports improvement of her visual hallucinations. Also mentions improvement in anxiety sx w/ scheduled Ativan. Mentions she had a good discussion w/ psychiatry on Friday (03/08). Feels good about the plan, wants to improve her psychiatric health. Worried she has become a burden to family given health issues. Denies any SI at this time. Reports great family support, willingness to help. Denies any chest pain, SOB, abdominal pain or bowel/bladder habit changes. Review of Systems Review of Systems: At least ten systems reviewed and negative, except as noted in the HPI. Physical Exam Physical Exam: General: WD/WN, vitals as above, NAD. A+Ox3, tearful affect. Conversing appropriately. HEENT: Normocephalic, atraumatic. Normal inspection, PERRL, conjunctivae normal, anicteric sclerae. External ear and nose normal, oropharynx normal. Neck: Normal visual inspection, trachea midline, no thyromegaly. Respiratory: Normal respiratory effort, lungs clear to auscultation, no wheeze, rales, rhonchi. No accessory muscle use. Cardiovascular: Regular rate, rhythm, no murmur, normal peripheral pulses, no BLE edema. Vessels: No JVD. Abdomen/GI: Normal bowel sounds, soft, nontender, no hepatosplenomegaly. Extremities/Musculoskeletal: B/l knee immobilizers in place, neurovascularly intact distally. Neurologic: PERRL, EOMI, accommodation nl, no face palsy, no dysarthria. Skin: No rashes, normal color, warm/dry. Results & Data Results & Data Vital Signs (Past 12 Hours) Vital Signs Temp Pulse Resp BP Pulse Ox O2 Del Method 03/10/24 07:02 36.8 C 64 18 152/77 H 97 Room Air Laboratory Results BMP 03/10/24 06:46 Sodium 131 L Potassium 4.0 Chloride 98 Carbon Dioxide 28 BUN 13 Creatinine 0.46 L Glucose 103 H Calcium 8.8 Diagnostic Findings Chest X-Ray 03/07/24 12:37 XR chest 1V portable HISTORY: 73 years-old Female weakness COMPARISON: 01/22/2023 TECHNIQUE: AP view of the chest FINDINGS: Cardiac silhouette is mildly enlarged. Mild subsegmental bibasilar densities. Atherosclerosis. No pneumothorax or pleural effusion. Upper abdominal surgical clips. IMPRESSION: Cardiomegaly with mild bibasilar atelectasis. ACT 112: Negative or not required by law. The above report was generated using voice recognition software. It may contain grammatical, syntax or spelling errors. Electronically signed by: Jon Man M.D. 03/07/2024 2:[address] 03/07/24 12:38 CT head/brain wo con CLINICAL HISTORY: 73 years-old Female with AMS. Acutely altered mental status TECHNIQUE: Multiple axial CT images of the head were obtained without contrast. A dose lowering technique was utilized adhering to the principles of ALARA. CT DOSE: 547.75 mGy.cm COMPARISON: Head CT 01/22/2023 FINDINGS: Motion degraded exam. No acute intracranial hemorrhage, midline shift, intracranial mass, hydrocephalus, territorial ischemia or abnormal extra-axial collection. Involutional changes with white matter hypodensities suggestive of chronic microvascular ischemic disease. The calvarium is intact. Postoperative changes of the paranasal sinuses. Trace mastoid effusions. Right-sided lens repair. IMPRESSION: No acute intracranial abnormality identified. ACT 112: Negative or not required by law. The above report was generated using voice recognition software. It may contain grammatical, syntax or spelling errors. Electronically signed by: Jon Man M.D. 03/07/2024 1:03 PM Venous Doppler Study 03/07/24 17:16 BILATERAL LOWER EXTREMITY VENOUS DOPPLER HISTORY: Acute pain and swelling of the lower legs ro dvt COMPARISON STUDY: 05/16/2016 FINDINGS: Subcutaneous edema. There is normal compressibility, flow, and a ugmentation within the bilateral lower extremity deep venous systems. IMPRESSION: No DVT within the right or left lower extremity. ACT 112: Negative or not required by law. Electronically signed by: Jon Man M.D. 03/07/2024 6:30 PM Brain MRI 03/08/24 09:41 MRI OF THE BRAIN COMBO CLINICAL HISTORY: Change in mental status. Hallucinations. COMPARISON STUDY: CT of the brain dated 03/07/2024. TECHNIQUE: MRI of the brain was performed utilizing various T1 and T2-weighted sequences in the axial, sagittal, and coronal planes. Contrast-enhanced sequences were acquired following the administration of 9 cc of Gadavist. FINDINGS: Brain parenchyma: There is age-related involutional change noting minimal microangiopathic disease. There is no hemorrhage or mass effect. There is no restricted diffusion to suggest acute ischemia. No enhancing mass lesion is identified on the postcontrast images. Mejia-white matter differentiation is preserved. No extra-axial fluid collection is seen. The cerebellar tonsils are normal in configuration. Ventricles, sulci, and cisterns: Prominent secondary to involutional change. Pituitary and sella: Partially empty sella is incidentally noted. Intracranial vasculature: Normal flow voids are maintained at the skull base. Orbits: The bony orbits are grossly intact. Orbital contents are normal in appearance. Sinuses and mastoids: There is mild mucosal thickening within the left maxillary antrum and the left ethmoid sinuses. There is trace left mastoid effusion. Calvarium: Unremarkable. Cervical cord: Partially visualized cervical spinal cord is normal in morphology and signal intensity. IMPRESSION: No acute intracranial abnormality. ACT 112: Negative or not required by law. Electronically signed by: Sd Sutherland M.D. 03/08/2024 2:32 PM Knee X-Ray 03/08/24 09:43 RIGHT KNEE 2 VIEWS CLINICAL HISTORY: Recent fracture. FINDINGS: AP and crosstable lateral views of the right knee are compared to study dated 02/25/2024. The skeletal structures are osteopenic. There is unchanged appearance of a periprosthetic fracture of the proximal tibia. This involves the medial metadiaphyseal cortex, as well as the lateral tibial plateau as well as the cortex of the lateral tibial metaphysis. Alignment is unchanged from 02/25/2024. A left knee arthroplasty is in near anatomic alignment. The distal femur and proximal fibula appear intact. There has been undersurface remodeling of the patella. A small joint effusion persists. Soft tissue swelling is present around the knee. IMPRESSION: 1. There is unchanged alignment of a periprosthetic fracture of the proximal tibia. 2. No additional fracture is seen. 3. Soft tissue swelling and joint effusion. 4. A right knee arthroplasty is in near anatomic alignment. Electronically signed by: Sd Sutherland M.D. 03/08/2024 2:36 PM Knee X-Ray 03/08/24 09:43 XR knee LT 1 or 2V routine HISTORY: 73 years-old Female recent fx chronic bilateral knee pain COMPARISON: 02/25/2024 TECHNIQUE: 2 views of the left knee FINDINGS: Demineralized appearance of the bones. Total arthroplasty with patellar resurfacing. Moderate-sized joint effusion with prepatellar soft tissue swelling redemonstrated. Acute and displaced avulsion fracture of the tibial tuberosity redemonstrated with progressive anterosuperior displacement. Anterior displacement of 1.5 cm. IMPRESSION: Progressive anterosuperior displacement of the acute avulsion fracture of the tibial tuberosity. ACT 112: Negative or not required by law. The above report was generated using voice recognition software. It may contain grammatical, syntax or spelling errors. Electronically signed by: Jon Man M.D. 03/08/2024 2:53 PM Medications Administered Acetaminophen (Acetaminophen 325 Mg Tab) 650 mg PO Q4H PRN PRN Reason: Pain or Fever Stop: 04/06/24 17:20 Last Admin: 03/10/24 06:18 Dose: 650 mg Documented By: Admin: 03/10/24 01:53 Dose: 650 mg Documented By: Admin: 03/09/24 20:01 Dose: 650 mg Documented By: Admin: 03/09/24 15:20 Dose: 650 mg Documented By: Admin: 03/09/24 08:13 Dose: 650 mg Documented By: Admin: 03/09/24 03:56 Dose: 650 mg Documented By: Admin: 03/08/24 21:24 Dose: 650 mg Documented By: Admin: 03/08/24 12:41 Dose: 650 mg Documented By: Admin: 03/08/24 03:18 Dose: 650 mg Documented By: ESTEPHANIA Aspirin (Aspirin 81 Mg Ectab) 81 mg PO DAILY [facility] Stop: 04/07/24 08:59 Last Admin: 03/10/24 08:48 Dose: 81 mg Documented By: Admin: 03/09/24 08:08 Dose: 81 mg Documented By: Admin: 03/08/24 10:06 Dose: 81 mg Documented By: MARTHA Atenolol (Atenolol 25 Mg Tablet) 25 mg PO BID [facility] Stop: 04/08/24 20:59 Last Admin: 03/10/24 08:49 Dose: 25 mg Documented By: Admin: 03/09/24 21:24 Dose: 25 mg Documented By: YUAN Atorvastatin Calcium (Atorvastatin 10 Mg Tab) 10 mg PO [facility] Stop: 04/06/24 20:59 Last Admin: 03/09/24 21:21 Dose: 10 mg Documented By: Admin: 03/08/24 20:13 Dose: 10 mg Documented By: Admin: 03/07/24 21:41 Dose: 10 mg Documented By: Azathioprine (Azathioprine 50 Mg Tab) [facility] [place] Stop: 04/07/24 08:59 Last Admin: 03/10/24 08:48 Dose: 50 mg Documented By: Admin: 03/09/24 08:10 Dose: 50 mg Documented By: Admin: 03/08/24 09:22 Dose: 50 mg Documented By: MARTHA Azelastine HCl (Azelastine Hcl 0.1% Nasal 200 Sprays/27,400 Mcg Btl) 1 sprays JOSE LUIS BID [facility] Stop: 04/06/24 20:59 Last Admin: 03/10/24 08:50 Dose: Not Given Documented By: Admin: 03/09/24 21:26 Dose: Not Given Documented By: Admin: 03/09/24 08:06 Dose: Not Given Documented By: Admin: 03/08/24 20:22 Dose: Not Given Documented By: Admin: 03/08/24 09:23 Dose: Not Given Documented By: Admin: 03/07/24 21:42 Dose: Not Given Documented By: Bupropion HCl (Bupropion Xl 150 Mg Tabcr) 150 mg PO QAM [facility] Stop: 04/07/24 08:59 Last Admin: 03/10/24 08:48 Dose: 150 mg Documented By: Admin: 03/09/24 08:09 Dose: 150 mg Documented By: Admin: 03/08/24 10:06 Dose: 150 mg Documented By: MARTHA Buspirone HCl (Buspirone 5 Mg Tab) 10 mg PO TID [facility] Stop: 04/06/24 20:59 Last Admin: 03/10/24 08:49 Dose: 10 mg Documented By: Admin: 03/09/24 21:22 Dose: 10 mg Documented By: Admin: 03/09/24 14:34 Dose: 10 mg Documented By: Admin: 03/09/24 08:08 Dose: 10 mg Documented By: Admin: 03/08/24 22:08 Dose: 10 mg Documented By: Admin: 03/08/24 15:04 Dose: 10 mg Documented By: Admin: 03/08/24 09:22 Dose: 10 mg Documented By: Admin: 03/07/24 21:41 Dose: 10 mg Documented By: Calcium Carbonate (Calcium Carbonate 1250mg Tab) 1 tab PO BID [facility] Stop: 04/06/24 20:59 Last Admin: 03/10/24 08:47 Dose: 1 tab Documented By: Admin: 03/09/24 21:21 Dose: 1 tab Documented By: Admin: 03/09/24 08:09 Dose: 1 tab Documented By: Admin: 03/08/24 20:13 Dose: 1 tab Documented By: Admin: 03/08/24 09:22 Dose: 1 tab Documented By: Admin: 03/07/24 21:40 Dose: 1 tab Documented By: Cyanocobalamin (Cyanocobalamin (B-12) 2,500 Mcg Tablet) 5,000 mcg SL DAILY [facility] Stop: 04/07/24 08:59 Last Admin: 03/10/24 08:47 Dose: 5,000 mcg Documented By: Admin: 03/09/24 08:11 Dose: 5,000 mcg Documented By: Admin: 03/08/24 10:05 Dose: 5,000 mcg Documented By: AM Cyproheptadine HCl (Cyproheptadine Hcl 4 Mg Tab) 8 mg PO HS [facility] Stop: 04/06/24 20:59 Last Admin: 03/09/24 21:21 Dose: 8 mg Documented By: Admin: 03/08/24 20:13 Dose: 8 mg Documented By: Admin: 03/07/24 21:39 Dose: 8 mg Documented By: Enoxaparin Sodium (Enoxaparin Inj 40 Mg/0.4 Ml Syr) 40 mg SQ DAILY [facility] Stop: 04/07/24 08:59 Last Admin: 03/10/24 08:50 Dose: 40 mg Documented By: Admin: 03/09/24 08:14 Dose: 40 mg Documented By: Admin: 03/08/24 10:04 Dose: 40 mg Documented By: MARTHA Furosemide (Furosemide 20 Mg Tab) 20 mg PO DAILY [facility] Stop: 04/07/24 08:59 Last Admin: 03/10/24 08:47 Dose: 20 mg Documented By: Admin: 03/09/24 08:11 Dose: 20 mg Documented By: Admin: 03/08/24 10:06 Dose: 20 mg Documented By: AM Haloperidol Lactate (Haloperidol Lactate 5 Mg/Ml 1 Ml Vial) 2.5 mg IV Q8H PRN PRN Reason: hallucination/agitation Stop: 04/06/24 17:15 Last Admin: 03/07/24 18:40 Dose: 2.5 mg Documented By: HUNTER Hydroxyzine HCl (Hydroxyzine Hcl 10 Mg Tab) 10 mg PO Q8H PRN PRN Reason: Anxiety/Agitation Stop: 04/06/24 17:15 Last Admin: 03/10/24 06:18 Dose: 10 mg Documented By: Admin: 03/08/24 20:13 Dose: 10 mg Documented By: Admin: 03/08/24 02:40 Dose: 10 mg Documented By: Admin: 03/07/24 18:43 Dose: 10 mg Documented By: HUNTER Ceftriaxone Sodium (Rocephin) 2,000 mg in 50 mls @ 100 mls/hr IV Q24H [facility] Stop: 03/15/24 13:59 Last Infusion: 03/09/24 16:17 Dose: Infused Documented By: Admin: 03/09/24 15:25 Dose: 100 mls/hr Documented By: Infusion: 03/08/24 18:10 Dose: Infused Documented By: Admin: 03/08/24 17:32 Dose: 100 mls/hr Documented By: AM Lactobacillus Acidophilus (Advanced Probiotic 625 Mg Capsule) 1,250 mg PO DAILY [facility] Stop: 04/07/24 08:59 Last Admin: 03/10/24 08:48 Dose: 1,250 mg Documented By: Admin: 03/09/24 08:07 Dose: 1,250 mg Documented By: Admin: 03/08/24 10:06 Dose: 1,250 mg Documented By: MARTHA Lorazepam (Lorazepam 0.5 Mg Tab) 0.5 mg PO 0800,1400 [facility] Stop: 04/08/24 07:59 Last Admin: 03/10/24 08:46 Dose: 0.5 mg Documented By: Admin: 03/09/24 14:39 Dose: 0.5 mg Documented By: Admin: 03/09/24 08:16 Dose: 0.5 mg Documented By: BERNIE Lorazepam (Lorazepam 1 Mg Tab) 1 mg PO HS [facility] Stop: 04/07/24 20:59 Last Admin: 03/09/24 21:17 Dose: 1 mg Documented By: Admin: 03/08/24 22:08 Dose: 1 mg Documented By: KIRBY Losartan Potassium (Losartan Potassium 50 Mg Tab) 50 mg PO BID [facility] Stop: 04/07/24 08:59 Last Admin: 03/10/24 08:49 Dose: 50 mg Documented By: Admin: 03/09/24 21:24 Dose: 50 mg Documented By: Admin: 03/09/24 08:12 Dose: 50 mg Documented By: Admin: 03/08/24 20:13 Dose: 50 mg Documented By: AMSawyer Admin: 03/08/24 10:08 Dose: 50 mg Documented By: AM Magnesium Oxide (Magnesium Oxide 400 Mg Tab) 400 mg PO DAILY [facility] Stop: 04/07/24 08:59 Last Admin: 03/10/24 08:48 Dose: 400 mg Documented By: RDHien Admin: 03/09/24 08:07 Dose: 400 mg Documented By: Admin: 03/08/24 10:06 Dose: 400 mg Documented By: AM Melatonin (Melatonin 3 Mg Tab) 6 mg PO 2000 [facility] Stop: 04/07/24 19:59 Last Admin: 03/09/24 21:29 Dose: 6 mg Documented By: [facility] Admin: 03/08/24 20:13 Dose: 6 mg Documented By: CHANDAN Multivitamins/Minerals (Cerovite Adv Formula Tab) 1 tab PO DAILY [facility] Stop: 04/07/24 08:59 Last Admin: 03/10/24 08:49 Dose: 1 tab Documented By: Admin: 03/09/24 08:12 Dose: 1 tab Documented By: Admin: 03/08/24 10:08 Dose: 1 tab Documented By: MARTHA Nystatin (Nystatin Powder 15gm Btl) 1 appln EXT BID [facility] Stop: 04/07/24 20:59 Last Admin: 03/10/24 08:49 Dose: 1 appln Documented By: Admin: 03/09/24 21:17 Dose: 1 appln Documented By: Admin: 03/09/24 08:22 Dose: 1 appln Documented By: Admin: 03/08/24 23:27 Dose: Not Given Documented By: KIRBY Olanzapine (Olanzapine 2.5 Mg Tab) 2.5 mg PO Q8H PRN PRN Reason: Agitation Stop: 04/06/24 21:51 Last Admin: 03/08/24 22:58 Dose: 2.5 mg Documented By: Admin: 03/07/24 22:21 Dose: 2.5 mg Documented By: ARAM [facility]oprazole S[facility] ([facility] 40 Mg Tab) [facility] Stop: 04/07/24 06:29 Last Admin: 03/10/24 05:38 Dose: 40 mg Documented By: Admin: 03/09/24 06:13 Dose: 40 mg Documented By: Admin: 03/08/24 05:39 Dose: 40 mg Documented By: ZACH Polyethylene Glycol (Polyethylene (Miralax) 17 Gm Pack) 17 gm PO DAILY [facility] Stop: 04/07/24 09:44 Last Admin: 03/10/24 08:57 Dose: 17 gm Documented By: Admin: 03/09/24 08:16 Dose: 17 gm Documented By: Admin: 03/08/24 12:39 Dose: 17 gm Documented By: MARTHA Pramipexole Dihydrochloride (Pramipexole Dihydrochlo 0.5 Mg Tab) 0.5 mg PO Q8 [facility] Stop: 04/06/24 21:59 Last Admin: 03/10/24 05:38 Dose: 0.5 mg Documented By: Admin: 03/09/24 21:20 Dose: 0.5 mg Documented By: Admin: 03/09/24 15:21 Dose: 0.5 mg Documented By: Admin: 03/09/24 06:13 Dose: 0.5 mg Documented By: Admin: 03/08/24 22:08 Dose: 0.5 mg Documented By: Admin: 03/08/24 15:05 Dose: 0.5 mg Documented By: Admin: 03/08/24 05:39 Dose: 0.5 mg Documented By: Admin: 03/07/24 22:21 Dose: 0.5 mg Documented By: ARAM Sodium Chloride (Sodium Chloride 1 Gm Tablet) 1 gm PO DAILY [facility] Stop: 04/09/24 08:59 Last Admin: 03/10/24 08:47 Dose: 1 gm Documented By: ROSSI Valacyclovir HCl (Valacyclovir Hcl 500 Mg Tablet) 500 mg PO QAM [facility] Stop: 04/07/24 08:59 Last Admin: 03/10/24 08:48 Dose: 500 mg Documented By: Admin: 03/09/24 08:13 Dose: 500 mg Documented By: Admin: 03/08/24 10:07 Dose: 500 mg Documented By: MARTHA Vitamin D (Cholecalciferol 125 Mcg (5,000 Units) Tab) [facility] [place] Stop: 04/07/24 08:59 Last Admin: 03/10/24 08:48 Dose: 125 mcg Documented By: Admin: 03/09/24 08:11 Dose: 125 mcg Documented By: Admin: 03/08/24 10:07 Dose: 125 mcg Documented By: MARTHA Discontinued Medications Atenolol (Atenolol 25 Mg Tablet) 25 mg PO NOW STA Stop: 03/08/24 04:30 Last Admin: 03/08/24 04:45 Dose: 25 mg Documented By: ZACH Atenolol (Atenolol 25 Mg Tablet) 25 mg PO [facility] Stop: 04/08/24 08:59 Last Admin: 03/09/24 08:09 Dose: 25 mg Documented By: BERNIE Duloxetine HCl (Duloxetine Hcl 30 Mg Cap) 30 mg PO [facility] Stop: 04/07/24 08:59 Last Admin: 03/08/24 10:05 Dose: 30 mg Documented By: MARTHA Duloxetine HCl (Duloxetine Hcl 60 Mg Cap) 60 mg PO [facility] Stop: 03/10/24 09:01 Last Admin: 03/10/24 08:47 Dose: 60 mg Documented By: Admin: 03/09/24 08:08 Dose: 60 mg Documented By: BERNIE Gadobutrol (Gadobutrol 65ml Vial) 9 ml IV ONCE ONE Stop: 03/08/24 13:59 Last Admin: 03/08/24 13:58 Dose: 9 ml Documented By: NO Hydroxyzine HCl (Hydroxyzine Hcl 25 Mg Tab) Confirm Administered Dose 25 mg .ROUTE .STK-MED ONE Stop: 03/07/24 18:39 Last Admin: 03/07/24 18:50 Dose: Not Given Documented By: HUNTER Sodium Chloride (Nss) 1,000 mls @ 125 mls/hr IV .Q8H UTE Stop: 03/07/24 20:44 Last Admin: 03/07/24 13:36 Dose: Not Given Documented By: ARS Ceftriaxone Sodium (Rocephin) 2,000 mg in 50 mls @ 100 mls/hr IV NOW STA Stop: 03/07/24 13:47 Last Infusion: 03/07/24 23:09 Dose: Infused Documented By: Admin: 03/07/24 13:39 Dose: 100 mls/hr Documented By: HUNTER Sodium Chloride (Nss) 1,000 mls @ 100 mls/hr IV .Q10H STA Stop: 03/07/24 23:18 Last Infusion: 03/08/24 02:21 Dose: Infused Documented By: Admin: 03/07/24 13:34 Dose: 100 mls/hr Documented By: HUNTER Lorazepam 0.5 mg/ Syringe 0.5 mls @ 2 mls/min IV NOW STA Stop: 03/08/24 11:36 Last Admin: 03/08/24 12:39 Dose: 2 mls/min Documented By: MARTHA Oxycodone HCl (Oxycodone Hcl Ir 5 Mg Tab (Immediate Release)) 5 - 10 mg PO Q4H PRN PRN Reason: pain Stop: 03/21/24 17:22 Last Admin: 03/08/24 02:40 Dose: 5 mg Documented By: Admin: 03/07/24 22:54 Dose: 5 mg Documented By: ARAM Sodium Chloride (Sodium Chloride 1 Gm Tablet) 1 gm PO BID UTE Stop: 04/06/24 20:59 Last Admin: 03/09/24 21:21 Dose: 1 gm Documented By: Admin: 03/09/24 08:08 Dose: 1 gm Documented By: Admin: 03/08/24 20:13 Dose: 1 gm Documented By: Admin: 03/08/24 09:21 Dose: 1 gm Documented By: Admin: 03/07/24 21:39 Dose: 1 gm Documented By: (1) AMS (altered mental status) Altered mental status type: unspecified Qualified Code(s): R41.82 - Altered mental status, unspecified
[2024-03-11] MEDS: ACETAMINOPHEN W/CODEINE #3 1 TAB PO PRN (00:21)
[2024-03-11] MEDS: DULoxetine HCL 30 MG CAP PO SCH (08:08)
[2024-03-11 08:15] LABS: BUN Creatinine Ratio 30.4 (10-20); Calcium 9.1 mg/dl (8.6-10.3); Creatinine Clr Calc Pharmacy 116.7 ml/min; Est GFR (African American) 115.2 ml/min; Est GFR (Non-African American) 99.4 ml/min; Potassium 4.3 mmol/L (3.5-5.1)
--- NOTE | 2024-03-11 11:33 | Hospitalist Progress Note ---
Date of Service March 11, 2024 Assessment & Plan (1) AMS (altered mental status): Plan Per previous hospitalist notes with some daily updates, addendum: This is a 73-year-old female who has a significant PMHx of polymyositis, HTN, HLD, hypothyroidism, ILD, RLS, major depressive disorder, PTSD, anxiety and history of GERD who presented to ED secondary to visual hallucinations. Patient recently hospitalized 02/24 to 02/28 secondary to fall with right tibial fracture and avulsion fracture of the left condyle of left tibia. She underwent left knee washout with a total of 15 sutures. She is non-weightbearing to her bilateral lower extremities for approximately 2 to 3 months. She was also found to have acute on chronic hyponatremia. She was discharged to rehab in stable condition. While at [facility], patient and family upset with care. It is felt this triggered her PTSD. She had also been experiencing vivid visual hallucinations. She was referred to ED for further work-up. Right ankle cellulitis --> RESOLVED Likely metabolic encephalopathy Visual hallucinations Patient coming in with altered mentation Was noted to have right ankle cellulitis on admission IV ceftriaxone therapy stopped yesterday, cellulitis resolved Blood culture NGTD Venous doppler negative Pt had prior episodes in past associated with delirium in setting of hyponatremia Follows w/ [facility] She also has been evaluated by [facility] for cognitive testing and she did well, did not meet criteria for cognitive impairment MRI Brain w/o acute pathology, TSH normal Sx may also be exacerbated by poor sleep hygiene, PTSD and pain Visual hallucinations improving per pt Pt feeling much better today Psych consulted: recs as below Right tibial fracture Avulsion fracture of left condyle of left tibia Ambulatory restrictions Bilateral knee braces in place XR obtain and independently reviewed, alignment appropriate She was seen by Dr. Tanner Sutures to L knee were removed She will remain non-weightbearing for 3 months Follow up with Orthopedics in 4 weeks from 03/08 Pt will require hospital bed, bedside commode at home Will also need an at-home Charbel lift Need to get home health involved for d/c planning Hospital bed: The patient has a medical condition which requires positioning of the body in ways not feasible with ordinary bed. W/C: Home assessment that verifies patients home can accommodate a manual wheelchair with adequate access between rooms, maneuvering space and surfaces. 1. Patients mobility limitation impairs ability to participate in one or more activities such as toileting, feeding, dressing, grooming and bathing; and 2. Mobility limitation cannot be resolved by use of care or walker; and 3. Patient is able to safely use a manual wheelchair; 4. Patients functional mobility deficit can be resolved by use of a manual wheelchair and patient can maneuver the chair independently; or there is a caregiver to assist the patient with maneuvering; and 5. Patient has the strength to maneuver the wheelchair; and 6. Patient has a caregiver that can propel the chair. Acute on chronic hyponatremia: NA 132 today, history of SIADH and psychogenic polydipsia. Regular diet starting today. Stopping salt tablet. Will maintain fluid restriction of 1.5L/D, sodium seems to be improving. CAD: Chronic, stable Mild bilateral intracranial ICA stenosis Continue ASA and rosuvastatin Hypertension: Continue atenolol and Lasix --> Atenolol increased to BID dosing Resumed losartan 50mg BID 2/2 elevation in BP on Friday (03/08), will continue for now SBP currently holding steady in the ~130s-140s Losartan had to be stopped during last admission d/t low BP Continue to monitor BP; will continue to adjust meds as needed Dyslipidemia: Chronic, stable Takes rosuvastatin; continue Depression PTSD Anxiety Chronic Wellbutrin, BuSpar and Cymbalta --> Continue Follows w/ [facility] Psychiatry Pt with increased depressive/anxiety sx as well as paranoia on admission Psych consulted --> Recommended increasing Cymbalta to 60mg on 03/09 and 03/10, then further increase in dosing to 90mg daily starting on 03/11 Scheduled Ativan per psych --> 0.5mg dose in AM and afternoon, then 1mg dose HS Pt feels that Ativan is working well for her anxiety Sx are slowly improving, pt feeling much better today Psych to follow ILD: Chronic, stable Follows with pulmonary; Dr. Stanton TERRELL Takes azathioprine; continue Goals of Care: [facility]: Prefers to avoid blood transfusions Open to taking B12, folate and iron Takes vitamin B12 and folic acid; continue GERD: Chronic, stable Takes omeprazole; continue DVT Prophylaxis: Lovenox SQ FULL CODE PCP: Dr. Mark Dispo: Given strict non-weightbearing status, she will need home health involvement in preparation for discharge. Patient NOT interest in [facility]. Patient was seen and examined in collaboration with Dr. Rivera, please see addendum. A total of 45 minutes was spent coordinating, documenting, and providing care for this patient excluding time spent in the performance of separately billed services. This included personally viewing all current laboratories and imaging studies, medication reconciliation, outpatient chart review, and discussion with specialists. This chart was completed in part utilizing Speech Voice Recognition Software. Grammatical errors, random word insertions, pronoun errors, and incomplete sentences are an occasional consequence of this system due to software limitations, ambient noise, and hardware issues. Any formal questions or concerns about the content, text, or information contained within the body of this dictation should be directly addressed to the provider for clarification. Admission and Anticipated Discharge Date Admission Date: March 07, 2024 Supervising Physician Co-Signing Physician Notes Patient seen and examined independently. Discussed with above provider. Patient mentation is now at baseline. She is answering questions appropriately Prescription for hospital bed, Charbel lift and bedside commode provided to the case management. Will need home health set up at discharge. Discontinue salt tablets as patient is continuously hypertensive. Continue to restrict fluid to 1200 cc Possible DC in next few days after arrangement of home health, hospital bed and Charbel lift at home. I have reviewed the advanced practitioner's documentation, and I agree with, and take responsibility for the plan of care I spent a total of 25 minutes coordinating, documenting, and providing care for this patient excluding time spent in the performance of separately billed services. All of the aforementioned completed while collaborating with the assigned advanced practitioner for a full treatment plan Subjective Patient seen and examined in room E322-1. Her sister was visiting her this morning. Patient reports increasing improvement in her mental health symptoms. No longer having any visual hallucinations at the moment. Mentions she received the higher dose of Cymbalta today (90mg). Feels good about the dose increase, wants to continue improving her psychiatric health. Really doing much better today overall. She feels comfortable w/ the plans moving forward. Agreeable w/ pending plan for HH set-up and to have at-home medical assistive devices (hospital bed, bedside commode and Charbel lift). Denies any chest pain, SOB, abdominal pain or bowel/bladder habit changes. Review of Systems Review of Systems: At least ten systems reviewed and negative, except as noted in the HPI. Physical Exam Physical Exam: General: WD/WN, vitals as above, NAD. A+Ox3, pleasant. Conversing appropriately. HEENT: Normocephalic, atraumatic. Normal inspection, PERRL, conjunctivae normal, anicteric sclerae. External ear and nose normal, oropharynx normal. Respiratory: Normal respiratory effort, lungs clear to auscultation, no wheeze, rales, rhonchi. No accessory muscle use. Cardiovascular: Regular rate, rhythm, no murmur, normal peripheral pulses, no BLE edema. Vessels: No JVD. Abdomen/GI: Normal bowel sounds, soft, nontender, no hepatosplenomegaly. Extremities/Musculoskeletal: B/l knee immobilizers in place, neurovascularly intact distally. Neurologic: PERRL, EOMI, accommodation nl, no face palsy, no dysarthria. Skin: No rashes, normal color, warm/dry. Results & Data Results & Data Vital Signs (Past 12 Hours) Vital Signs Temp Pulse Resp BP Pulse Ox O2 Del Method 03/11/24 07:14 36.6 C 71 16 142/82 H 97 Room Air 03/11/24 00:32 36.9 C 73 18 141/78 H 96 Room Air Laboratory Results BMP 03/11/24 07:01 Sodium 132 L Potassium 4.3 Chloride 98 Carbon Dioxide 29 BUN 14 Creatinine 0.46 L Glucose 99 Calcium 9.1 Diagnostic Findings Chest X-Ray 03/07/24 12:37 XR chest 1V portable HISTORY: 73 years-old Female weakness COMPARISON: 01/22/2023 TECHNIQUE: AP view of the chest FINDINGS: Cardiac silhouette is mildly enlarged. Mild subsegmental bibasilar densities. Atherosclerosis. No pneumothorax or pleural effusion. Upper abdominal surgical clips. IMPRESSION: Cardiomegaly with mild bibasilar atelectasis. ACT 112: Negative or not required by law. The above report was generated using voice recognition software. It may contain grammatical, syntax or spelling errors. Electronically signed by: Jon Man M.D. 03/07/2024 2:[address] 03/07/24 12:38 CT head/brain wo con CLINICAL HISTORY: 73 years-old Female with AMS. Acutely altered mental status TECHNIQUE: Multiple axial CT images of the head were obtained without contrast. A dose lowering technique was utilized adhering to the principles of ALARA. CT DOSE: 547.75 mGy.cm COMPARISON: Head CT 01/22/2023 FINDINGS: Motion degraded exam. No acute intracranial hemorrhage, midline shift, intracranial mass, hydrocephalus, territorial ischemia or abnormal extra-axial collection. Involutional changes with white matter hypodensities suggestive of chronic microvascular ischemic disease. The calvarium is intact. Postoperative changes of the paranasal sinuses. Trace mastoid effusions. Right-sided lens repair. IMPRESSION: No acute intracranial abnormality identified. ACT 112: Negative or not required by law. The above report was generated using voice recognition software. It may contain grammatical, syntax or spelling errors. Electronically signed by: Jon Man M.D. 03/07/2024 1:03 PM Venous Doppler Study 03/07/24 17:16 BILATERAL LOWER EXTREMITY VENOUS DOPPLER HISTORY: Acute pain and swelling of the lower legs ro dvt COMPARISON STUDY: 05/16/2016 FINDINGS: Subcutaneous edema. There is normal compressibility, flow, and augmentation within the bilateral lower extremity deep venous systems. IMPRESSION: No DVT within the right or left lower extremity. ACT 112: Negative or not required by law. Electronically signed by: Jon Man M.D. 03/07/2024 6:30 PM Brain MRI 03/08/24 09:41 MRI OF THE BRAIN COMBO CLINICAL HISTORY: Change in mental status. Hallucinations. COMPARISON STUDY: CT of the brain dated 03/07/2024. TECHNIQUE: MRI of the brain was performed utilizing various T1 and T2-weighted sequences in the axial, sagittal, and coronal planes. Contrast-enhanced sequences were acquired following the administration of 9 cc of Gadavist. FINDINGS: Brain parenchyma: There is age-related involutional change noting minimal microangiopathic disease. There is no hemorrhage or mass effect. There is no restricted diffusion to suggest acute ischemia. No enhancing mass lesion is identified on the postcontrast images. Mejia-white matter differentiation is preserved. No extra-axial fluid collection is seen. The cerebellar tonsils are normal in configuration. Ventricles, sulci, and cisterns: Prominent secondary to involutional change. Pituitary and sella: Partially empty sella is incidentally noted. Intracranial vasculature: Normal flow voids are maintained at the skull base. Orbits: The bony orbits are grossly intact. Orbital contents are normal in appearance. Sinuses and mastoids: There is mild mucosal thickening within the left maxillary antrum and the left ethmoid sinuses. There is trace left mastoid effusion. Calvarium: Unremarkable. Cervical cord: Partially visualized cervical spinal cord is normal in morphology and signal intensity. IMPRESSION: No acute intracranial abnormality. ACT 112: Negative or not required by law. Electronically signed by: Sd Sutherland M.D. 03/08/2024 2:32 PM Knee X-Ray 03/08/24 09:43 RIGHT KNEE 2 VIEWS CLINICAL HISTORY: Recent fracture. FINDINGS: AP and crosstable lateral views of the right knee are compared to study dated 02/25/2024. The skeletal structures are osteopenic. There is unchanged appearance of a periprosthetic fracture of the proximal tibia. This involves the medial metadiaphyseal cortex, as well as the lateral tibial plateau as well as the cortex of the lateral tibial metaphysis. Alignment is unchanged from 02/25/2024. A left knee arthroplasty is in near anatomic alignment. The distal femur and proximal fibula appear intact. There has been undersurface remodeling of the patella. A small joint effusion persists. Soft tissue swelling is present around the knee. IMPRESSION: 1. There is unchanged alignment of a periprosthetic fracture of the proximal tibia. 2. No additional fracture is seen. 3. Soft tissue swelling and joint effusion. 4. A right knee arthroplasty is in near anatomic alignment. Electronically signed by: Sd Sutherland M.D. 03/08/2024 2:36 PM Knee X-Ray 03/08/24 09:43 XR knee LT 1 or 2V routine HISTORY: 73 years-old Female recent fx chronic bilateral knee pain COMPARISON: 02/25/2024 TECHNIQUE: 2 views of the left knee FINDINGS: Demineralized appearance of the bones. Total arthroplasty with patellar resurfacing. Moderate-sized joint effusion with prepatellar soft tissue swelling redemonstrated. Acute and displaced avulsion fracture of the tibial tuberosity redemonstrated with progressive anterosuperior displacement. Anterior displacement of 1.5 cm. IMPRESSION: Progressive anterosuperior displacement of the acute avulsion fracture of the tibial tuberosity. ACT 112: Negative or not required by law. The above report was generated using voice recognition software. It may contain grammatical, syntax or spelling errors. Electronically signed by: Jon Man M.D. 03/08/2024 2:53 PM Medications Administered Acetaminophen (Acetaminophen 325 Mg Tab) 650 mg PO Q4H PRN PRN Reason: Pain or Fever Stop: 04/06/24 17:20 Last Admin: 03/11/24 08:05 Dose: 650 mg Documented By: Admin: 03/11/24 02:20 Dose: 650 mg Documented By: HFGrady Admin: 03/10/24 20:45 Dose: 650 mg Documented By: HFGrady Admin: 03/10/24 13:59 Dose: 650 mg Documented By: Admin: 03/10/24 06:18 Dose: 650 mg Documented By: HFGrady Admin: 03/10/24 01:53 Dose: 650 mg Documented By: Admin: 03/09/24 20:01 Dose: 650 mg Documented By: Admin: 03/09/24 15:20 Dose: 650 mg Documented By: Admin: 03/09/24 08:13 Dose: 650 mg Documented By: Admin: 03/09/24 03:56 Dose: 650 mg Documented By: Admin: 03/08/24 21:24 Dose: 650 mg Documented By: Admin: 03/08/24 12:41 Dose: 650 mg Documented By: Admin: 03/08/24 03:18 Dose: 650 mg Documented By: ESTEPHANIA Aspirin (Aspirin 81 Mg Ectab) 81 mg PO DAILY [facility] Stop: 04/07/24 08:59 Last Admin: 03/11/24 08:07 Dose: 81 mg Documented By: Admin: 03/10/24 08:48 Dose: 81 mg Documented By: Admin: 03/09/24 08:08 Dose: 81 mg Documented By: Admin: 03/08/24 10:06 Dose: 81 mg Documented By: AM Atenolol (Atenolol 25 Mg Tablet) 25 mg PO BID [facility] Stop: 04/08/24 20:59 Last Admin: 03/11/24 08:09 Dose: 25 mg Documented By: Admin: 03/10/24 20:48 Dose: 25 mg Documented By: Admin: 03/10/24 08:49 Dose: 25 mg Documented By: Admin: 03/09/24 21:24 Dose: 25 mg Documented By: HFW Atorvastatin Calcium (Atorvastatin 10 Mg Tab) 10 mg PO HS [facility] Stop: 04/06/24 20:59 Last Admin: 03/10/24 20:48 Dose: 10 mg Documented By: Admin: 03/09/24 21:21 Dose: 10 mg Documented By: Admin: 03/08/24 20:13 Dose: 10 mg Documented By: Admin: 03/07/24 21:41 Dose: 10 mg Documented By: Azathioprine (Azathioprine 50 Mg Tab) [facility] [place] Stop: 04/07/24 08:59 Last Admin: 03/11/24 08:08 Dose: 50 mg Documented By: Admin: 03/10/24 08:48 Dose: 50 mg Documented By: Admin: 03/09/24 08:10 Dose: 50 mg Documented By: [facility] Admin: 03/08/24 09:22 Dose: 50 mg Documented By: MARTHA Azelastine HCl (Azelastine Hcl 0.1% Nasal 200 Sprays/27,400 Mcg Btl) 1 sprays JOSE LUIS BID [facility] Stop: 04/06/24 20:59 Last Admin: 03/11/24 08:09 Dose: Not Given Documented By: Admin: 03/10/24 20:49 Dose: Not Given Documented By: [facility] Admin: 03/10/24 08:50 Dose: Not Given Documented By: Admin: 03/09/24 21:26 Dose: Not Given Documented By: W Admin: 03/09/24 08:06 Dose: Not Given Documented By: Admin: 03/08/24 20:22 Dose: Not Given Documented By: Admin: 03/08/24 09:23 Dose: Not Given Documented By: Admin: 03/07/24 21:42 Dose: Not Given Documented By: Bupropion HCl (Bupropion Xl 150 Mg Tabcr) [facility] [place] Stop: 04/07/24 08:59 Last Admin: 03/11/24 08:08 Dose: 150 mg Documented By: Admin: 03/10/24 08:48 Dose: 150 mg Documented By: Admin: 03/09/24 08:09 Dose: 150 mg Documented By: Admin: 03/08/24 10:06 Dose: 150 mg Documented By: MARTHA Buspirone HCl (Buspirone 5 Mg Tab) 10 mg PO TID UTE Stop: 04/06/24 20:59 Last Admin: 03/11/24 08:10 Dose: 10 mg Documented By: Admin: 03/10/24 20:47 Dose: 10 mg Documented By: Admin: 03/10/24 13:53 Dose: 10 mg Documented By: Admin: 03/10/24 08:49 Dose: 10 mg Documented By: Admin: 03/09/24 21:22 Dose: 10 mg Documented By: Admin: 03/09/24 14:34 Dose: 10 mg Documented By: Admin: 03/09/24 08:08 Dose: 10 mg Documented By: Admin: 03/08/24 22:08 Dose: 10 mg Documented By: Admin: 03/08/24 15:04 Dose: 10 mg Documented By: Admin: 03/08/24 09:22 Dose: 10 mg Documented By: Admin: 03/07/24 21:41 Dose: 10 mg Documented By: Calcium Carbonate (Calcium Carbonate 1250mg Tab) 1 tab PO BID UTE Stop: 04/06/24 20:59 Last Admin: 03/11/24 08:09 Dose: 1 tab Documented By: Admin: 03/10/24 20:47 Dose: 1 tab Documented By: Admin: 03/10/24 08:47 Dose: 1 tab Documented By: Admin: 03/09/24 21:21 Dose: 1 tab Documented By: Admin: 03/09/24 08:09 Dose: 1 tab Documented By: Admin: 03/08/24 20:13 Dose: 1 tab Documented By: Admin: 03/08/24 09:22 Dose: 1 tab Documented By: Admin: 03/07/24 21:40 Dose: 1 tab Documented By: Cyanocobalamin (Cyanocobalamin (B-12) 2,500 Mcg Tablet) 5,000 mcg SL DAILY UTE Stop: 04/07/24 08:59 Last Admin: 03/11/24 08:07 Dose: 5,000 mcg Documented By: Admin: 03/10/24 08:47 Dose: 5,000 mcg Documented By: Admin: 03/09/24 08:11 Dose: 5,000 mcg Documented By: Admin: 03/08/24 10:05 Dose: 5,000 mcg Documented By: AM Cyproheptadine HCl (Cyproheptadine Hcl 4 Mg Tab) 8 mg PO HS UTE Stop: 04/06/24 20:59 Last Admin: 03/10/24 20:47 Dose: 8 mg Documented By: Admin: 03/09/24 21:21 Dose: 8 mg Documented By: Admin: 03/08/24 20:13 Dose: 8 mg Documented By: Admin: 03/07/24 21:39 Dose: 8 mg Documented By: Duloxetine HCl (Duloxetine Hcl 30 Mg Cap) 90 mg PO QAM UTE Stop: 04/10/24 08:59 Last Admin: 03/11/24 08:08 Dose: 90 mg Documented By: ROSSI Enoxaparin Sodium (Enoxaparin Inj 40 Mg/0.4 Ml Syr) 40 mg SQ DAILY UTE Stop: 04/07/24 08:59 Last Admin: 03/11/24 08:10 Dose: 40 mg Documented By: Admin: 03/10/24 08:50 Dose: 40 mg Documented By: Admin: 03/09/24 08:14 Dose: 40 mg Documented By: Admin: 03/08/24 10:04 Dose: 40 mg Documented By: AM Furosemide (Furosemide 20 Mg Tab) 20 mg PO DAILY UTE Stop: 04/07/24 08:59 Last Admin: 03/11/24 08:07 Dose: 20 mg Documented By: MIGUEL AL Admin: 03/10/24 08:47 Dose: 20 mg Documented By: RDHien Admin: 03/09/24 08:11 Dose: 20 mg Documented By: Admin: 03/08/24 10:06 Dose: 20 mg Documented By: AM Haloperidol Lactate (Haloperidol Lactate 5 Mg/Ml 1 Ml Vial) 2.5 mg IV Q8H PRN PRN Reason: hallucination/agitation Stop: 04/06/24 17:15 Last Admin: 03/07/24 18:40 Dose: 2.5 mg Documented By: HUNTER Hydroxyzine HCl (Hydroxyzine Hcl 10 Mg Tab) 10 mg PO Q8H PRN PRN Reason: Anxiety/Agitation Stop: 04/06/24 17:15 Last Admin: 03/10/24 06:18 Dose: 10 mg Documented By: Admin: 03/08/24 20:13 Dose: 10 mg Documented By: Admin: 03/08/24 02:40 Dose: 10 mg Documented By: Admin: 03/07/24 18:43 Dose: 10 mg Documented By: HUNTER Lactobacillus Acidophilus (Advanced Probiotic 625 Mg Capsule) 1,250 mg PO DAILY UTE Stop: 04/07/24 08:59 Last Admin: 03/11/24 08:08 Dose: 1,250 mg Documented By: Admin: 03/10/24 08:48 Dose: 1,250 mg Documented By: Admin: 03/09/24 08:07 Dose: 1,250 mg Documented By: Admin: 03/08/24 10:06 Dose: 1,250 mg Documented By: MARTHA Lorazepam (Lorazepam 0.5 Mg Tab) 0.5 mg PO 0800,1400 [facility] Stop: 04/08/24 07:59 Last Admin: 03/11/24 08:05 Dose: 0.5 mg Documented By: Admin: 03/10/24 13:53 Dose: 0.5 mg Documented By: Admin: 03/10/24 08:46 Dose: 0.5 mg Documented By: Admin: 03/09/24 14:39 Dose: 0.5 mg Documented By: Admin: 03/09/24 08:16 Dose: 0.5 mg Documented By: BERNIE Lorazepam (Lorazepam 1 Mg Tab) 1 mg PO HS UTE Stop: 04/07/24 20:59 Last Admin: 03/10/24 20:45 Dose: 1 mg Documented By: Admin: 03/09/24 21:17 Dose: 1 mg Documented By: Admin: 03/08/24 22:08 Dose: 1 mg Documented By: KIRBY Losartan Potassium (Losartan Potassium 50 Mg Tab) 50 mg PO BID UTE Stop: 04/07/24 08:59 Last Admin: 03/11/24 08:06 Dose: 50 mg Documented By: Admin: 03/10/24 20:46 Dose: 50 mg Documented By: Admin: 03/10/24 08:49 Dose: 50 mg Documented By: Admin: 03/09/24 21:24 Dose: 50 mg Documented By: Admin: 03/09/24 08:12 Dose: 50 mg Documented By: Admin: 03/08/24 20:13 Dose: 50 mg Documented By: Admin: 03/08/24 10:08 Dose: 50 mg Documented By: AM Magnesium Oxide (Magnesium Oxide 400 Mg Tab) 400 mg PO DAILY UTE Stop: 04/07/24 08:59 Last Admin: 03/11/24 08:08 Dose: 400 mg Documented By: Admin: 03/10/24 08:48 Dose: 400 mg Documented By: Admin: 03/09/24 08:07 Dose: 400 mg Documented By: Admin: 03/08/24 10:06 Dose: 400 mg Documented By: MARTHA Melatonin (Melatonin 3 Mg Tab) 6 mg PO 2000 [facility] Stop: 04/07/24 19:59 Last Admin: 03/10/24 20:44 Dose: 6 mg Documented By: Admin: 03/09/24 21:29 Dose: 6 mg Documented By: [facility] Admin: 03/08/24 20:13 Dose: 6 mg Documented By: CHANDAN Multivitamins/Minerals (Cerovite Adv Formula Tab) 1 tab PO DAILY [facility] Stop: 04/07/24 08:59 Last Admin: 03/11/24 08:07 Dose: 1 tab Documented By: Admin: 03/10/24 08:49 Dose: 1 tab Documented By: Admin: 03/09/24 08:12 Dose: 1 tab Documented By: Admin: 03/08/24 10:08 Dose: 1 tab Documented By: MARTHA Nystatin (Nystatin Powder 15gm Btl) 1 appln EXT BID UTE Stop: 04/07/24 20:59 Last Admin: 03/11/24 08:10 Dose: 1 appln Documented By: Admin: 03/10/24 20:49 Dose: 1 appln Documented By: W Admin: 03/10/24 08:49 Dose: 1 appln Documented By: Admin: 03/09/24 21:17 Dose: 1 appln Documented By: Admin: 03/09/24 08:22 Dose: 1 appln Documented By: Admin: 03/08/24 23:27 Dose: Not Given Documented By: KIRBY Olanzapine (Olanzapine 2.5 Mg Tab) 2.5 mg PO Q8H PRN PRN Reason: Agitation Stop: 04/06/24 21:51 Last Admin: 03/11/24 00:21 Dose: 2.5 mg Documented By: Admin: 03/08/24 22:58 Dose: 2.5 mg Documented By: Admin: 03/07/24 22:21 Dose: 2.5 mg Documented By: ARAM Pantoprazole Sodium (Pantoprazole 40 Mg Tab) 40 mg PO DAILYBB [facility] Stop: 04/07/24 06:29 Last Admin: 03/11/24 05:52 Dose: 40 mg Documented By: Admin: 03/10/24 05:38 Dose: 40 mg Documented By: Admin: 03/09/24 06:13 Dose: 40 mg Documented By: Admin: 03/08/24 05:39 Dose: 40 mg Documented By: ZACH Polyethylene Glycol (Polyethylene (Miralax) 17 Gm Pack) 17 gm PO DAILY UTE Stop: 04/07/24 09:44 Last Admin: 03/11/24 08:10 Dose: Not Given Documented By: Admin: 03/10/24 08:57 Dose: 17 gm Documented By: Admin: 03/09/24 08:16 Dose: 17 gm Documented By: Admin: 03/08/24 12:39 Dose: 17 gm Documented By: MARTHA Pramipexole Dihydrochloride (Pramipexole Dihydrochlo 0.5 Mg Tab) 0.5 mg PO Q8 UTE Stop: 04/06/24 21:59 Last Admin: 03/11/24 05:52 Dose: 0.5 mg Documented By: Admin: 03/10/24 22:18 Dose: 0.5 mg Documented By: Admin: 03/10/24 13:54 Dose: 0.5 mg Documented By: Admin: 03/10/24 05:38 Dose: 0.5 mg Documented By: Admin: 03/09/24 21:20 Dose: 0.5 mg Documented By: Admin: 03/09/24 15:21 Dose: 0.5 mg Documented By: Admin: 03/09/24 06:13 Dose: 0.5 mg Documented By: Admin: 03/08/24 22:08 Dose: 0.5 mg Documented By: Admin: 03/08/24 15:05 Dose: 0.5 mg Documented By: Admin: 03/08/24 05:39 Dose: 0.5 mg Documented By: Admin: 03/07/24 22:21 Dose: 0.5 mg Documented By: ARAM Valacyclovir HCl (Valacyclovir Hcl 500 Mg Tablet) [facility] [place]: 04/07/24 08:59 Last Admin: 03/11/24 08:09 Dose: 500 mg Documented By: Admin: 03/10/24 08:48 Dose: 500 mg Documented By: Admin: 03/09/24 08:13 Dose: 500 mg Documented By: Admin: 03/08/24 10:07 Dose: 500 mg Documented By: MARTHA Vitamin D (Cholecalciferol 125 Mcg (5,000 Units) Tab) 125 [facility] [place]: 04/07/24 08:59 Last Admin: 03/11/24 08:07 Dose: 125 mcg Documented By: Admin: 03/10/24 08:48 Dose: 125 mcg Documented By: Admin: 03/09/24 08:11 Dose: 125 mcg Documented By: Admin: 03/08/24 10:07 Dose: 125 mcg Documented By: MARTHA Discontinued Medications Acetaminophen/Codeine Phosphate (Acetaminophen W/Codeine #3 1 Tab) 1 tab PO Q4H PRN PRN Reason: Pain Stop: 04/09/24 23:30 Last Admin: 03/11/24 00:21 Dose: 1 tab Documented By: YUAN Atenolol (Atenolol 25 Mg Tablet) 25 mg PO NOW [facility] Stop: 03/08/24 04:30 Last Admin: 03/08/24 04:45 Dose: 25 mg Documented By: ZACH Atenolol (Atenolol 25 Mg Tablet) [facility] [place]: 04/08/24 08:59 Last Admin: 03/09/24 08:09 Dose: 25 mg Documented By: BERNIE Duloxetine HCl (Duloxetine Hcl 30 Mg Cap) [facility] [place]: 04/07/24 08:59 Last Admin: 03/08/24 10:05 Dose: 30 mg Documented By: AM Duloxetine HCl (Duloxetine Hcl 60 Mg Cap) 60 mg PO QAM UTE Stop: 03/10/24 09:01 Last Admin: 03/10/24 08:47 Dose: 60 mg Documented By: Admin: 03/09/24 08:08 Dose: 60 mg Documented By: BERNIE Gadobutrol (Gadobutrol 65ml Vial) 9 ml IV ONCE ONE Stop: 03/08/24 13:59 Last Admin: 03/08/24 13:58 Dose: 9 ml Documented By: NO Hydroxyzine HCl (Hydroxyzine Hcl 25 Mg Tab) Confirm Administered Dose 25 mg .ROUTE .STK-MED ONE Stop: 03/07/24 18:39 Last Admin: 03/07/24 18:50 Dose: Not Given Documented By: HUNTER Sodium Chloride (Nss) 1,000 mls @ 125 mls/hr IV .Q8H UTE Stop: 03/07/24 20:44 Last Admin: 03/07/24 13:36 Dose: Not Given Documented By: HUNTER Ceftriaxone Sodium (Rocephin) 2,000 mg in 50 mls @ 100 mls/hr IV NOW STA Stop: 03/07/24 13:47 Last Infusion: 03/07/24 23:09 Dose: Infused Documented By: Admin: 03/07/24 13:39 Dose: 100 mls/hr Documented By: HUNTER Sodium Chloride (Nss) 1,000 mls @ 100 mls/hr IV .Q10H STA Stop: 03/07/24 23:18 Last Infusion: 03/08/24 02:21 Dose: Infused Documented By: Admin: 03/07/24 13:34 Dose: 100 mls/hr Documented By: HUNTER Ceftriaxone Sodium (Rocephin) 2,000 mg in 50 mls @ 100 mls/hr IV Q24H UTE Stop: 03/15/24 13:59 Last Infusion: 03/09/24 16:17 Dose: Infused Documented By: Admin: 03/09/24 15:25 Dose: 100 mls/hr Documented By: Infusion: 03/08/24 18:10 Dose: Infused Documented By: Admin: 03/08/24 17:32 Dose: 100 mls/hr Documented By: AM Lorazepam 0.5 mg/ Syringe 0.5 mls @ 2 mls/min IV NOW STA Stop: 03/08/24 11:36 Last Admin: 03/08/24 12:39 Dose: 2 mls/min Documented By: MARTHA Oxycodone HCl (Oxycodone Hcl Ir 5 Mg Tab (Immediate Release)) 5 - 10 mg PO Q4H PRN PRN Reason: pain Stop: 03/21/24 17:22 Last Admin: 03/08/24 02:40 Dose: 5 mg Documented By: Admin: 03/07/24 22:54 Dose: 5 mg Documented By: ARAM Sodium Chloride (Sodium Chloride 1 Gm Tablet) 1 gm PO BID UTE Stop: 04/06/24 20:59 Last Admin: 03/09/24 21:21 Dose: 1 gm Documented By: Admin: 03/09/24 08:08 Dose: 1 gm Documented By: Admin: 03/08/24 20:13 Dose: 1 gm Documented By: Admin: 03/08/24 09:21 Dose: 1 gm Documented By: Admin: 03/07/24 21:39 Dose: 1 gm Documented By: Sodium Chloride (Sodium Chloride 1 Gm Tablet) 1 gm PO DAILY UTE Stop: 04/09/24 08:59 Last Admin: 03/11/24 08:09 Dose: 1 gm Documented By: Admin: 03/10/24 08:47 Dose: 1 gm Documented By: ROSSI (1) AMS (altered mental status) Altered mental status type: unspecified Qualified Code(s): R41.82 - Altered mental status, unspecified
[2024-03-12 07:54] LABS: BUN Creatinine Ratio 31.9 (10-20); Calcium 9.3 mg/dl (8.6-10.3); Creatinine Clr Calc Pharmacy 111.9 ml/min; Est GFR (African American) 114.4 ml/min; Est GFR (Non-African American) 98.7 ml/min; Potassium 4.1 mmol/L (3.5-5.1)
--- NOTE | 2024-03-12 10:22 | Hospitalist Progress Note ---
Date of Service March 12, 2024 Assessment & Plan (1) AMS (altered mental status): Plan Per previous hospitalist notes with some daily updates, addendum: This is a 73-year-old female who has a significant PMHx of polymyositis, HTN, HLD, hypothyroidism, ILD, RLS, major depressive disorder, PTSD, anxiety and history of GERD who presented to ED secondary to visual hallucinations. Patient recently hospitalized 02/24 to 02/28 secondary to fall with right tibial fracture and avulsion fracture of the left condyle of left tibia. She underwent left knee washout with a total of 15 sutures. She is non-weightbearing to her bilateral lower extremities for approximately 2 to 3 months. She was also found to have acute on chronic hyponatremia. She was discharged to rehab in stable condition. While at [facility], patient and family upset with care. It is felt this triggered her PTSD. She had also been experiencing vivid visual hallucinations. She was referred to ED for further work-up. Right ankle cellulitis --> RESOLVED Likely metabolic encephalopathy Visual hallucinations Patient coming in with altered mentation Was noted to have right ankle cellulitis on admission IV ceftriaxone therapy completed, cellulitis resolved Blood culture NGTD Venous doppler negative Pt had prior episodes in past associated with delirium in setting of hyponatremia Follows w/ [facility] She also has been evaluated by Neuropsych for cognitive testing and she did well, did not meet criteria for cognitive impairment MRI Brain w/o acute pathology, TSH normal Sx may also be exacerbated by poor sleep hygiene, PTSD and pain Pt had some visual hallucinations last night - suspect 2/2 drop in sodium overnight Psych consulted: recs as below Right tibial fracture Avulsion fracture of left condyle of left tibia Ambulatory restrictions Bilateral knee braces XR obtain and independently reviewed, alignment appropriate She was seen by Dr. Tanner Sutures to L knee were removed She will remain non-weightbearing for 3 months Follow up with Orthopedics in 4 weeks from 03/08 Pt will require hospital bed Will need bedside commode at home Will also need an at-home Charbel lift Need to get home health involved for d/c planning Hospital Bed: The patient has a medical condition which requires positioning of the body in ways not feasible with ordinary bed. Requires frequent changes in body position. Charbel Lift: Patient requires lift to transfer from bed to wheelchair or will be confined to bed. Bedside Commode: Patient is confined to room with no toilet. W/C: Home assessment that verifies patients home can accommodate a manual wheelchair with adequate access between rooms, maneuvering space and surfaces. 1. Patients mobility limitation impairs ability to participate in one or more activities such as toileting, feeding, dressing, grooming and bathing; and 2. Mobility limitation cannot be resolved by use of care or walker; and 3. Patient is able to safely use a manual wheelchair; 4. Patients functional mobility deficit can be resolved by use of a manual wheelchair and patient can maneuver the chair independently; or there is a caregiver to assist the patient with maneuvering; and 5. Patient has the strength to maneuver the wheelchair; and 6. Patient has a caregiver that can propel the chair. Acute on chronic hyponatremia: NA dropped to 126 today, history of SIADH and psychogenic polydipsia. Stopped salt tablets and initiated regular diet yesterday. Will start patient on urea today. Will maintain fluid restriction of 1.5L/D for now. Nephrology consult placed, appreciate their recommendations and input moving forward. Repeat BMP tomorrow AM. CAD: Chronic, stable Mild bilateral intracranial ICA stenosis Continue ASA and rosuvastatin Hypertension: Continue atenolol and Lasix --> Atenolol increased to BID dosing Resumed losartan 50mg BID 2/2 elevation in BP on Friday (03/08), will continue for now SBP currently holding steady in the ~150s-160s Losartan had to be stopped during last admission d/t low BP Continue to monitor BP; will continue to adjust meds as needed Dyslipidemia: Chronic, stable Takes rosuvastatin; continue Depression PTSD Anxiety Chronic Wellbutrin, BuSpar and Cymbalta --> Continue Follows w/ [facility] Pt with increased depressive/anxiety sx as well as paranoia on admission Psych consulted --> Recommended increasing Cymbalta to 60mg on 03/09 and 03/10, then further increase in dosing to 90mg daily starting on 03/11 Pt agreeable to Cymbalta dosing increase - feels it's working Scheduled Ativan per psych --> 0.5mg dose in AM and afternoon, then 1mg dose HS Pt feels that Ativan is working well for her anxiety Pt experienced some hallucinations episodes last night - suspect 2/2 drop in sodium level overnight Will start hydroxyzine 10mg HS Will make pt aware of this new med Psych to follow ILD: Chronic, stable Follows with pulmonary; Dr. Stanton TERRELL Takes azathioprine; continue Goals of Care: Mosque: Prefers to avoid blood transfusions Open to taking B12, folate and iron Takes vitamin B12 and folic acid; continue GERD: Chronic, stable Takes omeprazole; continue Hx of Vit B12 Deficiency --> Patient's daughter requesting that we check her vitamin B12 level. Takes vitamin B12 and folic acid as per above Plan to check this today, pt agreeable with doing so Will make patient aware of level once result is available DVT Prophylaxis: Lovenox SQ FULL CODE PCP: Dr. Mark Dispo: Given strict non-weightbearing status, she will need home health involvement in preparation for discharge to home. Patient NOT interest in [facility]. Patient was seen and examined in collaboration with Dr. Rivera, please see addendum. A total of 45 minutes was spent coordinating, documenting, and providing care for this patient excluding time spent in the performance of separately billed services. This included personally viewing all current laboratories and imaging studies, medication reconciliation, outpatient chart review, and discussion with specialists. This chart was completed in part utilizing Speech Voice Recognition Software. Grammatical errors, random word insertions, pronoun errors, and incomplete sentences are an occasional consequence of this system due to software limitations, ambient noise, and hardware issues. Any formal questions or concerns about the content, text, or information contained within the body of this dictation should be directly addressed to the provider for clarification. Admission and Anticipated Discharge Date Admission Date: March 07, 2024 Supervising Physician Co-Signing Physician Notes Patient seen and examined independently. Discussed with above provider. Overnight, patient had period of confusion; she reports she was not able to get enough sleep. Her serum sodium level is decreased to 126. Patient has history of hypertension; will continue to hold salt tablets Started on oral urea 15 g twice daily. Continue fluid restriction Nephrology consulted Urine electrolytes shows urine sodium level of 93. I have reviewed the advanced practitioner's documentation, and I agree with, and take responsibility for the plan of care I spent a total of 35 minutes coordinating, documenting, and providing care for this patient excluding time spent in the performance of separately billed services. All of the aforementioned completed while collaborating with the assigned advanced practitioner for a full treatment plan Subjective Patient seen and examined in room E322-1. Her daughter was visiting her this morning - believe her name was Deanna. Patient notes that she had some visual hallucinations last night. Daughter states that she was "seeing pierce" on the far side of the room. She is not having any visual hallucinations this morning. Only had those occurrences last night per her daughter. Made patient and her daughter aware of the drop in her sodium level this morning. They are both agreeable with her being seen by nephrology today and with starting urea. Patient's daughter requesting that her vit B12 level be checked given hx of low levels. She continues to be comfortable and agreeable with the plans moving forward. Denies any chest pain, SOB, abdominal pain or bowel/bladder habit changes. Review of Systems Review of Systems: At least ten systems reviewed and negative, except as noted in the HPI. Physical Exam Physical Exam: General: WD/WN, vitals as above, NAD. A+Ox3, very pleasant. Conversing appropriately. HEENT: Normocephalic, atraumatic. Normal inspection, PERRL, conjunctivae normal, anicteric sclerae. External ear and nose normal, oropharynx normal. Respiratory: Normal respiratory effort, lungs clear to auscultation, no wheeze, rales, rhonchi. No accessory muscle use. Cardiovascular: Regular rate, rhythm, no murmur, normal peripheral pulses, no BLE edema. Vessels: No JVD. Abdomen/GI: Normal bowel sounds, soft, nontender, no hepatosplenomegaly. Extremities/Musculoskeletal: B/l knee immobilizers were removed this morning, neurovascularly intact distally. Neurologic: PERRL, EOMI, accommodation nl, no face palsy, no dysarthria. Skin: No rashes, normal color, warm/dry. Results & Data Results & Data Vital Signs (Past 12 Hours) Vital Signs Temp Pulse Resp BP Pulse Ox O2 Del Method 03/12/24 07:45 37.4 C 70 16 163/81 H 96 Room Air Laboratory Results BMP 03/12/24 06:49 Sodium 126 L Potassium 4.1 Chloride 94 L Carbon Dioxide 27 BUN 15 Creatinine 0.47 L Glucose 98 Calcium 9.3 Diagnostic Findings Chest X-Ray 03/07/24 12:37 XR chest 1V portable HISTORY: 73 years-old Female weakness COMPARISON: 01/22/2023 TECHNIQUE: AP view of the chest FINDINGS: Cardiac silhouette is mildly enlarged. Mild subsegmental bibasilar densities. Atherosclerosis. No pneumothorax or pleural effusion. Upper abdominal surgical clips. IMPRESSION: Cardiomegaly with mild bibasilar atelectasis. ACT 112: Negative or not required by law. The above report was generated using voice recognition software. It may contain grammatical, syntax or spelling errors. Electronically signed by: Jon Man M.D. 03/07/2024 2:[address] 03/07/24 12:38 CT head/brain wo con CLINICAL HISTORY: 73 years-old Female with AMS. Acutely altered mental status TECHNIQUE: Multiple axial CT images of the head were obtained without contrast. A dose lowering technique was utilized adhering to the principles of ALARA. CT DOSE: 547.75 mGy.cm COMPARISON: Head CT 01/22/2023 FINDINGS: Motion degraded exam. No acute intracranial hemorrhage, midline shift, intracranial mass, hydrocephalus, territorial ischemia or abnormal extra-axial collection. Involutional changes with white matter hypodensities suggestive of chronic microvascular ischemic disease. The calvarium is intact. Postoperative changes of the paranasal sinuses. Trace mastoid effusions. Right-sided lens repair. IMPRESSION: No acute intracranial abnormality identified. ACT 112: Negative or not required by law. The above report was generated using voice recognition software. It may contain grammatical, syntax or spelling errors. Electronically signed by: Jon Man M.D. 03/07/2024 1:03 PM Venous Doppler Study 03/07/24 17:16 BILATERAL LOWER EXTREMITY VENOUS DOPPLER HISTORY: Acute pain and swelling of the lower legs ro dvt COMPARISON STUDY: 05/16/2016 FINDINGS: Subcutaneous edema. There is normal compressibility, flow, and aug mentation within the bilateral lower extremity deep venous systems. IMPRESSION: No DVT within the right or left lower extremity. ACT 112: Negative or not required by law. Electronically signed by: Jon Man M.D. 03/07/2024 6:30 PM Brain MRI 03/08/24 09:41 MRI OF THE BRAIN COMBO CLINICAL HISTORY: Change in mental status. Hallucinations. COMPARISON STUDY: CT of the brain dated 03/07/2024. TECHNIQUE: MRI of the brain was performed utilizing various T1 and T2-weighted sequences in the axial, sagittal, and coronal planes. Contrast-enhanced sequences were acquired following the administration of 9 cc of Gadavist. FINDINGS: Brain parenchyma: There is age-related involutional change noting minimal microangiopathic disease. There is no hemorrhage or mass effect. There is no restricted diffusion to suggest acute ischemia. No enhancing mass lesion is identified on the postcontrast images. Mejia-white matter differentiation is preserved. No extra-axial fluid collection is seen. The cerebellar tonsils are normal in configuration. Ventricles, sulci, and cisterns: Prominent secondary to involutional change. Pituitary and sella: Partially empty sella is incidentally noted. Intracranial vasculature: Normal flow voids are maintained at the skull base. Orbits: The bony orbits are grossly intact. Orbital contents are normal in appearance. Sinuses and mastoids: There is mild mucosal thickening within the left maxillary antrum and the left ethmoid sinuses. There is trace left mastoid effusion. Calvarium: Unremarkable. Cervical cord: Partially visualized cervical spinal cord is normal in morphology and signal intensity. IMPRESSION: No acute intracranial abnormality. ACT 112: Negative or not required by law. Electronically signed by: Sd Sutherland M.D. 03/08/2024 2:32 PM Knee X-Ray 03/08/24 09:43 RIGHT KNEE 2 VIEWS CLINICAL HISTORY: Recent fracture. FINDINGS: AP and crosstable lateral views of the right knee are compared to study dated 02/25/2024. The skeletal structures are osteopenic. There is unchanged appearance of a periprosthetic fracture of the proximal tibia. This involves the medial metadiaphyseal cortex, as well as the lateral tibial plateau as well as the cortex of the lateral tibial metaphysis. Alignment is unchanged from 02/25/2024. A left knee arthroplasty is in near anatomic alignment. The distal femur and proximal fibula appear intact. There has been undersurface remodeling of the patella. A small joint effusion persists. Soft tissue swelling is present around the knee. IMPRESSION: 1. There is unchanged alignment of a periprosthetic fracture of the proximal tibia. 2. No additional fracture is seen. 3. Soft tissue swelling and joint effusion. 4. A right knee arthroplasty is in near anatomic alignment. Electronically signed by: Sd Sutherland M.D. 03/08/2024 2:36 PM Knee X-Ray 03/08/24 09:43 XR knee LT 1 or 2V routine HISTORY: 73 years-old Female recent fx chronic bilateral knee pain COMPARISON: 02/25/2024 TECHNIQUE: 2 views of the left knee FINDINGS: Demineralized appearance of the bones. Total arthroplasty with patellar resurfacing. Moderate-sized joint effusion with prepatellar soft tissue swelling redemonstrated. Acute and displaced avulsion fracture of the tibial tuberosity redemonstrated with progressive anterosuperior displacement. Anterior displacement of 1.5 cm. IMPRESSION: Progressive anterosuperior displacement of the acute avulsion fracture of the tibial tuberosity. ACT 112: Negative or not required by law. The above report was generated using voice recognition software. It may contain grammatical, syntax or spelling errors. Electronically signed by: Jon Man M.D. 03/08/2024 2:53 PM Medications Administered Acetaminophen (Acetaminophen 325 Mg Tab) 650 mg PO Q4H PRN PRN Reason: Pain or Fever Stop: 04/06/24 17:20 Last Admin: 03/12/24 05:19 Dose: 650 mg Documented By: Admin: 03/12/24 00:07 Dose: 650 mg Documented By: Admin: 03/11/24 18:51 Dose: 650 mg Documented By: Admin: 03/11/24 14:19 Dose: 650 mg Documented By: Admin: 03/11/24 08:05 Dose: 650 mg Documented By: RDHien Admin: 03/11/24 02:20 Dose: 650 mg Documented By: Admin: 03/10/24 20:45 Dose: 650 mg Documented By: Admin: 03/10/24 13:59 Dose: 650 mg Documented By: Admin: 03/10/24 06:18 Dose: 650 mg Documented By: HFGrady Admin: 03/10/24 01:53 Dose: 650 mg Documented By: Admin: 03/09/24 20:01 Dose: 650 mg Documented By: Admin: 03/09/24 15:20 Dose: 650 mg Documented By: Admin: 03/09/24 08:13 Dose: 650 mg Documented By: Admin: 03/09/24 03:56 Dose: 650 mg Documented By: Admin: 03/08/24 21:24 Dose: 650 mg Documented By: Admin: 03/08/24 12:41 Dose: 650 mg Documented By: Admin: 03/08/24 03:18 Dose: 650 mg Documented By: ESTEPHANIA Aspirin (Aspirin 81 Mg Ectab) 81 mg PO DAILY UTE Stop: 04/07/24 08:59 Last Admin: 03/12/24 08:59 Dose: 81 mg Documented By: Admin: 03/11/24 08:07 Dose: 81 mg Documented By: Admin: 03/10/24 08:48 Dose: 81 mg Documented By: Admin: 03/09/24 08:08 Dose: 81 mg Documented By: Admin: 03/08/24 10:06 Dose: 81 mg Documented By: MARTHA Atenolol (Atenolol 25 Mg Tablet) 25 mg PO BID UTE Stop: 04/08/24 20:59 Last Admin: 03/12/24 08:59 Dose: 25 mg Documented By: Admin: 03/11/24 20:27 Dose: 25 mg Documented By: Admin: 03/11/24 08:09 Dose: 25 mg Documented By: Admin: 03/10/24 20:48 Dose: 25 mg Documented By: Admin: 03/10/24 08:49 Dose: 25 mg Documented By: Admin: 03/09/24 21:24 Dose: 25 mg Documented By: YUAN Atorvastatin Calcium (Atorvastatin 10 Mg Tab) 10 mg PO HS UTE Stop: 04/06/24 20:59 Last Admin: 03/11/24 20:31 Dose: 10 mg Documented By: Admin: 03/10/24 20:48 Dose: 10 mg Documented By: Admin: 03/09/24 21:21 Dose: 10 mg Documented By: Admin: 03/08/24 20:13 Dose: 10 mg Documented By: Admin: 03/07/24 21:41 Dose: 10 mg Documented By: Azathioprine (Azathioprine 50 Mg Tab) 50 mg PO QAM UTE Stop: 04/07/24 08:59 Last Admin: 03/12/24 09:00 Dose: 50 mg Documented By: Admin: 03/11/24 08:08 Dose: 50 mg Documented By: Admin: 03/10/24 08:48 Dose: 50 mg Documented By: Admin: 03/09/24 08:10 Dose: 50 mg Documented By: Admin: 03/08/24 09:22 Dose: 50 mg Documented By: MARTHA Azelastine HCl (Azelastine Hcl 0.1% Nasal 200 Sprays/27,400 Mcg Btl) 1 sprays JOSE LUIS BID UTE Stop: 04/06/24 20:59 Last Admin: 03/12/24 09:02 Dose: Not Given Documented By: Admin: 03/11/24 20:26 Dose: Not Given Documented By: Admin: 03/11/24 08:09 Dose: Not Given Documented By: Admin: 03/10/24 20:49 Dose: Not Given Documented By: Admin: 03/10/24 08:50 Dose: Not Given Documented By: Admin: 03/09/24 21:26 Dose: Not Given Documented By: Admin: 03/09/24 08:06 Dose: Not Given Documented By: Admin: 03/08/24 20:22 Dose: Not Given Documented By: Admin: 03/08/24 09:23 Dose: Not Given Documented By: Admin: 03/07/24 21:42 Dose: Not Given Documented By: Bupropion HCl (Bupropion Xl 150 Mg Tabcr) 150 mg PO QAM [facility] Stop: 04/07/24 08:59 Last Admin: 03/12/24 09:00 Dose: 150 mg Documented By: Admin: 03/11/24 08:08 Dose: 150 mg Documented By: Admin: 03/10/24 08:48 Dose: 150 mg Documented By: Admin: 03/09/24 08:09 Dose: 150 mg Documented By: Admin: 03/08/24 10:06 Dose: 150 mg Documented By: MARTHA Buspirone HCl (Buspirone 5 Mg Tab) 10 mg PO TID [facility] Stop: 04/06/24 20:59 Last Admin: 03/12/24 09:01 Dose: 10 mg Documented By: Admin: 03/11/24 20:29 Dose: 10 mg Documented By: Admin: 03/11/24 13:32 Dose: 10 mg Documented By: Admin: 03/11/24 08:10 Dose: 10 mg Documented By: Admin: 03/10/24 20:47 Dose: 10 mg Documented By: Admin: 03/10/24 13:53 Dose: 10 mg Documented By: Admin: 03/10/24 08:49 Dose: 10 mg Documented By: Admin: 03/09/24 21:22 Dose: 10 mg Documented By: Admin: 03/09/24 14:34 Dose: 10 mg Documented By: Admin: 03/09/24 08:08 Dose: 10 mg Documented By: Admin: 03/08/24 22:08 Dose: 10 mg Documented By: Admin: 03/08/24 15:04 Dose: 10 mg Documented By: Admin: 03/08/24 09:22 Dose: 10 mg Documented By: Admin: 03/07/24 21:41 Dose: 10 mg Documented By: Calcium Carbonate (Calcium Carbonate 1250mg Tab) 1 tab PO BID UTE Stop: 04/06/24 20:59 Last Admin: 03/12/24 09:00 Dose: 1 tab Documented By: Admin: 03/11/24 20:29 Dose: 1 tab Documented By: Admin: 03/11/24 08:09 Dose: 1 tab Documented By: Admin: 03/10/24 20:47 Dose: 1 tab Documented By: Admin: 03/10/24 08:47 Dose: 1 tab Documented By: Admin: 03/09/24 21:21 Dose: 1 tab Documented By: Admin: 03/09/24 08:09 Dose: 1 tab Documented By: Admin: 03/08/24 20:13 Dose: 1 tab Documented By: Admin: 03/08/24 09:22 Dose: 1 tab Documented By: Admin: 03/07/24 21:40 Dose: 1 tab Documented By: Cyanocobalamin (Cyanocobalamin (B-12) 2,500 Mcg Tablet) 5,000 mcg SL DAILY UTE Stop: 04/07/24 08:59 Last Admin: 03/12/24 08:59 Dose: 5,000 mcg Documented By: Admin: 03/11/24 08:07 Dose: 5,000 mcg Documented By: Admin: 03/10/24 08:47 Dose: 5,000 mcg Documented By: Admin: 03/09/24 08:11 Dose: 5,000 mcg Documented By: Admin: 03/08/24 10:05 Dose: 5,000 mcg Documented By: AM Cyproheptadine HCl (Cyproheptadine Hcl 4 Mg Tab) 8 mg PO HS UTE Stop: 04/06/24 20:59 Last Admin: 03/11/24 20:30 Dose: 8 mg Documented By: Admin: 03/10/24 20:47 Dose: 8 mg Documented By: Admin: 03/09/24 21:21 Dose: 8 mg Documented By: Admin: 03/08/24 20:13 Dose: 8 mg Documented By: Admin: 03/07/24 21:39 Dose: 8 mg Documented By: Duloxetine HCl (Duloxetine Hcl 30 Mg Cap) 90 mg PO QAM UTE Stop: 04/10/24 08:59 Last Admin: 03/12/24 08:59 Dose: 90 mg Documented By: Admin: 03/11/24 08:08 Dose: 90 mg Documented By: ROSSI Enoxaparin Sodium (Enoxaparin Inj 40 Mg/0.4 Ml Syr) 40 mg SQ DAILY UTE Stop: 04/07/24 08:59 Last Admin: 03/12/24 09:00 Dose: 40 mg Documented By: Admin: 03/11/24 08:10 Dose: 40 mg Documented By: Admin: 03/10/24 08:50 Dose: 40 mg Documented By: Admin: 03/09/24 08:14 Dose: 40 mg Documented By: Admin: 03/08/24 10:04 Dose: 40 mg Documented By: AM Furosemide (Furosemide 20 Mg Tab) 20 mg PO DAILY UTE Stop: 04/07/24 08:59 Last Admin: 03/12/24 08:59 Dose: 20 mg Documented By: Admin: 03/11/24 08:07 Dose: 20 mg Documented By: Admin: 03/10/24 08:47 Dose: 20 mg Documented By: Admin: 03/09/24 08:11 Dose: 20 mg Documented By: Admin: 03/08/24 10:06 Dose: 20 mg Documented By: AM Haloperidol Lactate (Haloperidol Lactate 5 Mg/Ml 1 Ml Vial) 2.5 mg IV Q8H PRN PRN Reason: hallucination/agitation Stop: 04/06/24 17:15 Last Admin: 03/07/24 18:40 Dose: 2.5 mg Documented By: HUNTER Hydroxyzine HCl (Hydroxyzine Hcl 10 Mg Tab) 10 mg PO Q8H PRN PRN Reason: Anxiety/Agitation Stop: 04/06/24 17:15 Last Admin: 03/12/24 01:50 Dose: 10 mg Documented By: Admin: 03/10/24 06:18 Dose: 10 mg Documented By: Admin: 03/08/24 20:13 Dose: 10 mg Documented By: Admin: 03/08/24 02:40 Dose: 10 mg Documented By: Admin: 03/07/24 18:43 Dose: 10 mg Documented By: HUNTER Lactobacillus Acidophilus (Advanced Probiotic 625 Mg Capsule) 1,250 mg PO DAILY UTE Stop: 04/07/24 08:59 Last Admin: 03/12/24 08:59 Dose: 1,250 mg Documented By: Admin: 03/11/24 08:08 Dose: 1,250 mg Documented By: Admin: 03/10/24 08:48 Dose: 1,250 mg Documented By: Admin: 03/09/24 08:07 Dose: 1,250 mg Documented By: Admin: 03/08/24 10:06 Dose: 1,250 mg Documented By: MARTHA Lorazepam (Lorazepam 0.5 Mg Tab) 0.5 mg PO 0800,1400 UTE Stop: 04/08/24 07:59 Last Admin: 03/12/24 08:59 Dose: 0.5 mg Documented By: Admin: 03/11/24 13:32 Dose: 0.5 mg Documented By: Admin: 03/11/24 08:05 Dose: 0.5 mg Documented By: Admin: 03/10/24 13:53 Dose: 0.5 mg Documented By: Admin: 03/10/24 08:46 Dose: 0.5 mg Documented By: Admin: 03/09/24 14:39 Dose: 0.5 mg Documented By: Admin: 03/09/24 08:16 Dose: 0.5 mg Documented By: BERNIE Lorazepam (Lorazepam 1 Mg Tab) 1 mg PO HS UTE Stop: 04/07/24 20:59 Last Admin: 03/11/24 20:37 Dose: 1 mg Documented By: Admin: 03/10/24 20:45 Dose: 1 mg Documented By: Admin: 03/09/24 21:17 Dose: 1 mg Documented By: Admin: 03/08/24 22:08 Dose: 1 mg Documented By: KIRBY Losartan Potassium (Losartan Potassium 50 Mg Tab) 50 mg PO BID UTE Stop: 04/07/24 08:59 Last Admin: 03/12/24 08:59 Dose: 50 mg Documented By: Admin: 03/11/24 20:32 Dose: 50 mg Documented By: Admin: 03/11/24 08:06 Dose: 50 mg Documented By: Admin: 03/10/24 20:46 Dose: 50 mg Documented By: Admin: 03/10/24 08:49 Dose: 50 mg Documented By: Admin: 03/09/24 21:24 Dose: 50 mg Documented By: Admin: 03/09/24 08:12 Dose: 50 mg Documented By: Admin: 03/08/24 20:13 Dose: 50 mg Documented By: Admin: 03/08/24 10:08 Dose: 50 mg Documented By: MARTHA Magnesium Oxide (Magnesium Oxide 400 Mg Tab) 400 mg PO DAILY UTE Stop: 04/07/24 08:59 Last Admin: 03/12/24 08:59 Dose: 400 mg Documented By: Admin: 03/11/24 08:08 Dose: 400 mg Documented By: Admin: 03/10/24 08:48 Dose: 400 mg Documented By: Admin: 03/09/24 08:07 Dose: 400 mg Documented By: Admin: 03/08/24 10:06 Dose: 400 mg Documented By: MARTHA Melatonin (Melatonin 3 Mg Tab) 6 mg PO 2000 UTE Stop: 04/07/24 19:59 Last Admin: 03/11/24 20:27 Dose: 6 mg Documented By: Admin: 03/10/24 20:44 Dose: 6 mg Documented By: Admin: 03/09/24 21:29 Dose: 6 mg Documented By: Admin: 03/08/24 20:13 Dose: 6 mg Documented By: AMM Multivitamins/Minerals (Cerovite Adv Formula Tab) 1 tab PO DAILY UTE Stop: 04/07/24 08:59 Last Admin: 03/12/24 08:59 Dose: 1 tab Documented By: Admin: 03/11/24 08:07 Dose: 1 tab Documented By: Admin: 03/10/24 08:49 Dose: 1 tab Documented By: Admin: 03/09/24 08:12 Dose: 1 tab Documented By: Admin: 03/08/24 10:08 Dose: 1 tab Documented By: MARTHA Nystatin (Nystatin Powder 15gm Btl) 1 appln EXT BID UTE Stop: 04/07/24 20:59 Last Admin: 03/11/24 20:31 Dose: 1 appln Documented By: Admin: 03/11/24 08:10 Dose: 1 appln Documented By: Admin: 03/10/24 20:49 Dose: 1 appln Documented By: Admin: 03/10/24 08:49 Dose: 1 appln Documented By: Admin: 03/09/24 21:17 Dose: 1 appln Documented By: Admin: 03/09/24 08:22 Dose: 1 appln Documented By: Admin: 03/08/24 23:27 Dose: Not Given Documented By: KIRBY Olanzapine (Olanzapine 2.5 Mg Tab) 2.5 mg PO Q8H PRN PRN Reason: Agitation Stop: 04/06/24 21:51 Last Admin: 03/12/24 00:07 Dose: 2.5 mg Documented By: Admin: 03/11/24 00:21 Dose: 2.5 mg Documented By: Admin: 03/08/24 22:58 Dose: 2.5 mg Documented By: Admin: 03/07/24 22:21 Dose: 2.5 mg Documented By: ARAM Pantoprazole Sodium (Pantoprazole 40 Mg Tab) 40 mg PO DAILYBB [facility] Stop: 04/07/24 06:29 Last Admin: 03/12/24 05:20 Dose: 40 mg Documented By: Admin: 03/11/24 05:52 Dose: 40 mg Documented By: Admin: 03/10/24 05:38 Dose: 40 mg Documented By: Admin: 03/09/24 06:13 Dose: 40 mg Documented By: Admin: 03/08/24 05:39 Dose: 40 mg Documented By: ZACH Polyethylene Glycol (Polyethylene (Miralax) 17 Gm Pack) 17 gm PO DAILY [facility] Stop: 04/07/24 09:44 Last Admin: 03/12/24 09:00 Dose: 17 gm Documented By: Admin: 03/11/24 08:10 Dose: Not Given Documented By: Admin: 03/10/24 08:57 Dose: 17 gm Documented By: Admin: 03/09/24 08:16 Dose: 17 gm Documented By: Admin: 03/08/24 12:39 Dose: 17 gm Documented By: MARTHA Pramipexole Dihydrochloride (Pramipexole Dihydrochlo 0.5 Mg Tab) 0.5 mg PO Q8 UTE Stop: 04/06/24 21:59 Last Admin: 03/12/24 05:19 Dose: 0.5 mg Documented By: Admin: 03/11/24 20:28 Dose: 0.5 mg Documented By: Admin: 03/11/24 13:32 Dose: 0.5 mg Documented By: Admin: 03/11/24 05:52 Dose: 0.5 mg Documented By: Admin: 03/10/24 22:18 Dose: 0.5 mg Documented By: Admin: 03/10/24 13:54 Dose: 0.5 mg Documented By: Admin: 03/10/24 05:38 Dose: 0.5 mg Documented By: Admin: 03/09/24 21:20 Dose: 0.5 mg Documented By: Admin: 03/09/24 15:21 Dose: 0.5 mg Documented By: Admin: 03/09/24 06:13 Dose: 0.5 mg Documented By: Admin: 03/08/24 22:08 Dose: 0.5 mg Documented By: Admin: 03/08/24 15:05 Dose: 0.5 mg Documented By: Admin: 03/08/24 05:39 Dose: 0.5 mg Documented By: Admin: 03/07/24 22:21 Dose: 0.5 mg Documented By: ARAM Valacyclovir HCl (Valacyclovir Hcl 500 Mg Tablet) 500 mg PO QAM UTE Stop: 04/07/24 08:59 Last Admin: 03/12/24 08:59 Dose: 500 mg Documented By: Admin: 03/11/24 08:09 Dose: 500 mg Documented By: Admin: 03/10/24 08:48 Dose: 500 mg Documented By: Admin: 03/09/24 08:13 Dose: 500 mg Documented By: Admin: 03/08/24 10:07 Dose: 500 mg Documented By: MARTHA Vitamin D (Cholecalciferol 125 Mcg (5,000 Units) Tab) 125 mcg PO QAM UTE Stop: 04/07/24 08:59 Last Admin: 03/12/24 08:59 Dose: 125 mcg Documented By: Admin: 03/11/24 08:07 Dose: 125 mcg Documented By: Admin: 03/10/24 08:48 Dose: 125 mcg Documented By: Admin: 03/09/24 08:11 Dose: 125 mcg Documented By: Admin: 03/08/24 10:07 Dose: 125 mcg Documented By: MARTHA Discontinued Medications Acetaminophen/Codeine Phosphate (Acetaminophen W/Codeine #3 1 Tab) 1 tab PO Q4H PRN PRN Reason: Pain Stop: 04/09/24 23:30 Last Admin: 03/11/24 00:21 Dose: 1 tab Documented By: YUAN Atenolol (Atenolol 25 Mg Tablet) 25 mg PO NOW STA Stop: 03/08/24 04:30 Last Admin: 03/08/24 04:45 Dose: 25 mg Documented By: ZACH Atenolol (Atenolol 25 Mg Tablet) 25 mg PO QAM UTE Stop: 04/08/24 08:59 Last Admin: 03/09/24 08:09 Dose: 25 mg Documented By: BERNIE Duloxetine HCl (Duloxetine Hcl 30 Mg Cap) 30 mg PO QAM UTE Stop: 04/07/24 08:59 Last Admin: 03/08/24 10:05 Dose: 30 mg Documented By: MARTHA Duloxetine HCl (Duloxetine Hcl 60 Mg Cap) 60 mg PO QAM UTE Stop: 03/10/24 09:01 Last Admin: 03/10/24 08:47 Dose: 60 mg Documented By: Admin: 03/09/24 08:08 Dose: 60 mg Documented By: BERNIE Gadobutrol (Gadobutrol 65ml Vial) 9 ml IV ONCE ONE Stop: 03/08/24 13:59 Last Admin: 03/08/24 13:58 Dose: 9 ml Documented By: NO Hydroxyzine HCl (Hydroxyzine Hcl 25 Mg Tab) Confirm Administered Dose 25 mg .ROUTE .STK-MED ONE Stop: 03/07/24 18:39 Last Admin: 03/07/24 18:50 Dose: Not Given Documented By: HUNTER Sodium Chloride (Nss) 1,000 mls @ 125 mls/hr IV .Q8H UTE Stop: 03/07/24 20:44 Last Admin: 03/07/24 13:36 Dose: Not Given Documented By: HUNTER Ceftriaxone Sodium (Rocephin) 2,000 mg in 50 mls @ 100 mls/hr IV NOW STA Stop: 03/07/24 13:47 Last Infusion: 03/07/24 23:09 Dose: Infused Documented By: Admin: 03/07/24 13:39 Dose: 100 mls/hr Documented By: HUNTER Sodium Chloride (Nss) 1,000 mls @ 100 mls/hr IV .Q10H STA Stop: 03/07/24 23:18 Last Infusion: 03/08/24 02:21 Dose: Infused Documented By: Admin: 03/07/24 13:34 Dose: 100 mls/hr Documented By: HUNTER Ceftriaxone Sodium (Rocephin) 2,000 mg in 50 mls @ 100 mls/hr IV Q24H UTE Stop: 03/15/24 13:59 Last Infusion: 03/09/24 16:17 Dose: Infused Documented By: Admin: 03/09/24 15:25 Dose: 100 mls/hr Documented By: Infusion: 03/08/24 18:10 Dose: Infused Documented By: Admin: 03/08/24 17:32 Dose: 100 mls/hr Documented By: AM Lorazepam 0.5 mg/ Syringe 0.5 mls @ 2 mls/min IV NOW STA Stop: 03/08/24 11:36 Last Admin: 03/08/24 12:39 Dose: 2 mls/min Documented By: AM Oxycodone HCl (Oxycodone Hcl Ir 5 Mg Tab (Immediate Release)) 5 - 10 mg PO Q4H PRN PRN Reason: pain Stop: 03/21/24 17:22 Last Admin: 03/08/24 02:40 Dose: 5 mg Documented By: Admin: 03/07/24 22:54 Dose: 5 mg Documented By: ARAM Sodium Chloride (Sodium Chloride 1 Gm Tablet) 1 gm PO BID UTE Stop: 04/06/24 20:59 Last Admin: 03/09/24 21:21 Dose: 1 gm Documented By: Admin: 03/09/24 08:08 Dose: 1 gm Documented By: Admin: 03/08/24 20:13 Dose: 1 gm Documented By: Admin: 03/08/24 09:21 Dose: 1 gm Documented By: Admin: 03/07/24 21:39 Dose: 1 gm Documented By: Sodium Chloride (Sodium Chloride 1 Gm Tablet) 1 gm PO DAILY [facility] Stop: 04/09/24 08:59 Last Admin: 03/11/24 08:09 Dose: 1 gm Documented By: Admin: 03/10/24 08:47 Dose: 1 gm Documented By: ROSSI (1) AMS (altered mental status) Altered mental status type: unspecified Qualified Code(s): R41.82 - Altered mental status, unspecified
[2024-03-12] MEDS: UREA (UREA-NA) 15 GM PACK PO SCH (11:03)
--- NOTE | 2024-03-12 11:32 | Nephrology Consultation ---
Date of Consultation March 12, 2024 Assessment & Plan (1) Chronic hyponatremia: moderate chronic hyponatremia, abruptly worse today. no clear cause for that. most c/w SIADH Goal sNa for labs tomorrow am no more than 132 -continue urea 15 gm bid for now > has only had one dose so far; reevaluate basic metabolic panel in a.m. -continue FR 1.2 L, look to liberalize to 1.5 liters as tolerated; modified fluid limit order so that protein shakes do not count towards total fluid allowed in 1 day >consider intensifying diuretic regimen -avoid systemic nsaids; topicals ok -maintain eukalemia -control pain since uncontrolled pain promotes ADH release; pain well controlled currently History of Present Illness Reason for Consultation: hyponatremia Requesting Physician: Dr Rivera Attending Physician: Javier Rivera MD History of Present Illness 73 y/o F whom I'm asked to see for hyponatremia was readmitted here March 07 w/ altered MS in the setting of RLE cellulitis and chronic hyponatremia. 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 When I evaluated her in January 2023 for same issue of hyponatremia, she carried a diagnosis of polymyositis and was on methotrexate therapy for this. She had been d/c after admission here earlier this month for fractures after a fall in hallway outside her apartment to [facility] but returned to [facility] b/c of dissatisfaction w/ care there and also noted to be altered in the late afternoon/evening 03/10 at [facility] w/ visual/auditory hallucinations noted by family and pt. of note she was not discharged on February 28 from here with salt tablets or Lasix or FR. Discharge sodium was 129. Her sodium at [facility] on admission was 125 on March 01 and unchanged on March 04. On March 05 and , sodium was 129. During this timeframe on these labs potassium was within normal limits and creatinine 0.5. Patient admitted here on salt tablets 1 g twice daily and on 20 mg daily Lasix. She has had chronic hyponatremia over the past year at least and consistently for several years prior as well. Her sodium was 128 on arrival and is 126 today. Sodium had been at 1 31-1 32 since day after admission until yesterday. Currently on a 1.2 L fluid limit Currently receiving Lasix 20 mg daily for several days and urea 15 g twice daily started this morning. She has had 4 doses of Zyprexa and a dose of Haldol. Head CT and brain MRI both negative for acute intracranial process. Chest x-ray reports mild bibasilar atelectasis. She denies shortness of breath, uncontrolled pain, cough. No edema. Feels her urine output has picked up some today. No nausea vomiting. No hallucinations today. She tells me she has had issues intermittently with hallucinations for the past year or so. Her appetite has been hit and miss. She does like protein shakes. Tolerating fluid limit so far. Allergies Allergy/AdvReac Type Severity Reaction Status Date / Time diphenhydramine Allergy Intermediate Hallucinati Verified 02/25/24 17:04 [From Benadryl] ng morphine AdvReac Severe Low BP Verified 02/25/24 17:04 gabapentin AdvReac Intermediate swelling Verified 02/25/24 17:04 of lower legs lisinopril AdvReac Intermediate Cough Verified 02/25/24 17:04 pregabalin [From Lyrica] AdvReac Intermediate sweating/ho Verified 02/25/24 17:04 t Home Medications Medication Instructions Recorded Confirmed Type bupropion HCl 150 mg 24 hr tablet, 150 mg PO QAM 07/11/19 03/07/24 History extended release (Wellbutrin XL) buspirone 10 mg tablet 10 mg PO .EVERY 8 HRS 07/11/19 03/07/24 History cholecalciferol (vitamin D3) 125 5,000 unit PO QAM 07/11/19 03/07/24 History mcg (5,000 unit) tablet (Vitamin D3) cyproheptadine 4 mg tablet 8 mg PO HS 07/11/19 03/07/24 History docusate sodium 100 mg capsule 100 mg PO [facility] 07/11/19 03/07/24 History ferrous sulfate 325 mg (65 mg 325 mg PO Q2D 07/11/19 03/07/24 History iron) tablet folic acid 1 mg tablet 1 mg PO QAM 07/11/19 03/07/24 History omeprazole 20 mg capsule,delayed 20 mg PO [facility] 07/11/19 03/07/24 History release atenolol 25 mg tablet 25 mg PO QAM 08/19/22 03/07/24 History levothyroxine 88 mcg tablet 88 mcg PO DAILYBB 08/19/22 03/07/24 History meclizine 12.5 mg tablet 12.5 mg PO TID PRN Dizziness 01/22/23 03/07/24 History ondansetron HCl 4 mg tablet 4 mg PO Q6 PRN Nausea 01/22/23 03/07/24 History valacyclovir 500 mg tablet 500 mg PO QAM 01/22/23 03/07/24 History azathioprine 50 mg tablet 50 mg PO QAM 11/25/23 03/07/24 History azelastine 137 mcg (0.1 %) nasal 1 spray intranasal .Q 12 HRS 02/25/24 03/07/24 History spray aerosol cyanocobalamin (vitamin B-12) 5,000 mcg sublingual DAILY 02/25/24 03/07/24 History 5,000 mcg sublingual tablet (Vitamin B-12) pramipexole 0.25 mg tablet 0.5 mg PO Q8 02/25/24 03/07/24 History vit C 50 mg-E 15 unit-zinc cit 4.5 1 tab PO DAILY 02/25/24 03/07/24 History mg-lutein 2.5 mg-zeaxan chew tablet ([employer] [facility]) vitamin B complex 1 tab PO DAILY 02/25/24 03/07/24 History aspirin 81 mg tablet,delayed 81 mg PO DAILY 42 days #0 tabs 02/29/24 03/07/24 Rx release duloxetine 30 mg capsule,delayed 30 mg PO QAM #30 caps 02/29/24 03/07/24 Rx release oxycodone 5 mg tablet See Rx Instructions .Route 02/29/24 03/07/24 Rx .COMPLEX PRN pain #60 tabs acetaminophen 500 mg tablet 1,000 mg PO Q8 03/07/24 03/07/24 History atorvastatin 10 mg tablet 10 mg PO HS 03/07/24 03/07/24 History calcium carbonate 500 mg PO BID 03/07/24 03/07/24 History enoxaparin 40 mg/0.4 mL 40 mg subcut DAILY 03/07/24 03/07/24 History subcutaneous syringe furosemide 20 mg tablet 20 mg PO DAILY 03/07/24 03/07/24 History magnesium oxide 400 mg PO DAILY 03/07/24 03/07/24 History multivitamin 1 tab PO HS 03/07/24 03/07/24 History nystatin 100,000 unit/gram topical 1 applic topical BID 03/07/24 03/07/24 History cream pantoprazole 40 mg tablet,delayed 40 mg PO DAILYBB 03/07/24 03/07/24 History release polyethylene glycol 3350 17 gram 17 g PO TID constipation 03/07/24 03/07/24 History oral powder packet (Miralax) sodium chloride 1 gram tablet 1,000 mg PO BID 03/07/24 03/07/24 History tizanidine 2 mg tablet 2 mg PO Q8 03/07/24 03/07/24 History urea 15 gram oral powder packet 1 packet PO BID #8 ea 03/12/24 Rx Patient History Medical History Seasonal allergies Chronic rhinitis Hiatal hernia h/o of repair in past, and has at present too Neuropathy feet Refusal of blood product d/t methodist beliefs Elevated hemidiaphragm right Dysphagia worse with meat, happens on occasion Interstitial lung disease Follows with Dr. Eid/XANDER Hx of migraines History of COVID-19 08/2020, loss taste/smell, body aches, sinus issues > resolved (after sinus surgery) none since History of carotid artery disease mild bilateral intracranial ICA stenoses-head MRA 02/2022 Diverticulitis Hx, 2018 Surgical History Hx of cataract extraction Hx of right cataract extraction will see Dr Huff 08/28/23 for F/U H/O hemorrhoidectomy History of tubal ligation Nausea and vomiting after administration of anesthetic agent Years ago, denies needing scop patch History of esophagogastroduodenoscopy (EGD) Hx of colonoscopy Hx of squamous cell carcinoma excision Excision (head) History of back surgery lumbar Family History Other No significant family history Social History Smoking Status: Never smoker Second Hand Exposure: Yes (in past); Do You Dip or Chew Tobacco: No; Hx Alcohol Use: No Hx Substance Use: No Preferred Language: Greenlandic Communication Ability: Effective Box Office Clerk Required: No Beliefs That Will Affect Care: None Current Living Situation: Alone Current Living Situation Comment: From [facility] Feels Safe at Home: Yes Assistive Devices: Walker Review of Systems 2 Review of Systems: All systems reviewed & are unremarkable except as noted in HPI & below Physical Exam 2 Constitutional: well developed, + obese (Centripetal obesity), + frail appearing and cooperative; no acute distress Eyes: EOM intact bilaterally ENMT: Ears: no external ear abnormality Nose: no external nose abnormality Mouth: + dry oral mucous membranes Neck: no nuchal rigidity Respiratory: normal respiratory effort Auscultation: + diminished lung sounds and + crackles (Left base) Cardiovascular: RRR, no murmur, no edema Gastrointestinal (Abdomen): Inspection/Auscultation: normal bowel sounds P ercussion/Palpation: abdomen soft; abdomen nontender Musculoskeletal: Extremities: strength 5/5 throughout (Bilateral knees in braces) Skin: no rashes, warm and dry Neurologic: hughes, fluent speech, no tremor Psychiatric: Orientation: alert and oriented x 3 Speech: normal rate/rhythm/volume of speech Affect: euthymic affect Results & Data Vital Signs (Past 12 Hours) Vital Signs Temp Pulse Resp BP Pulse Ox O2 Del Method 03/12/24 07:45 37.4 C 70 16 163/81 H 96 Room Air Laboratory Results 03/09/24 06:11 03/12/24 06:49 Urine osm's 338, urine sodium 93, urine chloride 90 Serum osmolality 276 Diagnostic Findings reviwed
[2024-03-12 14:04] LABS: Urine Potassium 23.6 mmol/L
[2024-03-12] MEDS ORDERED: TRIAMCINOLONE ACET 0.025% CR 15 GM TUBE EXT PRN (16:34)
--- NOTE | 2024-03-12 16:55 | Communication Note ---
Date of Service: March 12, 2024 Saw patient at bedside this evening. Spoke with patient about starting hydroxyzine tonight. She is agreeable to doing so, will need to reassess in the AM to see if this helped w/ her visual hallucinations. Prescribed her a lidocaine patch for lower back pain. Also prescribed her topical diclofenac to apply to her lower back and knees as needed. She mentioned a little rash on her R upper thigh from the knee immobilizer causing some rubbing/irritation. Prescribed her low-dose triamcinolone cream to apply to area of irritation as needed.
[2024-03-12] MEDS: LIDOCAINE 5% 1 PATCH TD ONE (17:30)
[2024-03-12] MEDS: hydrOXYzine HCl 10 MG TAB PO SCH (20:40)
[2024-03-12] MEDS ORDERED: OLANZAPINE 2.5 MG TAB PO SCH (21:00)
[2024-03-12] MEDS: LORazepam 1 MG TAB PO PRN (22:04)
[2024-03-13] MEDS: hydrOXYzine HCl 10 MG TAB PO STA (01:57)
[2024-03-13 06:46] LABS: BUN Creatinine Ratio 85.2 (10-20); Calcium 9.4 mg/dl (8.6-10.3); Creatinine Clr Calc Pharmacy 86.1 ml/min; Est GFR (Non-African American) 90.6 ml/min; Potassium 4.4 mmol/L (3.5-5.1)
[2024-03-13] MEDS: DICLOFENAC SOD 1% GEL 100 GM TUBE EXT PRN (07:47)
--- NOTE | 2024-03-13 09:54 | Nephrology Progress Note ---
Date of Service March 13, 2024 Assessment & Plan (1) Chronic hyponatremia: Plan: moderate chronic hyponatremia, - sodium somewhat stuck at at 126 ,but her BUN has risen after increase in UREA. - Relax FR TO 1.5 Lit, incresae Furosemide to 20 mg BID and continue on Urea 15 g BID - Goal sNa for labs tomorrow am no more than 134 -avoid systemic nsaids; topicals ok -maintain eukalemia y Admission and Anticipated Discharge Date Admission Date: March 07, 2024 Subjective She continues to be comfortable and agreeable Review of Systems 2 Review of Systems: Comfortable Physical Exam 2 Physical Exam: GENERAL APPEARANCE: AxOx2-3, HEENT: NC, AT. MMM. EOMI, clear conjunctiva, oropharynx clear. NECK: Supple without lymphadenopathy. No stiffness or restricted ROM. HEART: Normal rate and regular rhythm, normal S1/S1, no m/r/g LUNGS: CTAB, moving air well. No crackles or wheezes are heard. ABDOMEN: Soft, nontender, nondistended with good bowel sounds heard EXTREMITIES: Without cyanosis, clubbing..bilateral 2+ pitting edema NEUROLOGICAL: Grossly nonfocal. Alert and oriented, Results & Data Vital Signs (Past 12 Hours) Vital Signs Temp Pulse Resp BP Pulse Ox O2 Del Method 03/13/24 07:20 36.7 C 65 16 139/80 95 Room Air Laboratory Results 03/09/24 06:11 03/13/24 06:02
[2024-03-13] MEDS: FUROSEMIDE 20 MG TAB PO ONE (14:05)
--- NOTE | 2024-03-13 14:41 | Hospitalist Progress Note ---
Date of Service March 13, 2024 Assessment & Plan (1) AMS (altered mental status): Plan This is a 73-year-old female who has a significant PMHx of polymyositis, HTN, HLD, hypothyroidism, ILD, RLS, major depressive disorder, PTSD, anxiety and history of GERD who presented to ED secondary to visual hallucinations. Patient recently hospitalized 02/24 to 02/28 secondary to fall with right tibial fracture and avulsion fracture of the left condyle of left tibia. She underwent left knee washout with a total of 15 sutures. She is non-weightbearing to her bilateral lower extremities for approximately 2 to 3 months. She was also found to have acute on chronic hyponatremia. She was discharged to rehab in stable condition. While at [facility], patient and family upset with care. It is felt this triggered her PTSD. She had also been experiencing vivid visual hallucinations. She was referred to ED for further work-up. Right ankle cellulitis --> RESOLVED Likely metabolic encephalopathy Visual hallucinations Patient coming in with altered mentation Was noted to have right ankle cellulitis on admission IV ceftriaxone therapy completed, cellulitis resolved Blood culture NGTD Venous doppler negative Pt had prior episodes in past associated with delirium in setting of hyponatremia Follows w/ [facility] She also has been evaluated by Neuropsych for cognitive testing and she did well, did not meet criteria for cognitive impairment MRI Brain w/o acute pathology, TSH normal Sx may also be exacerbated by poor sleep hygiene, PTSD and pain Pt had some visual hallucinations last night - suspect 2/2 drop in sodium overnight Psych consulted: recs as below Right tibial fracture Avulsion fracture of left condyle of left tibia Ambulatory restrictions Bilateral knee braces XR obtain and independently reviewed, alignment appropriate She was seen by Dr. Tanner Sutures to L knee were removed She will remain non-weightbearing for 3 months Follow up with Orthopedics in 4 weeks from 03/08 Pt will require hospital bed Will need bedside commode at home Will also need an at-home Charbel lift Need to get home health involved for d/c planning Hospital Bed: The patient has a medical condition which requires positioning of the body in ways not feasible with ordinary bed. Requires frequent changes in body position. Charbel Lift: Patient requires lift to transfer from bed to wheelchair or will be confined to bed. Bedside Commode: Patient is confined to room with no toilet. W/C: Home assessment that verifies patients home can accommodate a manual wheelchair with adequate access between rooms, maneuvering space and surfaces. 1. Patients mobility limitation impairs ability to participate in one or more activities such as toileting, feeding, dressing, grooming and bathing; and 2. Mobility limitation cannot be resolved by use of care or walker; and 3. Patient is able to safely use a manual wheelchair; 4. Patients functional mobility deficit can be resolved by use of a manual wheelchair and patient can maneuver the chair independently; or there is a caregiver to assist the patient with maneuvering; and 5. Patient has the strength to maneuver the wheelchair; and 6. Patient has a caregiver that can propel the chair. 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 previously Stopped due to hypertension Serum sodium on 126 will add another dose of lasix 20mg in the afternoon, Discussed with Nephrology CAD: Chronic, stable Mild bilateral intracranial ICA stenosis Continue ASA and rosuvastatin Hypertension: Continue atenolol and Lasix --> Atenolol increased to BID dosing Resumed losartan 50mg BID 2/2 elevation in BP on Friday (03/08), will continue for now SBP currently holding steady in the ~150s-160s Losartan had to be stopped during last admission d/t low BP Continue to monitor BP; will continue to adjust meds as needed Dyslipidemia: Chronic, stable Takes rosuvastatin; continue Depression PTSD Anxiety Chronic Wellbutrin, BuSpar and Cymbalta --> Continue Follows w/ [facility] Pt with increased depressive/anxiety sx as well as paranoia on admission Psych consulted --> Recommended increasing Cymbalta to 60mg on 03/09 and 03/10, then further increase in dosing to 90mg daily starting on 03/11 Pt agreeable to Cymbalta dosing increase - feels it's working Scheduled Ativan per psych --> 0.5mg dose in AM and afternoon, then 1mg dose HS Pt feels that Ativan is working well for her anxiety Will start hydroxyzine 10mg HS Will make pt aware of this new med Psych to follow ILD: Chronic, stable Follows with pulmonary; Dr. Stanton TERRELL Takes azathioprine; continue Goals of Care: Latter-day: Prefers to avoid blood transfusions Open to taking B12, folate and iron Takes vitamin B12 and folic acid; continue GERD: Chronic, stable Takes omeprazole; continue DVT Prophylaxis: Lovenox SQ FULL CODE PCP: Dr. Mark Dispo: Given strict non-weightbearing status, she will need home health involvement in preparation for discharge to home. . Please note the above document was generated using voice recognition software. It may contain grammatical, syntax or spelling errors. Any formal questions or concerns about the content, text or information contained within the body of thi s dictation should be directly addressed to the provider for clarification Admission and Anticipated Discharge Date Admission Date: March 07, 2024 Subjective Patient seen and examined at bedside. She is comfortable lying on the bed; not in distress She reports that she was able to get some sleep overnight. No significant events overnight Review of Systems Review of Systems: All systems reviewed & are unremarkable except as noted in Subjective Physical Exam Physical Exam: General: WD/WN, vitals as above, NAD. A+Ox3, Conversing appropriately. HEENT: Normocephalic, atraumatic. Normal inspection, PERRL, conjunctivae normal, anicteric sclerae. External ear and nose normal, oropharynx normal. Respiratory: Normal respiratory effort, lungs clear to auscultation, no wheeze, rales, rhonchi. No accessory muscle use. Cardiovascular: Regular rate, rhythm, no murmur, normal peripheral pulses, no BLE edema. Vessels: No JVD. Abdomen/GI: Normal bowel sounds, soft, nontender, no hepatosplenomegaly. Extremities/Musculoskeletal: B/l knee immobilizers were removed this morning Neurologic: PERRL, EOMI, accommodation nl, no face palsy, no dysarthria. Skin: No rashes, normal color, warm/dry. Results & Data Results & Data Vital Signs (Past 12 Hours) Vital Signs Temp Pulse Resp BP Pulse Ox O2 Del Method 03/13/24 14:07 36.9 C 66 17 139/75 99 Room Air 03/13/24 07:20 36.7 C 65 16 139/80 95 Room Air (1) AMS (altered mental status) Altered mental status type: unspecified Qualified Code(s): R41.82 - Altered mental status, unspecified
[2024-03-13] MEDS: POLYETHYLENE (MIRALAX) 17 GM PACK PO PRN (21:54)
[2024-03-14 06:29] LABS: BUN Creatinine Ratio 98.3 (10-20); Calcium 9.4 mg/dl (8.6-10.3); Est GFR (African American) 106.1 ml/min; Est GFR (Non-African American) 91.6 ml/min; Potassium 4.4 mmol/L (3.5-5.1)
[2024-03-14] MEDS: FUROSEMIDE 20 MG TAB PO SCH (13:02)
--- NOTE | 2024-03-14 14:48 | Hospitalist Progress Note ---
Date of Service March 14, 2024 Assessment & Plan (1) AMS (altered mental status): Plan This is a 73-year-old female who has a significant PMHx of polymyositis, HTN, HLD, hypothyroidism, ILD, RLS, major depressive disorder, PTSD, anxiety and history of GERD who presented to ED secondary to visual hallucinations. Patient recently hospitalized 02/24 to 02/28 secondary to fall with right tibial fracture and avulsion fracture of the left condyle of left tibia. She underwent left knee washout with a total of 15 sutures. She is non-weightbearing to her bilateral lower extremities for approximately 2 to 3 months. She was also found to have acute on chronic hyponatremia. She was discharged to rehab in stable condition. While at [facility], patient and family upset with care. It is felt this triggered her PTSD. She had also been experiencing vivid visual hallucinations. She was referred to ED for further work-up. Right ankle cellulitis --> RESOLVED Likely metabolic encephalopathy Visual hallucinations Patient coming in with altered mentation Was noted to have right ankle cellulitis on admission IV ceftriaxone therapy completed, cellulitis resolved Blood culture NGTD Venous doppler negative Pt had prior episodes in past associated with delirium in setting of hyponatremia Follows w/ [facility] She also has been evaluated by Neuropsych for cognitive testing and she did well, did not meet criteria for cognitive impairment MRI Brain w/o acute pathology, TSH normal Right tibial fracture Avulsion fracture of left condyle of left tibia Ambulatory restrictions Bilateral knee braces She was seen by Dr. Tanner Sutures to L knee were removed She will remain non-weightbearing for 3 months Follow up with Orthopedics in 4 weeks from 03/08 Pt will require hospital bed Will need bedside commode at home Will also need an at-home Charbel lift Need to get home health involved for d/c planning Hospital Bed: The patient has a medical condition which requires positioning of the body in ways not feasible with ordinary bed. Requires frequent changes in body position. Charbel Lift: Patient requires lift to transfer from bed to wheelchair or will be confined to bed. Bedside Commode: Patient is confined to room with no toilet. W/C: Home assessment that verifies patients home can accommodate a manual wheelchair with adequate access between rooms, maneuvering space and surfaces. 1. Patients mobility limitation impairs ability to participate in one or more activities such as toileting, feeding, dressing, grooming and bathing; and 2. Mobility limitation cannot be resolved by use of care or walker; and 3. Patient is able to safely use a manual wheelchair; 4. Patients functional mobility deficit can be resolved by use of a manual wheelchair and patient can maneuver the chair independently; or there is a caregiver to assist the patient with maneuvering; and 5. Patient has the strength to maneuver the wheelchair; and 6. Patient has a caregiver that can propel the chair. 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 previously Stopped due to hypertension Continue oral urea along with Lasix twice daily Sodium slightly improved Continue to monitor CAD: Chronic, stable Mild bilateral intracranial ICA stenosis Continue ASA and rosuvastatin Hypertension: Continue atenolol and Lasix --> Atenolol increased to BID dosing Resumed losartan 50mg BID 10/24 elevation in BP on Friday (03/08), will continue for now Continue to monitor BP; will continue to adjust meds as needed Dyslipidemia: Chronic, stable Takes rosuvastatin; continue Depression PTSD Anxiety Chronic Wellbutrin, BuSpar and Cymbalta --> Continue Follows w/ [facility] Pt with increased depressive/anxiety sx as well as paranoia on admission Psych consulted --> Recommended increasing Cymbalta to 60mg on 03/09 and 03/10, then further increase in dosing to 90mg daily starting on 03/11 Pt agreeable to Cymbalta dosing increase - feels it's working Scheduled Ativan per psych --> 0.5mg dose in AM and afternoon, then 1mg dose HS Pt feels that Ativan is working well for her anxiety ambien hs for insommia ILD: Chronic, stable Follows with pulmonary; Dr. Stanton TERRELL Takes azathioprine; continue Goals of Care: Taoist: Prefers to avoid blood transfusions Open to taking B12, folate and iron Takes vitamin B12 and folic acid; continue GERD: Chronic, stable Takes omeprazole; continue DVT Prophylaxis: Lovenox SQ FULL CODE PCP: Dr. Mark Dispo: Given strict non-weightbearing status, she will need home health involvement in preparation for discharge to home. . Please note the above document was generated using voice recognition software. It may contain grammatical, syntax or spelling errors. Any formal questions or concerns about the content, text or information contained within the body of this dictation should be directly addressed to the provider for clarification Admission and Anticipated Discharge Date Admission Date: March 07, 2024 Subjective Patient seen and examined at bedside. She is comfortably lying on the bed; not in distress Review of Systems Review of Systems: All systems reviewed & are unremarkable except as noted in Subjective Physical Exam Physical Exam: General: WD/WN, vitals as above, NAD. A+Ox3, Conversing appropriately. HEENT: Normocephalic, atraumatic. Normal inspection, PERRL, conjunctivae normal, anicteric sclerae. External ear and nose normal, oropharynx normal. Respiratory: Normal respiratory effort, lungs clear to auscultation, no wheeze, rales, rhonchi. No accessory muscle use. Cardiovascular: Regular rate, rhythm, no murmur, normal peripheral pulses, no BLE edema. Vessels: No JVD. Abdomen/GI: Normal bowel sounds, soft, nontender, no hepatosplenomegaly. Extremities/Musculoskeletal: B/l knee immobilizers were removed this morning Neurologic: PERRL, EOMI, accommodation nl, no face palsy, no dysarthria. Skin: No rashes, normal color, warm/dry. Results & Data Results & Data Vital Signs (Past 12 Hours) Vital Signs Temp Pulse Resp BP Pulse Ox O2 Del Method 03/14/24 07:31 36.9 C 69 16 117/75 95 Room Air (1) AMS (altered mental status) Altered mental status type: unspecified Qualified Code(s): R41.82 - Altered mental status, unspecified
--- NOTE | 2024-03-14 15:00 | Nephrology Progress Note ---
Date of Service March 14, 2024 Assessment & Plan (1) Chronic hyponatremia: Plan: moderate chronic hyponatremia, - Improved to 128 ,but her BUN has risen after increase in UREA. - Continue FR of 1.5 Lit, incresae Furosemide to 20 mg BID and continue on Urea 15 g BID -avoid systemic nsaids; topicals ok -maintain eukalemia y Admission and Anticipated Discharge Date Admission Date: March 07, 2024 Subjective Patient seen and examined at bedside. She is comfortably lying on the bed; not in distress Review of Systems 2 Review of Systems: Comfortable Physical Exam 2 Physical Exam: GENERAL APPEARANCE: AxOx2-3, HEENT: NC, AT. MMM. EOMI, clear conjunctiva, oropharynx clear. NECK: Supple without lymphadenopathy. No stiffness or restricted ROM. HEART: Normal rate and regular rhythm, normal S1/S1, no m/r/g LUNGS: CTAB, moving air well. No crackles or wheezes are heard. ABDOMEN: Soft, nontender, nondistended with good bowel sounds heard EXTREMITIES: Without cyanosis, clubbing..bilateral 2+ pitting edema NEUROLOGICAL: Grossly nonfocal. Alert and oriented, Results & Data Vital Signs (Past 12 Hours) Vital Signs Temp Pulse Resp BP Pulse Ox O2 Del Method 03/14/24 14:48 36.6 C 75 16 121/71 96 Room Air 03/14/24 07:31 36.9 C 69 16 117/75 95 Room Air Laboratory Results 03/09/24 06:11 03/14/24 05:57
[2024-03-14] MEDS: ZOLPIDEM TARTRATE 5 MG TAB PO SCH (22:10)
[2024-03-15 06:37] LABS: BUN Creatinine Ratio 103.4 (10-20); Calcium 9.5 mg/dl (8.6-10.3); Creatinine Clr Calc Pharmacy 90.5 ml/min; Est GFR (African American) 106.7 ml/min; Est GFR (Non-African American) 92.1 ml/min; Potassium 4.3 mmol/L (3.5-5.1)
--- NOTE | 2024-03-15 10:33 | Hospitalist Progress Note ---
Date of Service March 15, 2024 Assessment & Plan (1) AMS (altered mental status): Plan 73-year-old female who has a significant PMHx of polymyositis, HTN, HLD, hypothyroidism, ILD, RLS, major depressive disorder, PTSD, anxiety and history of GERD who presented to ED secondary to visual hallucinations. Hospitalized 02/24 to 02/28 secondary to fall with right tibial fracture and avulsion fracture of the left condyle of left tibia. She underwent left knee washout with a total of 15 sutures. She is non-weightbearing to her bilateral lower extremities for approximately 2 to 3 months. She was also found to have acute on chronic hyponatremia. She was discharged to rehab in stable condition. While at [facility], patient and family upset with care. It is felt this triggered her PTSD. She had also been experiencing vivid visual hallucinations--> proceeding to ED. Right tibial fracture Avulsion fracture of left condyle of left tibia Ambulatory restrictions Acute Bilateral knee braces She was seen by Dr. Tanner Sutures to L knee were removed She will remain non-weightbearing for 3 months Follow up with Orthopedics in 4 weeks from 03/08 Pt will require hospital bed, BSC, and charbel lift. To be delivered by [facility] (hopefully today; was to be delivered over the weekend) Acute on Chronic Hyponatremia: Acute Likely secondary to SIADH Was taking Na+ tabs at home; caused HTN in the setting of taking salt tabs Salt tabs have been discontinued Serum Na+ improving; 128--> 131 today; trend in AM Nephro following; continue oral urea + Lasix 20 mg twice daily [employer] Operator consult placed to discuss protein shakes with family Per Nephro, fluid restriction now 1500mL; protein shakes do not count towards fluid restriction Continue to monitor and check BMP in AM Rationales for orders for home health equipment: Hospital Bed: The patient has a medical condition which requires positioning of the body in ways not feasible with ordinary bed. Requires frequent changes in body position. Charbel Lift: Patient requires lift to transfer from bed to wheelchair or will be confined to bed. Bedside Commode: Patient is confined to room with no toilet. W/C: Home assessment that verifies patients home can accommodate a manual wheelchair with adequate access between rooms, maneuvering space and surfaces. 1. Patients mobility limitation impairs ability to participate in one or more activities such as toileting, feeding, dressing, grooming and bathing; and 2. Mobility limitation cannot be resolved by use of care or walker; and 3. Patient is able to safely use a manual wheelchair; 4. Patients functional mobility deficit can be resolved by use of a manual wheelchair and patient can maneuver the chair independently; or there is a caregiver to assist the patient with maneuvering; and 5. Patient has the strength to maneuver the wheelchair; and 6. Patient has a caregiver that can propel the chair. Right ankle cellulitis --> RESOLVED Likely metabolic encephalopathy Visual hallucinations Presents with AMS; resolved Was noted to have right ankle cellulitis on admission IV ceftriaxone therapy completed, cellulitis resolved Blood culture NGTD Venous doppler negative Pt had prior episodes in past associated with delirium in setting of hyponatremia Follows w/ [facility] She also has been evaluated by Neuropsych for cognitive testing and she did well, did not meet criteria for cognitive impairment MRI Brain w/o acute pathology, TSH normal CAD: Chronic, stable Mild bilateral intracranial ICA stenosis Continue ASA and rosuvastatin Hypertension: Continue atenolol and Lasix --> Atenolol increased to BID dosing Resumed losartan 50mg BID 2/2 elevation in BP on Friday (03/08), will continue for now Continue to monitor BP; will continue to adjust meds as needed normotensive today 119/73 Dyslipidemia: Chronic, stable Takes rosuvastatin; continue Depression PTSD Anxiety Chronic Wellbutrin, BuSpar and Cymbalta --> Continue Follows [facility] Pt with increased depressive/anxiety sx as well as paranoia on admission Psych consulted --> Recommended increasing Cymbalta to 60mg on 03/09 and 03/10, then further increase in dosing to 90mg daily starting on 03/11 Scheduled Ativan per psych --> 0.5mg dose in AM and afternoon, then 1mg dose HS Pt feels that Ativan is working well for her anxiety ambien hs for insomnia; this did help her overnight. 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 Stanton TERRELL Takes azathioprine; continue Lungs with some crackles lower bases bilaterally; in no apparent distress and is taking diuretics. Goals of Care: Protestant: Prefers to avoid blood transfusions Open to taking B12, folate and iron Takes vitamin B12 and folic acid; continue GERD: Chronic, stable Takes omeprazole; continue Dispo: DVT Prophylaxis: Lovenox SQ Code Status: FULL CODE PCP: Dr. Mark Please note the above document was generated using voice recognition software. It may contain grammatical, syntax or spelling errors. Any formal questions or concerns about the content, text or information contained within the body of this dictation should be directly addressed to the provider for clarification I spent a total of 78 minutes coordinating, documenting, and providing care for this patient excluding time spent in the performance of separately billed services. All of the aforementioned completed while collaborating with the assigned attending physician for a full treatment plan. Please see their addendum for further details. Admission and Anticipated Discharge Date Admission Date: March 07, 2024 Supervising Physician Co-Signing Physician Notes Patient seen and examined at bedside. Discussed with above provider Patient's serum sodium improved with increasing Lasix and continuation of oral urea She reported improvement in sleep with trial of Ambien at night No significant overnight events Vital signs stable Case management on board for arrangement of hospital bed, home health services. I have reviewed the advanced practitioner's documentation, and I agree with, and take responsibility for the plan of care I spent a total of 20 minutes coordinating, documenting, and providing care for this patient excluding time spent in the performance of separately billed services. All of the aforementioned completed while collaborating with the assigned advanced practitioner for a full treatment plan Subjective Patient sitting in her hospital bed in no apparent distress Daughter, Kalee, at bedside. Equipment was to be delivered over the weekend; did not get delivered; CM aware Pt denies fever, chills, SOB, dizziness, chest pain, palpitations Overall is feeling better; some discomfort in her left ankle Demonstrated appropriate use of incentive spirometry and flutter valve lots of questions answered regarding protein shakes, hyponatremia Review of Systems Review of Systems: Neuro: (-) Falls, trauma, slurred speech. (+) 2/10 pain in LL foot HEENT: (-) [place], dizziness, dysphagia, visual or auditory changes CV: (-) CP, palpitations, swelling Resp: (-) SOB GI: (-) appetite changes, N/V/D, bowel changes : (-) urinary changes Skin: (-) rashes Psych: (-) anxiety, depression Physical Exam Physical Exam: Neuro: AAOx4, PERRLA, no aphagia, memory changes, CNII-XII grossly intact HEENT: head normocephalic, moist mucus membranes CV: S1/S2, (-) M/G/R, (-) edema, cap refill < 3 seconds Resp: Lungs CTA in all cole. On RA GI: Abdomen S/NT/ND, Ax4 bowel sounds, (-) CVA tenderness Musculoskeletal: 5/5 B/L UE strength, 5/5 B/L LE strength. Left boot in place Skin: (-) rashes , (-) erythema. Psych: euthymic mood Results & Data Results & Data Vital Signs (Past 12 Hours) Vital Signs Temp Pulse Resp BP Pulse Ox O2 Del Method 03/15/24 07:45 37.0 C 68 16 119/73 95 Room Air Laboratory Results [facility] 03/15/24 05:53 Sodium 131 L Potassium 4.3 Chloride 95 L Carbon Dioxide 31 BUN 60 H Creatinine 0.58 L Glucose 110 H Calcium 9.5 (1) AMS (altered mental status) Altered mental status type: unspecified Qualified Code(s): R41.82 - Altered mental status, unspecified
--- NOTE | 2024-03-15 10:47 | Nephrology Progress Note ---
Date of Service March 15, 2024 Assessment & Plan (1) Chronic hyponatremia: Plan: moderate chronic hyponatremia, - Improved further to 131; BUN has not unexpectedly risen after increase in UREA. - Continue FR of 1.5 Lit, cont Furosemide 20 mg BID and continue on Urea 15 g BID -avoid systemic nsaids; topicals ok -maintain eukalemia will sign off pls call if ? NEPHRO D/C RECS -d/c on FR, lasix, urea doses above and on K 20 mEq daily -encourage protein intake; protein shakes do not count toward FR -pt and family may need case mgt guidance on getting urea as OP >> takes some planning, $$ -daily bmp while in house -hospital D/c appt w/ nephro >> Dr Davis or Penny >> 2-4 wks after d/c w/ bmp, serum and urine osms, urine electrolytes to be ordered by neph nurse and done no more than 72 hrs before appt -recommend BMP check at pcp f/u visit as well Admission and Anticipated Discharge Date Admission Date: March 07, 2024 Subjective no sob, no n/v; has daugther on phone at eval late this am to discuss urea tablets rather than powder (advised powder); pain controlled; some neuropathy sx in feet Review of Systems 2 Review of Systems: All systems reviewed & are unremarkable except as noted in Subjective Physical Exam 2 Constitutional: well developed, + obese (Centripetal obesity), + frail appearing and cooperative; no acute distress Eyes: EOM intact bilaterally ENMT: Ears: no external ear abnormality Nose: no external nose abnormality Mouth: + dry oral mucous membranes Neck: no nuchal rigidity Respiratory: normal respiratory effort Auscultation: + diminished lung sounds and + crackles (BL bases) Cardiovascular: RRR, no murmur, no edema Gastrointestinal (Abdomen): Inspection/Auscultation: normal bowel sounds P ercussion/Palpation: abdomen soft; abdomen nontender Musculoskeletal: Extremities: strength 5/5 throughout (Bilateral knees in braces) Skin: no rashes, warm and dry Psychiatric: Orientation: alert and oriented x 3 Speech: normal rate/rhythm/volume of speech Affect: euthymic affect Results & Data Vital Signs (Past 12 Hours) Vital Signs Temp Pulse Resp BP Pulse Ox O2 Del Method 03/15/24 07:45 37.0 C 68 16 119/73 95 Room Air Laboratory Results 03/09/24 06:11 03/15/24 05:53
[2024-03-16 06:24] LABS: BUN Creatinine Ratio 111.7 (10-20); Calcium 9.5 mg/dl (8.6-10.3); Creatinine Clr Calc Pharmacy 87.5 ml/min; Est GFR (African American) 105.5 ml/min; Est GFR (Non-African American) 91.1 ml/min; Potassium 4.1 mmol/L (3.5-5.1)
--- NOTE | 2024-03-16 07:44 | Hospitalist Progress Note ---
Date of Service March 16, 2024 Assessment & Plan (1) Avulsion fracture of lateral condyle of left tibia: (2) Chronic hyponatremia: (3) HTN (hypertension): (4) Hypothyroidism: (5) Depression: (6) GERD (gastroesophageal reflux disease): Plan 73-year-old female who has a significant PMHx of polymyositis, HTN, HLD, hypothyroidism, ILD, RLS, major depressive disorder, PTSD, anxiety and history of GERD who presented to ED secondary to visual hallucinations. Hospitalized 02/24 to 02/28 secondary to fall with right tibial fracture and avulsion fracture of the left condyle of left tibia. She underwent left knee washout with a total of 15 sutures. She is non-weightbearing to her bilateral lower extremities for approximately 2 to 3 months. She was also found to have acute on chronic hyponatremia. She was discharged to rehab in stable condition. While at [facility], patient and family upset with care. It is felt this triggered her PTSD. She had also been experiencing vivid visual hallucinations--> proceeding to ED. Right tibial fracture Avulsion fracture of left condyle of left tibia Ambulatory restrictions Acute Bilateral knee braces She was seen by Dr. Tanner Sutures to L knee were removed She will remain non-weightbearing for 3 months Follow up with Orthopedics in 4 weeks from 03/08 Pt will require hospital bed, BSC, and charbel lift which will be delivered tomorrow 03/17 by [facility] Home Health Planned for DC 03/17. Acute on Chronic Hyponatremia: Acute Likely secondary to SIADH Was taking Na+ tabs at home; caused HTN in the setting of taking salt tabs Salt tabs have been discontinued Serum Na+ improving; 128--> 131--> 133 today; trend in AM prior to DC Nephro following; continue oral urea + Lasix 20 mg twice daily Freight Checker consult placed to discuss protein shakes with family Per Nephro, fluid restriction now 1500mL; protein shakes do not count towards fluid restriction Continue to monitor and check BMP in AM Rationales for orders for home health equipment: Hospital Bed: The patient has a medical condition which requires positioning of the body in ways not feasible with ordinary bed. Requires frequent changes in body position. Charbel Lift: Patient requires lift to transfer from bed to wheelchair or will be confined to bed. Bedside Commode: Patient is confined to room with no toilet. W/C: Home assessment that verifies patients home can accommodate a manual wheelchair with adequate access between rooms, maneuvering space and surfaces. 1. Patients mobility limitation impairs ability to participate in one or more activities such as toileting, feeding, dressing, grooming and bathing; and 2. Mobility limitation cannot be resolved by use of care or walker; and 3. Patient is able to safely use a manual wheelchair; 4. Patients functional mobility deficit can be resolved by use of a manual wheelchair and patient can maneuver the chair independently; or there is a caregiver to assist the patient with maneuvering; and 5. Patient has the strength to maneuver the wheelchair; and 6. Patient has a caregiver that can propel the chair. Right ankle cellulitis --> RESOLVED Likely metabolic encephalopathy Visual hallucinations Presents with AMS; resolved Was noted to have right ankle cellulitis on admission IV ceftriaxone therapy completed, cellulitis resolved Blood culture NGTD Venous doppler negative Pt had prior episodes in past associated with delirium in setting of hyponatremia Follows w/ [facility] She also has been evaluated by Neuropsych for cognitive testing and she did well, did not meet criteria for cognitive impairment MRI Brain w/o acute pathology, TSH normal CAD: Chronic, stable Mild bilateral intracranial ICA stenosis Continue ASA and rosuvastatin Hypertension: Continue atenolol and Lasix Continue Losartan Continue to monitor BP; will continue to adjust meds as needed normotensive today 119/73 Dyslipidemia: Chronic, stable Takes rosuvastatin; continue Depression PTSD Anxiety Chronic Wellbutrin, BuSpar and Cymbalta --> Continue Follows w/ [facility]iat[facility] Pt with increased depressive/anxiety sx as well as paranoia on admission Psych consulted --> Recommended increasing Cymbalta to 60mg on 03/09 and 03/10, then further increase in dosing to 90mg daily starting on 03/11 Scheduled Ativan per psych --> 0.5mg dose in AM and afternoon, then 1mg dose HS Pt feels that Ativan is working well for her anxiety ambien hs for insomnia; this did help her overnight. Due to BEERS Criteria; would not suggest this be a prison medication; would recommend Remeron trial that can be adjusted as outpatient as she is on antidepressants ILD: Chronic, stable Follows with pulmonary; Dr. Stanton TERRELL Takes azathioprine; continue Goals of Care: Christianity: Prefers to avoid blood transfusions Open to taking B12, folate and iron Takes vitamin B12 and folic acid; continue GERD: Chronic, stable Takes omeprazole; continue Dispo: DVT Prophylaxis: Lovenox SQ Code Status: FULL CODE PCP: Dr. Mark Please note the above document was generated using voice recognition software. It may contain grammatical, syntax or spelling errors. Any formal questions or concerns about the content, text or information contained within the body of this dictation should be directly addressed to the provider for clarification I spent a total of 62 minutes coordinating, documenting, and providing care for this patient excluding time spent in the performance of separately billed services. All of the aforementioned completed while collaborating with the assigned attending physician for a full treatment plan. Please see their a ddendum for further details. Admission and Anticipated Discharge Date Admission Date: March 07, 2024 Supervising Physician Co-Signing Physician Notes Patient seen and examined at bedside. Discussed with above provider Patient's serum sodium continues to increase with Lasix, oral urea and fluid restriction No significant overnight events Vital signs stable Case management on board for arrangement of hospital bed, home health services. Patient is stable for discharge I have reviewed the advanced practitioner's documentation, and I agree with, and take responsibility for the plan of care I spent a total of 20 minutes coordinating, documenting, and providing care for this patient excluding time spent in the performance of separately billed services. All of the aforementioned completed while collaborating with the assigned advanced practitioner for a full treatment plan Subjective Patient resting in her hospital bed talking to his daughter on the phone in no apparent distress. She denies fever, chills, DUKE, dizziness. Tolerating diet well serum sodium improved back to baseline. Daughter updated on the phone. Case management on board for arrangement of hospital bed, home health services. Patient is stable for discharge on 03/17 [facility] Home Health Review of Systems Review of Systems: Neuro: (-) Falls, trauma, slurred speech. (+) 1/10 pain in LL foot HEENT: (-) DUKE, dizziness, dysphagia, visual or auditory changes CV: (-) CP, palpitations, swelling Resp: (-) SOB GI: (-) appetite changes, N/V/D, bowel changes : (-) urinary changes Skin: (-) rashes Psych: (-) anxiety, depression Physical Exam Physical Exam: Neuro: AAOx4, PERRLA, no aphagia, memory changes, CNII-XII grossly intact HEENT: head normocephalic, moist mucus membranes CV: S1/S2, (-) M/G/R, (-) edema, cap refill < 3 seconds Resp: Lungs CTA in all cole. On RA GI: Abdomen S/NT/ND, Ax4 bowel sounds, (-) CVA tenderness Musculoskeletal: 5/5 B/L UE strength, 5/5 B/L LE strength. Left boot in place Skin: (-) rashes , (-) erythema. Psych: euthymic mood Results & Data Results & Data Vital Signs (Past 12 Hours) Vital Signs Temp Pulse Resp BP Pulse Ox O2 Del Method 03/15/24 20:00 37.0 C 76 18 138/83 98 Room Air Laboratory Results [facility] 03/16/24 05:43 Sodium 133 L Potassium 4.1 Chloride 97 L Carbon Dioxide 30 BUN 67 H Creatinine 0.60 Glucose 104 H Calcium 9.5 (3) HTN (hypertension) Hypertension type: unspecified secondary hypertension Qualified Code(s): I15.9 - Secondary hypertension, unspecified
[2024-03-17 06:36] LABS: BUN Creatinine Ratio 116.7 (10-20); Calcium 9.9 mg/dl (8.6-10.3); Creatinine Clr Calc Pharmacy 87.5 ml/min; Est GFR (African American) 105.5 ml/min; Est GFR (Non-African American) 91.1 ml/min; Potassium 4.2 mmol/L (3.5-5.1)
--- NOTE | 2024-03-17 10:55 | Discharge Summary ---
Discharge Summary Date of Service March 17, 2024 Principal Dx & Hospital Course #1 = Principal Diagnosis (1) Avulsion fracture of lateral condyle of left tibia: (2) Chronic hyponatremia: (3) HTN (hypertension): (4) Hypothyroidism: (5) Depression: (6) GERD (gastroesophageal reflux disease): Plan 73-year-old female who has a significant PMHx of polymyositis, HTN, HLD, hypothyroidism, ILD, RLS, major depressive disorder, PTSD, anxiety and history of GERD who presented to ED secondary to visual hallucinations. Hospitalized 02/24 to 02/28 secondary to fall with right tibial fracture and avulsion fracture of the left condyle of left tibia. She underwent left knee washout with a total of 15 sutures. She is non-weightbearing to her bilateral lower extremities for approximately 2 to 3 months. She was also found to have acute on chronic hyponatremia. She was discharged to rehab in stable condition. While at [facility], patient and family upset with care. It is felt this triggered her PTSD. She had also been experiencing vivid visual hallucinations--> proceeding to ED. Right tibial fracture Avulsion fracture of left condyle of left tibia Ambulatory restrictions Acute Bilateral knee braces She was seen by Dr. Tanner Sutures to L knee were removed She will remain non-weightbearing for 3 months Follow up with Orthopedics in 4 weeks from 03/08 Pt will require hospital bed, BSC, and teofilo lift which will be delivered tomorrow 03/17 by [facility] Planned for DC 03/17. Continue to SQ Lovenox. Discussed with Dr. Tanner on day of discharge and he feels she no longer requires antibiotics. Acute on Chronic Hyponatremia: Acute Likely secondary to SIADH Was taking Na+ tabs at home; caused HTN in the setting of taking salt tabs Salt tabs have been discontinued Serum Na+ improving; 128--> 131--> 133 today; trend in AM prior to DC Nephro following; continue oral urea + Lasix 20 mg twice daily Patent Agent consult placed to discuss protein shakes with family Per Nephro, fluid restriction now 1500mL; protein shakes do not count towards fluid restriction Continue to monitor and check BMP in AM Right ankle cellulitis --> RESOLVED Likely metabolic encephalopathy Visual hallucinations Presents with AMS; resolved Was noted to have right ankle cellulitis on admission IV ceftriaxone therapy completed, cellulitis resolved Blood culture NGTD Venous doppler negative Pt had prior episodes in past associated with delirium in setting of h yponatremia Follows w/ [facility] Psych She also has been evaluated by Neuropsych for cognitive testing and she did well, did not meet criteria for cognitive impairment MRI Brain w/o acute pathology, TSH normal CAD: Chronic, stable Mild bilateral intracranial ICA stenosis Continue ASA and rosuvastatin Hypertension: Continue atenolol and Lasix (Atenolol increased to twice daily this admission) Continue Losartan (Losartan Resumed this admission) Continue to monitor BP at home, this was discussed with patient, anticipate her blood pressure to continue to improve once in home setting and her BP meds may need to be reduced Discussed with daughter for twice daily monitoring and keeping a log Dyslipidemia: Chronic, stable Takes rosuvastatin; continue Depression PTSD Anxiety Chronic Wellbutrin, BuSpar and Cymbalta --> Continue Follows / [facility] Psychiatry Pt with increased depressive/anxiety sx as well as paranoia on admission Psych consulted --> Recommended increasing Cymbalta to 90mg daily Scheduled Ativan per psych --> 0.5mg dose in AM and afternoon, then 1mg dose HS Pt feels that Ativan is working well for her anxiety She was taking ambien at HS for sleep; however will not discharge her on this given risk of ADR and drug-drug interactions, she will need to discuss with psych or PCP regarding insomnia ILD: Chronic, stable Follows with pulmonary; Dr. Stanton TERRELL Takes azathioprine; continue Goals of Care: Scientologist: Prefers to avoid blood transfusions Open to taking B12, folate and iron Takes vitamin B12 and folic acid; continue GERD: Chronic, stable Takes omeprazole; continue Abnormal imaging findings during hospital stay CXR: cardiomegaly recommend outpt follow up with echo Knee Xrays: reiterating acute avulsion fx of L tibial and R Knee periprosthetic fx, she will need f/u imaging with Dr. Tanner Head CT: Age related involutional changes, partial empty sella, chronic microvascular disease Dispo: Discharge to home today DVT Prophylaxis: Lovenox SQ Code Status: FULL CODE PCP: Dr. Mark Please note the above document was generated using voice recognition software. It may contain grammatical, syntax or spelling errors. Any formal questions or concerns about the content, text or information contained within the body of this dictation should be directly addressed to the provider for clarification I spent a total of 50 minutes coordinating, documenting, and providing care for this patient excluding time spent in the performance of separately billed services. All of the aforementioned completed while collaborating with the assigned attending physician for a full treatment plan. Please see their addendum for further details. I discussed with patients daughter Kalee regarding above and she agrees. Notes For Next Care Provider Repeat BMP at follow up visit Ensure pt has nephro follow and ortho follow up at discharge She will need close psych follow up given prescribed ativan as well as insomnia, PTSD, Anxiety. Medication Changes From Visit MEDICATION CHANGES: * Atenolol increased to 25 mg twice a day due to elevated blood pressure * Furosemide ( Lasix) was increased to twice a day * Cymbalta increased to 90 mg daily * Losartan was resumed 50 mg by mouth twice daily during this admission due to elevated blood pressure NEW MEDICATIONS * lorazepam 1 mg at bedtime * lorazepam 0.5 mg 1 tablet at 8 AM and 1 tablet at 2 PM * urea 15 g packet by mouth twice daily * Lovenox 40 mg subcutaneous injection, inject into subcutaneous area on abdomen daily at 9 AM, this is for blood clot prevention while nonambulatory Admission HPI Per Admitting Provider 73-year-old lady with PMH of avulsion fracture of left condyle left tibia/right tibial fracture on bedrest [orthopedics evaluated last admission, nonweightbearing for 2 to 3 months], CAD, HTN, HLD, depression, ILD, Scientologist [prefers to avoid blood transfusion], GERD who was discharged about 7 days ago to [facility] on 7 days of Keflex, hence atb will be done today. She comes in from [facility] because of dissatisfaction/poor care/also she was noted to be altered in the late afternoon/evening yesterday at [facility]. Patient denies fever, reports decreased appetite, reports constipation/on laxatives as needed, denies chest pain or cough or sore throat. Patient and her many family members were at bedside, patient was noted to be hallucinating including visual and auditory hallucination yesterday as per the note of family members and patient herself. Patient reports being anxious and was asking for Ativan. We discussed about hydroxyzine use as needed for anxiety as Ativan might increase the risks of confusion in elderly lady with multiple comorbidities while in hospital. Medications were reviewed with patient and her family members in detail at bedside. Plan of care were discussed with patient and her family members in detail. All of the family members voiced understanding and were agreeable to plan of care. Admission Exam Per Admitting Provider please refer to H and P Discharge Exam Gen: WD/WN, NAD, A&O x3 HEENT: Normocephalic, atraumatic, conjunctivae moist, sclerae anicteric, mucous membranes moist. Lung: Clear to Auscultation bilaterally, no wheezes/rales/rhonchi Heart: Regular rate, regular rhythm, no murmurs, rubs, or gallops Abdomen: Soft, NT, ND +BS x 4 Extremities: b/l knee immobilizers in place, NVI distally Skin: Warm, no rash, negative turgor. Updated Medication List Medication Instructions Recorded Confirmed Type bupropion HCl 150 mg 24 hr tablet, 150 mg PO QAM 07/11/19 03/07/24 History extended release (Wellbutrin XL) buspirone 10 mg tablet 10 mg PO .EVERY 8 HRS 07/11/19 03/07/24 History cholecalciferol (vitamin D3) 125 5,000 unit PO QAM 07/11/19 03/07/24 History mcg (5,000 unit) tablet (Vitamin D3) cyproheptadine 4 mg tablet 8 mg PO HS 07/11/19 03/07/24 History docusate sodium 100 mg capsule 100 mg PO AMHS 07/11/19 03/07/24 History ferrous sulfate 325 mg (65 mg 325 mg PO Q2D 07/11/19 03/07/24 History iron) tablet folic acid 1 mg tablet 1 mg PO QAM 07/11/19 03/07/24 History omeprazole 20 mg capsule,delayed 20 mg PO AMHS 07/11/19 03/07/24 History release levothyroxine 88 mcg tablet 88 mcg PO DAILYBB 08/19/22 03/07/24 History meclizine 12.5 mg tablet 12.5 mg PO TID PRN Dizziness 01/22/23 03/07/24 History ondansetron HCl 4 mg tablet 4 mg PO Q6 PRN Nausea 01/22/23 03/07/24 History valacyclovir 500 mg tablet 500 mg PO QAM 01/22/23 03/07/24 History azathioprine 50 mg tablet 50 mg PO QAM 11/25/23 03/07/24 History azelastine 137 mcg (0.1 %) nasal 1 spray intranasal .Q 12 HRS 02/25/24 03/07/24 History spray aerosol cyanocobalamin (vitamin B-12) 5,000 mcg sublingual DAILY 02/25/24 03/07/24 History 5,000 mcg sublingual tablet (Vitamin B-12) pramipexole 0.25 mg tablet 0.5 mg PO Q8 02/25/24 03/07/24 History vit C 50 mg-E 15 unit-zinc cit 4.5 1 tab PO DAILY 02/25/24 03/07/24 History mg-lutein 2.5 mg-zeaxan chew tablet ([employer] [facility]) vitamin B complex 1 tab PO DAILY 02/25/24 03/07/24 History aspirin 81 mg tablet,delayed 81 mg PO DAILY 42 days #0 tabs 02/29/24 03/07/24 Rx release acetaminophen 500 mg tablet 1,000 mg PO Q8 03/07/24 03/07/24 History atorvastatin 10 mg tablet 10 mg PO HS 03/07/24 03/07/24 History calcium carbonate 500 mg PO BID 03/07/24 03/07/24 History magnesium oxide 400 mg PO DAILY 03/07/24 03/07/24 History multivitamin 1 tab PO HS 03/07/24 03/07/24 History nystatin 100,000 unit/gram topical 1 applic topical BID 03/07/24 03/07/24 History cream pantoprazole 40 mg tablet,delayed 40 mg PO DAILYBB 03/07/24 03/07/24 History release polyethylene glycol 3350 17 gram 17 g PO TID constipation 03/07/24 03/07/24 History oral powder packet (Miralax) tizanidine 2 mg tablet 2 mg PO Q8 03/07/24 03/07/24 History urea 15 gram oral powder packet 1 packet PO BID #8 ea 03/12/24 Rx atenolol 25 mg tablet 25 mg PO BID #60 tabs 03/17/24 Rx duloxetine 30 mg capsule,delayed 90 mg (3 x 30 mg) PO DAILY 1 month 03/17/24 Rx release #90 caps enoxaparin 40 mg/0.4 mL 40 mg (0.4 mL) subcut DAILY #30 mL 03/17/24 Rx subcutaneous syringe furosemide 20 mg tablet 20 mg PO BID #60 tabs 03/17/24 Rx lorazepam 0.5 mg tablet 0.5 mg PO 0800,1400 #60 tabs 03/17/24 Rx lorazepam 1 mg tablet 1 mg PO HS #30 tabs 03/17/24 Rx losartan 50 mg tablet 50 mg PO BID #60 tabs 03/17/24 Rx Hospital Stay Data Consultations 03/07/24 16:10 ED Decision to Admit Stat 03/08/24 09:42 Consult Psychiatry Routine 03/08/24 09:43 Consult Orthopedic Surgery Routine 03/12/24 08:21 Consult Nephrology Routine Diagnostic Imagining Performed Chest X-Ray 03/07/24 12:37 XR chest 1V portable HISTORY: 73 years-old Female weakness COMPARISON: 01/22/2023 TECHNIQUE: AP view of the chest FINDINGS: Cardiac silhouette is mildly enlarged. Mild subsegmental bibasilar densities. Atherosclerosis. No pneumothorax or pleural effusion. Upper abdominal surgical clips. IMPRESSION: Cardiomegaly with mild bibasilar atelectasis. ACT 112: Negative or not required by law. The above report was generated using voice recognition software. It may contain grammatical, syntax or spelling errors. Electronically signed by: Jon Man M.D. 03/07/2024 2:[address] 03/07/24 12:38 CT head/brain wo con CLINICAL HISTORY: 73 years-old Female with AMS. Acutely altered mental status TECHNIQUE: Multiple axial CT images of the head were obtained without contrast. A dose lowering technique was utilized adhering to the principles of ALARA. CT DOSE: 547.75 mGy.cm COMPARISON: Head CT 01/22/2023 FINDINGS: Motion degraded exam. No acute intracranial hemorrhage, midline shift, intracranial mass, hydrocephalus, territorial ischemia or abnormal extra-axial collection. Involutional changes with white matter hypodensities suggestive of chronic microvascular ischemic disease. The calvarium is intact. Postoperative changes of the paranasal sinuses. Trace mastoid effusions. Right-sided lens repair. IMPRESSION: No acute intracranial abnormality identified. ACT 112: Negative or not required by law. The above report was generated using voice recognition software. It may contain grammatical, syntax or spelling errors. Electronically signed by: Jon Man M.D. 03/07/2024 1:03 PM Venous Doppler Study 03/07/24 17:16 BILATERAL LOWER EXTREMITY VENOUS DOPPLER HISTORY: Acute pain and swelling of the lower legs ro dvt COMPARISON STUDY: 05/16/2016 FINDINGS: Subcutaneous edema. There is normal compressibility, flow, and augmentation within the bilateral lower extremity deep venous systems. IMPRESSION: No DVT within the right or left lower extremity. ACT 112: Negative or not required by law. Electronically signed by: Jon Man M.D. 03/07/2024 6:30 PM Brain MRI 03/08/24 09:41 MRI OF THE BRAIN COMBO CLINICAL HISTORY: Change in mental status. Hallucinations. COMPARISON STUDY: CT of the brain dated 03/07/2024. TECHNIQUE: MRI of the brain was performed utilizing various T1 and T2-weighted sequences in the axial, sagittal, and coronal planes. Contrast-enhanced sequences were acquired following the administration of 9 cc of Gadavist. FINDINGS: Brain parenchyma: There is age-related involutional change noting minimal microangiopathic disease. There is no hemorrhage or mass effect. There is no restricted diffusion to suggest acute ischemia. No enhancing mass lesion is identified on the postcontrast images. Mejia-white matter differentiation is preserved. No extra-axial fluid collection is seen. The cerebellar tonsils are normal in configuration. Ventricles, sulci, and cisterns: Prominent secondary to involutional change. Pituitary and sella: Partially empty sella is incidentally noted. Intracranial vasculature: Normal flow voids are maintained at the skull base. Orbits: The bony orbits are grossly intact. Orbital contents are normal in appearance. Sinuses and mastoids: There is mild mucosal thickening within the left maxillary antrum and the left ethmoid sinuses. There is trace left mastoid effusion. Calvarium: Unremarkable. Cervical cord: Partially visualized cervical spinal cord is normal in morphology and signal intensity. IMPRESSION: No acute intracranial abnormality. ACT 112: Negative or not required by law. Electronically signed by: Sd Sutherland M.D. 03/08/2024 2:32 PM Knee X-Ray 03/08/24 09:43 RIGHT KNEE 2 VIEWS CLINICAL HISTORY: Recent fracture. FINDINGS: AP and crosstable lateral views of the right knee are compared to study dated 02/25/2024. The skeletal structures are osteopenic. There is unchanged appearance of a periprosthetic fracture of the proximal tibia. This involves the medial metadiaphyseal cortex, as well as the lateral tibial plateau as well as the cortex of the lateral tibial metaphysis. Alignment is unchanged from 02/25/2024. A left knee arthroplasty is in near anatomic alignment. The distal femur and proximal fibula appear intact. There has been undersurface remodeling of the patella. A small joint effusion persists. Soft tissue swelling is present around the knee. IMPRESSION: 1. There is unchanged alignment of a periprosthetic fracture of the proximal tibia. 2. No additional fracture is seen. 3. Soft tissue swelling and joint effusion. 4. A right knee arthroplasty is in near anatomic alignment. Electronically signed by: Sd Sutherland M.D. 03/08/2024 2:36 PM Knee X-Ray 03/08/24 09:43 XR knee LT 1 or 2V routine HISTORY: 73 years-old Female recent fx chronic bilateral knee pain COMPARISON: 02/25/2024 TECHNIQUE: 2 views of the left knee FINDINGS: Demineralized appearance of the bones. Total arthroplasty with patellar resurfacing. Moderate-sized joint effusion with prepatellar soft tissue swelling redemonstrated. Acute and displaced avulsion fracture of the tibial tuberosity redemonstrated with progressive anterosuperior displacement. Anterior displacement of 1.5 cm. IMPRESSION: Progressive anterosuperior displacement of the acute avulsion fracture of the tibial tuberosity. ACT 112: Negative or not required by law. The above report was generated using voice recognition software. It may contain grammatical, syntax or spelling errors. Electronically signed by: Jon Man M.D. 03/08/2024 2:53 PM Pending Results Patient Have Any Pending Studies at Discharge: No Discharge Instructions Given to Patient (Per Discharging Provider) MEDICATION CHANGES: * Atenolol increased to 25 mg twice a day due to elevated blood pressure * Furosemide ( Lasix) was increased to twice a day * Cymbalta increased to 90 mg daily * Losartan was resumed 50 mg by mouth twice daily during this admission due to elevated blood pressure NEW MEDICATIONS * lorazepam 1 mg at bedtime * lorazepam 0.5 mg 1 tablet at 8 AM and 1 tablet at 2 PM * urea 15 g packet by mouth twice daily * Lovenox 40 mg subcutaneous injection, inject into subcutaneous area on abdomen daily at 9 AM, this is for blood clot prevention while nonambulatory SUMMARY OF TEST RESULTS: You were admitted to hospital due to having significant visual hallucinations. This was felt to be secondary to infection in setting of right lower extremity cellulitis, acute on chronic low sodium, opiate pain medications, Lack of Sleep and uncontrolled anxiety. The above conditions were treated and your symptoms resolved. You were seen and evaluated by your orthopedic surgeon and your sutures were removed. You had follow up Xrays. You were seen and evaluated by Psychiatry and had medication adjustments. PENDING TEST RESULTS: None RECOMMENDATIONS FOR FOLLOW-UP: Please follow-up with your primary care provider as scheduled. It is recommended that you have your sodium level and kidney function rechecked at this appointment. Please follow-up with nephrology as scheduled. They are to reach out to you for your follow up appt. You will need to schedule a follow up appointment with Dr. Tanner. He would like to see you in clinic in 3 weeks from discharge date. Please call their office and schedule and appointment. Continue 1500ml fluid restriction due to low sodium. This does not count protein shakes. Please monitor your blood pressure twice daily and keep a log of this. Take this log with you to your next schedule primary care appointment. You had some med ication adjustments while hospitalized and you may need further adjustment after discharge. Please continue to follow all Orthopedic instructions per Dr. Tanner. You are nonweightbearing to both lower extremities until determined by Dr. Tanner. OTHER INSTRUCTIONS: Seek medical attention if you have: * temperature above 101 * chest pain or trouble breathing * abdominal pain, nausea, vomiting * diarrhea, dark stools or bloody stools * any unanswered questions or concerns Call 911 if symptoms are severe. Please take good care of yourself. It has been a pleasure taking care of you. Please take care of yourself. If you have any questions regarding your recent hospitalization please contact [facility] and request Fred Sumeet @ [phone]. Priti Hightower PA-C Total Time Total Time Spent Total Time Spent (In Minutes): 45 minutes Supervising Physician Co-Signing Physician Notes Patient seen and examined at bedside. Discussed with above provider Pt is s/p atb course for rt ankle cellulitis, which has resolved. Patient's serum sodium continues to improve with Lasix, oral urea and fluid restriction No significant overnight events Vital signs stable Case management on board for arrangement of hospital bed, home health services. Patient is stable for discharge I have reviewed the advanced practitioner's documentation, and I agree with, and take responsibility for the plan of care I spent a total of 20 minutes coordinating, documenting, and providing care for this patient excluding time spent in the performance of separately billed services. All of the aforementioned completed while collaborating with the assigned advanced practitioner for a full treatment plan Home Health Attestation I certify that this patient is under my care and that I, or a physicians showroom sales assistant working with me, had a face to-face encounter that meets the home health [id number] encounter requirements with this patient. The encounter with the patient was in whole, or in part, for the following medical condition, which is the primary reason for home health care (list medical condition): right tibia fracture, left tibia fracture I certify that, based on my findings, the following services are medically necessary home health services: My clinical findings support the need for the above services because: Caregiver Instruct Med Mgmt, Safety, Disease Process, Signs to Report Home Safety Assessment OT Assess ADL Status and Restore Function w ADLs Prevention of Pressure Areas PT Assessment for Endurance / Balance / Strength PT Eval for Safety and Mobility Safety Skilled Nsg Assessment Teach on Disease Management and Interventions Further, I certify that my clinical findings support that this patient is homebound (i.e. absences from home require considerable and taxing effort and are for medical reasons or [facility] or infrequently or of short duration when for other reasons) because: Chair Bound; Requires Transfer Assist Maximum Assistance with All Activities Maximum Assistance with Ambulation and ADL's Supportive Aid - Wheelchair Transportation Assistance/Unable to Leave Home Unassisted Certification for Home Health Services: Based on the above findings, I certify that this patient is confined to the home and needs intermittent halfway care, physical therapy and/or speech therapy or continues to need occupational therapy. The patient is under my care, and I have initiated the establishment of the plan of care. This patient will be followed by a physician who will periodically review the plan of care.
== END 2024-03-17 17:21 | disposition home health service (06) | DRG 602 ==
LOC: ED 11:48 → EDINP 17:21 → SUATTDRO 17:21 → 4W 03-08 01:03 → 3E 03-08 21:31

== ENCOUNTER 2024-07-27 04:05 | Observation (INO) ==
--- NOTE | 2024-07-27 04:56 | Emergency Department Note ---
Impression & Plan Noncompliance with medications, Restless leg syndrome, Insomnia, Acute dehydration admit to the [facility] ED Provider Note NAME: KIRSTEN BANUELOS AGE: 73 SEX: Female INFORMANT: Patient ED PROVIDER(S): Olivia Tamez DO CHIEF COMPLAINT: no sleep; vibrating legs PLAN: Disposition: Admit to the [facility] MEDICAL DECISION MAKING: this is a 73-year-old female patient with history of restless leg syndrome who is out of her Mirapex. She describes not having any sleep tonight because her legs are vibrating. This is led to significant increased anxiety. Patient has a history of neuropathy and restless leg syndrome. She describes only having 2 to 3 hours of sleep a night over the past month. patient is hemodynamically stable. Laboratory studies revealed no leukocytosis or anemia. The patient's BUN is elevated at 41. The patient explains to me that she had her BUN checked earlier Today through home laboratory testing and it was 20. Creatinine was normal at 0.87. Glucose was 99. on physical exam, the patient appears dehydrated. Patient was bolused with 500 cc of saline. She was given a dose of IV Ativan for obvious anxiety. We gave her her oral dose of Mirapex here in the ER. She complained of dental pain as a result of grinding her teeth. She was given a dose of IV fentanyl and Zofran to prevent nausea. She was given a second dose of IV Ativan throughout her stay here in the ER as she does suffer from significant anxiety and it seems by history that she has not been taking her antianxiety medications as prescribed at home. Despite taking her medications, the patient has continued significant anxiety here in the ER. She is tachypneic and her legs are quite restless. In reviewing her medical record, she had an episode in February of this year where she had an exacerbation of her anxiety, PTSD and hallucinated. Care/management discussed with: estimator project manager and [facility] group Level of care consideration(s): After review of the information above and other included data, I feel the patient requires escalation of care to admission. Triage Nursing notes: reviewed and agree With them. Vital Signs: reviewed and unremarkable Additional History obtained from: friend at the bedside Chronic Medical/Social Conditions affecting care: polymyositis; restless leg syndrome; neuropathy Differential Diagnosis: Anxiety, medication noncompliance, exacerbation of restless leg syndrome, insomnia, serotonin syndrome Diagnostics, independently interpreted by me: Cardiac Monitoring: Normal sinus rhythm at a rate of 82 HPI: 73 year old Female arrives for evaluation of increased restless leg. Patient explains that she ran out of her medication-Mirapex. She was unable to get the medications picked up at the pharmacy and asked them to mail them to her. She has not yet received them. Patient states that it is typical for her to get 2 to 3 hours of sleep at night and not nap during the day. This has been ongoing for months. Tonight, she has not slept at all. She explains that her legs feel like they are vibrating. PAST MEDICAL HISTORY: See Below, PAST SURGICAL HISTORY: See Below, SOCIAL HISTORY: See Below, HOME MEDICATIONS: See list ALLERGIES: See list VITALS: See Below PHYSICAL EXAMINATION: General: The patient is quite anxious on exam. HEENT: Head - normocephalic and atraumatic. Pupils are equal, round, and reactive to light. Extraocular eye muscles are intact, and sclera are anicteric. Nose -dry nasal mucosa without discharge. Mouth -extremely dry buccal mucosa. Oropharynx is nonerythematous and there is no tonsillar exudate or edema noted. Neck: Supple; no JVD or cervical lymphadenopathy. Heart: Regular rate and rhythm. There is a normal S1 and S2 with no murmurs, clicks, or gallops appreciated. Lungs: Clear to auscultation bilaterally with no wheezes, rales, or rhonchi. Abdomen: Soft, completely nontender, nondistended, with good bowel sounds. There are no palpable pulsatile masses or hepatosplenomegaly. There is no guarding, rigidity, or rebound noted. Extremities: No evidence of cyanosis, clubbing, or edema. There are easily palpable peripheral pulses. Skin: warm and dry with good turgor and no rashes. Emergency department treatment: IV Ativan, oral Mirapex, IV normal saline bolus, IV Ativan, IV fentanyl, IV Zofran Emergency department course: The patient was evaluated in room C-8. A complete history and physical was performed. IV lock was initiated and labs were drawn as above. An order was placed for continuous cardiac monitoring. The patient was in a normal sinus rhythm at a rate of 82. Patient was given an IV dose of Ativan to help with her anxiety and restless legs. Her usual dose of Mirapex was ordered from the pharmacy. Patient became increasingly anxious and tachypneic. Restless legs seem to worsen before she received her dose of Mirapex coming from the pharmacy. She was given a second dose of IV Ativan. I reviewed the labs that were drawn. She was bolused with IV normal saline solution. She complained of significant dental pain from grinding her teeth. She was given a dose of IV fentanyl and IV Zofran. I had an additional lengthy conversation with the patient about how she has been taking her medications. I am not convinced that she is taking her BuSpar, cyproheptadine, or duloxetine the right way. It seems that she may be missing doses of this. I discussed the case with the [facility] Hospitalist and they will evaluate for further inpatient care. 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 Encounter for pre-operative examination Hallucinations, visual (Acute) Acute confusion (Acute) AMS (altered mental status) Fall Polypharmacy (Acute) Status post left knee replacement (~09/2022) Arthritis Myopathy (Acute) Osteoarthritis (Chronic) Chronic pain Hyponatremia (Acute) Hx RLS (restless legs syndrome) Closed fracture of right distal femur 2019 no surgery Anemia (Chronic) HTN (hypertension) (Chronic) controlled, stable per pt Dyslipidemia (Chronic) Hypothyroidism (Chronic) Depression (Chronic) Anxiety (Chronic) Gastroparesis (Chronic) GERD (gastroesophageal reflux disease) (Chronic) controlled symptoms per pt Polymyositis (Chronic) MTX Medical History Seasonal allergies Chronic rhinitis Hiatal hernia Neuropathy Refusal of blood product Elevated hemidiaphragm Dysphagia Interstitial lung disease Hx of migraines History of COVID-19 History of carotid artery disease Diverticulitis Surgical History Hx of cataract extraction Hx of right cataract extraction H/O hemorrhoidectomy History of tubal ligation Nausea and vomiting after administration of anesthetic agent History of esophagogastroduodenoscopy (EGD) Hx of colonoscopy Hx of squamous cell carcinoma excision History of back surgery Family History Other No significant family history Social History Smoking Status: Never smoker Second Hand Exposure: Yes (in past); Do You Dip or Chew Tobacco: No; Hx Alcohol Use: No Hx Substance Use: No Preferred Language: Nepalese Communication Ability: Effective Retail Helper Required: No Beliefs That Will Affect Care: None Current Living Situation: Alone Current Living Situation Comment: From [facility] Feels Safe at Home: Yes Assistive Devices: Walker Allergies Allergies Allergy/AdvReac Type Severity Reaction Status Date / Time diphenhydramine Allergy Intermediate Hallucinati Verified 02/25/24 17:04 [From Benadryl] ng morphine AdvReac Severe Low BP Verified 02/25/24 17:04 gabapentin AdvReac Intermediate swelling Verified 02/25/24 17:04 of lower legs lisinopril AdvReac Intermediate Cough Verified 02/25/24 17:04 pregabalin [From Lyrica] AdvReac Intermediate sweating/ho Verified 02/25/24 17:04 t Home Meds Home Medications Medication Instructions Recorded Confirmed bupropion HCl 150 mg 24 hr tablet, 150 mg PO QAM 07/11/19 07/27/24 extended release (Wellbutrin XL) buspirone 10 mg tablet 10 mg PO .EVERY 8 HRS 07/11/19 07/27/24 cholecalciferol (vitamin D3) 125 5,000 unit PO QAM 07/11/19 07/27/24 mcg (5,000 unit) tablet (Vitamin D3) cyproheptadine 4 mg tablet 8 mg PO HS 07/11/19 07/27/24 docusate sodium 100 mg capsule 100 mg PO AMHS 07/11/19 07/27/24 ferrous sulfate 325 mg (65 mg 325 mg PO Q2D 07/11/19 07/27/24 iron) tablet folic acid 1 mg tablet 1 mg PO QAM 07/11/19 07/27/24 omeprazole 20 mg capsule,delayed 20 mg PO AMHS 07/11/19 07/27/24 release levothyroxine 88 mcg tablet 88 mcg PO DAILYBB 08/19/22 07/27/24 meclizine 12.5 mg tablet 12.5 mg PO TID PRN Dizziness 01/22/23 07/27/24 ondansetron HCl 4 mg tablet 4 mg PO Q6 PRN Nausea 01/22/23 07/27/24 valacyclovir 500 mg tablet 500 mg PO QAM 01/22/23 07/27/24 azathioprine 50 mg tablet 50 mg PO QAM 11/25/23 07/27/24 azelastine 137 mcg (0.1 %) nasal See Rx Instructions .Route .COMPLEX 02/25/24 07/27/24 spray cyanocobalamin (vitamin B-12) 5,000 mcg sublingual DAILY 02/25/24 07/27/24 5,000 mcg sublingual tablet (Vitamin B-12) pramipexole 0.25 mg tablet 0.5 mg PO Q8 02/25/24 07/27/24 vit C 50 mg-E 15 unit-zinc cit 4.5 1 tab PO DAILY 02/25/24 07/27/24 mg-lutein 2.5 mg-zeaxan chew tablet ([facility]) vitamin B complex 1 tab PO DAILY 02/25/24 07/27/24 acetaminophen 500 mg tablet 1,000 mg PO Q8 03/07/24 07/27/24 atorvastatin 10 mg tablet 10 mg PO HS 03/07/24 07/27/24 calcium carbonate 500 mg PO BID 03/07/24 07/27/24 magnesium oxide 400 mg PO DAILY 03/07/24 07/27/24 multivitamin 1 tab PO HS 03/07/24 07/27/24 nystatin 100,000 unit/gram topical See Rx Instructions .Route .COMPLEX 03/07/24 07/27/24 cream pantoprazole 40 mg tablet,delayed 40 mg PO DAILYBB 03/07/24 07/27/24 release polyethylene glycol 3350 17 gram 17 g PO TID constipation 03/07/24 07/27/24 oral powder packet (Miralax) tizanidine 2 mg tablet 2 mg PO Q8 03/07/24 07/27/24 Previous Rx's Medication Instructions Recorded aspirin 81 mg tablet,delayed 81 mg PO DAILY 42 days #0 tabs 02/29/24 release atenolol 25 mg tablet 25 mg PO BID #60 tabs 03/17/24 furosemide 20 mg tablet 20 mg PO BID #60 tabs 03/17/24 lorazepam 0.5 mg tablet 0.5 mg PO 0800,1400 #60 tabs 03/17/24 lorazepam 1 mg tablet 1 mg PO HS #30 tabs 03/17/24 losartan 50 mg tablet 50 mg PO BID #60 tabs 03/17/24 duloxetine 30 mg capsule,delayed 30 mg PO DAILY #30 caps 03/18/24 release (Cymbalta) duloxetine 60 mg capsule,delayed 60 mg PO DAILY #30 caps 03/18/24 release (Cymbalta) Results & Data (ED) Vital Signs Vital Signs - 24 hr 07/27/24 04:08 07/27/24 04:18 07/27/24 04:37 Temperature 36.8 C Temperature Source Temporal Artery Scan Pulse Rate 81 84 Pulse Rate [Apical] 74 Pulse Rhythm [Apical] Regular Pulse Strength [Apical] Respiratory Rate 22 22 Respiratory Effort / Characteristics Non-Labored Spontaneous Respiratory Depth Normal Respiratory Pattern Regular Blood Pressure 162/104 H Blood Pressure [Right Arm] 133/70 Blood Pressure Mean 123 Blood Pressure Mean [Right Arm] 91 Blood Pressure Position [Right Arm] Semi-fowlers Pulse Oximetry 97 97 Oxygen Delivery Method Room Air Oxygen Flow Rate Sepsis Recent Fever Within 48 Hours No Sepsis New/Unexplained Change in Mental Status No Sepsis Action Taken by Nursing No Action Required 07/27/24 06:12 07/27/24 07:18 07/27/24 09:00 Temperature 36.5 C 36.5 C Temperature Source Oral Oral Pulse Rate Pulse Rate [Apical] 85 84 80 Pulse Rhythm [Apical] Regular Regular Regular Pulse Strength [Apical] Normal Normal Respiratory Rate 18 20 20 Respiratory Effort / Characteristics Non-Labored Spontaneous Non-Labored Spontaneous Non-Labored Spontaneous Respiratory Depth Normal Normal Normal Respiratory Pattern Regular Regular Regular Blood Pressure Blood Pressure [Right Arm] 166/82 H 153/100 H 130/84 Blood Pressure Mean Blood Pressure Mean [Right Arm] 110 117 99 Blood Pressure Position [Right Arm] Semi-fowlers Lying Lying Pulse Oximetry 97 94 94 Oxygen Delivery Method Room Air Room Air Nasal Cannula Oxygen Flow Rate 2 Sepsis Recent Fever Within 48 Hours Sepsis New/Unexplained Change in Mental Status Sepsis Action Taken by Nursing 07/27/24 09:07 Temperature Temperature Source Pulse Rate 81 Pulse Rate [Apical] Pulse Rhythm [Apical] Pulse Strength [Apical] Respiratory Rate Respiratory Effort / Characteristics Respiratory Depth Respiratory Pattern Blood Pressure Blood Pressure [Right Arm] Blood Pressure Mean Blood Pressure Mean [Right Arm] Blood Pressure Position [Right Arm] Pulse Oximetry Oxygen Delivery Method Oxygen Flow Rate Sepsis Recent Fever Within 48 Hours Sepsis New/Unexplained Change in Mental Status Sepsis Action Taken by Nursing Laboratory Data 07/27/24 04:37 07/27/24 04:37 Lab Results 07/27/24 Range/Units 04:37 WBC 8.26 (4.8-10.8) K/ul RBC 3.74 L (4.20-5.40) M/uL Hgb 12.8 (12.0-16.0) g/dl Hct 39.1 (37.0-47.0) % MCV 104.5 H (80.0-100.0) fL MCH 34.2 H (25.0-34.0) pg MCHC 32.7 (32.0-36.0) g/dL RDW Std Deviation 56.0 H (36.4-46.3) fL RDW Coeff of Alo 14.4 (11.5-14.5) % Plt Count 308 (130-400) K/uL MPV 8.8 L (9.4-12.4) fL Immature Gran % (Auto) 0.2 % Neut % (Auto) 57.9 % Lymph % (Auto) 28.7 % [place] % (Auto) 8.4 % Eos % (Auto) 4.1 % Baso % (Auto) 0.7 % Neut # (Auto) 4.78 (1.40-6.50) K/uL Lymph # (Auto) 2.37 (1.20-3.40) K/uL [place] # (Auto) 0.69 H (0.11-0.59) K/uL Eos # (Auto) 0.34 (0.00-0.50) K/uL Baso # (Auto) 0.06 (0.00-0.20) K/uL Immature Gran # (Auto) 0.02 (0.01-0.20) K/uL Sodium 137 (136-145) mmol/L Potassium 3.8 (3.5-5.1) mmol/L Chloride 105 (98-107) mmol/L Carbon Dioxide 22 (21-32) mmol/L Anion Gap 10 (3-11) BUN 41 H (6-23) mg/dl Creatinine 0.87 (0.6-1.2) mg/dl Est Cr Clr Drug Dosing Not Reportable eGFR 70.74 BUN/Creatinine Ratio 47.1 H (10-20) Glucose 99 (70-99(Fasting)) mg/dl Calcium 9.8 (8.6-10.3) mg/dl Total Bilirubin 0.4 (0.2-1.0) mg/dl AST 18 (13-39) U/L ALT 15 (7-52) U/L Alkaline Phosphatase 90 (34-104) U/L Total Protein 7.3 (6.0-8.3) gm/dl Albumin 4.3 (3.4-5.0) gm/dl Globulin 3.0 (2.5-4.0) gm/dl Albumin/Globulin Ratio 1.4 (0.9-2) Administered Medications Discontinued Medications Fentanyl Citrate (Fentanyl Citrate Pf 100 Mcg/2 Ml Vial) 50 mcg IV NOW STA Stop: 07/27/24 07:39 Last Admin: 07/27/24 07:44 Dose: 50 mcg Documented By: JEANNE Sodium Chloride (Nss) 500 mls @ 999 mls/hr IV .Q31M ONE Stop: 07/27/24 08:07 Last Infusion: 07/27/24 09:02 Dose: Infused Documented By: Admin: 07/27/24 07:48 Dose: 999 mls/hr Documented By: JEANNE Lorazepam (Lorazepam 2 Mg/1 Ml Vial) 0.5 mg IV NOW STA Stop: 07/27/24 04:51 Last Admin: 07/27/24 05:08 Dose: 0.5 mg Documented By: MONSE Lorazepam (Lorazepam 2 Mg/1 Ml Vial) 1 mg IV NOW STA Stop: 07/27/24 06:31 Last Admin: 07/27/24 06:36 Dose: 1 mg Documented By: MONSE Ondansetron HCl (Ondansetron Inj 2 Mg/Ml 2 Ml Vial) 4 mg IV NOW STA Stop: 07/27/24 07:39 Last Admin: 07/27/24 07:44 Dose: 4 mg Documented By: JEANNE Pramipexole Dihydrochloride (Pramipexole Dihydrochlo 0.5 Mg Tab) 0.5 mg PO NOW STA Stop: 07/27/24 06:27 Last Admin: 07/27/24 07:26 Dose: 0.5 mg Documented By: JEANNE Discharge Plan Visit Data Chief Complaint: Anxiety Stated Complaint: RESTLESS LEGS, ANXIETY,NOT SLEEPING ED Provider: Olivia Tamez Discharge Problem: Noncompliance with medications, Restless leg syndrome, Insomnia, Acute dehydration Forms Stand Alone Forms: [facility], Suicide Prevention Resources Prescriptions Prescriptions: No Action cyproheptadine 4 mg Tablet 8 mg PO HS ferrous sulfate 325 mg (65 mg iron) Tablet 325 mg PO Q2D buspirone 10 mg Tablet 10 mg PO .EVERY 8 HRS docusate sodium 100 mg Capsule 100 mg PO AMHS omeprazole 20 mg Capsule,Delayed Release(Dr/Ec) 20 mg PO AMHS folic acid 1 mg Tablet 1 mg PO QAM bupropion HCl [Wellbutrin XL] 150 mg Tablet Extended Release 24 Hr 150 mg PO QAM cholecalciferol (vitamin D3) [Vitamin D3] 5,000 unit Tablet 5,000 unit PO QAM levothyroxine 88 mcg Tablet 88 mcg PO DAILYBB Rx Instructions: before breakfast ondansetron HCl 4 mg tablet 4 mg PO Q6 PRN (Reason: Nausea) meclizine 12.5 mg tablet 12.5 mg PO TID PRN (Reason: Dizziness) valacyclovir 500 mg tablet 500 mg PO QAM pramipexole 0.25 mg tablet 0.5 mg PO Q8 Rx Instructions: 1/2 tablet dose vitamin B complex Tablet 1 tab PO DAILY azelastine 137 mcg (0.1 %) Aerosol,[place] See Rx Instructions .ROUTE .COMPLEX Rx Instructions: 1 spray into each nostril every 12 hours as needed . Administer into each nostril cyanocobalamin (vitamin B-12) [Vitamin B-12] 5,000 mcg Tablet, Sublingual 5,000 mcg SUBLINGUAL DAILY [facility] 50 mg-15 unit- 4.5 mg-2.5 mg Tablet,Chewable 1 tab PO DAILY aspirin 81 mg tablet,delayed release (DR/EC) 81 mg PO DAILY 42 Days Qty: 0 0RF acetaminophen 500 mg Tablet 1,000 mg PO Q8 polyethylene glycol 3350 [Miralax] 17 gram powder in packet 17 g PO TID tizanidine 2 mg tablet 2 mg PO Q8 calcium carbonate 500 mg calcium (1,250 mg) Tablet 500 mg PO BID atorvastatin 10 mg Tablet 10 mg PO HS multivitamin Tablet 1 tab PO HS pantoprazole 40 mg Tablet,Delayed Release (Dr/Ec) 40 mg PO DAILYBB nystatin 100,000 unit/gram Cream See Rx Instructions .ROUTE .COMPLEX Rx Instructions: Apply 1 application topically twice a day as needed magnesium oxide 400 mg magnesium Tablet 400 mg PO DAILY losartan 50 mg Tablet 50 mg PO BID Qty: 60 0RF lorazepam 0.5 mg Tablet 0.5 mg PO 0800,1400 Qty: 60 0RF Rx Instructions: Per patients daughter- patient received both strengths of lorazepam in the mail and she accidently threw it away- she hasn't had either prescriptions for about 1 month lorazepam 1 mg Tablet 1 mg PO HS Qty: 30 0RF Rx Instructions: Per patients daughter- patient received both strengths of lorazepam in the mail and she accidently threw it away- she hasn't had either prescriptions for about 1 month atenolol 25 mg Tablet 25 mg PO BID Qty: 60 0RF furosemide 20 mg Tablet 20 mg PO BID Qty: 60 0RF duloxetine [Cymbalta] 30 mg capsule,delayed release(DR/EC) 30 mg PO DAILY Qty: 30 0RF Rx Instructions: Take one tablet daily along with a 60mg daily to = 90mg a day. duloxetine [Cymbalta] 60 mg capsule,delayed release(DR/EC) 60 mg PO DAILY Qty: 30 0RF Rx Instructions: Take one capsule by mouth daily along with a 30mg capsule to = 90mg daily azathioprine 50 mg tablet 50 mg PO QAM Referrals Referrals: Uma Mark DO [Primary Care Provider] -
[2024-07-27] MEDS: LORazepam 2 MG/1 ML VIAL IV STA ×2 (05:08→06:36)
[2024-07-27 05:30] LABS: Basophils # (auto) 0.06 K/uL (0.00-0.20); Basophils % (auto) 0.7 %; Eosinophils # (auto) 0.34 K/uL (0.00-0.50); Eosinophils % (auto) 4.1 %; Hematocrit (blood only) 39.1 % (37.0-47.0); Hemoglobin 12.8 g/dl (12.0-16.0); Immature Granulocytes # (auto) 0.02 K/uL (0.01-0.20); Immature Granulocytes % (auto) 0.2 %; Lymphocytes # (auto) 2.37 K/uL (1.20-3.40); Lymphocytes % (auto) 28.7 %; Mean Corpuscular Hemoglobin 34.2 pg (25.0-34.0); Mean Corpuscular Hgb Conc 32.7 g/dL (32.0-36.0); Mean Corpuscular Volume 104.5 fL (80.0-100.0); Mean Platelet Volume 8.8 fL (9.4-12.4); Monocytes # (auto) 0.69 K/uL (0.11-0.59); Monocytes % (auto) 8.4 %; Neutrophils # (auto) 4.78 K/uL (1.40-6.50); Neutrophils % (auto) 57.9 %; Platelet Count 308 K/uL (130-400); RDW Coefficient of Variation 14.4 % (11.5-14.5); Red Blood Count 3.74 M/uL (4.20-5.40); White Blood Count 8.26 K/ul (4.8-10.8)
[2024-07-27 05:41] LABS: Alanine Aminotransferase 15 U/L (7-52); Albumin Globulin Ratio 1.4 (0.9-2); Albumin Level 4.3 gm/dl (3.4-5.0); Alkaline Phosphatase 90 U/L (34-104); Anion Gap 10 (3-11); Aspartate Aminotransferase 18 U/L (13-39); BUN Creatinine Ratio 47.1 (10-20); Bilirubin,Total 0.4 mg/dl (0.2-1.0); Blood Urea Nitrogen 41 mg/dl (6-23); Calcium 9.8 mg/dl (8.6-10.3); Carbon Dioxide 22 mmol/L (21-32); Chloride 105 mmol/L (98-107); Glucose 99 mg/dl (70-99(Fasting)); Potassium 3.8 mmol/L (3.5-5.1); Sodium 137 mmol/L (136-145); Total Protein 7.3 gm/dl (6.0-8.3)
[2024-07-27] MEDS: PRAMIPEXOLE DIHYDROCHLO 0.5 MG TAB PO STA (07:26)
[2024-07-27] MEDS: ONDANSETRON INJ 2 MG/ML 2 ML VIAL IV STA (07:44)
[2024-07-27] MEDS: fentaNYL citrate PF 100 MCG/2 ML VIAL IV STA (07:44)
[2024-07-27] MEDS: SODIUM CHLORIDE 0.9% 500 ML IV ONE (07:48)
--- NOTE | 2024-07-27 10:20 | History & Physical Report ---
Date of Service July 27, 2024 Assessment & Plan (1) Restless leg syndrome: (2) Chronic hyponatremia: (3) Post traumatic stress disorder (PTSD): (4) Polypharmacy: (5) Myopathy: (6) Osteoarthritis: (7) HTN (hypertension): (8) Dyslipidemia: (9) Hypothyroidism: (10) Depression: (11) Polymyositis: Plan Assessment and plan: KING: Patient reports the possibility of ILD Check chest x-ray/echo to rule out other underlying causes No hypoxia noted, no respiratory symptoms/leukocytosis to indicate PNA If testing unremarkable & symptoms continue, consider CT chest outpatient Anxiety/PTSD Depression Continue Wellbutrin/buspirone/cyproheptadine/lorazepam RLS Insomnia: Continue Mirapex Hx SIADH: Continue Lasix, NA 137, stable, follows with nephrology outpatient Hx HTN/HLD: Continue losartan/atenolol Hx polymyositis: Continue azathioprine Hx GERD: Continue pantoprazole If echo/chest x-ray unremarkable, plan for ADC home tomorrow 07/28 Patient is a DNR/DNI DVT prophylaxis: Lovenox A total of 60 minutes was spent on chart review/review of diagnostic studies/facilitation of plan of care/discussion with consultants History of Present Illness Chief Complaint: Anxiety, RLS Primary Care Provider: Uma Mark DO The patient is a 73-year-old female with a past medical history of insomnia, RLS, anxiety, PTSD, HTN, myopathy, hypothyroidism, depression, SIADH, GERD, polymyositis who presents to the ED on 07/27/2024 with concerns of insomnia and worsening RLS. Patient reports that she has not been able to take her Mirapex over the past few days because she did not have a refill available. Reports her anxiety has been worsening. On arrival to the ED, respirations were in the 60s, no hypoxia was noted. On exam, the patient's respirations are now in the 20s. She denies any shortness of breath. Does report some dyspnea on exertion. Denies chest pain/fever/chills/recent respiratory illness. There were concerns with the patient's inability to manage her own medications. The patient's daughter is at bedside and reports setting up her medications for her on a daily basis. On arrival to the ED, labs remarkable for RBC 3.74, BUN 41, The patient was given IV lorazepam and fentanyl, Mirapex The patient will be admitted for further management of medications Allergies Allergy/AdvReac Type Severity Reaction Status Date / Time diphenhydramine Allergy Intermediate Hallucinati Verified 02/25/24 17:04 [From [place]] ng morphine AdvReac Severe Low BP Verified 02/25/24 17:04 gabapentin AdvReac Intermediate swelling Verified 02/25/24 17:04 of lower legs lisinopril AdvReac Intermediate Cough Verified 02/25/24 17:04 pregabalin [From Lyrica] AdvReac Intermediate sweating/ho Verified 02/25/24 17:04 t Home Medications Medication Instructions Recorded Confirmed Type bupropion HCl 150 mg 24 hr tablet, 150 mg PO QAM 07/11/19 07/27/24 History extended release (Wellbutrin XL) buspirone 10 mg tablet 10 mg PO .EVERY 8 HRS 07/11/19 07/27/24 History cholecalciferol (vitamin D3) 125 5,000 unit PO QAM 07/11/19 07/27/24 History mcg (5,000 unit) tablet (Vitamin D3) cyproheptadine 4 mg tablet 8 mg PO HS 07/11/19 07/27/24 History docusate sodium 100 mg capsule 100 mg PO AMHS 07/11/19 07/27/24 History ferrous sulfate 325 mg (65 mg 325 mg PO Q2D 07/11/19 07/27/24 History iron) tablet folic acid 1 mg tablet 1 mg PO QAM 07/11/19 07/27/24 History omeprazole 20 mg capsule,delayed 20 mg PO AMHS 07/11/19 07/27/24 History release levothyroxine 88 mcg tablet 88 mcg PO DAILYBB 08/19/22 07/27/24 History meclizine 12.5 mg tablet 12.5 mg PO TID PRN Dizziness 01/22/23 07/27/24 History ondansetron HCl 4 mg tablet 4 mg PO Q6 PRN Nausea 01/22/23 07/27/24 History valacyclovir 500 mg tablet 500 mg PO QAM 01/22/23 07/27/24 History azathioprine 50 mg tablet 50 mg PO QAM 11/25/23 07/27/24 History azelastine 137 mcg (0.1 %) nasal See Rx Instructions .Route .COMPLEX 02/25/24 07/27/24 History spray cyanocobalamin (vitamin B-12) 5,000 mcg sublingual DAILY 02/25/24 07/27/24 History 5,000 mcg sublingual tablet (Vitamin B-12) pramipexole 0.25 mg tablet 0.5 mg PO Q8 02/25/24 07/27/24 History vit C 50 mg-E 15 unit-zinc cit 4.5 1 tab PO DAILY 02/25/24 07/27/24 History mg-lutein 2.5 mg-zeaxan chew tablet ([facility]) vitamin B complex 1 tab PO DAILY 02/25/24 07/27/24 History aspirin 81 mg tablet,delayed 81 mg PO DAILY 42 days #0 tabs 02/29/24 07/27/24 Rx release acetaminophen 500 mg tablet 1,000 mg PO Q8 03/07/24 07/27/24 History atorvastatin 10 mg tablet 10 mg PO HS 03/07/24 07/27/24 History calcium carbonate 500 mg PO BID 03/07/24 07/27/24 History magnesium oxide 400 mg PO DAILY 03/07/24 07/27/24 History multivitamin 1 tab PO HS 03/07/24 07/27/24 History nystatin 100,000 unit/gram topical See Rx Instructions .Route .COMPLEX 03/07/24 07/27/24 History cream pantoprazole 40 mg tablet,delayed 40 mg PO DAILYBB 03/07/24 07/27/24 History release polyethylene glycol 3350 17 gram 17 g PO TID constipation 03/07/24 07/27/24 History oral powder packet (Miralax) tizanidine 2 mg tablet 2 mg PO Q8 03/07/24 07/27/24 History atenolol 25 mg tablet 25 mg PO BID #60 tabs 03/17/24 07/27/24 Rx furosemide 20 mg tablet 20 mg PO BID #60 tabs 03/17/24 07/27/24 Rx lorazepam 0.5 mg tablet 0.5 mg PO 0800,1400 #60 tabs 03/17/24 07/27/24 Rx lorazepam 1 mg tablet 1 mg PO HS #30 tabs 03/17/24 07/27/24 Rx losartan 50 mg tablet 50 mg PO BID #60 tabs 03/17/24 07/27/24 Rx duloxetine 30 mg capsule,delayed 30 mg PO DAILY #30 caps 03/18/24 07/27/24 Rx release (Cymbalta) duloxetine 60 mg capsule,delayed 60 mg PO DAILY #30 caps 03/18/24 07/27/24 Rx release (Cymbalta) 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 Encounter for pre-operative examination Hallucinations, visual (Acute) Acute confusion (Acute) AMS (altered mental status) Fall Polypharmacy (Acute) Status post left knee replacement (~09/2022) Arthritis Myopathy (Acute) Osteoarthritis (Chronic) Chronic pain Hyponatremia (Acute) Hx RLS (restless legs syndrome) Closed fracture of right distal femur 2019 no surgery Anemia (Chronic) HTN (hypertension) (Chronic) controlled, stable per pt Dyslipidemia (Chronic) Hypothyroidism (Chronic) Depression (Chronic) Anxiety (Chronic) Gastroparesis (Chronic) GERD (gastroesophageal reflux disease) (Chronic) controlled symptoms per pt Polymyositis (Chronic) MTX Medical History Seasonal allergies Chronic rhinitis Hiatal hernia Neuropathy Refusal of blood product Elevated hemidiaphragm Dysphagia Interstitial lung disease Hx of migraines History of COVID-19 History of carotid artery disease Diverticulitis Surgical History Hx of cataract extraction Hx of right cataract extraction H/O hemorrhoidectomy History of tubal ligation Nausea and vomiting after administration of anesthetic agent History of esophagogastroduodenoscopy (EGD) Hx of colonoscopy Hx of squamous cell carcinoma excision History of back surgery Family History Other No significant family history Social History Smoking Status: Never smoker Second Hand Exposure: Yes (in past); Do You Dip or Chew Tobacco: No; Hx Alcohol Use: No Hx Substance Use: No Preferred Language: [place] Island[place] Communication Ability: Effective Medication Technician Required: No Beliefs That Will Affect Care: None Current Living Situation: Alone Current Living Situation Comment: From [facility] Feels Safe at Home: Yes Assistive Devices: Walker Review of Systems Review of Systems: All systems reviewed & are unremarkable except as noted in HPI & below Physical Exam Constitutional: WD/WN, vitals as above Eyes: PERRL, conjunctivae normal, anicteric sclerae ENMT: external ear and nose normal, oropharynx normal Neck: trachea midline, no thyromegaly Respiratory: normal respiratory effort, lungs clear to auscultation Cardiovascular: RRR, no murmur, no edema Gastrointestinal (Abdomen): normal bowel sounds, soft, nontender, no hepatosplenomegaly Musculoskeletal: no cyanosis or clubbing, extremities motor strength 5/5 Skin: no rashes, warm and dry Neurologic: PERRL, EOMI, accommodation nl, no face palsy, no dysarthria (RLS on exam) Psychiatric: A+Ox3, euthymic affect Lymphatic: no cervical or axillary lymphadenopathy Results & Data Results & Data Vital Signs (Past 12 Hours) Vital Signs Temp Pulse Pulse Resp BP BP Pulse Ox 07/27/24 09:07 81 07/27/24 09:00 36.5 C 80 20 130/84 94 07/27/24 07:18 36.5 C 84 20 153/100 H 94 07/27/24 06:12 85 18 166/82 H 97 07/27/24 04:37 74 22 133/70 97 07/27/24 04:18 84 07/27/24 04:08 36.8 C 81 22 162/104 H 97 O2 Del Method O2 Flow Rate 07/27/24 09:07 07/27/24 09:00 Nasal Cannula 2 07/27/24 07:18 Room Air 07/27/24 06:12 Room Air 07/27/24 04:37 Room Air 07/27/24 04:18 11/05/24 04:08 Diagnostic Findings Laboratory Results WBC 8.26 K/ul (4.8-10.8) 07/27/24 04:37 RBC 3.74 M/uL (4.20-5.40) L 07/27/24 04:37 Hgb 12.8 g/dl (12.0-16.0) 07/27/24 04:37 Hct 39.1 % (37.0-47.0) 07/27/24 04:37 MCV 104.5 fL (80.0-100.0) H 07/27/24 04:37 MCH 34.2 pg (25.0-34.0) H 07/27/24 04:37 MCHC 32.7 g/dL (32.0-36.0) 07/27/24 04:37 RDW Std Deviation 56.0 fL (36.4-46.3) H 07/27/24 04:37 RDW Coeff of Alo 14.4 % (11.5-14.5) 07/27/24 04:37 Plt Count 308 K/uL (130-400) 07/27/24 04:37 MPV 8.8 fL (9.4-12.4) L 07/27/24 04:37 Immature Gran % (Auto) 0.2 % 07/27/24 04:37 Neut % (Auto) 57.9 % 07/27/24 04:37 Lymph % (Auto) 28.7 % 07/27/24 04:37 Foard % (Auto) 8.4 % 07/27/24 04:37 Eos % (Auto) 4.1 % 07/27/24 04:37 Baso % (Auto) 0.7 % 07/27/24 04:37 Neut # (Auto) 4.78 K/uL (1.40-6.50) 07/27/24 04:37 Lymph # (Auto) 2.37 K/uL (1.20-3.40) 07/27/24 04:37 Foard # (Auto) 0.69 K/uL (0.11-0.59) H 07/27/24 04:37 Eos # (Auto) 0.34 K/uL (0.00-0.50) 07/27/24 04:37 Baso # (Auto) 0.06 K/uL (0.00-0.20) 07/27/24 04:37 Immature Gran # (Auto) 0.02 K/uL (0.01-0.20) 07/27/24 04:37 Sodium 137 mmol/L (136-145) 07/27/24 04:37 Potassium 3.8 mmol/L (3.5-5.1) 07/27/24 04:37 Chloride 105 mmol/L (98-107) 07/27/24 04:37 Carbon Dioxide 22 mmol/L (21-32) 07/27/24 04:37 Anion Gap 10 (3-11) 07/27/24 04:37 BUN 41 mg/dl (6-23) H 07/27/24 04:37 Creatinine 0.87 mg/dl (0.6-1.2) 07/27/24 04:37 Est Cr Clr Drug Dosing Not Reportable 07/27/24 04:37 eGFR 70.74 07/27/24 04:37 BUN/Creatinine Ratio 47.1 (10-20) H 07/27/24 04:37 Glucose 99 mg/dl (70-99(Fasting)) 07/27/24 04:37 Calcium 9.8 mg/dl (8.6-10.3) 07/27/24 04:37 Total Bilirubin 0.4 mg/dl (0.2-1.0) 07/27/24 04:37 AST 18 U/L (13-39) 07/27/24 04:37 ALT 15 U/L (7-52) 07/27/24 04:37 Alkaline Phosphatase 90 U/L (34-104) 07/27/24 04:37 Total Protein 7.3 gm/dl (6.0-8.3) 07/27/24 04:37 Albumin 4.3 gm/dl (3.4-5.0) 07/27/24 04:37 Globulin 3.0 gm/dl (2.5-4.0) 07/27/24 04:37 Albumin/Globulin Ratio 1.4 (0.9-2) 07/27/24 04:37 Supervising Physician Co-Signing Physician Notes 73-year-old lady with PMH of insomnia, RLS, anxiety, PTSD, HTN, myopathy, hypothyroidism, depression, SIADH, GERD, polymyositis presented to the ED with concern of worsening RLS. Patient reports she has not been able to take her Mirapex over the last few days [employer] due to not having refill available. Also she reports she has been not taking her Ativan because she accidentally discarded her Ativan bottle in trash. She reports her anxiety has been worsening. She also reports she has shortness of breath with activity since February, she has been following with lung doctor as an outpatient. Patient denies any cough or fever. Labs reviewed, fairly WNL. Will get CXR and echo. Will get nocturnal pulse oximetry, also likely will need two-step test prior to discharge. Pt reports failing sleep study as OP as she couldn't fall sleep for the study. Continue other home medication, PT/OT, CM to assist with DC planning. On exam: GENERAL: Alert and oriented x3. NAD, on RA. HEENT: No pallor, no icterus. Pupils equal, round and reactive to light. Oral mucosa moist. NECK: No JVD, no neck masses. HEART: S1 and S2 heard. Regular rate and rhythm. No murmur, no gallop. RESPIRATORY SYSTEM: Normal AP diameter. No accessory muscle use. No wheezing, no crackles. ABDOMEN: Soft, bowel sounds present, nontender, no distention. CENTRAL NERVOUS SYSTEM: No facial droop. Speech is clear. Obeys simple commands. Moves extremities. EXTREMITIES: No edema, no erythema seen. restless legs noted. I have seen and examined the patient and have discussed the case with the provider above. I agree with the assessment and plan as stated. time spent: 35 min. (7) HTN (hypertension) Hypertension type: unspecified secondary hypertension Qualified Code(s): I15.9 - Secondary hypertension, unspecified
--- OUTSIDE RECORDS SUMMARY | 2024-07-27 11:18 | External Medical Summary ---
Author Name Unknown Address Unknown Organization [id number] [address] [place] [address] Laboratory Report Ordering Provider Test Date Status DELMAR DIXON 07/26/2024 08:31:00 Final Observation Date Value Abnormality Reference (Units ) Status BUN 07/26/2024 08:31:00 27 Above high normal 6-20 (mg/dL) Final Creatinine 07/26/2024 08:31:00 0.6 0.5-1.0 (mg/dL) Final Glomerular filtration rate/1.73 sq M.predicted [Volume Rate/Area] in Serum, Plasma or Blood by Creatinine-based formula (CKD-EPI) 07/26/2024 08:31:00 >90 >=60 (mL/min) Final eGFR is calculated based on the CKD-EPI 2020 equation. Sodium 07/26/2024 08:31:00 137 135-146 (m mol/L) Final Potassium 07/26/2024 08:31:00 4.5 3.5-5.1 (m mol/L) Final Cl 07/26/2024 08:31:00 101 98-107 (mm ol/L) Final CO2 07/26/2024 08:31:00 25 22-32 (mmo l/L) Final Anion gap 07/26/2024 08:31:00 11 7-15 (mmol /L) Final Glucose 07/26/2024 08:31:00 98 70-120 (mg /dL) Final Calcium 07/26/2024 08:31:00 9.6 8.4-10.2 ( mg/dL) Final Performing Location [facility] [address] [place] [id number]
--- OUTSIDE RECORDS SUMMARY | 2024-07-27 11:18 | External Medical Summary | Summary of Care ---
Author Name Unknown Organization [facility] Address [address] [place] [address] Phone [phone] Care Team Providers Care Prenatal Teacher Name Role Phone Deedee Destinyhallie Stanford DO Primary Care Provider Reason for Visit * Reason Onset Date Comments Medication Refill 07/22/2024 Encounter Details Date Type Department Care Team (Late st Contact Info) Description 07/22/2024 Refill [facility] [address] [place] [address] Em Baxter PA-C [address], [place] [phone] Vertigo Allergies Active Allergy Reactions Criticality Noted Date Comments Diphenhydramine 06/12/2023 HALLUCINATIONS. Gabapentin 10/10/2022 Retained fluid Lisinopril Cough 08/09/2019 Pregabalin Other (Please comment) 02/14/2023 Hot all over " I felt like I was on fire inside and out" Morphine Sulfate 07/19/2010 Lowers her blood pressure documented as of this encounter (statuses as of 07/23/2024) Medications Medication Sig Dispensed Refills Start Date [...] the morning.. 30 Tablet 1 3 Active Lysine 500 MG Oral Tablet Take by mouth. Active Cyproheptadine HCl 4 MG Oral Tablet (Periactin)Indicatio ns:in evening 1 tablet daily 90 Tablet 5 3 Active Levothyroxine Sodium 88 MCG Oral Tablet (Levoxyl)Indications :Hypothyroidism TAKE 1 TABLET BY MOUTH EVERY MORNING ON AN EMPTY STOMACH 90 Tablet 3 3 Active Meclizine HCl 12.5 MG Oral Tablet (Antivert)Indication s:Vertigo TAKE 1 TABLET BY MOUTH THREE TIMES A DAY NEEDED FOR DIZZINESS 45 Tablet 1 4 Active azaTHIOprine 50 MG Oral Tablet (Imuran) Take 2 Tablets by mouth in the morning. 180 Tablet 2 4 Active Ferrous Sulfate 325 (65 Fe) MG Oral Tablet (Feosol) ONE PILL EVERY OTHER DAY 45 Tablet 1 4 Active valACYclovir HCl 500 MG Oral Tablet (Valtrex)Indications :Oral ulcer TAKE 1 TABLET BY MOUTH IN THE MORNING. FOR TRANSMISSION REDUCTION. 90 Tablet 1 4 Active busPIRone HCl 10 MG Oral Tablet (Buspar)Indications: Anxiety state,Adjustment disorder with depressed mood TAKE 1 TABLET BY MOUTH IN THE MORNING, AT NOON, AND BEFORE BEDTIME 20 Tablet 4 Active Omeprazole 20 MG Oral Capsule Delayed Release (PriLOSEC)Indication s:Gastroesophageal reflux disease without esophagitis TAKE 1 CAPSULE IN THE MORNING AND 1 CAPSULE BEFORE BEDTIME (DOSE INCREASE) 180 Capsule 1 4 Active Atenolol 25 MG Oral Tablet (Tenormin)Indication s:HTN, goal below 140/90 TAKE 1 TABLET IN THE MOring and in the evening 180 Tablet 1 4 Active Nystatin 779469 UNIT/GM External Powder (Nystop)Indications: Damari rash of groin Apply topically to affected area 3 times a day. Apply to under breast, stomach, between legs 15 g 3 4 Active Folic Acid 1 MG Oral Tablet TAKE 1 TABLET BY MOUTH EVERY DAY IN THE MORNING 90 Tablet 1 4 Active Rosuvastatin Calcium 10 MG Oral Tablet (Crestor)Indications :Hyperlipidemia Take 1 Tablet by mouth in the morning. 90 Tablet 3 4 Active tiZANidine HCl 2 MG Oral Tablet (Zanaflex) Take 1-2 tablets by mouth at night as needed for pain or muscle spasm and tightness 180 Tablet 3 4 Active DULoxetine HCl 30 MG Oral Capsule Delayed Release Particles (Cymbalta) Take 1 Capsule by mouth in the morning. 90 Capsule 3 4 Active DULoxetine HCl 60 MG Oral Capsule Delayed Release Particles (Cymbalta) Take 1 Capsule by mouth in the morning. 90 Capsule 2 4 Active LORazepam 0.5 MG Oral Tablet (Ativan)Indications: Anxiety Take 1 Tablet by mouth at bedtime as needed for Insomnia. 30 Tablet 4 Active Losartan Potassium 50 MG Oral Tablet (Cozaar)Indications: HTN, goal below 140/90 Take 1 Tablet by mouth in the morning. 4 Active Furosemide 20 MG Oral Tablet (Lasix)Indications:H yponatremia Take 2 Tablets by mouth daily AND 1 Tablet every afternoon. 4 Active Loratadine 10 MG Oral Tablet (Claritin)Indication s:Other chronic sinusitis TAKE 1 TABLET BY MOUTH EVERY DAY IN THE MORNING 90 Tablet 1 4 Active Diclofenac Sodium 1 % External Gel (Voltaren) APPLY TO AFFECTED AREA 4 TIMES A DAY 100 g 1 4 Active Ondansetron HCl 4 MG Oral Tablet (Zofran)Indications: Nausea Take 1 Tablet by mouth every 6 hours as needed for Nausea. 60 Tablet 1 4 Active Meclizine HCl 12.5 MG Oral Tablet (Antivert) Take 1 Tablet by mouth 3 times a day as needed for Dizziness. 45 Tablet 1 4 Active Pramipexole Dihydrochloride 0.25 MG Oral Tablet (Mirapex)Indications :Restless legs syndrome TAKE 1 TABLET BY MOUTH IN THE MORNING, 1 AT NOON AND 1 BEFORE BEDTIME 270 Tablet 1 4 07/22/20 24 Discontinu ed(Refill) documented as of this encounter (statuses as of 07/23/2024) Active Problems Problem Noted Date Diagnosed Date [...] as of this encounter (statuses as of 07/23/2024) Resolved Problems Problem Noted Date Diagnosed Date [...] as of this encounter (statuses as of 07/23/2024) Immunizations Name Administration Dates Next Due COVID-19 mRNA, LNP-s, No Pre serve, 2-Dose Series (Moderna) 06/12/2021,11/23/2020,10/26/2020 DTWP - Dipth/Tet/Whole Cell Pertussis 06/22/2007 Pneumococcal Conjugate Vacc, 13 Valent (Prevnar) 06/23/2015 Pneumococcal Polysaccharide PPV23 (Pneumovax) 10/04/2016 Season Influenza, Quad, PF, Adjuvanted, 65+ Yrs, IM (FLUAD) 07/18/2020 Seasonal Influenza Vac., MDV , IM, 0.5 mL (Fluzone) 05/26/2014,06/15/2013,07/01/2012,07/17,08/09/2010,08/26/2009,08/31/2008 Seasonal Influenza Virus Vac cine, Unspecified Formulation 05/23/2022,06/12/2021,07/18/2020,06/29,07/24/2018,05/31/2017,06/28/2016 ,05/26/2014,06/15/2013,07/01/2012,06/23,08/09/2010,08/26/2009, 8 Seasonal Influenza, High Dos e, Trivalent, PF, IM (Fluzone HD) 05/31/2024,05/31/2017 Seasonal Influenza, PF, 6 M & above, IM , (FluLaval or Fluzone) 07/24/2018 Seasonal Influenza, Quadriva lent Hd (Fluzone Hd) 06/23/2023,05/23/2022,06/12/2021 Seasonal Influenza, Quadriva lent, No Preserve, IM 06/28/2016,06/23/2015 Seasonal Influenza, Trivalen t, Adjuvanted, 65+ YRS, PF, (Fluad) 06/29/2019 TDAP (age 10 and older)(Boostrix) 08/09/2019 Zoster Vaccine Recombinant (Shingrix) 11/06/2021 ,08/02/2021 documented as of this encounter Social History Tobacco Use Types Packs/Day Years Used Date Smoking Tobacco: Never Passive Smoke Exposure: Past Smokeless Tobacco: Never Alcohol Use Standard Drinks/Week Comments Not Currently 0 (1 standard drink = 0.6 oz pur e alcohol) seldom PHQ-2 Answer Date Recorded PHQ Adult Total Score 0 05/31/2024 Hunger Vital Sign Answer Date Recorded Within the past 12 months, y ou worried that your food would run out before you got the money to buy more. Never true Within the past 12 months, t he food you bought just didn't last and you didn't have money to get more. Sometimes true Utilities Answer Date Recorded Do you have trouble paying y our heating, water, or electric bill? (Adult - for ages 18 years and over) Not on file 03/09/2024 Is your family able to pay t he heat, water, or electric bill? (Household - for ages 0-17 years) Not on file 03/09/2024 Does your family have access to good internet? (Household - for ages 0-17 years) Not on file 03/09/2024 Social Connections Answer Date Recorded How often do you feel lonely or isolated from those around you? (Adult - for ages 18 years and over) Not on file 03/09/2024 Sex and Gender Information Value Date Recorded Sex Assigned at Female 05/03/2019 2:11 PM EDT Gender Identity Female 05/03/2019 2:11 PM EDT Sexual Orientation Straight 03/06/2023 8: 56 AM EDT Job Start Date Occupation Industry Not on file Not on file Not on file documented as of this encounter Miscellaneous Notes * Telephone Encounter - Destiny Mark DO - 07/23/2024 1:13 PM EDTSigned Prescriptions: Disp Refills Meclizine HCl 12.5 MG Oral Tablet (Antiver*45 Tab*1 Sig: Take 1 Tablet by mouth 3 times a day as needed for Dizziness. Authorizing Provider: DESTINY MARK Refused Prescriptions: Disp Refills Meclizine HCl 12.5 MG Oral Tablet (Antiver*45 Tab*1 Sig: TAKE 1 TABLET BY MOUTH THREE TIMES A DAY NEEDED FOR DIZZINESS Refused By: ALYCIA JAMA Reason for Refusal: Duplicate Request * [facility] 8:35 AM EDT Pending Prescriptions: Disp Refills Meclizine HCl 12.5 MG Oral Tablet (Antiver*45 Tab*1 Sig: Take 1 Tablet by mouth 3 times a day as needed for Dizziness. Refused Prescriptions: Disp Refills Meclizine HCl 12.5 MG Oral Tablet (Antiver*45 Tab*1 Sig: TAKE 1 TABLET BY MOUTH THREE TIMES A DAY NEEDED FOR DIZZINESS Refused By: ALYCIA JAMA Reason for Refusal: Duplicate Request * Telephone Encounter - Alycia Jama RPh - 07/23/2024 8:34 AM EDT Unable to authorize medication refills for pended medication(s) at this time. Part of the protocol criteria used for refill authorization was not satisfied: Designations for the "Planned Duration" and "Indication" questions have not been selected. Meclizine is typically intended for acute use as a PRN medication and not for long-term routine use, and thepatient has been taking meclizine for more than 3 months. Please consider referral to one of the following: Otolaryngology if there are associated aural complaints (hearing loss, tinnitus) associated with the dizziness or if the dizziness evolves spontaneously. Neurology if the dizziness is associated with migraine headache, diplopia, limb incoordination, weakness, dysarthria, dysphagia or inability to ambulate/highly frequent falls. Vestibular physical therapist if the dizziness is primarily related to position changes or head movement (BPPV). Thank you, Alycia Jama, PharmD. Clinical Pharmacist [facility] 07/23/2024, 8:34 AM documented in this encounter Plan of Treatment Upcoming Encounters Date Type Department Care Team (Late st Contact Info) Description 07/26/2024 2:45 PM EST Laboratory Lab [facility] [address] [facility] [place] [address] [facility], [facility] Draw [address] [facility] [place] [address] 08/02/2024 2:45 PM EST Laboratory Lab [facility] [address] [facility] [place] [address] [facility], [facility] Draw [address] [facility] [place] [place] [address] 08/04/2024 10:30 AM EST Telemedicine Pharmacy, [facility] [address] [facility] [place] [address] [facility] [address] [facility] [place] [address] 08/09/2024 2:45 PM EST Laboratory Lab [facility] Phlebotomy [facility] [address] [facility] [place] [address] M[facility], Gml Mobile Home Draw [facility] [facility] [place] [address] 08/25/2024 1:00 PM EST Office Visit Interventional Pain Center, [facility] [address] [place] [address] Alfreda Delong PA-C [address] [place] [address] 09/28/2024 3:00 PM EST Office Visit Interventional Pain Center, [facility] [address] [place] [address] Natan Collins DO [address] [place] [id number] 09/29/2024 2:00 PM EST Office Visit Rheumatology [place] [address] [facility] [place] [address] Lance Castanon CRNP [address] [place] [address] 12/27/2024 2:40 PM EDT Office Visit Nephrology, [facility] [address] [facility] [place] [address] Brigido Francis MD [address] [facility] [place] [address] 12/28/2024 3:00 PM EDT Office Visit Pulmonary Medicine, [facility] [address] [place] [address] Bryant Dawson MD [address] [place] [address] Scheduled Procedures Name Priority Associated Diagnoses Date/Ti me COLONOSCOPY FLEXIBLE PROXIMAL DIAGNOSTIC Recall History of colon polyps Health Maintenance Due Date Last Done Comments Cologuard 1996 Fecal Occult Blood Test 1996 Sigmoidoscopy 1996 Adult Wellness Visit 05/03/2020 05/03/2019 Mammogram 04/18/2024 04/18/2023, 03/23, 04/15/2022, Additional history exists COVID-19 Vaccine ( season) 2024 08/28/2023, 06/12/2021, 11/23/2020, Additional history exists DXA Scan 10/28/2024 10/28/2017, 09/2009, 10/23/2009 TSH 05/14/2025 05/14/2024, 11/2023, 06/23/2023, Additional history exists Depression Monitoring 05/31/2025 05/31/2024 GFR 07/19/2025 07/19/2024, 06/23, 07/05/2024, Additional history exists Albumin/Creatinine Ratio 06/23/2026 023, 05/23/2022, 07/01/2012, Additional history exists Colonoscopy 10/03/2026 10/03/2021, 09/22, 02/17/2018, Additional history exists Colorectal Cancer Screening 10/03/2026 Lipid Panel 12/23/2028 12/24/2023, 09/0 09/2021, 04/12/2021, Additional history exists DTap/Tdap Vaccines (3 - Td or Tdap) 08/09/2029 08/09/2019, 06/22/2007 RETIRED - COLONOSCOPY-EVERY 5 YRS AGES 18-100 Discontinued 10/03/2021, 10/03/2021, 02/17/2018, Additional history exists Zoster Vaccines Completed 11/06/2021, 08/02/2021 Pneumococcal Vaccine: 65+ Years Completed 09/01/2023, 10/04/2016, 06/23/2015 Influenza Vaccine (FLU shot) Completed 05/31/2024, 06/23/2023, 05/23/2022, Additional history exists HPV (Gardasil) Vaccine Aged Out No lo nger eligible based on patient's age to complete this topic Hepatitis B Vaccine Aged Out No longe r eligible based on patient's age to complete this topic MENINGOCOCCAL (MENACTRA/MENVEO) Aged Out No longer eligible based on patient's age to complete this topic documented as of this encounter Medical Devices Not on filedocumented as of this encounter Visit Diagnoses Diagnosis Vertigo Dizziness and giddiness documented in this encounter Advance Directives Documents on File Type Date Recorded Patient Change Number Operator Expl anation Power of Solar System Installer 08/28/2016 POWER OF A TTORNEY POWER OF ROADING ENGINEER INFO Care Teams Prenatal Teacher Relationship Specialty Start Date End Date Destiny Mark DO [address] [facility] [address] PCP - General Family Medicine 12/20/22 documented as of this encounter
--- OUTSIDE RECORDS SUMMARY | 2024-07-27 11:18 | External Medical Summary | Summary of Care ---
Author Name Unknown Organization [facility] Address [address] [place] [address] Phone [phone] Care Team Providers Care Marketing Communications Leader Name Role Phone Deedee Destinyhallie Stanford DO Primary Care Provider [phone] Reason for Visit * Reason Onset Date Comments Medication Refill 07/22/2024 Encounter Details Date Type Department Care Team (Late st Contact Info) Description 07/22/2024 Refill [facility] [address] [place] [address] Em Baxter PA-C [address], [place] [phone] Vertigo Allergies Active Allergy Reactions Criticality Noted [...] EMPTY STOMACH 90 Tablet 3 3 Active azaTHIOprine 50 MG Oral Tablet (Imuran) [...] evening 180 Tablet 1 4 Active Nystatin 449775 UNIT/GM External Powder (Nystop)Indications: Damari rash of [...] for Dizziness. 45 Tablet 1 4 Active Meclizine HCl 12.5 MG Oral Tablet (Antivert)Indication s:Vertigo TAKE 1 TABLET BY MOUTH THREE TIMES A DAY NEEDED FOR DIZZINESS 45 Tablet 1 4 07/23/20 24 Discontinu ed(Medicat ion List Clean Up) Pramipexole Dihydrochloride 0.25 MG Oral Tablet (Mirapex)Indications [...] as of this encounter Miscellaneous Notes * Addendum Note - Alycia Jama RP - 07/23/2024 1:55 PM EDTAddended by: ALYCIA JAMA on: 07/23/2024 01:55 PM Modules accepted: Orders * Telephone Encounter - Destiny Mark DO [...] Request * Telephone Encounter - Alycia Jama [facility] - 07/23/2024 8:35 AM EDT Pending Prescriptions: [...] Request * Telephone Encounter - Alycia Jama [facility] - 07/23/2024 8:34 AM EDT Unable to [...] EST Laboratory Lab [facility] [address] [place] [address] [facility], [facility] Draw [address] [place] [address] 08/02/2024 2:45 PM EST Laboratory Lab [facility]lebot[facility] [address] [place] [address] [facility], [facility] Home Draw [address] [place] [address] 08/04/2024 10:30 AM EST Telemedicine Pharmacy, [facility] [address] [place] [address] [facility] [address] [facility] [place] [address] 08/09/2024 2:45 PM EST Laboratory Lab [facility] Phlebotomy [facility] [address] [place] [address] [address] [facility], [facility] Draw [address] [facility] [place] [address] 08/25/2024 1:00 PM EST Office Visit Interventional Pain Center, [facility] [address] [place] [address] Alfreda Delong PA-C [address] [place] [address] 09/28/2024 3:00 PM EST Office Visit Interventional Pain Center, [facility] [address] [facility] [place] [address] Natan Collins, [address] [place] [address] 09/29/2024 2:00 PM EST Office Visit Rheumatology [facility] [address] [place] [address] Lance Castanon CRNP [address] [place] [address] 12/27/2024 2:40 PM EDT Office Visit Nephrology, [facility] [address] [facility] [place] [address] Brigido Francis MD [address] [place] [address] 12/28/2024 3:00 PM EDT Office Visit Pulmonary Medicine, [facility] [address] [facility] [place] [address] Bryant Dawson MD [address] [place] [address] Scheduled Procedures Name Priority Associated Diagnoses Date/Ti [...] Documents on File Type Date Recorded Patient Letter Stamping Machine Operator Expl anation Power of Verification Specialist 08/28/2016 POWER OF A TTORNEY POWER OF CHARGE WEIGHER INFO Care Teams Marketing Communications Leader Relationship Specialty Start Date End Date Destiny Mark DO [address], [place] [phone] PCP - General Family Medicine 12/20/22 documented as of this encounter
--- OUTSIDE RECORDS SUMMARY | 2024-07-27 11:19 | External Medical Summary | Summary of Care ---
Author Name Unknown Organization [facility] Address [address] [place] [address] Phone [phone] Care Team Providers Care Manager Oracle Database Name Role Phone Destiny Mark DO Primary Care Provider Reason for Visit * Reason Onset Date Comments Test Results 06/28/2024 Encounter Details Date Type Department Care Team (Late st Contact Info) Description 06/28/2024 Telephone [facility] [address] [place] [address] Destiny Mark DO [address] [place] [address] Test Results Allergies Active Allergy Reactions Criticality Noted Date Comments Diphenhydramine 06/12/2023 HALLUCINATIONS. Gabapentin 10/10/2022 Retained fluid Lisinopril Cough 08/09/2019 Pregabalin Other (Please comment) 02/14/2023 Hot all over " I felt like I was on fire inside and out" Morphine Sulfate 07/19/2010 Lowers her blood pressure documented as of this encounter (statuses as of 07/05/2024) Medications Medication Sig Dispensed Refills Start Date [...] FOR DIZZINESS 45 Tablet 1 4 Active Pramipexole Dihydrochloride [...] 4 Active Atenolol 25 MG Oral Tablet (Tenormin)Indicatio ns:HTN, goal below 140/90 TAKE 1 TABLET IN THE MOring and in the evening 180 Tablet 1 4 Active Nystatin 382712 UNIT/GM External Powder (Nystop)Indications :Damari rash of groin Apply topically to affected area 3 times a day. Apply to under breast, stomach, between legs 15 g 3 4 Active Folic Acid 1 MG Oral Tablet TAKE 1 TABLET BY MOUTH EVERY DAY IN THE MORNING 90 Tablet 1 4 Active Rosuvastatin Calcium 10 MG Oral Tablet (Crestor)Indication s:Hyperlipidemia Take 1 Tablet by mouth in the [...] the morning. 90 Capsule 2 4 Active Ondansetron HCl 4 MG Oral Tablet (Zofran)Indications :Nausea Take 1 Tablet by mouth every 6 hours as needed for Nausea. 60 Tablet 1 4 Active LORazepam 0.5 MG Oral Tablet (Ativan)Indications :Anxiety Take 1 Tablet by mouth at bedtime as needed for Insomnia. 30 Tablet 4 Active Losartan Potassium 50 MG Oral Tablet (Cozaar)Indications :HTN, goal below 140/90 Take 1 Tablet by mouth in the morning. 4 Active Furosemide 20 MG Oral Tablet (Lasix)Indications: Hyponatremia Take 2 Tablets by mouth daily AND 1 Tablet every afternoon. 4 Active Loratadine 10 MG Oral Tablet (Claritin)Indicatio ns:Other chronic sinusitis TAKE 1 TABLET BY MOUTH EVERY DAY IN THE MORNING 90 Tablet 1 4 Active Diclofenac Sodium 1 % External Gel (Voltaren) APPLY TO AFFECTED AREA 4 TIMES A DAY 100 g 1 4 024 Discontinued documented as of this encounter (statuses as of 07/05/2024) Active Problems Problem Noted Date Diagnosed Date [...] as of this encounter (statuses as of 07/05/2024) Resolved Problems Problem Noted Date Diagnosed Date [...] as of this encounter (statuses as of 07/05/2024) Immunizations Name Administration Dates Next Due COVID-19 [...] encounter Miscellaneous Notes * Addendum Note - Beverley Gusman LPN - 07/05/2024 4:16 PM EDTAddended by: BEVERLEY GUSMAN on: 07/05/2024 04:16 PM Modules accepted: Orders * Telephone Encounter - Beverley Gusman LPN - 07/05/2024 4:16 PM EDT Pt had labs done today - TSH can be added on if you would like - pended for add on * Addendum Note - Destiny Mark DO - 07/05/2024 1:34 PM EDTAddended by: DESTINY MARK on: 07/05/2024 01:34 PM Modules accepted: Orders * Telephone Encounter - Destiny Mark DO - 07/05/2024 1:33 PM EDT Ordered a tsh to be done. Can you let home health now there is an order in for this * Telephone Encounter - Jocelyne Castillo LPN - 07/05/2024 12:41 PM EDT Pt is returning phone call. Reports that she feels like her entire body is vibrating at times (last occurred yesterday and lasted the entire day) and she still has a lot of fatigue. Would like to know if the vibrating could be from her neuropathy? Is also asking if it is normal to still feel fatigued/have no stamina s/p fracturing her legs? Is participating in PT and exercise classes 3 times a week. Please advise. * Telephone Encounter - Natalie Trammell LPN - 07/05/2024 11:56 AM EDT Patient(s) returned call. Informed of message. Verbalized understanding. * Telephone Encounter - Bere Tamez LPN - 07/05/2024 11:43 AM EDT Attempted to call patient, there was no answer, left voicemail. When patient returns call, ok for OLA[facility] to relay message, please refer to below documentation. If needed, can transfer to dedicated nurse line. * Telephone Encounter - Destiny Mark DO - 06/28/2024 1:37 PM EDT Repeat sodium normal. documented in this encounter Plan of Treatment Upcoming Encounters Date Type Department Care Team (Late st Contact Info) Description 07/12/2024 2:45 PM EDT Laboratory Lab Mobile [facility] [address] [place] [address] Mvmg, Gml Mobile Home Draw [address] [place] [address] 07/19/2024 2:45 PM EDT Laboratory Lab [facility]bot[facility] [address] [place] [address] Mvmg, Gml Mobile Home Draw [address] [place] [address] 07/26/2024 2:45 PM EST Laboratory Lab [facility]bot[facility] [address] [place] [address] Mvmg, Gml Mobile Home Draw [address] [place] [address] 08/02/2024 2:45 PM EST Laboratory [facility] [address] [place] [address] Mvmg, Gml Mobile Home Draw [address] [place] [address] 08/04/2024 10:30 AM EST Telemedicine Pharmacy, [facility] [address] [facility] [place] [address] [facility] [address] [facility] [address] 08/09/2024 2:45 PM EST Laboratory Lab Mobile Phlebotomy [facility] [address] [place] [address] Mvmg, Gml Mobile Home Draw [address] [place] [address] 08/25/2024 3:30 PM EST Office Visit Interventional [facility] Center, [facility] [address] [facility] [place] [address] Alfreda Delong PA-C [address] [place] [address] 09/28/2024 3:00 PM EST Office Visit Interventional Pain Center, [facility] [address] [place] [address] Karina Natan Kuo, [address] [place] [address] 09/29/2024 2:00 PM EST Office Visit Rheumatology [facility] [address] [place] [address] Lance Castanon CRNP [address] [place] [address] 12/27/2024 2:40 PM EDT Office Visit Nephrology, [facility] [address] [facility] [place] [address] Brigido Francis MD [address] [place] [address] Scheduled Orders Name Type Priority Associated Diagnoses Orde r Schedule TSH WITH FREE T4 IF INDICATED Lab Routine Acquired hypothyroidism Expected: 07/06/2024, Expires: 11/26/2024 Scheduled Procedures Name Priority Associated Diagnoses Date/Ti [...] history exists Depression Monitoring 05/31/2025 05/31/2024 GFR 07/05/2025 07/05/2024, 03/2024, 06/21/2024, Additional history exists Albumin/Creatinine Ratio 06/23/2026 023, [...] as of this encounter Visit Diagnoses Diagnosis Acquired hypothyroidism- Primary Unspecified hypothyroidism documented in this encounter Advance Directives Documents on File Type Date Recorded Patient Audiovisual Technician Expl anation Power of Furniture Delivery Driver 08/28/2016 POWER OF A TTORNEY POWER OF TECHNICAL AGRONOMIST INFO Care Teams Manager Oracle Database Relationship Specialty Start Date End Date Destiny Mark DO [address] [place] [address] PCP - General Family Medicine 12/20/22 documented as of this encounter
--- OUTSIDE RECORDS SUMMARY | 2024-07-27 11:19 | External Medical Summary ---
Author Name Unknown Address Unknown Organization [facility] [address] [place] [address] Laboratory Report Ordering Provider Test Date Status DELMAR DIXON 07/12/2024 11:15:00 Final Observation Date Value Abnormality Reference (Units ) Status BUN 07/12/2024 11:15:00 29 Above high normal 6-20 (mg/dL) Final Creatinine 07/12/2024 11:15:00 0.6 0.5-1.0 (mg/dL) Final Glomerular filtration rate/1.73 sq M.predicted [Volume Rate/Area] in Serum, Plasma or Blood by Creatinine-based formula (CKD-EPI) 07/12/2024 11:15:00 >90 >=60 (mL/min) Final eGFR is calculated based on the CKD-EPI 2020 equation. Sodium 07/12/2024 11:15:00 139 135-146 (m mol/L) Final Potassium 07/12/2024 11:15:00 4.4 3.5-5.1 (m mol/L) Final Cl 07/12/2024 11:15:00 103 98-107 (mm ol/L) Final CO2 07/12/2024 11:15:00 24 22-32 (mmo l/L) Final Anion gap 07/12/2024 11:15:00 12 7-15 (mmol /L) Final Glucose 07/12/2024 11:15:00 87 70-120 (mg /dL) Final Calcium 07/12/2024 11:15:00 9.6 8.4-10.2 ( mg/dL) Final [facility] [place] [address]
--- OUTSIDE RECORDS SUMMARY | 2024-07-27 11:19 | External Medical Summary ---
Author Name Unknown Address Unknown Organization [facility] [address] [place] [address] Laboratory Report Ordering Provider Test Date Status DELMAR DIXON 07/19/2024 08:35:00 Final Observation Date Value Abnormality Reference (Units ) Status BUN 07/19/2024 08:35:00 20 6-20 (mg/dL) Final Creatinine 07/19/2024 08:35:00 0.5 0.5-1.0 (mg/dL) Final Glomerular filtration rate/1.73 sq M.predicted [Volume Rate/Area] in Serum, Plasma or Blood by Creatinine-based formula (CKD-EPI) 07/19/2024 08:35:00 >90 >=60 (mL/min) Final eGFR is calculated based on the CKD-EPI 2020 equation. Sodium 07/19/2024 08:35:00 143 135-146 (m mol/L) Final Potassium 07/19/2024 08:35:00 4.5 3.5-5.1 (m mol/L) Final Cl 07/19/2024 08:35:00 106 98-107 (mm ol/L) Final CO2 07/19/2024 08:35:00 26 22-32 (mmo l/L) Final Anion gap 07/19/2024 08:35:00 11 7-15 (mmol /L) Final Glucose 07/19/2024 08:35:00 115 70-120 (mg /dL) Final Calcium 07/19/2024 08:35:00 9.4 8.4-10.2 ( mg/dL) Final Performing [facility] [place] [address]
--- OUTSIDE RECORDS SUMMARY | 2024-07-27 11:19 | External Medical Summary | Summary of Care ---
Author Name Unknown Organization [facility] Address [address] [place] [address] Phone [phone] Care Team Providers Care Linter Saw Sharpener Name Role Phone Uma Mark DO Primary Care Provider Reason for Visit * Reason Onset Date Comments Forms Request 07/14/2024 [facility] Encounter Details Date Type Department Care Team (Late st Contact Info) Description 07/14/2024 Telephone [facility] [address] [place] [address] Uma Mark DO [address] [place] [address] Forms Request ([facility]) Allergies Active Allergy Reactions Criticality Noted Date Comments Diphenhydramine 06/12/2023 HALLUCINATIONS. Gabapentin 10/10/2022 Retained fluid Lisinopril Cough 08/09/2019 Pregabalin Other (Please comment) 02/14/2023 Hot all over " I felt like I was on fire inside and out" Morphine Sulfate 07/19/2010 Lowers her blood pressure documented as of this encounter (statuses as of 07/14/2024) Medications Medication Sig Dispensed Refills Start Date [...] the morning.. 30 Tablet 1 02/20/2023 Active Lysine 500 MG Oral Tablet Take by mouth. Active Cyproheptadine HCl 4 MG Oral Tablet (Periactin)Indicatio ns:in evening 1 tablet daily 90 Tablet 5 07/28/2023 Active Levothyroxine Sodium 88 MCG Oral Tablet (Levoxyl)Indications :Hypothyroidism TAKE 1 TABLET BY MOUTH EVERY MORNING ON AN EMPTY STOMACH 90 Tablet 3 08/06/2023 Active Meclizine HCl 12.5 MG Oral Tablet (Antivert)Indication s:Vertigo TAKE 1 TABLET BY MOUTH THREE TIMES A DAY NEEDED FOR DIZZINESS 45 Tablet 1 12/05/2023 Active Pramipexole Dihydrochloride 0.25 MG Oral Tablet (Mirapex)Indications :Restless legs syndrome TAKE 1 TABLET BY MOUTH IN THE MORNING, 1 AT NOON AND 1 BEFORE BEDTIME 270 Tablet 1 12/31/2023 Active azaTHIOprine 50 MG Oral Tablet (Imuran) Take 2 Tablets by mouth in the morning. 180 Tablet 2 01/01/2024 Active Ferrous Sulfate 325 (65 Fe) MG Oral Tablet (Feosol) ONE PILL EVERY OTHER DAY 45 Tablet 1 02/09/2024 Active valACYclovir HCl 500 MG Oral Tablet (Valtrex)Indications :Oral ulcer TAKE 1 TABLET BY MOUTH IN THE MORNING. FOR TRANSMISSION REDUCTION. 90 Tablet 1 03/04/2024 Active busPIRone HCl 10 MG Oral Tablet (Buspar)Indications: Anxiety state,Adjustment disorder with depressed mood TAKE 1 TABLET BY MOUTH IN THE MORNING, AT NOON, AND BEFORE BEDTIME 20 Tablet 03/11/2024 Active Omeprazole 20 MG Oral Capsule Delayed Release (PriLOSEC)Indication s:Gastroesophageal reflux disease without esophagitis TAKE 1 CAPSULE IN THE MORNING AND 1 CAPSULE BEFORE BEDTIME (DOSE INCREASE) 180 Capsule 1 03/18/2024 Active Atenolol 25 MG Oral Tablet (Tenormin)Indication s:HTN, goal below 140/90 TAKE 1 TABLET IN THE MOring and in the evening 180 Tablet 1 03/22/2024 Active Nystatin 979125 UNIT/GM External Powder (Nystop)Indications: Damari rash of groin Apply topically to affected area 3 times a day. Apply to under breast, stomach, between legs 15 g 3 03/22/2024 Active Folic Acid 1 MG Oral Tablet TAKE 1 TABLET BY MOUTH EVERY DAY IN THE MORNING 90 Tablet 1 04/20/2024 Active Rosuvastatin Calcium 10 MG Oral Tablet (Crestor)Indications :Hyperlipidemia Take 1 Tablet by mouth in the morning. 90 Tablet 3 05/10/2024 Active tiZANidine HCl 2 MG Oral Tablet (Zanaflex) Take 1-2 tablets by mouth at night as needed for pain or muscle spasm and tightness 180 Tablet 3 05/10/2024 Active DULoxetine HCl 30 MG Oral Capsule Delayed Release Particles (Cymbalta) Take 1 Capsule by mouth in the morning. 90 Capsule 3 05/17/2024 Active DULoxetine HCl 60 MG Oral Capsule Delayed Release Particles (Cymbalta) Take 1 Capsule by mouth in the morning. 90 Capsule 2 05/17/2024 Active Ondansetron HCl 4 MG Oral Tablet (Zofran)Indications: Nausea Take 1 Tablet by mouth every 6 hours as needed for Nausea. 60 Tablet 1 05/31/2024 Active LORazepam 0.5 MG Oral Tablet (Ativan)Indications: Anxiety Take 1 Tablet by mouth at bedtime as needed for Insomnia. 30 Tablet 05/31/2024 Active Losartan Potassium 50 MG Oral Tablet (Cozaar)Indications: HTN, goal below 140/90 Take 1 Tablet by mouth in the morning. 06/02/2024 Active Furosemide 20 MG Oral Tablet (Lasix)Indications:H yponatremia Take 2 Tablets by mouth daily AND 1 Tablet every afternoon. 06/02/2024 Active Loratadine 10 MG Oral Tablet (Claritin)Indication s:Other chronic sinusitis TAKE 1 TABLET BY MOUTH EVERY DAY IN THE MORNING 90 Tablet 1 06/04/2024 Active Diclofenac Sodium 1 % External Gel (Voltaren) APPLY TO AFFECTED AREA 4 TIMES A DAY 100 g 1 06/28/2024 Active documented as of this encounter (statuses as of 07/14/2024) Active Problems Problem Noted Date Diagnosed Date [...] as of this encounter (statuses as of 07/14/2024) Resolved Problems Problem Noted Date Diagnosed Date [...] as of this encounter (statuses as of 07/14/2024) Immunizations Name Administration Dates Next Due COVID-19 [...] Telephone Encounter - Judi Maldonado LPN - 07/14/2024 3:14 PM EDT Received Fax for BFPROVIDERS: Dr. Uma Mark PT PLAN OF CARE/EVALUATION received from [facility] and FAXED documented in this encounter Plan of Treatment Upcoming Encounters Date Type Department Care Team (Late st Contact Info) Description 07/19/2024 2:45 PM EDT Laboratory Lab Mobile Phlebotomy [facility] [address] [place] [address] Mvmg, Gml Mobile Home Draw [address] [place] [address] 07/26/2024 2:45 PM EST Laboratory Lab [facility] Phlebot[facility] [address] [place] [address] Mvmg, Gml Mobile Home Draw [address] [place] [address] [address] 08/02/2024 2:45 PM EST Laboratory Lab Mobile Phlebotomy [facility] [address] [place] [address] Mvmg, Gml Mobile Home Draw [address] [place] [address] [address] 08/04/2024 10:30 AM EST Telemedicine Pharmacy, [facility] [address] [facility] [place] [address] [facility] [address] [facility] [place] [address] 08/09/2024 2:45 PM EST [facility] [place] [address] Mvmg, Gml Mobile Home Draw [facility] [place] [address] 08/25/2024 3:30 PM EST Office Visit Interventional Pain Center, [facility] [address] [facility] [place] [address] Alfreda Delong PA-C [address] [facility] [place] [address] 09/28/2024 3:00 PM EST Office Visit Interventional Pain Center, [facility] [address] [facility] [place] [address] Natan Collins DO [address] [place] [address] 09/29/2024 2:00 PM EST Office Visit Rheumatology [place] [id number] [facility] [place] [address] Lance Castanon CRNP [facility] [place] [address] 12/27/2024 2:40 PM EDT Office Visit Nephrology, [facility] [address] [place] [address] Brigido Francis MD [address] [place] [address] Scheduled Procedures Name Priority Associated Diagnoses Date/Ti [...] DXA Scan 10/28/2024 10/28/2017, 0 09/2009, 10/23/2009 TSH 05/14/2025 05/14/2024, 11/2023, 06/23/2023, Additional history exists Depression Monitoring 05/31/2025 05/31/2024 GFR 07/12/2025 07/12/2024, 06/22, 06/28/2024, Additional history exists Albumin/Creatinine Ratio 06/23/2026 023, 05/23/2022, 07/01/2012, Additional history exists Colonoscopy 10/03/2026 10/03/2021, 09/22, 02/17/2018, Additional history exists Colorectal Cancer Screening 10/03/2026 Lipid Panel 12/23/2028 12/24/2023, 09/2021, 04/12/2021, Additional history exists DTap/Tdap Vaccines [...] Documents on File Type Date Recorded Patient Rn Complex Care Expl anation Power of Non Licensed Nuclear Equipment Operator 08/28/2016 POWER OF A TTORNEY POWER OF DIRECTOR OF FEDERAL SALES [facility] Care Teams Linter Saw Sharpener Relationship Specialty Start Date End Date Uma Mark DO [address] [facility] [place] [address] PCP - General Family Medicine 12/20/22 documented as of this encounter
--- OUTSIDE RECORDS SUMMARY | 2024-07-27 11:19 | External Medical Summary | Summary of Care ---
Author Name Unknown Organization [facility] Address [address] [place] [address] Phone [phone] Care Team Providers Care Environmental Services Tech Name Role Phone Destiny Mark DO Primary Care Provider Reason for Visit * Reason Onset Date Comments Medication Refill 07/22/2024 Encounter Details Date Type Department Care Team (Late st Contact Info) Description 07/22/2024 Refill [facility] [address] [place] [address] Destiny Mark DO [address] [place] [address] Nausea Allergies Active Allergy Reactions Criticality Noted Date [...] evening 180 Tablet 1 4 Active Nystatin 985981 UNIT/GM External Powder (Nystop)Indications: Damari rash of [...] for Nausea. 60 Tablet 1 4 Active Ondansetron HCl 4 MG Oral Tablet (Zofran)Indications: Nausea Take 1 Tablet by mouth every 6 hours as needed for Nausea. 60 Tablet 1 4 07/22/20 24 Discontinu ed(Refill) [...] encounter Miscellaneous Notes * Telephone Encounter - Cherry Ross RPh - 07/23/2024 8:32 AM EDTSigned Prescriptions: Disp Refills Ondansetron HCl 4 MG Oral Tablet (Zofran) 60 Tab*1 Sig: Take 1 Tablet by mouth every 6 hours as needed for Nausea.Authorizing Provider: DESTINY MARK User: CHERRY ROSS documented in this encounter Plan of Treatment Upcoming Encounters Date Type Department Care Team (Late st Contact Info) Description 07/26/2024 2:45 PM EST Laboratory Lab Mobile Phlebotomy [facility] [address] [place] [address] Mvmg, Gml Mobile Home Draw [address] [place] [address] 08/02/2024 2:45 PM EST Laboratory Lab Mobile Phlebotomy [facility] [address] [facility] [place] [address] Mvmg, Gml Mobile Home Draw [address] [facility] [place] [address] 08/04/2024 10:30 AM EST Telemedicine Pharmacy, [facility] [place] [address] [facility] [address] [place] [address] 08/09/2024 2:45 PM EST Laboratory Lab Mobile Phlebotomy [facility] [address] [facility] [place] [address] Mvmg, Gml Mobile Home Draw [facility] [place] [address] 08/25/2024 1:00 PM EST Office Visit Interventional Pain Center, [facility] [address] [facility] [place] [address] Alfreda Delong PA-C [address] [facility] [place] [address] 09/28/2024 3:00 PM EST Office Visit Interventional Pain Center, [facility] [address] [facility] [place] [address] Natan Collins DO [address] [place] [address] 09/29/2024 2:00 PM EST Office Visit Rheumatology [place] [address] [facility] [place] [address] Lance Castanon CRNP [address] [facility] [place] [address] 12/27/2024 2:40 PM EDT Office Visit Nephrology, [address] [place] [address] Brigido Francis MD [address] [place] [address] Scheduled Procedures Name Priority Associated Diagnoses Date/Ti [...] 10/28/2017, 0 09/2009, 10/23/2009 TSH 05/14/2025 05/14/2024, 0 11/2023, 06/23/2023, Additional history exists Depression Monitoring 05/31/2025 05/31/2024 GFR 07/19/2025 07/19/2024, 06/23, 07/05/2024, Additional history exists Albumin/Creatinine Ratio 06/23/2026 023, 05/23/2022, 07/01/2012, Additional history exists Colonoscopy 10/03/2026 10/03/2021, 09/22, 02/17/2018, Additional history exists Colorectal Cancer Screening 10/03/2026 Lipid Panel 12/23/2028 12/24/2023, 0909/2021, 04/12/2021, Additional history exists DTap/Tdap Vaccines (3 [...] as of this encounter Visit Diagnoses Diagnosis Nausea Nausea alone documented in this encounter Advance Directives Documents on File Type Date Recorded Patient Stringing Machine Tender Expl anation Power of Fundraising Assistant 08/28/2016 POWER OF A TTORNEY POWER OF TEST FACILITY ENGINEER INFO Care Teams Environmental Services Tech Relationship Specialty Start Date End Date Destiny Mark DO [address] [place] [address] PCP - General Family Medicine 12/20/22 documented as of this encounter
--- OUTSIDE RECORDS SUMMARY | 2024-07-27 11:19 | External Medical Summary | Summary of Care ---
Author Name Unknown Organization [facility] Address [address] [place] [address] Phone [phone] Care Team Providers Care Sas Architect Name Role Phone Destiny Mark DO Primary Care Provider [phone] Reason for Visit * Reason Onset Date Comments Medication Refill 07/22/2024 Encounter Details Date Type Department Care Team (Late st Contact Info) Description 07/22/2024 Refill [facility] [address] [place] [address] Destiny Mark DO [address] [place] [address] Restless legs syndrome Allergies Active Allergy Reactions Criticality Noted Date [...] evening 180 Tablet 1 4 Active Nystatin 916860 UNIT/GM External Powder (Nystop)Indications: Damari rash of [...] MG Oral Tablet (Mirapex)Indications :Restless legs syndrome Take 1 Tablet by mouth in the morning and 1 Tablet at noon and 1 Tablet before bedtime. 270 Tablet 1 4 Active Pramipexole Dihydrochloride 0.25 [...] 07/23/2024 1:13 PM EDTSigned Prescriptions: Disp Refills Pramipexole Dihydrochloride 0.25 MG Oral T*270 Ta*1 Sig: Take 1 Tablet by mouth in the morning and 1 Tablet at noon and 1 Tablet before bedtime. Authorizing Provider: DESTINY MARK * Telephone Encounter - Adeline Dozier LPN - 07/23/2024 12:56 PM EDTPending Prescriptions: Disp Refills Pramipexole Dihydrochloride 0.25 MG Oral T*270 Ta*1 * Telephone Encounter - Macarena Bullard - 07/22/2024 4:27 PM EDTPending Prescriptions: Disp Refills Pramipexole Dihydrochloride 0.25 MG Oral T*270 Ta*1 documented in this encounter Plan of Treatment Upcoming Encounters Date Type Department Care Team (Late st Contact Info) Description 07/26/2024 2:45 PM EST Laboratory Lab [facility] [address] [place] [address] Mvmg, Gml Mobile Home Draw [address] [place] [address] 08/02/2024 2:45 PM EST Laboratory Lab Mobile Phlebotomy [facility] [address] [place] [address] Mvmg, Gml Mobile Home Draw [address] [place] [address] 08/04/2024 10:30 AM EST Telemedicine Pharmacy, [facility] 132 [facility] [place] [address] [facility] 132 [facility] [place] [address] 08/09/2024 2:45 PM EST Laboratory Lab Mobile Phlebotomy [facility] [address] [place] [address] Mvmg, Gml Mobile Home Draw [facility] [place] [address] 08/25/2024 1:00 PM EST Office Visit Interventional Pain Center, [facility] [address] [facility] [place] [address] Alfreda Delong PA-C [address] [facility] [place] [address] 09/28/2024 3:00 PM EST Office Visit Interventional Pain Center, [facility] [address] [facility] [place] [address] Natan Collins DO [address] [place] [address] 09/29/2024 2:00 PM EST Office Visit Rheumatology [address] [place] [address] Lance Castanon CRNP [address] [place] [address] [place] [address] 12/27/2024 2:40 PM EDT Office Visit Nephrology, [facility] 200 [facility] [place] [address] Brigido Francis MD [address] [place] [address] 12/28/2024 3:00 PM EDT Office Visit Pulmonary Medicine, [facility] [place] [address] Bryant Dawson MD [address] [place] [address] Scheduled Procedures Name Priority Associated Diagnoses Date/Ti [...] as of this encounter Visit Diagnoses Diagnosis Restless legs syndrome Restless legs syndrome (RLS) documented in this encounter Advance Directives Documents on File Type Date Recorded Patient Scrub Technician Expl anation Power of Spud Sorter 08/28/2016 POWER OF A TTORNEY POWER OF A R COLLECTIONS REP INFO Care Teams Sas Architect Relationship Specialty Start Date End Date Destiny Mark DO [address] [place] [facility] [place] [address] PCP - General Family Medicine 12/20/22 documented as of this encounter
--- OUTSIDE RECORDS SUMMARY | 2024-07-27 11:20 | External Medical Summary | Summary of Care ---
Author Name Unknown Organization [facility] Address [address] [place] [address] Phone [phone] Care Team Providers Care Buckle Attacher Name Role Phone Uma Mark DO Primary Care Provider Encounter Details Date Type Department Care Team (Late st Contact Info) Description 06/28/2024 Telephone [facility] [address] [place] [address] Uma Mark DO [address] [place] [address] Allergies Active Allergy Reactions Criticality [...] evening 180 Tablet 1 4 Active Nystatin 589423 UNIT/GM External Powder (Nystop)Indications :Damari rash of [...] Telephone Encounter - Uma Mark DO - 06/28/2024 1:37 PM EDT Repeat sodium normal. documented in this encounter Plan of Treatment Upcoming Encounters Date Type Department Care Team (Late st Contact Info) Description 07/05/2024 2:45 PM EDT Laboratory Lab Mobile Phlebotomy [facility] [address] [place] [address] Mvmg, Gml Mobile Home Draw [address] [place] [address] Hyponatremia 07/12/2024 2:45 PM EDT Laboratory Lab Mobile Phlebotomy [facility] [address] [place] [address] Mvmg, Gml Mobile Home Draw [address] [place] [address] 07/19/2024 2:45 PM EDT Laboratory Lab Mobile Phlebotomy [facility] [address] [place] [address] Mvmg, Gml Mobile Home Draw [address] [place] [address] 07/26/2024 2:45 PM EST Laboratory Lab Mobile Phlebotomy [facility] [address] [facility] [place] [address] Mvmg, Gml Mobile Home Draw [address] [facility] [place] [address] 08/02/2024 2:45 PM EST Laboratory Lab Mobile Phlebotomy [facility] [address] [facility] [place] [address] Mvmg, Gml Mobile Home Draw [address] [facility] [place] [address] 08/04/2024 10:30 AM EST [facility]medicine Pharmacy, [facility] [place] [address] [facility] [address] [place] [address] 08/09/2024 2:45 PM EST Laboratory Lab Mobile Phlebotomy [facility] [address] [facility] [place] [address] Mvmg, Gml Mobile Home Draw [facility] [place] [address] 08/25/2024 3:30 PM EST Office Visit Interventional Pain Center, [facility] [address] [place] [address] Alfreda Delong PA-C [address] [place] [address] 09/28/2024 3:00 PM EST Office Visit Inter[facility], [facility] [address] [place] [address] Natan Collins DO [address] [place] [address] 09/29/2024 2:00 PM EST Office Visit Rheumatology [place] [address] [place] [address] Lance Castanon CRNP [facility] [employer] [place] [address] 12/27/2024 2:40 PM EDT Office Visit Nephrology, [facility] [place] [address] [place] [address] Brigido Francis MD 200 [facility] [place] [address] Scheduled Procedures Name Priority Associated Diagnoses Date/Ti [...] 10/28/2024 10/28/2017, 09/2009, 10/23/2009 TSH 05/14/2025 05/14/2024, 040 11/2023, 06/23/2023, Additional history exists Depression Monitoring 05/31/2025 05/31/2024 GFR 06/28/2025 06/28/2024, 05/25, 06/14/2024, Additional history exists Albumin/Creatinine Ratio 06/23/2026 023, [...] Documents on File Type Date Recorded Patient Medical Collections Specialist Expl anation Power of Financial Systems Administrator 08/28/2016 POWER OF A TTORNEY POWER OF PERFORMANCE TESTER INFO Care Teams Buckle Attacher Relationship Specialty Start Date End Date Uma Mark DO [address] [place] [facility] [place] [address] PCP - General Family Medicine 12/20/22 documented as of this encounter
--- OUTSIDE RECORDS SUMMARY | 2024-07-27 11:20 | External Medical Summary | Summary of Care ---
Author Name Unknown Organization [facility] Address [address] [place] [address] Phone [phone] Care Team Providers Care Electric Deicer Assembler Name Role Phone Destiny Mark DO Primary Care Provider Reason for Visit * Reason Onset Date Comments Test Results 06/28/2024 Encounter Details Date Type Department Care Team (Late st Contact Info) Description 06/28/2024 Telephone [facility] [address] [place] [address] Destiny Mark DO [address] [place] [address] Test Results Allergies Active Allergy [...] evening 180 Tablet 1 4 Active Nystatin 054227 UNIT/GM External Powder (Nystop)Indications :Damari rash of [...] encounter Miscellaneous Notes * Addendum Note - Destiny Mark DO [...] Laboratory Lab Mobile Phlebotomy [facility] [address] [place] [address] Mvmg, Gml Mobile Home Draw [address] [place] [address] Hyponatremia 07/12/2024 2:45 PM EDT Laboratory Lab Mobile Phlebotomy [facility] [address] [place] [address] Mvmg, Gml Mobile Home Draw [address] [place] [address] 07/19/2024 2:45 PM EDT Laboratory Lab Mobile Phlebotomy [facility] [address] [place] [address] [address] Mvmg, Gml Mobile Home Draw [address] [place] [address] 07/26/2024 2:45 PM EST Laboratory Lab Mobile Phlebotomy [facility] [address] [facility] [place] [address] Mvmg, Gml Mobile Home Draw [address] [facility] [place] [address] 08/02/2024 2:45 PM EST Laboratory Lab Mobile Phlebotomy [facility] [address] [facility] [place] [address] Mvmg, Gml Mobile Home Draw 25[address] [facility] [place] [address] 08/04/2024 10:30 AM EST Telemedicine Pharmacy, [facility] [address] [place] [address] [facility] [address] [place] [address] 08/09/2024 2:45 PM EST Laboratory Lab Mobile Phlebotomy [facility] [address] [place] [address] Mvmg, Gml Mobile Home Draw [facility] [place] [address] 08/25/2024 3:30 PM EST Office Visit Interventional Pain Center, [facility] [address] [place] [address] Alfreda Delong PA-C [address] [place] [address] 09/28/2024 3:00 PM EST Office Visit Interventional Pain Center, [facility] [address] [place] [address] Natan Collins DO [address] [place] [phone] 09/29/2024 2:00 PM EST Office Visit Rheumatology [place] [address] [place] [address] Lance Castanon CRNP [address] [place] [address] 12/27/2024 2:40 PM EDT Office Visit Nephrology, [facility] [place] [address] [facility] [place] [address] Brigido Francis MD [address] [facility] [place] [address] Scheduled Orders Name Type Priority Associated Diagnoses [...] Cancer Screening 10/03/2026 Lipid Panel 12/23/2028 12/24/2023, 2022, 04/12/2021, Additional history exists DTap/Tdap Vaccines (3 [...] Diagnoses Diagnosis Acquired hypothyroidism- Primary Unspecified hypothyroidism Hyponatremia Hyposmolality and/or hyponatremia documented in this encounter Advance Directives Documents on File Type Date Recorded Patient Anvilsmith Expl anation Power of Police Pilot 08/28/2016 POWER OF A TTORNEY POWER OF SEISMIC PROSPECTING OBSERVER HELPER INFO Care Teams Electric Deicer Assembler Relationship Specialty Start Date End Date Destiny Mark DO [address] [place] [address] PCP - General Family Medicine 12/20/22 documented as of this encounter
--- OUTSIDE RECORDS SUMMARY | 2024-07-27 11:20 | External Medical Summary | Summary of Care ---
Author Name Unknown Organization [facility] Address [address] [place] [address] Phone [phone] Care Team Providers Care Tanning Consultant Name Role Phone Uma Mark DO Primary Care Provider Reason for Visit * Reason Onset Date Comments Test Results 06/28/2024 Encounter Details Date Type Department Care Team (Late st Contact Info) Description 06/28/2024 Telephone [facility] [address] [place] [address] Uma Mark DO [address] [place] [address] Test Results Allergies Active Allergy [...] evening 180 Tablet 1 4 Active Nystatin 347516 UNIT/GM External Powder (Nystop)Indications :Damari rash of [...] encounter Miscellaneous Notes * Telephone Encounter - Jocelyne Castillo LPN [...] dedicated nurse line. * Telephone Encounter - Uma Mark DO - 06/28/2024 1:37 PM EDT Repeat sodium normal. documented in this encounter Plan of Treatment Upcoming Encounters Date Type Department Care Team (Late st Contact Info) Description 07/05/2024 2:45 PM EDT Laboratory Lab Mobile Phlebotomy [facility] [address] [place] [address] Mvmg, Gml Mobile Home Draw [address] [place] [address] Hyponatremia 07/12/2024 2:45 PM EDT Laboratory Lab Mobile Phlebotomy [facility] [address] [place] [address] Mvmg, Gml Mobile Home Draw [address] [place] [address] 07/19/2024 2:45 PM EDT Laboratory Lab Mobile Phlebotomy [facility] [address] [place] [address] Mvmg, Gml Mobile Home Draw [address] [place] [address] 07/26/2024 2:45 PM EST Laboratory Lab Mobile Phlebotomy [facility] [address] [place] [address] Mvmg, Gml Mobile Home Draw [address] [place] [address] 08/02/2024 2:45 PM EST Laboratory Lab Mobile Phlebotomy [facility] [address] [place] [address] Mvmg, Gml Mobile Home Draw [address] [place] [address] 08/04/2024 10:30 AM EST Telemedicine Pharmacy, [facility] [address] [facility] [address] [facility] [address] [place] [address] 08/09/2024 2:45 PM EST Laboratory Lab Mobile Phlebotomy [facility] [place] [address] Mvmg, Gml Mobile Home Draw [address] [place] [address] [place] [address] 08/25/2024 3:30 PM EST Office Visit Interventional Pain Center, [facility] [address] [facility] [place] [address] Alfreda Delong PA-C [address] [facility] [place] [address] 09/28/2024 3:00 PM EST Office Visit Interventional Pain Center, [facility] [address] [facility] [place] [address] Natan Collins DO [address] [place] [address] 09/29/2024 2:00 PM EST Office Visit Rheumatology [address] [place] [address] Lance Castanon CRNP [address] [place] [address] [place] [address] 12/27/2024 2:40 PM EDT Office Visit Nephrology, [facility] [address] [place] [address] Brigido Francis MD [address] [place] [address] [address] Scheduled Procedures Name Priority Associated Diagnoses Date/Ti [...] Documents on File Type Date Recorded Patient Emergency Management Director Expl anation Power of Lead Systems Developer 08/28/2016 POWER OF A TTORNEY POWER OF ORACLE FUSION [place] ARCHITECT [facility] Care Teams Tanning Consultant Relationship Specialty Start Date End Date Uma Mark DO [address] [place] [facility] [place] [address] PCP - General Family Medicine 12/20/22 documented as of this encounter
--- OUTSIDE RECORDS SUMMARY | 2024-07-27 11:20 | External Medical Summary | Summary of Care ---
Author Name Unknown Organization [facility] Address [address] [place] [address] Phone [phone] Care Team Providers Care Final Coat Sprayer Name Role Phone Uma Mark DO Primary Care Provider Encounter Details Date Type Department Care Team (Late st Contact Info) Description 06/28/2024 Telephone [facility] [address] [place] [address] Uma Mark DO [address] [place] [address] Allergies Active Allergy Reactions Criticality [...] evening 180 Tablet 1 4 Active Nystatin 577845 UNIT/GM External Powder (Nystop)Indications :Damari rash of [...] Miscellaneous Notes * Telephone Encounter - Bere aTmez LPN - 07/05/2024 11:43 AM EDT Attempted [...] Mobile Phlebotomy [facility] [address] [place] [address] [address] Mvmg, Gml Mobile Home Draw [address] [place] [address] Hyponatremia 07/12/2024 2:45 PM EDT Laboratory Lab Mobile Phlebotomy [facility] [address] [place] [address] [address] Mvmg, Gml Mobile Home Draw 2520 [place] [address] 07/19/2024 2:45 PM EDT Laboratory Lab Mobile Phlebotomy [facility] [address] [place] [address] Mvmg, Gml Mobile Home Draw [address] [place] [address] 07/26/2024 2:45 PM EST Laboratory Lab Mobile Phlebotomy [facility] [address] [place] [address] Mvmg, Gml Mobile Home Draw [address] [place] [address] 08/02/2024 2:45 PM EST Laboratory Lab Mobile Phlebotomy [facility] [address] [place] [address] Mvmg, Gml Mobile Home Draw [address] [place] [address] 08/04/2024 10:30 AM EST Telemedicine Pharmacy, [facility] [address] [place] [address] [facility] [place] [address] 08/09/2024 2:45 PM EST Laboratory Lab Mobile Phlebotomy [facility] [address] [place] [address] Mvmg, Gml Mobile Home Draw [address] [place] [address] 08/25/2024 3:30 PM EST Office Visit Interventional Pain Center, [facility] [address] [place] [address] Alfreda Delong PA-C [address] [place] [address] 09/28/2024 3:00 PM EST Office Visit Interventional Pain Center, [facility] [address] [place] [address] Natan Collins, [address] [place] [phone] 09/29/2024 2:00 PM EST Office Visit Rheumatology [facility] [address] [place] [address] Lance Castanon CRNP [address] [place] [address] 12/27/2024 2:40 PM EDT Office Visit Nephrology, [facility] 200 [facility] [place] [address] Brigido Francis MD [address] [place] [address] Scheduled Procedures Name Priority Associated Diagnoses Date/Ti [...] Documents on File Type Date Recorded Patient Records Technician Expl anation Power of Director Nursing Service 08/28/2016 POWER OF A TTORNEY POWER OF SPACE SYSTEMS OPERATIONS [facility] Care Teams Final Coat Sprayer Relationship Specialty Start Date End Date Uma Mark DO [address] [place] [address] PCP - General Family Medicine 12/20/22 documented as of this encounter
--- OUTSIDE RECORDS SUMMARY | 2024-07-27 11:20 | External Medical Summary ---
Author Name Unknown Address Unknown Organization [facility] [place] [address] Laboratory Report Ordering Provider Test Date Status DELMAR DIXON 07/05/2024 08:57:00 Final Observation Date Value Abnormality Reference (Units ) Status BUN 07/05/2024 08:57:00 28 Above high normal 6-20 (mg/dL) Final Creatinine 07/05/2024 08:57:00 0.6 0.5-1.0 (mg/dL) Final Glomerular filtration rate/1.73 sq M.predicted [Volume Rate/Area] in Serum, Plasma or Blood by Creatinine-based formula (CKD-EPI) 07/05/2024 08:57:00 >90 >=60 (mL/min) Final eGFR is calculated based on the CKD-EPI 2020 equation. Sodium 07/05/2024 08:57:00 141 135-146 (m mol/L) Final Potassium 07/05/2024 08:57:00 4.6 3.5-5.1 (m mol/L) Final Cl 07/05/2024 08:57:00 103 98-107 (mm ol/L) Final CO2 07/05/2024 08:57:00 24 22-32 (mmo l/L) Final Anion gap 07/05/2024 08:57:00 14 7-15 (mmol /L) Final Glucose 07/05/2024 08:57:00 111 70-120 (mg /dL) Final Calcium 07/05/2024 08:57:00 9.5 8.4-10.2 ( mg/dL) Final Performing Location [facility] [place] [address]
--- OUTSIDE RECORDS SUMMARY | 2024-07-27 11:20 | External Medical Summary | Summary of Care ---
Author Name Unknown Organization [facility] Address [address] [place] [address] Phone [phone] Care Team Providers Care Filler Shredder Name Role Phone Uma Mark DO Primary Care Provider Reason for Visit * Reason Onset Date Comments Test Results 06/28/2024 Encounter Details Date Type Department Care Team (Late st Contact Info) Description 06/28/2024 Telephone [facility] [address] [place] [address] Uma Mark DO [address] [place] [address] Test Results Allergies Active Allergy [...] evening 180 Tablet 1 4 Active Nystatin 013110 UNIT/GM External Powder (Nystop)Indications :Damari rash of [...] encounter Miscellaneous Notes * Telephone Encounter - Natalie Trammell LPN [...] EDT Laboratory Lab Mobile Phlebotomy [facility] [address] [place] [address] Mvmg, Gml Mobile Home Draw [address] [place] [address] Hyponatremia 07/12/2024 2:45 PM EDT Laboratory Lab Mobile Phlebotomy [facility] [address] [place] [address] Mvmg, Gml Mobile Home Draw [address] [place] [address] [place] [address] 07/19/2024 2:45 PM EDT Laboratory Lab Mobile Phlebotomy [facility] [address] [place] [address] Mvmg, Gml Mobile Home Draw [address] [place] [address] [place] [address] 07/26/2024 2:45 PM EST Laboratory Lab Mobile Phlebotomy [facility] [address] [place] [address] Mvmg, Gml Mobile Home Draw [address] [place] [address] [place] [address] 08/02/2024 2:45 PM EST Laboratory Lab Mobile Phlebotomy [facility] [address] [place] [address] Mvmg, Gml Mobile Home Draw 2520 [facility] [place] [address] 08/04/2024 10:30 AM EST Telemedicine Pharmacy, [facility] 132 [facility] [place] [address] [facility] 132 [facility] [place] [address] 08/09/2024 2:45 PM EST Laboratory Lab Mobile Phlebotomy [facility] [address] [place] [address] Mvmg, Gml Mobile Home Draw [address] [place] [address] 08/25/2024 3:30 PM EST Office Visit Interventional Pain Center, [facility] 132 [facility] [place] [address] Alfreda Delong PA-C [address] [place] [address] 09/28/2024 3:00 PM EST Office Visit Interventional Pain Center, [facility] [address] [place] [address] Natan Collins DO [address] [place] [address] 09/29/2024 2:00 PM EST Office Visit Rheumatology [place] [address] [facility] [place] [address] Lance Castanon CRNP [address] [employer] [place] [address] 12/27/2024 2:40 PM EDT Office Visit Nephrology, [facility] 200 [facility] [place] [address] Brigido Francis MD [address] [place] [address] Scheduled Procedures Name Priority Associated Diagnoses Date/Ti [...] Documents on File Type Date Recorded Patient Silica Mixer Operator Expl anation Power of Chucking And Sawing Machine Operator 08/28/2016 POWER OF A TTORNEY POWER OF ART SALES CONSULTANT INFO Care Teams Filler Shredder Relationship Specialty Start Date End Date Uma Mark DO [address] [facility] [place] [address] PCP - General Family Medicine 12/20/22 documented as of this encounter
[2024-07-27] MEDS: ENOXAPARIN INJ 40 MG/0.4 ML SYR SQ SCH (11:27)
[2024-07-27] MEDS ORDERED: ACETAMINOPHEN 325 MG TAB PO PRN (15:14)
[2024-07-27] MEDS ORDERED: ONDANSETRON 4 MG OD TAB PO PRN (15:25)
[2024-07-27] MEDS: CYANOCOBALAMIN (B-12) 2,500 MCG TABLET SL SCH (16:21)
[2024-07-27] MEDS: azaTHIOprine 50 MG TAB PO SCH (16:21)
[2024-07-27] MEDS: FUROSEMIDE 20 MG TAB PO SCH (16:22)
[2024-07-27] MEDS: FOLIC ACID 1 MG TAB PO SCH (16:22)
[2024-07-27] MEDS: DULoxetine HCL 60 MG CAP PO SCH (16:23)
[2024-07-27] MEDS: PRAMIPEXOLE DIHYDROCHLO 0.5 MG TAB PO SCH (16:24)
[2024-07-27] MEDS: buPROPion XL 150 MG TABCR PO SCH (16:24)
--- NOTE | 2024-07-27 16:24 | XRay Report ---
Clinical History: Shortness of breath Technique: PA and lateral views of the chest were obtained Comparison is made to the prior examination dated 03/07/2024 Findings: There are no definite pulmonary infiltrates. The heart size is within normal limits. No pleural effusion or pneumothorax is seen. There is right lung base atelectasis No fracture is noted. There is thoracic and lumbar scoliosis and degenerative disc disease Impression: Right lung base atelectasis Electronically signed by Nico Cherry 07-27-2024 4:23 PM
[2024-07-27] MEDS: ASPIRIN 81 MG ECTAB PO SCH (16:25)
[2024-07-27] MEDS: DULoxetine HCL 30 MG CAP PO SCH (16:25)
[2024-07-27] MEDS: valACYclovir HCL 500 MG TABLET PO SCH (16:25)
[2024-07-27] MEDS: CALCIUM CARBONATE 1250MG TAB PO SCH (16:26)
[2024-07-27] MEDS: CHOLECALCIFEROL 125 MCG (5,000 UNITS) TAB PO SCH (16:26)
[2024-07-27] MEDS: ATENOLOL 25 MG TABLET PO SCH (16:26)
[2024-07-27] MEDS: busPIRone 5 MG TAB PO SCH (16:27)
[2024-07-27] MEDS: FERROUS SULFATE 325 MG TAB PO SCH (16:27)
[2024-07-27] MEDS: tiZANidine HCL 4 MG TABLET PO SCH (16:27)
[2024-07-27] MEDS: VITAMIN B COMPLEX TAB PO SCH (16:28)
[2024-07-27] MEDS: ACETAMINOPHEN 500 MG TAB PO SCH (16:42)
[2024-07-27] MEDS: POLYETHYLENE (MIRALAX) 17 GM PACK PO SCH (16:42)
[2024-07-27 19:39] VITALS: RESP 16
[2024-07-27] MEDS: CYPROHEPTADINE HCL 4 MG TAB PO SCH (20:43)
[2024-07-27] MEDS: MULTIVITAMIN TAB PO SCH (20:43)
[2024-07-27] MEDS: ATORVASTATIN 10 MG TAB PO SCH (20:44)
[2024-07-27] MEDS: LORazepam 1 MG TAB PO SCH (20:44)
[2024-07-27] MEDS: DOCUSATE SODIUM 100 MG CAP PO SCH (20:45)
[2024-07-27] MEDS: LOSARTAN POTASSIUM 50 MG TAB PO SCH (20:45)
[2024-07-27] MEDS: PANTOprazole 40 MG TAB PO SCH (20:46)
[2024-07-28] MEDS: LEVOTHYROXINE SODIUM 88 MCG TABLET PO SCH (05:36)
[2024-07-28] MEDS ORDERED: PANTOprazole 40 MG TAB PO SCH (06:30)
[2024-07-28 08:05] LABS: Basophils # (auto) 0.04 K/uL (0.00-0.20); Basophils % (auto) 0.6 %; Eosinophils # (auto) 0.23 K/uL (0.00-0.50); Eosinophils % (auto) 3.4 %; Hematocrit (blood only) 36.8 % (37.0-47.0); Hemoglobin 11.9 g/dl (12.0-16.0); Immature Granulocytes # (auto) 0.03 K/uL (0.01-0.20); Immature Granulocytes % (auto) 0.4 %; Lymphocytes # (auto) 2.01 K/uL (1.20-3.40); Lymphocytes % (auto) 29.3 %; Mean Corpuscular Hemoglobin 34.1 pg (25.0-34.0); Mean Corpuscular Hgb Conc 32.3 g/dL (32.0-36.0); Mean Corpuscular Volume 105.4 fL (80.0-100.0); Mean Platelet Volume 8.8 fL (9.4-12.4); Monocytes # (auto) 0.59 K/uL (0.11-0.59); Monocytes % (auto) 8.6 %; Neutrophils # (auto) 3.96 K/uL (1.40-6.50); Neutrophils % (auto) 57.7 %; Platelet Count 283 K/uL (130-400); RDW Coefficient of Variation 14.5 % (11.5-14.5); RDW Standard Deviation 56.3 fL (36.4-46.3); Red Blood Count 3.49 M/uL (4.20-5.40); White Blood Count 6.86 K/ul (4.8-10.8)
[2024-07-28] MEDS: MAGNESIUM OXIDE 400 MG TAB PO SCH (08:26)
[2024-07-28 08:30] LABS: Albumin Globulin Ratio 1.3 (0.9-2); Albumin Level 3.8 gm/dl (3.4-5.0); BUN Creatinine Ratio 46.4 (10-20); Bilirubin,Total 0.4 mg/dl (0.2-1.0); Calcium 9.3 mg/dl (8.6-10.3); Creatinine Clr Calc Pharmacy 92.3 ml/min; Potassium 4.2 mmol/L (3.5-5.1); Total Protein 6.8 gm/dl (6.0-8.3)
[2024-07-28 08:44] LABS: Thyroid Stimulating Hormone 1.089 uIu/ml (0.300-4.500)
[2024-07-28 08:54] LABS: Folate (Folic Acid),Ser orPlas > 22.30 ng/ml (>5.38)
[2024-07-28 08:55] LABS: Vitamin B12 > 1500 pg/ml (180-914)
[2024-07-28 14:39] VITALS: BP 110/68; PULSE 65; TEMP 98.1; O2SAT 96
--- NOTE | 2024-07-28 15:23 | Discharge Summary ---
Discharge Summary Date of Service July 28, 2024 Principal Dx & Hospital Course #1 = Principal Diagnosis (1) Anxiety: (2) Insomnia: (3) Restless leg syndrome: Xenia Christian is a 73-year-old female with PMHx significant for polymyositis, generalized osteoarthritis, HTN, HLD, acquired hypothyroidism, interstitial lung disease, RLS, major depressive disorder/PTSD/anxiety, history of GERD, insomnia and chronic hyponatremia/SIADH who presented to the ED on 07/27/2024 with concerns of increasing anxiety/insomnia and worsening restless legs syndrome. Worsening Anxiety/Insomnia, SOB: Patient had been struggling with increasing anxiety and insomnia for multiple days prior to arrival. She was also experiencing some increased shortness of breath as a result of her worsening anxiety as well. Patient had unfortunately thrown out her Ativan prescriptions at home by accident and has been without this medication for multiple days. No hypoxia noted during her admission; she also had no respiratory symptoms/leukocytosis to indicate pneumonia either. CXR and echocardiogram were unremarkable. She did not require any supplemental oxygen. She does have interstitial lung disease per chart review. Her symptoms improved significantly with IV Ativan and resumption of her home Ativan doses. She is scheduled to see Dr. Uma Mark on 08/02/2024. Short prescriptions for Ativan have been sent to her pharmacy to hold her over until she sees her PCP. She can continue her other mental health medications as previously prescribed. Restless Legs Syndrome: Patient had been dealing with worsening restless legs symptoms for multiple days prior to arrival as well. She had unfortunately not been taking her Mirapex as previously prescribed because she did not have any refills available. She is being discharged home with a prescription of Mirapex to hold her over until she sees her PCP next week. SIADH: Sodium remained stable throughout this admission, can continue her home Lasix at time of discharge. She follows with [facility] - Dr. Brigido Francis. Other Chronic Medical Conditions: HTN/HLD, polymyositis, GERD --> Can continue all other home medications as previously prescribed. PCP: Uma Mark, Disposition: Patient is being discharged home in stable condition with close PCP follow-up to help manage her anxiolytic/neuropathic medications. Patient seen in collaboration with Dr. Rivera. Please see addendum. I spent a total of 55 minutes coordinating, documenting, and providing care for this patient excluding time spent in the performance of separately billed services. This included personally reviewing all current laboratories and imaging studies, medical reconciliation, outpatient chart review and discussion with specialists. This chart was completed in part utilizing Speech Voice Recognition Software. Grammatical errors, random word insertions, pronoun errors, and incomplete se ntences are an occasional consequence of this system due to software limitations, ambient noise, and hardware issues. Any formal questions or concerns about the content, text, or information contained within the body of this dictation should be directly addressed to the provider for clarification. Notes For Next Care Provider Patient will need refills of both her Mirapex and Ativan. Medication Changes From Visit No medication changes were made during this admission. Admission HPI Per Admitting Provider The patient is a 73-year-old female with a past medical history of insomnia, RLS, anxiety, PTSD, HTN, myopathy, hypothyroidism, depression, SIADH, GERD, polymyositis who presents to the ED on 07/27/2024 with concerns of insomnia and worsening RLS. Patient reports that she has not been able to take her Mirapex over the past few days because she did not have a refill available. Reports her anxiety has been worsening. On arrival to the ED, respirations were in the 60s, no hypoxia was noted. On exam, the patient's respirations are now in the 20s. She denies any shortness of breath. Does report some dyspnea on exertion. Denies chest pain/fever/chills/recent respiratory illness. There were concerns with the patient's inability to manage her own medications. The patient's daughter is at bedside and reports setting up her medications for her on a daily basis. On arrival to the ED, labs remarkable for RBC 3.74, BUN 41. The patient was given IV lorazepam and fentanyl, Mirapex. The patient will be admitted for further management of medications. Admission Exam Per Admitting Provider Constitutional: WD/WN, vitals as above Eyes: PERRL, conjunctivae normal, anicteric sclerae ENMT: external ear and nose normal, oropharynx normal Neck: trachea midline, no thyromegaly Respiratory: normal respiratory effort, lungs clear to auscultation Cardiovascular: RRR, no murmur, no edema Gastrointestinal (Abdomen): normal bowel sounds, soft, nontender, no hepatosplenomegaly Musculoskeletal: no cyanosis or clubbing, extremities motor strength 5/5 Skin: no rashes, warm and dry Neurologic: PERRL, EOMI, accommodation nl, no face palsy, no dysarthria (RLS on exam) Psychiatric: A+Ox3, euthymic affect Lymphatic: no cervical or axillary lymphadenopathy Discharge Exam General: WD/WN, vitals as above, NAD, sitting up in bed, very pleasant, conversing appropriately, A+Ox3. HEENT: Normocephalic, atraumatic. Conjunctivae normal, anicteric sclerae. External ear and nose normal, oropharynx normal. Respiratory: Normal respiratory effort, lungs clear to auscultation, no wheeze, rales, rhonchi. No accessory muscle use. Cardiovascular: Regular rate, rhythm, no murmur, normal peripheral pulses, no BLE edema. Vessels: No JVD. Abdomen/GI: Normal bowel sounds, soft, nontender, no hepatosplenomegaly. Extremities/Musculoskeletal: No cyanosis or clubbing, extremities motor strength intact, moves all extremities. Neurologic: No focal deficits, CN's II-XI not formally tested but appear grossly intact bilaterally. Skin: No rashes, normal color, warm/dry. Updated Medication List Medication Instructions Recorded Confirmed Type bupropion HCl 150 mg 24 hr tablet, 150 mg PO QAM 07/11/19 07/27/24 History extended release (Wellbutrin XL) buspirone 10 mg tablet 10 mg PO .EVERY 8 HRS 07/11/19 07/27/24 History cholecalciferol (vitamin D3) 125 5,000 unit PO QAM 07/11/19 07/27/24 History mcg (5,000 unit) tablet (Vitamin D3) cyproheptadine 4 mg tablet 8 mg PO HS 07/11/19 07/27/24 History docusate sodium 100 mg capsule 100 mg PO AMHS 07/11/19 07/27/24 History ferrous sulfate 325 mg (65 mg 325 mg PO Q2D 07/11/19 07/27/24 History iron) tablet folic acid 1 mg tablet 1 mg PO QAM 07/11/19 07/27/24 History omeprazole 20 mg capsule,delayed 20 mg PO AMHS 07/11/19 07/27/24 History release levothyroxine 88 mcg tablet 88 mcg PO DAILYBB 08/19/22 07/27/24 History meclizine 12.5 mg tablet 12.5 mg PO TID PRN Dizziness 01/22/23 07/27/24 History ondansetron HCl 4 mg tablet 4 mg PO Q6 PRN Nausea 01/22/23 07/27/24 History valacyclovir 500 mg tablet 500 mg PO QAM 01/22/23 07/27/24 History azathioprine 50 mg tablet 50 mg PO QAM 11/25/23 07/27/24 History azelastine 137 mcg (0.1 %) nasal See Rx Instructions .Route .COMPLEX 02/25/24 07/27/24 History spray cyanocobalamin (vitamin B-12) 5,000 mcg sublingual DAILY 02/25/24 07/27/24 History 5,000 mcg sublingual tablet (Vitamin B-12) vit C 50 mg-E 15 unit-zinc cit 4.5 1 tab PO DAILY 02/25/24 07/27/24 History mg-lutein 2.5 mg-zeaxan chew tablet ([facility]) vitamin B complex 1 tab PO DAILY 02/25/24 07/27/24 History aspirin 81 mg tablet,delayed 81 mg PO DAILY 42 days #0 tabs 02/29/24 07/27/24 Rx release acetaminophen 500 mg tablet 1,000 mg PO Q8 03/07/24 07/27/24 History atorvastatin 10 mg tablet 10 mg PO HS 03/07/24 07/27/24 History calcium carbonate 500 mg PO BID 03/07/24 07/27/24 History magnesium oxide 400 mg PO DAILY 03/07/24 07/27/24 History multivitamin 1 tab PO HS 03/07/24 07/27/24 History nystatin 100,000 unit/gram topical See Rx Instructions .Route .COMPLEX 03/07/24 07/27/24 History cream pantoprazole 40 mg tablet,delayed 40 mg PO DAILYBB 03/07/24 07/27/24 History release polyethylene glycol 3350 17 gram 17 g PO TID constipation 03/07/24 07/27/24 History oral powder packet (Miralax) tizanidine 2 mg tablet 2 mg PO Q8 03/07/24 07/27/24 History atenolol 25 mg tablet 25 mg PO BID #60 tabs 03/17/24 07/27/24 Rx furosemide 20 mg tablet 20 mg PO BID #60 tabs 03/17/24 07/27/24 Rx losartan 50 mg tablet 50 mg PO BID #60 tabs 03/17/24 07/27/24 Rx duloxetine 30 mg capsule,delayed 30 mg PO DAILY #30 caps 03/18/24 07/27/24 Rx release (Cymbalta) duloxetine 60 mg capsule,delayed 60 mg PO DAILY #30 caps 03/18/24 07/27/24 Rx release (Cymbalta) lorazepam 0.5 mg tablet 0.5 mg PO 0800,1400 #10 tabs 07/28/24 Rx lorazepam 1 mg tablet 1 mg PO HS #5 tabs 07/28/24 Rx pramipexole 0.5 mg tablet 0.5 mg PO Q8 #18 tabs 07/28/24 Rx Hospital Stay Data Consultations 07/27/24 08:07 ED Decision to Admit Stat Discharge Instructions Given to Patient (Per Discharging Provider) Agapito Granda were admitted to the hospital due to worsening insomnia/anxiety and restless legs syndrome as you had recently run out of some of your home medications, including your Ativan and Mirapex. We managed your anxiety with IV Ativan and restarted your home dose of oral Ativan. We also restarted your Mirapex for your restless legs. You are being sent home with prescriptions for both your Ativan and Mirapex to have until you follow-up with your primary care provider, Dr. Uma Mark, as outlined below. However, you may not be able to get Ativan prescription until 07/31/2024. You had endorsed some increasing shortness of breath with exertion during your admission. Thankfully your chest x-ray and echocardiogram (ultrasound of your heart) were reassuring and did not reveal any significant findings! You can continue to take all of your other home medications as prescribed. UPCOMING APPOINTMENT Date & Time: 08/02/2024 @ 12:30PM Provider: Uma Mark DO Department: [facility] Seek medical attention if you have: * temperature above 101F * chest pain or trouble breathing * abdominal pain, nausea, vomiting * diarrhea, dark stools or bloody stools * any unanswered questions or concerns Call 911 if symptoms are severe. Please take good care of yourself! It has been a pleasure taking care of you. If you have any questions regarding your recent hospitalization please contact [facility] and request Fred Fay @ [phone]. Total Time Total Time Spent Total Time Spent (In Minutes): 55 Supervising Physician Co-Signing Physician Notes Patient reports she is feeling much better. Refills for her medication provided Plan to follow-up with her primary care doctor as outpatient I have reviewed the advanced practitioner's documentation, and I agree with, and take responsibility for the plan of care I spent a total of 20 minutes coordinating, documenting, and providing care for this patient excluding time spent in the performance of separately billed services. All of the aforementioned completed while collaborating with the assigned advanced practitioner for a full treatment plan
--- NOTE | 2024-08-05 09:21 | Coding Query ---
A supporting diagnosis is required for the test/procedure performed on this patient in order for us to be reimbursed by the patient's insurance. Please provide a supporting diagnosis for the following test/procedure listed below next to the test name along with your signature. *If there is no additional diagnosis for this patient that would support the following test/procedure please document that below next to the test/procedure. Test(s)/Procedure(s) that require a supporting diagnosis: * 92461 Pulse Ox Overnight study DIAGNOSIS: Provider Signature: Date: Thank you Daisy [facility] [employer] Information Management Once completed, please kindly fax back to [phone] For questions please call [phone] [facility]
== END 2024-07-28 17:34 | disposition home or self-care (01) | DRG 57 ==
LOC: ED 04:05 → INTOOBSV 09:07 → SUATTDRO 09:07 → 3N 09:07

== ENCOUNTER 2024-10-13 11:07 | Observation (INO) ==
--- NOTE | 2024-10-13 11:34 | Emergency Department Note ---
Impression & Plan Atypical chest pain Admission ED Provider Note HPI: History obtained from patient. The patient is a 74-year-old female who presents the emergency department with a chief complaint of intermittent chest pain and shortness of breath over the past 2 months. Patient states that she has been exercising with her fitness group and she has noticed during this time that she is getting increasingly fatigued, short of breath, and at times gets left-sided chest discomfort. Patient describes also a vague "vibrating sensation" throughout her entire body at times. Patient states that she mentioned these symptoms to her family medicine provider today via telemedicine visit and was advised to come to the ER. Patient states she did have a recent echocardiogram that was unremarkable, she also states she has a stress test scheduled but it is not until 11/11. On arrival here to the ED the patient otherwise appears to be in no acute distress, she denies any current chest pain. ROS: - Per HPI Differential Diagnosis: Acute coronary syndrome, stable angina, anxiety attack, musculoskeletal chest pain, acute gastritis, esophagitis, pneumothorax, pneumonia, pleuritis, aortic dissection, pulmonary embolism, amongst other potential pathologies. *Outpatient medications and allergy history reviewed. PE: General: Alert HEENT: Normocephalic, trachea midline Eyes: Extraocular eye movement is intact, no scleral erythema Pulmonary: Clear to auscultation bilaterally, no wheezing Cardio: Regular rate and rhythm GI: Abdomen is soft to palpation : No suprapubic tenderness MSK: No evidence of trauma or malformation of the extremities, no edema Skin: No evidence of rash Neuro: Alert, no focal deficits Psychiatric: Cooperative INDEPENDENT INTERPRETATIONS: electronic device monitor: (As interpreted by myself): - An order was placed for continuous cardiac monitoring - Patient was noted to be in sinus rhythm with a rate of 75 EKG: (As interpreted by myself): Rate: 77 Rhythm: Normal sinus rhythm Intervals: QRS 130 ms, otherwise within normal limits ST changes: No ST elevation Time: 1112 Chest x-ray: (As interpreted by myself): No acute disease Medical Decision Making: IV was established and lab work obtained, patient was placed on electronic device monitor. Lab work shows no leukocytosis, hemoglobin is normal, platelet count is normal, CMP does not show any evidence of any critical findings. Troponin is negative x 1. EKG per my interpretation does not show any acute ischemic changes. On my reassessment the patient is resting comfortably in bed, she states she is concerned about the exertional nature of her pain and she does not feel that it is safe to wait until 11/11 after discussing her symptoms with her family. Delta troponin was obtained that remains negative. Given the patient's concerns and the exertional component of her pain, I did discuss her presentation with on- call cardiology, Dr. Salazar. He states the patient will require nuclear stress test, he states this can be done as an outpatient given the patient's unremarkable workup however if the patient will be admitted cardiology would be happy to help arrange stress testing as an inpatient. On my reevaluation patient did discuss this with her family over the phone and she states she would like to be admitted to the hospital to have stress testing done. I discussed the patient's presentation with the [facility] and the patient was placed for admission to the service of Dr. Meehan. Consultants/Discussions held with other healthcare providers: -Cardiology, Dr. Salazar -Hospitalist, Dr. Meehan Disposition discussion held by myself with: -Patient Diagnosis: 1. 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 Encounter for pre-operative examination Hallucinations, visual (Acute) Acute confusion (Acute) AMS (altered mental status) Fall Status post left knee replacement (~09/2022) Arthritis Chronic pain Hyponatremia (Acute) Hx RLS (restless legs syndrome) Closed fracture of right distal femur 2019 no surgery Anemia (Chronic) Anxiety (Chronic) Gastroparesis (Chronic) GERD (gastroesophageal reflux disease) (Chronic) controlled symptoms per pt Medical History Acute dehydration Insomnia Restless leg syndrome Noncompliance with medications Chronic hyponatremia Post traumatic stress disorder (PTSD) Polypharmacy Myopathy Osteoarthritis Polymyositis MTX Depression Hypothyroidism Dyslipidemia HTN (hypertension) controlled, stable per pt Seasonal allergies Chronic rhinitis Hiatal hernia h/o of repair in past, and has at present too Neuropathy feet Refusal of blood product d/t jewish beliefs Elevated hemidiaphragm right Dysphagia worse with meat, happens on occasion Interstitial lung disease Follows with Dr. Eid/XANDER Hx of migraines History of COVID-19 08/2020, loss taste/smell, body aches, sinus issues > resolved (after sinus surgery) none since History of carotid artery disease mild bilateral intracranial ICA stenoses-head MRA 02/2022 Diverticulitis Hx, 2018 Surgical History Hx of cataract extraction Hx of right cataract extraction will see Dr Huff 08/28/23 for F/U H/O hemorrhoidectomy History of tubal ligation Nausea and vomiting after administration of anesthetic agent Years ago, denies needing scop patch History of esophagogastroduodenoscopy (EGD) Hx of colonoscopy Hx of squamous cell carcinoma excision Excision (head) History of back surgery lumbar Family History Other No significant family history Social History Smoking Status: Never smoker Second Hand Exposure: Yes (in past); Do You Dip or Chew Tobacco: No; Hx Alcohol Use: No Hx Substance Use: No Preferred Language: Northern Irish Communication Ability: Effective Private Duty Nurse Required: No Beliefs That Will Affect Care: None Current Living Situation: Alone Current Living Situation Comment: From [facility] Feels Safe at Home: Yes Assistive Devices: Walker Allergies Allergies Allergy/AdvReac Type Severity Reaction Status Date / Time diphenhydramine Allergy Intermediate Hallucinati Verified 02/25/24 17:04 [From Benadryl] ng morphine AdvReac Severe Low BP Verified 02/25/24 17:04 gabapentin AdvReac Intermediate swelling Verified 02/25/24 17:04 of lower legs lisinopril AdvReac Intermediate Cough Verified 02/25/24 17:04 pregabalin [From Lyrica] AdvReac Intermediate sweating/ho Verified 02/25/24 17:04 t Home Meds Home Medications Medication Instructions Recorded Confirmed bupropion HCl 150 mg 24 hr tablet, 150 mg PO QAM 07/11/19 10/13/24 extended release (Wellbutrin XL) buspirone 10 mg tablet 10 mg PO .EVERY 8 HRS 07/11/19 10/13/24 cholecalciferol (vitamin D3) 125 5,000 unit PO QAM 07/11/19 10/13/24 mcg (5,000 unit) tablet (Vitamin D3) cyproheptadine 4 mg tablet 4 mg PO HS 07/11/19 10/13/24 docusate sodium 100 mg capsule 100 mg PO AMHS 07/11/19 10/13/24 ferrous sulfate 325 mg (65 mg 325 mg PO Q2D 07/11/19 10/13/24 iron) tablet folic acid 1 mg tablet 1 mg PO QAM 07/11/19 10/13/24 omeprazole 20 mg capsule,delayed 20 mg PO [facility] 07/11/19 10/13/24 release levothyroxine 88 mcg tablet 88 mcg PO DAILYBB 08/19/22 10/13/24 meclizine 12.5 mg tablet 12.5 mg PO TID PRN Dizziness 01/22/23 10/13/24 ondansetron HCl 4 mg tablet 4 mg PO Q6 PRN Nausea 01/22/23 10/13/24 valacyclovir 500 mg tablet 500 mg PO QAM 01/22/23 10/13/24 azathioprine 50 mg tablet 100 mg PO QA 11/25/23 10/13/24 cyanocobalamin (vitamin B-12) 5,000 mcg sublingual DAILY 02/25/24 10/13/24 5,000 mcg sublingual tablet (Vitamin B-12) vit C 50 mg-E 15 unit-zinc cit 4.5 1 tab PO DAILY 02/25/24 10/13/24 mg-lutein 2.5 mg-zeaxan chew tablet ([facility]) vitamin B complex 1 tab PO DAILY 02/25/24 10/13/24 acetaminophen 500 mg tablet 1,000 mg PO Q8 03/07/24 10/13/24 atorvastatin 10 mg tablet 10 mg PO HS 03/07/24 10/13/24 calcium carbonate 500 mg PO BID 03/07/24 10/13/24 magnesium oxide 400 mg PO DAILY 03/07/24 10/13/24 multivitamin 1 tab PO HS 03/07/24 10/13/24 nystatin 100,000 unit/gram topical See Rx Instructions .Route .COMPLEX 03/07/24 10/13/24 cream polyethylene glycol 3350 17 gram 17 g PO DAILY constipation 03/07/24 10/13/24 oral powder packet (Miralax) tizanidine 2 mg tablet 2 mg PO Q8 03/07/24 10/13/24 lorazepam 0.5 mg tablet 0.5 mg PO HS PRN anxiety/insomnia 10/13/24 10/13/24 losartan 50 mg tablet 50 mg PO DAILY 10/13/24 10/13/24 rosuvastatin 10 mg tablet 10 mg PO DAILY 10/13/24 10/13/24 Previous Rx's Medication Instructions Recorded aspirin 81 mg tablet,delayed 81 mg PO DAILY 42 days #0 tabs 02/29/24 release atenolol 25 mg tablet 25 mg PO BID #60 tabs 03/17/24 furosemide 20 mg tablet 20 mg PO BID #60 tabs 03/17/24 duloxetine 30 mg capsule,delayed 30 mg PO DAILY #30 caps 03/18/24 release (Cymbalta) duloxetine 60 mg capsule,delayed 60 mg PO DAILY #30 caps 03/18/24 release (Cymbalta) pramipexole 0.5 mg tablet 0.5 mg PO Q8 #18 tabs 07/28/24 Results & Data (ED) Vital Signs Vital Signs - 24 hr 10/13/24 11:11 10/13/24 11:11 10/13/24 11:17 Temperature 36.6 C Temperature Source Oral Pulse Rate 93 H Pulse Rate from SpO2 Sensor Respiratory Rate 20 Blood Pressure Blood Pressure Mean Pulse Oximetry 96 96 95 Oxygen Delivery Method Room Air Room Air Room Air Sepsis Recent Fever Within 48 Hours No Sepsis New/Unexplained Change in Mental Status N/A Sepsis Action Taken by Nursing No Action Required 10/13/24 11:21 10/13/24 11:30 10/13/24 11:30 Temperature Temperature Source Pulse Rate 77 Pulse Rate from SpO2 Sensor Respiratory Rate 20 Blood Pressure 170/88 H 170/88 H Blood Pressure Mean 138 138 Pulse Oximetry Oxygen Delivery Method Sepsis Recent Fever Within 48 Hours Sepsis New/Unexplained Change in Mental Status Sepsis Action Taken by Nursing 10/13/24 11:33 10/13/24 11:48 10/13/24 11:57 Temperature Temperature Source Pulse Rate 72 72 105 H Pulse Rate from SpO2 Sensor 73 72 72 Respiratory Rate 20 22 22 Blood Pressure Blood Pressure Mean Pulse Oximetry 97 96 97 Oxygen Delivery Method Sepsis Recent Fever Within 48 Hours Sepsis New/Unexplained Change in Mental Status Sepsis Action Taken by Nursing 10/13/24 12:00 10/13/24 12:00 10/13/24 12:15 Temperature Temperature Source Pulse Rate 94 H Pulse Rate from SpO2 Sensor 70 Respiratory Rate 21 21 Blood Pressure 161/84 H Blood Pressure Mean 113 Pulse Oximetry 97 97 Oxygen Delivery Method Sepsis Recent Fever Within 48 Hours Sepsis New/Unexplained Change in Mental Status Sepsis Action Taken by Nursing 10/13/24 12:24 10/13/24 12:26 10/13/24 12:30 Temperature Temperature Source Pulse Rate 96 H 72 Pulse Rate from SpO2 Sensor 72 Respiratory Rate 19 Blood Pressure 160/93 H Blood Pressure Mean 111 Pulse Oximetry 97 Oxygen Delivery Method Sepsis Recent Fever Within 48 Hours Sepsis New/Unexplained Change in Mental Status Sepsis Action Taken by Nursing 10/13/24 12:36 10/13/24 12:48 10/13/24 13:00 Temperature Temperature Source Pulse Rate 69 73 72 Pulse Rate from SpO2 Sensor 70 71 71 Respiratory Rate 18 16 21 Blood Pressure Blood Pressure Mean Pulse Oximetry 98 98 97 Oxygen Delivery Method Sepsis Recent Fever Within 48 Hours Sepsis New/Unexplained Change in Mental Status Sepsis Action Taken by Nursing 10/13/24 13:00 10/13/24 13:12 10/13/24 13:24 Temperature Temperature Source Pulse Rate 72 74 Pulse Rate from SpO2 Sensor 68 73 Respiratory Rate 15 18 Blood Pressure 184/97 H Blood Pressure Mean 134 Pulse Oximetry 97 96 Oxygen Delivery Method Sepsis Recent Fever Within 48 Hours Sepsis New/Unexplained Change in Mental Status Sepsis Action Taken by Nursing 10/13/24 13:30 10/13/24 13:30 10/13/24 13:30 Temperature Temperature Source Pulse Rate Pulse Rate from SpO2 Sensor Respiratory Rate Blood Pressure 175/81 H 175/81 H 175/81 H Blood Pressure Mean 132 132 132 Pulse Oximetry Oxygen Delivery Method Sepsis Recent Fever Within 48 Hours Sepsis New/Unexplained Change in Mental Status Sepsis Action Taken by Nursing 10/13/24 13:30 10/13/24 13:42 10/13/24 13:51 Temperature Temperature Source Pulse Rate 67 68 77 Pulse Rate from SpO2 Sensor Respiratory Rate 21 14 22 Blood Pressure Blood Pressure Mean Pulse Oximetry 97 96 96 Oxygen Delivery Method Sepsis Recent Fever Within 48 Hours Sepsis New/Unexplained Change in Mental Status Sepsis Action Taken by Nursing 10/13/24 13:57 10/13/24 14:00 10/13/24 14:00 Temperature Temperature Source Pulse Rate 72 Pulse Rate from SpO2 Sensor Respiratory Rate 17 Blood Pressure 167/81 H 167/81 H Blood Pressure Mean 126 126 Pulse Oximetry 96 Oxygen Delivery Method Sepsis Recent Fever Within 48 Hours Sepsis New/Unexplained Change in Mental Status Sepsis Action Taken by Nursing 10/13/24 14:03 10/13/24 14:36 Temperature Temperature Source Pulse Rate 117 H 92 H Pulse Rate from SpO2 Sensor Respiratory Rate 31 H 25 H Blood Pressure Blood Pressure Mean Pulse Oximetry 96 96 Oxygen Delivery Method Sepsis Recent Fever Within 48 Hours Sepsis New/Unexplained Change in Mental Status Sepsis Action Taken by Nursing Laboratory Data 10/13/24 11:23 10/13/24 11:23 Lab Results 10/13/24 10/13/24 Range/Units 11:23 12:43 WBC 7.38 (4.8-10.8) K/ul RBC 3.62 L (4.20-5.40) M/uL Hgb 12.9 (12.0-16.0) g/dl Hct 38.6 (37.0-47.0) % MCV 106.6 H (80.0-100.0) fL MCH 35.6 H (25.0-34.0) pg MCHC 33.4 (32.0-36.0) g/dL RDW Std Deviation 56.4 H (36.4-46.3) fL RDW Coeff of Alo 14.3 (11.5-14.5) % Plt Count 277 (130-400) K/uL MPV 8.6 L (9.4-12.4) fL Immature Gran % (Auto) 0.3 % Neut % (Auto) 65.0 % Lymph % (Auto) 24.1 % [place] % (Auto) 7.3 % Eos % (Auto) 2.8 % Baso % (Auto) 0.5 % Neut # (Auto) 4.79 (1.40-6.50) K/uL Lymph # (Auto) 1.78 (1.20-3.40) K/uL [place] # (Auto) 0.54 (0.11-0.59) K/uL Eos # (Auto) 0.21 (0.00-0.50) K/uL Baso # (Auto) 0.04 (0.00-0.20) K/uL Immature Gran # (Auto) 0.02 (0.01-0.20) K/uL PT 9.8 (9.0-12.0) Seconds INR 0.9 (0.9-1.1) APTT 25 (21-31) Seconds PTT Ratio 0.9 Sodium 137 (136-145) mmol/L Potassium 4.3 (3.5-5.1) mmol/L Chloride 102 (98-107) mmol/L Carbon Dioxide 28 (21-32) mmol/L Anion Gap 7 (3-11) BUN 25 H (6-23) mg/dl Creatinine 0.49 L (0.6-1.2) mg/dl Est Cr Clr Drug Dosing 107.5 ml/min eGFR 99.46 BUN/Creatinine Ratio 51.0 H (10-20) Glucose 104 H (70-99(Fasting)) mg/dl Calcium 9.7 (8.6-10.3) mg/dl Total Bilirubin 0.3 (0.2-1.0) mg/dl AST 21 (13-39) U/L ALT 18 (7-52) U/L Alkaline Phosphatase 83 (34-104) U/L Troponin I High Sens 4.6 5.6 (0-14) pg/ml Total Protein 7.1 (6.0-8.3) gm/dl Albumin 4.4 (3.4-5.0) gm/dl Globulin 2.7 (2.5-4.0) gm/dl Albumin/Globulin Ratio 1.6 (0.9-2) Imaging Data Radiologist's Impression: Chest X-Ray 10/13/24 11:16 XR chest 1V not portable CLINICAL HISTORY: Chest pain, nonspecific COMPARISON STUDY: Chest radiograph July 27, 2024. Chest CT October 01, 2024. FINDINGS: Low lung volumes are unchanged. There is no pneumothorax or pleural effusion. There is no evidence for pulmonary edema. Cardiomegaly is again noted. Linear bibasilar densities represent atelectasis. IMPRESSION: 1. No acute cardiopulmonary findings. 2. Low lung volumes. Bibasilar opacities suggestive of atelectasis. ACT 112: Negative or not required by law. Electronically signed by: Ahsan Mejia M.D. 10/13/2024 11:43 AM Discharge Plan Visit Data Chief Complaint: Cardiac Assessment Stated Complaint: REFERRED BY PCP, CARDIAC SX ED Provider: Oliver Irwin Discharge Problem: Atypical chest pain Patient Disposition: Home - Self-Care Condition: Good Discharge Instructions Paula/Other Patient Handouts: ED [facility] Chest Pain Activity Restrictions/Additional Instructions: Please follow-up with your primary care doctor in 2 to 3 days for reassessment further management. Please follow-up with your cardiology providers as discussed, please call to schedule an appointment to be seen within the next 2 to 3 days. Please return to the ER if you have any new or acutely worsening symptoms. Forms Stand Alone Forms: My [facility], Important Visit Information Prescriptions Prescriptions: No Action cyproheptadine 4 mg Tablet 4 mg PO HS ferrous sulfate 325 mg (65 mg iron) Tablet 325 mg PO Q2D buspirone 10 mg Tablet 10 mg PO .EVERY 8 HRS docusate sodium 100 mg Capsule 100 mg PO AMHS omeprazole 20 mg Capsule,Delayed Release(Dr/Ec) 20 mg PO AMHS folic acid 1 mg Tablet 1 mg PO QAM bupropion HCl [Wellbutrin XL] 150 mg Tablet Extended Release 24 Hr 150 mg PO QAM cholecalciferol (vitamin D3) [Vitamin D3] 5,000 unit Tablet 5,000 unit PO QAM levothyroxine 88 mcg Tablet 88 mcg PO DAILYBB Rx Instructions: before breakfast ondansetron HCl 4 mg tablet 4 mg PO Q6 PRN (Reason: Nausea) meclizine 12.5 mg tablet 12.5 mg PO TID PRN (Reason: Dizziness) valacyclovir 500 mg tablet 500 mg PO QAM vitamin B complex Tablet 1 tab PO DAILY cyanocobalamin (vitamin B-12) [Vitamin B-12] 5,000 mcg Tablet, Sublingual 5,000 mcg SUBLINGUAL DAILY Occommercetools 50 mg-15 unit- 4.5 mg-2.5 mg Tablet,Chewable 1 tab PO DAILY aspirin 81 mg tablet,delayed release (DR/EC) 81 mg PO DAILY 42 Days Qty: 0 0RF acetaminophen 500 mg Tablet 1,000 mg PO Q8 polyethylene glycol 3350 [Miralax] 17 gram powder in packet 17 g PO DAILY tizanidine 2 mg tablet 2 mg PO Q8 calcium carbonate 500 mg calcium (1,250 mg) Tablet 500 mg PO BID atorvastatin 10 mg Tablet 10 mg PO HS multivitamin Tablet 1 tab PO HS nystatin 100,000 unit/gram Cream See Rx Instructions .ROUTE .COMPLEX Rx Instructions: Apply 1 application topically twice a day as needed magnesium oxide 400 mg magnesium Tablet 400 mg PO DAILY atenolol 25 mg Tablet 25 mg PO BID Qty: 60 0RF furosemide 20 mg Tablet 20 mg PO BID Qty: 60 0RF duloxetine [Cymbalta] 30 mg capsule,delayed release(DR/EC) 30 mg PO DAILY Qty: 30 0RF Rx Instructions: Take one tablet daily along with a 60mg daily to = 90mg a day. duloxetine [Cymbalta] 60 mg capsule,delayed release(DR/EC) 60 mg PO DAILY Qty: 30 0RF Rx Instructions: Take one capsule by mouth daily along with a 30mg capsule to = 90mg daily pramipexole 0.5 mg Tablet 0.5 mg PO Q8 Qty: 18 0RF azathioprine 50 mg tablet 100 mg PO QAM losartan 50 mg tablet 50 mg PO DAILY lorazepam 0.5 mg tablet 0.5 mg PO HS PRN (Reason: anxiety/insomnia) Rx Instructions: Per patients daughter- patient received both strengths of lorazepam in the mail and she accidently threw it away- she hasn't had either prescriptions for about 1 month rosuvastatin 10 mg tablet 10 mg PO DAILY Referrals Referrals: Uma Mark DO [Primary Care Provider] -
[2024-10-13 11:38] LABS: Basophils # (auto) 0.04 K/uL (0.00-0.20); Basophils % (auto) 0.5 %; Eosinophils # (auto) 0.21 K/uL (0.00-0.50); Eosinophils % (auto) 2.8 %; Hematocrit (blood only) 38.6 % (37.0-47.0); Hemoglobin 12.9 g/dl (12.0-16.0); Immature Granulocytes # (auto) 0.02 K/uL (0.01-0.20); Immature Granulocytes % (auto) 0.3 %; Lymphocytes # (auto) 1.78 K/uL (1.20-3.40); Lymphocytes % (auto) 24.1 %; Mean Corpuscular Hemoglobin 35.6 pg (25.0-34.0); Mean Corpuscular Hgb Conc 33.4 g/dL (32.0-36.0); Mean Corpuscular Volume 106.6 fL (80.0-100.0); Mean Platelet Volume 8.6 fL (9.4-12.4); Monocytes # (auto) 0.54 K/uL (0.11-0.59); Monocytes % (auto) 7.3 %; Neutrophils # (auto) 4.79 K/uL (1.40-6.50); Platelet Count 277 K/uL (130-400); RDW Coefficient of Variation 14.3 % (11.5-14.5); RDW Standard Deviation 56.4 fL (36.4-46.3); Red Blood Count 3.62 M/uL (4.20-5.40); White Blood Count 7.38 K/ul (4.8-10.8)
--- NOTE | 2024-10-13 11:44 | XRay Report ---
XR chest 1V not portable CLINICAL HISTORY: Chest pain, nonspecific COMPARISON STUDY: Chest radiograph July 27, 2024. Chest CT October 01, 2024. FINDINGS: Low lung volumes are unchanged. There is no pneumothorax or pleural effusion. There is no e vidence for pulmonary edema. Cardiomegaly is again noted. Linear bibasilar densities represent atelec tasis. IMPRESSION: 1. No acute cardiopulmonary findings. 2. Low lung volumes. Bibasilar opacities suggestive of atelectasis. ACT 112: Negative or not required by law. Electronically signed by: Ahsan Mejia M.D. 10/13/2024 11:43 AM
--- NOTE | 2024-10-13 11:52 | Electrocardiogram Report ---
Test Reason : Blood Pressure : */* mmHG Vent. Rate : 77 BPM Atrial Rate : 77 BPM P-R Int : 172 ms QRS Dur : 130 ms QT Int : 414 ms P-R-T Axes : 36 -19 19 degrees QTcB Int : 468 ms Normal sinus rhythm Right bundle branch block Minimal voltage criteria for LVH, may be normal variant Abnormal ECG When compared with ECG of 07-Mar-2024 11:57, T wave inversion less evident in Anterolateral leads Confirmed by Jordon Guallpa ([id number]) on 10/13/2024 11:52:13 AM Referred By: Confirmed By: Jordon Guallpa
[2024-10-13 11:53] LABS: Albumin Globulin Ratio 1.6 (0.9-2); Albumin Level 4.4 gm/dl (3.4-5.0); Bilirubin,Total 0.3 mg/dl (0.2-1.0); Calcium 9.7 mg/dl (8.6-10.3); Creatinine Clr Calc Pharmacy 107.5 ml/min; Globulin 2.7 gm/dl (2.5-4.0); Potassium 4.3 mmol/L (3.5-5.1); Total Protein 7.1 gm/dl (6.0-8.3)
[2024-10-13 11:59] LABS: Troponin I High Sensitivity 4.6 pg/ml (0-14)
[2024-10-13 12:04] LABS: INR 0.9 (0.9-1.1); Partial Thromboplastin Ratio 0.9; Partial Thromboplastin Time 25 Seconds (21-31); Prothrombin Time 9.8 Seconds (9.0-12.0)
--- NOTE | 2024-10-13 14:40 | History & Physical Report ---
Date of Service October 13, 2024 Assessment & Plan (1) Atypical chest pain: (2) HTN (hypertension): (3) Dyslipidemia: (4) Polymyositis: Plan 73-year-old female who has a significant PMHx of polymyositis, HTN, HLD, hypothyroidism, RLS, major depressive disorder, PTSD, anxiety and history of GERD who presented to ED secondary to Chest pain. Atypical Chest Pain admit to PCU for observation outpt resting echo with preserved EF and w/o WMA given atypical sx pt to be admitted for nuclear stress test in a.m. Cardiology is aware and the nuclear dose has already been ordered cardiology will not be formally consulted at this time cycle trops, a1c, lipid panel in a.m. continue asa, crestor HTN: chronic, bp elevated in ED likely in setting of anxiety, on losartan, lasix and atenolol, monitor HLD: chronic, stable continue statin Depression/PTSD/Anxiety: continue duloxetine, buspar, wellbutrin, prn lorazepam DVT ppx: SCDS for now, pt with some brbpr from hemorrhoids, if to be hospitalized > 24hrs implement vte ppx DNR/DNI Dispo: admit to pcu under obs for acs r/o PCP: Hien Mark Pt was seen and examined in collaboration with Dr. Meehan, please see addendum I spent a total of 69 minutes coordinating, documenting and providing care for this patient excluding time spent in the performance of separately billed services or time spent by another provider/QHP. History of Present Illness Chief Complaint: Chest pain off and on x 1 month Primary Care Provider: Uma Mark, 73-year-old female who has a significant PMHx of polymyositis, HTN, HLD, hypothyroidism, RLS, major depressive disorder, PTSD, anxiety and history of GERD who presented to ED secondary to Chest pain. External chart review was performed. Pt was recently seen in outpt setting due to complaints of chest pain, weakness and body vibrations. Lab work up revealed an elevated troponin and d-dimer. She had a CTA Chest which was negative for PE. She had a resting echo which showed preserved EF w/o WMA. She was planning to get an outpt stress test in the future. She reports chest pain with activity that is located on the left side of her chest and radiates under her left arm. Yesterday her pain was so severe it made her cough. She states it lasts for seconds and then it goes away. " I want to know why I feel the way I do." She feels her Right leg is more swollen that her left. She complains of tingling/neuropathy pain when legs are touch but this is chronic for her. She does have SOB with minimal exertion that has been ongoing. She reports having hemorrhoids in the past and recently had an episode of BRBPR. She denies any recent falls. She walks with a walker. She denies any alcohol use and admits to being alcohol free for a few uses to support her son who is sober for 6 years. She denies any tobacco use. In ED pt remained hemodynamically stable. Her ECG was w/o ischemic change and trop was negative. Allergies Allergy/AdvReac Type Severity Reaction Status Date / Time diphenhydramine Allergy Intermediate Hallucinati Verified 02/25/24 17:04 [From Benadryl] ng morphine AdvReac Severe Low BP Verified 02/25/24 17:04 gabapentin AdvReac Intermediate swelling Verified 02/25/24 17:04 of lower legs lisinopril AdvReac Intermediate Cough Verified 02/25/24 17:04 pregabalin [From Lyrica] AdvReac Intermediate sweating/ho Verified 02/25/24 17:04 t Home Medications Medication Instructions Recorded Confirmed Type bupropion HCl 150 mg 24 hr tablet, 150 mg PO QAM 07/11/19 10/13/24 History extended release (Wellbutrin XL) buspirone 10 mg tablet 10 mg PO .EVERY 8 HRS 07/11/19 10/13/24 History cholecalciferol (vitamin D3) 125 5,000 unit PO QAM 07/11/19 10/13/24 History mcg (5,000 unit) tablet (Vitamin D3) cyproheptadine 4 mg tablet 4 mg PO HS 07/11/19 10/13/24 History docusate sodium 100 mg capsule 100 mg PO AMHS 07/11/19 10/13/24 History ferrous sulfate 325 mg (65 mg 325 mg PO Q2D 07/11/19 10/13/24 History iron) tablet folic acid 1 mg tablet 1 mg PO QAM 07/11/19 10/13/24 History omeprazole 20 mg capsule,delayed 20 mg PO AMHS 07/11/19 10/13/24 History release levothyroxine 88 mcg tablet 88 mcg PO DAILYBB 08/19/22 10/13/24 History meclizine 12.5 mg tablet 12.5 mg PO TID PRN Dizziness 01/22/23 10/13/24 History ondansetron HCl 4 mg tablet 4 mg PO Q6 PRN Nausea 01/22/23 10/13/24 History valacyclovir 500 mg tablet 500 mg PO QAM 01/22/23 10/13/24 History azathioprine 50 mg tablet 100 mg PO QAM 11/25/23 10/13/24 History cyanocobalamin (vitamin B-12) 5,000 mcg sublingual DAILY 02/25/24 10/13/24 History 5,000 mcg sublingual tablet (Vitamin B-12) vit C 50 mg-E 15 unit-zinc cit 4.5 1 tab PO DAILY 02/25/24 10/13/24 History mg-lutein 2.5 mg-zeaxan chew tablet ([facility]) vitamin B complex 1 tab PO DAILY 02/25/24 10/13/24 History aspirin 81 mg tablet,delayed 81 mg PO DAILY 42 days #0 tabs 02/29/24 10/13/24 Rx release acetaminophen 500 mg tablet 1,000 mg PO Q8 03/07/24 10/13/24 History atorvastatin 10 mg tablet 10 mg PO HS 03/07/24 10/13/24 History calcium carbonate 500 mg PO BID 03/07/24 10/13/24 History magnesium oxide 400 mg PO DAILY 03/07/24 10/13/24 History multivitamin 1 tab PO HS 03/07/24 10/13/24 History nystatin 100,000 unit/gram topical See Rx Instructions .Route .COMPLEX 03/07/24 10/13/24 History cream polyethylene glycol 3350 17 gram 17 g PO DAILY constipation 03/07/24 10/13/24 History oral powder packet (Miralax) tizanidine 2 mg tablet 2 mg PO Q8 03/07/24 10/13/24 History atenolol 25 mg tablet 25 mg PO BID #60 tabs 03/17/24 10/13/24 Rx furosemide 20 mg tablet 20 mg PO BID #60 tabs 03/17/24 10/13/24 Rx duloxetine 30 mg capsule,delayed 30 mg PO DAILY #30 caps 03/18/24 10/13/24 Rx release (Cymbalta) duloxetine 60 mg capsule,delayed 60 mg PO DAILY #30 caps 03/18/24 10/13/24 Rx release (Cymbalta) pramipexole 0.5 mg tablet 0.5 mg PO Q8 #18 tabs 07/28/24 10/13/24 Rx lorazepam 0.5 mg tablet 0.5 mg PO HS PRN anxiety/insomnia 10/13/24 10/13/24 History losartan 50 mg tablet 50 mg PO DAILY 10/13/24 10/13/24 History rosuvastatin 10 mg tablet 10 mg PO DAILY 10/13/24 10/13/24 History Past Med/Surg History Problem List Atypical chest pain (Acute) Hallucinations (Acute) Periprosthetic fracture around internal prosthetic knee joint (Acute) Cellulitis of right leg (Acute) Laceration of left knee (Acute) Fracture of proximal end of left tibia (Acute) Fall (Acute) Fracture of proximal end of right tibia (Acute) Right tibial fracture Avulsion fracture of lateral condyle of left tibia 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 Encounter for pre-operative examination Hallucinations, visual (Acute) Acute confusion (Acute) AMS (altered mental status) Fall Status post left knee replacement (~09/2022) Arthritis Chronic pain Hyponatremia (Acute) Hx RLS (restless legs syndrome) Closed fracture of right distal femur 2019 no surgery Anemia (Chronic) Anxiety (Chronic) Gastroparesis (Chronic) GERD (gastroesophageal reflux disease) (Chronic) controlled symptoms per pt Medical History Acute dehydration Insomnia Restless leg syndrome Noncompliance with medications Chronic hyponatremia Post traumatic stress disorder (PTSD) Polypharmacy Myopathy Osteoarthritis Polymyositis MTX Depression Hypothyroidism Dyslipidemia HTN (hypertension) controlled, stable per pt Seasonal allergies Chronic rhinitis Hiatal hernia h/o of repair in past, and has at present too Neuropathy feet Refusal of blood product d/t evangelical beliefs Elevated hemidiaphragm right Dysphagia worse with meat, happens on occasion Interstitial lung disease Follows with Dr. Eid/XANDER Hx of migraines History of COVID-19 08/2020, loss taste/smell, body aches, sinus issues > resolved (after sinus surgery) none since History of carotid artery disease mild bilateral intracranial ICA stenoses-head MRA 02/2022 Diverticulitis Hx, 2018 Surgical History Hx of cataract extraction Hx of right cataract extraction will see Dr Huff 08/28/23 for F/U H/O hemorrhoidectomy History of tubal ligation Nausea and vomiting after administration of anesthetic agent Years ago, denies needing scop patch History of esophagogastroduodenoscopy (EGD) Hx of colonoscopy Hx of squamous cell carcinoma excision Excision (head) History of back surgery lumbar Family History Other No significant family history Social History Smoking Status: Former smoker Second Hand Exposure: Yes (in past); Do You Dip or Chew Tobacco: No; Hx Alcohol Use: No Hx Substance Use: No Preferred Language: Urdu Communication Ability: Effective Associate Medical Director Required: No Beliefs That Will Affect Care: None Current Living Situation: Alone Current Living Situation Comment: From [facility] Other Information That Helps Us Care for You: No Feels Safe at Home: Yes Assistive Devices: Walker Review of Systems Review of Systems: All systems reviewed & are unremarkable except as noted in HPI & below Physical Exam Physical Exam: please refer to Dr. Meehan addendum for physical exam findings. Results & Data Results & Data Vital Signs (Past 12 Hours) Vital Signs Temp Pulse Resp BP Pulse Ox O2 Del Method 10/13/24 12:26 72 10/13/24 12:15 21 97 10/13/24 12:00 94 H 21 97 10/13/24 12:00 161/84 H 10/13/24 11:57 105 H 22 97 10/13/24 11:48 72 22 96 10/13/24 11:33 72 20 97 10/13/24 11:30 170/88 H 10/13/24 11:30 170/88 H 10/13/24 11:21 77 20 10/13/24 11:17 95 Room Air 10/13/24 11:11 96 Room Air 10/13/24 11:11 36.6 C 93 H 20 96 Room Air Laboratory Results I have independently reviewed and interpreted patient's admitting labs including CBC, CMP, PTT, PT/INR, and troponin. Diagnostic Findings Chest X-Ray 10/13/24 11:16 XR chest 1V not portable CLINICAL HISTORY: Chest pain, nonspecific COMPARISON STUDY: Chest radiograph July 27, 2024. Chest CT October 01, 2024. FINDINGS: Low lung volumes are unchanged. There is no pneumothorax or pleural effusion. There is no evidence for pulmonary edema. Cardiomegaly is again noted. Linear bibasilar densities represent atelectasis. IMPRESSION: 1. No acute cardiopulmonary findings. 2. Low lung volumes. Bibasilar opacities suggestive of atelectasis. ACT 112: Negative or not required by law. Electronically signed by: Ahsan Mejia M.D. 10/13/2024 11:43 AM ECG Additional Comments: I have independently reviewed and interpreted patient's admitting EKG which revealed: 77nsr , rbbb, no ischemic changes COVID-19 Results Results COVID-19 Adm Lab Results: RBC 3.62 M/uL (4.20-5.40) L 10/13/24 WBC 7.38 K/ul (4.8-10.8) 10/13/24 Hgb 12.9 g/dl (12.0-16.0) 10/13/24 Hct 38.6 % (37.0-47.0) 10/13/24 Plt Count 277 K/uL (130-400) 10/13/24 Neutrophils (%) (Auto) 65.0 % 10/13/24 Lymphocytes (%) (Auto) 24.1 % 10/13/24 Monocytes # (Auto) 0.54 K/uL (0.11-0.59) 10/13/24 Eosinophils # (Auto) 0.21 K/uL (0.00-0.50) 10/13/24 Immature Granulocyte % (Auto) 0.3 % 10/13/24 Neutrophils # (Auto) 4.79 K/uL (1.40-6.50) 10/13/24 Lymphocytes # (Auto) 1.78 K/uL (1.20-3.40) 10/13/24 Monocytes # (Auto) 0.54 K/uL (0.11-0.59) 10/13/24 Eosinophils # (Auto) 0.21 K/uL (0.00-0.50) 10/13/24 Basophils # (Auto) 0.04 K/uL (0.00-0.20) 10/13/24 Immature Granulocyte # (Auto) 0.02 K/uL (0.01-0.20) 5 Na 137 mmol/L (136-145) 10/13/24 K 4.3 mmol/L (3.5-5.1) 10/13/24 Cl 102 mmol/L (98-107) 10/13/24 CO2 28 mmol/L (21-32) 10/13/24 Anion Gap 7 (3-11) 10/13/24 BUN 25 mg/dl (6-23) H 10/13/24 Creatinine 0.49 mg/dl (0.6-1.2) L 10/13/24 BUN/Creatinine Ratio 51.0 (10-20) H 10/13/24 Glucose Level 104 mg/dl (70-99(Fasting)) H 10/13/24 Ca 9.7 mg/dl (8.6-10.3) 10/13/24 Total Bilirubin 0.3 mg/dl (0.2-1.0) 10/13/24 AST/SGOT 21 U/L (13-39) 10/13/24 ALT/SGPT 18 U/L (7-52) 10/13/24 Alkaline Phosphatase 83 U/L (34-104) 10/13/24 Total Protein 7.1 gm/dl (6.0-8.3) 10/13/24 Albumin 4.4 gm/dl (3.4-5.0) 10/13/24 Globulin 2.7 gm/dl (2.5-4.0) 10/13/24 Albumin/Globulin Ratio 1.6 (0.9-2) 10/13/24 PTT 25 Seconds (21-31) 10/13/24 INR 0.9 (0.9-1.1) 10/13/24 Chest X-Ray 10/13/24 Code Status & VTE Plan Code Status FULL CODE VTE Prophylaxis Plan VTE Prophylaxis will be ordered: Yes Supervising Physician Co-Signing Physician Notes I have seen and discussed the case with the collaborating advanced practitioner. I agree with the above H&P. I have reviewed and confirmed the patients medical history, the findings on physical examination, and the patients diagnosis and treatment plan with Sho and agree with the information documented. In short, Ms. Christian is being admitted for chest pain evaluation. Patient with 2 months of SOB and KING. Recently underwent CTA which was negative for embolus and op trop elevated. On arrival, labs overal stable with negative trop. Patient with concerns of ongoing fatigue and bleeding hemorrhoid GENERAL APPEARANCE: AxOx4, generally well-appearing F, SOB when trying to adjust in bed HEENT: NC, AT. MMM. EOMI, clear conjunctiva, oropharynx clear. NECK: Supple without lymphadenopathy. No stiffness or restricted ROM. HEART: Normal rate and regular rhythm, normal S1/S1, no m/r/g LUNGS: CTAB, moving air well. No crackles or wheezes are heard. ABDOMEN: Soft, nontender, nondistended with good bowel sounds heard. : Anus examined, small hemorrhoid with appearance of recent bleed/dried blood. EXTREMITIES: Without cyanosis, clubbing or edema. NEUROLOGICAL: Grossly nonfocal. Alert and oriented, moving all 4 extremities. CN not formally tested but appear grossly intact. Skin: Warm and dry without any rash. #Atypical Chest Pain #KING patient with elevated trop as on OP, but trop on admission negative thus far x 2 continue home meds ECHO as OP stable Plan for stress test in am #Reported ILD seemingly not a true diagnosis per Pulm follow up in 12/2023 PFTs without true restriction, but does have reduced MIP and MEP (attribute to obesity and underlying polymyositis). CT scan findings likely related to hypoventilation/atelectasis secondary to Neuro muscular disease/polymyositis related ventilatory limitation # GERD with esophageal dysphagia Continue PPI #Polymyositis Continue following with rheumatology Continue Azathioprine #Hemorrhoids hydrocortisone cream I spent a total of 20 minutes coordinating, documenting, and providing care for this patient excluding time spent in the performance of separately billed services. All of the aforementioned completed outside of collaborating with the assigned advanced practitioner for a full treatment plan. I have reviewed the advanced practitioner's documentation, and I agree with, and take responsibility for the plan of care (2) HTN (hypertension) Hypertension type: unspecified secondary hypertension Qualified Code(s): I15.9 - Secondary hypertension, unspecified
--- OUTSIDE RECORDS SUMMARY | 2024-10-13 16:16 | External Medical Summary | Summary of Care ---
Author Name Unknown Organization [facility] Address [address] [place] [address] Phone [phone] Care Team Providers Care Radar Mechanic Name Role Phone Otonieljose Umahallie Stanford DO Primary Care Provider Reason for Visit * Reason Onset Date Comments Appointment 09/16/2024 Request appt Encounter Details Date Type Department Care Team (Late st Contact Info) Description 09/16/2024 Telephone Rheumatology [facility] [address] [place] [address] Lance Castanon CRNP [address] [facility] [place] [address] Appointment (Request appt) Allergies Active Allergy Reactions Criticality Noted Date Comments Diphenhydramine 06/12/2023 HALLUCINATIONS. Gabapentin 10/10/2022 Retained fluid Lisinopril Cough 08/09/2019 Pregabalin Other (Please comment) 02/14/2023 Hot all over " I felt like I was on fire inside and out" Morphine Sulfate 07/19/2010 Lowers her blood pressure documented as of this encounter (statuses as of 10/04/2024) Medications CALCIUM 600 600 MG PO TABSIndications:in pm Take by mouth. Activ e OCUVITE EXTRA PO TABS once daily 013 Active ECOTRIN LOW STRENGTH 81 MG PO TBEC One pill by mouth once a day 100 Tab 5 014 Active Cyanocobalamin 1000 MCG Oral TabletIndications: at lunchtime Take 1 Tablet by mouth in the morning. 016 Active Magnesium 250 MG Tablet Take 1 Tablet by mouth in the morning. Active Cholecalciferol (VITAMIN D-3) 5000 units Tablet Take 1 Tablet by mouth in the morning. Active Docusate Sodium 100 MG Oral Capsule Take 1 Capsule by mouth in the morning and 1 Capsule before bedtime. Active Amoxicillin 500 MG Oral Capsule (Amoxil) 021 Active buPROPion HCl ER (SR) 150 MG Oral Tablet Extended Release 12 Hour (Wellbutrin SR) Take 1 Tablet by mouth in the morning. In the morning.. 30 Tablet 1 023 Active Lysine 500 MG Oral Tablet Take by mouth. Activ e Cyproheptadine HCl 4 MG Oral Tablet (Periactin)Indicat ions:in evening 1 tablet daily 90 Tablet 5 023 Active busPIRone HCl 10 MG Oral Tablet (Buspar)Indication s:Anxiety state,Adjustment disorder with depressed mood TAKE 1 TABLET BY MOUTH IN THE MORNING, AT NOON, AND BEFORE BEDTIME 20 Tablet 024 Active Atenolol 25 MG Oral Tablet (Tenormin)Indicati ons:HTN, goal below 140/90 TAKE 1 TABLET IN THE MOring and in the evening 180 Tablet 1 024 Active Nystatin 425221 UNIT/GM External Powder (Nystop)Indication s:Damari rash of groin Apply topically to affected area 3 times a day. Apply to under breast, stomach, between legs 15 g 3 024 Active Folic Acid 1 MG Oral Tablet TAKE 1 TABLET BY MOUTH EVERY DAY IN THE MORNING 90 Tablet 1 024 Active Rosuvastatin Calcium 10 MG Oral Tablet (Crestor)Indicatio ns:Hyperlipidemia Take 1 Tablet by mouth in the morning. 90 Tablet 3 024 Active tiZANidine HCl 2 MG Oral Tablet (Zanaflex) Take 1-2 tablets by mouth at night as needed for pain or muscle spasm and tightness 180 Tablet 3 024 Active DULoxetine HCl 30 MG Oral Capsule Delayed Release Particles (Cymbalta) Take 1 Capsule by mouth in the morning. 90 Capsule 3 024 Active DULoxetine HCl 60 MG Oral Capsule Delayed Release Particles (Cymbalta) Take 1 Capsule by mouth in the morning. 90 Capsule 2 024 Active Losartan Potassium 50 MG Oral Tablet (Cozaar)Indication s:HTN, goal below 140/90 Take 1 Tablet by mouth in the morning. 024 Active Furosemide 20 MG Oral Tablet (Lasix)Indications :Hyponatremia Take 2 Tablets by mouth daily AND 1 Tablet every afternoon. Active Loratadine 10 MG Oral Tablet (Claritin)Indicati ons:Other chronic sinusitis TAKE 1 TABLET BY MOUTH EVERY DAY IN THE MORNING 90 Tablet 1 024 Active Ondansetron HCl 4 MG Oral Tablet (Zofran)Indication s:Nausea Take 1 Tablet by mouth every 6 hours as needed for Nausea. 60 Tablet 1 024 Active Meclizine HCl 12.5 MG Oral Tablet (Antivert) Take 1 Tablet by mouth 3 times a day as needed for Dizziness. 45 Tablet 1 024 Active LORazepam 0.5 MG Oral Tablet (Ativan)Indication s:Anxiety Take 1 Tablet by mouth at bedtime as needed for Insomnia. 30 Tablet 024 Active Ferrous Sulfate 325 (65 Fe) MG Oral Tablet (Feosol) TAKE 1 TABLET BY MOUTH EVERY OTHER DAY 45 Tablet 024 Active Diclofenac Sodium 1 % External Gel (Voltaren) APPLY TO AFFECTED AREA 4 TIMES A DAY 100 g 1 Active valACYclovir HCl 500 MG Oral Tablet (Valtrex)Indicatio ns:Oral ulcer TAKE 1 TABLET BY MOUTH IN THE MORNING. FOR TRANSMISSION REDUCTION. 90 Tablet 1 Active Pramipexole Dihydrochloride 0.5 MG Oral Tablet Take 1 Tablet by mouth in the morning and 1 Tablet at noon and 1 Tablet before bedtime. 180 Tablet 3 024 Active Omeprazole 20 MG Oral Capsule Delayed Release (PriLOSEC)Indicati ons:Gastroesophage al reflux disease without esophagitis TAKE 1 CAPSULE IN THE MORNING AND 1 CAPSULE BEFORE BEDTIME (DOSE INCREASE) 180 Capsule 2 024 Active Levothyroxine Sodium 88 MCG Oral Tablet (Levoxyl)Prabhutio ns:Hypothyroidism TAKE 1 TABLET BY MOUTH EVERY MORNING ON AN EMPTY STOMACH 90 Tablet 3 023 2024 Discontinued azaTHIOprine 50 MG Oral Tablet (Imuran) Take 2 Tablets by mouth in the morning. 180 Tablet 2 024 2024 Discontinued Pramipexole Dihydrochloride 0.25 MG Oral Tablet (Mirapex)Indicatio ns:Restless legs syndrome Take 1 Tablet by mouth in the morning and 1 Tablet at noon and 1 Tablet before bedtime. 270 Tablet 1 024 2024 Discontinued(P atient preference/dis continuation) documented as of this encounter (statuses as of 10/04/2024) Active Problems Problem Noted Date Diagnosed Date Pain in both feet 05/30/2023 Food insecurity 03/31/2023 Overview: Per [facility] Protocol ILD (interstitial lung disease) 04/12/2021 History of squamous cell carcinoma in situ 11/17 Ground glass opacity present on imaging of [...] BMI 35-39 ISOLATED (SEE ACTUAL BMI) 03/05/2010 Overview (03/05/2010): Per Obesity Protocol, #19 HTN, GOAL BELOW 140/90 08/10/2009 Overview (08/10/2009): Modified per HTN protocol #16. Other chronic sinusitis 09/23/2005 Overview (08/31/2008): Dr. Tenorio Allergic rhinitis 09/23/2005 Overview (08/31/2008): Dr. Tenorio Acquired hypothyroidism Osteoarthritis of knee Osteoarthritis of hip Anxiety state Diverticulitis large intesti ne w/o perforation or abscess w/o bleeding Hyperlipidemia with target LDL less than 160 Overview (01/22/2016): ICD-10 update of inactive term documented as of this encounter (statuses as of 10/04/2024) Resolved Problems Problem Noted Date Diagnosed Date Resolved Date Occupational exposure in workplace 04/12/2021 01/28/2023 Prediabetes 05/01/2020 11/30/2020 Overview: Per Prediabetes protocol ILD (interstitial lung disease) 10/08/2019 03/23/2020 Major depressive disorder, s ruma episode, unspecified 10/08/2019 09/28/2024 KING (dyspnea on exertion) 10/01/2019 Adenomatous colon polyp 05/21/201611/21 Kidney disease, chronic, sta ge III (GFR 30-59 ml/min) 02/10/2012 06/15/2013 Overview (02/13/2012): Per CKD protocol #1 Encounter for long-term (cur rent) use of medications 02/21/2011 04/04/2021 Overview (07/15/2017): ICD-10 update of inactive term HTN, GOAL BELOW 140/90 08/10/200905/14 Overview (08/10/2009): Modified per HTN protocol #16. ADVANCE DIRECTIVE INFORMATION 05/17/2009 07/26/2024 Overview (05/17/2009): Yes, Patient instructed to provide copy of advance directive for provider to review and to be scanned into Electronic Medical Record Sleep behavior disorder, REM 12/10/2018 Adjustment disorder with depressed mood 07/18/2020 Dyslipidemia, goal to be determined 12/14/2013 HTN, goal to be determined 1 10/14/2008 Overview (08/14/2009): Modified per HTN protocol #16. HTN, goal to be determined 1 10/14/2008 Overview (08/14/2009): Modified per HTN protocol #16. documented as of this encounter (statuses as of 10/04/2024) Immunizations Name Administration Dates Next Due COVID-19 [...] the money to buy more. Never true 09/28/19 25 Within the past 12 months, t he food you bought just didn't last and you didn't have money to get more. Never true 09/28/2024 Childcare Answer Date Recorded Do you feel overwhelmed with taking care of a child, family member or friend? No 09/28/2024 Does your family need help f inding childcare? (Household - for ages 0-17 years) Not on file 09/28/2024 Clothing Answer Date Recorded Have you been unable to get clothing when it was really needed? No 09/28/2024 Is your family able to get c lothes or diapers when needed? (Household - for ages 0-17 years) Not on file 09/28/2024 Personal Safety Answer Date Recorded Do you feel unsafe or have concerns for your saf ety? No 09/28/2024 Do you have concerns for you r family's safety? (Household - for ages 0-17 years) Not on file 09/28/2024 Utilities Answer Date Recorded Do you have trouble paying y our heating, water, or electric bill? No 09/28/2024 Is your family able to pay t he heat, water, or electric bill? (Household - for ages 0-17 years) Not on file 09/28/2024 Does your family have access to good internet? (Household - for ages 0-17 years) Not on file 09/28/2024 Employment Status Answer Date Recorded Are you unemployed or without regular income? No 09/28/2024 Does the household have a re gular source of income? (Household - for ages 0-17 years) Not on file 09/28/2024 Social Connections Answer Date Recorded How often do you feel lonely or isolated from th ose around you? Never 09/28/2024 Financial Resource Strain Answer Date R ecorded Do you have any trouble payi ng for your medications, or do you think you might in the future? No 09/28/2024 Does your family have troubl e paying for medicine? (Household - for ages 0-17 years) Not on file 09/28/2024 Transportation Needs Answer Date Record ed Do you have trouble getting a ride to medical visits or work? (Adult - for ages 18 years and over) Not on file 09/28/2024 Does your family have a hard time getting a ride to doctors visits? (Household - for ages 0-17 years) Not on file 09/28/2024 Has lack of transportation k ept you from medical appointments, meetings, work, or from getting things needed for daily living? Check all that apply. No 09/28/2024 Do you (or your family) have trouble finding or paying for a ride (transportation)? (Household - for ages 0-17 years) Not on file 09/28/2024 Housing Stability Answer Date Recorded Do you currently live in a s helter or have no steady place to sleep at night? No 09/28/2024 Do you think you are at risk of becoming homeless? (Adult - for ages 18 years and over) Not on file 09/28/2024 Does your family worry about paying for your home or becoming homeless? (Household - for ages 0-17 years) Not on file 0 09/28/2024 Are you homeless or worried that you might be in the future? No 09/28/2024 Are you (or your family) mitra eless or worried that you might be in the future? (Household - for ages 0-17 years) Not on file Food Insecurity Answer Date Recorded Do you need food for this week? No 09/28/2024 Are you able to get enough f ood for your family? (Household - for ages 0-17 years) Not on file 09/28/2024 Does your family need food t his week? (Household - for ages 0-17 years) Not on file 09/28/2024 Do you always have enough fo od for your family? (Household - for ages 0-17 years) Not on file 09/28/2024 Comments No Sex and Gender Information Value Date Recorded Sex Assigned at Female 05/03/2019 2:11 PM EDT Legal Sex Female 7:02 AM EST Gender Identity Female 05/03/2019 2:11 PM EDT Sexual Orientation Straight 03/06/2023 8: 56 AM EDT Occupation Industry Job Start Date Job End Date retired Not on file Not on file Not on file documented as of this encounter Miscellaneous Notes * Telephone Encounter - Dianelys Burroughs OSA - 10/04/2024 9:19 AM EST Scheduled Oct 28 * Telephone Encounter - Dianelys Burroughs OSA - 09/16/2024 1:13 PM EST Called patient and told her some appointments will be opening up for October 28 that are on hold. Patient is going to call back the end of September to see if there is anything available. * Telephone Encounter - Lance Castanon CRNP - 09/16/2024 12:46 PM EST I do not have any available appts that day. Please assist. * Telephone Encounter - Kae Love OSA - 09/16/2024 11:30 AM EST Patient of Lance's calling to see if she would be able to see her in the morning on September 29, 2024. Her daughter is able to do the morning and not afternoon that day. Please advise documented in this encounter Plan of Treatment Upcoming Encounters Date Type Department Care Team (Latest Contact Info) Description 10/08/2024 8:45 AM EST Cardiac Studies [address] [place] [phone] 10/14/2024 7:00 AM EST Imaging Radiology [facility] 1st Floor, [place] [address] [place] [address] 10/28/2024 2:00 PM EST Office Visit Rheumatology [facility] [address] [place] [phone] Lance Castanon CRNP [address] [facility] [place] [address] 11/10/2024 1:00 PM EST Telemedicine Pharmacy, [facility] [address] [place] [address] [facility] [address] [place] [address] 11/11/2024 10:00 AM EST Imaging [facility] 2nd Floor Cardiology, [place] [address] [place] [address] Gw, Excess Time Radiology [address] [place] [address] 12/06/2024 9:15 AM EDT Hospital Encounter OR [facility], Operating Room [facility] [address] [place] [phone] Natan Collins, DO [address] [place] [address] 12/06/2024 9:15 AM EDT - 12/06/2024 9:40 AM EDT Surgery OR [facility], Operating Room [facility] [address] [place] [address] Natan Collins, DO [address] [place] [address] L-/S-SPINE PARAVERTEBRAL FACET INJ, 1 LEVEL 12/20/2024 9:15 AM EDT Hospital Encounter OR [facility], Operating Room [facility] [address] [place] [address] Natan Collins, DO [address] [place] [address] 12/20/2024 9:15 AM EDT - 12/20/2024 9:40 AM EDT Surgery OR [facility], Operating Room [facility] [address] [place] [address] Natan Collins, DO [address] [place] [phone] L-/S-SPINE PARAVERTEBRAL FACET INJ, 1 LEVEL 12/27/2024 2:40 PM EDT Office Visit Nephrology, [facility] [address] [facility] [place] [address] Brigido Francis MD [address] [facility] [place] [address] 12/28/2024 3:00 PM EDT Office Visit Pulmonary Medicine, [facility] [address] [place] [address] Bryant Dawson MD [address] [place] [address] 12/29/2024 10:00 AM EDT Office Visit Rheumatology [facility] [address] [place] [phone] Lance Castanon CRNP [facility] [place] [address] 01/03/2025 7:35 AM EDT Hospital Encounter OR [facility], Operating Room [facility] [address] [place] [phone] Natan Collins, DO [address] [place] [address] 01/03/2025 7:35 AM EDT - 01/03/2025 8:25 AM EDT Surgery OR [facility], Operating Room [facility] [address] [place] [address] Natan Collins, DO [address] [place] [address] DESTROY LUMBAR SACRAL NERVE IMAGING SINGLE 04/01/2025 8:30 AM EDT Office Visit [facility] [address] [facility] [place] [phone] Uma Mark, DO [address] [place] [address] Scheduled Procedures Name Priority Associated Diagnoses Date/Ti me L-/S-SPINE PARAVERTEBRAL FACET INJ, 1 LEVEL Spondylosis of lumbar region without myelopathy or radiculopathy 12/06/2024 9:15 AM EDT L-/S-SPINE PARAVERTEBRAL FACET INJ, 2 LEVELS Spondylosis of lumbar region without myelopathy or radiculopathy 12/06/2024 9:15 AM EDT L-/S-SPINE PARAVERTEBRAL FACET INJ, 1 LEVEL Spondylosis of lumbar region without myelopathy or radiculopathy 12/20/2024 9:15 AM EDT L-/S-SPINE PARAVERTEBRAL FACET INJ, 2 LEVELS Spondylosis of lumbar region without myelopathy or radiculopathy 12/20/2024 9:15 AM EDT DESTROY LUMBAR SACRAL NERVE IMAGING SINGLE Spondylosis of lumbar region without myelopathy or radiculopathy 01/03/2025 7:35 AM EDT DESTROY LUMBAR SACRAL NERVE IMAGING ADD'L Spondylosis of lumbar region without myelopathy or radiculopathy 01/03/2025 7:35 AM EDT COLONOSCOPY FLEXIBLE PROXIMAL DIAGNOSTIC Recall History of colon polyps Health Maintenance Due Date Last Done Comments Cologuard 1996 Fecal Occult Blood Test 1996 Sigmoidoscopy 1996 Adult Wellness Visit 05/03/2020 05/03/2019 Mammogram 04/18/2024 04/18/2023, 03/23, 04/15/2022, Additional history exists DXA Scan 10/28/2024 10/28/2017, 09/2009, 10/23/2009 Depression Monitoring 05/31/2025 05/31/2024 TSH 08/02/2025 08/02/2024, 04/23, 12/24/2023, Additional history exists GFR 09/28/2025 09/28/2024, 07/23, 08/02/2024, Additional history exists Albumin/Creatinine Ratio 06/23/2026 023, [...] Zoster Vaccines Completed 11/06/2021, 08/02/2021 Pneumococcal Vaccine: 50+ Years Completed 09/01/2023, 10/04/2016, 06/23/2015 Influenza Vaccine (FLU shot) Completed 05/31/2024, 06/23/2023, 05/23/2022, Additional history exists COVID-19 Vaccine Completed 07/29/2024, 03/2023, 06/12/2021, Additional history exists HPV (Gardasil) Vaccine Aged [...] Documents on File Type Date Recorded Patient Regional Director Expl anation Power of Bee Robber 08/28/2016 POWER OF A TTORNEY POWER OF ULTRASOUND TESTER [facility] Care Teams Radar Mechanic Relationship Specialty Start Date End Date Uma Mark DO [address] [place] [address] PCP - General Family Medicine 12/20/22 documented as of this encounter
[2024-10-13] MEDS ORDERED: POLYETHYLENE (MIRALAX) 17 GM PACK PO PRN (16:42)
[2024-10-13] MEDS ORDERED: ONDANSETRON INJ 2 MG/ML 2 ML VIAL IV PRN (16:42)
[2024-10-13] MEDS: tiZANidine HCL 4 MG TABLET PO SCH (20:07)
[2024-10-13] MEDS: DOCUSATE SODIUM 100 MG CAP PO SCH (20:07)
[2024-10-13] MEDS: ATENOLOL 25 MG TABLET PO SCH (20:08)
[2024-10-13] MEDS: PRAMIPEXOLE DIHYDROCHLO 0.5 MG TAB PO SCH (20:09)
[2024-10-13] MEDS: ATORVASTATIN 10 MG TAB PO SCH (20:10)
[2024-10-13] MEDS: PANTOprazole 40 MG TAB PO SCH (20:11)
[2024-10-13] MEDS: busPIRone 5 MG TAB PO SCH (20:11)
[2024-10-13] MEDS: FUROSEMIDE 20 MG TAB PO SCH (20:12)
[2024-10-13] MEDS: CALCIUM CARBONATE 1250MG TAB PO SCH (20:13)
[2024-10-13] MEDS: ACETAMINOPHEN 500 MG TAB PO SCH (21:26)
[2024-10-13] MEDS: CYPROHEPTADINE HCL 4 MG TAB PO SCH (21:27)
[2024-10-13] MEDS: HYDROCORTISONE HC 2.5% CRM 30GM TUBE EXT SCH (21:27)
[2024-10-13] MEDS: LORazepam 0.5 MG TAB PO PRN (22:41)
[2024-10-14] MEDS: oxyCODONE HCL IR 5 MG TAB (IMMEDIATE RELEASE) PO PRN (02:59)
[2024-10-14] MEDS: LEVOTHYROXINE SODIUM 88 MCG TABLET PO SCH (05:37)
[2024-10-14 07:41] LABS: Hematocrit (blood only) 37.8 % (37.0-47.0); Hemoglobin 12.8 g/dl (12.0-16.0); Mean Corpuscular Hemoglobin 35.7 pg (25.0-34.0); Mean Corpuscular Hgb Conc 33.9 g/dL (32.0-36.0); Mean Corpuscular Volume 105.3 fL (80.0-100.0); Mean Platelet Volume 8.7 fL (9.4-12.4); Platelet Count 268 K/uL (130-400); RDW Coefficient of Variation 14.1 % (11.5-14.5); RDW Standard Deviation 55.2 fL (36.4-46.3); Red Blood Count 3.59 M/uL (4.20-5.40); White Blood Count 6.77 K/ul (4.8-10.8)
[2024-10-14 07:52] VITALS: RESP 16
[2024-10-14 07:54] LABS: BUN Creatinine Ratio 45.8 (10-20); Calcium 9.7 mg/dl (8.6-10.3); Chol HDL Ratio 2.8 (0-5); Creatinine Clr Calc Pharmacy 109.7 ml/min
[2024-10-14] MEDS: POLYETHYLENE (MIRALAX) 17 GM PACK PO SCH (08:30)
[2024-10-14] MEDS: LOSARTAN POTASSIUM 50 MG TAB PO SCH (08:40)
[2024-10-14] MEDS: FERROUS SULFATE 325 MG TAB PO SCH (08:41)
[2024-10-14] MEDS: azaTHIOprine 50 MG TAB PO SCH (08:41)
[2024-10-14] MEDS: buPROPion XL 150 MG TABCR PO SCH (08:41)
[2024-10-14] MEDS: ASPIRIN 81 MG ECTAB PO SCH (08:41)
[2024-10-14] MEDS: DULoxetine HCL 30 MG CAP PO SCH (08:41)
[2024-10-14] MEDS: CHOLECALCIFEROL 125 MCG (5,000 UNITS) TAB PO SCH (08:41)
[2024-10-14] MEDS: DULoxetine HCL 60 MG CAP PO SCH (08:41)
[2024-10-14] MEDS: FOLIC ACID 1 MG TAB PO SCH (08:41)
[2024-10-14] MEDS: CEROVITE ADV FORMULA TAB PO SCH (08:42)
[2024-10-14] MEDS: VITAMIN B COMPLEX TAB PO SCH (08:42)
[2024-10-14] MEDS: valACYclovir HCL 500 MG TABLET PO SCH (08:42)
[2024-10-14] MEDS: MAGNESIUM OXIDE 400 MG TAB PO SCH (08:42)
[2024-10-14 10:08] LABS: Estimated Average Glucose 120 mg/dl; Hemoglobin A1C 5.8 % (4.5-5.6)
[2024-10-14] MEDS: REGADENOSON 0.4 MG/5 ML SYR IV ONE (11:08)
[2024-10-14 11:52] VITALS: BP 162/84; TEMP 97.9; O2SAT 96
--- NOTE | 2024-10-14 12:39 | Myocardial Perfusion Study ---
Date of Service October 14, 2024 Myocardial Perfusion Study [facility] Myocardial Perfusion Study Report LEXISCAN STRESS MYOCARDIAL PERFUSION IMAGING STUDY Indication: Atypical chest pain, shortness of breath Brief description: Rest portion-at 8:00 AM the patient was injected with 9.4 mCi Tc 99m Cardiolite IV. 1 hour following injection, myocardial perfusion imaging was performed in multiple projections. Stress portion-baseline heart rate, blood pressure, and EKG were obtained. The same parameters were monitored continuously for 3 minutes of infusion and 3 minutes recovery. They were intermittently recorded. Patient was infused with 0.4 mg Lexiscan IV followed by immediate injection of 28.2 mCi of technetium 99m Cardiolite IV. 30 minutes following injection, myocardial perfusion imaging was performed in multiple projections similar to those used for the rest portion. No symptoms were reported during infusion. Hemodynamic and electrocardiographic findings: 1. Resting heart rate was 68 bpm and aruna to a maximum of 92 bpm with Lexiscan infusion. 2. Resting blood pressure was 184/93 mmHg and dropped to a minimum of 168/87 mmHg with Lexiscan infusion. 3. Baseline EKG was abnormal. It showed normal sinus rhythm with voltage criteria of LVH, right bundle branch block, and could not exclude old inferior and lateral myocardial infarction. There were no diagnostic ST segment or T wave changes with Lexiscan infusion. No Lexiscan induced arrhythmias. Myocardial perfusion imaging findings: 1. Raw data analysis demonstrates mild breast attenuation artifact. This is a good quality study for interpretation. 2. Gated myocardial perfusion imaging demonstrates normal size LV, normal wall motion, and normal EF (calculated at 89% which appears to be an overestimation) 3. There is a mild intensity, medium size (6% of myocardium), mostly fixed MPI defect limited to the distal septal and distal inferolateral myocardium sparing the apex. This is most consistent with breast attenuation artifact. Infarct plus minimal bharat-infarct ischemia cannot be excluded. 4. Mildly abnormal study. Low risk of ischemia. No prior study for comparison. Taken as a whole I would consider this a low risk study with abnormality secondary to artifact. Recommend discussion of results with primary airway controller. [facility] Myocardial perfusion code Indication for Procedure (1) Atypical chest pain: Procedure Code Procedure 1: Myocardial Perfusion Codes: 62097 Cardiovascular Stress Test, multiple Procedure 3: Myocardial Perfusion Codes: 32904 Cardiovascular Stress Test, supervision only Procedure 2: Myocardial Perfusion Codes: 07957 Cardiovascular Stress Test, interpretation and report
--- NOTE | 2024-10-14 14:54 | Discharge Summary ---
Date of Service October 14, 2024 Admission HPI Per Admitting Provider 73-year-old female who has a significant PMHx of polymyositis, HTN, HLD, hypothyroidism, RLS, major depressive disorder, PTSD, anxiety and history of GERD who presented to ED secondary to Chest pain. External chart review was performed. Pt was recently seen in outpt setting due to complaints of chest pain, weakness and body vibrations. Lab work up revealed an elevated troponin and d-dimer. She had a CTA Chest which was negative for PE. She had a resting echo which showed preserved EF w/o WMA. She was planning to get an outpt stress test in the future. She reports chest pain with activity that is located on the left side of her chest and radiates under her left arm. Yesterday her pain was so severe it made her cough. She states it lasts for seconds and then it goes away. " I want to know why I feel the way I do." She feels her Right leg is more swollen that her left. She complains of tingling/neuropathy pain when legs are touch but this is chronic for her. She does have SOB with minimal exertion that has been ongoing. She reports having hemorrhoids in the past and recently had an episode of BRBPR. She denies any recent falls. She walks with a walker. She denies any alcohol use and admits to being alcohol free for a few uses to support her son who is sober for 6 years. She denies any tobacco use. In ED pt remained hemodynamically stable. Her ECG was w/o ischemic change and trop was negative. Admission Exam Per Admitting Provider GENERAL APPEARANCE: AxOx4, generally well-appearing F, SOB when trying to adjust in bed HEENT: NC, AT. MMM. EOMI, clear conjunctiva, oropharynx clear. NECK: Supple without lymphadenopathy. No stiffness or restricted ROM. HEART: Normal rate and regular rhythm, normal S1/S1, no m/r/g LUNGS: CTAB, moving air well. No crackles or wheezes are heard. ABDOMEN: Soft, nontender, nondistended with good bowel sounds heard. : Anus examined, small hemorrhoid with appearance of recent bleed/dried blood. EXTREMITIES: Without cyanosis, clubbing or edema. NEUROLOGICAL: Grossly nonfocal. Alert and oriented, moving all 4 extremities. CN not formally tested but appear grossly intact. Skin: Warm and dry without any rash. Principal Diagnosis Atypical chest pain Discharge Exam GENERAL APPEARANCE: AxOx4, generally well-appearing F, no sob, NAD. HEENT: NC, AT. MMM. EOMI, clear conjunctiva, oropharynx clear. NECK: Supple without lymphadenopathy. No stiffness or restricted ROM. HEART: Normal rate and regular rhythm, normal S1/S1, no m/r/g LUNGS: CTAB, moving air well. No crackles or wheezes are heard. ABDOMEN: Soft, nontender, nondistended with good bowel sounds heard. EXTREMITIES: Without cyanosis, clubbing or edema. NEUROLOGICAL: Grossly nonfocal. Alert and oriented, moving all 4 extremities. CN not formally tested but appear grossly intact. Skin: Warm and dry without any rash. Discharge Data Allergies Allergy/AdvReac Type Severity Reaction Status Date / Time diphenhydramine Allergy Intermediate Hallucinati Verified 02/25/24 17:04 [From Benadryl] ng morphine AdvReac Severe Low BP Verified 02/25/24 17:04 gabapentin AdvReac Intermediate swelling Verified 02/25/24 17:04 of lower legs lisinopril AdvReac Intermediate Cough Verified 02/25/24 17:04 pregabalin [From Lyrica] AdvReac Intermediate sweating/ho Verified 02/25/24 17:04 t Consultations 10/13/24 14:24 ED Decision to Admit Stat Hospital Course (1) Atypical chest pain: (2) HTN (hypertension): (3) Dyslipidemia: (4) Polymyositis: Plan 73-year-old female who has a significant PMHx of polymyositis, HTN, HLD, hypothyroidism, RLS, major depressive disorder, PTSD, anxiety and history of GERD who presented to ED secondary to Chest pain. She was managed as : Atypical Chest Pain admitted to PCU for observation outpt resting echo with preserved EF and w/o WMA Troponin trends x 4 negative, nuclear stress test with low probability for inducible ischemia. Patient with no chest pain today, patient reports back to her baseline. Patient will be discharged with a plan for close follow-up with the PCP on discharge. Continue prior to arrival cardiac medications. HTN: chronic, bp elevated in ED likely in setting of anxiety, on losartan, lasix and atenolol, monitor HLD: chronic, stable continue statin Depression/PTSD/Anxiety: continue duloxetine, buspar, wellbutrin, prn lorazepam DVT ppx: SCDS for now, pt with some brbpr from hemorrhoids, Continue with hydrocortisone cream. DNR/DNI PCP: Hien Deedee Patient is hemodynamically stable, denies chest pain, would like to go home. Patient is being discharged with following instructions at the point of discharge: Follow-up with your primary care physician within a week time and likely you will need labs CBC/CMP/magnesium/phosphorus. You were evaluated for chest pain while in hospital, your heart enzyme trends were negative/normal, you underwent stress test which indicated low probability of any ischemia/heart muscle damage. You are encouraged to further follow-up and discuss with your primary care physician upon discharge on this result and for your ongoing monitoring. Continue to follow-up with your rheumatology as prior for your underlying diagnosis of polymyositis. Take your medications as prescribed. Please make sure that you are able to get your medications today by calling your pharmacy before you leave the hospital so that your treatment continuity is not broken. Home Health Attestation I certify that this patient is under my care and that I, or a physicians application assistant working with me, had a face to-face encounter that meets the home health [id number] encounter requirements with this patient. The encounter with the patient was in whole, or in part, for the following medical condition, which is the primary reason for home health care (list medical condition): I certify that, based on my findings, the following services are medically necessary home health services: My clinical findings support the need for the above services because: Further, I certify that my clinical findings support that this patient is homebound (i.e. absences from home require considerable and taxing effort and are for medical reasons or holiness services or infrequently or of short duration when for other reasons) because: Certification for Home Health Services: Based on the above findings, I certify that this patient is confined to the home and needs intermittent penitentiary care, physical therapy and/or speech therapy or continues to need occupational therapy. The patient is under my care, and I have initiated the establishment of the plan of care. This patient will be followed by a physician who will periodically review the plan of care. Total Time Total Time Spent Total Time Spent (In Minutes): 35 Discharge Plan Discharge Items Patient Disposition: Home - Self-Care Reason For Visit: CHEST PAIN Discharge Diagnosis: Atypical chest pain Condition on Discharge: Good Activity: Resume your previous activity Non-emergency contact: Primary Care Provider Call non-emergency contact if: you have any medication questions, your symptoms worsen and your temperature is above 101 Follow-up/Referrals: Uma Mark DO [Primary Care Provider] - Diet: Heart Healthy Addtl Attending Provider Instructions: Follow-up with your primary care physician within a week time and likely you will need labs CBC/CMP/magnesium/phosphorus. You were evaluated for chest pain while in hospital, your heart enzyme trends were negative/normal, you underwent stress test which indicated low probability of any ischemia/heart muscle damage. You are encouraged to further follow-up and discuss with your primary care physician upon discharge on this result and for your ongoing monitoring. Continue to follow-up with your rheumatology as prior for your underlying diagnosis of polymyositis. Take your medications as prescribed. Please make sure that you are able to get your medications today by calling your pharmacy before you leave the hospital so that your treatment continuity is not broken. Pending Studies at Discharge: No Stand-Alone Forms: My [facility] MailWriter, Smoking Cessation Medications and DC Order Prescriptions: New hydrocortisone [Proctosol HC] 2.5 % Cream With Perineal Applicator 1 applic EXT BID 7 Days Qty: 30 0RF Continued cyproheptadine 4 mg Tablet 4 mg PO HS ferrous sulfate 325 mg (65 mg iron) Tablet 325 mg PO Q2D buspirone 10 mg Tablet 10 mg PO .EVERY 8 HRS docusate sodium 100 mg Capsule 100 mg PO AMHS omeprazole 20 mg Capsule,Delayed Release(Dr/Ec) 20 mg PO AMHS folic acid 1 mg Tablet 1 mg PO QAM bupropion HCl [Wellbutrin XL] 150 mg Tablet Extended Release 24 Hr 150 mg PO QAM cholecalciferol (vitamin D3) [Vitamin D3] 5,000 unit Tablet 5,000 unit PO QAM levothyroxine 88 mcg Tablet 88 mcg PO DAILYBB Rx Instructions: before breakfast ondansetron HCl 4 mg tablet 4 mg PO Q6 PRN (Reason: Nausea) meclizine 12.5 mg tablet 12.5 mg PO TID PRN (Reason: Dizziness) valacyclovir 500 mg tablet 500 mg PO QAM vitamin B complex Tablet 1 tab PO DAILY cyanocobalamin (vitamin B-12) [Vitamin B-12] 5,000 mcg Tablet, Sublingual 5,000 mcg SUBLINGUAL DAILY Ocuvite Eye Health 50 mg-15 unit- 4.5 mg-2.5 mg Tablet,Chewable 1 tab PO DAILY aspirin 81 mg tablet,delayed release (DR/EC) 81 mg PO DAILY 42 Days Qty: 0 0RF acetaminophen 500 mg Tablet 1,000 mg PO Q8 polyethylene glycol 3350 [Miralax] 17 gram powder in packet 17 g PO DAILY tizanidine 2 mg tablet 2 mg PO Q8 calcium carbonate 500 mg calcium (1,250 mg) Tablet 500 mg PO BID atorvastatin 10 mg Tablet 10 mg PO HS multivitamin Tablet 1 tab PO HS nystatin 100,000 unit/gram Cream See Rx Instructions .ROUTE .COMPLEX Rx Instructions: Apply 1 application topically twice a day as needed magnesium oxide 400 mg magnesium Tablet 400 mg PO DAILY atenolol 25 mg Tablet 25 mg PO BID Qty: 60 0RF furosemide 20 mg Tablet 20 mg PO BID Qty: 60 0RF duloxetine [Cymbalta] 30 mg capsule,delayed release(DR/EC) 30 mg PO DAILY Qty: 30 0RF Rx Instructions: Take one tablet daily along with a 60mg daily to = 90mg a day. duloxetine [Cymbalta] 60 mg capsule,delayed release(DR/EC) 60 mg PO DAILY Qty: 30 0RF Rx Instructions: Take one capsule by mouth daily along with a 30mg capsule to = 90mg daily pramipexole 0.5 mg Tablet 0.5 mg PO Q8 Qty: 18 0RF azathioprine 50 mg tablet 100 mg PO QAM losartan 50 mg tablet 50 mg PO DAILY lorazepam 0.5 mg tablet 0.5 mg PO HS PRN (Reason: anxiety/insomnia) Rx Instructions: Per patients daughter- patient received both strengths of lorazepam in the mail and she accidently threw it away- she hasn't had either prescriptions for about 1 month rosuvastatin 10 mg tablet 10 mg PO DAILY Discharge Orders: Discharge Order (Routine); Ordered 10/14/24 Ordered By: Arielle Schulte Admission Data Admit Date/Time: 10/13/24 14:29 Attending Provider: Arielle Schulte Admit Provider: Marylu Meehan Primary Care Provider: Uma Mark. Other Providers: Marylu Meehan
[2024-10-14 15:28] VITALS: PULSE 88
--- OUTSIDE RECORDS SUMMARY | 2024-10-15 01:25 | External Medical Summary | Summary of Care ---
Author Name Unknown Organization [facility] Address [address] [place] [address] Phone [phone] Care Team Providers Care Emblem Fuser Tender Name Role Phone Destiny Mark DO Primary Care Provider Reason for Visit * Reason Comments eRx-Medication Refill Encounter Details Date Type Department Care Team (Late st Contact Info) Description 10/12/2024 Refill [facility] [address] [facility] [place] [phone] Destiny Mark DO [address] [facility] [place] [address] HTN, GOAL BELOW 140/90 Allergies Active Allergy Reactions Criticality Noted Date Comments Diphenhydramine 06/12/2023 HALLUCINATIONS. Gabapentin 10/10/2022 Retained fluid Lisinopril Cough 08/09/2019 Pregabalin Other (Please comment) 02/14/2023 Hot all over " I felt like I was on fire inside and out" Morphine Sulfate 07/19/2010 Lowers her blood pressure documented as of this encounter (statuses as of 10/12/2024) Medications CALCIUM 600 600 MG PO TABSIndications:in [...] AND BEFORE BEDTIME 20 Tablet 024 Active Nystatin 590262 UNIT/GM External Powder (Nystop)Indication s:Damari rash of [...] mouth daily AND 1 Tablet every afternoon. 024 Active Loratadine 10 MG Oral Tablet (Claritin)Indicati [...] 4 TIMES A DAY 100 g 1 024 Active valACYclovir HCl 500 MG Oral Tablet (Valtrex)Indicatio ns:Oral ulcer TAKE 1 TABLET BY MOUTH IN THE MORNING. FOR TRANSMISSION REDUCTION. 90 Tablet 1 024 Active Pramipexole Dihydrochloride 0.5 MG Oral Tablet [...] ns:Hypothyroidism TAKE 1 TABLET BY MOUTH EVERY DAY IN THE MORNING ON AN EMPTY STOMACH 90 Tablet 3 025 Active azaTHIOprine 50 MG Oral Tablet (Imuran) TAKE 2 TABLETS BY MOUTH EVERY MORNING 180 Tablet 025 Active Polyethylene Glycol 3350 17 GM Oral Packet Take 1 Packet by mouth in the morning and 1 Packet before bedtime. 024 Active Atenolol 25 MG Oral Tablet (Tenormin)Indicati ons:HTN, goal below 140/90 TAKE 1 TABLET IN THE MORNING AND IN THE EVENING 180 Tablet 3 025 Active Atenolol 25 MG Oral Tablet (Tenormin)Indicati ons:HTN, goal below 140/90 TAKE 1 TABLET IN THE MOring and in the evening 180 Tablet 1 024 2024 Discontinued documented as of this encounter (statuses as of 10/12/2024) Active Problems Problem Noted Date Diagnosed Date Pain in both feet 05/30/2023 ILD (interstitial lung disease) 04/12/2021 History of [...] as of this encounter (statuses as of 10/12/2024) Resolved Problems Problem Noted Date Diagnosed Date Resolved Date Food insecurity 03/31/2023 10/07/2024 Overview: Per [facility] Protocol Occupational exposure in workplace 04/12/2021 01/28/2023 Prediabetes [...] as of this encounter (statuses as of 10/12/2024) Immunizations Name Administration Dates Next Due COVID-19 [...] encounter Miscellaneous Notes * Telephone Encounter - Feli Iniguez [facility] - 10/12/2024 9:59 AM ESTSigned Prescriptions: Disp Refills Atenolol 25 MG Oral Tablet (Tenormin) 180 Ta*3 Sig: TAKE 1 TABLET IN THE MORNING AND IN THE EVENINGAuthorizing Provider: DESTINY MARK User: FELI INIGUEZ documented in this encounter Plan of Treatment Upcoming Encounters Date Type Department Care Team (Latest Contact Info) Description 10/13/2024 9:20 AM EST Telemedicine Family Practice [facility] [address] [place] [address] Briseyda Hurt CRNP [address] [place] [address] 10/28/2024 2:00 PM EST Office Visit Rheumatology [facility] [address] [place] [phone] Lance Castanon CRNP [address] [facility] [place] [address] 10/29/2024 3:00 PM EST Office Visit Nephrology, [facility] [address] [place] [address] Brigido Francis MD [address] [place] [address] 11/10/2024 1:00 PM EST Telemedicine Pharmacy, [facility] [address] [place] [address] [facility] [address] [place] [address] 11/11/2024 10:00 AM EST Imaging [facility] 2nd Floor Cardiology, [place] [address] [place] [address] Gw, Excess Time Radiology [address] [place] [address] 12/06/2024 9:15 AM EDT Hospital Encounter [facility], Operating Room [facility] [address] [place] [address] Natan Collins, DO [address] [place] [address] 12/06/2024 9:15 AM EDT - 12/06/2024 9:40 AM EDT Surgery OR [facility], Operating Room [facility] [address] [place] [address] Natan Collins, DO [address] [place] [phone] L-/S-SPINE PARAVERTEBRAL FACET INJ, 1 LEVEL 12/20/2024 9:15 AM EDT Hospital Encounter OR [facility], Operating Room [facility] [address] [place] [phone] Natan Collins, DO [address] [place] [address] 12/20/2024 9:15 AM EDT - 12/20/2024 9:40 AM EDT Surgery OR [facility], Operating Room [facility] [address] [place] [address] Natan Collins, DO [address] [place] [phone] L-/S-SPINE PARAVERTEBRAL FACET INJ, 1 LEVEL 12/28/2024 3:00 PM EDT Office Visit Pulmonary Medicine, [facility] [address] [place] [address] Bryant Dawson MD [address] [place] [address] 12/29/2024 10:00 AM EDT Office Visit Rheumatology [facility] [address] [place] [phone] Lance Castanon CRNP [address] [place] [address], [place] [address] 01/03/2025 7:35 AM EDT Hospital Encounter [facility], Operating Room [facility] [address] [place] [address] Natan Collins, [address] [place] [address] 01/03/2025 7:35 AM EDT - 01/03/2025 8:25 AM EDT Surgery OR [facility], Operating Room [facility] [address] [place] [address] Natan Collins, [address] [place] [address] DESTROY LUMBAR SACRAL NERVE IMAGING SINGLE 04/01/2025 8:30 AM EDT Office Visit [facility] Franklin Becerra [address] [place] [phone] Destiny Mark, DO [address] [place] [address] Scheduled Procedures Name Priority Associated Diagnoses Date/Ti [...] of this encounter Visit Diagnoses Diagnosis HTN, GOAL BELOW 140/90 Unspecified essential hypertension Spondylosis of lumbar region without myelopathy or radiculopathy Lumbosacral spondylosis without myelopathy Spondylosis of lumbar region without myelopathy or radiculopathy Lumbosacral spondylosis without myelopathy Spondylosis of lumbar region without myelopathy or radiculopathy Lumbosacral spondylosis without myelopathy documented in this encounter Advance Directives Documents on File Type Date Recorded Patient Supervisor Winding Department Expl anation Power of Bicycle Ii Assembler 08/28/2016 POWER OF A TTORNEY POWER OF RN INFORMATICS INFO Care Teams Emblem Fuser Tender Relationship Specialty Start Date End Date Destiny Mark DO [address] [place] [address] PCP - General Family Medicine 12/20/22 documented as of this encounter
== END 2024-10-14 16:29 | disposition home or self-care (01) ==
LOC: 2W 11:07 → ED 11:07 → SUATTDRO 14:29 → 2W 16:12